=== PATIENT | female | born 1940 | race Caucasian/White ===

== ENCOUNTER 2024-04-23 08:49 | Inpatient (IN) | payer OTHER, SELFPAY ==
[2024-04-23] VITALS (28 sets, daily range): BP systolic 144–182; BP diastolic 59–88; PULSE 51–104; TEMP 36.6–37.1; O2SAT 93–98; BMI 29.6; BMI 29.7
--- NOTE | 2024-04-23 09:11 | XR_ITS ---
The [address] [address] Patient Name: BERNARDINO GUZMAN MRN: [id number] date: 1940 Sex: F Assigned Patient Location: ER Current Patient Location: ER Accession/Order Number: [id number] Exam Date: 04/23/2024 09:30 Report Date: 04/23/2024 11:06 At the request of: ERIS BRODY Procedure: XR chest 1V EXAMINATION: XR chest 1V HISTORY: shortness of breath COMPARISON: No relevant comparison available. TECHNIQUE: AP portable FINDINGS: LUNGS: Low lung volumes. Moderate bibasilar infiltrates left greater than right obscuring the hemidiaphragms and heart borders VASCULATURE: Moderately increased pulmonary vascularity PLEURA: No pneumothorax. Bilateral pleural effusions CARDIAC: No cardiomegaly or cardiac silhouette abnormality. MEDIASTINUM: No visible mass or adenopathy. BONES: No fracture or visible bone lesion. OTHER: Negative. XR/XR chest 1V IMPRESSION: Moderate bibasilar infiltrates likely consolidation and pleural effusions, left greater than right Electronically authenticated by: SABINE HARRIS Date: 04/23/2024 11:06
--- NOTE | 2024-04-23 09:11 | ECG_ITS ---
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
--- NOTE | 2024-04-23 09:12 | CT_ITS ---
The [address] [address] Patient Name: BERNARDINO GUZMAN MRN: [facility]:[id number] date: 1940 Sex: F Assigned Patient Location: ER Current Patient Location: ER Accession/Order Number: [id number] Exam Date: 04/23/2024 09:30 Report Date: 04/23/2024 10:13 At the request of: ERIS BRODY Procedure: CT cervical spine wo con EXAM: CT head/brain wo con, CT cervical spine wo con HISTORY: fall, history of prior odontoid fracture COMPARISON: CT head and cervical spine 01/27/2024. TECHNIQUE: Axial noncontrast CT imaging of the head and cervical spine was performed with coronal and sagittal reformats. This CT exam was performed using one or more of the following dose reduction techniques: Automated exposure control, adjustment of the MA and/or kV according to patient size, or use of iterative reconstruction technique. FINDINGS: CT head Calvarium/skull base: No evidence of acute fracture or destructive lesion. Bilateral platinum ocular lens replacements. Paranasal sinuses: No air fluid levels. Brain: No acute intracranial hemorrhage. No acute large vascular territory infarct. 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 Stable mild parenchymal volume loss. Stable expanded empty sella. No mass lesion or mass effect. No hydrocephalus. CT cervical spine Alignment: Stable alignment of the cervical spine with reversal normal cervical lordosis inferiorly. Vertebrae: Vertebral body heights are maintained. No acute fracture. Craniocervical junction: Ununited dens fracture is noted with slight increase in degree of widening along the fracture line compared to 01/27/2024 but otherwise stable alignment. Stable appearance of circumferential pannus surrounding the dens which mildly narrows the cranial cervical junction unchanged from prior. Degenerative changes: Stable degenerative change of the cervical spine most prominent at C5-C6 with a large posterior disc osteophyte complex at this level with associated advanced bilateral uncovertebral arthropathy resulting in at least moderate if not advanced canal stenosis and advanced left foraminal stenosis. Additional multilevel moderate foraminal stenosis secondary to uncovertebral and facet arthropathy is redemonstrated. Additional Comments: Vascular sclerosis. Partially visualized pleural effusions. CT/CT cervical spine wo con IMPRESSION: 1. No acute intracranial process. 2. Chronic changes described above. 3. Ununited dens fracture with minimal increase in degree of widening compared to orbit otherwise stable alignment. 4. No new/acute fractures of the cervical spine are present. 5. Stable degenerative change of the cervical spine compared to prior. 6. Partially visualized bilateral pleural effusions. Electronically authenticated by: BREA SMILEY Date: 04/23/2024 10:13
--- NOTE | 2024-04-23 09:12 | CT_ITS ---
The [address] [address] Patient Name: BERNARDINO GUZMAN MRN: [id number] date: 1940 Sex: F Assigned Patient Location: ER Current Patient Location: Accession/Order Number: [id number] Exam Date: 04/23/2024 09:30 Report Date: 04/23/2024 10:13 At the request of: ERIS BRODY Procedure: CT head/brain wo con EXAM: CT head/brain wo con, CT cervical spine wo con HISTORY: fall, history of prior odontoid fracture COMPARISON: CT head and cervical spine 01/27/2024. TECHNIQUE: Axial noncontrast CT imaging of the head and cervical spine was performed with coronal and sagittal reformats. This CT exam was performed using one or more of the following dose reduction techniques: Automated exposure control, adjustment of the MA and/or kV according to patient size, or use of iterative reconstruction technique. FINDINGS: CT head Calvarium/skull base: No evidence of acute fracture or destructive lesion. Bilateral [place] ocular lens replacements. Paranasal sinuses: No air fluid levels. Brain: No acute intracranial hemorrhage. No acute large vascular territory infarct. 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 Stable mild parenchymal volume loss. Stable expanded empty sella. No mass lesion or mass effect. No hydrocephalus. CT cervical spine Alignment: Stable alignment of the cervical spine with reversal normal cervical lordosis inferiorly. Vertebrae: Vertebral body heights are maintained. No acute fracture. Craniocervical junction: Ununited dens fracture is noted with slight increase in degree of widening along the fracture line compared to 01/27/2024 but otherwise stable alignment. Stable appearance of circumferential pannus surrounding the dens which mildly narrows the cranial cervical junction unchanged from prior. Degenerative changes: Stable degenerative change of the cervical spine most prominent at C5-C6 with a large posterior disc osteophyte complex at this level with associated advanced bilateral uncovertebral arthropathy resulting in at least moderate if not advanced canal stenosis and advanced left foraminal stenosis. Additional multilevel moderate foraminal stenosis secondary to uncovertebral and facet arthropathy is redemonstrated. Additional Comments: Vascular sclerosis. Partially visualized pleural effusions. CT/CT head/brain wo con IMPRESSION: 1. No acute intracranial process. 2. Chronic changes described above. 3. Ununited dens fracture with minimal increase in degree of widening compared to orbit otherwise stable alignment. 4. No new/acute fractures of the cervical spine are present. 5. Stable degenerative change of the cervical spine compared to prior. 6. Partially visualized bilateral pleural effusions. Electronically authenticated by: BREA SMILEY Date: 04/23/2024 10:13
--- NOTE | 2024-04-23 09:28 | PC.NURSE ---
pt sent from [facility] assisted living for increase weight gain in the last month (approx 30lbs). Weighs 162lbs now. Increased SOB as well. lungs are wheezy and pt is tachypnic. O2 sat 96% on RA. Pt also fell last night trying to get out of bed -- denies hitting head and appears to have no injury besides a skin tear to R elbow. Pt is on blood thinners. warfarin.
[2024-04-23 09:29] LABS: Hematocrit 33.5 % (36.0-48.0); Hemoglobin 10.4 g/dL (12.0-16.0); Mean Corpuscular Hemoglobin 26.3 pg (26.7-34.0); Mean Corpuscular Volume 84.8 fL (81.0-99.0); Mean Platelet Volume 11.6 fL (9.5-13.5); Platelet Count 389 10^3/uL (150-450); Red Blood Count 3.95 10^6/uL (4.20-5.40); Red Cell Distribution Width 14.3 % (11.0-15.0); White Blood Count 11.7 10^3/uL (4.0-11.0)
[2024-04-23 10:00] LABS: Lymphocytes Absolute Manual 0.93 10^3/uL (1.20-3.80); Monocytes Absolute Manual 0.58 10^3/uL (0.30-0.80); Segmented Neut Absolute Manual 10.17 10^3/uL (1.4-6.5)
--- NOTE | 2024-04-23 10:00 | ED_ITS ---
HPI HPI - General Adult General Chief complaint: Shortness of Breath/Dyspnea Stated complaint: GENERAL WEAKNESS/ FALL Time Seen by Provider: 04/23/24 08:54 Source: patient, family and medical record Mode of arrival: Wheelchair Limitations: physical limitation History of Present Illness HPI narrative: 84-year-old female to the emergency department with chief complaint of fall and difficulty walking. Patient had a cervical spine injury in January which led to a hospitalization and a rehab stay afterwards. She has been living at the [facility] ever since the accident in January. Patient has a history of atrial fibrillation as well as heart failure. She has not seen her lighting adviser in some time. She was seen by Dr. Castillo previously at [facility] for a pacemaker placement. Family reports that she has gained 30 pounds in the last month despite taking Lasix 40 mg oral daily. The weight seems to be in her legs. Initially it was her lower legs are edematous but now it is spreading up to her upper legs. She has not required oxygen. She has not had any fever, sweats, chills, cough, shortness of breath. She denies any chest discomfort. Related Data Home Medications ?Medication ?Instructions ?Recorded ?Confirmed acetaminophen 500 mg capsule 1,000 mg PO .Q8HRS PRN fever or 04/23/24 04/23/24 pain cholecalciferol (vitamin D3) 25 25 mcg PO DAILY 04/23/24 04/23/24 mcg (1,000 unit) capsule citalopram 20 mg tablet (Celexa) 20 mg PO DAILY 04/23/24 04/23/24 cyanocobalamin (vitamin B-12) 1,000 mcg PO DAILY 04/23/24 04/23/24 1,000 mcg capsule diltiazem HCl 120 mg 120 mg PO .QHS 04/23/24 04/23/24 capsule,extended release 12 hr furosemide 20 mg tablet 40 mg PO DAILY 04/23/24 04/23/24 insulin lispro 100 unit/mL 1 sliding scale dose subcut 04/23/24 04/23/24 subcutaneous cartridge (Humalog USEASDIRECTD U-100 Insulin) lisinopril 2.5 mg tablet 2.5 mg PO DAILY 04/23/24 04/23/24 loperamide 2 mg capsule (Imodium 2 mg PO Q12H PRN loose stool 04/23/24 04/23/24 A-D) sennosides 8.6 mg capsule (senna) 8.6 mg PO DAILY PRN constipation 04/23/24 04/23/24 simvastatin 40 mg tablet 40 mg PO .QHS 04/23/24 04/23/24 trazodone 50 mg tablet 50 mg PO DAILY 04/23/24 04/23/24 warfarin 2.5 mg tablet 2.5 mg PO DAILY 04/23/24 04/23/24 Allergies Allergy/AdvReac Type Severity Reaction Status Date / Time No Known Drug Allergies Allergy Verified 04/23/24 09:05 Opioid HPI Opioid Management Most Recent Opioid Data: No Data to Display Review of Systems ROS Status of ROS 10 or more systems reviewed and unremark able except as noted in history and below Exam Narrative Exam Narrative: VITALS: I have reviewed the triage vital signs. GENERAL: Chronically ill-appearing elderly female in no distress NEURO: Alert and oriented. Moves all extremities. Face is symmetric and expressive. EYES: PERRL. No scleral icterus or conjunctival injection. No discharge. HENT: Normocephalic, atraumatic. Hearing is grossly intact. Nares grossly patent and without discharge. Mucous membranes moist. NECK: No JVD. Patient moves neck without restriction. CARDIO: Rhythm regular. Normal rate. No murmur, rub, or gallop. Pulses equal bilaterally in the upper and lower extremity. 3+ pitting edema to the lower extremities bilaterally. PULM: Trace Rales at the bases, otherwise clear. No conversational dyspnea. No splinting, stridor, or accessory muscle use. GI/: Abdomen is soft and non-tender. Normoactive bowel sounds. EXTREMITIES: Symmetric muscle bulk. No joint swelling. No clubbing, cyanosis, or deformity. SKIN: Warm and dry. Normal turgor. No rash or lesions appreciated. PSYCH: Mood, affect, and interaction is appropriate to the setting. Constitutional Vital Signs, click to edit/add: Last Vital Signs Temp 97.8 F 04/23/24 08:53 Pulse 84 04/23/24 11:10 Resp 21 H 04/23/24 11:10 BP 147/74 H 04/23/24 10:31 Pulse Ox 97 04/23/24 11:10 O2 Del Method Room Air 04/23/24 09:20 Course Vital Signs Vital signs: Vital Signs Temperature 97.8 F 04/23/24 08:53 Pulse Rate 81 04/23/24 08:53 Respiratory Rate 18 04/23/24 08:53 Blood Pressure 154/59 H 04/23/24 08:53 Pulse Oximetry 95 04/23/24 08:53 Oxygen Delivery Method Room Air 04/23/24 08:53 Temperature 97.8 F 04/23/24 08:53 Pulse Rate 84 04/23/24 11:10 Respiratory Rate 21 H 04/23/24 11:10 Blood Pressure 147/74 H 04/23/24 10:31 Pulse Oximetry 97 04/23/24 11:10 Oxygen Delivery Method Room Air 04/23/24 09:20 Medical Decision Making MDM Narrative Medical decision making narrative: Elderly female with fluid gain of 30 pounds over the last month. Vital stable, the patient is afebrile. She does have significant lower extremity edema. Cardiac workup is initiated. She did have a fall. Does not appear to have any extremity injuries or axial injuries. CT head and cervical spine are ordered given her advanced age and inability to rule out by clinical decision rules alone. Patient and her daughter agree with this plan. CT head: Negative CT C-spine: Nonunion of prior dens fracture. Widening of fracture. Lab work reviewed and noted. She has a slight increase in creatinine from 1.3 on recent outpatient labs to 1.5. No major electrolyte abnormalities. She is mildly supratherapeutic on her Coumadin, no intervention required at this time. Her troponin is within normal limits. Her BNP is significantly elevated correlating with her volume overloaded status. EKG without evidence of ischemia. She is intermittently paced on telemetry monitoring. Chest x-ray appears to have some evidence of volume overload and pleural effusion on my read. Radiologist read includes atelectasis versus consolidation bibasilar. Patient does not have a cough, fever and requirement. I do not believe that there is a pneumonia present clinically. I did call and discussed the CT cervical spine findings with Dr. Nieto her orthospine surgeon at [facility]. He reports that this is the expected appearance of a fibrous union. He has no further concerns at this time. If she is having neck discomfort she may wear a soft cervical collar. Patient does not have any neck pain at this time and is neurologically intact. Lasix was given. Case was discussed with the hospitalist who agreed admit this patient to his service Medical Records Medical records reviewed: Yes I reviewed the patient's medical records Lab Data Lab results reviewed: Yes I reviewed the patient's lab results Labs: Lab Results 04/23/24 04/23/24 Range/Units 09:10 09:58 WBC 11.7 H (4.0-11.0) 10^3/uL RBC 3.95 L (4.20-5.40) 10^6/uL Hgb 10.4 L (12.0-16.0) g/dL Hct 33.5 L (36.0-48.0) % MCV 84.8 (81.0-99.0) fL MCH 26.3 L (26.7-34.0) pg MCHC 31.0 (29.9-35.2) g/dL RDW 14.3 (11.0-15.0) % Plt Count 389 (150-450) 10^3/uL MPV 11.6 (9.5-13.5) fL Seg Neuts % (Manual) 87.0 H (43.0-75.0) Lymphocytes % (Manual) 8.0 L (20.5-60.0) % Monocytes % (Manual) 5.0 (1.7-12.0) % Eosinophils % (Manual) 0.0 L (0.9-7.0) % Basophils % (Manual) 0.0 L (0.2-2.0) % Neutrophils # (Manual) 10.17 H (1.4-6.5) 10^3/uL Lymphocytes # (Manual) 0.93 L (1.20-3.80) 10^3/uL Monocytes # (Manual) 0.58 (0.30-0.80) 10^3/uL Eosinophils # (Manual) 0.00 (0.00-0.70) 10^3/uL Basophils # (Manual) 0.00 (0.00-0.10) 10^3/uL PT 32.1 H (9.0-11.6) sec INR 3.42 APTT 39.4 H (22.3-36.2) sec Sodium 135 L (136-145) mmol/L Potassium 4.4 (3.5-5.1) mmol/L Chloride 99 (98-107) mmol/L Carbon Dioxide 25.2 (21.0-32.0) mmol/L Anion Gap 15.2 BUN 23.0 H (7.0-18.0) mg/dL Creatinine 1.52 H (0.55-1.02) mg/dL Est GFR ( Amer) 39 L (>=60 mL/min/1.73m^2) Est GFR (Non-Af Amer) 33 L (>=60 mL/min/1.73m^2) BUN/Creatinine Ratio 15.1 Glucose 208 H (74-106) mg/dL Calcium 9.1 (8.5-10.1) mg/dL Troponin I High Sens 23.6 (4.0-51.3) pg/mL NT-Pro-B Natriuret Pep 5984.0 H* (<=1800.0) pg/mL Imaging Data CT scan - head: Attestation: I have reviewed the pertinent imaging results. Radiologist's impression: ITS Impressions Chest X-Ray 04/23/24 09:11 IMPRESSION: Moderate bibasilar infiltrates likely consolidation and pleural effusions, left greater than right Electronically authenticated by: SABINE HARRIS Date: 04/23/2024 11:[address] 04/23/24 09:12 IMPRESSION: 1. No acute intracranial process. 2. Chronic changes described above. 3. Ununited dens fracture with minimal increase in degree of widening compared to orbit otherwise stable alignment. 4. No new/acute fractures of the cervical spine are present. 5. Stable degenerative change of the cervical spine compared to prior. 6. Partially visualized bilateral pleural effusions. Electronically authenticated by: BREA SMILEY Date: 04/23/2024 10:[address] 04/23/24 09:12 IMPRESSION: 1. No acute intracranial process. 2. Chronic changes described above. 3. Ununited dens fracture with minimal increase in degree of widening compared to orbit otherwise stable alignment. 4. No new/acute fractures of the cervical spine are present. 5. Stable degenerative change of the cervical spine compared to prior. 6. Partially visualized bilateral pleural effusions. Electronically authenticated by: BREA SMILEY Date: 04/23/2024 10:13 ECG Data Attestation: I personally reviewed and interpreted this ECG as follows: (Atrial fibrillation at a rate of about 80. No STEMI. Normal QTc.) Discharge Plan Discharge Chief Complaint: Shortness of Breath/Dyspnea Clinical Impression: Congestive heart failure, Volume overload, Supratherapeutic INR, Accidental fall, Atrial fibrillation Patient Disposition: Admitted As Inpatient Time of Disposition Decision: 11:57 Condition: Fair Prescriptions / Home Meds: No Action loperamide [Imodium A-D] 2 mg capsule 2 mg PO Q12H PRN (Reason: loose stool) lisinopril 2.5 mg tablet 2.5 mg PO DAILY senna 8.6 mg capsule 8.6 mg PO DAILY PRN (Reason: constipation) simvastatin 40 mg tablet 40 mg PO .QHS trazodone 50 mg tablet 50 mg PO DAILY cyanocobalamin (vitamin B-12) 1,000 mcg capsule 1,000 mcg PO DAILY warfarin 2.5 mg tablet 2.5 mg PO DAILY acetaminophen 500 mg capsule 1,000 mg PO .Q8HRS PRN (Reason: fever or pain) citalopram [Celexa] 20 mg tablet 20 mg PO DAILY cholecalciferol (vitamin D3) 25 mcg (1,000 unit) capsule 25 mcg PO DAILY diltiazem HCl 120 mg capsule,extended release 12 hr 120 mg PO .QHS furosemide 20 mg tablet 40 mg PO DAILY Humalog U-100 Insulin 100 unit/mL cartridge 1 sliding scale dose subcut USEASDIRECTD Print Language: Kiswahili Referrals: RIKKI PINEDO DO [Primary Care Provider] - 1 week
[2024-04-23 10:27] LABS: INR 3.42; Partial Thromboplastin Time 39.4 sec (22.3-36.2); Prothrombin Time 32.1 sec (9.0-11.6)
[2024-04-23 10:28] LABS: Anion Gap 15.2; BUN Creatinine Ratio 15.1; Calcium 9.1 mg/dL (8.5-10.1); Carbon Dioxide 25.2 mmol/L (21.0-32.0); Chloride 99 mmol/L (98-107); Estimated GFR (African America 39 (>=60 mL/min/1.73m^2); Estimated GFR (Non-African Ame 33 (>=60 mL/min/1.73m^2); Glucose 208 mg/dL (74-106); Potassium 4.4 mmol/L (3.5-5.1); Sodium 135 mmol/L (136-145); Troponin I High Sensitivity 23.6 pg/mL (4.0-51.3)
--- NOTE | 2024-04-23 11:44 | CA_ITS ---
Patient Name: BERNARDINO GUZMAN MR#: [id number] : 1940 Exam Date: 04/23/2024 Ordering Doctor: SHAIKH Jordan MCCOY . ECHOCARDIOGRAM REPORT PROCEDURE: CA ECHO DOPPLER COMPLETE INDICATIONS: chf, atrial fibrillation, pacemaker, chronic kidney disease COMPARISON: None. DESCRIPTION: COMPLETE ECHOCARDIOGRAM Real-time transthoracic echocardiography with 2D, M-mode, spectral and color flow Doppler performed. QUALITY: Technical quality was good. LEFT VENTRICLE: Normal chamber size. Normal left ventricular wall thickness. Overall systolic function appears preserved. The septum is abnormal and motion consistent with right ventricular pressure/volume overload. LV EF: Normal left ventricular ejection fraction, (55%). DIASTOLIC: Not adequately assessed due to heart rhythm. ATRIAL SEPTUM: LEFT ATRIUM: Severe dilatation. RIGHT ATRIUM: Moderate dilatation. RIGHT VENTRICLE: Mild chamber dilatation. Normal systolic function. Pacer wire present. TRICUSPID VALVE: Normal mobility and thickness. No stenosis with moderate to severe regurgitation. Doppler studies reveal moderately (45-60) elevated right sided pressures. RVSP 52 mmHg MITRAL VALVE: Moderately thickened with decreased mobility. Severe mitral annular calcification. Moderate regurgitation. AORTIC VALVE: Normal trileaflet appearance. Thickened aortic valve. Normal leaflet mobility. No aortic regurgitation. AORTIC ROOT: Normal diameter and appearance. PULMONIC VALVE: Normal thickness and mobility. No stenosis. Trivial regurgitation. PERICARDIUM: Small to moderate mostly posterior pericardial effusion. IVC: Collapses with inspirations. IVC is normal in size. PLEURA: CONCLUSION: 1. Left ventricular size and systolic function. LVEF is 55%. 2. Mildly dilated right ventricle with normal systolic function. 3. Moderate severe biatrial dilatation. 4. Moderate severe tricuspid regurgitation. 5. Moderate mitral regurgitation. 6. Moderately elevated right-sided pressures. 7. Small to moderate mostly posterior pericardial effusion. Adult Echocardiography Procedure Report Left Ventricle LVEDD (3.7 - 5.6 cm): 4.37 cm LVESD (2.2 - 4.0 cm): 3.63 cm LVIVS thickness (0.6 - 1.2 cm): 0.81 cm LVPW thickness (0.5 - 1.0 cm): 1.01 cm e': 1.75 m/s LVOT Max Gradient: 1.10 mm[Hg], 1.21 mm[Hg] LVOT Area (cm2): 0.54 m/s Peak Velocity (LVOT): 0.52 m/s, 0.55 m/s LVOT Diameter 1.66 cm Left Atrium Left Atrium Systolic Dimension: 3.97 cm Mitral Valve Right Ventricle Aorta AO Root Diam: 2.54 cm Aortic Valve AoV Area (Peak Trenotn): 1.10 cm2, 0.94 cm2, 1.30 cm2 Peak Velocity(Antegrade Flow): 1.20 m/s, 0.92 m/s Peak Gradient(Antegrade Flow): 5.78 mm[Hg], 3.36 mm[Hg] Tricuspid Valve Peak Velocity (Regurgitant Flow): 3.40 m/s, 3.18 m/s, 3.47 m/s, 3.50 m/s, 4.27 m/s, 3.11 m/s, 3.43 m/s Pulmonic Valve Peak Velocity: 1.26 m/s Peak Gradient: 5.97 mm[Hg], 6.66 mm[Hg] Right Atrium Right Atrium Systolic Pressure: 36.86 ml, 36.86 ml Dictated by: Mat Connolly M.D. on 04/23/2024 at 17:07 Approved by: Mat Connolly M.D. on 04/23/2024 at 17:13
[2024-04-23] MEDS: FUROSEMIDE 40 MG/4 ML VIAL IVP ×2 (12:16→21:14)
--- NOTE | 2024-04-23 13:43 | P.HP_ITS ---
HPI H&P: HPI History of Present Illness Chief complaint: GENERAL WEAKNESS/ FALL, FLUID OVERLOAD, CHF EXAC Narrative: 84-year-old female who currently lives in an assisted living facility presented to ER for increasing generalized weakness, progressively worsening lower extremity edema, shortness of breath on exertion and a weight gain of about 30 pounds in past few weeks. Patient is being treated for volume overload with oral Lasix as outpatient. As far as the patient and her daughter could tell, she does not have a history of congestive heart failure and has not had an echocardiogram recently. She does has a history of A-fib and has a pacemaker for it and currently uses Coumadin for stroke prophylaxis. Workup in ER revealed bilateral pleural effusion, elevated BNP, slightly worse serum creatinine. Patient was treated with IV Lasix and admitted for acute on chronic diastolic heart failure. Patient denies shortness of breath currently but is noted to have tachypnea at rest. Denies cough, fever, chest pain. Opioid HPI Opioid Management Most Recent Pain and Opioid Data: No Data to Display Review of Systems ROS Status of ROS 10 or more systems reviewed and unremark able except as noted in history and below PFSH PFSH Medical History (Updated 04/23/24 @ 13:47 by Shaikh León MD) PAD (peripheral artery disease) ?I73.9 - Peripheral vascular disease, unspecified (ICD-10) CKD stage 3 secondary to diabetes ?E11.22 - Type 2 diabetes mellitus with diabetic chronic kidney disease (ICD- 10) ?N18.30 - Chronic kidney disease, stage 3 unspecified (ICD-10) Type 2 diabetes mellitus ?E11.9 - Type 2 diabetes mellitus without complications (ICD-10) On Coumadin for atrial fibrillation ?I48.91 - Unspecified atrial fibrillation (ICD-10) ?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 Smoking status: Never smoker Non-prescribed substance use: denies use Meds Home Medications and Allergies Home Medications ?Medication ?Instructions ?Recorded ?Confirmed ?Type acetaminophen 500 mg capsule 1,000 mg PO .Q8HRS PRN fever or 04/23/24 04/23/24 History pain cholecalciferol (vitamin D3) 25 25 mcg PO DAILY 04/23/24 04/23/24 History mcg (1,000 unit) capsule citalopram 20 mg tablet (Celexa) 20 mg PO DAILY 04/23/24 04/23/24 History cyanocobalamin (vitamin B-12) 1,000 mcg PO DAILY 04/23/24 04/23/24 History 1,000 mcg capsule diltiazem HCl 120 mg 120 mg PO .QHS 04/23/24 04/23/24 History capsule,extended release 12 hr furosemide 20 mg tablet 40 mg PO DAILY 04/23/24 04/23/24 History insulin lispro 100 unit/mL 1 sliding scale dose subcut 04/23/24 04/23/24 History subcutaneous cartridge (Humalog USEASDIRECTD U-100 Insulin) lisinopril 2.5 mg tablet 2.5 mg PO DAILY 04/23/24 04/23/24 History loperamide 2 mg capsule (Imodium 2 mg PO Q12H PRN loose stool 04/23/24 04/23/24 History A-D) sennosides 8.6 mg capsule (senna) 8.6 mg PO DAILY PRN constipation 04/23/24 04/23/24 History simvastatin 40 mg tablet 40 mg PO .QHS 04/23/24 04/23/24 History trazodone 50 mg tablet 50 mg PO DAILY 04/23/24 04/23/24 History warfarin 2.5 mg tablet 2.5 mg PO DAILY 04/23/24 04/23/24 History Allergies Allergy/AdvReac Type Severity Reaction Status Date / Time No Known Drug Allergies Allergy Verified 04/23/24 09:05 Exam Constitutional Vital Signs, click to edit/add: Last Vital Signs Temp 97.8 F 04/23/24 08:53 Pulse 84 04/23/24 11:10 Resp 21 H 04/23/24 11:10 BP 182/83 H 04/23/24 12:16 Pulse Ox 97 04/23/24 11:10 O2 Del Method Room Air 04/23/24 09:20 Documenting provider has reviewed patient's vital signs: yes Common normals: oriented x3 General appearance: cooperative and comfortable HENMT Common normals: normocephalic and head/scalp atraumatic Head and scalp: normocephalic and atraumatic Eye Common normals: conjunctivae normal and no scleral icterus Conjunctiva: conjunctiva(e) normal Respiratory Common normals: normal respiratory effort Effort & inspection: tachypneic Auscultation: rales bilateral at the base and diminished lung sounds bilateral in the lower lung berman Cardio Common normals: regular rate, S1 normal heart sound and S2 normal heart sound Jugular venous distention: JVD to the level of the angle of the jaw Rhythm: abnormal rhythm Heart sounds: S1 normal and S2 normal GI Common normals: Normal to inspection, nondistended, normoactive bowel sounds present, soft to palpation, non-tender and no hepatosplenomegaly Palpation: soft and no hepatosplenomegaly Extremity General: edema (+2 LE edema) Neuro Common normals: oriented x3, moves all extremities and no focal motor deficits Psych Common normals: mental status grossly normal, denies hallucinations, denies homicidal ideation and denies suicidal ideation Results Labs Labs: Short CBC 04/23/24 Range/Units 09:10 WBC 11.7 H (4.0-11.0) 10^3/uL Hgb 10.4 L (12.0-16.0) g/dL Hct 33.5 L (36.0-48.0) % Plt Count 389 (150-450) 10^3/uL BMP 04/23/24 09:58 Sodium 135 L Potassium 4.4 Chloride 99 Carbon Dioxide 25.2 BUN 23.0 H Creatinine 1.52 H Glucose 208 H Calcium 9.1 Assessment and Plan Assessment and Plan (1) Acute on chronic diastolic (congestive) heart failure: Assessment and Plan: Volume overload on exam, associated LE edema, Pleural effusion. Started on IV lasix 40 q12. Monitor I.O, daily weight. ECHO ordered. (2) Volume overload: Assessment and Plan: Likely due to congestive HF. Starte on IV lasix. Monitor serum electrolytes, renal function, UO, and daily weight. ECHO ordered Qualifiers: Hypervolemia type: other Qualified Code(s): E87.79 - Other fluid overload (3) Accidental fall: Assessment and Plan: No acute injury. PT/OT eval Qualifiers: Encounter type: subsequent encounter Qualified Code(s): W19.XXXD - Unspecified fall, subsequent encounter (4) Supratherapeutic INR: Assessment and Plan: Hold Coumadin. Dose based on INR. (5) Permanent atrial fibrillation: Assessment and Plan: Rate controlled. sp PPM. On Coumadin for strok px. (6) On Coumadin for atrial fibrillation: Assessment and Plan: INR above goal. Hold coumadin. Resume based on INR tomorrow. (7) Type 2 diabetes mellitus: Assessment and Plan: SSI while inpatient. 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 on IV lasix.
--- NOTE | 2024-04-23 14:32 | SWNOTE1 ---
Pt is from [facility]. SW spoke to OT and pt/family may be interested in her returning to [facility] to get more therapy. SW to stop in and speak with pt and family.
--- NOTE | 2024-04-23 14:55 | SWNOTE1 ---
Case management spoke with pt and they do want her to go skilled. Referral will be sent once OT is in. SW spoke to OT and PT will not be over until around 5:00. SW called over to outpt therapy and advised if anyoen has cancellations before 5:00 to come see the pt to complete assessment. Pt is a precert to [facility].
--- NOTE | 2024-04-23 15:01 | CM.NOTE ---
Discharge planning discussed with pt and daughter regarding recommendations from OT (skilled therapy). Pt still awaiting to see PT for evaluation. Pt is in agreement for skilled therapy at discharge. Pt would like to do skilled therapy at [facility], pt comes from [facility] at [facility]. Called and spoke to Maisha in admissions, clinical sent for referral (Physician notes, OT, vitals, x-rays, labs and awaiting PT notes).
[2024-04-23] MEDS: DILTIAZEM HCL 120 MG CAP.ER.24H PO (15:05)
[2024-04-23 15:11] LABS: Glucometer 235 mg/dL (74-106)
--- NOTE | 2024-04-23 15:22 | SWNOTE1 ---
Referral has been sent to [facility]. SW asked Maisha what time she was there until so nursing can send over PT note, SW waiting for response.
--- NOTE | 2024-04-23 15:56 | SWNOTE1 ---
Maisha will start precert and CARMELO left fax number for nursing to send over PT note once completed this evening that will go to [facility] email so they can attach for precert.
[2024-04-23] MEDS: INSULIN ASPART 300 UNIT/3 ML PEN SUBQ ×2 (16:01→21:13)
[2024-04-23 20:33] LABS: Glucometer 262 mg/dL (74-106)
[2024-04-23] MEDS: ATORVASTATIN CALCIUM 20 MG TABLET PO (21:14)
--- NOTE | 2024-04-23 21:31 | PC.NURSE ---
iv attempt restart times 2 without success. 1st one to left forearm with small amount of blood return. Puffed up when flushed. #22 gauge catheter used. 2nd attempt to left hand without success with #22 gauge cathter. Patient tolerated well.
[2024-04-24] VITALS (20 sets, daily range): BP systolic 114–157; BP diastolic 66–84; PULSE 61–118; TEMP 36.2–36.8; O2SAT 92–100
--- NOTE | 2024-04-24 06:34 | PC.NURSE ---
smear of BM
[2024-04-24 06:46] LABS: Basophils Absolute Auto 0.1 10^3/uL (0.0-0.1); Basophils Percent Auto 0.6 % (0.2-2.0); Eosinophils Absolute Auto 0.1 10^3/uL (0.0-0.7); Hematocrit 33.1 % (36.0-48.0); Hemoglobin 10.3 g/dL (12.0-16.0); Immature Granulocytes Abs Auto 0.04 10^3/uL (0.00-0.03); Immature Granulocytes Pct Auto 0.4 % (0.0-0.5); Lymphocytes Absolute Auto 0.9 10^3/uL (1.2-3.8); Lymphocytes Percent Auto 9.4 % (20.5-60.0); Mean Corpuscular HGB Conc 31.1 g/dL (29.9-35.2); Mean Corpuscular Volume 83.6 fL (81.0-99.0); Mean Platelet Volume 9.7 fL (9.5-13.5); Monocytes Absolute Auto 0.7 10^3/uL (0.3-0.8); Monocytes Percent Auto 6.8 % (1.7-12.0); Neutrophils Absolute Auto 8.2 10^3/uL (1.4-6.5); Neutrophils Percent Auto 81.8 % (43.0-75.0); Platelet Count 367 10^3/uL (150-450); Red Blood Count 3.96 10^6/uL (4.20-5.40); Red Cell Distribution Width 14.1 % (11.0-15.0)
[2024-04-24 06:59] LABS: INR 3.27; Prothrombin Time 30.8 sec (9.0-11.6)
[2024-04-24 07:02] LABS: Alanine Aminotransferase 21 U/L (14-59); Albumin Globulin Ratio 0.8; Albumin Level 2.7 g/dL (3.4-5.0); Alkaline Phosphatase 60 U/L (46-116); Anion Gap 14.2; Aspartate Amino Transferase 20 U/L (15-37); BUN Creatinine Ratio 14.2; Bilirubin Total 0.5 mg/dL (0.2-1.0); Calcium 8.5 mg/dL (8.5-10.1); Carbon Dioxide 24.7 mmol/L (21.0-32.0); Chloride 98 mmol/L (98-107); Estimated GFR (African America 39 (>=60 mL/min/1.73m^2); Estimated GFR (Non-African Ame 32 (>=60 mL/min/1.73m^2); Globulin 3.5 g/dL; Glucose 225 mg/dL (74-106); Potassium 3.9 mmol/L (3.5-5.1); Sodium 133 mmol/L (136-145); Total Protein 6.2 g/dL (6.4-8.2)
[2024-04-24 07:26] LABS: Glucometer 215 mg/dL (74-106)
--- NOTE | 2024-04-24 08:43 | PT.DAILY ---
Physical Therapy Daily Note PT Daily Note/Assess Start: 04/24/24 08:31 Freq: Status: Active Protocol: Document 04/24/24 08:31 [id number] (Rec: 04/24/24 08:43 [id number]) Physical Therapy Daily Note/Assessment Time In/Time Out Time In 07:55 Time Out 08:11 Pain In Pain Level 0 Pain Out Pain Level 0 Subjective Subjective Patient received seated in chair at bedside with alarm engaged. Patient somnolent, but is agreeable to participate with physical therapy. Therapeutic Exercise Time Therapeutic Exercise Minutes (minutes) 6 Therapeutic Exercise Units 0 Therapeutic Exercise Treatment Therapeutic Exercise Treatment Patient O2 Sat @ 93% at rest. Patient performed seated KVNG LE ther ex to increase strength for improving functional mobility. Ther ex includes toe/heel raises, SAQ, marching, resisted hip ABD/ ADD and side stepping x 10 reps. Patient required verbal cueing to participate secondary to being somnolent. Patient O2 Sats after ther ex 93%. Therapeutic Activity Time Therapeutic Activity Minutes (minutes) 10 Therapeutic Activity Units 1 Therapeutic Activity Treatment Chair Transfer Ability Contact Guard Assist,Minimum Assist Therapeutic Activity Comments Chair alarm disengaged. O2 Sats @ rest 93%. Sit>stand> 2WW x 2 reps MIN A +1 w/ Verbal cues for safe hand placement to push up on chair arm rests. Patient ambulated ~ 30 feet with 2WW, gait belt w/ CGA +1. Patient did experience one episode of the R knee buckling while ambulating, patient able to recover without assistance. Patient seated in chair at bedside, chair alarm re- engaged, CBWR. Patient O2 Sats after ambulation was 87%. O2 Sats returned to 93% after 2 minutes of seated therapeutic rest. Total Physical Therapy Time Total Therapy Minutes 16 Total Physical Therapy Units 1 Summary Daily Note Summary Patient somnolent while seated in chair to participate with ther ex to KVNG LE. Alertness improved with functional movement. Patient is at risk for falls secondary to somnolence and weakness to KVNG LE during functional movement . Patient would benefit from SNF, patient prefers the [facility] to address functional deficits for safety.
[2024-04-24] MEDS: CHOLECALCIFEROL (VITAMIN D3) 25 MCG/1,000 UNITS TABLET PO (09:19)
[2024-04-24] MEDS: FUROSEMIDE 40 MG/4 ML VIAL IVP ×2 (09:19→21:05)
[2024-04-24] MEDS: DILTIAZEM HCL 120 MG CAP.ER.24H PO (09:19)
[2024-04-24] MEDS: CITALOPRAM HYDROBROMIDE 20 MG TABLET PO (09:19)
[2024-04-24] MEDS: INSULIN ASPART 300 UNIT/3 ML PEN SUBQ ×3 (09:20→21:05)
--- NOTE | 2024-04-24 09:50 | P.PN_ITS ---
Progress Note: Subjective Subjective Interval history: When I saw patient in the medical surgical floor, she was up in a chair, awake but somnolent Exam Constitutional Vital Signs, click to edit/add: Last Vital Signs Temp 97.1 F L 04/24/24 08:42 Pulse 80 04/24/24 08:49 Resp 20 04/24/24 08:42 BP 114/70 04/24/24 08:42 Pulse Ox 94 L 04/24/24 08:42 O2 Del Method Room Air 04/24/24 08:42 Documenting provider has reviewed patient's vital signs: yes Common normals: oriented x3 General appearance: cooperative and comfortable HENMT Common normals: head/scalp atraumatic Eye Conjunctiva: conjunctiva(e) normal Chest Common normals: inspection of chest normal Respiratory Common normals: normal respiratory effort Effort & inspection: tachypneic (Numbers better than previous day) Auscultation: rales (More in bases) bilateral at the base and diminished lung sounds bilateral in the lower lung berman Cardio Common normals: regular rate, S1 normal heart sound and S2 normal heart sound Jugular venous distention: JVD (Improved from previous documentation) Rhythm: abnormal rhythm Heart sounds: S1 normal and S2 normal GI Common normals: Normal to inspection, nondistended, normoactive bowel sounds present, soft to palpation, non-tender and no hepatosplenomegaly Extremity Common normals: abnormal to inspection (3+ edema bilateral lower extremities) General: edema (+2 LE edema) Neuro Common normals: oriented x3, moves all extremities and no focal motor deficits Psych Common normals: mental status grossly normal, denies hallucinations, denies homicidal ideation and denies suicidal ideation Progress Note: Objective Labs Labs: Short CBC 04/24/24 Range/Units 06:40 WBC 10.0 (4.0-11.0) 10^3/uL Hgb 10.3 L (12.0-16.0) g/dL Hct 33.1 L (36.0-48.0) % Plt Count 367 (150-450) 10^3/uL BMP 04/23/24 04/24/24 09:58 06:40 Sodium 135 L 133 L Potassium 4.4 3.9 Chloride 99 98 Carbon Dioxide 25.2 24.7 BUN 23.0 H 22.0 H Creatinine 1.52 H 1.55 H Glucose 208 H 225 H Calcium 9.1 8.5 Liver Function 04/24/24 Range/Units 06:40 Total Bilirubin 0.5 (0.2-1.0) mg/dL AST 20 (15-37) U/L ALT 21 (14-59) U/L Alkaline Phosphatase 60 (46-116) U/L Albumin 2.7 L (3.4-5.0) g/dL Progress Note: A&P Assessment and Plan (1) Acute on chronic diastolic (congestive) heart failure: (2) Volume overload: Qualifiers: Hypervolemia type: other Qualified Code(s): E87.79 - Other fluid overload (3) Accidental fall: Qualifiers: Encounter type: subsequent encounter Qualified Code(s): W19.XXXD - Unspecified fall, subsequent encounter (4) Supratherapeutic INR: (5) Permanent atrial fibrillation: (6) On Coumadin for atrial fibrillation: (7) Type 2 diabetes mellitus: Qualifiers: Chronic kidney disease stage: stage 3 (moderate) Chronic kidney disease stage 3 subtype: stage 3a (GFR 45-59) Diabetes mellitus complication detail: with chronic kidney disease Diabetes mellitus complication status: with kidney complications Diabetes mellitus terminal computer operator insulin use: with terminal computer operator use Qualified Code(s): E11.22 - Type 2 diabetes mellitus with diabetic chronic kidney disease; N18.31 - Chronic kidney disease, stage 3a; 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 Acute on chronic combined (congestive) heart failure (pleural effusion, rales in lungs and peripheral edema consistent with acute combined congestive heart failure): Leg edema stable. Unable to assess intake and output secondary to incontinence. Will add Aldactone today. BUN and creatinine elevated on admission, uncertain baseline, no deterioration with diuresis so far. Volume overload: Due to acute combined congestive heart failure-diuresing as outlined above, unable to assess intake and output secondary to incontinence Accidental fall: Patient still with significant weakness and unsteadiness in gait, physical therapy recommending rehabilitation. Patient motivated for returning to current living status. 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 Continue to monitor daily Leukocytosis on admission-will check urinalysis. Is back down today to normal but does have a significant left shift consistent with a potentially bacterial process Anemia secondary to iron deficiency as well as anemia of chronic kidney disease- stable today, continue to monitor Hyponatremia-deteriorated somewhat today, continue to monitor likely related to fluid status Elevated BNP-uncertain baseline, continue to monitor likely related to chronic kidney disease stage III, check on echocardiogram Vitamin D deficiency - continue with home medications Vitamin B12 deficiency-continue with home medication Chronic constipation-continue with home medications Depression with generalized anxiety disorder-continue with home medications Hypercholesterolemia-continue with home medications Admission status: Patient admitted with acute combined congestive heart failure consistent with pleural effusions and peripheral edema. Significant diuresis will need to take effect but will be difficult based on her diabetic neuropathy nephropathy leading to chronic kidney disease stage III. Medically necessary treatment will span 2 midnights. Inpatient status.
[2024-04-24 11:05] LABS: Glucometer 199 mg/dL (74-106)
[2024-04-24] MEDS: DILTIAZEM HCL 60 MG TABLET PO (11:08)
[2024-04-24] MEDS: SPIRONOLACTONE 25 MG TABLET 50 MG PO (11:08)
[2024-04-24 13:15] LABS: Bilirubin Urine NEGATIVE (NEGATIVE); Blood Urine NEGATIVE (NEGATIVE); Clarity Urine CLEAR (CLEAR); Color Urine LT. YELLOW (YELLOW); Glucose Urine UA NEGATIVE (NEGATIVE); Ketones Urine NEGATIVE (NEGATIVE); Leukocyte Esterase Urine TRACE (NEGATIVE); Nitrite Urine NEGATIVE (NEGATIVE); Protein Urine NEGATIVE (NEG/TRACE); Urine Microscopic Indicated YES; Urobilinogen Urine 0.2 EU/dL (0.2-1.0); pH Urine 5.5 (5.0-9.0)
[2024-04-24 13:24] LABS: Bacteria Urine SMALL #/HPF (NONE SEEN); Cast Seen? SEEN #/LPF (NONE SEEN); Crystals Seen? None Seen #/HPF (None Seen); Hyaline Casts Urine RARE; Mucus Urine NONE SEEN (NONE SEEN); RBC Urine 0-2 #/HPF (0-2); Squamous Epithelial Cell Urine FEW #/LPF (NONE/RARE); Urine Culture Indicated ALREADY ORDERED; WBC Urine 0-2 #/HPF (NONE SEEN)
[2024-04-24 16:41] LABS: Glucometer 138 mg/dL (74-106)
[2024-04-24 21:04] LABS: Glucometer 314 mg/dL (74-106)
[2024-04-24] MEDS: ATORVASTATIN CALCIUM 20 MG TABLET PO (21:04)
[2024-04-24] MEDS: TRAZODONE HCL 50 MG TABLET PO (21:05)
[2024-04-24] MEDS: ACETAMINOPHEN 325 MG TABLET 650 MG PO (21:08)
[2024-04-25] VITALS (20 sets, daily range): BP systolic 131–159; BP diastolic 59–82; PULSE 51–100; TEMP 36.3–36.8; O2SAT 92–97
[2024-04-25 06:09] LABS: Basophils Percent Auto 0.5 % (0.2-2.0); Eosinophils Absolute Auto 0.1 10^3/uL (0.0-0.7); Eosinophils Percent Auto 1.4 % (0.9-7.0); Hematocrit 29.8 % (36.0-48.0); Hemoglobin 9.4 g/dL (12.0-16.0); Immature Granulocytes Abs Auto 0.05 10^3/uL (0.00-0.03); Immature Granulocytes Pct Auto 0.6 % (0.0-0.5); Lymphocytes Absolute Auto 0.8 10^3/uL (1.2-3.8); Lymphocytes Percent Auto 9.6 % (20.5-60.0); Mean Corpuscular HGB Conc 31.5 g/dL (29.9-35.2); Mean Corpuscular Hemoglobin 26.2 pg (26.7-34.0); Mean Platelet Volume 9.9 fL (9.5-13.5); Monocytes Absolute Auto 0.8 10^3/uL (0.3-0.8); Monocytes Percent Auto 9.8 % (1.7-12.0); Neutrophils Absolute Auto 6.5 10^3/uL (1.4-6.5); Neutrophils Percent Auto 78.1 % (43.0-75.0); Platelet Count 332 10^3/uL (150-450); Red Blood Count 3.59 10^6/uL (4.20-5.40); Red Cell Distribution Width 14.2 % (11.0-15.0); White Blood Count 8.4 10^3/uL (4.0-11.0)
[2024-04-25 06:22] LABS: INR 2.36
[2024-04-25 06:24] LABS: Alanine Aminotransferase 16 U/L (14-59); Albumin Globulin Ratio 0.7; Albumin Level 2.3 g/dL (3.4-5.0); Alkaline Phosphatase 46 U/L (46-116); Aspartate Amino Transferase 16 U/L (15-37); BUN Creatinine Ratio 16.2; Bilirubin Total 0.4 mg/dL (0.2-1.0); Calcium 8.7 mg/dL (8.5-10.1); Carbon Dioxide 28.4 mmol/L (21.0-32.0); Chloride 101 mmol/L (98-107); Estimated GFR (African America 41 (>=60 mL/min/1.73m^2); Estimated GFR (Non-African Ame 34 (>=60 mL/min/1.73m^2); Globulin 3.3 g/dL; Glucose 61 mg/dL (74-106); Potassium 3.4 mmol/L (3.5-5.1); Sodium 138 mmol/L (136-145); Total Protein 5.6 g/dL (6.4-8.2)
[2024-04-25] MEDS: POTASSIUM CHLORIDE 10 MEQ ER TABLET PO ×2 (09:04→20:31)
[2024-04-25] MEDS: DILTIAZEM HCL 180 MG CAP.ER.24H PO (09:04)
[2024-04-25] MEDS: CITALOPRAM HYDROBROMIDE 20 MG TABLET PO (09:04)
[2024-04-25] MEDS: FUROSEMIDE 40 MG/4 ML VIAL IVP ×2 (09:04→20:31)
[2024-04-25] MEDS: ENSURE HP 237 ML LIQUID PO ×2 (09:04→20:30)
[2024-04-25] MEDS: CHOLECALCIFEROL (VITAMIN D3) 25 MCG/1,000 UNITS TABLET PO (09:04)
--- NOTE | 2024-04-25 09:42 | P.PN_ITS ---
Progress Note: Subjective Subjective Interval history: Patient was sleeping upon arrival into her room, awakened easily and answers questions appropriately Exam Constitutional Vital Signs, click to edit/add: Last Vital Signs Temp 97.5 F L 04/25/24 09:09 Pulse 51 L 04/25/24 09:09 Resp 16 04/25/24 09:09 BP 139/78 04/25/24 09:09 Pulse Ox 94 L 04/25/24 09:09 O2 Del Method Room Air 04/25/24 09:09 Documenting provider has reviewed patient's vital signs: yes Common normals: oriented x3 General appearance: cooperative and comfortable HENMT Common normals: head/scalp atraumatic Eye Conjunctiva: conjunctiva(e) normal Chest Common normals: inspection of chest normal Respiratory Common normals: normal respiratory effort Effort & inspection: tachypneic (Numbers better than previous day) Auscultation: rales (More in bases) bilateral at the base and diminished lung sounds bilateral in the lower lung berman Cardio Common normals: regular rate, S1 normal heart sound and S2 normal heart sound Jugular venous distention: JVD (Improved from previous documentation) Rhythm: abnormal rhythm Heart sounds: S1 normal and S2 normal GI Common normals: Normal to inspection, nondistended, normoactive bowel sounds present, soft to palpation, non-tender and no hepatosplenomegaly Extremity Common normals: abnormal to inspection (2-3+ edema bilateral lower extremities) General: edema (+2 LE edema) Neuro Common normals: oriented x3, moves all extremities and no focal motor deficits Psych Common normals: mental status grossly normal, denies hallucinations, denies homicidal ideation and denies suicidal ideation Progress Note: Objective Labs Labs: Short CBC 04/25/24 Range/Units 05:45 WBC 8.4 (4.0-11.0) 10^3/uL Hgb 9.4 L (12.0-16.0) g/dL Hct 29.8 L (36.0-48.0) % Plt Count 332 (150-450) 10^3/uL BMP 04/25/24 05:45 Sodium 138 Potassium 3.4 L Chloride 101 Carbon Dioxide 28.4 BUN 24.0 H Creatinine 1.48 H Glucose 61 L Calcium 8.7 Liver Function 04/25/24 Range/Units 05:45 Total Bilirubin 0.4 (0.2-1.0) mg/dL AST 16 (15-37) U/L ALT 16 (14-59) U/L Alkaline Phosphatase 46 (46-116) U/L Albumin 2.3 L (3.4-5.0) g/dL Urine /24 Range/Units 12:45 Urine Color Lt. yellow (YELLOW) Urine Clarity Clear (CLEAR) Urine pH 5.5 (5.0-9.0) Ur Specific [place] 1.010 (1.005-1.025) Urine Protein Negative (NEG/TRACE) mg/dL Urine Glucose (UA) Negative (NEGATIVE) mg/dL Progress Note: A&P Assessment and Plan (1) Acute on chronic diastolic (congestive) heart failure: (2) Volume overload: Qualifiers: Hypervolemia type: other Qualified Code(s): E87.79 - Other fluid overload (3) Accidental fall: Qualifiers: Encounter type: subsequent encounter Qualified Code(s): W19.XXXD - Unspecified fall, subsequent encounter (4) Supratherapeutic INR: (5) Permanent atrial fibrillation: (6) On Coumadin for atrial fibrillation: (7) Type 2 diabetes mellitus: Qualifiers: Chronic kidney disease stage: stage 3 (moderate) Chronic kidney disease stage 3 subtype: stage 3a (GFR 45-59) Diabetes mellitus complication detail: with chronic kidney disease Diabetes mellitus complication status: with kidney complications Diabetes mellitus neurology professor insulin use: with neurology professor use Qualified Code(s): E11.22 - Type 2 diabetes mellitus with diabetic chronic kidney disease; N18.31 - Chronic kidney disease, stage 3a; Z79.4 - automation test 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 Acute on chronic combined (congestive) heart failure (pleural effusion, rales in lungs and peripheral edema consistent with acute combined congestive heart failure): Leg edema slightly improved with the addition of Aldactone, will repeat that dose again today. So far kidney function test is improved Volume overload: See outlined above Accidental fall: Patient still with significant weakness and unsteadiness in gait, physical therapy recommending rehabilitation. Patient motivated for returning to current living status. 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 Continue to monitor daily Leukocytosis on admission-UA is unremarkable, awaiting culture Anemia secondary to iron deficiency as well as anemia of chronic kidney disease- stable today,-Down slightly today Hyponatremia-improved to normal today Hypokalemia-supplement Elevated BNP-uncertain baseline, continue to monitor likely related to chronic kidney disease stage III, check on echocardiogram Vitamin D deficiency - continue with home medications Vitamin B12 deficiency-continue with home medication Chronic constipation-continue with home medications Depression with generalized anxiety disorder-continue with home medications Hypercholesterolemia-continue with home medications Admission status: Patient admitted with acute combined congestive heart failure consistent with pleural effusions and peripheral edema. Significant diuresis will need to take effect but will be difficult based on her diabetic neuropathy nephropathy leading to chronic kidney disease stage III. Medically necessary treatment will span 2 midnights. Inpatient status.
[2024-04-25] MEDS: SPIRONOLACTONE 25 MG TABLET 50 MG PO (11:27)
[2024-04-25 11:28] LABS: Glucometer 123 mg/dL (74-106)
[2024-04-25 16:11] LABS: Glucometer 281 mg/dL (74-106)
[2024-04-25] MEDS: WARFARIN SODIUM 2.5 MG TABLET PO (17:25)
[2024-04-25] MEDS: INSULIN ASPART 300 UNIT/3 ML PEN SUBQ ×2 (17:25→20:31)
[2024-04-25 20:07] LABS: Glucometer 295 mg/dL (74-106)
[2024-04-25] MEDS: HYDROXYZINE HCL 10 MG TABLET PO (20:30)
[2024-04-25] MEDS: TRAZODONE HCL 50 MG TABLET PO (20:31)
[2024-04-25] MEDS: ATORVASTATIN CALCIUM 20 MG TABLET PO (20:31)
[2024-04-26] VITALS (18 sets, daily range): BP systolic 128–154; BP diastolic 61–74; PULSE 57–100; TEMP 36.4–36.9; O2SAT 91–98
[2024-04-26 07:32] LABS: Basophils Absolute Auto 0.1 10^3/uL (0.0-0.1); Basophils Percent Auto 0.6 % (0.2-2.0); Eosinophils Absolute Auto 0.2 10^3/uL (0.0-0.7); Eosinophils Percent Auto 1.6 % (0.9-7.0); Hematocrit 30.7 % (36.0-48.0); Hemoglobin 9.5 g/dL (12.0-16.0); Immature Granulocytes Abs Auto 0.06 10^3/uL (0.00-0.03); Immature Granulocytes Pct Auto 0.5 % (0.0-0.5); Lymphocytes Absolute Auto 0.8 10^3/uL (1.2-3.8); Lymphocytes Percent Auto 7.5 % (20.5-60.0); Mean Corpuscular HGB Conc 30.9 g/dL (29.9-35.2); Mean Corpuscular Hemoglobin 25.8 pg (26.7-34.0); Mean Corpuscular Volume 83.4 fL (81.0-99.0); Monocytes Absolute Auto 0.8 10^3/uL (0.3-0.8); Monocytes Percent Auto 7.6 % (1.7-12.0); Neutrophils Percent Auto 82.2 % (43.0-75.0); Platelet Count 330 10^3/uL (150-450); Red Blood Count 3.68 10^6/uL (4.20-5.40); Red Cell Distribution Width 14.3 % (11.0-15.0); White Blood Count 10.9 10^3/uL (4.0-11.0)
[2024-04-26 07:46] LABS: Prothrombin Time 19.8 sec (9.0-11.6)
[2024-04-26 07:52] LABS: Glucometer 287 mg/dL (74-106)
[2024-04-26 08:04] LABS: Alanine Aminotransferase 16 U/L (14-59); Albumin Globulin Ratio 0.7; Albumin Level 2.3 g/dL (3.4-5.0); Alkaline Phosphatase 49 U/L (46-116); Anion Gap 8.4; Aspartate Amino Transferase 15 U/L (15-37); BUN Creatinine Ratio 17.9; Bilirubin Total 0.4 mg/dL (0.2-1.0); Calcium 8.6 mg/dL (8.5-10.1); Carbon Dioxide 31.8 mmol/L (21.0-32.0); Chloride 99 mmol/L (98-107); Estimated GFR (African America 42 (>=60 mL/min/1.73m^2); Estimated GFR (Non-African Ame 34 (>=60 mL/min/1.73m^2); Globulin 3.4 g/dL; Glucose 306 mg/dL (74-106); Potassium 4.2 mmol/L (3.5-5.1); Sodium 135 mmol/L (136-145); Total Protein 5.7 g/dL (6.4-8.2)
[2024-04-26] MEDS: DILTIAZEM HCL 180 MG CAP.ER.24H PO (09:15)
[2024-04-26] MEDS: FUROSEMIDE 40 MG/4 ML VIAL IVP ×2 (09:15→21:22)
[2024-04-26] MEDS: POTASSIUM CHLORIDE 10 MEQ ER TABLET PO ×2 (09:15→21:22)
[2024-04-26] MEDS: CHOLECALCIFEROL (VITAMIN D3) 25 MCG/1,000 UNITS TABLET PO (09:15)
[2024-04-26] MEDS: CITALOPRAM HYDROBROMIDE 20 MG TABLET PO (09:15)
[2024-04-26] MEDS: ENSURE HP 237 ML LIQUID PO ×2 (09:15→21:22)
--- NOTE | 2024-04-26 09:28 | CM.NOTE ---
Rounds made [facility] Dr. Turner, pt will discharge to [facility] for skilled therapy when medically stable.
[2024-04-26] MEDS: INSULIN ASPART 300 UNIT/3 ML PEN SUBQ ×2 (09:29→12:07)
--- NOTE | 2024-04-26 09:44 | P.PN_ITS ---
Progress Note: Subjective Subjective Interval history: Again sleeping upon arrival but awakens easily., No new complaints. Not sure if the swelling in her legs feels better to her Exam Constitutional Vital Signs, click to edit/add: Last Vital Signs Temp 98.0 F 04/26/24 04:00 Pulse 79 04/26/24 08:00 Resp 18 04/26/24 04:00 BP 128/73 04/26/24 04:00 Pulse Ox 91 L 04/26/24 04:00 O2 Del Method Room Air 04/26/24 04:00 Documenting provider has reviewed patient's vital signs: yes Common normals: oriented x3 General appearance: cooperative and comfortable HENMT Common normals: head/scalp atraumatic Eye Conjunctiva: conjunctiva(e) normal Chest Common normals: inspection of chest normal Respiratory Common normals: normal respiratory effort Effort & inspection: tachypneic (Numbers better than previous day) Auscultation: rales (More in bases) bilateral at the base and diminished lung sounds bilateral in the lower lung berman Cardio Common normals: regular rate, S1 normal heart sound and S2 normal heart sound Jugular venous distention: JVD (Improved from previous documentation) Rhythm: abnormal rhythm Heart sounds: S1 normal and S2 normal GI Common normals: Normal to inspection, nondistended, normoactive bowel sounds present, soft to palpation, non-tender and no hepatosplenomegaly Extremity Common normals: abnormal to inspection (2-3+ edema bilateral lower extremities) General: edema (1-2+ LE edema-somewhat improved from previous day) Neuro Common normals: oriented x3, moves all extremities and no focal motor deficits Psych Common normals: mental status grossly normal, denies hallucinations, denies homicidal ideation and denies suicidal ideation Progress Note: Objective Labs Labs: Short CBC 04/26/24 Range/Units 07:02 WBC 10.9 (4.0-11.0) 10^3/uL Hgb 9.5 L (12.0-16.0) g/dL Hct 30.7 L (36.0-48.0) % Plt Count 330 (150-450) 10^3/uL BMP 04/26/24 07:02 Sodium 135 L Potassium 4.2 Chloride 99 Carbon Dioxide 31.8 BUN 26.0 H Creatinine 1.45 H Glucose 306 H Calcium 8.6 Liver Function 04/26/24 Range/Units 07:02 Total Bilirubin 0.4 (0.2-1.0) mg/dL AST 15 (15-37) U/L ALT 16 (14-59) U/L Alkaline Phosphatase 49 (46-116) U/L Albumin 2.3 L (3.4-5.0) g/dL Progress Note: A&P Assessment and Plan (1) Acute on chronic diastolic (congestive) heart failure: (2) Volume overload: Qualifiers: Hypervolemia type: other Qualified Code(s): E87.79 - Other fluid overload (3) Accidental fall: Qualifiers: Encounter type: subsequent encounter Qualified Code(s): W19.XXXD - Unspecified fall, subsequent encounter (4) Supratherapeutic INR: (5) Permanent atrial fibrillation: (6) On Coumadin for atrial fibrillation: (7) Type 2 diabetes mellitus: Qualifiers: Chronic kidney disease stage: stage 3 (moderate) Chronic kidney disease stage 3 subtype: stage 3a (GFR 45-59) Diabetes mellitus complication detail: with chronic kidney disease Diabetes mellitus complication status: with kidney complications Diabetes mellitus intermediate insulin use: with pack operator use Qualified Code(s): E11.22 - Type 2 diabetes mellitus with diabetic chronic kidney disease; N18.31 - Chronic kidney disease, stage 3a; 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 Acute on chronic combined (congestive) heart failure (pleural effusion, rales in lungs and peripheral edema consistent with acute combined congestive heart failure): Leg edema improving with IV Lasix and on day 2 of the addition of Aldactone. So far improving with that., Initial observation day on day 1 today 2, patient was not improved with therapy and required change to inpatient status Volume overload: See outlined above Accidental fall: Patient still with significant weakness and unsteadiness in gait, physical therapy recommending rehabilitation. Patient motivated for returning to current living status. Excellent rehabilitation candidate Supratherapeutic INR: Therapeutic level today-continue to monitor Permanent atrial fibrillation: Currently with excellent rate control, continue with current treatment plan On Coumadin for atrial fibrillation: Resume Coumadin at lower dose today Type 2 diabetes mellitus: Sugars are fluctuating a lot. This likely has to do with her p.o. intake. Maintain current treatment plan CKD stage 3 secondary to diabetes: Despite aggressive diuresis over the last 2 days, creatinine is actually improving Leukocytosis on admission-UA is unremarkable, awaiting culture Anemia secondary to iron deficiency as well as anemia of chronic kidney disease- stable today,-stable Hyponatremia-improved to normal yesterday, back down today slightly. Hypokalemia-supplement Elevated BNP-uncertain baseline, continue to monitor likely related to chronic kidney disease stage III, check on echocardiogram Vitamin D deficiency - continue with home medications Vitamin B12 deficiency-continue with home medication Chronic constipation-continue with home medications Depression with generalized anxiety disorder-continue with home medications Hypercholesterolemia-continue with home medications Admission status: Patient admitted with acute combined congestive heart failure consistent with pleural effusions and peripheral edema. Patient attempted observation status with overnight dosing of Lasix on her first hospital stay today. Patient was not improved and needed additional IV therapy as well as alterations in medications to include addition of Aldactone. Medically necessary treatment spanning more than 2 midnights. Inpatient status starting on day 2 of hospitalization due to failed treatment during the observational period and medically necessary treatment spanning more than 2 midnights
--- NOTE | 2024-04-26 10:01 | CM.NOTE ---
Important Message From Medicare discussed with pt, pt verbalizes understanding and signs paper. Original given to pt and copy placed on pt's chart.
--- NOTE | 2024-04-26 10:12 | REH.PTDLY ---
Physical Therapy Daily Note PT Daily Note/Assess Start: 04/24/24 08:31 Freq: Status: Active Protocol: Document 04/26/24 10:04 ROSELIA (Rec: 04/26/24 10:12 ROSELIA [id number]) Physical Therapy Daily Note/Assessment Time In 09:43 Time Out 09:54 Subjective Pt gives minimal verbal responses and keeps eyes closed. Nursing in room performing vitals. Pt is alert and oriented to year, knows she is in hospital, but says she's at [place]. Therapeutic Exercise Minutes (minutes) 5 Therapeutic Exercise Units 0 Therapeutic Exercise Treatment Instructed in seated B LE exs 10x ea with HR, LAQ, marching, hip abd, and hip add squeeze for improved leg strength and mobility. Pt able to follow directions well, but continues to keep eyes closed throughout rx, only opening for seconds at a time. Therapeutic Activity Minutes (minutes) 6 Therapeutic Activity Units 1 Therapeutic Activity Comments Pt requires Min A with supine to sit transfers. CGA with sit to stand transfers. Gait training with RW CGA 45 feet with no LOB noted today. Pt moves at slower pace. When asked how it feels to get up and walk pt states Not that good when asked if she is having pain she says no. Pt does not elaborate any further . Remains up in chair post rx with call light in reach and chair alarm on for safety. Hr throughout rx ranges from 113- 117 bpm Total Therapy Minutes 11 Total Physical Therapy Units 1 Daily Note Summary Pt gives minimal information during rx, keeping her eyes closed when she's seated. Pt could benefit from SNF stay to help improve safety awareness with gait as well as stamina. Due to pt's demeanor at this time she needs assistance in caring for herself.
[2024-04-26] MEDS: CANAGLIFLOZIN 100 MG TABLET PO (10:31)
[2024-04-26] MEDS: SPIRONOLACTONE 25 MG TABLET 50 MG PO (10:31)
[2024-04-26 11:22] LABS: Glucometer 259 mg/dL (74-106)
--- NOTE | 2024-04-26 11:51 | SWNOTE1 ---
Ted at [facility] reached out for updates. SW sent PT note from weekend, nursing notes, labs, physician notes, and med list to [facility] for precert.
--- NOTE | 2024-04-26 11:56 | SWNOTE1 ---
SW sent PT note from today to [facility].
--- NOTE | 2024-04-26 15:30 | SWNOTE1 ---
SW sent progress note to [facility] for precert.
[2024-04-26 16:30] LABS: Glucometer 117 mg/dL (74-106)
[2024-04-26] MEDS: WARFARIN SODIUM 2.5 MG TABLET PO (17:31)
[2024-04-26 19:40] LABS: Glucometer 83 mg/dL (74-106)
[2024-04-26] MEDS: ATORVASTATIN CALCIUM 20 MG TABLET PO (21:22)
[2024-04-26] MEDS: TRAZODONE HCL 50 MG TABLET PO (21:22)
[2024-04-27] VITALS (10 sets, daily range): BP systolic 116–130; BP diastolic 69–77; PULSE 55–105; TEMP 36.4–36.6; O2SAT 90–91
--- NOTE | 2024-04-27 05:57 | P.DS_ITS ---
DS: Providers Provider Date of admission: 04/26/24 09:43 Primary care physician: RIKKI PINEDO DO Consults: 04/23/24 11:44 Occupational Therapy Eval and Treat Routine Reason for consultation: Ambulatory dysfunction/weakness Physical Therapy Eval and Treat Routine Reason for consultation: Ambulatory dysfunction/weakness 04/24/24 09:49 Consult to Marine Steward Routine Reason for consult:: Halfway Other reason:: snf please DS: Diagnosis Discharge Diagnosis (1) Acute on chronic diastolic (congestive) heart failure: (2) Volume overload: Qualifiers: Hypervolemia type: other Qualified Code(s): E87.79 - Other fluid overload (3) Accidental fall: Qualifiers: Encounter type: subsequent encounter Qualified Code(s): W19.XXXD - Unspecified fall, subsequent encounter (4) Supratherapeutic INR: (5) Permanent atrial fibrillation: (6) On Coumadin for atrial fibrillation: (7) Type 2 diabetes mellitus: Qualifiers: Chronic kidney disease stage: stage 3 (moderate) Chronic kidney disease stage 3 subtype: stage 3a (GFR 45-59) Diabetes mellitus complication detail: with chronic kidney disease Diabetes mellitus complication status: with kidney complications Diabetes mellitus superintendent container terminal insulin use: with longterm use Qualified Code(s): E11.22 - Type 2 diabetes mellitus with diabetic chronic kidney disease; N18.31 - Chronic kidney disease, stage 3a; 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 Acute on chronic combined (congestive) heart failure (pleural effusion, rales in lungs and peripheral edema consistent with acute combined congestive heart failure): Leg edema improving with IV Lasix and on day 2 of the addition of Aldactone. So far improving with that., Initial observation day on day 1 today 2, patient was not improved with therapy and required change to inpatient status Volume overload: See outlined above Accidental fall: Patient still with significant weakness and unsteadiness in gait, physical therapy recommending rehabilitation. Patient motivated for returning to current living status. Excellent rehabilitation candidate Supratherapeutic INR: Therapeutic level today-continue to monitor Permanent atrial fibrillation: Currently with excellent rate control, continue with current treatment plan On Coumadin for atrial fibrillation: Resume Coumadin at lower dose today Type 2 diabetes mellitus: Sugars are fluctuating a lot. This likely has to do with her p.o. intake. Maintain current treatment plan CKD stage 3 secondary to diabetes: Despite aggressive diuresis over the last 2 days, creatinine is actually improving Leukocytosis on admission-UA is unremarkable, awaiting culture Anemia secondary to iron deficiency as well as anemia of chronic kidney disease- stable today,-stable Hyponatremia-improved to normal yesterday, back down today slightly. Hypokalemia-supplement Elevated BNP-uncertain baseline, continue to monitor likely related to chronic kidney disease stage III, check on echocardiogram Vitamin D deficiency - continue with home medications Vitamin B12 deficiency-continue with home medication Chronic constipation-continue with home medications Depression with generalized anxiety disorder-continue with home medications Hypercholesterolemia-continue with home medications Admission status: Patient admitted with acute combined congestive heart failure consistent with pleural effusions and peripheral edema. Patient attempted observation status with overnight dosing of Lasix on her first hospital stay today. Patient was not improved and needed additional IV therapy as well as alterations in medications to include addition of Aldactone. Medically necessary treatment spanning more than 2 midnights. Inpatient status starting on day 2 of hospitalization due to failed treatment during the observational period and medically necessary treatment spanning more than 2 midnights DS: Summary Hospital Course Hospital Course: Patient mated with increasing shortness of breath found to have acute combined congestive heart failure. She was placed in the observation status and given IV Lasix overnight. She does not have significant urinary output with that, also persistent peripheral edema and pulmonary edema. On day 2 and medications were changed with the addition of Aldactone. Started having increasing urine output with that, breathing improved as well with that. She required 2 additional days of IV therapy with the IV Lasix as well as the additional doses of the Aldactone. She was able to work with physical therapy to the point that she will be an excellent rehabilitation candidate. Although she does have persistent peripheral edema she is improved overall and can be discharged to the rehab for a little still with the today. Medications see list. Follow-up PCP at discharge Admission status: Patient had a trial of observational status with IV Lasix overnight. She did not improve significantly. Requiring other medication adjustments with the addition of Aldactone as well as addition of Invokana. With those changes being medically necessary and the medically necessary treatment spanning more than 2 midnights. She was changed to inpatient status on day 2. Status at Discharge Overall status at discharge: patient is not back to baseline Time Spent with Patient Time attestation: Total time spent providing and/or coordinating discharge services: Time spent: greater than 30 minutes Exam Constitutional Vital Signs, click to edit/add: Last Vital Signs Temp 97.8 F 04/27/24 04:00 Pulse 65 04/27/24 04:08 Resp 18 04/27/24 04:00 BP 130/77 04/27/24 04:00 Pulse Ox 90 L 04/27/24 04:24 O2 Del Method Room Air 04/27/24 04:24 Documenting provider has reviewed patient's vital signs: yes Common normals: oriented x3 General appearance: cooperative and comfortable HENMT Common normals: head/scalp atraumatic Eye Conjunctiva: conjunctiva(e) normal Chest Common normals: inspection of chest normal Respiratory Common normals: normal respiratory effort Effort & inspection: tachypneic (Numbers better than previous day) Auscultation: rales (More in bases) bilateral at the base and diminished lung sounds bilateral in the lower lung berman Cardio Common normals: regular rate, S1 normal heart sound and S2 normal heart sound Jugular venous distention: JVD (Improved from previous documentation) Rhythm: abnormal rhythm Heart sounds: S1 normal and S2 normal GI Common normals: Normal to inspection, nondistended, normoactive bowel sounds present, soft to palpation, non-tender and no hepatosplenomegaly Extremity Common normals: abnormal to inspection (2+ edema bilateral lower extremities - improved) General: edema (2+ LE edema-somewhat improved from previous day) Neuro Common normals: oriented x3, moves all extremities and no focal motor deficits Psych Common normals: mental status grossly normal, denies hallucinations, denies homicidal ideation and denies suicidal ideation DS: Data Data Completed and Pending Labs on day of discharge: Labs from last 24 hours 04/26/24 04/26/24 04/26/24 19:40 16:29 11:21 WBC RBC Hgb Hct MCV MCH MCHC RDW Plt Count MPV Neut % (Auto) Lymph % (Auto) Jay % (Auto) Eos % (Auto) Baso % (Auto) Neut # (Auto) Lymph # (Auto) Jay # (Auto) Eos # (Auto) Baso # (Auto) Abs Immat Gran (auto) Imm/Tot Granulo (auto) PT INR Sodium Potassium Chloride Carbon Dioxide Anion Gap BUN Creatinine Est GFR ( Amer) Est GFR (Non-Af Amer) BUN/Creatinine Ratio Glucose Calcium Total Bilirubin AST ALT Alkaline Phosphatase Total Protein Albumin Globulin Albumin/Globulin Ratio Urine Color Urine Clarity Urine pH Ur Specific [place] Urine Protein Urine Glucose (UA) Urine Ketones Urine Occult Blood Urine Nitrite Urine Bilirubin Urine Urobilinogen Ur Leukocyte Esterase Urine RBC Urine WBC Ur Squamous Epith Cells Urine Crystals Urine Bacteria Urine Casts Hyaline Casts Urine Mucus Ur Culture Indicated? POC Glucose 83 117 H 259 H 04/26/24 04/26/24 04/24/24 07:51 07:02 12:45 WBC 10.9 RBC 3.68 L Hgb 9.5 L Hct 30.7 L MCV 83.4 MCH 25.8 L MCHC 30.9 RDW 14.3 Plt Count 330 MPV 10.0 Neut % (Auto) 82.2 H Lymph % (Auto) 7.5 L Jay % (Auto) 7.6 Eos % (Auto) 1.6 Baso % (Auto) 0.6 Neut # (Auto) 9.0 H Lymph # (Auto) 0.8 L Jay # (Auto) 0.8 Eos # (Auto) 0.2 Baso # (Auto) 0.1 Abs Immat Gran (auto) 0.06 H Imm/Tot Granulo (auto) 0.5 PT 19.8 H INR 2.00 Sodium 135 L Potassium 4.2 Chloride 99 Carbon Dioxide 31.8 Anion Gap 8.4 BUN 26.0 H Creatinine 1.45 H Est GFR ( Amer) 42 L Est GFR (Non-Af Amer) 34 L BUN/Creatinine Ratio 17.9 Glucose 306 H Calcium 8.6 Total Bilirubin 0.4 AST 15 ALT 16 Alkaline Phosphatase 49 Total Protein 5.7 L Albumin 2.3 L Globulin 3.4 Albumin/Globulin Ratio 0.7 Urine Color Lt. yellow Urine Clarity Clear Urine pH 5.5 Ur Specific [place] 1.010 Urine Protein Negative Urine Glucose (UA) Negative Urine Ketones Negative Urine Occult Blood Negative Urine Nitrite Negative Urine Bilirubin Negative Urine Urobilinogen 0.2 Ur Leukocyte Esterase Trace A Urine RBC 0-2 Urine WBC 0-2 A Ur Squamous Epith Cells Few A Urine Crystals None seen Urine Bacteria Small A Urine Casts Seen A Hyaline Casts Rare Urine Mucus None seen Ur Culture Indicated? Already ordered POC Glucose 287 H Discharge Plan Discharge Disposition: Xfer SNF Condition: Fair Discharge Medications: New Invokana 100 mg Tablet 100 mg PO QD Qty: 30 11RF diltiazem HCl 180 mg Capsule,Extended Release 24hr 180 mg PO QD Qty: 30 11RF Ensure Active Protein-Muscle Liquid 1 ea PO BID Qty: 5688 11RF furosemide [Lasix] 40 mg tablet 40 mg PO QAM Qty: 30 11RF Continued loperamide [Imodium A-D] 2 mg capsule 2 mg PO Q12H PRN (Reason: loose stool) senna 8.6 mg capsule 8.6 mg PO DAILY PRN (Reason: constipation) simvastatin 40 mg tablet 40 mg PO .QHS trazodone 50 mg tablet 50 mg PO DAILY cyanocobalamin (vitamin B-12) 1,000 mcg capsule 1,000 mcg PO DAILY warfarin 2.5 mg tablet 2.5 mg PO DAILY acetaminophen 500 mg capsule 1,000 mg PO .Q8HRS PRN (Reason: fever or pain) citalopram [Celexa] 20 mg tablet 20 mg PO DAILY cholecalciferol (vitamin D3) 25 mcg (1,000 unit) capsule 25 mcg PO DAILY Humalog U-100 Insulin 100 unit/mL cartridge 1 sliding scale dose subcut USEASDIRECTD hydroxyzine HCl 10 mg tablet 10 mg PO Q8H PRN (Reason: Restless) Discontinued lisinopril 2.5 mg tablet 2.5 mg PO DAILY diltiazem HCl 120 mg capsule,extended release 12 hr 120 mg PO .QHS furosemide 20 mg tablet 40 mg PO DAILY Print Language: Greenlandic Director Medical Affairs/Assistant Superintendent Instructions: Discharge to [facility] skilled Forms: Portal Instructions
[2024-04-27 06:27] LABS: Basophils Absolute Auto 0.1 10^3/uL (0.0-0.1); Basophils Percent Auto 0.5 % (0.2-2.0); Eosinophils Absolute Auto 0.2 10^3/uL (0.0-0.7); Eosinophils Percent Auto 1.5 % (0.9-7.0); Hematocrit 31.6 % (36.0-48.0); Hemoglobin 9.8 g/dL (12.0-16.0); Immature Granulocytes Abs Auto 0.04 10^3/uL (0.00-0.03); Immature Granulocytes Pct Auto 0.4 % (0.0-0.5); Lymphocytes Absolute Auto 1.1 10^3/uL (1.2-3.8); Lymphocytes Percent Auto 10.4 % (20.5-60.0); Mean Corpuscular Hemoglobin 25.7 pg (26.7-34.0); Mean Corpuscular Volume 82.9 fL (81.0-99.0); Mean Platelet Volume 9.9 fL (9.5-13.5); Monocytes Absolute Auto 1.1 10^3/uL (0.3-0.8); Monocytes Percent Auto 9.8 % (1.7-12.0); Neutrophils Absolute Auto 8.5 10^3/uL (1.4-6.5); Neutrophils Percent Auto 77.4 % (43.0-75.0); Platelet Count 325 10^3/uL (150-450); Red Blood Count 3.81 10^6/uL (4.20-5.40); Red Cell Distribution Width 14.4 % (11.0-15.0)
[2024-04-27 06:44] LABS: Alanine Aminotransferase 13 U/L (14-59); Albumin Globulin Ratio 0.7; Albumin Level 2.3 g/dL (3.4-5.0); Alkaline Phosphatase 45 U/L (46-116); Anion Gap 13.6; Aspartate Amino Transferase 17 U/L (15-37); BUN Creatinine Ratio 17.4; Bilirubin Total 0.7 mg/dL (0.2-1.0); Calcium 8.8 mg/dL (8.5-10.1); Carbon Dioxide 30.8 mmol/L (21.0-32.0); Chloride 101 mmol/L (98-107); Estimated GFR (African America 42 (>=60 mL/min/1.73m^2); Estimated GFR (Non-African Ame 35 (>=60 mL/min/1.73m^2); Globulin 3.2 g/dL; Glucose 87 mg/dL (74-106); Potassium 4.4 mmol/L (3.5-5.1); Sodium 141 mmol/L (136-145); Total Protein 5.5 g/dL (6.4-8.2)
[2024-04-27 06:57] LABS: Thyroid Stimulating Hormone 0.641 uIU/mL (0.358-3.740)
[2024-04-27] MEDS: CHOLECALCIFEROL (VITAMIN D3) 25 MCG/1,000 UNITS TABLET PO (08:31)
[2024-04-27] MEDS: ENSURE HP 237 ML LIQUID PO (08:31)
[2024-04-27] MEDS: DILTIAZEM HCL 180 MG CAP.ER.24H PO (08:32)
[2024-04-27] MEDS: CANAGLIFLOZIN 100 MG TABLET PO (08:32)
[2024-04-27] MEDS: FUROSEMIDE 40 MG/4 ML VIAL IVP (08:32)
[2024-04-27] MEDS: CITALOPRAM HYDROBROMIDE 20 MG TABLET PO (08:32)
[2024-04-27] MEDS: POTASSIUM CHLORIDE 10 MEQ ER TABLET PO (08:32)
--- NOTE | 2024-04-27 08:56 | CM.NOTE ---
Rounds made with Dr. Turner, pt will discharge to [facility] today for skilled therapy.
--- NOTE | 2024-04-27 09:09 | SWNOTE1 ---
SW had approval letter that was received by case management. Pt is approved to go to [facility]. SW reached out to [facility] to let them know and see if they received approval as well. SW to see how pt can be transported to [facility].
--- NOTE | 2024-04-27 09:52 | SWNOTE1 ---
[facility] did not receive approval letter yet, CARMELO sent over the letter we received, sent to Maisha.
--- NOTE | 2024-04-27 10:07 | SWNOTE1 ---
CARMELO received message from [facility] and pt is approved,. SW to set up transport.
--- NOTE | 2024-04-27 10:35 | REH.PTDLY ---
Physical Therapy Daily Note PT Daily Note/Assess Start: 04/24/24 08:31 Freq: Status: Active Protocol: Document 04/27/24 10:34 ROSELIA (Rec: 04/27/24 10:35 ROSELIA [id number]) Visit Not Completed Visit Not Completed Due to: Pt refusing Other Reason Visit Not Completed Pt declines rx this morning, in chair upon arrival. Has already worked with OT. Pt is being DC today to [facility]. Physical Therapy Daily Note/Assessment Time In 10:34 Time Out 10:36
--- NOTE | 2024-04-27 10:38 | SWNOTE1 ---
SW called and spoke with daughter. She had some nursing discharge questions. CARMELO advised her to call nurse Leonila. SW did speak with daughter about transport and discharge. She wants to speak with nurse first and then call SW back.
--- NOTE | 2024-04-27 11:20 | SWNOTE1 ---
CARMELO faxed over dc med rec, dc summary, and other updates to [facility]. Pt's daughter called back and she will be here at 11:30 to transport. CARMELO notified [facility] and pt's nurse. Pt is going to [facility] skilled. CARMELO took packet to the floor.
== END 2024-04-27 11:30 | DRG 292 ==
LOC: ER 12:24 → MS 13:44
PROVIDERS: Internal Medicine; Admitting Provider Family Medicine; Emergency Provider Student in an Organized Health Care Education/Training Program; PCP Family Medicine; Visit Provider Family Medicine
DX: I50.43 Acute on chronic combined systolic (congestive) and diastolic (congestive) heart failure (principal); E87.1 Hypo-osmolality and hyponatremia; I48.21 Permanent atrial fibrillation; R26.81 Unsteadiness on feet; R53.1 Weakness; R79.1 Abnormal coagulation profile; E11.22 Type 2 diabetes mellitus with diabetic chronic kidney disease; D50.9 Iron deficiency anemia, unspecified; D63.1 Anemia in chronic kidney disease; E87.6 Hypokalemia; R79.89 Other specified abnormal findings of blood chemistry; E55.9 Vitamin D deficiency, unspecified; E53.8 Deficiency of other specified B group vitamins; K59.09 Other constipation; F32.A Depression, unspecified; F41.1 Generalized anxiety disorder; E78.00 Pure hypercholesterolemia, unspecified; R00.0 Tachycardia, unspecified; N18.31 Chronic kidney disease, stage 3a; D72.829 Elevated white blood cell count, unspecified; Z95.0 Presence of cardiac pacemaker; Z91.81 History of falling; Z79.899 Other long term (current) drug therapy; Z79.4 Long term (current) use of insulin; Z79.01 Long term (current) use of anticoagulants
CPT/HCPCS: 36415; 70450; 71045; 72125; 80048; 80053; 81001; 82948; 83880; 84436; 84443; 84484; 85007; 85025; 85027; 85610; 85730; 87086; 87150; 87186; 93005; 93306; 94761; 96374; 97161; 97165; 97530; 97535; 99285; G0378; J1940

== ENCOUNTER 2025-01-13 21:46 | Emergency (ER) | payer OTHER, SELFPAY ==
--- OUTSIDE RECORDS SUMMARY | 2025-01-04 11:45 | XMS_ITS | Encounter Summary ---
Author Organization [facility] Address [address] [place] [address] Phone Care Team Providers Care Fork Truck Driver Name Role Phone Apurva Tatum MD Primary Care Provider [phone] Taty Castillo MD Unavailable Reason for Referral * Imaging (Routine) - Pending Review Specialty Diagnoses / Procedures Referred By Lior ferguson Referred To Contact Cardiology Diagnoses Pacemaker Sinus node dysfunction (Multi) Procedures Cardiac Device Check - Remote Taty Castillo MD [address] [facility], [address] [address] Phone: tel: fax: Referral ID Status Reason Start Date Expiration Date Visits Requested Visits Authorized [id number] Pending Review Perform Procedure 04/06/2024 04/06/2025 1 1 Reason for Visit * Imaging (Routine) - Pending Review Specialty Diagnoses / Procedures Referred By Lior ferguson Referred To Contact Cardiology Diagnoses Pacemaker Sinus node dysfunction (Multi) Procedures Cardiac Device Check - Remote Taty Castillo MD [address] [facility], [facility] [address] [place] [address] Phone: tel: fax: Referral ID Status Reason Start Date Expiration Date Visits Requested Visits Authorized [id number] Pending Review Perform Procedure 04/06/2024 04/06/2025 1 1 Encounter Details Date Type Department Care Team (Latest Contact Info) Description 01/04/2025 11:45 AM EDT - 01/04/2025 11:59 PM EDT Hospital Encounter [facility] [address] [place] [address] Pacemaker; Sinus node dysfunction (Multi) Discharge Disposition: Home Social History Tobacco Use Types Packs/Day Years Used Date Smoking Tobacco: Never Smokeless Tobacco: Never Alcohol Use Standard Drinks/Week Comments Yes 0 (1 standard drink = 0.6 oz pur e alcohol) rare Comments Unknown Sex and Gender Information Value Date Recorded Sex Assigned at Not on file Legal Sex Female 8:40 PM EST Gender Identity Not on file Sexual Orientation Not on file documented as of this encounter Medications at Time of Discharge cholecalciferol (Vitamin D3) 25 MCG (1000 UT) capsule Take 1 capsule (25 mcg) by mouth once daily. FreeStyle Ryan 2 Sensor kit Use sensor as directed every 2 weeks 06/04/2023 furosemide (Lasix) 20 mg tabletIndications :Essential hypertension, benign Take 1 tablet (20 mg) by mouth every other day. as directed 45 tablet 3 12/30/2023 guaiFENesin (Robitussin) 100 mg/5 mL syrup Take 10 mL (200 mg) by mouth 3 times a day as needed for cough. hydrOXYzine HCL (Atarax) 10 mg tablet Take 1 tablet (10 mg) by mouth 3 times a day. As needed insulin lispro 100 unit/mL injection Inject under the skin 4 times a day. Take as directed per insulin instructions per sliding scale loperamide (Imodium) 2 mg capsule Take 1 capsule (2 mg) by mouth 2 times a day. As needed sennosides (Senokot) 8.6 mg tablet Take 1 tablet (8.6 mg) by mouth once daily. As needed simvastatin (Zocor) 20 mg tablet Take 2 tablets (40 mg) by mouth once daily at bedtime. traZODone (Desyrel) 50 mg tablet Take 1 tablet (50 mg) by mouth once daily at bedtime. warfarin (Coumadin) 2 mg tabletIndications :Permanent atrial fibrillation (Multi) TAKE 1 TO 2 TABLETS BY MOUTH DAILY or as directed per [facility] 180 tablet 3 12/30/2023 documented as of this encounter Plan of Treatment Upcoming Encounters Date Type Department Care Team (Late st Contact Info) Description 06/28/2025 2:00 PM EST Appointment [facility] [address] [place] [address] 06/28/2025 2:40 PM EST Office Visit [facility] [address] [place] [phone] Taty Castillo MD [address] [facility], [facility] [address] [place], [place] [id number] documented as of this encounter Procedures Procedure Name Priority Date/Time Associated Diagnosis Comments CARDIAC DEVICE CHECK - REMOTE - PACEMAKER Routine 01/04/2025 12:08 PM EDT Pacemaker Sinus node dysfunction (Multi) documented in this encounter Results * CARDIAC DEVICE CHECK - REMOTE - PACEMAKER (01/04/2025 12:08 PM EDT) Anatomical Region Laterality Modality Monitor/Device 01/04/2025 6:18 AM EDT us Taty Castillo MD CV IMPLANTABLE CARDIAC DEVICE MA OCEDURES Final Result documented in this encounter Visit Diagnoses Diagnosis Pacemaker Cardiac pacemaker in situ Sinus node dysfunction (Multi) documented in this encounter Care Teams Fork Truck Driver Relationship Specialty Start Date End Date Apurva Tatum MD [address] [place] [address] PCP - General 05/29/21 Taty Castillo MD [address] [facility] Medical Office [facility], [facility] [address] [place] [address] Warehouse Team Leader Electrophysiology 06/18/24 documented as of this encounter
[2025-01-13] VITALS (10 sets, daily range): BP systolic 106–138; BP diastolic 58–70; PULSE 69–92; O2SAT 88–100
--- NOTE | 2025-01-13 21:55 | ECG_ITS ---
[facility] Test Date: 2025-01-13 Pat Name: BERNARDINO GUZMAN Department: Room: - Gender: Female Co Founder And Chief Strategy Officer: : 1940 Requested By: [id number] Order Number: [id number] Juan MD: AMOL LEWIS M.D. Measurements Intervals [place] Rate: 78 P: -67055 UT: -40326 QRS: -82 QRSD: 128 T: 44 QT: 416 QTc: 449 Interpretive Statements [id number] Atrial fibrillation with demand electronic ventricular pacemaker 2450 Right bundle branch block 3114 Cannot rule out anterior myocardial infarction, age undetermined 3633 Inferior myocardial infarction, probably old 9150 abnormal ECG Compared to ECG 04/23/2024 09:05:05 Demand ventricular pacemaker is now present Myocardial infarct finding now present Electronically Signed On 01-16-2025 17:14:58 EDT by AMOL LEWIS M.D.
--- OUTSIDE RECORDS SUMMARY | 2025-01-13 22:03 | XMS_ITS | Encounter Summary ---
Author Organization [facility] Address [address] [place] [address] Care Team Providers Care Risk Management Internship Name Role Phone Apurva Tatum MD Unavailable [phone] Apurva Tatum MD Primary Care Provider Irma Hensley NP Unavailable Unavailable Unallocated, Noms Provider Primary Care Provi mina Encounter Details Date Type Department Care Team (Late st Contact Info) Description 04/12/2023 Abstract [facility] [address] [place] [phone] Apurva Tatum MD [address] [place] [address] Social History Tobacco Use Types Packs/Day Years Used Date Smoking Tobacco: Never Smokeless Tobacco: Never Alcohol Use Standard Drinks/Week Comments Never 0 (1 standard drink = 0.6 oz pure alcohol) Caffeine intake: 1-2 cups per day coffee PHQ-2 Answer Date Recorded Patient Health Questionnaire-2 Score 1 01/03/2023 Comments Unknown Sex and Gender Information Value Date Recorded Sex Assigned at Not on file Legal Sex Female 8:34 PM EDT Gender Identity Not on file Sexual Orientation Not on file documented as of this encounter Plan of Treatment Not on file documented as of this encounter Visit Diagnoses Not on filedocumented in this encounter Care Teams Risk Management Internship Relationship Specialty Start Date End Date Apurva Tatum MD [address] [place] [address] PCP - Devoted 07/14/20 Apurva Tatum MD [address] [place] [address] PCP - General Family Medicine 12/23/22 05/27/24 Unallocated, Noms Provider, [address] [place] [address] PCP - General Family Medicine 05/28/24 Irma Hensley NP [address] [place] [address] Nurse Practitioner Neurology 09/23/23 documented as of this encounter
--- OUTSIDE RECORDS SUMMARY | 2025-01-13 22:03 | XMS_ITS | Encounter Summary ---
Author Organization [facility] Address [address] [facility] [place] [address] Care Team Providers Care Fisher Dip Net Name Role Phone Apurva Tatum MD Unavailable Apurva Tatum MD Primary Care Provider Irma Hensley NP Unavailable Unavailable Unallocated, Noms Provider Primary Care Provi mina Encounter Details Date Type Department Care Team (Late st Contact Info) Description 09/04/2023 Orders Only [facility] [address] [place] [phone] Apurva Tatum MD [address] [place], [place] [id number] Social History Tobacco Use Types Packs/Day Years [...] on file documented as of this encounter Procedures Procedure Name Priority Date/Time Associated Diagnosis Comments POCT PT/INR Routine 09/02/2023 11:26 AM EST documented in this encounter Results * POCT PT/INR (09/02/2023 11:26 AM EST) us Apurva Tatum MD LAB BLOOD ORDERABLES Final Re sult documented in this encounter Visit Diagnoses Not on filedocumented in this encounter Care Teams Fisher Dip Net Relationship Specialty Start Date End Date Apurva Tatum MD [address] [place] [address] PCP - Devoted 07/14/20 Apurva Tatum MD [address] [place] [address] PCP - General Family Medicine 12/23/22 05/27/24 Unallocated, Noms Provider, [address] [place] [address] PCP - General Family Medicine 05/28/24 Irma Hensley NP [address] [place] [address] Nurse Practitioner Neurology 09/23/23 documented as of this encounter
--- OUTSIDE RECORDS SUMMARY | 2025-01-13 22:03 | XMS_ITS | Encounter Summary ---
Author Organization [facility] Address [address] [place] [address] Phone Care Team Providers Care Mold Cutting Machine Operator Name Role Phone Apurva Tatum MD Primary Care Provider [phone] Taty Castillo MD Unavailable Beba Ventura LEAD PRESSMAN-EDITORIAL CLERK Unavailable Unavailable Taty Castillo MD Unavailable Encounter Details Date Type Department Care Team (Late st Contact Info) Description 05/13/2019 Orders Only [facility] [address] [place] [address] Conversion, Onbase Social History Tobacco Use Types Packs/Day Years Used Date Smoking Tobacco: Never Assessed Comments Unknown Sex and Gender Information Value Date Recorded Sex Assigned at Not on file Legal Sex Female 8:40 PM EST Gender Identity Not on file Sexual Orientation Not on file documented as of this encounter Plan of Treatment Upcoming Encounters Date Type Department Care Team (Late st Contact Info) Description 06/28/2025 2:00 PM EST Appointment [facility] [address] [place] [address] 06/28/2025 2:40 PM EST Office Visit [facility] [address] [facility] [address] [place] [phone] Taty Castillo MD [address] [facility] Medical [address], [facility] [address] [place] [address] Scheduled Orders Name Type Priority Associated Diagnoses Orde r Schedule OUTSIDE LAB SCAN Lab Ordered: 05/13/2019 documented as of this encounter Visit Diagnoses Not on filedocumented in this encounter Care Teams Mold Cutting Machine Operator Relationship Specialty Start Date End Date Apurva Tatum MD [address] [place] [address] PCP - General 05/29/21 Taty Castillo MD [address] [place] [address] Consulting Physician Cardiology 06/27/23 06/17/24 Beba Ventura, LEAD PRESSMAN-EDITORIAL CLERK [address] [place] [address] Nurse Practitioner Cardiology 12/19/23 06/17/24 Taty Castillo MD [address] [facility] Medical Office Bld[address], [address] [place] [address] Housekeeping Director Electrophysiology 06/18/24 documented as of this encounter
--- OUTSIDE RECORDS SUMMARY | 2025-01-13 22:03 | XMS_ITS | Encounter Summary ---
Author Organization [facility] Address [address] [facility] [place] [address] Care Team Providers Care Senior Finance Manager Name Role Phone Apurva Tatum MD Unavailable Apurva Tatum MD Primary Care Provider Irma Hensley NP Unavailable Unavailable Unallocated, Noms Provider Primary Care Provi mina Encounter Details Date Type Department Care Team (Late st Contact Info) Description 01/31/2023 Orders Only [facility] [address] [place] [phone] Apurva Tatum MD [address] [place] [address] Social History Tobacco Use Types Packs/Day Years [...] Procedure Name Priority Date/Time Associated Diagnosis Comments MISCELLANEOUS LAB TEST Routine 01/22/2023 8:54 AM EDT documented in this encounter Results * - Miscellaneous Test (01/22/2023 8:54 AM EDT) us Apurva Tatum MD LAB BLOOD ORDERABLES Final Re sult documented in this encounter Visit Diagnoses Not on filedocumented in this encounter Care Teams Senior Finance Manager Relationship Specialty Start Date End Date Apurva Tatum MD [address] [place] [address] PCP - Devoted 07/14/20 Apurva Tatum MD [address] [place] [address] PCP - General Family Medicine 12/23/22 05/27/24 Unallocated, Noms Provider, [address] [place] [address] PCP - General Family Medicine 05/28/24 Irma Hensley NP [address] [place] [address] Nurse Practitioner Neurology 09/23/23 documented as of this encounter
--- OUTSIDE RECORDS SUMMARY | 2025-01-13 22:03 | XMS_ITS | Encounter Summary ---
Author Organization [facility] Address [address] [facility] [place] [address] Care Team Providers Care Foster Care Case Manager Name Role Phone Apurva Tatum MD Unavailable Apurva Tatum MD Primary Care Provider [phone] Irma Hensley NP Unavailable Unavailable Unallocated, Noms Provider Primary Care Provi mina Encounter Details Date Type Department Care Team (Late st Contact Info) Description 11/04/2023 Clinisync Result Encounter [facility] External Department Unsolicited Apurva Tatum MD [address] [place] [address] Social History Tobacco Use Types [...] Procedure Name Priority Date/Time Associated Diagnosis Comments XR SHOULDER COMPLETE RIGHT 11/04/2023 10:21 AM EDT documented in this encounter Results * XR SHOULDER COMPLETE RIGHT (11/04/2023 10:21 AM EDT) Anatomical Region Laterality Modality Other 11/04/2023 10:2 1 AM EDT Narrative 11/06/2023 1:30 PM EDT Exam Date/Time: 11/04/2023 10:40 EDT Reason for Exam: M25.511 acute paoin of right shoulder Report IMPRESSION: No acute osseous findings. Degenerative changes. EXAMINATION/TECHNIQUE: XR Shoulder Complete Right HISTORY: Right shoulder pain. COMPARISON: None RESULT: No evidence for acute fracture. No dislocation. Severe narrowing of the acromiohumeral interval, suggestive of chronic rotator cuff tearing. Moderate degenerative changes involving the glenohumeral joint. Advanced degenerative changes of the acromioclavicular joint. Underlying decreased bone mineral density. Visualized lung grossly clear. No other significant abnormality. Ordering Provider: Apurva Tatmu FINAL REPORT Dictated: 11/06/2023 1:27 pm Amor Mueller MD. Signed (Electronic Signature): 11/06/2023 1:27 pm Signed by: Amor Mueller MD Transcribed by: NORM Technologist: ISABELLA Technical Comments Radiation Dose: Ka,r in mGy = na DAP = na Procedure Note Radiology, Radiologist, - 11/06/2023 Exam Date/Time: 11/04/2023 10:40 EDT Reason for Exam: M25.511 acute paoin of right shoulder Report IMPRESSION: No acute osseous findings. Degenerative changes. EXAMINATION/TECHNIQUE: XR Shoulder Complete Right HISTORY: Right shoulder pain. COMPARISON: None RESULT: No evidence for acute fracture. No dislocation. Severe narrowing of the acromiohumeral interval, suggestive of chronic rotator cuff tearing.Moderate degenerative changes involving the glenohumeral joint. Advanceddegenerative changes of the acromioclavicular joint. Underlying decreased bone mineral density.Visualized lung grossly clear. No other significant abnormality. Ordering Provider: Deepti, Apurva FINAL REPORT Dictated: 11/06/2023 1:27 pm Amor Mueller MD Signed (Electronic Signature): 11/06/2023 1:27 pm Signed by: Amor Mueller MD Transcribed by: NORM Technologist: ISABELLA Technical Comments Radiation Dose: Ka,r in mGy = na DAP = na us Apurva Tatum MD [facility] Final Resul t documented in this encounter Visit Diagnoses Not on filedocumented in this encounter Care Teams Foster Care Case Manager Relationship Specialty Start Date End Date Apurva Tatum MD [address] [place] [address] PCP - Devoted 07/14/20 Apurva Tatum MD [address] [place] [address] PCP - General Family Medicine 12/23/22 05/27/24 Unallocated, Noms Provider, [address] [address] PCP - General Family Medicine 05/28/24 Irma Hensley NP [address] [place] [address] Nurse Practitioner Neurology 09/23/23 documented as of this encounter
--- OUTSIDE RECORDS SUMMARY | 2025-01-13 22:03 | XMS_ITS | Encounter Summary ---
Author Organization [facility] Address [address] [facility] [place] [address] Care Team Providers Care Executive Assistant To President Name Role Phone Apurva Tatum MD Unavailable Apurva Tatum MD Primary Care Provider [phone] Irma Hensley NP Unavailable Unavailable Unallocated, Noms Provider Primary Care Provi mina Encounter Details Date Type Department Care Team (Late st Contact Info) Description 05/12/2023 Orders Only [facility] [address] [place] [phone] Apurva Tatum MD [address] [place], [place] [id number] Social History Tobacco Use Types Packs/Day Years [...] Associated Diagnosis Comments MISCELLANEOUS LAB TEST Routine 05/08/2023 6:24 PM EDT documented in this encounter Results * - Miscellaneous Test (05/08/2023 6:24 PM EDT) us Apurva Tatum MD LAB BLOOD ORDERABLES Final Re sult documented in this encounter Visit Diagnoses Not on filedocumented in this encounter Care Teams Executive Assistant To President Relationship Specialty Start Date End Date Apurva Tatum MD [address] [place] [address] PCP - Devoted 07/14/20 Apurva Tatum MD [address] [place] [address] PCP - General Family Medicine 12/23/22 05/27/24 Unallocated, Noms Provider, [address] [place] [address] PCP - General Family Medicine 05/28/24 Irma Hensley NP [address] [place] [address] Nurse Practitioner Neurology 09/23/23 documented as of this encounter
--- OUTSIDE RECORDS SUMMARY | 2025-01-13 22:03 | XMS_ITS | Encounter Summary ---
Author Organization [facility] Address [address] [facility] [place] [address] Care Team Providers Care Performance Analyst Name Role Phone Apurva Tatum MD Unavailable Apurva Tatum MD Primary Care Provider [phone] Irma Hensley NP Unavailable Unavailable Unallocated, Noms Provider Primary Care Provi mina Encounter Details Date Type Department Care Team (Late st Contact Info) Description 05/08/2023 Clinisync Result Encounter [facility] External Department Unsolicited Apurva Tatum MD [address] [place] [address] Social History Tobacco Use Types [...] Procedure Name Priority Date/Time Associated Diagnosis Comments CT HEAD OR BRAIN W/O CONTRAST 05/08/2023 2:57 PM EDT documented in this encounter Results * CT HEAD OR BRAIN W/O CONTRAST (05/08/2023 2:57 PM EDT) Anatomical Region Laterality Modality Other 05/08/2023 2:57 PM EDT Narrative 05/08/2023 3:50 PM EDT Exam Date/Time: 05/08/2023 15:22 EDT Reason for Exam: G31.84 Report IMPRESSION: NO ACUTE INTRACRANIAL PROCESS OR SIGNIFICANT CHANGE FROM 11/12/2022 IDENTIFIED. EXAM: CT Head or Brain w/o Contrast DATE: 05/08/2023 CLINICAL HISTORY: G31.84. COMPARISON: 11/12/2022. TECHNIQUE: Routine. All CT scans at this facility use dose modulation, iterative reconstruction, and/or weight based dosing when appropriate to reduce radiation dose to as low as reasonably achievable. FINDINGS: There is no intracranial hemorrhage, mass effect, midline shift, extra-axial collection, evidence of hydrocephalus, skull fracture, or a recent ischemic infarct identified. 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 The mastoid air cells and visualized paranasal sinuses are essentially clear. Ordering Provider: Apurva Tatum FINAL REPORT Dictated: 05/08/2023 3:47 pm Sushil Armstrong MD Signed (Electronic Signature): 05/08/2023 3:47 pm Signed by: Sushil Armstrong MD Transcribed by: NORM Technologist: WADE Procedure Note Radiology, Radiologist, - 05/08/2023 Exam Date/Time: 05/08/2023 15:22 EDT Reason for Exam: G31.84 Report IMPRESSION: NO ACUTE INTRACRANIAL PROCESS OR SIGNIFICANT CHANGE FROM11/12/2022 IDENTIFIED. EXAM: CT Head or Brain w/o Contrast DATE: 05/08/2023 CLINICAL HISTORY: G31.84. COMPARISON: 11/12/2022. TECHNIQUE: Routine. All CT scans at this facility use dose modulation, iterativereconstruction, and/or weight based dosing when appropriate to reduce radiation dose to as low asreasonably achievable. FINDINGS: There is no intracranial hemorrhage, mass effect, midline shift,extra-axial collection, evidence of hydrocephalus, skull fracture, or a recentischemic infarct identified. 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 The mastoid air cells and visualized paranasal sinuses are essentiallyclear. Ordering Provider: Apurva Tatum FINAL REPORT Dictated: 05/08/2023 3:47 pm Sushil Armstrong MD Signed (Electronic Signature): 05/08/2023 3:47 pm Signed by: Sushil Armstrong MD Transcribed by: NORM Technologist: WADE us Apurva Tatum MD [facility] Final Resul t documented in this encounter Visit Diagnoses Not on filedocumented in this encounter Care Teams Performance Analyst Relationship Specialty Start Date End Date Apurva Tatum MD [address] [place] [address] PCP - Devoted 07/14/20 Apurva Tatum MD [address] [place] [address] PCP - General Family Medicine 12/23/22 05/27/24 Unallocated, Noms Provider, [place] [address] PCP - General Family Medicine 05/28/24 Irma Hensley NP [address] [place] [address] Nurse Practitioner Neurology 09/23/23 documented as of this encounter
--- OUTSIDE RECORDS SUMMARY | 2025-01-13 22:03 | XMS_ITS | Clinical Summary ---
Author Organization [facility] Address [address] [place] [address] Phone Care Team Providers Care Tester Armature Or Fields Name Role Phone Apurva Tatum MD Primary Care Provider [phone] Taty Castillo MD Unavailable Allergies No known active allergies Medications FreeStyle Ryan 2 Sensor kit Use sensor as directed every 2 weeks 3 Active cholecalciferol (Vitamin D3) 25 MCG (1000 UT) capsule Take 1 capsule (25 mcg) by mouth once daily. Active dilTIAZem CD (Cardizem CD) 180 mg 24 hr capsuleIndicatio ns:Permanent atrial fibrillation (Multi) Take 1 capsule (180 mg) by mouth once daily. 90 capsule 3 3 Active simvastatin (Zocor) 20 mg tablet Take 2 tablets (40 mg) by mouth once daily at bedtime. Active furosemide (Lasix) 20 mg tabletIndication s:Essential hypertension, benign Take 1 tablet (20 mg) by mouth every other day. as directed 45 tablet 3 4 Active Additional Information Patient taking differently: 40 mgoralDaily, as directed, Reported on 06/29/2024 warfarin (Coumadin) 2 mg tabletIndication s:Permanent atrial fibrillation (Multi) TAKE 1 TO 2 TABLETS BY MOUTH DAILY or as directed per NO[facility] 180 tablet 3 4 Active insulin lispro 100 unit/mL injection Inject under the skin 4 times a day. Take as directed per insulin instructions per sliding scale Active hydrOXYzine HCL (Atarax) 10 mg tablet Take 1 tablet (10 mg) by mouth 3 times a day. As needed Active loperamide (Imodium) 2 mg capsule Take 1 capsule (2 mg) by mouth 2 times a day. As needed Active guaiFENesin (Robitussin) 100 mg/5 mL syrup Take 10 mL (200 mg) by mouth 3 times a day as needed for cough. Active sennosides (Senokot) 8.6 mg tablet Take 1 tablet (8.6 mg) by mouth once daily. As needed Active traZODone (Desyrel) 50 mg tablet Take 1 tablet (50 mg) by mouth once daily at bedtime. Active Active Problems Problem Noted Date Diagnosed Date Macular degeneration 06/27/2023 Syncope 06/27/2023 Stress incontinence 06/27/2023 Urge incontinence 06/27/2023 UTI (urinary tract infection) 06/27/2023 Peripheral vascular disease 06/27/2023 Never smoked cigarettes 06/27/2023 BMI 22.0-22.9, adult 06/27/2023 Encounter for medication review and counseling 1 08/28/2022 Encounter to discuss treatment options Complete heart block 06/12/2023 Diabetes mellitus (Multi) 06/12/2023 Dizziness 06/12/2023 Edema 06/12/2023 Essential hypertension, benign 06/12/2023 Mixed hyperlipidemia 06/12/2023 Malaise and fatigue 06/12/2023 Mitral stenosis 06/12/2023 Near syncope 06/12/2023 Pacemaker 06/12/2023 Permanent atrial fibrillation (Multi) 06/12/2023 Pulmonary nodule, left 06/12/2023 Sinus node dysfunction (Multi) 06/12/2023 SOB (shortness of breath) on exertion 06/12/2023 Atherosclerosis of arteries of extremities 12/23 Cerebrovascular accident (CVA) (Multi) 3 Overview (06/27/2023): 5 years ago Chronic kidney disease due to diabetes mellitus (Multi) 12/23/2022 Intermittent claudication 12/23/2022 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 12/23/2022 Polyneuropathy due to type 2 diabetes mellitus ( Multi) 12/23/2022 Restless leg syndrome 12/23/2022 Mitral regurgitation 12/23/2022 Shuffling gait 04/03/2022 Overweight 02/01/2022 Stage 3b chronic kidney disease (Multi) 02/02/20 22 Lichen sclerosus 09/19/2021 Atherosclerosis 11/15/2020 Vitamin D deficiency 11/15/2020 Difficulty breathing 11/06/2020 Hypertensive heart and chron ic kidney disease without heart failure, with stage 1 through stage 4 chronic kidney disease, or unspecified chronic kidney disease 10/14/2016 Pure hypercholesterolemia 10/14/2016 Renovascular hypertension 10/14/2016 Stage 4 chronic kidney disease (Multi) 7 Carotid disease, bilateral 08/25/2014 Disorder of carotid artery 08/25/2014 HLD (hyperlipidemia) 08/25/2014 HTN (hypertension) 08/25/2014 Hypertension 08/25/2014 Stage 3 chronic kidney disease (Multi) 4 Type 2 diabetes mellitus 02/17/2014 Benign essential hypertension 02/17/2014 Encounters Date Type Department Care Team Description 01/04/2025 11:45 AM EDT - 01/04/2025 11:59 PM EDT Hospital Encounter [address] [phone] Pacemaker; Sinus node dysfunction (Multi) Discharge Disposition: Home from Last 3 Months Family History Medical History Relation Name Comments Diabetes type II Mother Relation Name Status Comments Mother Social History Tobacco Use Types Packs/Day Years Used Date Smoking Tobacco: Never Smokeless Tobacco: Never Tobacco Cessation:Counseling Given: No Alcohol Use Standard Drinks/Week Comments Yes 0 (1 standard drink = 0.6 oz pur e alcohol) rare Comments Unknown Sex and Gender Information Value Date Recorded Sex Assigned at Not on file Legal Sex Female 8:40 PM EST Gender Identity Not on file Sexual Orientation Not on file Last Filed Vital Signs Vital Sign Reading Time Taken Comments Blood Pressure 110/80 06/29/2024 2:29 PM EST Pulse 83 06/29/2024 2:29 PM EST Temperature - - Respiratory Rate - - Oxygen Saturation - - Inhaled Oxygen Concentration - - Weight 52.2 kg (115 lb) 12/30/2023 2:55 PM EDT Height 154.9 cm (5' 1 ) 12/30/2023 2:55 PM EDT Body Mass Index 21.73 12/30/2023 2:55 PM EDT Plan of Treatment Upcoming Encounters Date Type Department Care Team (Late st Contact Info) Description 06/28/2025 2:00 PM EST Appointment [facility] [address] [place] [address] 06/28/2025 2:40 PM EST Office Visit [facility] [address] [facility] [address] [place] [phone] Taty Castillo MD [address] [facility] [address] [place] [address] Health Maintenance Due Date Last Done Comments Bone Density Scan 1940 Diabetes: Hemoglobin A1C 1940 Medicare Annual Wellness Visit (AWV) 1940 Diabetes: Retinopathy Screening 1949 DTaP/Tdap/Td Vaccines (1 - Tdap) 1961 Zoster Vaccines (1 of 2) 1989 RSV High Risk: (Elderly (60+) or Population) (1 - 1-dose 75+ series) 2014 Echocardiogram 08/02/2020 08/02/2019 COVID-19 Vaccine ( - 2023- season) 2024 Lipid Panel 11/03/2024 11/04/2023 Creatinine Level 02/03/2025 02/04/2024, , 02/01/2024, Additional history exists Potassium Level 02/03/2025 02/04/2024, 01/12, 02/01/2024, Additional history exists Influenza Vaccine (#1) 2025 , 04/12/2021, 04/28/2020, Additional history exists Pneumococcal Vaccine Completed 04/12/2021, 04/13/20 11 Diabetes: Urine Protein Screening Discontinued 11/05/2023 HIB Vaccines Aged Out No longer eligi ble based on patient's age to complete this topic HPV Vaccines (No Doses Required) Completed Hepatitis A Vaccines Aged Out No long er eligible based on patient's age to complete this topic Hepatitis B Vaccines Aged Out No long er eligible based on patient's age to complete this topic IPV Vaccines Aged Out No longer eligi ble based on patient's age to complete this topic Meningococcal Vaccine Aged Out No rd amaya eligible based on patient's age to complete this topic Rotavirus Vaccines Aged Out No longer eligible based on patient's age to complete this topic Procedures Procedure Name Priority Date/Time Associated Diagnosis Comments CARDIAC DEVICE CHECK - REMOTE - PACEMAKER Routine 01/04/2025 12:08 PM EDT Pacemaker Sinus node dysfunction (Multi) ECHOCARDIOGRAM 08/02/2019 from Last 3 Months or Most Recently Relevant to Health Maintenance Results * CARDIAC DEVICE CHECK - REMOTE - PACEMAKER (01/04/2025 12:08 PM EDT) Anatomical Region Laterality Modality Monitor/Device 01/04/2025 6:18 AM EDT us Taty Castillo MD CV IMPLANTABLE CARDIAC DEVICE DE OCEDURES Final Result * ECHOCARDIOGRAM (08/02/2019) Narrative 08/02/2019 Ordered by an unspecified provider. us Onbase Conversion CV ECHO PROCEDURES Final Resul t from Last 3 Months or Most Recently Relevant to Health Maintenance Insurance [employer] Care Teams Tester Armature Or Fields Relationship Specialty Start Date End Date Apurva Tatum MD [address] [place] [address] PCP - General 05/29/21 Taty Castillo MD [address] [facility] [address] Office [address] [place] [address] Memory Care Program Resident Electrophysiology 06/18/24
--- OUTSIDE RECORDS SUMMARY | 2025-01-13 22:03 | XMS_ITS | Encounter Summary ---
Author Organization [facility] Address [address] [facility] [place] [address] Care Team Providers Care Nursing Home Admissions Director Name Role Phone Apurva Tatum MD Unavailable Apurva Tatum MD Primary Care Provider Irma Hensley NP Unavailable Unavailable Unallocated, [facility] Provider Primary Care Provi mina Encounter Details Date Type Department Care Team (Late st Contact Info) Description 03/19/2023 Orders Only [facility] [address] [place] [phone] Apurva Tatum MD [address] [place], [place] [id number] Social History Tobacco Use Types Packs/Day Years [...] Associated Diagnosis Comments MISCELLANEOUS LAB TEST Routine 03/14/2023 7:50 AM EDT documented in this encounter Results * - Miscellaneous Test (03/14/2023 7:50 AM EDT) us Apurva Tatum MD LAB BLOOD ORDERABLES Final Re sult documented in this encounter Visit Diagnoses Not on filedocumented in this encounter Care Teams Nursing Home Admissions Director Relationship Specialty Start Date End Date Apurva Tatum MD [address] [place] [address] PCP - [facility] 07/14/20 Apurva Tatum MD [address] [place] [address] PCP - General Family Medicine 12/23/22 05/27/24 Unallocated, [facility] Provider, [address] [place] [address] PCP - General Family Medicine 05/28/24 Irma Hensley NP [address] [place] [address] Nurse Practitioner Neurology 09/23/23 documented as of this encounter
--- OUTSIDE RECORDS SUMMARY | 2025-01-13 22:03 | XMS_ITS | Encounter Summary ---
Author Organization [facility] Address [address] [facility] [place] [address] Care Team Providers Care Contract Management Specialist Name Role Phone Apurva Tatum MD Unavailable [phone] Apurva Tatum MD Primary Care Provider Irma Hensley NP Unavailable Unavailable Unallocated, [facility] Provider Primary Care Provi mina Reason for Visit * Reason Comments Med Refill Encounter Details Date Type Department Care Team (Late st Contact Info) Description 09/04/2023 Refill [facility] [address] [place] [phone] Apurva Tatum MD [address] [place] [address] Other insomnia Social History Tobacco Use Types Packs/Day Years [...] documented as of this encounter Visit Diagnoses Diagnosis Other insomnia documented in this encounter Care Teams Contract Management Specialist Relationship Specialty Start Date End Date Apurva Tatum MD [address] [place] [address] PCP - [facility] 07/14/20 Apurva Tatum MD [address] [place] [address] PCP - General Family Medicine 12/23/22 05/27/24 Unallocated, [facility] Provider, [address] [place] [address] PCP - General Family Medicine 05/28/24 Irma Hensley NP [address] [place] [address] Nurse Practitioner Neurology 09/23/23 documented as of this encounter
--- OUTSIDE RECORDS SUMMARY | 2025-01-13 22:03 | XMS_ITS | Clinical Summary ---
Author Organization [facility] Address [address] [place] [address] Care Team Providers Care Maintenance Truck Driver Name Role Phone Apurva Tatum MD Primary Care Provider [phone] Allergies No known active allergies Medications insulin detemir (LEVEMIR) 100 UNIT/ML injection vial Inject 22 Units into the skin daily Active losartan (COZAAR) 50 MG tablet Take 50 mg by mouth daily 1 Active Multiple Vitamins-Minera ls (OCUVITE EXTRA) TABS Take 1 tablet by mouth daily 9 Active simvastatin (ZOCOR) 40 MG tablet Take 40 mg by mouth daily 2 Active clopidogrel (PLAVIX) 75 MG tablet Take 75 mg by mouth at bedtime 3 Active warfarin (COUMADIN) 2 MG tablet Take 3 mg by mouth 0 Active aspirin 81 MG EC tablet Take 81 mg by mouth daily 4 Active dilTIAZem (DILT-XR) 120 MG extended release capsule Take 120 mg by mouth at bedtime 1 Active vitamin D (CHOLECALCIFERO L) 25 MCG (1000 UT) TABS tablet Take 25 mcg by mouth daily 3 Active hydrALAZINE (APRESOLINE) 25 MG tablet Take 25 mg by mouth daily 9 Active dulaglutide (TRULICITY) 1.5 MG/0.5ML SC injection Inject 1.5 mg into the skin 3 Active furosemide (LASIX) 20 MG tablet Take 20 mg by mouth every other day Active Social History Tobacco Use Types Packs/Day Years Used Date Smoking Tobacco: Never Smokeless Tobacco: Never Tobacco Cessation:Counseling Given: Not Answered Alcohol Use Standard Drinks/Week Comments Yes 0 (1 standard drink = 0.6 oz pur e alcohol) occassional Comments No Sex and Gender Information Value Date Recorded Sex Assigned at Not on file Legal Sex Female 2:17 PM EDT Gender Identity Not on file Sexual Orientation Not on file Last Filed Vital Signs Vital Sign Reading Time Taken Comments Blood Pressure 144/86 10/11/2022 10:00 AM EDT Pulse 75 10/11/2022 10:00 AM EDT Temperature 36.3 C (97.4 F) 10/11/2022 8:45 AM EDT Respiratory Rate 12 10/11/2022 10:00 AM EDT Oxygen Saturation 98% 10/11/2022 10:00 AM EDT Inhaled Oxygen Concentration - - Weight 59.9 kg (132 lb) 10/11/2022 6:51 AM EDT Height 154.9 cm (5' 1 ) 10/11/2022 6:51 AM EDT Body Mass Index 24.94 10/11/2022 6:51 AM EDT Plan of Treatment Health Maintenance Due Date Last Done Comments Lipids 1949 Depression Screen 1951 DTaP/Tdap/Td vaccine (1 - Tdap) 1958 Shingles vaccine (1 of 2) 1989 DEXA (modify frequency per FRAX score) 1994 Respiratory Syncytial Virus (RSV) or age 60 yrs+ (1 - 1-dose 75+ series) 2014 Pneumococcal 50+ years Vaccine (2 of 2 - PPSV23) 04/12/2022 04/12/2021 COVID-19 Vaccine (3 - season) 2024 03/14/2021, 02/21/2021 Annual Wellness Visit (Medicare Advantage) 07/14/2024 Flu vaccine (#1) 02/11/2025 04/12/2021, , 04/13/2019, Additional history exists Hepatitis A vaccine Aged Out No longe r eligible based on patient's age to complete this topic Hepatitis B vaccine Aged Out No longe r eligible based on patient's age to complete this topic Hib vaccine Aged Out No longer eligi ble based on patient's age to complete this topic Meningococcal (ACWY) vaccine Aged Out No longer eligible based on patient's age to complete this topic Meningococcal B vaccine Aged Out No l onger eligible based on patient's age to complete this topic Polio vaccine Aged Out No longer elig ible based on patient's age to complete this topic Medical Devices Implanted Type Area Enrollment Specialist Device Identifier Shelf Expiration Date Model / Serial / Lot Epifix 2x2cm 4sq - [id number] Implanted:Qty: 1 on 10/11/2022 by Yimi Hensley DPM at [facility] Left: Heel [employer] 01/11/2027 [id number] / [id number] / Epifix 2x2cm [id number] Implanted:Qty: 1 on 10/11/2022 by Yimi Hensley DPM at [facility] Left: Heel [employer] 05/14/2027 [id number] / [id number] / Insurance [facility] Care Teams Maintenance Truck Driver Relationship Specialty Start Date End Date Apurva Tatum MD [address] [place] [address] PCP - General Family Medicine 10/07/22
--- NOTE | 2025-01-13 22:04 | PC.NURSE ---
per triage nurse this patient had syncope episode while sitting on the toilet, per the prison staff. during my assessment this patient is awake and alert and only oriented to herself which is normal for her. this patient voices no complaints or needs and shows no signs of distress and does not known why she is here
--- OUTSIDE RECORDS SUMMARY | 2025-01-13 22:07 | XMS_ITS | CCD ---
Author Organization [facility] Care Team Providers Care Playground Official Name Role Phone HIEU, TATY Admitting Unavailable HIEU, TATY Attending Unavailable RODRIUGEZ, ANA ROSA Primary Care Unavailable HIEU, TATY Admitting Unavailable HIEU, TATY Attending Unavailable RODRIGUEZ, ANA ROSA Primary Care Unavailable HIEU, TATY Attending Unavailable RODRIGUEZ, ANA ROSA Primary Care Unavailable HIEU, TATY Admitting Unavailable HIEU, TATY Attending Unavailable RODRIGUEZ, ANA ROSA Primary Care Unavailable HIEU, TATY Admitting Unavailable HIEU, TATY Attending Unavailable RODRIGUEZ, ANA ROSA Primary Care Unavailable HIEU, TATY Admitting Unavailable HIEU, TATY Attending Unavailable RODRIGUEZ, ANA ROSA Primary Care Unavailable HIEU, TATY Admitting Unavailable HIEU, TATY Attending Unavailable RODRIGUEZ, ANA ROSA Primary Care Unavailable HIEU, TATY Admitting Unavailable HIEU, TATY Attending Unavailable RODRIGUEZ, ANA ROSA Primary Care Unavailable RODRIGUEZ, ANA ROSA E Admitting Unavailable RODRIGUEZ, ANA ROSA E Attending Unavailable RODRIGUEZ, ANA ROSA [place] Primary Care Unavailable RODRIGUEZ, ANA ROSA [place] Consulting Unavailable Jennifer, Ana Rosa E Unavailable Unavailable Unavailable Apurva Tatum Unavailable Apurva Tatum Primary Care Physician Dr. Apurva Tatum Primary Care Unavail able BECKY [place] Attending Taty Chiu Referring Unavailable Hieu, Taty Vela Attending Unavailable Hieu, Taty Vela Referring Unavailable Dr. Apurva Tatum Primary Care Unavail able MD Apurva Tatum Primary Care Provider Unavaila MD Josh Collado Attending Provider Unavailable Unavailable Josh Mauro Unavailable Merline Jackson Unavailable Deepti Apurva ENRIQUEZ [facility] Care Provider MARIO HENSLEY Referring Unavailabl e DEEPTI, APURVA Primary Care Unavailable MARIO HENSLEY Referring Unavailabl e DEEPTI, [facility] Care Unavailable MARIO HENSLEY Admitting Unavailabl e MARIO HENSLEY Attending Unavailabl e DEEPTI APURVA [facility] Care Unavailable Deepti, Apurva [facility] Care Provider UnavailMD Josh Garcia Attending Provider Deepti, Dr. Apurva Barraza Primary Care Unavail able Hieu, Dr. Taty Vela Attending Unavailab le Hieu, Dr. Taty Vela Attending Unavailab le Deepti, Dr. Apurva Barraza [facility] Unavail able Deepti, Dr. Apurva Barraza [facility] Unavail able Hieu, Dr. Taty Vela Attending Unavailab le Hieu, Dr. Taty Vela Attending Unavailab le Deepti, Dr. Apurva Barraza [facility] Unavail able Deepti, Dr. Apurva Barraza [facility] Unavail able Hieu, Dr. Taty Vela Attending Unavailab le Deepti, Dr. Apurva Barraza [facility] Unavail able Hieu, Dr. Taty Vela Attending Unavailab le Deepti Apurva ENRIQUEZ [facility] Provider Taty Hagen MD Unavailable Taty Hagen MD Unavailable APURVA TATUM Attending Unavailable DEEPTIAPURVA Attending Unavailable MARIO VASQUEZ Attending Unavailable MARIO HENSLEY Attending Unavailabl e DEEPTI, APURVA Yepez Referring Unavailable Lavell Gomez. Admitting Unavailable Lavell Gomez. Attending Unavailable Akkina, Edmond Attending Unavailable Akkina, Edmond Admitting Unavailable Akkina, Edmond Attending Unavailable Akkina, Edmond Admitting Unavailable Deepti, Apurva Yepez Admitting Unavailable Deepti, Apurva Yepez Attending Unavailable DeeptiApurva Referring Unavailable Deepti, Apurva Yepez Admitting Unavailable Deepti, Apurva Yepez Attending Unavailable TATY HAGEN Admitting Unavailable TATY HAGEN Attending Unavailable Lavell Gomez Attending Unavailable Jenny [facility]- Nafisa Yepez Attending Unavaila ble Akkina, Edmond Attending Unavailable Akkina, Edmond Admitting Unavailable Lavell Gomez Admitting Unavailable Lavell Gomez Attending Unavailable Akkina, Edmond Attending Unavailable Akkina, Edmond Admitting Unavailable Akkina, Edmond Attending Unavailable Akkina, Edmond Admitting Unavailable Akkina, Edmond Attending Unavailable Akkina, Edmond Admitting Unavailable Akkina, Edmond Attending Unavailable Akkina, Edmond Admitting Unavailable Lorenzo WALLP[employer]ER S[employer]ER[employer]WE[employer]IL[employer] PROFESSOR, Komal E Unavailable Unavailable Primary Care Provider Unavailabl e DO Sukumar Suazo Attending Unavailable DO Sukumar Suazo Attending Unavailable Sukumar Suazo Attending Unavailable Deepti Apurva ENRIQUEZ Primary Care Provider [phone] TATY HAGEN Attending Unavailable TATY HAGEN Admitting Unavailable Negrito Maya MD Unavailable PROVIDER, UNKNOWN Admitting Unavailable DEEPTI, APURVA Primary Care Unavailable NEGRITO MAYA Attending Unavailable DEEPTI, APURVA Primary Care Unavailable PROVIDER, UNKNOWN Admitting Unavailable NEGRITO MAYA Attending Unavailable PROVIDER, UNKNOWN Admitting Unavailable EKERS, GUILLERMINA Referring Unavailable DEEPTI, APURVA Primary Care Unavailable PROVIDER, UNKNOWN Attending Unavailable PROVIDER, UNKNOWN Admitting Unavailable EKERS, GUILLERMINA Referring Unavailable DEEPTI, APURVA Primary Care Unavailable PROVIDER, UNKNOWN Attending Unavailable DEEPTI, APURVA Primary Care Unavailable KRELINDA SINGLETON A. Admitting Unavailable LAKEISHA, SUKUMAR Referring Unavailable PROVIDER, UNKNOWN Attending Unavailable DEEPTI, APURVA Primary Care Unavailable KREMANI, LINDA A. Admitting Unavailable LAKEISHA, SUKUMAR Referring Unavailable PROVIDER, UNKNOWN Attending Unavailable DEEPTI, APURVA Primary Care Unavailable IESHA GOLD Attending Unavailable KREINER, LINDA A. Admitting Unavailable LAKEISHA, SUKUMAR Referring Unavailable [phone], IP TEAM TRAUMA Consulting Unavail able REQUEST, IP PHYSICAL THERAPY SERVICE Consulting Unavailable REQUEST, IP OCCUPATIONAL THERAPY SERVICE Consult ing Unavailable REQUEST, IP HEDIS SPECIALIST SERVICE Consulting Unavaila ble CONSULT, IP GERIATRIC Consulting Unavailabl e PROVIDER, UNKNOWN Admitting Unavailable LAKEISHA, SUKUMAR Referring Unavailable PROVIDER, UNKNOWN Attending Unavailable PROVIDER, UNKNOWN Attending Unavailable SUKUMAR SUAZO Referring Unavailable PROVIDER, UNKNOWN Admitting Unavailable Merline Jackson Admitting Unavailable Merline Jackson Attending Unavailable Deepti Apurva Primary Care Unavailable Deepti, Apurva Primary Care Unavailable Josh Mauro Admitting Unavailable Josh Mauro Attending Unavailable MD Apurva Tatum Primary Care Provider MD Josh Mauro Attending Provider Taty Hagen MD Unavailable KOMAL VENTURA Attending Unavaila ble DEEPTI, [facility] Primary Care Unavailable TATY HAGEN Attending Unavailable DEEPTI, [facility] Primary Care Unavailable Taty Hagen MD Unavailable TATY HAGEN Referring Unavailable DEEPTI, [facility] Primary Care Unavailable KOMAL VENTURA Referring Unavaila ble DEEPTI, [facility] Primary Care Unavailable TATY HAGEN Referring Unavailable DEEPTI, [facility] Primary Care Unavailable TATY HAGEN Referring Unavailable DEEPTI, [facility] Primary Care Unavailable Medications Current Medications Medication Drug Class(es) Dates Sig (Normalized) Sig (Original) acetaminophen 325 mg / HYDROcodone bitartrate 5 mg oral tablet (19 sources) Opioid Agonist Start: 11-14-2022 [place] 325 mg-5 mg oral tablet 1 tab(s), Oral, q6hr for pain, 7 tab(s), Refill(s) 0 Start Date: 11/14/22 Status: Ordered Start: 01-30-2022 [place] 325 mg-5 mg oral tablet 1 tab(s), Oral, q6hr for pain, 7 tab(s), Refill(s) 0 Start Date: 01/30/22 Status: Ordered Start: 06-01-2017 End: 03-26-2018 take 1 tablet by mouth every four to six hours Hydrocodone-Acetaminophen ([place]) 5-325 mg tablet Discontinued 1 TAB PO EVERY 4-6 HOURS June 01, 2017 March 26, 2018 9:58am ascorbic acid 200 mg / beta carotene 1000 unt / cuprous oxide 2 mg / dl-alpha tocopheryl acetate 60 unt / lutein 2 mg / sodium selenate 0.055 mg / zinc oxide 40 mg oral tablet (20 sources) Vitamin C Start: 05-13-2019 take 1 tablet by mouth once daily Ocuvite oral tablet 1 tab(s), Oral, Daily, Prophylaxis Start Date: 05/13/19 Status: Ordered Start: 05-13-2019 End: 06-27-2023 take 1 tablet by mouth once daily Ocuvite oral tablet 1 tab(s), Oral, Daily, Prophylaxis Start Date: 05/13/19 Status: Ordered Ocuvite Adult 50 + Orally Active Ocuvite TABS ROSAURA E 1 TABLET DAILY. Quantity: 0 Refills: 0 Ordered: 25-May-2021 DO Active aspirin 81 mg chewable tablet (20 sources) Platelet Aggregation Inhibitor, Nonsteroidal Anti-inflammatory Drug Start: 03-23-2024 take 81 mg by mouth once daily Aspirin Active 81 MG PO Daily March 23, 2024 12:00am Start: 05-13-2019 take 1 tablet by chong th once daily aspirin 81 mg Oral EC Tab 81 mg = 1 tab(s), Oral, Daily, Prophylaxis Start Date: 05/13/19 Status: Ordered Start: 05-14-2017 End: 03-08-2024 take 81 mg by mouth once daily Aspirin Discontinued 81 MG PO Daily May 14, 2017 12:00am March 08, 2024 10:13am Start: 01-19-2014 End: 06-29-2024 take 1 tablet by mouth once daily aspirin 81 mg Oral EC Tab 81 mg = 1 tab(s), Oral, Daily, Prophylaxis Start Date: 05/13/19 Status: Ordered atorvastatin 40 mg oral tablet (9 sources) HMG-CoA Reductase Inhibitor Start: 02-01-2021 take 1 tablet by mouth at bedtime atorvastatin 40 mg Tab 40 mg = 1 tab(s), Oral, Bedtime, Refills(s) 0 Start Date: 02/01/21 Status: Ordered cefadroxil 500 mg oral capsule (1 source) Cephalosporin Antibacterial Start: 01-30-2022 End: 02-06-2022 take 1 capsule by mouth every twelve hours cefadroxil 500 mg Cap 500 mg = 1 cap(s), Oral, q12hr, X 7 day(s), # 14 cap(s), Refills(s) 0 Start Date: 01/30/22 Stop Date: 02/06/22 Status: Ordered cephalexin 500 mg oral capsule (4 sources) Cephalosporin Antibacterial Start: 03-26-2023 End: 04-02-2023 take 1 capsule by mouth every eight hours Keflex 500 mg Cap 500 mg = 1 cap(s), Oral, q8hr, X 7 day(s), # 21 cap(s), Refills(s) 0, Pharmacy: [id number], 162, cm, 03/26/23 13:32:00 EDT, Height/Length Dosing, 52, kg, 03/26/23 13:32:00 EDT, Weight Dosing Start Date: 03/26/23 Stop Date: 04/02/23 Status: Ordered Start: 11-14-2022 End: 11-19-2022 take 1 capsule by mouth three times daily Keflex 500 mg Cap 500 mg = 1 cap(s), Oral, TID, X 5 day(s), # 15 cap(s), Refills(s) 0 Start Date: 11/14/22 Stop Date: 11/19/22 Status: Ordered Check PT in 3 days (9 sources) Start: 05-14-2019 Check PT in 3 days Check PT in 3 days, Please fax result of PT/INR to primary care physician., Print Requisition, Supply Start Date: 05/14/19 Status: Ordered ciprofloxacin 500 mg oral tablet (1 source) Quinolone Antimicrobial Start: 07-24-2022 End: 07-28-2022 take 1 tablet by mouth twice daily Cipro 500 mg Tab 500 mg = 1 tab(s), Oral, BID, X 4 day(s), # 8 tab(s), Refills(s) 0, Pharmacy: [id number], 160, cm, 07/20/22 22:02:00 EST, Height/Length Dosing, 61.9, kg, 07/20/22 22:02:00 EST, Weight Dosing Start Date: 07/24/22 Stop Date: 07/28/22 Status: Ordered citalopram 20 mg oral tablet (12 sources) Serotonin Reuptake Inhibitor Start: 02-03-2024 take 20 mg by mouth once daily Citalopram Active 20 MG PO Daily March 08, 2024 12:00am Start: 01-29-2024 End: 02-02-2024 take 10 mg by mouth once daily 10 mg, Oral, DAILY, Fir st dose on Fri01/29/24 at 1230, Until Discontinued clopidogrel 75 mg oral tablet (20 sources) [id number] Platelet Inhibitor Start: 08-28-2022 End: 03-08-2024 take 1 tablet by mouth once daily clopidogrel 75 mg Tab 75 mg = 1 tab(s), Oral, Daily, # 30 tab(s), Refills(s) 0 Start Date: 08/30/22 Status: Ordered dextrose 10 % iv infusion (1 source) Start: 01-30-2024 dextrose 10 % iv infusion 24 hr dilTIAZem hydrochloride 180 mg extended release oral capsule (20 sources) Calcium Channel Jennifer Start: 06-27-2023 End: 06-26-2024 take 1 capsule by mouth once daily dilTIAZem CD (Cardizem CD) 180 mg 24 hr capsule Indications: Permanent atrial fibrillation (Multi) Take 1 capsule (180 mg) by mouth once daily. 90 capsule 3 06/27/2023 Active Start: 02-01-2021 End: 06-27-2023 take 120 mg by mouth at bedtime 120 mg, Oral, AT BEDTI ME, First dose on Fri01/28/24 at 2200, Until Discontinued take 1 capsule by [facility] once daily dilTIAZem HCl ER 120 MG Oral Capsule Extended Release 12 Hour TAKE 1 CAPSULE Daily Quantity: 0 Refills: 0 Ordered: 25-May-2021 DO Active Diltiazem Hcl (Dilt-Xr) 120 mg Capsule,Ext.Rel 24h Degradable (8 sources) Start: 08-28-2022 take 1 capsule by mouth once daily Diltiazem Hcl (Dilt-Xr) 120 mg Capsule,Ext.Rel 24h Degradable Active 120 MG PO Daily August 28, 2022 1:00am Start: 08-28-2022 take 1 capsule by mo [facility]h once daily Diltiazem Hcl (Dilt-Xr) 120 mg Capsule,Ext.Rel 24h Degradable Active 120 MG PO Daily August 28, 2022 12:00am 0.5 ml dulaglutide 3 mg/ml auto-injector (20 sources) GLP-1 Receptor Agonist Start: 08-30-2022 dulaglutide (TRULICITY) 1.5 MG/0.5ML SC injection Inject 1.5 mg into the skin Thursdays 0 08/30/2022 Active Start: 08-30-2022 Trulicity Pen 1.5 mg/0.5 mL subcutaneous solution 1.5 mg, SubCutaneous, , Refills(s) 0 Start Date: 08/30/22 Status: Ordered Start: 08-28-2022 End: 03-08-2024 Dulaglutide (Trulicity) 0.75 mg/0.5 mL Pen Injector Discontinued 0.75 MG SUBCUT every week August 28, 2022 1:00am March 08, 2024 10:14am on Start: 07-27-2022 End: 08-03-2022 inject 0.75 mg by subcutaneous injection every week Trulicity Pen 0.75 mg/0.5 mL subcutaneous solution 0.75 mg, SubCutaneous, qWeek, X 7 day(s), Refills(s) 0 Start Date: 07/27/22 Stop Date: 08/03/22 Status: Ordered Start: 05-06-2022 Trulicity 1.5 mg/0.5 mL pen injector injection Inject as directed Sub-q once weekly 0 05/06/2022 Active Start: 05-06-2022 Trulicity 1.5 MG/0.5ML Subcutaneous Solution Pen-injector Inject as directed Sub-q once weekly Quantity: 2 Refills: 0 Ordered: 06-May-2022 DO Start : 06-May-2022 Active 0.6 ml enoxaparin sodium 100 mg/ml prefilled syringe (11 sources) Low Molecular Weight Heparin Start: 02-05-2024 inject 0.5 mL by subcutaneous injection twice daily enoxaparin (LOVENOX) 60 MG/0.6ML injection Inject 0.5 mL under the skin 2 times daily. Continue until INR is therapeutic 10 Each 02/05/2024 Active Start: 02-05-2024 50 mg (rounded from 47.6 mg = 1 mg/kg 47.6 kg), Subcutaneous, 2 TIMES DAILY, First dose on Fri02/05/24 at 0930, Until Discontinued Start: 01-29-2024 End: 01-31-2024 27 mg (rounded from 27.35 mg = 0.5 mg/kg 54.7 kg Mathews weight), Subcutaneous, 2 TIMES DAILY, First dose on Miesha 01/29/24 at 1530, Until Discontinued, PACU Now Start: 05-04-2021 Enoxaparin Sod ium 60 MG/0.6ML Injection Solution Prefilled Syringe INJECT syringe TWICE DAILY 2 days prior to procedure, no injection the day before, then INJECT TWICE DAILY the day after the procedure. hold warfarin 5 (FIVE) days prior to procedure Quantity: 5 Refills: 0 Ordered: 04-May-2021 DO Start : 04-May-2021 Complete Start: 05-04-2021 Enoxaparin Sod ium 60 MG/0.6ML Subcutaneous Solution INJ twice a day 2 days prior to procedure, NO INJ the day before the procedure, then INJ twice a day the day after procedure. Hold Warfarin 5 days prior to procedure. Quantity: 4 Refills: 0 Ordered: 04-May-2021 Taty Hagen MD Start : 04-May-2021 Active FreeStyle Ryan 2 Sensor kit (11 sources) Start: 06-04-2023 FreeStyle Libr e 2 Sensor kit Use sensor as directed every 2 weeks 06/04/2023 Active Start: 06-04-2023 FreeStyle Libr e 2 Sensor kit Use sensor as directed every 2 weeks 0 06/04/2023 Active guaiFENesin 20 mg/ml oral solution (4 sources) take 10 mL by mouth three times daily as needed for cough guaiFENesin (Robitussin) 100 mg/5 mL syrup Take 10 mL (200 mg) by mouth 3 times a day as needed for cough. Active Insulin Lispro (12 sources) Insulin Analog Start: 03-08-2024 Insulin Lispro Active 1 sliding scale dose SUBCUT Use as Directed March 08, 2024 12:00am Start: 01-31-2024 inject 1-7 [IU] by s ubcutaneous injection three times daily before mealtime 1-7 Units, Subcutaneous, 3 TIMES DAILY BEFORE MEALS, First dose on 01/31/24 at 0800, Until Discontinued Start: 07-24-2022 End: 07-24-2022 Insulin Lispro Sliding Scale 0-10 Units, Injection-Insulin, SubCutaneous, Start date 07/24/22 7:30:00 EST Start Date: 07/24/22 Stop Date: 07/24/22 Status: Completed Start: 07-23-2022 End: 07-23-2022 Insulin Lispro Sliding Scale 0-10 Units, Injection-Insulin, SubCutaneous, Start date 07/23/22 21:00:00 EST Start Date: 07/23/22 Stop Date: 07/23/22 Status: Completed Start: 07-22-2022 End: 07-22-2022 Insulin Lispro Sliding Scale 0-10 Units, Injection-Insulin, SubCutaneous, Start date 07/22/22 16:30:00 EST Start Date: 07/22/22 Stop Date: 07/22/22 Status: Completed insulin lispro 1 00 unit/mL injection Inject under the skin 4 times a day. Take as directed per insulin instructions per sliding scale Active Levemir FlexPen (2 sources) Levemir FlexPen 25 units hs Active Levemir FlexTouch (20 sources) Start: 03-21-2016 inject 10 [IU] by subcutaneous injection once daily in the morning Levemir FlexTouch 10 unit(s), SubCutaneous, qAM, Refills(s) 0, Blood glucose Start Date: 03/21/16 Status: Ordered Start: 03-21-2016 inject 15 [IU] by marquez bcutaneous injection once daily Levemir FlexTouch 15 unit(s), SubCutaneous, Daily, Refills(s) 0, Blood glucose Start Date: 03/21/16 Status: Ordered Start: 03-21-2016 inject 18 [IU] by marquez bcutaneous injection twice daily Levemir FlexTouch 18 unit(s), SubCutaneous, BID, Refills(s) 0, Blood glucose Start Date: 03/21/16 Status: Ordered lisinopril 2.5 mg oral tablet (17 sources) Angiotensin Converting Enzyme Inhibitor Start: 11-06-2023 End: 06-29-2024 take 2.5 mg by mouth once daily Lisinopril Active 2.5 MG PO Daily March 08, 2024 12:00am loperamide hydrochloride 2 mg oral tablet (16 sources) Opioid Agonist Start: 11-25-2022 take 1 tablet by mouth every four hours as needed Immodium A-D 2 mg Tab 2 mg = 1 tab(s), Oral, q4hr, PRN for loose stool, # 60 tab(s), Refills(s) 0 Start Date: 11/25/22 Status: Ordered take 1 capsule by [facility] twice daily as needed loperamide (Imodium) 2 mg capsule Take 1 capsule (2 mg) by mouth 2 times a day. As needed Active metroNIDAZOLE 500 mg oral tablet (1 source) Nitroimidazole Antimicrobial Start: 07-24-2022 End: 07-28-2022 take 1 tablet by mouth three times daily Flagyl 500 mg Tab 500 mg = 1 tab(s), Oral, TID, X 4 day(s), # 12 tab(s), Refills(s) 0, Pharmacy: [id number], 160, cm, 07/20/22 22:02:00 EST, Height/Length Dosing, 61.9, kg, 07/20/22 22:02:00 EST, Weight Dosing Start Date: 07/24/22 Stop Date: 07/28/22 Status: Ordered NovoLog FlexPen (20 sources) Start: 03-21-2016 NovoLog FlexPen See Instructions, Only takes at bedtime if sugar is high, sliding scale, Refills(s) 0 Start Date: 03/21/16 Status: Ordered NovoLOG FlexPen (1 source) NovoLOG FlexPen Active sennosides, half-way 8.6 mg oral tablet (10 sources) Start: 02-03-2024 End: 03-06-2024 take 1 tablet by mouth at bedtime senna (SENOKOT) 8.6 MG tablet Take 1 Tablet by mouth at bedtime. 30 Tablet 02/05/2024 Active simvastatin 40 mg oral tablet (20 sources) HMG-CoA Reductase Inhibitor Start: 05-14-2017 take 1 tablet by mouth once daily at bedtime simvastatin 40 mg Tab 40 mg = 1 tab(s), Oral, Once a day (at bedtime) Start Date: 06/24/22 Status: Ordered take 2 tablets by [facility] once daily at bedtime simvastatin (Zocor) 20 mg tablet Take 2 tablets (40 mg) by mouth once daily at bedtime. Active take 1 tablet by chong once daily at bedtime simvastatin (Zocor) 20 mg tablet Take 1 tablet (20 mg) by mouth once daily at bedtime. Active traZODone hydrochloride 50 mg oral tablet (8 sources) Serotonin Reuptake Inhibitor Start: 03-08-2024 take 50 mg by mouth once daily Trazodone Active 50 MG PO Daily March 08, 2024 12:00am vitamin b12 0.5 mg oral tablet (8 sources) Vitamin B12 Start: 02-06-2024 take 2 tablets by mouth once daily vitamin B-12 (CYANOCOBALAMIN) 500 MCG tablet Take 2 Tablets by mouth daily. 30 Tablet 3 02/06/2024 Active Start: 01-31-2024 take 1000 ug by mouth once mabel ly 1,000 mcg, Oral, DAILY, First dose on 01/31/24 at 0900, Until Discontinued Start: 01-30-2024 inject 1 dose by int ramuscular injection once 1,000 mcg, Intramuscular, ONCE, 1 dose, On Fri01/30/24 at 0900 Vitamin D (9 sources) Start: 03-26-2016 Vitamin D 50,000 International_Unit, Oral, Refills(s) 0, Prophylaxis Start Date: 03/26/16 Status: Ordered Vitamin D 1000 intl units (25 mcg) Tab (13 sources) Start: 11-18-2022 take 1 tablet by mouth once daily Vitamin D 1000 intl units (25 mcg) Tab 25 mcg = 1 tab(s), Oral, Daily, Refills(s) 0 Start Date: 11/18/22 Status: Ordered Vitamin D3 1000 UNIT (3 sources) take 1 capsule by mouth once daily Vitamin D3 1000 UNIT 1 capsule Orally Once a day Active warfarin sodium 2 mg oral tablet (20 sources) Vitamin K Antagonist Start: 06-24-2022 warfarin 3 mg Tab mg tab(s), Oral, MonWedFri Start Date: 06/24/22 Status: Ordered Start: 01-26-2020 End: 02-03-2024 take 1-2 tablets by mouth once daily warfarin (Coumadin) 2 mg tablet Indications: Permanent atrial fibrillation (Multi) TAKE 1 TO 2 TABLETS BY MOUTH DAILY or as directed per [facility] 180 tablet 3 12/30/2023 Active Start: 01-26-2020 warfarin 2 mg Tab 3 mg, Oral, MonTuWeThFr, Refills(s) 0 Start Date: 07/22/22 Status: Ordered Warfarin Sodium Active Completed/Discontinued Medications Medication Drug Class(es) Dates Sig (Normalized) Sig (Original) acetaminophen 500 mg oral tablet (9 sources) Start: 02-05-2024 End: 06-29-2024 take 2 tablets by mouth every eight hours acetaminophen (Tylenol) 500 mg tablet Take 2 tablets (1,000 mg) by mouth every 8 hours. 02/05/2024 06/29/2024 Discontinued (Therapy completed) Start: 01-30-2024 take 1000 mg by mout h every eight hours 1,000 mg, Oral, EVERY 8 HOURS, First dose (after last modification) on Fri01/30/24 at 2330, Until Discontinued amLODIPine 5 mg oral tablet (8 sources) Dihydropyridine Calcium Channel Jennifer Start: 04-04-2018 End: 08-28-2022 take 5 mg by mouth once daily Amlodipine Discontinued 5 MG PO Daily April 04, 2018 12:00am August 28, 2022 8:31am calcium chloride 0.0014 meq/ml / potassium chloride 0.004 meq/ml / sodium chloride 0.103 meq/ml / sodium lactate 0.028 meq/ml injectable solution (3 sources) Start: 01-28-2024 End: 01-31-2024 Intravenous, at 50 mL/hr, CONTINUOUS, Starting on Fri01/29/24 at 1800, Until Fri01/31/24 at 0836 Start: 10-11-2022 lactated bowen malik IV soln infusion canagliflozin 100 mg oral tablet (2 sources) Sodium-Glucose Cotransporter 2 Inhibitor Start: 05-02-2024 End: 06-29-2024 take 1 tablet by mouth in the morning Invokana 100 mg Take 1 tablet (100 mg) by mouth early in the morning.. 05/02/2024 06/29/2024 Discontinued (Therapy completed) cefTRIAXone 1000 mg injection (1 source) Cephalosporin Antibacterial Start: 01-28-2024 End: 01-29-2024 1,000 mg, Intravenous, EVERY 24 HOURS ANTIBIOTIC, First dose on Fri01/28/24 at 1500, Until Discontinued cholecalciferol 0.025 mg oral tablet (20 sources) Vitamin D Start: 01-28-2024 take 1000 [IU] by mouth once daily 1,000 Units (25 mcg), Oral, DAILY, First dose on Fri01/28/24 at 0900, Until Discontinued Start: 08-30-2022 take 1 tablet by chong th once daily vitamin D (CHOLECALCIFEROL) 25 MCG (1000 UT) TABS tablet Take 25 mcg by mouth daily 0 08/30/2022 Active Start: 08-30-2022 take 1 tablet by chnog th once daily cholecalciferol 1000 intl units (25 mcg) oral tablet 25 mcg = 1 tab(s), Oral, Daily, # 30 tab(s), Refills(s) 0 Start Date: 08/30/22 Status: Ordered Start: 08-30-2022 take 1 tablet by chong once daily cholecalciferol 1000 intl units (25 mcg) oral tablet 25 mcg = 1 tab(s), Oral, Daily, # 30 tab(s), Refills(s) 0 Start Date: 08/30/22 Status: Ordered Start: 08-28-2022 take 1 capsule by [facility] once daily Cholecalciferol (Vitamin D3) (Vitamin D3) 25 mcg (1,000 unit) Capsule Active 25 MCG PO Daily August 28, 2022 1:00am clobetasol propionate 0.0005 mg/mg topical ointment (1 source) Corticosteroid Start: 09-24-2021 Clobetasol Propionate 0.05 % External Ointment APPLY TO THE AFFECTED AREA(S) TWICE DAILY for 10 days Quantity: 60 Refills: 0 Ordered: 24-Sep-2021 DO Start : 24-Sep-2021 Complete clotrimazole 10 mg/ml vaginal cream (1 source) Azole Antifungal Start: 04-04-2021 Clotrimazole 1 % Vaginal Cream APPLY TO THE AFFECTED AREA(S) externally TWICE DAILY Quantity: 45 Refills: 0 Ordered: 04-Apr-2021 DO Start : 04-Apr-2021 Complete docusate sodium 100 mg oral capsule (1 source) Start: 01-28-2024 End: 01-30-2024 take 100 mg by mouth twice daily 100 mg, Oral, 2 TIMES DAILY, First dose on Fri01/28/24 at 0727, Until Discontinued donepezil hydrochloride 5 mg oral tablet (11 sources) Start: 11-03-2023 End: 02-06-2024 take 1 tablet by mouth at bedtime donepezil (ARICEPT) 5 MG tablet Take 5 mg by mouth at bedtime. 11/03/2023 02/06/2024 Discontinued Start: 06-16-2023 take 1 tablet by [facility] once daily at bedtime donepezil (Aricept) 5 mg tablet Take 1 tablet (5 mg) by mouth once daily at bedtime. 0 06/16/2023 Active furosemide 20 mg oral tablet (20 sources) Loop Diuretic Start: 01-28-2024 20 mg, Oral, E VERY 48 HOURS, First dose on Fri01/28/24 at 0727, Until Discontinued Start: 08-28-2022 take 1 tablet by chong th every other day furosemide (Lasix) 20 mg tablet Indications: Essential hypertension, benign Take 1 tablet (20 mg) by mouth every other day. as directed 45 tablet 3 12/30/2023 Active Start: 01-04-2021 take 1 tablet by chong th once daily Lasix 20 mg Tab 20 mg = 1 tab(s), Oral, Daily Start Date: 06/24/22 Status: Ordered hydrALAZINE hydrochloride 25 mg oral tablet (20 sources) Arteriolar Vasodilator Start: 08-28-2022 End: 03-08-2024 take 25 mg by mouth three times daily Hydralazine Discontinued 25 MG PO Three times daily August 28, 2022 1:00am March 08, 2024 10:14am Start: 05-13-2019 End: 06-27-2023 take 1 tablet by mouth once daily hydrALAZINE 25 mg Tab 25 mg = 1 tab(s), Oral, Daily, High blood pressure Start Date: 05/13/19 Status: Ordered hydrocortisone 25 mg/ml rectal cream (2 sources) Corticosteroid Start: 04-12-2021 Hydrocortisone (Perianal) 2.5 % External Cream APPLY TO THE AFFECTED AREA(S) externally twice daily Quantity: 60 Refills: 0 Ordered: 12-Apr-2021 DO Start : 12-Apr-2021 Complete Start: 04-04-2021 Hydrocortisone 1 % External Cream APPLY TO THE AFFECTED AREA(S) externally twice daily Quantity: 28 Refills: 0 Ordered: 24-Apr-2021 DO Start : 04-Apr-2021 Complete hydrOXYzine pamoate 25 mg oral capsule (5 sources) Antihistamine Start: 09-04-2023 End: 01-28-2024 take 1 capsule by mouth at bedtime hydrOXYzine pamoate (VISTARIL) 25 MG capsule Take 25 mg by mouth at bedtime. 09/04/2023 01/28/2024 Discontinued take 1 tablet by chong th three times daily as needed hydrOXYzine HCL (Atarax) 10 mg tablet Ta ke 1 tablet (10 mg) by mouth 3 times a day. As needed Active 3 ml insulin aspart, human 100 unt/ml pen injector (20 sources) Insulin Analog Start: 01-11-2021 inject 3 [IU] by subcutaneous injection three times daily NovoLOG FlexPen 100 UNIT/ML Subcutaneous Solution Pen-injector INJECT 3 (THREE) UNITS SUBCUTANEOUSLY THREE TIMES DAILY DIRECTED Quantity: 15 Refills: 0 Ordered: 29-May-2021 DO Start : 11-Jan-2021 Active Start: 05-14-2017 End: 04-04-2018 inject 2-4 [IU] by subcutaneous injection before mealtime Insulin Aspart U-100 (Novolog U-100 Insulin Aspart) 100 unit/mL Solution Discontinued 2 - 4 UNIT SUBCUT Before meals May 14, 2017 12:00am April 04, 2018 8:45am 3 ml insulin detemir 100 unt/ml pen injector (20 sources) Insulin Analog Start: 05-30-2017 End: 03-08-2024 Insulin Detemir U-100 (Levemir Flextouch U100 Insulin) 100 unit/mL (3 mL) insulin pen Discontinued 15 UNIT SUBCUT Daily May 30, 2017 9:04am March 08, 2024 10:15am Start: 05-14-2017 End: 05-30-2017 Insulin Detemir U-100 (Levem ir Flextouch U100 Insulin) 100 unit/mL (3 mL) Insulin Pen Discontinued 25 UNIT SUBCUT Daily at bedtime 0 May 14, 2017 2:40pm May 30, 2017 9:04am End: 06-27-2023 Levemir FlexTouch U100 Insul in 100 unit/mL (3 mL) pen Inject 30 units sub-q at bedtime once daily 0 06/27/2023 Discontinued (Med List Cleanup) Levemir FlexPen 100 UNIT/ML as directed Subcutaneous 16 UNITS X2 Active insulin detemir (LEVEMIR) 100 UNIT/ML injection vial Inject 22 Units into the skin daily 0 Active insulin, regular, human 100 unt/ml injectable solution (17 sources) Insulin NovoLIN R 100 UNIT/ML Injection Solution USE DIRECTED. Quantity: 0 Refills: 0 Ordered: 25-May-2021 DO Active iohexol (OMNIPAQUE) 350 MG/ML injection (1 source) Start: 01-28-20 End: 01-28-20 24 take 1 dose intravenously once 75 mL, Intravenous Push, Once at Radiology exam, 1 dose, Starting on Fri01/28/24 at 0328, Until Fri01/28/24 at 0318, Imaging Protocol Orders losartan potassium 25 mg oral tablet (20 sources) Angiotensin 2 Receptor Jennifer Start: 07-31-19 End: 03-08-20 take 25 mg by mouth once daily Losartan Discontinued 25 MG PO Daily August 28, 2022 1:00am March 08, 2024 10:15am Start: 01-01-2021 take 1 tablet by chong th once daily losartan (COZAAR) 50 MG tablet Take 50 mg by mouth daily 0 01/01/2021 Active take 0.5 tablet by m outh once daily Losartan Potassium 50 MG Oral Tablet take 1/2 tablet daily Quantity: 0 Refills: 0 Ordered: 25-May-2021 DO Active melatonin 3 mg oral tablet (17 sources) Start: 01-28-2024 take 3 mg by mouth at bedtime 3 mg, Oral, AT BEDTIME, First dose on Fri01/28/24 at 2200, Until Discontinued Start: 11-12-2022 take 1 capsule by mo wyh once daily at bedtime melatonin 10 mg oral capsule 10 mg = 1 cap(s), Oral, Once a day (at bedtime) Start Date: 11/12/22 Status: Ordered take 1 tablet by mouth at bedtim e Melatonin 10 MG Oral Tablet TAKE 1 TABLET Bedtime Quantity: 0 Refills: 0 Ordered: 24-Dec-2022 DO Active Kp-Ro-Gx8-Xax-Igy-Skby-Lut-Z ea (Ocuvite Adult 50 Plus) 250 mg (90 mg-160 mg) Capsule (8 sources) Start: 08-28-2022 End: 03-08-2024 take 1 capsule by mouth once daily Vk-Yh-Td6-Qvl-Mrx-Vadf-Lut-Giuliana (Ocuvite Adult 50 Plus) 250 mg (90 mg-160 mg) Capsule Discontinued 1 CAP PO Daily August 28, 2022 1:00am March 08, 2024 10:15am Start: 08-28-2022 take 1 capsule by mouth once daily Et-Ru-Fa5-Jvi-Qpv-Wupk-Lut-Giuliana (Ocuvite Adult 50 Plus) 250 mg (90 mg-160 mg) Capsule Active 1 CAP PO Daily August 28, 2022 1:00am Start: 08-28-2022 take 1 capsule by mouth once daily Qa-Ry-Zf4-Trm-Jcc-Uulu-Lut-Giuliana (Ocuvite Adult 50 Plus) 250 mg (90 mg-160 mg) Capsule Active 1 CAP PO Daily August 28, 2022 12:00am Normal consistency supplement (1 source) Start: 01-29-2024 Oral, 3 TIMES DAILY WITH MEALS, First dose on Fri01/29/24 at 0800, Until Discontinued, Normal Consistency Supplement: Boost GC Max-Vanilla nystatin 100 unt/mg topical ointment (1 source) Polyene Antifungal Start: 09-24-2021 Nystatin 961035 UNIT/GM External Ointment APPLY TO THE AFFECTED AREA(S) TWICE DAILY for 7 days Quantity: 30 Refills: 0 Ordered: 16-Nov-2021 DO Start : 24-Sep-2021 Complete olmesartan medoxomil 40 mg oral tablet (8 sources) Angiotensin 2 Receptor Jennifer Start: 05-14-2017 End: 08-28-2022 take 1 tablet by mouth once daily Olmesartan (Benicar) 40 mg Tablet Discontinued 40 MG PO Daily May 14, 2017 12:00am August 28, 2022 8:31am ondansetron 4 mg disintegrating oral tablet (8 sources) Serotonin-3 Receptor Antagonist Start: 01-30-2024 take 4 mg by mouth every six hours as needed 4 mg, Oral, EVERY 6 HOURS PRN, Starting on Fri01/30/24 at 1201, Until Discontinued, Nausea Start: 01-29-2024 End: 01-29-2024 PRN, Starting on Fri01/29/24 at 1610, Until Fri01/29/24 at 1610, Intra Procedure Start: 01-30-2022 take 1 tablet by chong th every eight hours as needed for nausea Zofran 4 mg Tab 4 mg = 1 tab(s), Oral, q8hr, PRN Nausea/Vomiting, # 12 tab(s), Refills(s) 0 Start Date: 01/30/22 Status: Ordered oxyCODONE hydrochloride 5 mg oral tablet (1 source) Opioid Agonist Start: 01-29-2024 End: 01-30-2024 2.5 mg, Oral, EVERY 4 HOURS PRN, Starting on Miesha 01/29/24 at 1439, Until Fri01/30/24 at 1640, Moderate Pain (pain score 4,5,6), Severe Pain (pain score 7,8,9,10) Ozempic 1 mg/dose (4 mg/3 mL) pen injector (4 sources) Start: 09-16-2023 End: 06-29-2024 inject 1 mg by subcutaneous injection every week Ozempic 1 mg/dose (4 mg/3 mL) pen injector Inject 1 mg under the skin 1 (one) time per week. 09/16/2023 06/29/2024 Discontinued (Therapy completed) Start: 09-16-2023 inject 1 mg by subcu taneous injection every week Ozempic 1 mg/dose (4 mg/3 mL) pen injector Inject 1 mg under the skin 1 (one) time per week. 09/16/2023 Active polyethylene glycol 3350 64202 mg powder for oral solution (2 sources) Osmotic Laxative Start: 01-31-2024 17 g, Oral, D AILY, First dose on Fri01/31/24 at 0900, Until Discontinued Start: 07-24-2022 take 17 g by mouth twice daily Miralax 3350 17 gram packet 17 gm, Oral, BID, # 527 gm, Refills(s) 0, Pharmacy: [id number], 160, cm, 07/20/22 22:02:00 EST, Height/Length Dosing, 61.9, kg, 07/20/22 22:02:00 EST, Weight Dosing Start Date: 07/24/22 Status: Ordered pravastatin sodium 40 mg oral tablet (1 source) HMG-CoA Reductase Inhibitor Start: 01-28-2024 take 80 mg by mouth once daily 80 mg, Oral, DAILY, First dose on Fri01/28/24 at 0900, Until Discontinued QUEtiapine 25 mg oral tablet (5 sources) Atypical Antipsychotic Start: 11-10-2023 End: 06-29-2024 take 1 tablet by mouth at bedtime QUEtiapine (SEROQUEL) 25 MG tablet Take 25 mg by mouth at bedtime. 11/10/2023 01/28/2024 Discontinued sulfamethoxazole 800 mg / trimethoprim 160 mg oral tablet (1 source) Dihydrofolate Reductase Inhibitor Antibacterial, Sulfonamide Antimicrobial Start: 01-29-2024 End: 02-02-2024 1 Tablet, Oral, 2 TIMES DAILY, 8 doses, First dose on Miesha 01/29/24 at 1900, Last dose on Fri02/02/24 at 0900 Vit C-Vit Z-Gltmhr-Nnq-Om-3 (Ocuvite) 358-93-7-150 hh-kjbd-jb-mg Capsule (8 sources) Start: 05-14-2017 End: 08-28-2022 take 1 capsule by mouth once daily Vit C-Vit N-Zvizwq-Phf-Om-3 (Ocuvite) 824-16-9-150 rv-qzyv-pv-mg Capsule Discontinued 1 CAP PO Daily May 14, 2017 12:00am August 28, 2022 8:31am Start: 05-14-2017 End: 08-28-2022 take 1 capsule by mouth once daily Vit C-Vit O-Iiwpvj-Nnh-Om-3 (Ocuvite) 243-96-2-150 tg-cfyu-qe-mg Capsule Discontinued 1 CAP PO Daily May 13, 2017 11:00pm August 28, 2022 7:31am Vitamin D CAPS (3 sources) Vitamin D CAPS T MADDY 1 CAPSULE Daily Quantity: 0 Refills: 0 Ordered: 24-Dec-2022 DO Active vitamin e 100 unt oral capsule (8 sources) Start: 03-26-2018 End: 04-04-2018 take 100 [IU] by mouth once daily Vitamin E Discontinued 100 UNIT PO Daily March 26, 2018 12:00am April 04, 2018 8:44am Start: 03-26-2018 End: 04-04-2018 take 100 [IU] by mouth once daily Vitamin E Discontinued 100 UNIT PO Daily March 25, 2018 11:00pm April 04, 2018 7:44am Problems Active Problems Problem Classification Problem Date Documented Da te Episodic/Chronic Acute and unspecified renal failure (1 source) Acute renal failure syndrome; Translations: [Acute kidney failure, unspecified] Onset: 3 Episodic Acute cerebrovascular disease (20 sources) Cerebral infarction, unspecified; Translations: [Cerebrovascular accident] Onset: 8 01-06-2014 Chronic Comment on above: 5 years ago Aortic and peripheral arterial embolism or thrombosis (3 sources) 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; Translations: [Arterial embolism and thrombosis of lower extremity] Chronic Cardiac dysrhythmias (20 sources) Sick sinus syndrome; Translations: [Paroxysmal atrial fibrillation] Onset: 9 Resolved: 2 06-24-2022 Chronic Chronic kidney disease (20 sources) Chronic kidney disease stage 3; Translations: [Chronic kidney disease] Onset: 4 05-13-2019 Chronic Chronic kidney disease (1 source) Chronic kidney disease Onset: 8 Chronic ulcer of skin (19 sources) 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 of skin; Translations: [Chronic ulcer of foot] Onset: 3 Chronic Conduction disorders (20 sources) Atrioventricular block, complete; Translations: [Cardiac pacemaker in situ] Onset: 8 Chronic Coronary atherosclerosis and other heart disease (2 sources) Atherosclerotic heart disease of [place] coronary artery without angina pectoris; Translations: [Disorder of cardiovascular system] Onset: 8 01-28-2024 Chronic Delirium, dementia, and amnestic and other cognitive disorders (5 sources) Dementia; Translations: [Unspecified dementia without behavioral disturbance] Onset: 4 02-06-2024 Chronic Diabetes mellitus with complications (20 sources) Chronic kidney disease due to type 2 diabetes mellitus; Translations: [Type 2 diabetes mellitus with diabetic chronic kidney disease] Onset: 3 Chronic Diabetes mellitus without complication (20 sources) Diabetes mellitus; Translations: [Diabetes mellitus without mention of complication, type II or unspecified type, not stated as uncontrolled] Onset: 4 01-06-2014 Chronic Diabetes mellitus without complication (1 source) Diabetes mellitus without complication Onset: 8 Diseases of white blood cells (1 source) Elevated white blood cell count, unspecified Onset: 8 Chronic Disorders of lipid metabolism (20 sources) Mixed hyperlipidemia; Translations: [Hyperlipidemia] Onset: 5 06-24-2022 Chronic Diverticulosis and diverticulitis (1 source) Diverticula of intestine; Translations: [Diverticulitis of intestine, part unspecified, without perforation or abscess without bleeding] Onset: 3 Chronic E Codes: Fall (8 sources) Fall; Translations: [Unspecified fall, initial encounter] Onset: 3 Episodic Essential hypertension (20 sources) Benign essential hypertension; Translations: [Benign essential hypertension] Onset: 4 01-06-2014 Chronic Fluid and electrolyte disorders (1 source) Hypo-osmolality and or hyponatremia; Translations: [Hypo-osmolality and hyponatremia] Onset: 3 Episodic Gangrene (3 sources) Gangrene of toe of right foot; Translations: [Gangrene, not elsewhere classified] Episodic Genitourinary symptoms and ill-defined conditions (20 sources) Stress incontinence (female) (male); Translations: [Urge incontinence] Onset: 2 Chronic Genitourinary symptoms and ill-defined conditions (6 sources) History of urinary tract infection 06-25-2022 Episodic Heart valve disorders (20 sources) Rheumatic mitral stenosis; Translations: [Mitral valve stenosis] Onset: 8 03-23-2016 Chronic Hypertension with complications and secondary hypertension (20 sources) Hypertensive heart and chronic kidney disease; Translations: [Hypertensive heart and chronic kidney disease without heart failure, with stage 1 through stage 4 chronic kidney disease, or unspecified chronic kidney disease] Onset: 7 06-27-2023 Chronic Intracranial injury (1 source) Hematoma; Translations: [Epidural hematoma (HCC)] 01-28-2024 Episodic Nausea and vomiting (2 sources) Nausea and vomiting; Translations: [Nausea with vomiting, unspecified] Onset: 3 Episodic Nutritional deficiencies (20 sources) Vitamin D deficiency; Translations: [Vitamin D deficiency, unspecified] Onset: 1 06-24-2022 Chronic Occlusion or stenosis of precerebral arteries (9 sources) Bilateral stenosis of carotid arteries; Translations: [Occlusion and stenosis of bilateral carotid arteries] Onset: 4 03-08-2024 Chronic Other circulatory disease (20 sources) Disorder of carotid artery; Translations: [Disorder of arteries and arterioles, unspecified] Onset: 5 06-27-2023 Chronic Other fractures (10 sources) Fracture of odontoid process; Translations: [Anterior displaced Type II dens fracture, initial encounter for closed fracture] Onset: 4 01-28-2024 Episodic Other fractures (15 sources) Closed fracture axis, odontoid process ; Translations: [Unspecified displaced fracture of second cervical vertebra, initial encounter for closed fracture] Onset: 4 01-28-2024 Episodic Other fractures (1 source) Closed fracture of second cervical vertebra; Translations: [Anterior displaced Type II dens fracture, initial encounter for closed fracture] Onset: 4 Episodic Other fractures (1 source) Unspecified displaced fracture of second cervical vertebra, initial encounter for closed fracture; Translations: [Unspecified displaced fracture of second cervical vertebra, initial encounter for closed fracture] Onset: 4 Episodic Other gastrointestinal disorders (3 sources) Diarrhea; Translations: [Diarrhea, unspecified] Onset: 3 Episodic Other gastrointestinal disorders (1 source) H/O: gastrointestinal disease; Translations: [Personal history of other diseases of the digestive system] Onset: 3 Episodic Other gastrointestinal disorders (15 sources) History of diverticulitis 09-26-2022 Episodic Other hereditary and degenerative nervous system conditions (20 sources) Restless legs; Translations: [Restless legs syndrome] Onset: 3 05-13-2019 Chronic Other injuries and conditions due to external causes (1 source) History of fall; Translations: [History of falling] Onset: 3 Episodic Other injuries and conditions due to external causes (1 source) Injury of head; Translations: [Unspecified injury of head, initial encounter] Onset: 4 Episodic Other nutritional; endocrine; and metabolic disorders (1 source) Overweight Onset: 8 Chronic Other nutritional; endocrine; and metabolic disorders (1 source) Obesity; Translations: [Obesity, unspecified] Onset: 3 Chronic Other nutritional; endocrine; and metabolic disorders (12 sources) Body mass index 25-29 - overweight; Translations: [Body Mass Index 29.0-29.9, adult] Episodic Other nutritional; endocrine; and metabolic disorders (17 sources) Overweight in adulthood with body mass index of 25 or more but less than 30; Translations: [Body Mass Index 29.0-29.9, adult] Episodic Other screening for suspected conditions (not mental disorders or infectious disease) (1 source) Electrocardiogram abnormal; Translations: [Abnormal electrocardiogram [ECG] [EKG]] 01-30-2024 Episodic Other skin disorders (20 sources) Lichen sclerosus et atrophicus; Translations: [Lichen sclerosus et atrophicus] Onset: 2 06-24-2022 Chronic Peripheral and visceral atherosclerosis (20 sources) Peripheral vascular disease; Translations: [Arteriosclerotic vascular disease] Onset: 1 02-08-2020 Chronic Residual codes; unclassified (11 sources) Swelling - edema - symptom; Translations: [Edema] Episodic Residual codes; unclassified (1 source) Other specified postprocedural states Episodic Residual codes; unclassified (3 sources) Bilateral lower limb edema; Translations: [Localized edema] 03-08-2024 Episodic Residual codes; unclassified (6 sources) Localized edema; Translations: [Edema] Onset: 4 03-08-2024 Episodic Retinal detachments; defects; vascular occlusion; and retinopathy (20 sources) Degenerative disorder of macula ; Translations: [Unspecified macular degeneration] Onset: 3 02-08-2020 Chronic Septicemia (except in labor) (1 source) Sepsis; Translations: [Sepsis, unspecified organism] Onset: 3 Episodic Superficial injury; contusion (1 source) Contusion of left knee; Translations: [Contusion of left knee, initial encounter] Onset: 3 Episodic Unclassified (1 source) Body mass index (BMI) 27.0-27.9, adult Onset: 8 Unclassified (3 sources) Encntr for checking and test of card pacemaker pulse gnrtr; Translations: [Encntr for checking and test of card pacemaker pulse gnrtr] Onset: 9 Unclassified (3 sources) Encounter for adjust and mgmt oth prt cardiac pacemaker; Translations: [Encounter for adjust and mgmt oth prt cardiac pacemaker] Onset: 8 Unclassified (3 sources) Breakdown (mechanical) of cardiac electrode, init encntr; Translations: [Breakdown (mechanical) of cardiac electrode, init encntr] Onset: 8 Unclassified (2 sources) Breakdown (mechanical) of cardiac electronic device, init; Translations: [Breakdown (mechanical) of cardiac electronic device, init] Onset: 8 Unclassified (1 source) Unsp open wound of left great toe w/o damage to nail, init Onset: 8 Unclassified (1 source) Displacement of cardiac electrode, initial encounter Onset: 8 Unclassified (1 source) 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 Onset: 8 Unclassified (6 sources) Permanent atrial fibrillation; Translations: [Permanent atrial fibrillation] Onset: 3 Past or Other Problems Problem Classification Problem Date Documented Da te Episodic/Chronic Administrative/social admission (20 sources) Follow-up status; Translations: [Other specified counseling] Onset: 06-27-2023 06-27-2023 Episodic Cardiac dysrhythmias (20 sources) AV-junctional (kandi) bradycardia; Translations: [Other specified cardiac dysrhythmias] Resolved: 11-27-2021 Episodic Conditions associated with dizziness or vertigo (20 sources) Dizziness; Translations: [Dizziness and giddiness] Onset: 06-12-2023 06-12-2023 Episodic Deficiency and other anemia (1 source) Anemia, unspecified Onset: 01-21-2018 Episodic Gastrointestinal hemorrhage (4 sources) Melena; Translations: [MELENA] Onset: 09-22-2019 Episodic Malaise and fatigue (20 sources) Malaise and fatigue; Translations: [Other malaise and fatigue] Onset: 03-26-2023 Episodic Other aftercare (1 source) correction (current) use of aspirin Onset: 02-19-2018 Episodic Other lower respiratory disease (20 sources) Nodule of lung; Translations: [Solitary pulmonary nodule] Onset: 06-12-2023 06-12-2023 Episodic Other lower respiratory disease (20 sources) Dyspnea on exertion; Translations: [Shortness of breath] Onset: 06-12-2023 06-12-2023 Episodic Other lower respiratory disease (11 sources) Difficulty breathing; Translations: [Other abnormalities of breathing] Onset: 11-06-2020 06-27-2023 Episodic Other lower respiratory disease (2 sources) Shortness of breath; Translations: [Shortness of breath] Onset: 06-12-2023 Episodic Other nervous system disorders (11 sources) Shuffling gait; Translations: [Other abnormalities of gait and mobility] Onset: 04-03-2022 06-27-2023 Episodic Other nutritional; endocrine; and metabolic disorders (20 sources) Overweight; Translations: [Overweight] Onset: 02-01-2022 06-27-2023 Episodic Residual codes; unclassified (20 sources) Edema; Translations: [Edema] Onset: 06-12-2023 06-12-2023 Episodic Residual codes; unclassified (15 sources) Body mass index 20-24 - normal; Translations: [Body Mass Index between 19-24, adult] Onset: 06-27-2023 06-27-2023 Episodic Residual codes; unclassified (12 sources) Never smoked tobacco; Translations: [Other specified health status] Onset: 06-27-2023 06-27-2023 Episodic Syncope (20 sources) Syncope and collapse; Translations: [Near syncope] Onset: 07-17-2018 Episodic Unclassified (20 sources) Never smoked tobacco; Translations: [Never a smoker] Urinary tract infections (20 sources) Urinary tract infectious disease; Translations: [Urinary tract infection, site not specified] Onset: 01-30-2022 Episodic Results Test Name Value Interpretation Reference Range Facility Cardiac Device Check - Remot caterina 09-29-2024 [facility] Work Phone: Radiology Study observation (narrative) [facility] Work Phone: ECG 12 lead (Clinic Performe d)on 06-29-2024 See scan [facility] Work Phone: [facility] Work Phone: US ankle/arm indiceson 04-10 US ankle/arm indices [facility] [place] [address] Ultrasound Report Signed Patient: Bernardino Guzman MR#: [id number] 9 : 1940 Acct:[id number] Age/Sex: 84 / F ADM Date: 04/09/24 Loc: UL Room: Type: [facility] Attending Dr: Josh Mauro MD Ordering Provider: Josh Mauro MD Date of Service: 04/09/24 US/US ankle/arm indices: I70.213 - Atherosclerosis of [place] arteries of extremiti... Copies to: Josh Mauro MD LOWER EXTREMITY SEGMENTAL ARTERIAL DOPSCAN (PVR) INDICATION: Surveillance study after left popliteal stent placement. PROCEDURE: Right arm blood pressure is 157 , left is 132 . Pressures of the right leg are 83 at the ankle using the posterior tibial artery and cno at the ankle using the dorsalis pedis artery with ankle-brachial index of -NC- 0.53 . Pressures of the left leg are 92 at the ankle using the posterior tibial artery and cno at the ankle using the dorsalis pedis artery with ankle-brachial index of -NC- 0.59 . Wave forms by plethysmography are biphasic, bilaterally. 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 Impression dictated by: Robert Douglas MD04/10/2024 9:44 AM Dictation Location: [place] [address] Tech: Yoli Morgan Transcribed By: RENALDO 04/10/24943 Dictated By: Robert Douglas MD 04/10/2443 Signed By: 04/10/24943 Normal [facility] US venous duplex LE BIon US venous duplex LE BI [facility] Main [place] [address] [place] [place] [address] Ultrasound Report Signed Patient: Bernardino Guzman MR#: [id number] 9 : 1940 Acct:[id number] Age/Sex: 84 / F ADM Date: 04/09/24 Loc: Room: Type: [facility] Attending Dr: Josh Mauro MD Ordering Provider: Josh Mauro MD Date of Service: 04/09/24 US/US venous duplex LE BI: R60.0 - Localized edema Copies to: Josh Mauro MD BILATERAL LOWER EXTREMITY VENOUS DUPLEX INDICATION: Bilateral lower extremity localized edema, pain and tenderness. PROCEDURE: Color-flow duplex scanning is used to interrogate the deep venous system of the right and left lower extremities. The common femoral vein, femoral vein and popliteal vein show good compressibility with normal proximal and distal augmentation. The calf veins are compressible. US/US venous duplex LE BI IMPRESSION: NO EVIDENCE FOR DEEP VEIN THROMBOSIS OR PROXIMAL SUPERFICIAL THROMBOPHLEBITIS IN THE RIGHT OR LEFT LOWER EXTREMITY. There is an anechoic structure identified in the right popliteal fossa measuring 1.9 x 0.7 x 1.6 cm. This may represent a Kaminski's cyst. Impression dictated by: Robert Douglas MD04/10/2024 9:44 AM Dictation Location: [place] [address] Tech: Tika Peres Transcribed By: [facility] 04/10/24943 Dictated By: Robert Douglas MD 04/10/24943 Signed By: 04/10/24943 Normal [facility] Physician [facility] XR C-SPINE AP/LAT/OBLS/ODO 5 VIEWSon 04-01-2024 XR C-SPINE AP/LAT/OBLS/ODO 5 VIEWS EXAMINATION: XR C-SPINE AP/LAT/OBLS/ODO 5 VIEWS 03/31/2024 01:50 PM CLINICAL HISTORY: fx ASSOCIATED DIAGNOSIS: Closed odontoid fracture, initial encounter ([facility]) ORDERING PROVIDER: GUILLERMINA TRONCOSO TECHNKAYDEN NOTE: Best images possible COMPARISON: XR C-SPINE AP/LAT/OBLS/ODO 5 VIEWS 2024, 2:48 PM FINDINGS: On the lateral view the C-spine is visible to the C5 level because of the shoulders. On the AP view, the tip of the dens, C1 and the atlantooccipital joints are not entirely visible because of overlying bone. There is diffuse osseous demineralization. There is mild anterolisthesis of C4 on C5, unchanged. Again seen is a type II odontoid fracture, although the fracture margins are not well visualized on this study. The vertebral bodies appear intact. There is no prevertebral soft tissue swelling. The atlantodental interval is normal. Multilevel degenerative changes are present most prominent at C5-6 and C6-7. IMPRESSION: Degenerative changes of the cervical spine. Known type II odontoid fracture is not well-visualized on this study. MACRO: None Normal [facility] XR Cervical spine 5 Viewson 04-01-2024 EXAMINATION: XR C-SP INE AP/LAT/OBLS/ODO 5 VIEWS 03/31/2024 01:50 PM CLINICAL HISTORY: fx ASSOCIATED DIAGNOSIS: Closed odontoid fracture, initial encounter ([facility]) ORDERING PROVIDER: GUILLERMINA TRONCOSO TECHNOLOGISTS NOTE: Best images possible COMPARISON: XR C-SPINE AP/LAT/OBLS/ODO 5 VIEWS 2024, 2:48 PM FINDINGS: On the lateral view the C-spine is visible to the C5 level because of the shoulders. On the AP view, the tip of the dens, C1 and the atlantooccipital joints are not entirely visible because of overlying bone. There is diffuse osseous demineralization. There is mild anterolisthesis of C4 on C5, unchanged. Again seen is a type II odontoid fracture, although the fracture margins are not well visualized on this study. The vertebral bodies appear intact. There is no prevertebral soft tissue swelling. The atlantodental interval is normal. Multilevel degenerative changes are present most prominent at C5-6 and C6-7. IMPRESSION: Degenerative changes of the cervical spine. Known type II odontoid fracture is not well-visualized on this study. MACRO: None RADIOLOGY Adalberto Moralez M D - 04/01/2024 EXAMINATION: XR C-SPINE AP/LAT/OBLS/ODO 5 VIEWS 03/31/2024 01:50 PM CLINICAL HISTORY: fx ASSOCIATED DIAGNOSIS: Closed odontoid fracture, initial encounter ([facility]) ORDERING PROVIDER: GUILLERMINA TRONCOSO TECHNKAYDEN NOTE: Best images possible COMPARISON: XR C-SPINE AP/LAT/OBLS/ODO 5 VIEWS 2024, 2:48 PM FINDINGS: On the lateral view the C-spine is visible to the C5 level because of the shoulders. On the AP view, the tip of the dens, C1 and the atlantooccipital joints are not entirely visible because of overlying bone. There is diffuse osseous demineralization. There is mild anterolisthesis of C4 on C5, unchanged. Again seen is a type II odontoid fracture, although the fracture margins are not well visualized on this study. The vertebral bodies appear intact. There is no prevertebral soft tissue swelling. The atlantodental interval is normal. Multilevel degenerative changes are present most prominent at C5-6 and C6-7. IMPRESSION: Degenerative changes of the cervical spine. Known type II odontoid fracture is not well-visualized on this study. MACRO: None [facility] XR Cervical spine 5 ViewsOrd ered By: Adalberto Moralez on 04-01-2024 [facility] Work Phone: Progress Noteson 03-31-2024 [employer] History Teacher Authentication Interface Message Text -------- HISTORY OF PRESENT ILLNESS - Hr Generalist: not needed - patient preferred language is Australian. HIPAA: Verbal permission granted from patient to discuss case, including protected health information, in front of family / friends in room at the time of the evaluation. Bernardino Guzman is a very pleasant 84 year old female here for follow-up on her cervical spine fracture. REVIEW OF SYSTEMS The following systems were reviewed and are negative except as noted: Constitutional, Eye, ENT, Cardiovascular, Respiratory, GI, , Musculoskeletal, Skin, Neurologic (No bowel/bladder incontinence, gait instability, or hand dexterity issues), Endocrine, Hematology/Lymphatic and Allergic/Immunologic PAST HISTORY Past Medical History: No past medical history on file. Past Surgical History: There is no previous surgical history on file. Social History: Social History Socioeconomic History Marital status: Tobacco Use Smoking status: Never Smokeless tobacco: Never Social Determinants of Health Food Insecurity: No Food Insecurity (01/29/2024) Hunger Vital Sign Worried About Running Out of Food in the Last Year: Never true Ran Out of Food in the Last Year: Never true Transportation Needs: No Transportation Needs (01/29/2024) PRAPARE - Transportation Lack of Transportation (Medical): No Lack of Transportation (Non-Medical): No Family History: No family history on file. Medications: The patient's home medications have been reviewed. Allergies: Patient has no known allergies. PHYSICAL EXAM Constitutional: Awake AND alert. No distress. Head: Atraumatic. Eyes: No scleral icterus. ENT: Normal external inspection. Airway patent. Neck: Supple. No cervical midline bony tenderness, deformities, or step-offs. Cardiovascular: Equal pulses. Well perfused. Pulmonary/Chest: No respiratory distress. Abdominal: Non-distended. Musculoskeletal: No peripheral edema. Back: No midline bony tenderness, deformities, or step-offs of the thoracic, lumbar, and sacral spine. Skin: Normal color. No abrasions or bruising. No erythema, induration or fluctuance. Neurological: Alert, awake, and appropriate. 5/5 strength bilateral upper and lower extremities. No myelopathic reflexes. No sensory deficits to light touch. DTR's 2+ and equal. Normal gait. +balance issues IMAGING - Imaging reviewed: XR C-SPINE AP/LAT/OBLS/ODO 5 VIEWS 03/31/2024 shows great healing and alignment ASSESSMENT AND PLAN Closed odontoid fracture initial encounter (HCC) Today the patient and I discussed the nature and progression of their condition. She looks great on upright films. We've removed the hard collar and replaced it with a soft collar. I am pleased this is healing nicely as is the patient as she really did not want a surgery'll see her again in 6 weeks with flextion extension views. Please call with any concerns. Return to clinic 6 weeks Patient to return sooner if worsening or if there are any changes. Orders: Orders AND Meds Signed During This Encounter XR C-SPINE AP/LAT/OBLS/ODO 5 VIEWS SCRIBE ATTESTATION 03/31/2024, 9:30 AM. This note is prepared by Dayan Oswald acting as Scribe for Dr. Negrito Maya All medical record entries made by the Scribe were at my direction and personally dictated by me. I have reviewed the record and confirm that the note above accurately reflects all work, treatment, procedures, and medical decision making performed by me. Dr. Negrito Maya. Normal [facility] XR Cervical spine 5 Viewson 03-31-2024 Radiology Study observation (narrative) [facility] US carotid doppler BIon 03-14 US carotid doppler [facility] [address] [place] [address] Ultrasound Report Signed Patient: Bernardino Guzman MR#: [id number] 9 : 1940 Acct:[id number] Age/Sex: 84 / F ADM Date: 03/23/24 Loc: [facility] Room: Type: [facility] Attending Dr: Merline Jackson CHARGING MACHINE OPERATOR-C Ordering Provider: Merline Jackson APRN Date of Service: 03/23/24 US/US carotid doppler BI: I65.23 - Occlusion and stenosis of bilateral carotid emiliano... Copies to: Merline Jackson APRN CAROTID DUPLEX INDICATION: Follow-up known carotid occlusive disease PROCEDURE: Color-flow duplex scanning is used to interrogate the extracranial carotid arterial system, as well as both vertebral arteries. Both carotid bifurcations show mild to moderate heterogeneous plaque formation. The proximal right internal carotid artery shows a highest peak systolic velocity of 217 cm/s with an end-diastolic velocity of 39 cm/s . The mid internal carotid artery measures 172 cm/s peak systolic and 27.1 cm/s end diastolic. The distal segment measures 111 cm/s peak systolic with an end diastolic velocity of 27.4 cm/s . The velocities of the right common carotid artery are 63.9 cm/s peak systolic and 10.8 cm/s end-diastolic proximally and 98.2 cm/s peak systolic and 14.3 cm/s end diastolic distally. The peak systolic velocity ratio of the internal to the common carotid artery is 2.21. The right external carotid artery measures 228 cm/s peak systolic. The right vertebral artery is patent at 66.8 cm/s with antegrade flow. The proximal left internal carotid artery shows a highest peak systolic velocity of 134 cm/s with an end-diastolic velocity of 41.5 cm/s . The mid internal carotid artery measures 172 cm/s peak systolic and 28.6 cm/s end diastolic. The distal segment measures 118 cm/s peak systolic with an end diastolic velocity of 12.4 cm/s . The velocities of the left common carotid artery are 77.6 cm/s peak systolic and 15.2 cm/s end-diastolic proximally and 75.7 cm/s peak systolic and 13.8 cm/s end diastolic distally. The peak systolic velocity ratio of the internal to the common carotid artery is 2.22 . The left external carotid artery measures 310 cm/s peak systolic. The left vertebral artery is patent at 73.2 cm/s with antegrade flow. US/US carotid doppler BI IMPRESSION: Severe plaque formation is noted bilaterally with 50-69% stenosis seen in both extracranial internal carotid arteries. The right is somewhat worse than the left. Both vertebral arteries are patent with antegrade flow. Impression dictated by: Josh Mauro M.D.03/23/2024 1:43 PM Dictation Location: [place] [address] Tech: Yoli Morgan Transcribed By: RENALDO 03/23/24 1343 Dictated By: Josh Mauro MD 03/23/24 1342 Signed By: 03/23/24 134 Normal [facility] Progress Noteson 02-22-2024 [employer] History Teacher Authentication Interface Message Text -------- HISTORY OF PRESENT ILLNESS - Hr Generalist: not needed - patient preferred language is Australian. HIPAA: Verbal permission granted from patient to discuss case, including protected health information, in front of family / friends in room at the time of the evaluation. Bernardino Guzman is a very pleasant 84 year old female here for follow-up for cervical fracture and odontoid fracture on 01/28/2024. She is s/p 6 weeks on a hard collar and is now wearing a soft collar which she will wear for another 6 weeks. According to the family, she does not want to get up and walk around. REVIEW OF SYSTEMS The following systems were reviewed and are negative except as noted: Constitutional, Eye, ENT, Cardiovascular, Respiratory, GI, , Musculoskeletal, Skin, Neurologic (No bowel/bladder incontinence, gait instability, or hand dexterity issues), Endocrine, Hematology/Lymphatic and Allergic/Immunologic PAST HISTORY Past Medical History: No past medical history on file. Past Surgical History: There is no previous surgical history on file. Social History: Social History Socioeconomic History Marital status: Tobacco Use Smoking status: Never Smokeless tobacco: Never Social Determinants of Health Food Insecurity: No Food Insecurity (01/29/2024) Hunger Vital Sign Worried About Running Out of Food in the Last Year: Never true Ran Out of Food in the Last Year: Never true Transportation Needs: No Transportation Needs (01/29/2024) PRAPARE - Transportation Lack of Transportation (Medical): No Lack of Transportation (Non-Medical): No Family History: No family history on file. Medications: The patient's home medications have been reviewed. Allergies: Patient has no known allergies. PHYSICAL EXAM Constitutional: Awake AND alert. No distress. Head: Atraumatic. Eyes: No scleral icterus. ENT: Normal external inspection. Airway patent. Neck: Supple. No cervical midline bony tenderness, deformities, or step-offs. Cardiovascular: Equal pulses. Well perfused. Pulmonary/Chest: No respiratory distress. Abdominal: Non-distended. Musculoskeletal: No peripheral edema. Back: No midline bony tenderness, deformities, or step-offs of the thoracic, lumbar, and sacral spine. Skin: Normal color. No abrasions or bruising. No erythema, induration or fluctuance. Neurological: Alert, awake, and appropriate. 5/5 strength bilateral upper and lower extremities. No myelopathic reflexes. No sensory deficits to light touch. DTR's 2+ and equal. Normal gait. +balance issues IMAGING - Imaging reviewed: XR c spine- stable alignment ASSESSMENT AND PLAN Closed odontoid fracture, initial encounter ([facility]) Today the patient and I discussed the nature and progression of their condition. Pt is s/p 6 weeks on hard collar. We are transitioning her to a soft collar which she will wear for another 6 weeks, afterwards we will treat with flexion/extension films as a caution. Per pt's family, she does not want to ambulate. I discussed with her the importance of physical therapy and aggressive balance training. Please call with any concerns. Return to clinic 6 weeks Patient to return sooner if worsening or if there are any changes. Orders: Orders AND Meds Signed During This Encounter XR C-SPINE AP/LAT/OBLS/ODO 5 VIEWS SCRIBE ATTESTATION 02/22/2024, 5:17 PM. This note is prepared by Charlotte Olmedo acting as Scribe for Dr. Negrito Maya All medical record entries made by the Scribe were at my direction and personally dictated by me. I have reviewed the record and confirm that the note above accurately reflects all work, treatment, procedures, and medical decision making performed by me. Dr. Negrito Maya. Normal [facility] XR C-SPINE AP/LAT/OBLS/ODO 5 VIEWSon 02-19-2024 XR C-SPINE AP/LAT/OBLS/ODO 5 VIEWS EXAMINATION: XR C-SPINE AP/LAT/OBLS/ODO 5 VIEWS 2024 02:48 PM CLINICAL HISTORY: odo fx ASSOCIATED DIAGNOSIS: Closed odontoid fracture, initial encounter ([facility]) ORDERING PROVIDER: GUILLERMINA TRONCOSO TECHNOLOGISTS NOTE: COMPARISON: XR C-SPINE MORE THAN 5 VIEWS 01/29/2024, 2:24 PM FINDINGS: On the lateral view the C-spine is visible to the C7 level. On the AP view, the tip of the dens, C1 and the atlantooccipital joints are not entirely visible because of overlying bone. The known nonunion type II odontoid fracture is not well visible on the current study. The odontoid alignment is unchanged and is anatomical. Mild anterolisthesis of L4 on L5 secondary to facet arthrosis. Moderate narrowing of the C5-C6 and C6-C7 disc space height. Foramina are patent. The vertebral bodies appear intact. There is no prevertebral soft tissue swelling. The atlantodental interval is normal. IMPRESSION: Degenerative changes in the lower cervical spine. MACRO: None Normal [facility] XR Cervical spine 5 Viewson 02-19-2024 EXAMINATION: XR C-SP INE AP/LAT/OBLS/ODO 5 VIEWS 2024 02:48 PM CLINICAL HISTORY: odo fx ASSOCIATED DIAGNOSIS: Closed odontoid fracture, initial encounter ([facility]) ORDERING PROVIDER: GUILLERMINA GUERRA NOTE: COMPARISON: XR C-SPINE MORE THAN 5 VIEWS 01/29/2024, 2:24 PM FINDINGS: On the lateral view the C-spine is visible to the C7 level. On the AP view, the tip of the dens, C1 and the atlantooccipital joints are not entirely visible because of overlying bone. The known nonunion type II odontoid fracture is not well visible on the current study. The odontoid alignment is unchanged and is anatomical. Mild anterolisthesis of L4 on L5 secondary to facet arthrosis. Moderate narrowing of the C5-C6 and C6-C7 disc space height. Foramina are patent. The vertebral bodies appear intact. There is no prevertebral soft tissue swelling. The atlantodental interval is normal. IMPRESSION: Degenerative changes in the lower cervical spine. MACRO: None RADIOLOGY Maynor Patiño MD - 02/19/2024 EXAMINATION: XR C-SPINE AP/LAT/OBLS/ODO 5 VIEWS 2024 02:48 PM CLINICAL HISTORY: odo fx ASSOCIATED DIAGNOSIS: Closed odontoid fracture, initial encounter ([facility]) ORDERING PROVIDER: GUILLERMINA TRONCOSO TECHNKAYDEN NOTE: COMPARISON: XR C-SPINE MORE THAN 5 VIEWS 01/29/2024, 2:24 PM FINDINGS: On the lateral view the C-spine is visible to the C7 level. On the AP view, the tip of the dens, C1 and the atlantooccipital joints are not entirely visible because of overlying bone. The known nonunion type II odontoid fracture is not well visible on the current study. The odontoid alignment is unchanged and is anatomical. Mild anterolisthesis of L4 on L5 secondary to facet arthrosis. Moderate narrowing of the C5-C6 and C6-C7 disc space height. Foramina are patent. The vertebral bodies appear intact. There is no prevertebral soft tissue swelling. The atlantodental interval is normal. IMPRESSION: Degenerative changes in the lower cervical spine. MACRO: None [facility] XR Cervical spine 5 ViewsOrd ered By: Maynor Patiño on 02-19-2024 [facility] Work Phone: Progress Noteson 2024 [employer] History Teacher Authentication Interface Message Text Soft cervical collar dispensed by clinician. Normal [facility] XR Cervical spine 5 Viewson 2024 Radiology Study observation (narrative) [facility] Telephone Encounteron 2023 [employer] History Teacher Authentication Interface Message Text Sil ricci Dtr calls to state ozempic on med list [facility] med [facility] She wants to know how this can be correctedl Not sure if they can see epic Current Outpatient Medications Medication Sig Dispense Refill enoxaparin (LOVENOX) 60 MG/0.6ML injection Inject 0.5 mL under the skin 2 times daily. Continue until INR is therapeutic 10 Each 0 vitamin B-12 (CYANOCOBALAMIN) 500 MCG tablet Take 2 Tablets by mouth daily. 30 Tablet 3 senna (SENOKOT) 8.6 MG tablet Take 1 Tablet by mouth at bedtime. 30 Tablet 0 acetaminophen (TYLENOL) 500 MG tablet Take 2 Tablets by mouth every 8 hours. 30 Tablet 0 citalopram (CeleXA) 20 MG tablet Take 1 Tablet by mouth daily. Cholecalciferol (Vitamin D3) 25 MCG (1000 UT) CAPS Take 25 mcg by mouth daily. diltiazem (Dilt-XR) 120 MG XR capsule Take 120 mg by mouth at bedtime. donepezil (ARICEPT) 5 MG tablet Take 5 mg by mouth at bedtime. furosemide (LASIX) 20 MG tablet Take 20 mg by mouth every other day. lisinopril (ZESTRIL) 2.5 MG tablet Take 2.5 mg by mouth daily. simvastatin (ZOCOR) 40 MG tablet Take 40 mg by mouth daily. at bedtime warfarin (COUMADIN) 2 MG tablet Take 2 mg by mouth daily. No current facility-administered medications for this visit. Discontinue aricept as pt was bradycardic and losing wt Discontiue ozempic as pt lost too much wt on this Continue celexa 20mg/d Christin Camara, MSN, WALLPAPER SCRAPER, WESTERN PHILOSOPHY PROFESSOR Adult/Geriatric Nurse Practitioner [facility] [address] [phone] pager: [phone] Normal [facility] Discharge Planning Noteon [employer] History Teacher Authentication Interface Message Text CASE MANAGEMENT/SOCIAL WORK SNF DC NOTE: Pt has been cleared for transfer to SNF on this date Pt will be transferred to [place] via [facility] ([id number]) at 1633 Nursing report may be called to [phone] Support person notified: [place] at [phone] Patient/Family, team aware of above and agreeable. For discharge, please ensure the following is completed: MD to place DC order, reconcile meds, and print narcotics to go with patient to SNF [facility] to print Discharge Summary, [place], Summary of Care, Narcotic Scripts, and Signature Page and place in a packet to be given to trailer driver If transport/discharge needs to be adjusted/cancelled, team (MD/RN) to cancel transport, update support person, and update receiving facility. Normal [facility] GLUCOSE, FINGERSTICK-IN OFFI CEon 02-05-2024 Glucose [Mass/Vol] 94 mg/dL 80 - 116 mg/dL [facility] Interpretation and review of laboratory results [facility] Glucose [Mass/Vol] 94 mg/dL Normal 80-116 [facility] Comment on above: Performed By: #### C BC #### [facility] [address] [place] [address], Glucose [Mass/Vol] 217 mg/dL High 80 - 116 mg/dL [facility] Interpretation and review of laboratory results Abnormal [facility] Glucose [Mass/Vol] 217 mg/dL High 80-116 [facility] Comment on above: Performed By: #### A PTT, PT, NAYA #### [facility] [address] [place] [address], Glucose [Mass/Vol] 144 mg/dL High 80 - 116 mg/dL [facility] Interpretation and review of laboratory results Abnormal [facility] Glucose [Mass/Vol] 144 mg/dL High 80-116 [facility] Comment on above: Performed By: #### 8 2948 #### NURSING GLUCOSE PROGRAM [address] [place], [address] PROTHROMBIN TIME AND INRon 0 02-05-2024 INR Coag (PPP) [Relative time] 1.25 {INR} High 0.90 - 1.10 [facility] Interpretation and review of laboratory results Abnormal [facility] PT Coag (PPP) [Time] 14.0 s High [facility] INR Coag (PPP) [Relative time] 1.25 {INR} High 0.90-1.10 [facility] Comment on above: Performed By: #### C BC #### [facility] [address], [place], PT Coag (PPP) [Time] 14.0 s High 9.7-12.9 [facility] Comment on above: Performed By: #### C BC #### [facility] [address], [place], Progress Noteson 02-05-2024 [employer] History Teacher Authentication Interface Message Text Patient discharged to [place] [facility] via [facility]. PICC removed. Follow up appointment scheduled and recommended. Patient took all belongings with her. Normal [facility] [employer] History Teacher Authentication Interface Message Text ----- Attestation signed by Iesha Gold MD at 02/05/2024 4:41 PM (Updated) Supervisory Physician Note: I personally discussed the patient's presentation and plan of care with Corina Vora. I reviewed the patient's vital signs, labs, and imaging. I reviewed and agree with the care plan as listed above. I have personally performed a face to face diagnostic evaluation on this patient today. I have reviewed and agree with the care plan as listed above. History and exam by me shows: Assessment and Plan: 83 yo F s/p ground level fall with Type II dens fracture Continue multimodal pain Continue celexa Appreciate geriatrics assistance INR subtherapeutic today again- start therapeutic lovenox while bridging to coumadin PT/OT- SNF pending - medically cleared, discharging today Home meds: -Continue- statin, lisinopril, lasix, coumadin, diltiazem, Vitamin D -Holding- aricept (trying to taper off OP) Incidentals- severe ICA stenosis- discussed DVT prophylaxis- on therapeutic AC Flanagan- None Diagnosis List Type II dens fracture Atrial fibrillation on AC Coagulopathy due to medication use Demential, mild CAD HTN Type II DM Anxiety Depression ICA stenosis, bilateral Right vertebral artery stenosis Esophageal dysphagia Anorexia/poor appetite ERON, resolved Insomnia HLD Vitamin D deficiency Operative procedures by this team None Split/Shared Documentation I approve the management plan for this patient and take responsibility for the plan as documented. Iesha Gold MD ----- ----- GENERAL INFORMATION ---- TRAUMA FLOOR - STAFF NOTE Patient Name: Bernardino Guzman Admission Date: 01/28/2024 Patient seen and examined on 02/05/24 --- INTERVAL HISTORY/EVENTS - Background: Bernardino Guzman is a 83 year old female w/ pmh significant for A-fib on warfarin, mild dementia, CAD, CVA, HTN, and DM2 brought in by EMS from an outside hospital ([facility]) as a CAT 2 trauma following an unwitnessed fall w/ a daignosis of a Type 2 Dens Fracture. Per EMS, patient was found on floor after being down several hours. ? Head strike, ? LOC (patient amnestic to the event) + AC/AP (ASA AND Plavix) Pt reports having a pacemaker in place but otherwise has no other medical concerns at this time. At baseline, pt uses a walker for ambulation. Per patient's paperwork, during her ED course at [facility], pt did have an episode of emesis for which she got a dose of zofran. INR was therapeutic at 2.85. UA was significant for a UTI and patient was given a dose of IV recephin. CTA Neck was not done prior to transfer. Hospital Course: 01/28/2024: Transfer to [facility] for T2 dens Fx. Admitted to [facility] 01/29/2024 No acute events 01/29 No acute events 01/30 Restarting Warfarin, Tolerating po 01/31 No acute events 02/01: Medically cleared for discharge to SNF. 02/02: Held Warfarin. Medically cleared. 02/03: No acute issues. Med clear 24 Hour Events: Eager to go to SNF. Denies pain on exam. No numbness and tingling. Passing flatus. Report BM yesterday. Vital Signs reviewed. Afebrile, Normotensive. Nontachyardic. Saturating 100% on RA. No new Labs. INR 1.25 PHYSICAL EXAM Vital Signs: Vital sign ranges over the past 24 hours (retrieved 02/05/2024 at 2:49 PM): Tmax (24 hours): 97.9 ???F (36.6 ???C) Pulse Av Min: 78 Max: 85 Systolic (24hrs), Av , Min:99 , Max:144 Diastolic (24hrs), Av, Min:40, Max:60 MAP (mmHg) Av mmHg Min: 51 mmHg Max: 87 mmHg Resp Av Min: 16 Max: 18 SpO2 Av % Min: 100 % Max: 100 % PHYSICAL EXAM GENERAL: Laying in bed NEURO: A AND Ox3, motor and neuro intact HEENT: Normocephalic, atraumatic CARDIOVASCULAR: RRR. nontachycardic PULMONARY: CTAB on RA ABDOMINAL: S/ND/NT EXTREMITIES: No edema, FERRER spontaneously SKIN: warm and dry LABORATORY RESULTS (LAST 24 HOURS) CBC/PT/INR 02/05/2024 12:43 AM INR 1.25 Basic Metabolic Panel No lab values to display. Fingerstick Glucose (last 72 hours) (Last 10 results in the past 72 hours) Glucose 02/05/24 1140 217 02/05/24 0916 144 02/04/24 2027 214 02/04/24 1614 130 02/04/24 1140 256 02/04/24 0738 145 02/03/24 2045 161 02/03/24 1645 194 02/03/24 1200 161 02/03/24 0726 119 IMAGING RESULTS (PERSONALLY REVIEWED) All admit imaging and follow up imaging reviewed. No new imaging for review. ------ ASSESSMENT AND PLAN --------- Diagnoses: 1. S/p unwitnessed fall 01/28/2024 (more content not included)... Normal [facility] BASIC METABOLIC PANELon 07-2 Anion gap [Moles/Vol] 11 mmol/L Normal 10-20 [facility] Comment on above: Performed By: #### 8 2948 #### NURSING GLUCOSE PROGRAM [address] [place], [address] Calcium [Mass/Vol] 8.9 mg/dL Normal 8.6-10.3 [facility] Comment on above: Performed By: #### 8 2948 #### NURSING GLUCOSE PROGRAM [address] [place], [address] Chloride [Moles/Vol] 101 mmol/L Normal 98-107 [facility] Comment on above: Performed By: #### 8 2948 #### NURSING GLUCOSE PROGRAM [address] [place], [address] CO2 [Moles/Vol] 28 mmol/L Normal 21-31 [facility] Comment on above: Performed By: #### 8 2948 #### NURSING GLUCOSE PROGRAM [address] [place], [address] Creatinine [Mass/Vol] 1.04 mg/dL Normal 0.60-1.20 [facility] Comment on above: Performed By: #### 8 2948 #### NURSING GLUCOSE PROGRAM [address] [place], [address] ESTIMATED GFR (CKD-EPI) 53 mL/min/1.73sqm Low >=60 [facility] Comment on above: Result Comment: 2020 CKD EPI Equation using Creatinine without Race Comment: Estimated glomerular filtration rate (eGFR) is calculated without a race coefficient. Values should be interpreted in the context of the patient's full clinical presentation. Reference: 1. Alexander Ga, Jm M, Lamin ESPINAL, et al.. A Unifying Approach for GFR Estimation: Recommendations of the NKF-ASN Task Force on Reassessing the Inclusion of Race in Diagnosing Kidney Disease. [place] Journal of Kidney Diseases 2021;79(2):268-88.e1. 2. N Engl J Med 1 Vol. 385 Issue 19 Pages 8529-7933 Performed By: #### 8 2948 #### NURSING GLUCOSE PROGRAM [address] [place], [address] Glucose [Mass/Vol] 150 mg/dL High 74-109 [facility] Comment on above: Performed By: #### 8 2948 #### NURSING GLUCOSE PROGRAM [address] [place], [address] Potassium [Moles/Vol] 4.6 mmol/L Normal 3.5-5.0 [facility] Comment on above: Performed By: #### 8 2948 #### NURSING GLUCOSE PROGRAM [address] [place], [address] Sodium [Moles/Vol] 135 mmol/L Low 136-145 [facility] Comment on above: Performed By: #### 8 2948 #### NURSING GLUCOSE PROGRAM [address] [place], [address] Urea nitrogen [Mass/Vol] 32 mg/dL High 7-25 [facility] Comment on above: Performed By: #### 8 2948 #### NURSING GLUCOSE PROGRAM [address] [place], [address] Basic metabolic 2000 panelon 02-04-2024 Anion gap [Moles/Vol] 11 mmol/L 10 - 20 [facility] Calcium [Mass/Vol] 8.9 mg/dL 8.6 - 10. 3 mg/dL [facility] Chloride [Moles/Vol] 101 mmol/L 98 - 10 7 mmol/L [facility] CO2 [Moles/Vol] 28 mmol/L 21 - 31 mmol/L [facility] Creatinine [Mass/Vol] 1.04 mg/dL 0.60 - 1.20 mg/dL [facility] GFR/1.73 sq M.predicted CKD-EPI (S/P/Bld) [Vol rate/Area] 53 Low - PINF [facility] Comment on above: 2020 CKD EPI Equatio n using Creatinine without Race Comment: Estimated glomerular filtration rate (eGFR) is calculated without a race coefficient. Values should be interpreted in the context of the patient's full clinical presentation. Reference: 1. Alexander C, Jm M, Lamin ESPINAL, et al.. A Unifying Approach for GFR Estimation: Recommendations of the NKF-ASN Task Force on Reassessing the Inclusion of Race in Diagnosing Kidney Disease. [place] Journal of Kidney Diseases 202;79(2):268-88.e1. 2. N Engl J Med 2020 Vol. 385 Issue 19 Pages 7030-9837 Glucose [Mass/Vol] 150 mg/dL High 74 - 109 mg/dL [facility] Interpretation and review of laboratory results Abnormal [facility] Potassium [Moles/Vol] 4.6 mmol/L 3.5 - 5.0 mmol/L [facility] Sodium [Moles/Vol] 135 mmol/L Low 136 - 145 mmol/L [facility] Urea nitrogen [Mass/Vol] 32 mg/dL High 7 - 25 mg/dL [facility] 02-04-2024 [employer] History Teacher Authentication Interface Message Text Adult Inpatient Nutrition Assessment Reason for Visit: 7 day follow up Nutrition Assessment: Admitting Diagnosis: TRAUMA- Fall No past medical history on file. is allergic to: No Known Allergies Nutritionally Significant Meds: vitamin D, lasix, humalog, miralax, senna, vitamin B12, coumadin LR @ 75 cc/hr Labs: Basic Metabolic Panel 02/04/2024 02/03/2024 1:45 AM 1:00 AM Na 135 134 K 4.6 4.4 Cl 101 100 CO2 28 27 Gap 11 11 Glu 150 124 BUN 32 23 Cr 1.04 1.16 Ca 8.9 8.8 CBC (last 3 years, up to 8 values) 02/03/2024 02/01/2024 01/31/2024 01/30/2024 01/29/2024 01/28/2024 1:00 AM 3:08 AM 1:03 AM 12:25 AM 3:43 AM 3:07 AM WBC 10.9 8.7 10.3 10.5 11.7 17.0 RBC 4.19 3.91 4.16 4.26 4.74 4.77 Hgb 11.8 11.0 11.6 12.1 13.4 13.3 Hct 35.8 33.1 35.3 36.2 40.5 40.4 MCV 85 85 85 85 86 85 RDW 15.4 15.4 15.6 14.8 15.6 15.5 Plt 339 285 309 317 344 368 Fingerstick Glucose (last 72 hours) (Last 10 results in the past 72 hours) Glucose 02/04/24 1140 256 02/04/24 0738 145 02/03/24 2045 161 02/03/24 1645 194 02/03/24 1200 161 02/03/24 0726 119 02/02/24 2134 144 02/02/24 1640 216 02/02/24 1138 149 02/02/24 0752 110 Vital sign ranges over the past 24 hours (retrieved 02/04/2024 at 3:42 PM): Tmax (24 hours): 98.2 ???F (36.8 ???C) Pulse Av.7 Min: 8 Max: 97 Systolic (24hrs), Av , Min:109 , Max:152 Diastolic (24hrs), Av, Min:59, Max:73 MAP (mmHg) Av mmHg Min: 81 mmHg Max: 85 mmHg Resp Av Min: 18 Max: 18 SpO2 Av.7 % Min: 99 % Max: 100 % Intake/Output Summary (Last 24 hours) at 02/04/2024 1542 Last data filed at 02/04/2024 1044 Gross per 24 hour Intake 460 ml Output -- Net 460 ml BM: 02/03 Diet Order: dysphagia advanced, Boost GC Max PO intake: 25-50% Height: 5' 4 Weight: 47.6 kg IBW: 55 kg %IBW: 87 BMI: 18.02: Underweight Estimated needs: 6603-3276 kcal/d 30-35 kcal/kg 57-72 g pro/d 1.2-1.5 g pro/kg 1440 cc/d 30 cc/kg Assessment: 83 year old female w/ pmh significant for A-fib on warfarin, mild dementia, CAD, CVA, HTN, and DM2 brought in by EMS from an outside hospital ([facility]) as a CAT 2 trauma following an unwitnessed fall w/ a daignosis of a Type 2 Dens Fracture. Per EMS, patient was found on floor after being down several hours. ? Head strike, ? LOC (patient amnestic to the event) + AC/AP (ASA AND Plavix) Pt reports having a pacemaker in place but otherwise has no other medical concerns at this time. At baseline, pt uses a walker for ambulation. Per patient's paperwork, during her ED course at [facility], pt did have an episode of emesis for which she got a dose of zofran. INR was therapeutic at 2.85. UA was significant for a UTI and patient was given a dose of IV recephin. CTA Neck was not done prior to transfer. Hospital Course: 01/28/2024: Transfer to [facility] for T2 dens Fx. Admitted to [facility] 01/29/2024 No acute events 01/29 No acute events 01/30 Restarting Warfarin, Tolerating po 01/31 No acute events 02/01: Medically cleared for discharge to SNF. At this follow up, Pt is on a dysphagia advanced diet. PO intake remains poor, 25-50% of meals consumed per intake flow sheet. Last BM 02/03, no emesis. BG levels appearing well controlled. Pt receiving Boost GC Max w/ meals, please continue. No new weight to assess, please weigh weekly. See recs below, thank you. Nutrition Interventions: 1. Diet Per HEDIS SPECIALIST recs Continue Boost GC Max TID 2. Continue insulin coverage PRN 3. Weekly weights Will continue to follow Edgar Kim RD, DARELL Personal Pager [phone] Automatic Door Mechanic Pager: [phone] Normal [facility] Discharge Planning Noteon [employer] History Teacher Authentication Interface Message Text CM aware that precert is still pending for patient at the [facility]. CM will continue to follow for discharge. KEM Galeas, information assoc, [facility]-Fri PH: [phone] ([id number]) PH: [phone] (mobile) PH: [phone] (Sat only) Email: [email or web address] Normal [facility] GLUCOSE, FINGERSTICK-IN OFFI CEon 02-04-2024 Glucose [Mass/Vol] 214 mg/dL High 80 - 116 mg/dL [facility] Interpretation and review of laboratory results Abnormal [facility] Glucose [Mass/Vol] 214 mg/dL High 80-116 [facility] Comment on above: Performed By: #### C BC #### [facility] [address] [place] [address], [id number] Glucose [Mass/Vol] 130 mg/dL High 80 - 116 mg/dL [facility] Interpretation and review of laboratory results Abnormal [facility] Glucose [Mass/Vol] 130 mg/dL High 80-116 [facility] Comment on above: Performed By: #### 8 2948 #### NURSING GLUCOSE PROGRAM [address] [place], [address] Glucose [Mass/Vol] 256 mg/dL High 80 - 116 mg/dL [facility] Interpretation and review of laboratory results Abnormal [facility] Glucose [Mass/Vol] 256 mg/dL High 80-116 [facility] Comment on above: Performed By: #### C BC #### [facility] [address] [place], [address] Glucose [Mass/Vol] 145 mg/dL High 80 - 116 mg/dL [facility] Interpretation and review of laboratory results Abnormal [facility] Glucose [Mass/Vol] 145 mg/dL High 80-116 [facility] Comment on above: Performed By: #### 8 2948 #### NURSING GLUCOSE PROGRAM [address] [place], [address] PROTHROMBIN TIME AND INROrde red By: Piotr Bentley on 02-04-2024 INR Coag (PPP) [Relative time] 1.76 {INR} High 0.90 - 1.10 [facility] Interpretation and review of laboratory results Abnormal [facility] PT Coag (PPP) [Time] 19.7 s High [facility] PROTHROMBIN TIME AND INRon 0 02-04-2024 INR Coag (PPP) [Relative time] 1.76 {INR} High 0.90-1.10 [facility] Comment on above: Performed By: #### 8 2948 #### NURSING GLUCOSE PROGRAM [address] [place], [address] PT Coag (PPP) [Time] 19.7 s High 9.7-12.9 [facility] Comment on above: Performed By: #### 8 2948 #### NURSING GLUCOSE PROGRAM [address] [place], [address] Progress Noteson 02-04-2024 [employer] History Teacher Authentication Interface Message Text ----- Attestation signed by Iesha Gold MD at 02/05/2024 8:47 AM Supervisory Physician Note: I personally discussed the patient's presentation and plan of care with Elder Rodgers. I reviewed the patient's vital signs, labs, and imaging. I reviewed and agree with the care plan as listed above. I have personally performed a face to face diagnostic evaluation on this patient today. I have reviewed and agree with the care plan as listed above. History and exam by me shows: Assessment and Plan: 83 yo F s/p ground level fall with Type II dens fracture Continue multimodal pain Continue celexa Appreciate geriatrics assistance INR subtherapeutic today- restart coumadin, if level drops again will need to start lovenox bridge (CHADS 2 Vasc 7 pts) HEDIS SPECIALIST following for dysphagia PT/OT- SNF pending - medically cleared Home meds: -Continue- statin, lisinopril, lasix, coumadin, diltiazem, Vitamin D -Holding- aricept (trying to taper off OP) Incidentals- severe ICA stenosis- discussed DVT prophylaxis- on therapeutic AC Flanagan- None Diagnosis List Type II dens fracture Atrial fibrillation on AC Coagulopathy due to medication use Demential, mild CAD HTN Type II DM Anxiety Depression ICA stenosis, bilateral Right vertebral artery stenosis Esophageal dysphagia Anorexia/poor appetite ERON, resolved Insomnia HLD Vitamin D deficiency Operative procedures by this team None Split/Shared Documentation I approve the management plan for this patient and take responsibility for the plan as documented. Iesha Gold MD ----- ----- GENERAL INFORMATION ---- TRAUMA FLOOR - STAFF NOTE Patient Name: Bernardino Guzman Admission Date: 01/28/2024 Patient seen and examined on 02/04/24 --- INTERVAL HISTORY/EVENTS - Background: Bernardino Guzman is a 83 year old female w/ pmh significant for A-fib on warfarin, mild dementia, CAD, CVA, HTN, and DM2 brought in by EMS from an outside hospital ([facility]) as a CAT 2 trauma following an unwitnessed fall w/ a daignosis of a Type 2 Dens Fracture. Per EMS, patient was found on floor after being down several hours. ? Head strike, ? LOC (patient amnestic to the event) + AC/AP (ASA AND Plavix) Pt reports having a pacemaker in place but otherwise has no other medical concerns at this time. At baseline, pt uses a walker for ambulation. Per patient's paperwork, during her ED course at [facility], pt did have an episode of emesis for which she got a dose of zofran. INR was therapeutic at 2.85. UA was significant for a UTI and patient was given a dose of IV recephin. CTA Neck was not done prior to transfer. Hospital Course: 01/28/2024: Transfer to [facility] for T2 dens Fx. Admitted to [facility] 01/29/2024 No acute events 01/29 No acute events 01/30 Restarting Warfarin, Tolerating po 01/31 No acute events 02/01: Medically cleared for discharge to SNF. 02/02: Held Warfarin. Medically cleared. 24 Hour Events: No acute overnight events. Patient is doing well. Has no acute concerns. Is eating, drinking, and voiding approprietly. She is eager to go to the SNF. Asking to walk to restroom. Vital Signs reviewed. Afebrile, Normotensive. Tachycardia resolved. Saturating >98% on RA. Labs Reviewed: Mild, improved hyponatremia to 135. Mild uptrend in BUN 32(23). INR 1.76. PHYSICAL EXAM Vital Signs: Vital sign ranges over the past 24 hours (retrieved 02/04/2024 at 5:30 PM): Tmax (24 hours): 98.2 ???F (36.8 ???C) Pulse Av.7 Min: 8 Max: 97 Systolic (24hrs), Av , Min:109 , Max:152 Diastolic (24hrs), Av, Min:59, Max:73 MAP (mmHg) Av mmHg Min: 81 mmHg Max: 85 mmHg Resp Av Min: 18 Max: 18 SpO2 Av.7 % Min: 99 % Max: 100 % PHYSICAL EXAM GENERAL: Laying down in bed. HOB elevated. Pleasant. Peaceful. NEURO: Motor and sensation intact to b/L UE and LE. Appropriate speech. No difficulty swallowing. HEENT: Normocephalic, atraumatic CARDIOVASCULAR: RRR, No MRG PULMONARY: CTAB on RA ABDOMINAL: S/ND/NT EXTREMITIES: No edema, FERRER spontaneously SKIN: warm and dry LABORATORY RESULTS (LAST 24 HOURS) CBC/PT/INR 02/04/2024 1:45 AM INR 1.76 Basic Metabolic Panel 02/04/2024 1:45 AM Na 135 K 4.6 Cl 101 CO2 28 Gap 11 Glu 150 BUN 32 Cr 1.04 Ca 8.9 Fingerstick Glucose (last 72 hours) (Last 10 results in the past 72 hours) Glucose 02/04/24 1614 130 02/04/24 1140 256 02/04/24 0738 145 02/03/24 2045 161 02/03/24 1645 194 02/03/24 1200 161 02/03/24 0726 119 02/02/24 2134 144 (more content not included)... Normal [facility] RFA Guidance for placement o f CV catheter in Vein-- W contrast [place] 02-04-2024 Gloria Grigsby MD - 02/04/2024 EXAMINATION: XA PICC W/O PORT INC IMG >5Y/O 01/29/2024 04:39 PM CLINICAL HISTORY: Rad Procedure required: = picc palcement,no IV access ASSOCIATED DIAGNOSIS: ORDERING PROVIDER: ELDER RODGERS TECHNOLOGISTS NOTE: Single lumen PICC, 4.5x39.5 FLUOROSCOPIST: GLORIA GRIGSBY FLUORO TIME: .8 Minutes ATTENDING PHYSICIAN: Gloria Grigsby RESIDENT/FELLOW PHYSICIAN: Chris Lux INFORMED CONSENT: Written informed consent was obtained. The procedure, risks, benefits, and alternatives were discussed. All questions were answered. TIMEOUT: Physician led timeout was conducted documenting correct patient, procedure, site, fire risk, antibiotics and allergies. COMPLICATIONS: None ESTIMATED BLOOD LOSS: Less than 10 mL TECHNIQUE: The patient was positioned supine on the angiography table. The right arm was prepped and draped in usual aseptic fashion. Lidocaine was used for local anesthesia. A 21 ga. micro puncture needle was used to access the right basilic vein, using realtime ultrasound guidance. An ultrasound spot image was obtained. A 0.018 inch access wire was passed through the needle and the needle removed. A peel-away introducer sheath was placed over the wire over its matched dilator and the dilator was removed. A chlorhexidine gluconate-coated catheter was trimmed to an appropriate length and passed through the peel-away sheath. The peel-away was removed. A fluoroscopic spot image was obtained. The catheter was aspirated and flushed with normal saline. The catheter was sutured in place. Sterile dressings were placed. The patient tolerated the procedure well without immediate complication and was transferred from the angiography suite in stable condition. Catheter type: Single lumen 4.5 Maori Final catheter length: 39.5 cm, the catheter was retracted 2 cm as the patient's tachycardia (baseline postoperative procedure was 98-110), then above 110 post procedure and while vomiting. Additional fluoroscopic images were not obtained, due to patient vomiting and unable to remain on the fluoroscopic table. FINDINGS: Ultrasound spot image demonstrates patency of the target vein. Fluoroscopic spot image show the tip of the catheter projecting over the region of the atriocaval junction. IMPRESSION: Technically successful PICC line placement. MACRO: None [facility] RFA Guidance for placement o f CV catheter in Vein-- W contrast IVOrdered By: Gloria Grigsby on 02-04-2024 [facility] Work Phone: BASIC METABOLIC PANELon 01-12 Anion gap [Moles/Vol] 11 mmol/L Normal 10-20 [facility] Comment on above: Performed By: #### A PTT, PT, NAYA #### [facility] [address] [place] [address], Calcium [Mass/Vol] 8.8 mg/dL Normal 8.6-10.3 [facility] Comment on above: Performed By: #### A PTT, PT, NAYA #### [facility] [address] [place] [address], Chloride [Moles/Vol] 100 mmol/L Normal 98-107 [facility] Comment on above: Performed By: #### A PTT, PT, NAYA #### [facility] [address] [place] [address], CO2 [Moles/Vol] 27 mmol/L Normal 21-31 [facility] Comment on above: Performed By: #### A PTT, PT, NAYA #### [facility] [address] [place] [address], Creatinine [Mass/Vol] 1.16 mg/dL Normal 0.60-1.20 [facility] Comment on above: Performed By: #### A PTT, PT, NAYA #### [facility] [address] [place] [address], ESTIMATED GFR (CKD-EPI) 46 mL/min/1.73sqm Low >=60 [facility] Comment on above: Result Comment: 2020 CKD EPI Equation using Creatinine without Race Comment: Estimated glomerular filtration rate (eGFR) is calculated without a race coefficient. Values should be interpreted in the context of the patient's full clinical presentation. Reference: 1. Alexander Ga, Jm M, Lamin ESPINAL, et al.. A Unifying Approach for GFR Estimation: Recommendations of the NKF-ASN Task Force on Reassessing the Inclusion of Race in Diagnosing Kidney Disease. [place] Journal of Kidney Diseases 202;79(2):268-88.e1. 2. N Engl J Med 2020 Vol. 385 Issue 19 Pages 9657-5601 Performed By: #### A PTT, PT, NAYA #### [facility] [address] [place] [address], Glucose [Mass/Vol] 124 mg/dL High 74-109 [facility] Comment on above: Performed By: #### A PTT, PT, NAYA #### S [facility] [address] [place] [address], Potassium [Moles/Vol] 4.4 mmol/L Normal 3.5-5.0 [facility] Comment on above: Performed By: #### A PTT, PT, NAYA #### [facility] [address] [place] [address], Sodium [Moles/Vol] 134 mmol/L Low 136-145 [facility] Comment on above: Performed By: #### A PTT, PT, NAYA #### [facility] [address] [place] [address], Urea nitrogen [Mass/Vol] 23 mg/dL Normal 7-25 [facility] Comment on above: Performed By: #### A PTT, PT, NAYA #### [facility] [address] [place] [address], Basic metabolic 2000 panelon 02-03-2024 Anion gap [Moles/Vol] 11 mmol/L 10 - 20 Met [facility] Calcium [Mass/Vol] 8.8 mg/dL 8.6 - 10. 3 mg/dL [facility] Chloride [Moles/Vol] 100 mmol/L 98 - 10 7 mmol/L [facility] CO2 [Moles/Vol] 27 mmol/L 21 - 31 mmol/L [facility] Creatinine [Mass/Vol] 1.16 mg/dL 0.60 - 1.20 mg/dL [facility] GFR/1.73 sq M.predicted CKD-EPI (S/P/Bld) [Vol rate/Area] 46 Low - PINF [facility] Comment on above: 2020 CKD EPI Equatio n using Creatinine without Race Comment: Estimated glomerular filtration rate (eGFR) is calculated without a race coefficient. Values should be interpreted in the context of the patient's full clinical presentation. Reference: 1. Alexander C, Jm M, Lamin DC, et al.. A Unifying Approach for GFR Estimation: Recommendations of the NKF-ASN Task Force on Reassessing the Inclusion of Race in Diagnosing Kidney Disease. [place] Journal of Kidney Diseases 202;79(2):268-88.e1. 2. N Engl J Med 2020 Vol. 385 Issue 19 Pages 6572-1257 Glucose [Mass/Vol] 124 mg/dL High 74 - 109 mg/dL [facility] Interpretation and review of laboratory results Abnormal [facility] Potassium [Moles/Vol] 4.4 mmol/L 3.5 - 5.0 mmol/L [facility] Sodium [Moles/Vol] 134 mmol/L Low 136 - 145 mmol/L [facility] Urea nitrogen [Mass/Vol] 23 mg/dL 7 - 25 mg/dL [facility] CBC panel Auto (Bld)on 02-02 Erythrocyte distribution width (RBC) [Ratio] 15.4 % High 11.5 - 14.5 % [facility] Hematocrit (Bld) [Volume fraction] 35.8 % Low 36.0 - 46.0 % [facility] Hemoglobin (Bld) [Mass/Vol] 11.8 g/dL Low 12.0 - 15.0 g/dL [facility] Interpretation and review of laboratory results Abnormal [facility] MCH (RBC) [Entitic mass] 28.1 pg 26.0 - 34.0 pg [facility] MCHC (RBC) [Mass/Vol] 33.0 g/dL 32.0 - 35.9 g/dL [facility] MCV (RBC) [Entitic vol] 85 fL 80 - 100 fL [facility] Platelet mean volume (Bld) [Entitic vol] 9.5 fL 7.5 - 11.2 fL [facility] Platelets (Bld) [#/Vol] 339 10*3/uL 150 - 400 K/uL [facility] RBC (Bld) [#/Vol] 4.19 10*6/uL [facility] WBC (Bld) [#/Vol] 10.9 10*3/uL 4.5 - 11.5 K/uL [facility] COMPLETE BLOOD COUNTon 02-02 Erythrocyte distribution width (RBC) [Ratio] 15.4 % High 11.5-14.5 [facility] Comment on above: Performed By: #### 8 [id number] #### NURSING GLUCOSE PROGRAM [address] [place] [address], [id number] Hematocrit (Bld) [Volume fraction] 35.8 % Low 36.0-46.0 [facility] Comment on above: Performed By: #### 8 0088 #### NURSING GLUCOSE PROGRAM [address] [place] [address], [address] Hemoglobin (Bld) [Mass/Vol] 11.8 g/dL Low 12.0-15.0 [facility] Comment on above: Performed By: #### 8 [id number] #### NURSING GLUCOSE PROGRAM [address] [place] [address], [address] MCH (RBC) [Entitic mass] 28.1 pg Normal 26.0-34.0 [facility] Comment on above: Performed By: #### 8 8035 #### NURSING GLUCOSE PROGRAM [address] [place] [address], [address] MCHC (RBC) [Mass/Vol] 33.0 g/dL Normal 32.0-35.9 [facility] Comment on above: Performed By: #### 8 9528 #### NURSING GLUCOSE PROGRAM [address] [place], [address] MCV (RBC) [Entitic vol] 85 fL Normal 80-100 [facility] Comment on above: Performed By: #### 8 2944 #### NURSING GLUCOSE PROGRAM [address] [place] [address], [id number] Platelet mean volume (Bld) [Entitic vol] 9.5 fL Normal 7.5-11.2 [facility] Comment on above: Performed By: #### 8 2948 #### NURSING GLUCOSE PROGRAM [address] [place], [address] Platelets (Bld) [#/Vol] 339 10*3/uL Normal 150-400 [facility] Comment on above: Performed By: #### 8 2948 #### NURSING GLUCOSE PROGRAM [address] [place], [address] RBC (Bld) [#/Vol] 4.19 10*6/uL Normal 4.00-5.20 [facility] Comment on above: Performed By: #### 8 2948 #### NURSING GLUCOSE PROGRAM [address] [place], [address] WBC (Bld) [#/Vol] 10.9 10*3/uL Normal 4.5-11.5 [facility] Comment on above: Performed By: #### 8 [id number] #### NURSING GLUCOSE PROGRAM [address] [place], [address] Discharge Planning Noteon [employer] History Teacher Authentication Interface Message Text CASE MANAGEMENT OT note sent to Myriam at [facility] initiated. 7000 complete. Case management will continue following patient for further discharge needs as warranted. Alicia YINGN RN CMSRN PRN Burial Vault Setter Normal [facility] 12 LEAD - PERFORMon 01-12 Diagnosis Atrial fibrillation Right bundle branch block Left axis deviation Cannot rule out Inferior infarct (masked by fascicular block?) , age undetermined Poor R wave progression Abnormal ECG When compared with ECG of 29-JAN-2024 17:43, Atrial fibrillation has replaced Electronic ventricular pacemaker Confirmed by Milka Hendrickson ([id number]) on 02/03/2024 10:45:43 PM [facility] P wave Atrium by EKG 97 BPM [facility] Q-T interval 390 ms [facility] Q-T interval corrected 464 ms [facility] QRS axis -83 degrees [facility] QRS duration 132 ms [facility] T wave axis -7 degrees [facility] GLUCOSE, FINGERSTICK-IN OFFI CEon 02-03-2024 Glucose [Mass/Vol] 161 mg/dL High 80 - 116 mg/dL [facility] Interpretation and review of laboratory results Abnormal [facility] Glucose [Mass/Vol] 161 mg/dL High 80-116 [facility] Comment on above: Performed By: #### 8 2948 #### NURSING GLUCOSE PROGRAM [address] [place] [address], [id number] Glucose [Mass/Vol] 194 mg/dL High 80 - 116 mg/dL [facility] Interpretation and review of laboratory results Abnormal [facility] Glucose [Mass/Vol] 194 mg/dL High 80-116 [facility] Comment on above: Performed By: #### 8 2948 #### NURSING GLUCOSE PROGRAM [address] [place], [address] Glucose [Mass/Vol] 161 mg/dL High 80-116 [facility] Comment on above: Performed By: #### C BC #### S PATHOLOGY LABORATORY [address] [place] [address], Interpretation and review of laboratory results Abnormal [facility] Glucose [Mass/Vol] 119 mg/dL High 80 - 116 mg/dL [facility] Interpretation and review of laboratory results Abnormal [facility] Glucose [Mass/Vol] 119 mg/dL High 80-116 [facility] Comment on above: Performed By: #### 8 2948 #### NURSING GLUCOSE PROGRAM [address] [place] [address], [address] PROTHROMBIN TIME AND INRon 0 02-03-2024 INR Coag (PPP) [Relative time] 2.74 {INR} High 0.90 - 1.10 [facility] Interpretation and review of laboratory results Abnormal [facility] PT Coag (PPP) [Time] 30.7 s High [facility] INR Coag (PPP) [Relative time] 2.74 {INR} High 0.90-1.10 [facility] Comment on above: Performed By: #### C BC #### S PATHOLOGY LABORATORY [address] [place] [address], PT Coag (PPP) [Time] 30.7 s High 9.7-12.9 [facility] Comment on above: Performed By: #### C BC #### [facility] [address] [place] [address], Progress Noteson 02-03-2024 [employer] History Teacher Authentication Interface Message Text ----- Attestation signed by Iesha Gold MD at 02/03/2024 4:21 PM Supervisory Physician Note: I personally discussed the patient's presentation and plan of care with Elder Rodgers. I reviewed the patient's vital signs, labs, and imaging. I reviewed and agree with the care plan as listed above. I have personally performed a face to face diagnostic evaluation on this patient today. I have reviewed and agree with the care plan as listed above. History and exam by me shows: Assessment and Plan: 83 yo F s/p ground level fall with Type II dens fracture Continue multimodal pain Continue celexa Appreciate geriatrics assistance Continue home warfarin 2 mg every day- will hold evening dose if still here due to rapid rise in INR HEDIS SPECIALIST following for dysphagia PT/OT- SNF pending - medically cleared Slight bump in Cr- check BMP tomorrow, cbc prn Home meds: -Continue- statin, lisinopril, lasix, coumadin, diltiazem, Vitamin D -Holding- aricept (trying to taper off OP) Incidentals- severe ICA stenosis- discussed DVT prophylaxis- on therapeutic AC Flanagan- None Diagnosis List Type II dens fracture Atrial fibrillation on AC Coagulopathy due to medication use Demential, mild CAD HTN Type II DM Anxiety Depression ICA stenosis, bilateral Right vertebral artery stenosis Esophageal dysphagia Anorexia/poor appetite ERON, resolved Insomnia HLD Vitamin D deficiency Operative procedures by this team None Split/Shared Documentation I approve the management plan for this patient and take responsibility for the plan as documented. Iesha Gold MD ----- ----- GENERAL INFORMATION ---- TRAUMA FLOOR - STAFF NOTE Patient Name: Bernardino Guzman Admission Date: 01/28/2024 Patient seen and examined on 02/03/24 --- INTERVAL HISTORY/EVENTS - Background: Bernardino Guzman is a 83 year old female w/ pmh significant for A-fib on warfarin, mild dementia, CAD, CVA, HTN, and DM2 brought in by EMS from an outside hospital ([facility]) as a CAT 2 trauma following an unwitnessed fall w/ a daignosis of a Type 2 Dens Fracture. Per EMS, patient was found on floor after being down several hours. ? Head strike, ? LOC (patient amnestic to the event) + AC/AP (ASA AND Plavix) Pt reports having a pacemaker in place but otherwise has no other medical concerns at this time. At baseline, pt uses a walker for ambulation. Per patient's paperwork, during her ED course at [facility], pt did have an episode of emesis for which she got a dose of zofran. INR was therapeutic at 2.85. UA was significant for a UTI and patient was given a dose of IV recephin. CTA Neck was not done prior to transfer. Hospital Course: 01/28/2024: Transfer to [facility] for T2 dens Fx. Admitted to [facility] 01/29/2024 No acute events 01/29 No acute events 01/30 Restarting Warfarin, Tolerating po 01/31 No acute events 02/01: Medically cleared for discharge to SNF. 24 Hour Events: No acute overnight events. Patient is doing well. Denies pain. Has no acute concerns. Is eating, drinking, and voiding approprietly. Vital Signs reviewed. Afebrile, Normotensive. Tachycardia resolved. Saturating >98% on RA. Labs Reviewed: Mild hyponatremia to 134. INR 2.74. Intake/Output I: x2 meals UOP: x5 Stool: x 2 Last BM recorded: 02/01 PHYSICAL EXAM Vital Signs: Vital sign ranges over the past 24 hours (retrieved 02/03/2024 at 1:18 PM): Tmax (24 hours): 98.6 ???F (37 ???C) Pulse Av.7 Min: 63 Max: 99 Systolic (24hrs), Av , Min:99 , Max:169 Diastolic (24hrs), Av, Min:64, Max:89 MAP (mmHg) Av.8 mmHg Min: 83 mmHg Max: 106 mmHg Resp Av.8 Min: 17 Max: 18 SpO2 Av.8 % Min: 97 % Max: 100 % PHYSICAL EXAM GENERAL: Laying down in bed. HOB elevated. Pleasant. NEURO: Motor and sensation intact to b/L UE and LE. Appropriate speech HEENT: Normocephalic, atraumatic CARDIOVASCULAR: RRR, No MRG PULMONARY: CTAB on RA ABDOMINAL: S/ND/NT EXTREMITIES: No edema, FERRER spontaneously SKIN: warm and dry LABORATORY RESULTS (LAST 24 HOURS) CBC/PT/INR 02/03/2024 02/02/2024 1:00 AM 4:12 PM WBC 10.9 -- RBC 4.19 -- Hgb 11.8 -- Hct 35.8 -- MCV 85 -- RDW 15.4 -- Plt 339 -- INR 2.74 2.32 Basic Metabolic Panel 02/03/2024 1:00 AM Na 134 K 4.4 Cl 100 CO2 27 Gap 11 Glu 124 BUN 23 Cr 1.16 Ca 8.8 Fingerstick Glucose (last 72 hours) (Last 10 results in the past 72 hours) Glucose 02/03/24 1200 161 02/03/24 0726 119 02/02/24 2134 144 02/02/24 1640 216 02/02/24 1138 149 (more content not included)... Normal [facility] Discharge Planning Noteon [employer] History Teacher Authentication Interface Message Text CASE MANAGEMENT [facility] has no available female beds. CM will udpate patient/family and get additional SNF choices. ADDENDUM: CM spoke with patient's daughter Socorro and informed her of above. SNF list emailed to [email or web address]. ADDENDUM: Referral sent to Myriam at [facility] per daughter's request. CM will attach updated PT/OT notes in [facility] once available and request initiation of precert if facility can accept. ADDENDUM: [place] [facility] can accept. CM uploaded today's PT note to [facility]. CM will attach OT note once available. CM requested initiation of precert. Case management will continue following patient for further discharge needs as warranted. Alicia YINGN RN CMSRN PRN Burial Vault Setter Normal [facility] GLUCOSE, FINGERSTICK-IN OFFI CEon 02-02-2024 Glucose [Mass/Vol] 144 mg/dL High 80 - 116 mg/dL [facility] Interpretation and review of laboratory results Abnormal [facility] Glucose [Mass/Vol] 144 mg/dL High 80-116 [facility] Comment on above: Performed By: #### C BC #### S PATHOLOGY LABORATORY [address] [place] [address], Glucose [Mass/Vol] 216 mg/dL High 80 - 116 mg/dL [facility] Interpretation and review of laboratory results Abnormal [facility] Glucose [Mass/Vol] 216 mg/dL High 80-116 [facility] Comment on above: Performed By: #### C BC #### [facility] [address] [place] [address], Glucose [Mass/Vol] 149 mg/dL High 80 - 116 mg/dL [facility] Interpretation and review of laboratory results Abnormal [facility] Glucose [Mass/Vol] 149 mg/dL High 80-116 [facility] Comment on above: Performed By: #### 8 2948 #### NURSING GLUCOSE PROGRAM [address] [place], [place], Glucose [Mass/Vol] 110 mg/dL 80 - 116 mg/dL [facility] Interpretation and review of laboratory results Normal [facility] Glucose [Mass/Vol] 110 mg/dL Normal 80-116 [facility] Comment on above: Performed By: #### C BC #### [facility] [address] [place] [address], PROTHROMBIN TIME AND INRon 0 02-02-2024 INR Coag (PPP) [Relative time] 2.32 {INR} High 0.90 - 1.10 [facility] Interpretation and review of laboratory results Abnormal [facility] PT Coag (PPP) [Time] 26.0 s High [facility] INR Coag (PPP) [Relative time] 2.32 {INR} High 0.90-1.10 [facility] Comment on above: Performed By: #### A PTT, PT, NAYA #### [facility] [address] [place] [address], PT Coag (PPP) [Time] 26.0 s High 9.7-12.9 [facility] Comment on above: Performed By: #### A PTT, PT, NAYA #### [facility] [address] [place] [address], Progress Noteson 02-02-2024 [employer] History Teacher Authentication Interface Message Text ----- Attestation signed by Iesha Gold MD at 02/03/2024 1:40 PM Supervisory Physician Note: I personally discussed the patient's presentation and plan of care with Elder Rodgers. I reviewed the patient's vital signs, labs, and imaging. I reviewed and agree with the care plan as listed above. I have personally performed a face to face diagnostic evaluation on this patient on 02/01 at approximately 0345 pm . I have reviewed and agree with the care plan as listed above. History and exam by me shows: Assessment and Plan: 83 yo F s/p ground level fall with Type II dens fracture Continue multimodal pain Continue celexa Appreciate geriatrics assistance Continue home warfarin 2 mg every day- check INR today if less than 2.0 will need to start heparin bridge HEDIS SPECIALIST following for dysphagia Completed course of Bactrim DS for UTI which was POA PT/OT- SNF pending Home meds: -Continue- statin, lisinopril, lasix, coumadin, diltiazem, Vitamin D -Holding- aricept (trying to taper off OP) Incidentals- severe ICA stenosis- discussed DVT prophylaxis- on therapeutic AC Flanagan- None Diagnosis List Type II dens fracture Atrial fibrillation on AC Coagulopathy due to medication use Demential, mild CAD HTN Type II DM Anxiety Depression ICA stenosis, bilateral Right vertebral artery stenosis Esophageal dysphagia Anorexia/poor appetite ERON, resolved Insomnia HLD Vitamin D deficiency Operative procedures by this team None Split/Shared Documentation I approve the management plan for this patient and take responsibility for the plan as documented. Iesha Gold MD ----- ----- GENERAL INFORMATION ---- TRAUMA FLOOR - STAFF NOTE Patient Name: Bernardino Guzman Admission Date: 01/28/2024 Patient seen and examined on 02/02/24 --- INTERVAL HISTORY/EVENTS - Background: Bernardino Guzman is a 83 year old female w/ pmh significant for A-fib on warfarin, mild dementia, CAD, CVA, HTN, and DM2 brought in by EMS from an outside hospital ([facility]) as a CAT 2 trauma following an unwitnessed fall w/ a daignosis of a Type 2 Dens Fracture. Per EMS, patient was found on floor after being down several hours. ? Head strike, ? LOC (patient amnestic to the event) + AC/AP (ASA AND Plavix) Pt reports having a pacemaker in place but otherwise has no other medical concerns at this time. At baseline, pt uses a walker for ambulation. Per patient's paperwork, during her ED course at [facility], pt did have an episode of emesis for which she got a dose of zofran. INR was therapeutic at 2.85. UA was significant for a UTI and patient was given a dose of IV recephin. CTA Neck was not done prior to transfer. Hospital Course: 01/28/2024: Transfer to [facility] for T2 dens Fx. Admitted to [facility] 01/29/2024 No acute events 01/29 No acute events 01/30 Restarting Warfarin, Tolerating po 01/31 No acute events 24 Hour Events: No acute overnight events. Patient is doing well. Has no acute concerns. She is sleeping peacefully and would like to continue to do so. Labs Reviewed: INR 2.32. Vital Signs reviewed. Afebrile,Normotensive, One episode of tachycardia (113), Saturating >98% on RA. Tmax 36.8 Intake/Output No Is/Os accurately documented Stool: x 3 Last BM recorded: 01/31 PHYSICAL EXAM Vital Signs: Vital sign ranges over the past 24 hours (retrieved 02/02/2024 at 6:13 PM): Tmax (24 hours): 98.4 ???F (36.9 ???C) Pulse Av.5 Min: 83 Max: 113 Systolic (24hrs), Av , Min:114 , Max:152 Diastolic (24hrs), Av, Min:68, Max:89 MAP (mmHg) Av.5 mmHg Min: 85 mmHg Max: 106 mmHg Resp Av.7 Min: 17 Max: 18 SpO2 Av.7 % Min: 98 % Max: 99 % PHYSICAL EXAM GENERAL: Laying down in bed. Sleeping peacefully. Easily awakens to voice. Pleasant. NEURO: Motor and sensation intact to b/L UE and LE. Appropriate speech HEENT: Normocephalic CARDIOVASCULAR: RRR, No MRG PULMONARY: CTAB on RA ABDOMINAL: S/ND/NT EXTREMITIES: No edema, FERRER SKIN: [facility]DI LABORATORY RESULTS (LAST 24 HOURS) CBC/PT/INR 02/02/2024 4:12 PM INR 2.32 Basic Metabolic Panel No lab values to display. Fingerstick Glucose (last 72 hours) (Last 10 results in the past 72 hours) Glucose 02/02/24 1640 216 02/02/24 1138 149 02/02/24 0752 110 02/01/24 2042 192 02/01/24 1648 100 02/01/24 1146 220 Comment: Notified JARED MEDEL MD 02/01/24 0742 131 Comment: Notified JARED MEDEL MD 01/31/24 2106 184 01/31/24 1639 128 01/31/24 1210 162 IMAGING RESULTS (PERSONALLY REVIEWED) ---- (more content not included)... Normal [facility] BASIC METABOLIC PANELon 07 Anion gap [Moles/Vol] 14 mmol/L Normal 10-20 [facility] Comment on above: Performed By: #### 8 2948 #### NURSING GLUCOSE PROGRAM [address] [place], [address] Calcium [Mass/Vol] 8.7 mg/dL Normal 8.6-10.3 [facility] Comment on above: Performed By: #### 8 2948 #### NURSING GLUCOSE PROGRAM [address] [place], [address] Chloride [Moles/Vol] 100 mmol/L Normal 98-107 [facility] Comment on above: Performed By: #### 8 2948 #### NURSING GLUCOSE PROGRAM [address] [place], [address] CO2 [Moles/Vol] 28 mmol/L Normal 21-31 [facility] Comment on above: Performed By: #### 8 2948 #### NURSING GLUCOSE PROGRAM [address] [place], [address] Creatinine [Mass/Vol] 1.08 mg/dL Normal 0.60-1.20 [facility] Comment on above: Performed By: #### 8 2948 #### NURSING GLUCOSE PROGRAM [address] [place], [address] ESTIMATED GFR (CKD-EPI) 51 mL/min/1.73sqm Low >=60 [facility] Comment on above: Result Comment: 2020 CKD EPI Equation using Creatinine without Race Comment: Estimated glomerular filtration rate (eGFR) is calculated without a race coefficient. Values should be interpreted in the context of the patient's full clinical presentation. Reference: 1. Alexander C, Jm M, Lamin ESPINAL, et al.. A Unifying Approach for GFR Estimation: Recommendations of the NKF-ASN Task Force on Reassessing the Inclusion of Race in Diagnosing Kidney Disease. [place] Journal of Kidney Diseases 2021;79(2):268-88.e1. 2. N Engl J Med 1 Vol. 385 Issue 19 Pages 1272-7861 Performed By: #### 8 2948 #### NURSING GLUCOSE PROGRAM [address] [place], [address] Glucose [Mass/Vol] 88 mg/dL Normal 74-109 [facility] Comment on above: Performed By: #### 8 2948 #### NURSING GLUCOSE PROGRAM [address] [place], [address] Potassium [Moles/Vol] 3.5 mmol/L Normal 3.5-5.0 [facility] Comment on above: Performed By: #### 8 2948 #### NURSING GLUCOSE PROGRAM [address] [place], [address] Sodium [Moles/Vol] 138 mmol/L Normal 136-145 [facility] Comment on above: Performed By: #### 8 2948 #### NURSING GLUCOSE PROGRAM [address] [place], [address] Urea nitrogen [Mass/Vol] 16 mg/dL Normal 7-25 [facility] Comment on above: Performed By: #### 8 2948 #### NURSING GLUCOSE PROGRAM [address] [place], [address] Basic metabolic 2000 panelon 02-01-2024 Anion gap [Moles/Vol] 14 mmol/L 10 - 20 [facility] Calcium [Mass/Vol] 8.7 mg/dL 8.6 - 10. 3 mg/dL [facility] Chloride [Moles/Vol] 100 mmol/L 98 - 10 7 mmol/L [facility] CO2 [Moles/Vol] 28 mmol/L 21 - 31 mmol/L [facility] Creatinine [Mass/Vol] 1.08 mg/dL 0.60 - 1.20 mg/dL [facility] GFR/1.73 sq M.predicted CKD-EPI (S/P/Bld) [Vol rate/Area] 51 Low - PINF [facility] Comment on above: 2020 CKD EPI Equatio n using Creatinine without Race Comment: Estimated glomerular filtration rate (eGFR) is calculated without a race coefficient. Values should be interpreted in the context of the patient's full clinical presentation. Reference: 1. Alexander C, Jm M, Lamin DC, et al.. A Unifying Approach for GFR Estimation: Recommendations of the NKF-ASN Task Force on Reassessing the Inclusion of Race in Diagnosing Kidney Disease. [place] Journal of Kidney Diseases 202;79(2):268-88.e1. 2. N Engl J Med 2020 Vol. 385 Issue 19 Pages 3469-8543 Glucose [Mass/Vol] 88 mg/dL 74 - 109 mg/dL [facility] Interpretation and review of laboratory results Abnormal [facility] Potassium [Moles/Vol] 3.5 mmol/L 3.5 - 5.0 mmol/L [facility] Sodium [Moles/Vol] 138 mmol/L 136 - 145 mmol/L [facility] Urea nitrogen [Mass/Vol] 16 mg/dL 7 - 25 mg/dL [facility] CBC panel Auto (Bld)on 01-31 Erythrocyte distribution width (RBC) [Ratio] 15.4 % High 11.5 - 14.5 % [facility] Hematocrit (Bld) [Volume fraction] 33.1 % Low 36.0 - 46.0 % [facility] Hemoglobin (Bld) [Mass/Vol] 11.0 g/dL Low 12.0 - 15.0 g/dL [facility] Interpretation and review of laboratory results Abnormal [facility] MCH (RBC) [Entitic mass] 28.0 pg 26.0 - 34.0 pg [facility] MCHC (RBC) [Mass/Vol] 33.1 g/dL 32.0 - 35.9 g/dL [facility] MCV (RBC) [Entitic vol] 85 fL 80 - 100 fL [facility] Platelet mean volume (Bld) [Entitic vol] 8.7 fL 7.5 - 11.2 fL [facility] Platelets (Bld) [#/Vol] 285 10*3/uL 150 - 400 K/uL [facility] RBC (Bld) [#/Vol] 3.91 10*6/uL Low [facility] WBC (Bld) [#/Vol] 8.7 10*3/uL 4.5 - 11.5 K/uL [facility] COMPLETE BLOOD COUNTon 01-31 Erythrocyte distribution width (RBC) [Ratio] 15.4 % High 11.5-14.5 [facility] Comment on above: Performed By: #### C BC #### S PATHOLOGY LABORATORY [address] [place] [address], Hematocrit (Bld) [Volume fraction] 33.1 % Low 36.0-46.0 [facility] Comment on above: Performed By: #### C BC #### S PATHOLOGY LABORATORY [address] [place] [address], Hemoglobin (Bld) [Mass/Vol] 11.0 g/dL Low 12.0-15.0 [facility] Comment on above: Performed By: #### C BC #### [facility] PATHOLOGY LABORATORY [address] [place] [address], MCH (RBC) [Entitic mass] 28.0 pg Normal 26.0-34.0 [facility] Comment on above: Performed By: #### C BC #### [facility] PATHOLOGY LABORATORY [address] [place] [address], MCHC (RBC) [Mass/Vol] 33.1 g/dL Normal 32.0-35.9 [facility] [facility] Comment on above: Performed By: #### C BC #### [facility] [address] [place] [address], MCV (RBC) [Entitic vol] 85 fL Normal 80-100 [facility] Comment on above: Performed By: #### C BC #### [facility] [address] [place] [address], Platelet mean volume (Bld) [Entitic vol] 8.7 fL Normal 7.5-11.2 [facility] Comment on above: Performed By: #### C BC #### [facility] [address] [place] [address], Platelets (Bld) [#/Vol] 285 10*3/uL Normal 150-400 [facility] Comment on above: Performed By: #### C BC #### [facility] [address] [place] [address], RBC (Bld) [#/Vol] 3.91 10*6/uL Low 4.00-5.20 [facility] Comment on above: Performed By: #### C BC #### [facility] [address] [place] [address], WBC (Bld) [#/Vol] 8.7 10*3/uL Normal 4.5-11.5 [facility] Comment on above: Performed By: #### C BC #### [facility] [address] [place] [address], GLUCOSE, FINGERSTICK-IN OFFI CEon 02-01-2024 Glucose [Mass/Vol] 192 mg/dL High 80 - 116 mg/dL [facility] Interpretation and review of laboratory results Abnormal [facility] Glucose [Mass/Vol] 192 mg/dL High 80-116 The [facility] Comment on above: Performed By: #### [id number] #### NURSING GLUCOSE PROGRAM [address] [place] [address], Glucose [Mass/Vol] 100 mg/dL 80 - 116 mg/dL [facility] Interpretation and review of laboratory results Normal [facility] Glucose [Mass/Vol] 100 mg/dL Normal 80-116 The [facility] Comment on above: Performed By: #### C BC #### S PATHOLOGY LABORATORY [address] [place] [address], Glucose [Mass/Vol] 220 mg/dL High 80 - 116 mg/dL [facility] Comment on above: Notified JARED MEDEL MD Interpretation and review of laboratory results Abnormal [facility] Glucose [Mass/Vol] 220 mg/dL High 80-116 The [facility] Comment on above: Result Comment: Herminio dillard RN, APN, MD Performed By: #### A PTT, PT, NAYA #### S PATHOLOGY LABORATORY [address] [place] [address], Glucose [Mass/Vol] 131 mg/dL High 80 - 116 mg/dL [facility] Comment on above: Notified JARED MEDEL MD Interpretation and review of laboratory results Abnormal [facility] Glucose [Mass/Vol] 131 mg/dL High 80-116 The [facility] Comment on above: Result Comment: Herminio dillard RN, APN, MD Performed By: #### [id number] #### NURSING GLUCOSE PROGRAM [address] [place] [address], [address] PARTIAL THROMBOPLASTIN TIMEo n 02-01-2024 aPTT Coag (Bld) [Time] 33 s [facility] Interpretation and review of laboratory results Normal [facility] aPTT Coag (Bld) [Time] 33 s Normal 25-37 Th e [facility] Comment on above: Performed By: #### [id number] #### NURSING GLUCOSE PROGRAM [address] [place] [address], [id number] PROTHROMBIN TIME AND INRon 0 02-01-2024 INR Coag (PPP) [Relative time] 1.88 {INR} High 0.90 - 1.10 [facility] Interpretation and review of laboratory results Abnormal [facility] PT Coag (PPP) [Time] 21.0 s High [facility] INR Coag (PPP) [Relative time] 1.88 {INR} High 0.90-1.10 [facility] Comment on above: Performed By: #### 8 [id number] #### NURSING GLUCOSE PROGRAM [address] [place], [address] PT Coag (PPP) [Time] 21.0 s High 9.7-12.9 [facility] Comment on above: Performed By: #### 8 [id number] #### NURSING GLUCOSE PROGRAM [address] [place], [address] Progress Noteson 02-01-2024 [employer] History Teacher Authentication Interface Message Text ----- GENERAL INFORMATION ---- TRAUMA FLOOR - STAFF NOTE Patient Name: Bernardino Guzman Admission Date: 01/28/2024 Patient seen and examined on 02/01/24 --- INTERVAL HISTORY/EVENTS - Background: Bernardino Guzman is a 83 year old female w/ pmh significant for A-fib on warfarin, mild dementia, CAD, CVA, HTN, and DM2 brought in by EMS from an outside hospital ([facility]) as a CAT 2 trauma following an unwitnessed fall w/ a daignosis of a Type 2 Dens Fracture. Per EMS, patient was found on floor after being down several hours. ? Head strike, ? LOC (patient amnestic to the event) + AC/AP (ASA AND Plavix) Pt reports having a pacemaker in place but otherwise has no other medical concerns at this time. At baseline, pt uses a walker for ambulation. Per patient's paperwork, during her ED course at [facility], pt did have an episode of emesis for which she got a dose of zofran. INR was therapeutic at 2.85. UA was significant for a UTI and patient was given a dose of IV recephin. CTA Neck was not done prior to transfer. Hospital Course: 01/28/2024: Transfer to [facility] for T2 dens Fx. Admitted to [facility] 01/29/2024 No acute events 01/29 No acute events 01/30 Restarting Warfarin, Tolerating po 01/31 No acute events 24 Hour Events: Upon examination this am she is sitting up in the chair visiting with malcom. She denies any pain. She is COEUR D'ALENE, denies any chest pain, SOB, nausea or vomiting. Tolerating po Labs Reviewed: No leukocytosis, H/H down trending 11.0/33.1 (11.6/35.3) BUN/CR and all lytes are acceptable. INR 1.88 Vital Signs reviewed. Afebrile,Normotensive, One episode of tachycardia (106), Sats appropriate on room air Tmax 36.8 Intake/Output PO: 410 Total 410 UOP: 6 occurrences not recorded Stool: x 3 Last BM recorded: 01/31 Tubes/Drains PHYSICAL EXAM Vital Signs: Vital sign ranges over the past 24 hours (retrieved 02/01/2024 at 8:04 AM): Tmax (24 hours): 98.2 ???F (36.8 ???C) Pulse Av.3 Min: 91 Max: 106 Systolic (24hrs), Av , Min:132 , Max:141 Diastolic (24hrs), Av, Min:75, Max:79 MAP (mmHg) Av.3 mmHg Min: 93 mmHg Max: 95 mmHg Resp Av.3 Min: 18 Max: 22 SpO2 Av.7 % Min: 97 % Max: 98 % PHYSICAL EXAM GENERAL: NAD sitting up in bed, with aspen collar. pleasant and conversant NEURO: GCS 15, alert and orient HEENT: Normocephalic CARDIOVASCULAR: RRR, No MRG PULMONARY: CTAB on RA ABDOMINAL: S/ND/NT EXTREMITIES: No edema, FERRER SKIN: [facility] RESULTS (LAST 24 HOURS) CBC/PT/INR 02/01/2024 3:08 AM WBC 8.7 RBC 3.91 Hgb 11.0 Hct 33.1 MCV 85 RDW 15.4 Plt 285 aPTT 33 INR 1.88 Basic Metabolic Panel 02/01/2024 3:08 AM Na 138 K 3.5 Cl 100 CO2 28 Gap 14 Glu 88 BUN 16 Cr 1.08 Ca 8.7 Fingerstick Glucose (last 72 hours) (Last 10 results in the past 72 hours) Glucose 02/01/24 0742 131 Comment: Notified JARED MEDEL MD 01/31/24 2106 184 01/31/24 1639 128 01/31/24 1210 162 01/31/24 0820 147 01/30/24 2148 164 01/30/24 1639 188 01/30/24 1200 192 01/30/24 0755 130 01/29/24 1154 188 IMAGING RESULTS (PERSONALLY REVIEWED) All admit imaging and follow up imaging reviewed. No new imaging ------ ASSESSMENT AND PLAN --------- Diagnoses: 1. S/p unwitnessed fall 01/28/2024 2 Type 2 Dens Fx No past medical history on file. Incidental Findings: Reviewed on 01/29/2024 CI. 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 Acute pain d/t trauma, - Continue Tylenol 1000 mg q8h scheduled - Continue Oxycodone 2.5 mg q6h prn moderate-severe pain - Continue Melatonin 3 mg Q hs -Continue home med of Celexa 10 mg Q day - Cardiovascular: Hx of HTN, HLD, pacemaker, A-Fib on warfarin -Continue VS per unit protocol -Continue home med Diltiazem -Continue home med Lasix -Continue home med Lisinopril -Continue home med Pravastatin, consider changing to atorvastatin given ICA stenosis - Continue Warfarin 2 mg today Respiratory: Sats appropriate on oxygen or room air, IS goal is 800 cc - Continue pulmonary toilet, encourage IS - Respiratory 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 Protocol - Maintain O2 Sats > 92% GI/Diet: Tolerating po with no emesis - Continue regular diet dysphagia Advanced solids level 3 with thin liquids - Continue bowel regimen of senna, miralax, prn dulcolax HEDIS SPECIALIST recs -May consider completion of instrumental assessment via MBS to r/o airway invasion vs close clinica (more content not included)... Normal [facility] ANTI FXA-LMW HEPARINon 01-30 LMW Heparin Chromogenic method Qn (PPP) 0.43 IU/mL [facility] The recommended therapeutic range for treatment of thrombosis with Low Molecular Weight Heparin is 0.5 - 1.0 IU/mL The recommended range for VTE prophylaxis with Low Molecular Weight Heparin is 0.2 - 0.4 IU/mL. [facility] ANTI FXA-LMW HEPARIN ASSAY 0.43 IU/mL Normal [facility] Comment on above: Order Comment: The r ecommended therapeutic range for treatment of thrombosis with Low Molecular Weight Heparin is 0.5 - 1.0 IU/mL The recommended range for VTE prophylaxis with Low Molecular Weight Heparin is 0.2 - 0.4 IU/mL. Performed By: #### A PTT, PT, NAYA #### [facility] [address] [place] [address], [id number] BASIC METABOLIC PANELon 07-2 0-2023 Anion gap [Moles/Vol] 12 mmol/L Normal 10-20 [facility] Comment on above: Performed By: #### A PTT, PT, NAYA #### [facility] [address] [place] [address], Calcium [Mass/Vol] 8.6 mg/dL Normal 8.6-10.3 [facility] Comment on above: Performed By: #### A PTT, PT, NAYA #### [facility] [address] [place] [address], Chloride [Moles/Vol] 100 mmol/L Normal 98-107 [facility] Comment on above: Performed By: #### A PTT, PT, NAYA #### [facility] [address] [place] [address], CO2 [Moles/Vol] 29 mmol/L Normal 21-31 [facility] Comment on above: Performed By: #### A PTT, PT, NAYA #### [facility] [address] [place] [address], Creatinine [Mass/Vol] 0.99 mg/dL Normal 0.60-1.20 The [facility] Comment on above: Performed By: #### A PTT, PT, NAYA #### S PATHOLOGY LABORATORY [address] [place] [address], ESTIMATED GFR (CKD-EPI) 56 mL/min/1.73sqm Low >=60 The [facility] Comment on above: Result Comment: 2020 CKD EPI Equation using Creatinine without Race Comment: Estimated glomerular filtration rate (eGFR) is calculated without a race coefficient. Values should be interpreted in the context of the patient's full clinical presentation. Reference: 1. Alexander C, Jm M, Lamin DC, et al.. A Unifying Approach for GFR Estimation: Recommendations of the NKF-ASN Task Force on Reassessing the Inclusion of Race in Diagnosing Kidney Disease. [place] Journal of Kidney Diseases 202;79(2):268-88.e1. 2. N Engl J Med 2021 Vol. 385 Issue 19 Pages 4139-8642 Performed By: #### A PTT, PT, NAYA #### S PATHOLOGY LABORATORY [address], [place], Glucose [Mass/Vol] 106 mg/dL Normal 74-109 [facility] Comment on above: Performed By: #### A PTT, PT, NAYA #### S PATHOLOGY LABORATORY [address], [place], Potassium [Moles/Vol] 3.5 mmol/L Normal 3.5-5.0 [facility] Comment on above: Performed By: #### A PTT, PT, NAYA #### [facility] [address], [place], Sodium [Moles/Vol] 137 mmol/L Normal 136-145 [facility] Comment on above: Performed By: #### A PTT, PT, NAYA #### S PATHOLOGY LABORATORY [address], [place], Urea nitrogen [Mass/Vol] 17 mg/dL Normal 7-25 [facility] Comment on above: Performed By: #### A PTT, PT, NAYA #### [facility] [address], [place], Basic metabolic 2000 panelon 01-31-2024 Anion gap [Moles/Vol] 12 mmol/L 10 - 20 Met [facility] Calcium [Mass/Vol] 8.6 mg/dL 8.6 - 10. 3 mg/dL [facility] Chloride [Moles/Vol] 100 mmol/L 98 - 10 7 mmol/L [facility] CO2 [Moles/Vol] 29 mmol/L 21 - 31 mmol/L [facility] Creatinine [Mass/Vol] 0.99 mg/dL 0.60 - 1.20 mg/dL [facility] GFR/1.73 sq M.predicted CKD-EPI (S/P/Bld) [Vol rate/Area] 56 Low - PINF [facility] Comment on above: 2020 CKD EPI Equatio n using Creatinine without Race Comment: Estimated glomerular filtration rate (eGFR) is calculated without a race coefficient. Values should be interpreted in the context of the patient's full clinical presentation. Reference: 1. Alexander C, Jm M, Lamin DC, et al.. A Unifying Approach for GFR Estimation: Recommendations of the NKF-ASN Task Force on Reassessing the Inclusion of Race in Diagnosing Kidney Disease. [place] Journal of Kidney Diseases 202;79(2):268-88.e1. 2. N Engl J Med 2020 Vol. 385 Issue 19 Pages 0116-1306 Glucose [Mass/Vol] 106 mg/dL 74 - 109 mg/dL [facility] Interpretation and review of laboratory results Abnormal [facility] Potassium [Moles/Vol] 3.5 mmol/L 3.5 - 5.0 mmol/L [facility] Sodium [Moles/Vol] 137 mmol/L 136 - 145 mmol/L [facility] Urea nitrogen [Mass/Vol] 17 mg/dL 7 - 25 mg/dL [facility] CBC panel Auto (Bld)on 01-30 Erythrocyte distribution width (RBC) [Ratio] 15.6 % High 11.5 - 14.5 % [facility] Hematocrit (Bld) [Volume fraction] 35.3 % Low 36.0 - 46.0 % [facility] Hemoglobin (Bld) [Mass/Vol] 11.6 g/dL Low 12.0 - 15.0 g/dL [facility] Interpretation and review of laboratory results Abnormal [facility] MCH (RBC) [Entitic mass] 28.0 pg 26.0 - 34.0 pg [facility] MCHC (RBC) [Mass/Vol] 32.9 g/dL 32.0 - 35.9 g/dL [facility] MCV (RBC) [Entitic vol] 85 fL 80 - 100 fL [facility] Platelet mean volume (Bld) [Entitic vol] 8.9 fL 7.5 - 11.2 fL [facility] Platelets (Bld) [#/Vol] 309 10*3/uL 150 - 400 K/uL [facility] RBC (Bld) [#/Vol] 4.16 10*6/uL [facility] WBC (Bld) [#/Vol] 10.3 10*3/uL 4.5 - 11.5 K/uL [facility] COMPLETE BLOOD COUNTon 01-30 Erythrocyte distribution width (RBC) [Ratio] 15.6 % High 11.5-14.5 [facility] Comment on above: Performed By: #### A PTT, PT, NAYA #### [facility] [address] [facility] [place], [place], Hematocrit (Bld) [Volume fraction] 35.3 % Low 36.0-46.0 [facility] Comment on above: Performed By: #### A PTT, PT, NAYA #### [facility] [address] [place] [address], Hemoglobin (Bld) [Mass/Vol] 11.6 g/dL Low 12.0-15.0 [facility] Comment on above: Performed By: #### A PTT, PT, NAYA #### [facility] [address] [place] [address], MCH (RBC) [Entitic mass] 28.0 pg Normal 26.0-34.0 [facility] Comment on above: Performed By: #### A PTT, PT, NAYA #### [facility] [address] [place] [address], MCHC (RBC) [Mass/Vol] 32.9 g/dL Normal 32.0-35.9 [facility] Comment on above: Performed By: #### A PTT, PT, NAYA #### [facility] [address] [place] [address], MCV (RBC) [Entitic vol] 85 fL Normal 80-100 T he [facility] Comment on above: Performed By: #### A PTT, PT, NAYA #### [facility] [address] [place] [address], Platelet mean volume (Bld) [Entitic vol] 8.9 fL Normal 7.5-11.2 [facility] Comment on above: Performed By: #### A PTT, PT, NAYA #### [facility] [address] [place] [address], Platelets (Bld) [#/Vol] 309 10*3/uL Normal 150-400 [facility] Comment on above: Performed By: #### A PTT, PT, NAYA #### [facility] [address] [place] [address], RBC (Bld) [#/Vol] 4.16 10*6/uL Normal 4.00-5.20 [facility] Comment on above: Performed By: #### A PTT, PT, NAYA #### S PATHOLOGY LABORATORY [address] [place] [address], WBC (Bld) [#/Vol] 10.3 10*3/uL Normal 4.5-11.5 [facility] Comment on above: Performed By: #### A PTT, PT, NAYA #### S PATHOLOGY LABORATORY [address] [place] [address], GLUCOSE, FINGERSTICK-IN OFFI CEon 01-31-2024 Glucose [Mass/Vol] 184 mg/dL High 80 - 116 mg/dL [facility] Interpretation and review of laboratory results Abnormal [facility] Glucose [Mass/Vol] 184 mg/dL High 80-116 [facility] Comment on above: Performed By: #### 8 [id number] #### NURSING GLUCOSE PROGRAM [address] [place] [address], Glucose [Mass/Vol] 128 mg/dL High 80 - 116 mg/dL [facility] Interpretation and review of laboratory results Abnormal [facility] Glucose [Mass/Vol] 128 mg/dL High 80-116 [facility] Comment on above: Performed By: #### A PTT, PT, NAYA #### S PATHOLOGY LABORATORY [address] [place] [address], Glucose [Mass/Vol] 162 mg/dL High 80 - 116 mg/dL [facility] Interpretation and review of laboratory results Abnormal [facility] Glucose [Mass/Vol] 162 mg/dL High 80-116 [facility] Comment on above: Performed By: #### A PTT, PT, NAYA #### [facility] [address] [place] [address], Glucose [Mass/Vol] 147 mg/dL High 80 - 116 mg/dL [facility] Interpretation and review of laboratory results Abnormal [facility] Glucose [Mass/Vol] 147 mg/dL High 80-116 [facility] Comment on above: Performed By: #### A PTT, PT, NAYA #### S PATHOLOGY LABORATORY [address] [place] [address], No Panel Informationon 01-30 Interpretation and review of laboratory results Abnormal [facility] PARTIAL THROMBOPLASTIN TIMEo n 01-31-2024 aPTT Coag (Bld) [Time] 39 s High [facility] aPTT Coag (Bld) [Time] 39 s High 25-37 [facility] Comment on above: Performed By: #### A PTT, PT, NAYA #### [facility] [address], [place], PROTHROMBIN TIME AND INRon 0 01-31-2024 INR Coag (PPP) [Relative time] 2.13 {INR} High 0.90 - 1.10 [facility] PT Coag (PPP) [Time] 23.9 s High [facility] INR Coag (PPP) [Relative time] 2.13 {INR} High 0.90-1.10 [facility] Comment on above: Performed By: #### A PTT, PT, NAYA #### [facility] [address], [place], PT Coag (PPP) [Time] 23.9 s High 9.7-12.9 [facility] Comment on above: Performed By: #### A PTT, PT, NAYA #### [facility] [address], [place], Progress Noteson 01-31-2024 [employer] 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 Per EMS, patient was found on floor after being down several hours. ? Head strike, ? LOC (patient amnestic to the event) + AC/AP (ASA AND Plavix) Pt reports having a pacemaker in place but otherwise has no other medical concerns at this time. At baseline, pt uses a walker for ambulation. Per patient's paperwork, during her ED course at [facility], pt did have an episode of emesis for which she got a dose of zofran. INR was therapeutic at 2.85. UA was significant for a UTI and patient was given a dose of IV recephin. CTA Neck was not done prior to transfer. Hospital Course: 01/28/2024: Transfer to [facility] for T2 dens Fx. Admitted to [facility] 01/29/2024 No acute events 01/29 No acute events 01/30 Restarting Warfarin, Tolerating po 24 Hour Events: Upon examination this am she is sitting up in the chair. She denies any pain. She is COEUR D'ALENE, denies any chest pain, SOB, nausea or vomiting. Tolerating po Labs Reviewed: No leukocytosis, H/H down trending 11.6/35.3 (12.1/36.2) BUN/CR and all lytes are acceptable. Vital Signs reviewed. Afebrile,Normotensive, No tachycardia, Sats appropriate on room air Tmax 37.1 Intake/Output PO: 60 IV 1235 Total:1295 UOP: 4 occurrences not recorded Stool: x 2 Last BM recorded: 01/29 Tubes/Drains PHYSICAL EXAM Vital Signs: Vital sign ranges over the past 24 hours (retrieved 01/31/2024 at 8:32 AM): Tmax (24 hours): 98.8 ???F (37.1 ???C) Pulse Av Min: 54 Max: 98 Systolic (24hrs), Av , Min:104 , Max:131 Diastolic (24hrs), Av, Min:39, Max:73 MAP (mmHg) Av mmHg Min: 59 mmHg Max: 87 mmHg Resp Av.8 Min: 14 Max: 18 SpO2 Av.5 % Min: 97 % Max: 99 % PHYSICAL EXAM GENERAL: NAD sitting up in bed, with aspen collar. pleasant and conversant NEURO: GCS 15, alert and orient HEENT: Normocephalic CARDIOVASCULAR: RRR, No MRG PULMONARY: CTAB on RA ABDOMINAL: S/ND/NT EXTREMITIES: No edema, FERRER SKIN: [facility] RESULTS (LAST 24 HOURS) CBC/PT/INR 01/31/2024 1:03 AM WBC 10.3 RBC 4.16 Hgb 11.6 Hct 35.3 MCV 85 RDW 15.6 Plt 309 aPTT 39 INR 2.13 Basic Metabolic Panel 01/31/2024 1:03 AM Na 137 K 3.5 Cl 100 CO2 29 Gap 12 Glu 106 BUN 17 Cr 0.99 Ca 8.6 Fingerstick Glucose (last 72 hours) (Last 10 results in the past 72 hours) Glucose 01/31/24 0820 147 01/30/24 2148 164 01/30/24 1639 188 01/30/24 1200 192 01/30/24 0755 130 01/29/24 1154 188 01/29/24 0757 108 01/28/24 2045 147 01/28/24 1530 121 01/28/24 1138 108 IMAGING RESULTS (PERSONALLY REVIEWED) All admit imaging and follow up imaging reviewed. No new imaging ------ ASSESSMENT AND PLAN --------- Diagnoses: 1. S/p unwitnessed fall 01/28/2024 2 Type 2 Dens Fx No past medical history on file. Incidental Findings: Reviewed on 01/29/2024 CI. Not yet discussed. 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 Acute pain d/t trauma, - Continue Tylenol 1000 mg q8h scheduled - Continue Oxycodone 2.5 mg q6h prn moderate-severe pain - Continue Melatonin 3 mg Q hs -Continue home med of Celexa 10 mg Q day - Cardiovascular: Hx of HTN, HLD, pacemaker, A-Fib on warfarin -Continue VS per unit protocol -Continue home med Diltiazem -Continue home med Lasix -Continue home med Lisinopril -Continue home med Pravastatin, consider changing to atorvastatin given ICA stenosis -Restarting Warfarin 2 mg today Respiratory: Sats appropriate on oxygen or room air, IS goal is 800 cc - Continue pulmonary toilet, encourage IS - Respiratory 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 Protocol - Maintain O2 Sats > 92% GI/Diet: Post prandial emesis likely Related to oxycodone administration, No emesis in > 24 hours - Continue regular diet dysphagia Advanced solids level 3 with thin liquids - Continue bowel regimen of senna, miralax, prn dulcolax HEDIS SPECIALIST recs -May consider completion of instrumental assessment via MBS to r/o airway invasion vs close clinical monitoring of pulmonary status - S (more content not included)... Normal [facility] BASIC METABOLIC PANELon 07- Anion gap [Moles/Vol] 11 mmol/L Normal 10-20 [facility] Comment on above: Performed By: #### A PTT, PT, NAYA #### [facility] [address] [place] [address], [id number] Calcium [Mass/Vol] 8.7 mg/dL Normal 8.6-10.3 [facility] Comment on above: Performed By: #### A PTT, PT, NAYA #### S PATHOLOGY LABORATORY [address], [place], Chloride [Moles/Vol] 100 mmol/L Normal 98-107 The [facility] Comment on above: Performed By: #### A PTT, PT, NAYA #### [facility] [address], [place], CO2 [Moles/Vol] 30 mmol/L Normal 21-31 [facility] Comment on above: Performed By: #### A PTT, PT, NAYA #### S PATHOLOGY LABORATORY [address], [place], Creatinine [Mass/Vol] 1.04 mg/dL Normal 0.60-1.20 [facility] Comment on above: Performed By: #### A PTT, PT, NAYA #### S PATHOLOGY LABORATORY [address], [place], ESTIMATED GFR (CKD-EPI) 53 mL/min/1.73sqm Low >=60 [facility] Comment on above: Result Comment: 2020 CKD EPI Equation using Creatinine without Race Comment: Estimated glomerular filtration rate (eGFR) is calculated without a race coefficient. Values should be interpreted in the context of the patient's full clinical presentation. Reference: 1. Alexander C, Jm M, Lamin ESPINAL, et al.. A Unifying Approach for GFR Estimation: Recommendations of the NKF-ASN Task Force on Reassessing the Inclusion of Race in Diagnosing Kidney Disease. [place] Journal of Kidney Diseases 2021;79(2):268-88.e1. 2. N Engl J Med 2020 Vol. 385 Issue 19 Pages 6889-5435 Performed By: #### A PTT, PT, NAYA #### S [facility] LABORAT[facility] [address], [place], Glucose [Mass/Vol] 136 mg/dL High 74-109 [facility] Comment on above: Performed By: #### A PTT, PT, NAYA #### [facility] [address], [place], Potassium [Moles/Vol] 3.5 mmol/L Normal 3.5-5.0 [facility] Comment on above: Performed By: #### A PTT, PT, NAYA #### [facility] [address], [place], Sodium [Moles/Vol] 137 mmol/L Normal 136-145 [facility] Comment on above: Performed By: #### A PTT, PT, NAYA #### [facility] [address], [place], Urea nitrogen [Mass/Vol] 25 mg/dL Normal 7-25 [facility] Comment on above: Performed By: #### A PTT, PT, NAYA #### [facility] [address], [place], Basic metabolic 2000 panelon 01-30-2024 Anion gap [Moles/Vol] 11 mmol/L 10 - 20 [facility] Calcium [Mass/Vol] 8.7 mg/dL 8.6 - 10. 3 mg/dL [facility] Chloride [Moles/Vol] 100 mmol/L 98 - 10 7 mmol/L [facility] CO2 [Moles/Vol] 30 mmol/L 21 - 31 mmol/L [facility] Creatinine [Mass/Vol] 1.04 mg/dL 0.60 - 1.20 mg/dL [facility] GFR/1.73 sq M.predicted CKD-EPI (S/P/Bld) [Vol rate/Area] 53 Low - PINF [facility] Comment on above: 2020 CKD EPI Equatio n using Creatinine without Race Comment: Estimated glomerular filtration rate (eGFR) is calculated without a race coefficient. Values should be interpreted in the context of the patient's full clinical presentation. Reference: 1. Alexander C, Jm M, Lamin ESPINAL, et al.. A Unifying Approach for GFR Estimation: Recommendations of the NKF-ASN Task Force on Reassessing the Inclusion of Race in Diagnosing Kidney Disease. [place] Journal of Kidney Diseases 202;79(2):268-88.e1. 2. N Engl J Med 2020 Vol. 385 Issue 19 Pages 9170-3708 Glucose [Mass/Vol] 136 mg/dL High 74 - 109 mg/dL [facility] Interpretation and review of laboratory results Abnormal [facility] Potassium [Moles/Vol] 3.5 mmol/L 3.5 - 5.0 mmol/L [facility] Sodium [Moles/Vol] 137 mmol/L 136 - 145 mmol/L [facility] Urea nitrogen [Mass/Vol] 25 mg/dL 7 - 25 mg/dL [facility] CBC panel Auto (Bld)on 01-29 Erythrocyte distribution width (RBC) [Ratio] 14.8 % High 11.5 - 14.5 % [facility] Hematocrit (Bld) [Volume fraction] 36.2 % 36.0 - 46.0 % [facility] Hemoglobin (Bld) [Mass/Vol] 12.1 g/dL 12.0 - 15.0 g/dL [facility] MCH (RBC) [Entitic mass] 28.4 pg 26.0 - 34.0 pg [facility] MCHC (RBC) [Mass/Vol] 33.4 g/dL 32.0 - 35.9 g/dL [facility] MCV (RBC) [Entitic vol] 85 fL 80 - 100 fL [facility] Platelet mean volume (Bld) [Entitic vol] 8.9 fL 7.5 - 11.2 fL [facility] Platelets (Bld) [#/Vol] 317 10*3/uL 150 - 400 K/uL [facility] RBC (Bld) [#/Vol] 4.26 10*6/uL [facility] WBC (Bld) [#/Vol] 10.5 10*3/uL 4.5 - 11.5 K/uL [facility] COMPLETE BLOOD COUNTon 01-29 Erythrocyte distribution width (RBC) [Ratio] 14.8 % High 11.5-14.5 The [facility] Comment on above: Performed By: #### 8 [id number] #### NURSING GLUCOSE PROGRAM [address] [place], [address] Hematocrit (Bld) [Volume fraction] 36.2 % Normal 36.0-46.0 [facility] Comment on above: Performed By: #### 8 2948 #### NURSING GLUCOSE PROGRAM [address] [place], [address] Hemoglobin (Bld) [Mass/Vol] 12.1 g/dL Normal 12.0-15.0 The [facility] Comment on above: Performed By: #### 8 2948 #### NURSING GLUCOSE PROGRAM [address] [place], [address] MCH (RBC) [Entitic mass] 28.4 pg Normal 26.0-34.0 [facility] Comment on above: Performed By: #### 8 2948 #### NURSING GLUCOSE PROGRAM [address] [place], [address] MCHC (RBC) [Mass/Vol] 33.4 g/dL Normal 32.0-35.9 [facility] Comment on above: Performed By: #### 8 2948 #### NURSING GLUCOSE PROGRAM [address] [place], [address] MCV (RBC) [Entitic vol] 85 fL Normal 80-100 T [facility] Comment on above: Performed By: #### 8 [id number] #### NURSING GLUCOSE PROGRAM [address] [place], [address] Platelet mean volume (Bld) [Entitic vol] 8.9 fL Normal 7.5-11.2 [facility] Comment on above: Performed By: #### 8 2948 #### NURSING GLUCOSE PROGRAM [address] [place] [address], [address] Platelets (Bld) [#/Vol] 317 10*3/uL Normal 150-400 [facility] Comment on above: Performed By: #### 8 2948 #### NURSING GLUCOSE PROGRAM [address] [place], [address] RBC (Bld) [#/Vol] 4.26 10*6/uL Normal 4.00-5.20 [facility] Comment on above: Performed By: #### 8 2948 #### NURSING GLUCOSE PROGRAM [address] [place], [address] WBC (Bld) [#/Vol] 10.5 10*3/uL Normal 4.5-11.5 [facility] Comment on above: Performed By: #### 8 2948 #### NURSING GLUCOSE PROGRAM [address] [place], [address] EKG 12 LEAD - PERFORMon 01-11 Diagnosis Atrial fibrillation with rapid ventricular response with occasional ventricular-paced complexes and with premature ventricular or aberrantly conducted complexes Right bundle branch block Left anterior fascicular block Bifascicular block Possible Lateral infarct , age undetermined Abnormal ECG No previous ECGs available Confirmed by TRAN PLATT ([id number]) on 01/30/2024 2:54:11 PM [facility] P wave Atrium by EKG 97 BPM [facility] Q-T interval 364 ms [facility] Q-T interval corrected 474 ms [facility] QRS axis -86 degrees [facility] QRS duration 142 ms [facility] T wave axis 9 degrees [facility] GLUCOSE, FINGERSTICK-IN OFFI CEon 01-30-2024 Glucose [Mass/Vol] 164 mg/dL High 80 - 116 mg/dL [facility] Interpretation and review of laboratory results Abnormal [facility] Glucose [Mass/Vol] 164 mg/dL High 80-116 The [facility] Comment on above: Performed By: #### 8 2948 ####NURSING GLUCOSE [id number] [place], [address] Glucose [Mass/Vol] 188 mg/dL High 80 - 116 mg/dL [facility] Interpretation and review of laboratory results Abnormal [facility] Glucose [Mass/Vol] 188 mg/dL High 80-116 The [facility] Comment on above: Performed By: #### 8 2948 #### NURSING GLUCOSE PROGRAM [address] [place], [address] Glucose [Mass/Vol] 192 mg/dL High 80-116 [facility] Comment on above: Performed By: #### A PTT, PT, NAYA #### [facility] [address] [place] [address], [phone] Interpretation and review of laboratory results Abnormal [facility] Glucose [Mass/Vol] 130 mg/dL High 80 - 116 mg/dL [facility] Interpretation and review of laboratory results Abnormal [facility] Glucose [Mass/Vol] 130 mg/dL High 80-116 The [facility] Comment on above: Performed By: #### 8 2948 #### NURSING GLUCOSE PROGRAM [address] [place], [address] No Panel Informationon 01-29 Interpretation and review of laboratory results Abnormal [facility] Interpretation and review of laboratory results Abnormal [facility] PARTIAL THROMBOPLASTIN TIMEo n 01-30-2024 aPTT Coag (Bld) [Time] 44 s High [facility] aPTT Coag (Bld) [Time] 44 s High 25-37 Th e [facility] Comment on above: Performed By: #### A PTT, PT, NAYA #### S PATHOLOGY LABORATORY [address] [place] [address], PROTHROMBIN TIME AND INRon 0 01-30-2024 INR Coag (PPP) [Relative time] 2.60 {INR} High 0.90 - 1.10 [facility] PT Coag (PPP) [Time] 29.1 s High [facility] INR Coag (PPP) [Relative time] 2.60 {INR} High 0.90-1.10 [facility] Comment on above: Performed By: #### A PTT, PT, NAYA #### S [facility] LABORAT[facility] [address] [place] [address], PT Coag (PPP) [Time] 29.1 s High 9.7-12.9 [facility] Comment on above: Performed By: #### A PTT, PT, NAYA #### S PATHOLOGY LABORATORY [address] [place] [address], Progress Noteson 01-30-2024 [employer] Teacher Authentication Interface Message Text 01/30/24 1300 Vital Signs Heart Rate 54 WALLPAPER SCRAPER Brian made aware of above. Normal [facility] [employer] Teacher Authentication Interface Message Text ----- GENERAL INFORMATION ---- TRAUMA FLOOR - STAFF NOTE Patient Name: Bernardino Guzman Admission Date: 01/28/2024 Patient seen and examined on 01/30/24 --- INTERVAL HISTORY/EVENTS - Background: Bernardino Guzman is a 83 year old female w/ pmh significant for A-fib on warfarin, mild dementia, CAD, CVA, HTN, and DM2 brought in by EMS from an outside hospital ([facility]) as a CAT 2 trauma following an unwitnessed fall w/ a daignosis of a Type 2 Dens Fracture. Per EMS, patient was found on floor after being down several hours. ? Head strike, ? LOC (patient amnestic to the event) + AC/AP (ASA AND Plavix) Pt reports having a pacemaker in place but otherwise has no other medical concerns at this time. At baseline, pt uses a walker for ambulation. Per patient's paperwork, during her ED course at [facility], pt did have an episode of emesis for which she got a dose of zofran. INR was therapeutic at 2.85. UA was significant for a UTI and patient was given a dose of IV recephin. CTA Neck was not done prior to transfer. Hospital Course: 01/28/2024: Transfer to [facility] for T2 dens Fx. Admitted to [facility] 01/29/2024 No acute events 24 Hour Events: This is my first time meeting this patient who is lying in bed with family at bedside. She is [employer] [place], denies any chest pain, SOB, nausea or vomiting. Was nauseated yesterday, tolerating clear liquids today, Labs Reviewed: No leukocytosis, H/H stable, Vital Signs reviewed. Afebrile,Normotensive, No tachycardia, Sats appropriate on Tmax 37.1 Intake/Output PO: 290 IV 45 Total:333 UOP: 300 Stool: x 1 Last BM recorded: 01/29 Tubes/Drains PHYSICAL EXAM Vital Signs: Vital sign ranges over the past 24 hours (retrieved 01/30/2024 at 9:29 AM): Tmax (24 hours): 98.8 ???F (37.1 ???C) Pulse Av.2 Min: 85 Max: 115 Systolic (24hrs), Av , Min:120 , Max:156 Diastolic (24hrs), Av, Min:64, Max:85 MAP (mmHg) Av.3 mmHg Min: 83 mmHg Max: 101 mmHg Resp Av.8 Min: 18 Max: 20 SpO2 Av.3 % Min: 98 % Max: 99 % PHYSICAL EXAM GENERAL: NAD lying in bed, pleasant and conversant NEURO: GCS 15, alert and orient HEENT: Normocephalic CARDIOVASCULAR: RRR, No MRG PULMONARY: CTAB on RA ABDOMINAL: S/ND/NT EXTREMITIES: No edema, FERRER SKIN: [facility] LABORATORY RESULTS (LAST 24 HOURS) CBC/PT/INR 01/30/2024 12:25 AM WBC 10.5 RBC 4.26 Hgb 12.1 Hct 36.2 MCV 85 RDW 14.8 Plt 317 aPTT 44 INR 2.60 Basic Metabolic Panel 01/30/2024 12:25 AM Na 137 K 3.5 Cl 100 CO2 30 Gap 11 Glu 136 BUN 25 Cr 1.04 Ca 8.7 Fingerstick Glucose (last 72 hours) Glucose 01/30/24 0755 130 01/29/24 1154 188 01/29/24 0757 108 01/28/24 2045 147 01/28/24 1530 121 01/28/24 1138 108 01/28/24 0811 123 IMAGING RESULTS (PERSONALLY REVIEWED) All admit imaging and follow up imaging reviewed. No new imaging ------ ASSESSMENT AND PLAN --------- Diagnoses: 1. S/p unwitnessed fall 01/28/2024 2 Type 2 Dens Fx No past medical history on file. Incidental Findings: Reviewed on 01/29/2024 CI. Not yet discussed. 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 Acute pain d/t trauma, - Continue Tylenol 1000 mg q8h scheduled - Continue Oxycodone 2.5 mg q6h prn moderate-severe pain - Continue Melatonin 3 mg Q hs -Continue home med of Celexa 10 mg Q day - Cardiovascular: Hx of HTN, HLD, pacemaker, A-Fib on warfarin -Continue VS per unit protocol -Continue home med Diltiazem -Continue home med Lasix -Continue home med Lisinopril -Continue home med Pravastatin, consider changing to atorvastatin given ICA stenosis -Consider restarting warfarin 01/30 Respiratory: Sats appropriate on oxygen or room air, IS goal is 800 cc - Continue pulmonary toilet, encourage IS - Respiratory 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 Protocol - Maintain O2 Sats > 92% GI/Diet: Post prandial emesis Related to oxy, No emesis in 12 hours - Continue regular diet dysphagia Advanced solids level 3 with thin liquids - Continue bowel regimen of senna, miralax, prn dulcolax HEDIS SPECIALIST recs -May consider completion of instrumental assessment via MBS to r/o airway invasion vs close clinical monitoring of pulmonary status - Suggest considering GI workup for suspected esophageal dysphagia given h/o post prandial emesis - Dysphagia Advanced solids-Level 3 and Thin Liquids - Should patient exhibit pocketing or high volumes of oral residuals, please make the appropriate luisana (more content not included)... Normal [facility] TSHon 01-30-2024 Interpretation and review of laboratory results Normal [facility] TSH Qn 1.148 m[IU]/L [facility] Comment on above: Referance range for women as applicable: First Trimester: 0. 050 to 3.700 uIU/mL Second Trimester: 0. 310 to 4.350 uIU/mL Third Trimester: 0. 410 to 5.180 uIU/mL [facility] TSH 1.148 uIU/mL Normal 0.450-5.33 0 [facility] Comment on above: Result Comment: Refe saul range for women as applicable: First Trimester: 0. 050 to 3.700 uIU/mL Second Trimester: 0. 310 to 4.350 uIU/mL Third Trimester: 0. 410 to 5.180 uIU/mL Performed By: #### A PTT, PT, NAYA #### S PATHOLOGY LABORATORY [address] [place] [address], VITAMIN B12 (CYANOCOBALAMIN) on 01-30-2024 Cobalamin (Vitamin B12) [Moles/Vol] 228 pg/mL 180 - 914 pg/mL [facility] Comment on above: Note Updated Referen ce Range. Interpretation and review of laboratory results Normal [facility] Deficient: <= 145 pg /mL Insufficient: 145 - 180 pg/mL Sufficient: 180 - 914 pg/mL [facility] Cobalamin (Vitamin B12) [Mass/Vol] 228 pg/mL Normal 180-914 [facility] Comment on above: Order Comment: Defic ient: <= 145 pg/mLInsufficient: 145 - 180 pg/mLSufficient: 180 - 914 pg/mL Result Comment: Note Updated Reference Range. Performed By: #### A PTT, PT, NAYA #### [facility] [address] [place] [address], BASIC METABOLIC PANELon 01-11 Anion gap [Moles/Vol] 15 mmol/L Normal 10-20 [facility] Comment on above: Performed By: #### A PTT, PT, NAYA #### [facility] [address] [place] [address], Calcium [Mass/Vol] 8.7 mg/dL Normal 8.6-10.3 [facility] Comment on above: Performed By: #### A PTT, PT, ANYA #### S PATHOLOGY LABORATORY [address] [place] [address], Chloride [Moles/Vol] 102 mmol/L Normal 98-107 [facility] Comment on above: Performed By: #### A PTT, PT, NAYA #### S PATHOLOGY LABORATORY [address] [place] [address], CO2 [Moles/Vol] 28 mmol/L Normal 21-31 [facility] Comment on above: Performed By: #### A PTT, PT, NAYA #### [facility] [address] [place] [address], Creatinine [Mass/Vol] 0.95 mg/dL Normal 0.60-1.20 [facility] Comment on above: Performed By: #### A PTT, PT, NAYA #### S PATHOLOGY LABORATORY [address] [place] [address], ESTIMATED GFR (CKD-EPI) 59 mL/min/1.73sqm Low >=60 [facility] Comment on above: Result Comment: 2020 CKD EPI Equation using Creatinine without Race Comment: Estimated glomerular filtration rate (eGFR) is calculated without a race coefficient. Values should be interpreted in the context of the patient's full clinical presentation. Reference: 1. Alexander C, Jm M, Lamin ESPINAL, et al.. A Unifying Approach for GFR Estimation: Recommendations of the NKF-ASN Task Force on Reassessing the Inclusion of Race in Diagnosing Kidney Disease. [place] Journal of Kidney Diseases 2021;79(2):268-88.e1. 2. N Engl J Med 1 Vol. 385 Issue 19 Pages [phone] Performed By: #### A PTT, PT, NAYA #### [facility] [address], [place], Glucose [Mass/Vol] 109 mg/dL Normal 74-109 [facility] Comment on above: Performed By: #### A PTT, PT, NAYA #### S PATHOLOGY LABORATORY [address] [place] [address], Potassium [Moles/Vol] 3.7 mmol/L Normal 3.5-5.0 [facility] Comment on above: Performed By: #### A PTT, PT, NYAA #### S PATHOLOGY LABORATORY [address], [place], Sodium [Moles/Vol] 141 mmol/L Normal 136-145 [facility] Comment on above: Performed By: #### A PTT, PT, NAYA #### S PATHOLOGY LABORATORY [address] [place] [address], Urea nitrogen [Mass/Vol] 15 mg/dL Normal 7-25 [facility] Comment on above: Performed By: #### A PTT, PT, NAYA #### [facility] [address] [place], [address] Basic metabolic 2000 panelon 01-29-2024 Anion gap [Moles/Vol] 15 mmol/L 10 - 20 [facility] Calcium [Mass/Vol] 8.7 mg/dL 8.6 - 10. 3 mg/dL [facility] Chloride [Moles/Vol] 102 mmol/L 98 - 10 7 mmol/L [facility] CO2 [Moles/Vol] 28 mmol/L 21 - 31 mmol/L [facility] Creatinine [Mass/Vol] 0.95 mg/dL 0.60 - 1.20 mg/dL [facility] GFR/1.73 sq M.predicted CKD-EPI (S/P/Bld) [Vol rate/Area] 59 Low - PINF [facility] Comment on above: 2020 CKD EPI Equatio n using Creatinine without Race Comment: Estimated glomerular filtration rate (eGFR) is calculated without a race coefficient. Values should be interpreted in the context of the patient's full clinical presentation. Reference: 1. Alexander C, Jm M, Lamin ESPINAL, et al.. A Unifying Approach for GFR Estimation: Recommendations of the NKF-ASN Task Force on Reassessing the Inclusion of Race in Diagnosing Kidney Disease. [place] Journal of Kidney Diseases 202;79(2):268-88.e1. 2. N Engl J Med 1 Vol. 385 Issue 19 Pages 4014-2601 Glucose [Mass/Vol] 109 mg/dL 74 - 109 mg/dL [facility] Interpretation and review of laboratory results Abnormal [facility] Potassium [Moles/Vol] 3.7 mmol/L 3.5 - 5.0 mmol/L [facility] Sodium [Moles/Vol] 141 mmol/L 136 - 145 mmol/L [facility] Urea nitrogen [Mass/Vol] 15 mg/dL 7 - 25 mg/dL [facility] C Urineon 01-29-2024 Bacteria identified Cx Nom (U) Microbiology PROCEDURE: Urine Culture [R1] SOURCE: U Cath BODY SITE: COLLECTED DATE/TIME: 01/27/2024 21:22 EDT RECEIVED DATE/TIME: 01/27/2024 23:29 EDT START DATE/TIME: 01/27/2024 23:29 EDT FREE TEXT SOURCE: Ladan Suazo DO, Sukumar Suazo DO, Sukumar Thornton. FINAL REPORTS Final Report [] Verified Date/Time: 01/29/2024 14:53 EDT 75,000 cfu/ml Staphylococcus haemolyticus SUSCEPTIBILITY RESULTS __ LEGEND: S=Susceptible, N/R=Not Reported, Blank=Data not available, or drug not advisable or tested, I=Intermediate, ESBL=Extended spectrum beta-lactamase, R=Resistant, TFG=Thymidine-dependent strain, KATEY=Beta-lactamase positive, ARPITA=mcg/m;(mg/L), S*=Predicted susceptible interp, R*=Predicted resistant interp Stahae Antibiotic ARPITA Dilutn ARPITA Interp Amoxicillin/ <=4/2 R Clavulanate Ampicillin >8 R Ampicillin/ <=8/4 R Sulbactam Cefazolin <=8 R Ciprofloxacin <=1 S Daptomycin <=1 S Gentamicin <=4 S Levofloxacin <=1 S Linezolid <=2 S Nitrofurantoin <=32 S Oxacillin 1 R Penicillin >8 R Rifampin <=1 S Tetracycline >8 R Trimethoprim/ <=0.5/9.5 S Sulfa Vancomycin 1 S Performing Locations R1: This test was performed at: [facility], [address] [place] [address], [id number] , [place], Normal [facility] Comment on above: Performed By: #### 2 [id number] #### [facility] Laboratory [address] [place] [address] CBC panel Auto (Bld)on 01-28 Erythrocyte distribution width (RBC) [Ratio] 15.6 % High 11.5 - 14.5 % [facility] Hematocrit (Bld) [Volume fraction] 40.5 % 36.0 - 46.0 % [facility] Hemoglobin (Bld) [Mass/Vol] 13.4 g/dL 12.0 - 15.0 g/dL [facility] Interpretation and review of laboratory results Abnormal [facility] MCH (RBC) [Entitic mass] 28.4 pg 26.0 - 34.0 pg [facility] MCHC (RBC) [Mass/Vol] 33.2 g/dL 32.0 - 35.9 g/dL [facility] MCV (RBC) [Entitic vol] 86 fL 80 - 100 fL [facility] Platelet mean volume (Bld) [Entitic vol] 8.7 fL 7.5 - 11.2 fL [facility] Platelets (Bld) [#/Vol] 344 10*3/uL 150 - 400 K/uL [facility] RBC (Bld) [#/Vol] 4.74 10*6/uL [facility] WBC (Bld) [#/Vol] 11.7 10*3/uL High 4.5 - 11.5 K/uL [facility] COMPLETE BLOOD COUNTon 01-28 Erythrocyte distribution width (RBC) [Ratio] 15.6 % High 11.5-14.5 [facility] Comment on above: Performed By: #### C BC ####[facility] PATHOLOG[facility] [id number] [place], [place], Hematocrit (Bld) [Volume fraction] 40.5 % Normal 36.0-46.0 [facility] Comment on above: Performed By: #### C BC ####[facility] PATHOLOGY [id number] [place], [place], Hemoglobin (Bld) [Mass/Vol] 13.4 g/dL Normal 12.0-15.0 [facility] Comment on above: Performed By: #### C BC ####S PATHOLOGY [id number] [place], [place], MCH (RBC) [Entitic mass] 28.4 pg Normal 26.0-34.0 [facility] Comment on above: Performed By: #### C BC ####[facility] PATHOLOGY [id number] [place], [place], MCHC (RBC) [Mass/Vol] 33.2 g/dL Normal 32.0-35.9 [facility] Comment on above: Performed By: #### C BC ####[facility] PATHOLOGY [id number] [place], [place], MCV (RBC) [Entitic vol] 86 fL Normal 80-100 [facility] Comment on above: Performed By: #### C BC ####[facility] PATHOLOGY [id number] [place], [place], Platelet mean volume (Bld) [Entitic vol] 8.7 fL Normal 7.5-11.2 [facility] Comment on above: Performed By: #### C BC ####[facility] PATHOLOGY [id number] [place], [place], Platelets (Bld) [#/Vol] 344 10*3/uL Normal 150-400 [facility] Comment on above: Performed By: #### C BC ####[facility] PATHOLOGY [id number] [place], [place], RBC (Bld) [#/Vol] 4.74 10*6/uL Normal 4.00-5.20 [facility] Comment on above: Performed By: #### C BC ####[facility] PATHOLOGY [id number] [place], [place], WBC (Bld) [#/Vol] 11.7 10*3/uL High 4.5-11.5 The [facility] Comment on above: Performed By: #### C BC ####[facility] PATH[facility] [id number] [place], [place], Consultson 01-29-2024 [employer] Teacher Authentication Interface Message Text Physical Therapy Attempted to see pt for tx at 15:33 however, pt was off floor at radiology. Will re-attempt as able and continue to follow pt per POC. Ingris Le, PT, DPT Normal [facility] [employer] [facility] [employer] History Teacher Authentication Interface Message Text Initial Adult Inpatient Nutrition Assessment Reason for Visit: Consult: 83yo iwth 19 lb wt loss when on ozempic and aricept, worsenign dementia, falls weakness Nutrition Assessment: Admitting Diagnosis: TRAUMA- Fall No past medical history on file. is allergic to: Not on File Nutritionally Significant Meds: vitamin D, colace, lasix, senna, LR @ 75 cc/hr Labs: Basic Metabolic Panel 01/29/2024 01/28/2024 3:43 AM 3:19 AM Na 141 138 K 3.7 4.7 Cl 102 100 CO2 28 27 Gap 15 16 Glu 109 190 BUN 15 19 Cr 0.95 1.26 Ca 8.7 8.8 CBC (last 3 years, up to 8 values) 01/29/2024 01/28/2024 3:43 AM 3:07 AM WBC 11.7 17.0 RBC 4.74 4.77 Hgb 13.4 13.3 Hct 40.5 40.4 MCV 86 85 RDW 15.6 15.5 Plt 344 368 WBC/Diff 01/28/2024 3:07 AM Neutro% 93.7 Lymphs% 3.5 Monos% 2.5 Eos% 0.1 Basos% 0.3 Fingerstick Glucose (last 72 hours) Glucose 01/29/24 1154 188 01/29/24 0757 108 01/28/24 2045 147 01/28/24 1530 121 01/28/24 1138 108 01/28/24 0811 123 Vital sign ranges over the past 24 hours (retrieved 01/29/2024 at 2:37 PM): Tmax (24 hours): 98.8 ???F (37.1 ???C) Pulse Av.7 Min: 77 Max: 116 Systolic (24hrs), Av , Min:122 , Max:143 Diastolic (24hrs), Av, Min:44, Max:76 MAP (mmHg) Av.3 mmHg Min: 68 mmHg Max: 90 mmHg Resp Av.7 Min: 17 Max: 18 SpO2 Av.7 % Min: 98 % Max: 100 % Intake/Output Summary (Last 24 hours) at 01/29/2024 1437 Last data filed at 01/29/2024 0900 Gross per 24 hour Intake 1081.25 ml Output 700 ml Net 381.25 ml Diet Order: puree, Boost GC Max Height: 5' 4 Weight: 47.6 kg IBW: 55 kg %IBW: 87 BMI: 18.02: Underweight Nutrition Focused Physical Exam: not performed, Pt OOR Edema: none Hair/Nails/Skin: intact Estimated needs: 5385-5460 kcal/d 30-35 kcal/kg 57-72 g pro/d 1.2-1.5 g pro/kg 1440 cc/d 30 cc/kg Assessment: 83 year old year old female with a history of atrial fib on warfarin, CAD, CVA , HTN type 2 DM, ( a1 c? ) mild to moderate dementia, anxiety with hx of falls, recently with head strike 3 wk prior to this admission, who was found down at home unwitnessed fall and taken to [facility], unable to recall the event, became nauseated, and INR 2.85, UA suggestive of UTI, given rocephen x 1, and CTN was not done prior to transfer to ED was category 2 trauma, f presenting to ED on 01/28/2024 for dx of type 2 Dens fracture. Nutrition consulted for weight loss. Pt currently off the floor for standing x-ray. She is currently on puree diet per HEDIS SPECIALIST recs, with hopes of upgrading after standing xray results. No n/v/d/c. Limited weight hx to assess. BMI indicating underweight. She is receiving Boost GC Max with meals, please continue. See recs below, thank you for the consult. ? Nutrition Problems: 1. Concern for malnutrition, pending NFPE Nutrition Interventions: 1. Diet Per HEDIS SPECIALIST recs, upgrade as feasible Continue Boost GC Max TID Family has provided list of foods she likes 2. Nursing updated regarding ordering puree foods in [facility] Will continue to follow Edgar Kim RD, LD Personal Pager [phone] Automatic Door Mechanic Pager: [phone] Normal [facility] Discharge Planning Noteon [employer] History Teacher Authentication Interface Message Text CASE MANAGEMENT CM aware that patient meets criteria for SNF. Met with patient and family on unit to discuss dispo. Patient open and agreeable to SNF placement. CM provided patient and family the quality and resource use measure data from available post-acute (PAC) providers, that best align with the patient's treatment goals and preferences from the medicare.gov compare site for SNF. [place] of Choice was provided to the patient/patient traffic representative. For SNF: RN/MD to complete [employer]. CM portion of GoldenRod-complete. 50821 to be initiated in HENS Pt will require a pre-cert. Patient/family only had one SNF choice, referral submitted in [facility]. Case management will continue following patient for further discharge needs as warranted. Alicia Hou BSN RN CMSRN PRN Burial Vault Setter Normal [facility] [facility] GLUCOSE, FINGERSTICK-IN OFFI CEon 01-29-2024 Glucose [Mass/Vol] 188 mg/dL High 80-116 [facility] Comment on above: Performed By: #### A PTT, PT, NAYA #### [facility] [address] [place], [address] Glucose [Mass/Vol] 108 mg/dL 80 - 116 mg/dL [facility] Interpretation and review of laboratory results [facility] Glucose [Mass/Vol] 108 mg/dL Normal 80-116 [facility] [facility] Comment on above: Performed By: #### 8 [id number] #### NURSING GLUCOSE PROGRAM [address] [place], [address] [place] 01-29-2024 [employer] History Teacher Authentication Interface Message Text Social Work/Case Management: Reason for placement: PT/OT Therapies Patient level of care required : Skilled Applicant's potential for returning to community: Convalescent stay:<30 days Prognosis: Good Rehab Potential: Improve Mental/Behavioral status:Confused Affect: Calm Social Work Assessment Functional status prior to admission: family assist Community agencies active with patient: NA Support system: family Capacity for independent living/ad terminal makeup operator plan:fair Other hospital admissions within the past 60 days: No Other pertinent problems: NA Normal [facility] No Panel Informationon 01-28 [facility] Interpretation and review of laboratory results Abnormal [facility] PARTIAL THROMBOPLASTIN TIMEo n 01-29-2024 aPTT Coag (Bld) [Time] 39 s High [facility] aPTT Coag (Bld) [Time] 39 s High 25-37 Th e [facility] Comment on above: Performed By: #### A PTT, PT ####[facility] PATHOLOGY [id number] [place], [place], PROTHROMBIN TIME AND INRon 0 01-29-2024 INR Coag (PPP) [Relative time] 2.78 {INR} High 0.90 - 1.10 [facility] PT Coag (PPP) [Time] 31.1 s High [facility] INR Coag (PPP) [Relative time] 2.78 {INR} High 0.90-1.10 The [facility] Comment on above: Performed By: #### A PTT, PT ####[facility] PATHOLOGY [id number] [place], [place], PT Coag (PPP) [Time] 31.1 s High 9.7-12.9 The [facility] Comment on above: Performed By: #### A PTT, PT ####S PATHOLOGY [id number] [place], [place], Progress Noteson 01-29-2024 [employer] History Teacher Authentication Interface Message Text Pharmacy Renal Dosing Service Name: Bernardino Guzman Age: [age] year old Gender: female Ht: 5' 4 Wt: 47.6 kg Patient is currently prescribed the following renally monitored Medication(s): Renally Adjusted Meds (720h ago, onward) Ordered Stop 01/29/24 1457 enoxaparin (LOVENOX) 100 mg/mL custom injection 27 mg 0.5 mg/kg (Mathews), Subcutaneous, 2 TIMES DAILY Question: Reason/Indication for Therapy Answer: Venous thromboembolism prophylaxis -- Relevant objective data reviewed: Serum creatinine: 0.95 mg/dL 01/29/24 0343 Estimated creatinine clearance: 33.13 mL/min Assessment and Recommendation: The medication required adjustment for renal function at the time of initial order verification. The original medication order Bactrim 1 SS tablet two times daily has been updated to Bactrim 1 DS tablet two times daily. Medication therapy has been updated per consult agreement. Jer Victoria, PharmD Department of Pharmacy Services Normal [facility] [employer] History Teacher Authentication Interface Message Text ----- GENERAL INFORMATION ---- TRAUMA FLOOR - STAFF NOTE Patient Name: Bernardino Guzman Admission Date: 01/28/2024 Patient seen and examined on 01/29/24 --- INTERVAL HISTORY/EVENTS - Background: Bernardino Guzman is a 83 year old female with a PMHx of w/ pmh significant for a fib on warfarin, pacemaker, mild dementia, CAD, CVA, HTN, and DM2 brought in by EMS from an outside hospital ([facility]) following an unwitnessed fall w/ a daignosis of a Type 2 Dens Fracture. Per EMS, patient was found on floor after being down several hours. Pt at bedside is A AND O x 3. Per patient's paperwork, during her ED course at [facility], pt did have an episode of emesis for which she got a dose of zofran. INR was therapeutic at 2.85. UA was significant for a UTI and patient was given a dose of IV recephin. CTA Neck was not done prior to transfer. Hospital Course: 01/28/2024: Transfer to [facility] for T2 dens fx. Admitted to [facility]. HEDIS SPECIALIST/PT/OT recs provided. 24 Hour Events: No acute overnight events. Patient doing well this morning. Denies pain. She does not care much for breakfast but is eating well. No IV access despite numerous attempts by nursing staff and IV team. Patient with post-prandial emesis this afternoon. Per family, this has occurred in the past/prior to trauma. No new O2 requirements. Vitals: intermittently tachycardic to low 110s. Otherwise VSS on RA. Labs reviewed: Down trending leukocytosis 11.7(17). INR 2.78. BMP per baseline. Syphilis non-reactive. UOP: 700cc, x3 occurances BM: x0 (admit 01/27) PHYSICAL EXAM Vital Signs: Vital sign ranges over the past 24 hours (retrieved 01/29/2024 at 2:25 PM): Tmax (24 hours): 98.8 ???F (37.1 ???C) Pulse Av.7 Min: 77 Max: 116 Systolic (24hrs), Av , Min:122 , Max:143 Diastolic (24hrs), Av, Min:44, Max:76 MAP (mmHg) Av.3 mmHg Min: 68 mmHg Max: 90 mmHg Resp Av.7 Min: 17 Max: 18 SpO2 Av.7 % Min: 98 % Max: 100 % GENERAL: Sitting up in chair. Well-appearing. Pleasant. HEENT: NC, AT. CARDIOVASCULAR: RRR. +2 radial pulses bilaterally PULMONARY: CT b/L. Non labored breathing on RA. ABDOMINAL: Soft. Non-tender, non-distended. No suprapubic tenderness. EXTREMITIES: FERRER spontaneously. NEUROLOGICAL: Alert and oriented to hospital, year, and birthday. No motor or sensory deficits. SKIN: UE ecchymoses of varying sizes and healing stages. LABORATORY RESULTS (LAST 24 HOURS) CBC/PT/INR 01/29/2024 3:43 AM WBC 11.7 RBC 4.74 Hgb 13.4 Hct 40.5 MCV 86 RDW 15.6 Plt 344 aPTT 39 INR 2.78 Basic Metabolic Panel 01/29/2024 3:43 AM Na 141 K 3.7 Cl 102 CO2 28 Gap 15 Glu 109 BUN 15 Cr 0.95 Ca 8.7 Fingerstick Glucose (last 72 hours) Glucose 01/29/24 1154 188 01/29/24 0757 108 01/28/24 2045 147 01/28/24 1530 121 01/28/24 1138 108 01/28/24 0811 123 IMAGING RESULTS (PERSONALLY REVIEWED) All admit imaging and follow up imaging reviewed. Upright c-spine x-rays pending ------ ASSESSMENT AND PLAN --------- Diagnoses: S/p FFS 01/28/2024 Type 2 odontoid fx Acute pain due to trauma UTI (present on admission) PMHx: a fib on warfarin, pacemaker, mild dementia, CAD, CVA, HTN, and DM2 Incidental Findings: Reviewed on 01/29/2024. Not yet discussed. Advanced atherosclerotic disease resulting in severe stenosis ( >70%) of the proximal ICAs and severe stenosis at the right vertebral artery origin Plan: Neurological: Acute pain due to trauma - Continue Tylenol 1g q6 hrs - Continue Oxycodone 2.5 q4hrs for moderate/severe pain - Geriatrics following: - Syphilis negative. TSH and B12 labs pending - recommend start celexa 10mg po daily and in 3-4 days if QTc ok - recommend discontinue CTX - continue melatonin 3mg/d - recommend high dose statin given atherosclerotic disease, CVA hx and ICA Stenosis , atorastatin or crestor have lower side effect profile - avoid resumption of ozempic /trulicity - decrease aricept to 2.5mg in a wk , discontinue in 2 wk (wean ordered) Cardiovascular: Tachycardic to mid 110s. No hypertension. - Obtain VS per unit protocol - Obtain EKG (ordered x2, not obtained) - Continue home Diltiazem, Lasix, Lisinopril and Pravastatin. Consider changing to atorvastatin given ICA stenosis. Respiratory: Saturating appropriately on RA. - Respiratory medical records coordinator protocol - Encourage incentive spirometry - IS goal: 810cc GI/Diet: HEDIS SPECIALIST consulted given C-spine fx and c-collar. Post-prandial emesis. - Change to NPO and re-engage HEDIS SPECIALIST 01/29 - Consider other causes of dysphagia/post-prandial emesis - BR: Dulcolax and Senna. Prn MoM Renal/Electrolytes: GFR 42 on admission. - Obtain BMP, Phos, Mg daily He (more content not included)... 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 Unable to place access at bedside primary rn made aware. Normal [facility] RFA Guidance for placement o f CV catheter in Vein-- W contrast [place] 01-29-2024 Radiology Study observation (narrative) [facility] SYPHILIS WITH CONFIRMATIONon 01-29-2024 T. pallidum Ab LA Qn (S) [facility] T. pallidum IgG+IgM IA Ql (S) Non-Reactive Non-Reacti ve [facility] No results found for : TPPA No components found for: FTA No serologic evidence of syphilis. If recent exposure/early infection is suspected, repeat testing in 2-4 weeks. [facility] SYPHILIS TOTAL (IGG/IGM) Non-Reactive Normal Non-Reacti ve The [facility] Comment on above: Order Comment: No re sults found for: TPPA No components found for: FTA No serologic evidence of syphilis.If recent exposure/early infection is suspected, repeat testing in 2-4 weeks. Performed By: #### 8 [id number] #### NURSING GLUCOSE PROGRAM [address] [place], [address] TPPA Normal The [facility] Comment on above: Order Comment: No re sults found for: TPPA No components found for: FTA No serologic evidence of syphilis.If recent exposure/early infection is suspected, repeat testing in 2-4 weeks. Performed By: #### 8 [id number] #### NURSING GLUCOSE PROGRAM [address] [place], [address] TSHon 01-29-2024 Interpretation and review of laboratory results Normal [facility] TSH Qn 1.160 m[IU]/L [facility] Comment on above: Referance range for women as applicable: First Trimester: 0. 050 to 3.700 uIU/mL Second Trimester: 0. 310 to 4.350 uIU/mL Third Trimester: 0. 410 to 5.180 uIU/mL [facility] TSH 1.160 uIU/mL Normal 0.450-5.33 0 [facility] Comment on above: Result Comment: Refe saul range for women as applicable: First Trimester: 0. 050 to 3.700 uIU/mL Second Trimester: 0. 310 to 4.350 uIU/mL Third Trimester: 0. 410 to 5.180 uIU/mL Performed By: #### 8 [id number] #### NURSING GLUCOSE PROGRAM [address] [place], [address] Treatment Plan Noteon 2023 [employer] History Teacher Authentication Interface Message Text Interval Neurosurgery note: Upright C-spine images completed and reviewed with Dr. Maya Plan: -Trauma primary -[place] collar at all times -please have patient follow up in clinic in two weeks with Dr. Maya -remainder per primary -Neurosurgery signing off at this time October Yanira MSN, WALLPAPER SCRAPER-WESTERN PHILOSOPHY PROFESSOR Neurosurgery [phone] Normal [facility] VITAMIN B12 (CYANOCOBALAMIN) on 01-29-2024 Cobalamin (Vitamin B12) [Moles/Vol] 282 pg/mL 180 - 914 pg/mL [facility] Comment on above: Note Updated Referen ce Range. Interpretation and review of laboratory results Normal [facility] Deficient: <= 145 pg /mL Insufficient: 145 - 180 pg/mL Sufficient: 180 - 914 pg/mL [facility] Cobalamin (Vitamin B12) [Mass/Vol] 282 pg/mL Normal 180-914 [facility] Comment on above: Order Comment: Defic ient: <= 145 pg/mLInsufficient: 145 - 180 pg/mLSufficient: 180 - 914 pg/mL Result Comment: Note Updated Reference Range. Performed By: #### 8 [id number] #### NURSING GLUCOSE PROGRAM [address] [place], [address] XR C-SPINE MORE THAN 5 VIEWS on 01-29-2024 XR C-SPINE MORE THAN 5 VIEWS EXAMINATION: XR C-SPINE MORE THAN 5 VIEWS 01/29/2024 02:24 PM CLINICAL HISTORY: Type 2 Dens fracture ASSOCIATED DIAGNOSIS: ORDERING PROVIDER: ASTRID CONRAD TECHNOLOGISTS NOTE: Best possible standing images COMPARISON: CTA NECK W/ 01/28/2024, 3:28 AM FINDINGS: On the lateral view the C-spine is visible to the C5 level. The known odontoid fracture is questionably visible on the lateral view. There is loss of lordosis lower cervical spine and disc space narrowing and osteophytes at C5-6. The prevertebral soft tissues have normal contours. The bones are osteopenic. The left C3-4 neuroforamen is narrowed by bony encroachment. An implanted cardiac device is partially visualized. The aorta has wall calcifications. The lung apices are hyperinflated. IMPRESSION: The known odontoid fracture demonstrated on CT scan is questionably visible. MACRO: None Normal [facility] [facility] XR Cervical spine Viewson EXAMINATION: XR C-SP INE MORE THAN 5 VIEWS 01/29/2024 02:24 PM CLINICAL HISTORY: Type 2 Dens fracture ASSOCIATED DIAGNOSIS: ORDERING PROVIDER: ASTRID CONRAD TECHNKAYDEN NOTE: Best possible standing images COMPARISON: CTA NECK W/ 01/28/2024, 3:28 AM FINDINGS: On the lateral view the C-spine is visible to the C5 level. The known odontoid fracture is questionably visible on the lateral view. There is loss of lordosis lower cervical spine and disc space narrowing and osteophytes at C5-6. The prevertebral soft tissues have normal contours. The bones are osteopenic. The left C3-4 neuroforamen is narrowed by bony encroachment. An implanted cardiac device is partially visualized. The aorta has wall calcifications. The lung apices are hyperinflated. IMPRESSION: The known odontoid fracture demonstrated on CT scan is questionably visible. MACRO: None RADIOLOGY Peña Aguilera MD - 01/29/2024 EXAMINATION: XR C-SPINE MORE THAN 5 VIEWS 01/29/2024 02:24 PM CLINICAL HISTORY: Type 2 Dens fracture ASSOCIATED DIAGNOSIS: ORDERING PROVIDER: ASTRID CONRAD TECHNKAYDEN NOTE: Best possible standing images COMPARISON: CTA NECK W/ 01/28/2024, 3:28 AM FINDINGS: On the lateral view the C-spine is visible to the C5 level. The known odontoid fracture is questionably visible on the lateral view. There is loss of lordosis lower cervical spine and disc space narrowing and osteophytes at C5-6. The prevertebral soft tissues have normal contours. The bones are osteopenic. The left C3-4 neuroforamen is narrowed by bony encroachment. An implanted cardiac device is partially visualized. The aorta has wall calcifications. The lung apices are hyperinflated. IMPRESSION: The known odontoid fracture demonstrated on CT scan is questionably visible. MACRO: None [facility] Radiology Study observation (narrative) [facility] XR Cervical spine ViewsOrder ed By: Peña Negrokyra on 01-29-2024 [facility] Work Phone: ABO/Rhon 01-28-2024 ABO/Rh Positive Invalid Interpretation Code [facility] Comment on above: Performed By: #### 2 [id number] #### [facility] Laboratory [address] [place] [address] ABO/Rh History Checkon 01-27 ABO/Rh History Check Verified Hx Blood Type Normal [facility] Comment on above: Performed By: #### 1 [id number] #### [facility] Laboratory [address] [place] [address] ABSCon 01-28-2024 ABSC Gel Interp Negative Normal [facility] Comment on above: Performed By: #### 1 [id number] #### [facility] Laboratory [address] [place] [address] BASIC METABOLIC PANELon 01-11 Anion gap [Moles/Vol] 16 mmol/L Normal 10-20 The [facility] Comment on above: Performed By: #### A PTT, PT, NAYA #### S PATHOLOGY LABORATORY [address] [place] [address], Calcium [Mass/Vol] 8.8 mg/dL Normal 8.6-10.3 [facility] Comment on above: Performed By: #### A PTT, PT, NAYA #### [facility] [address] [place] [address], Chloride [Moles/Vol] 100 mmol/L Normal 98-107 [facility] Comment on above: Performed By: #### A PTT, PT, NAYA #### [facility] [address] [place] [address], CO2 [Moles/Vol] 27 mmol/L Normal 21-31 [facility] Comment on above: Performed By: #### A PTT, PT, NAYA #### S PATHOLOGY LABORATORY [address] [place], [place], Creatinine [Mass/Vol] 1.26 mg/dL High 0.60-1.20 [facility] Comment on above: Performed By: #### A PTT, PT, NAYA #### S PATHOLOGY LABORATORY [address] [place], [place], ESTIMATED GFR (CKD-EPI) 42 mL/min/1.73sqm Low >=60 [facility] Comment on above: Result Comment: 2020 CKD EPI Equation using Creatinine without Race Comment: Estimated glomerular filtration rate (eGFR) is calculated without a race coefficient. Values should be interpreted in the context of the patient's full clinical presentation. Reference: 1. Alexander C, Jm M, Lamin ESPINAL, et al.. A Unifying Approach for GFR Estimation: Recommendations of the NKF-ASN Task Force on Reassessing the Inclusion of Race in Diagnosing Kidney Disease. [place] Journal of Kidney Diseases 2021;79(2):268-88.e1. 2. N Engl J Med 2020 Vol. 385 Issue 19 Pages 0566-1625 Performed By: #### A PTT, PT, NAYA #### S [facility] LABORATORY [address] [place], [place], Glucose [Mass/Vol] 190 mg/dL High 74-109 [facility] Comment on above: Performed By: #### A PTT, PT, NAYA #### S PATHOLOGY LABORATORY [address] [place], [place], Potassium [Moles/Vol] 4.7 mmol/L Normal 3.5-5.0 [facility] Comment on above: Result Comment: Hemo lysis present Performed By: #### A PTT, PT, NAYA #### S [facility] LABORATORY [address] [place], [place], Sodium [Moles/Vol] 138 mmol/L Normal 136-145 [facility] Comment on above: Performed By: #### A PTT, PT, NAYA #### S PATHOLOGY LABORATORY [address] [place], [place], Urea nitrogen [Mass/Vol] 19 mg/dL Normal 7-25 [facility] Comment on above: Performed By: #### A PTT, PT, NAYA #### [facility] [address] [facility] [place], [address] Basic metabolic 2000 panelon 01-28-2024 Anion gap [Moles/Vol] 16 mmol/L 10 - 20 [facility] Calcium [Mass/Vol] 8.8 mg/dL 8.6 - 10. 3 mg/dL [facility] Chloride [Moles/Vol] 100 mmol/L 98 - 10 7 mmol/L [facility] CO2 [Moles/Vol] 27 mmol/L 21 - 31 mmol/L [facility] Creatinine [Mass/Vol] 1.26 mg/dL High 0.60 - 1.20 mg/dL [facility] GFR/1.73 sq M.predicted CKD-EPI (S/P/Bld) [Vol rate/Area] 42 Low - PINF [facility] Comment on above: 2020 CKD EPI Equatio n using Creatinine without Race Comment: Estimated glomerular filtration rate (eGFR) is calculated without a race coefficient. Values should be interpreted in the context of the patient's full clinical presentation. Reference: 1. Alexander C, Jm M, Lamin DC, et al.. A Unifying Approach for GFR Estimation: Recommendations of the NKF-ASN Task Force on Reassessing the Inclusion of Race in Diagnosing Kidney Disease. [place] Journal of Kidney Diseases 202;79(2):268-88.e1. 2. N Engl J Med 2020 Vol. 385 Issue 19 Pages 5725-2705 Glucose [Mass/Vol] 190 mg/dL High 74 - 109 mg/dL [facility] Interpretation and review of laboratory results Abnormal [facility] Potassium [Moles/Vol] 4.7 mmol/L 3.5 - 5.0 mmol/L [facility] Comment on above: Hemolysis present Sodium [Moles/Vol] 138 mmol/L 136 - 145 mmol/L [facility] Urea nitrogen [Mass/Vol] 19 mg/dL 7 - 25 mg/dL [facility] Blood Bank ID#on 01-28-2024 BBID# [id number] Invalid Interpretation Code [facility] Comment on above: Performed By: #### 1 [id number] #### [facility] Laboratory [address] [place] [address] CBC WITH DIFFERENTIALOrdered By: Dorota Herrera on 01-28-2024 Basophils (Bld) [#/Vol] 0.04 10*3/uL 0.00 - 0.20 K/uL [facility] Basophils/100 WBC (Bld) 0.3 % NINF - 1.9 % [facility] Eosinophils (Bld) [#/Vol] 0.02 10*3/uL 0.00 - 0.70 K/uL [facility] Eosinophils/100 WBC (Bld) 0.1 % 0.1 - 4.0 % [facility] Erythrocyte distribution width (RBC) [Ratio] 15.5 % High 11.5 - 14.5 % [facility] Hematocrit (Bld) [Volume fraction] 40.4 % 36.0 - 46.0 % [facility] Hemoglobin (Bld) [Mass/Vol] 13.3 g/dL 12.0 - 15.0 g/dL [facility] Interpretation and review of laboratory results Abnormal [facility] Lymphocytes (Bld) [#/Vol] 0.59 10*3/uL Low 1.00 - 4.80 K/uL [facility] Lymphocytes/100 WBC (Bld) 3.5 % Low 24.0 - 44.0 % [facility] MCH (RBC) [Entitic mass] 27.8 pg 26.0 - 34.0 pg [facility] MCHC (RBC) [Mass/Vol] 32.9 g/dL 32.0 - 35.9 g/dL [facility] MCV (RBC) [Entitic vol] 85 fL 80 - 100 fL [facility] Monocyte distribution width Auto (Bld) [Entitic vol] 20 NINF - 20 [facility] Monocytes (Bld) [#/Vol] 0.42 10*3/uL 0.20 - 1.00 K/uL [facility] Monocytes/100 WBC (Bld) 2.5 % 2.0 - 11.0 % [facility] Neutrophils (Bld) [#/Vol] 15.92 10*3/uL High 1.50 - 8.00 K/uL [facility] Neutrophils/100 WBC (Bld) 93.7 % High 31.0 - 76.0 % [facility] Platelet mean volume (Bld) [Entitic vol] 8.9 fL 7.5 - 11.2 fL [facility] Platelets (Bld) [#/Vol] 368 10*3/uL 150 - 400 K/uL [facility] RBC (Bld) [#/Vol] 4.77 10*6/uL [facility] WBC (Bld) [#/Vol] 17.0 10*3/uL High 4.5 - 11.5 K/uL [facility] CBC WITH DIFFERENTIALon 01-11 Basophils (Bld) [#/Vol] 0.04 10*3/uL Normal 0.00-0.20 [facility] Comment on above: Performed By: #### C BCDSAT ####[facility] PATHOLOGY [id number] [place], [place], Basophils/100 WBC (Bld) 0.3 % Normal <=1.9 [facility] Comment on above: Performed By: #### C BCDSAT ####[facility] PATHOLOGY [id number] [place] [address], Eosinophils (Bld) [#/Vol] 0.02 10*3/uL Normal 0.00-0.70 [facility] Comment on above: Performed By: #### C BCDSAT ####[facility] PATHOLOGY [id number] [place] [address], Eosinophils/100 WBC (Bld) 0.1 % Normal 0.1-4.0 [facility] Comment on above: Performed By: #### C BCDSAT ####[facility] PATHOLOGY [id number] [place], [place], Erythrocyte distribution width (RBC) [Ratio] 15.5 % High 11.5-14.5 [facility] Comment on above: Performed By: #### C BCDSAT ####[facility] PATHOLOGY [id number] [place] [address], Hematocrit (Bld) [Volume fraction] 40.4 % Normal 36.0-46.0 [facility] Comment on above: Performed By: #### C BCDSAT ####[facility] PATHOLOGY [id number] [place] [address], Hemoglobin (Bld) [Mass/Vol] 13.3 g/dL Normal 12.0-15.0 [facility] Comment on above: Performed By: #### C DWAYNEAT ####[facility] PATHOLOGY [id number] [place], [place], Lymphocytes (Bld) [#/Vol] 0.59 10*3/uL Low 1.00-4.80 [facility] Comment on above: Performed By: #### C DWAYNEAT ####[facility] PATHOLOGY [id number] [place] [address], Lymphocytes/100 WBC (Bld) 3.5 % Low 24.0-44.0 [facility] Comment on above: Performed By: #### Sury RICEAT ####[facility] PATHOLOGY [id number] [place] [address], MCH (RBC) [Entitic mass] 27.8 pg Normal 26.0-34.0 [facility] Comment on above: Performed By: #### Sury RICEAT ####[facility] PATHOLOGY [id number] [place] [address], MCHC (RBC) [Mass/Vol] 32.9 g/dL Normal 32.0-35.9 [facility] Comment on above: Performed By: #### Sury RICEAT ####[facility] PATHOLOGY [id number] [place] [address], MCV (RBC) [Entitic vol] 85 fL Normal 80-100 [facility] Comment on above: Performed By: #### Sury RICEAT ####[facility] PATHOLOGY [id number] [place] [address], MONOCYTE DISTRIBUTION WIDTH 20 Normal <=20 The [facility] Comment on above: Performed By: #### Sury RICEAT ####[facility] PATHOLOGY [id number] [place] [address], Monocytes (Bld) [#/Vol] 0.42 10*3/uL Normal 0.20-1.00 [facility] Comment on above: Performed By: #### Sury RICEAT ####[facility] PATHOLOGY [id number] [place] [address], Monocytes/100 WBC (Bld) 2.5 % Normal 2.0-11.0 T [facility] Comment on above: Performed By: #### Sury RICEAT ####[facility] PATHOLOGY [id number] [place], [place], Neutrophils (Bld) [#/Vol] 15.92 10*3/uL High 1.50-8.00 [facility] Comment on above: Performed By: #### Sury RICEAT ####[facility] PATHOLOGY [id number] [place] [address], Neutrophils/100 WBC (Bld) 93.7 % High 31.0-76.0 [facility] Comment on above: Performed By: #### Sury RICEAT ####[facility] PATHOLOGY [id number] [place] [address], Platelet mean volume (Bld) [Entitic vol] 8.9 fL Normal 7.5-11.2 [facility] Comment on above: Performed By: #### Sury RICEAT ####[facility] PATHOLOGY [id number] [place] [address], Platelets (Bld) [#/Vol] 368 10*3/uL Normal 150-400 [facility] Comment on above: Performed By: #### Sury RICEAT ####[facility] PATHOLOGY [id number] [place], [place], RBC (Bld) [#/Vol] 4.77 10*6/uL Normal 4.00-5.20 [facility] Comment on above: Performed By: #### Sury RICEAT ####[facility] PATHOLOGY [id number] [place] [address], WBC (Bld) [#/Vol] 17.0 10*3/uL High 4.5-11.5 [facility] Comment on above: Performed By: #### Sury RICEAT ####[facility] PATHOLOGY [id number] [place], [place], CTA NECK W/on 01-28-2024 CTA NECK W/ EXAMINATION: CTA NEC K WITH IV CONTRAST 01/28/2024 03:27 AM CLINICAL HISTORY: Trauma; fall w/ known c2 fx, eval for bcui ASSOCIATED DIAGNOSIS: Trauma fall w/ known c2 fx, eval for bcui ORDERING PROVIDER: LINDA SHOOK TECHNOLOGISTS NOTE: COMPARISON: None TECHNIQUE: CT angiogram of the neck with contrast. Thin isotropic axial imaging was obtained from the aortic arch to the skull base during rapid IV contrast administration for evaluation of the vessels. Multiplanar and 3D maximum intensity projection reformulations were created from the raw CT data which were interpreted in conjunction with the axial images to render the findings listed below. Before infusion of intravenous contrast, radiology personnel investigated the possibility of an allergic history and any history of reaction to iodinated contrast material. Contrast Protocol: Omnipaque 350 [>or =75lb] 75ml [<75 lb] 1 ml per 1 lb. Where applicable, evaluation of ICA stenosis was performed using the site of greatest stenosis compared to the diameter of the ICA distal to the stenosis at the point where the ICA lo become parallel. INTRA-PROCEDURE MEDS: iohexol (OMNIPAQUE) 350 MG/ML injection 75 mL Route: Intravenous Push FINDINGS: Aortic Arch: Aortic atherosclerotic calcification with this extends into the origins of the branch vessels. Moderate atherosclerotic stenosis of the proximal bilateral subclavian arteries. Carotid Arteries Right Common Carotid: Mild to moderate scattered atherosclerotic stenoses. Right Internal Carotid: Atherosclerotic plaque in the bulb and proximal ICA produces severe (>70%) ICA stenosis. Left Common Carotid: Mild scattered atherosclerotic stenoses. Left Internal Carotid: Atherosclerotic plaque in the bulb and proximal ICA produces severe (>70%) ICA stenosis. Vertebral Arteries: Moderate atherosclerotic stenosis of the proximal left vertebral artery. Severe stenosis at the origin of the right vertebral artery. Bilateral proximal intradural vertebral arteries demonstrate moderate atherosclerotic stenosis. Other: Minimally displaced type II odontoid fracture and comminuted fracture of the basion. Associated small volume epidural hematoma extending from the craniocervical junction to C3-C4 and causes abutment of the anterior cord at the cervicomedullary junction. No evidence of a soft tissue mass or lymphadenopathy in the neck or superior mediastinum. 2-3 mm nodules seen in the bilateral peripheral lung apices. IMPRESSION: No evidence of significant cerebrovascular injury. Advanced atherosclerotic disease resulting in severe stenosis ( >70%) of the proximal ICAs and severe stenosis at the right vertebral artery origin. MACRO: None Normal [facility] CTA Neck vessels W contrast IVOrdered By: Maria R Day on 01-28-2024 CT DLP 1451.7 (mGy.cm) [facility] Work Phone: CT Series Head,Head,[facility] Work Phone: CTDI VOL 10.5 (mGy),84.0 (mGy),41.7 (mGy) [facility] Work Phone: PHANTOM TYPE IEC Head Dosimetry Phantom,IEC Head Dosimetry Phantom,IEC Head Dosimetry Phantom [facility] Work Phone: [facility] Work Phone: CTA Neck vessels W contrast [place] 01-28-2024 EXAMINATION: CTA NEC K WITH IV CONTRAST 01/28/2024 03:27 AM CLINICAL HISTORY: Trauma; fall w/ known c2 fx, eval for bcui ASSOCIATED DIAGNOSIS: Trauma fall w/ known c2 fx, eval for bcui ORDERING PROVIDER: LINDA SHOOK TECHNOLOGISTS NOTE: COMPARISON: None TECHNIQUE: CT angiogram of the neck with contrast. Thin isotropic axial imaging was obtained from the aortic arch to the skull base during rapid IV contrast administration for evaluation of the vessels. Multiplanar and 3D maximum intensity projection reformulations were created from the raw CT data which were interpreted in conjunction with the axial images to render the findings listed below. Before infusion of intravenous contrast, radiology personnel investigated the possibility of an allergic history and any history of reaction to iodinated contrast material. Contrast Protocol: Omnipaque 350 [>or =75lb] 75ml [<75 lb] 1 ml per 1 lb. Where applicable, evaluation of ICA stenosis was performed using the site of greatest stenosis compared to the diameter of the ICA distal to the stenosis at the point where the ICA lo become parallel. INTRA-PROCEDURE MEDS: iohexol (OMNIPAQUE) 350 MG/ML injection 75 mL Route: Intravenous Push FINDINGS: Aortic Arch: Aortic atherosclerotic calcification with this extends into the origins of the branch vessels. Moderate atherosclerotic stenosis of the proximal bilateral subclavian arteries. Carotid Arteries Right Common Carotid: Mild to moderate scattered atherosclerotic stenoses. Right Internal Carotid: Atherosclerotic plaque in the bulb and proximal ICA produces severe (>70%) ICA stenosis. Left Common Carotid: Mild scattered atherosclerotic stenoses. Left Internal Carotid: Atherosclerotic plaque in the bulb and proximal ICA produces severe (>70%) ICA stenosis. Vertebral Arteries: Moderate atherosclerotic stenosis of the proximal left vertebral artery. Severe stenosis at the origin of the right vertebral artery. Bilateral proximal intradural vertebral arteries demonstrate moderate atherosclerotic stenosis. Other: Minimally displaced type II odontoid fracture and comminuted fracture of the basion. Associated small volume epidural hematoma extending from the craniocervical junction to C3-C4 and causes abutment of the anterior cord at the cervicomedullary junction. No evidence of a soft tissue mass or lymphadenopathy in the neck or superior mediastinum. 2-3 mm nodules seen in the bilateral peripheral lung apices. IMPRESSION: No evidence of significant cerebrovascular injury. Advanced atherosclerotic disease resulting in severe stenosis ( >70%) of the proximal ICAs and severe stenosis at the right vertebral artery origin. MACRO: None RADIOLOGY Maria R Day MD - 01/28/2024 EXAMINATION: CTA NECK WITH IV CONTRAST 01/28/2024 03:27 AM CLINICAL HISTORY: Trauma; fall w/ known c2 fx, eval for bcui ASSOCIATED DIAGNOSIS: Trauma fall w/ known c2 fx, eval for bcui ORDERING PROVIDER: LINDA SHOOK TECHNOLOGISTS NOTE: COMPARISON: None TECHNIQUE: CT angiogram of the neck with contrast. Thin isotropic axial imaging was obtained from the aortic arch to the skull base during rapid IV contrast administration for evaluation of the vessels. Multiplanar and 3D maximum intensity projection reformulations were created from the raw CT data which were interpreted in conjunction with the axial images to render the findings listed below. Before infusion of intravenous contrast, radiology personnel investigated the possibility of an allergic history and any history of reaction to iodinated contrast material. Contrast Protocol: Omnipaque 350 [>or =75lb] 75ml [<75 lb] 1 ml per 1 lb. Where applicable, evaluation of ICA stenosis was performed using the site of greatest stenosis compared to the diameter of the ICA distal to the stenosis at the point where the ICA lo become parallel. INTRA-PROCEDURE MEDS: iohexol (OMNIPAQUE) 350 MG/ML injection 75 mL Route: Intravenous Push FINDINGS: Aortic Arch: Aortic atherosclerotic calcification with this extends into the origins of the branch vessels. Moderate atherosclerotic stenosis of the proximal bilateral subclavian arteries. Carotid Arteries Right Common Carotid: Mild to moderate scattered atherosclerotic stenoses. Right Internal Carotid: Atherosclerotic plaque in the bulb and proximal ICA produces severe (>70%) ICA stenosis. Left Common Carotid: Mild scattered atherosclerotic stenoses. Left Internal Carotid: Atherosclerotic plaque in the bulb and proximal ICA produces severe (>70%) ICA stenosis. Vertebral Arteries: Moderate atherosclerotic stenosis of the proximal left vertebral artery. Severe stenosis at the origin of the right vertebral artery. Bilateral proximal intradural vertebral arteries demonstrate moderate atherosclerotic stenosis. Other: Minimally displaced type II odontoid fracture and comminuted fracture of the basion. Associated small volume epidural hematoma extending from the craniocervical junction to C3-C4 and causes abutment of the anterior cord at the cervicomedullary junction. No evidence of a soft tissue mass or lymphadenopathy in the neck or superior mediastinum. 2-3 mm nodules seen in the bilateral peripheral lung apices. IMPRESSION: No evidence of significant cerebrovascular injury. Advanced atherosclerotic disease resulting in severe stenosis ( >70%) of the proximal ICAs and severe stenosis at the right vertebral artery origin. MACRO: None [facility] Radiology [facility]ative[facility] [employer] Authentication Interface Message Text Dietitian vs DietaryTech: BeiZ Diet Rn Pediatric Icu Nutrition Screening Reason for visit: Positive nutrition screen for unplanned weight loss Assessment Admitting Diagnosis: TRAUMA- Fall High risk nutrition diagnosis: No - no points Past Medical History: No past medical history on file. Food Allergies: Allergies have not been reviewed Labs: LFT's (last 3 years, up to 8 values) No lab values to display. Albumin: n/a - no points Skin Integrity: No pressure ulcers at this time - no points Fluid Accumulation: wnl Diet Order: NPO Supplements: none % PO Intake: NPO Intake difficulties: None - 0 points 5' 4 105 lbs .47.6 kg Weight history: 111 lbs - November 2023; 114 lbs - October 2023; 121 lbs - Jul 2023 124 lbs - January 2023 per Care Everywhere Weight Only Weight 01/28/2024 3:09 AM 105 lb BMI: 18.02 BMI Screening value: less than 18.5- 4 points % Weight Loss: 6.4% in three months and 13.2% in 3 months Weight Loss Screening Value: Greater than 7.5% in 3 months- 7 points Education: No nutrition education indicated at this time. Comments: currently NPO. Patient sleeping soundly at visit and did not awaken to verbal stimuli. Weights reviewed in Epic and Care Everywhere. Will refer. Number of Points: 7 Nutritional Plan of Care: Greater than or equal to 7 points: Patient is at high nutrition risk. Refer to RD. Will continue to follow, Jacque Cantrell, Diet Rn Pediatric Icu Pager [phone] Normal [facility] [employer] Authentication Interface Message Text SPINE TRAUMA H AND P Patient Name: Bernardino Guzman Primary Care Physician: No primary care provider on file. CONSULTED BY: Trauma CONSULTED FOR: Type 2 odontoid fracture CHIEF COMPLAINT: S/p FFS HPI: Pt is an 83 yo F with PMH afib, HTN, HLD, CKD, PAD (ASA AND Plavix), DM, prior CVA who presents s/p FFS after slipping at her house. Upon arrival to OSH a CT C-spine was conducted which shows a Type 2 odontoid fracture for which patient was transferred to [facility] and NSGY was consulted. Denies pain or any other symptoms. Antiplatelet/Anticoagulan t: ASA AND Plavix PAST MEDICAL HISTORY: No past medical history on file. PAST SURGICAL HISTORY: No past surgical history on file. FAMILY HISTORY: No family history on file. SOCIAL HISTORY: Social History Occupational History Not on file Tobacco Use Smoking status: Not on file Smokeless tobacco: Not on file Substance and Sexual Activity Alcohol use: Not on file Drug use: Not on file Sexual activity: Not on file MEDICATIONS: ALLERGIES: Not on File COMPLETE REVIEW OF SYSTEMS: ROS 06/24 systems negative other than above LABS: CBC/PT/INR 01/28/2024 3:07 AM WBC 17.0 RBC 4.77 Hgb 13.3 Hct 40.4 MCV 85 RDW 15.5 Plt 368 aPTT 41 INR 2.80 Basic Metabolic Panel 01/28/2024 3:19 AM Na 138 K 4.7 Cl 100 CO2 27 Gap 16 Glu 190 BUN 19 Cr 1.26 Ca 8.8 NEURO EXAM: Slightly confused on exam Ox2 (not place) Face grossly symmetric C-collar in place BUE: grossly full strength throughout all muscle groups BLE: grossly full strength throughout all muscle groups No Hoffmans No Clonus Sensation grossly intact and symmetric throughout PHYSICAL EXAM: Vitals: 01/28/24 0312 BP: 117/59 Pulse: 96 Resp: 16 Temp: SpO2: 97% General appearance: Slightly confused. Skin: Skin color normal. No rashes or lesions. Head: Normocephalic. No masses, lesions. Eyes: Conjunctivae not injected /corneas clear. Ears: External ears normal. Nose/Sinuses: External nose normal. Neck: C-collar in place. Lungs: No acute respiratory distress. Heart: Regular rate. RADIOLOGY: CT C-spine: Type 2 odontoid fracture SPINE CLASSIFICATION: 1. Spinal fracture level: Cervical: C2 2. Neurological level of injury: None 3. Fracture morphology: Type 2 Dens 4. Facet fracture: No BL: Bilateral injury: No 5. Neurological status: N0: Intact N+: Ongoing compression with neurological deficit: No 6. Clinical modifiers: None 7.Previous spine surgery: No 8. Previous spine trauma: No ASSESSMENT/PLAN: Pt is an 83 yo F with PMH afib, HTN, HLD, CKD, PAD (ASA AND Plavix), DM, prior CVA who presents s/p FFS after slipping at her house. Upon arrival to OSH a CT C-spine was conducted which shows a Type 2 odontoid fracture for which patient was transferred to [facility] and NSGY was consulted. -No acute neurosurgical intervention -Maintain C-collar at all times -Recommend C-spine upright X-rays (including odontoid view) -Further recs pending completion of imaging Above plan was discussed with the (Chief) within 30 minutes of consult and discussed with the staff Dr. Emilia Hua PA-C Neurosurgery Pager: [phone] Split/Shared Documentation I approve the management plan for this patient and take responsibility for the plan as documented. Independent Interpretation of Tests Performed by Another Physician/MARCELO: I personally performed, reviewed, and interpreted CT C-spine with findings of Type 2 Dens fracture. Barney Hua PA-C Normal [facility] ED Clinical Summaryon 2023 ED Clinical Summary ED Clinical Summary [place] [id number] ED Clinical Summary Person Information Name: BERNARDINO GUZMAN Yvonne/[facility]_Likely Age: 83 Years : 1940 Sex: Female Language: Australian PCP: Deepti ENRIQUEZ, Apurva Yepez Marital Status: Visit Id: Visit Reason: Fall; Vomiting; Altered mental status; AMS FALL Speciality: Acuity: 2 Enc Type: Emergency Med Service: Emergency Arrival: 01/27/2024 21:05:57 Discharge: 01/28/2024 02:02:21 LOS: 000 04:57 Checkin: 01/27/2024 21:05:57 Checkout: 01/28/2024 02:02:21 Dispo Type: Nurse Fac - Medicaid EVENTS: Event Name Event Status Request Date/Time Start Date/Time Complete Date/Time Arrive Complete 01/27/2024 21:05:57 01/27/2024 21:05:57 01/27/2024 21:05:57 Document Home Meds Request 01/27/2024 21:05:57 Triage Complete 01/27/2024 21:05:57 01/27/2024 21:12:19 01/27/2024 21:12:19 Bed Assign Complete 01/27/2024 21:05:57 01/27/2024 21:05:57 01/27/2024 21:05:57 Dr Exam Complete 01/27/2024 21:05:57 01/27/2024 21:09:54 01/27/2024 21:09:54 RN Exam Complete 01/27/2024 21:05:57 01/27/2024 22:10:07 01/27/2024 22:10:07 Registration Complete 01/27/2024 21:09:54 01/27/2024 21:11:54 01/27/2024 21:11:54 EKG Complete 01/27/2024 21:10:24 01/27/2024 21:36:27 Pending Labs Complete 01/27/2024 21:11:18 01/27/2024 21:11:18 01/27/2024 21:11:19 Reg Complete Request 01/27/2024 21:11:54 Reg Bed Request Complete 01/27/2024 21:11:54 01/27/2024 21:11:54 01/27/2024 21:11:54 NPO Request 01/27/2024 21:15:51 Pending Labs Complete 01/27/2024 21:15:51 01/27/2024 21:35:26 01/28/2024 00:30:15 Lab Complete 01/27/2024 21:15:51 01/27/2024 22:11:57 Urine Collect Complete 01/27/2024 21:15:51 01/27/2024 22:11:57 RT Request 01/27/2024 21:15:51 Patient Care Request 01/27/2024 21:15:51 CT Complete 01/27/2024 21:15:51 01/28/2024 00:16:22 01/28/2024 00:17:49 Blood Collect Request 01/27/2024 21:15:51 Trauma II Request 01/27/2024 21:22:18 Meds Admin Complete 01/27/2024 21:32:33 01/27/2024 21:38:53 Pending Labs Complete 01/27/2024 21:34:41 01/27/2024 21:34:41 01/27/2024 21:59:28 Lab Complete 01/27/2024 21:34:41 01/27/2024 21:34:41 01/27/2024 21:59:28 Pending Labs Complete 01/27/2024 21:35:50 01/27/2024 21:35:50 01/27/2024 21:58:04 Lab Complete 01/27/2024 21:35:50 01/27/2024 21:35:50 01/27/2024 21:58:04 Pending Labs Complete 01/27/2024 21:58:04 01/27/2024 22:25:48 Lab Complete 01/27/2024 21:58:04 01/27/2024 22:25:48 Possible Sepsis Request 01/27/2024 22:05:36 Fall Risk Request 01/27/2024 22:10:08 Pending Labs Inlab 01/27/2024 23:04:03 01/27/2024 23:04:03 Lab Inlab 01/27/2024 23:04:03 01/27/2024 23:04:03 Meds Admin Complete 01/27/2024 23:12:08 01/27/2024 23:20:55 Patient Care Request 01/28/2024 01:18:16 Transfer Complete 01/28/2024 01:18:16 01/28/2024 02:02:44 01/28/2024 02:02:44 Discharge Complete 01/28/2024 02:02:44 01/28/2024 02:02:44 01/28/2024 02:02:44 ADDRESS: [address] [place], [place] [address]Y [facility] [id number] PHYS DOC NOTES: MEDICAL INFORMATION: Prescriptions Given: Medications to Continue with No Changes Other Medications cholecalciferol (cholecalciferol 1000 intl units (25 mcg) oral tablet) 1 Tablets By Mouth every day. cholecalciferol (Vitamin D 1000 intl units (25 mcg) Tab) 1 Tablets By Mouth every day. clopidogrel (clopidogrel 75 mg Tab) 1 Tablets By Mouth every day. diltiazem (Dilt-XR 120 mg/24 hours oral capsule, extended release) 1 Capsules By Mouth every day. dulaglutide (Trulicity Pen 1.5 mg/0.5 mL subcutaneous solution) 1.5 Milligram Subcutaneous . furosemide (furosemide 20 mg Tab) 1 Tablets By Mouth every other day. hydrALAZINE (hydrALAZINE 25 mg Tab) 1 Tablets By Mouth every day. insulin aspart (NovoLog FlexPen) Only takes at bedtime if sugar is high, sliding scale. insulin detemir (Levemir FlexTouch) 10 Units Subcutaneous once a day (in the morning). loperamide (Immodium A-D 2 mg Tab) 1 Tablets By Mouth every 4 hours as needed for loose stool. melatonin (melatonin 10 mg oral capsule) 1 Capsules By Mouth once a day (at bedtime). multivitamin with minerals (Ocuvite oral tablet) 1 Tablets By Mouth every day. simvastatin (simvastatin 40 mg Tab) 1 Tablets By Mouth once a day (at bedtime). warfarin (warfarin 2 mg Tab) 1 tab qTuesWedsFriSat Sun 1.5 tabs qMonThurs. PATIENT EDUCATION INFORMATION: Instructions: Follow up: DIAGNOSIS: Acute UTI; Closed head injury; Closed odontoid fracture with type II morphology; N&V (nausea and vomiting) Normal [facility] ED Note-Nursingon 01-28-2024 ED Note-Nursing ED Note-Nursing family says pt had hearing aid in left ear. not noted on transfer. called over to [facility] radiology and talked to Nanci who said he removed hearing aid, hair clips, and watch. was placed in bag and given to Nurse Wound Care. called and spoke to Juan Jose from [facility] who had belongings and dropped them off. Called daughter Karoline who picked belongings up. Normal [facility] ED Note-Physicianon 01-28-20 ED Note-Physician ED Note-Physician Basic Information Time Seen: Sukumar Suazo DO 01/27/2024 21:09 Chief Complaint pt was seen on video camera fall in kitchen around 10am. unknown if hit head. pt doesn't remember. is on blood thinners. pt has been more confused over last few weeks per family History of Present Illness HPI: Patient is an 83-year-old female with past medical history of atrial fibrillation, CKD, hyperlipidemia, hypertension, mitral regurgitation, paroxysmal atrial fibrillation, restless leg syndrome, vitamin D deficiency who presents the ED by EMS for fall and confusion. Patient's family states the patient has been slightly more confused than usual over the past 1 to 2 weeks. Today they saw their indoor camera that she had a fall in the kitchen and the patient was having trouble getting up on her own. Patient does remember falling but does not think she hit her head or lost consciousness. She is on blood thinners. She denies any pain at this time. ROS: Pertinent review of systems conducted and is negative except as noted above. Physical exam: General: nontoxic appearing and in no distress HEENT: Mucous membranes moist, No parham sign, hemotympanum, or raccoon eyes. Neuro: awake and alert. GCS is 15. CN II - XII grossly intact, motor and sensation to the four extremities are grossly intact Neck: supple, trachea midline. No midline tenderness of the cervical spine. Card: Heart regular rate and rhythm no murmur Resp: Lungs clear to auscultation no wheeze or rhonchi. No flail chest or crepitus. Abd: Soft and nondistended. No tenderness with no rebound or guarding. Spine: No midline tenderness of the thoracic or lumbar spine. No palpable bony deformity. Pelvis: Stable to palpation. Ext: No gross deformity of the extremities. No focal tenderness to palpation. Physical Exam Vitals & Measurements T: 36.7 ?C(Oral) HR: 105(Peripheral) RR: 20 BP: 129/57 SpO2: 98% HT: 165.10 cm WT: 51.3 kg BMI: 18.82 Medical Decision Making MEDICAL DECISION MAKING Number and Complexity of Problems Differential Diagnosis: [] [facility] Data External documents reviewed: N/A My EKG interpretation: Noted in chart if applicable My CT interpretation: N/A My X-ray interpretation: Noted in chart if applicable My Ultrasound interpretation: N/A Decision rules/scores evaluated: N/A Discussed with: N/A Treatment and Disposition ED Course: Arrival to ED the patient is awake and alert. She denies any current pain at this time. She does have some nausea and did have an episode of emesis so she was given IV Zofran. Will obtain a CT of the head neck chest abdomen pelvis in addition to blood work and urinalysis. Blood work shows a leukocytosis of 15.4. Her INR is therapeutic at 2.85. Imaging is positive for acute type II odontoid fracture with mild leftward displacement of the odontoid fragment. No widening of the predental space or central canal stenosis. The remainder of the CT imaging is negative for acute traumatic process. Urine does show signs of UTI so she was started on IV Rocephin. I called and discussed the results of the imaging with the trauma surgeon on-call Dr Ribeiro recommended the patient be transferred to [facility] for further evaluation. Patient is excepted at [facility] by Dr. Vazquez Shared decision making: As above Code status: N/A Assessment/Plan Acute UTI (N39.0: Urinary tract infection, site not specified) Closed head injury (S09.90XA: Unspecified injury of head, initial encounter) Closed odontoid fracture with type II morphology (S12.110A: Anterior displaced Type II dens fracture, initial encounter for closed fracture) N&V (nausea and vomiting) (R11.2: Nausea with vomiting, unspecified) Orders: ondansetron, 4 mg = 2 mL, Injection, IV Push, Once, Stop date 01/27/24 21:32:00 EDT, STAT, Start date 01/27/24 21:32:00 EDT, 01/27/24 21:32:00 EDT promethazine 12.5 mg + Sodium Chloride 0.9% intravenous solution 50 mL, Injection, IV Piggyback, Once, Stop date 01/27/24 23:11:00 EDT, STAT, Start date 01/27/24 23:11:00 EDT, 151.5 mL/hr, Infuse over 20 minute(s) ABO/Rh ABO/Rh History Check Ammonia Level Antibody Screen Basic Metabolic Panel Blood Bank ID# CBC w/ Auto Diff Creatine Kinase CT Abdomen/Pelvis w/ Contrast CT Chest w/ Contrast CT Head or Brain w/o Contrast CT Spine Cervical w/o Contrast Drug Screen Urine ED Cardiac Monitoring eGFR Ethanol Level Hepatic Function Panel Lactic Acid Lactic Acid Lipase Level NPO Diet Oxygen Therapy PT & PTT Pulse Oximetry Continuous Saline Lock Insert Troponin UA with Cult Rflx Urine Culture Medications Administered Given [id number] [F] 12.5 mg + Sodium Chloride 0.9% IV Nona 50 mL [F] 50 mL, IV Piggyback Zofran 4 mg/2 mL Injection, 4 mg, IV Push Disposition Plan Discharge Prescription List Prescriptions No active prescription medications Follow-up No qualifying data available Problem List/Past Medical History Ongoing A (more content not included)... Normal [facility] Comment on above: Result Comment: Elec tronically Signed By: Sukumar Suazo DO\.br\Date and Time Signed: 01/28/24 01:18 EDT ED Patient Education Noteon 01-28-2024 ED Patient Education Note ED Patient Education Note Normal [facility] ED Patient Summaryon 024 ED Patient Summary ED Patient Summary [place] [id number] Patient Discharge Instructions Person Information Name: BERNARDINO GUZMAN Age: 83 Years Arrival Date: 01/27/2024 21:05:57 Discharge Diagnosis: Acute UTI; Closed head injury; Closed odontoid fracture with type II morphology; N&V (nausea and vomiting) Primary Care Physician: Apurva Tatum MD Provider Information Primary Provider: Sukumar Suazo DO Advanced Technology Strategist:None The exam and treatment you received in the Emergency Department were for an urgent problem and are not intended as complete care. It is important that you follow up with a doctor, nurse practitioner, or physician?s academic assistant for ongoing care. If your symptoms become worse or you do not improve as expected and you are unable to reach your usual health care provider, you should return to the Emergency Department. We are available 24 hours a day. BERNARDINO GUZMAN has been given the following list of patient education materials, prescriptions and follow-up instructions: Follow-up Instructions: In the event that this physician does not participate in your insurance network, please consult with your insurance company to find a nearby participating provider. Patient Education Materials: A MESSAGE TO ALL PATIENTS REGARDING OPIOIDS PRESCRIPTION OPIOIDS: WHAT YOU NEED TO KNOW Prescription opioids can be used to help relieve cthucggn-hl-fvpbgn pain and are often prescribed following a surgery or injury, or for certain health conditions. These medications can be an important part of the treatment but also come with serious risks. It is important to work with your healthcare provider to make sure you are getting the safest, most effective care. WHAT ARE THE RISKS AND SIDE EFFECTS OF OPIOID USE? Prescription opioids carry serious risks of addiction and overdose, especially with prolonged use. An opioid overdose, often marked by slowed breathing, can cause sudden . The use of prescription opioids can have a number of side effects as well, even when taken as directed: ? Tolerance?meaning you might need to take more of the medication for the same pain relief ? Physical dependence?meaning you have symptoms of withdrawal when a medication is stopped ? Increased sensitivity to pain ? Constipation ? Nausea, vomiting, and dry mouth ? Sleepiness and dizziness ? Confusion ? Depression ? Low levels of testosterone that can result in lower sex drive, energy, and strength ? Itching and sweating RISKS ARE GREATER WITH: ? History of drug misuse, substance use disorder, or overdose ? Mental health conditions (such as depression or anxiety) ? Sleep apnea ? Older age (65 years and older) ? Avoid alcohol while taking prescription opioids. Also, unless specifically advised by your health care provider, medications to avoid include: ? Benzodiazepines (such as Xanax or Valium) ? Muscle relaxants (such as Soma or Flexeril) ? Hypnotics (such as Ambien or Lunesta) ? Other prescription opioids KNOW YOUR OPTIONS Talk to your health care provider about ways to manage your pain that don?t involve prescription opioids. Some of these options may actually work better and have fewer risks and side effects. Options may include: ? Pain relievers such as acetaminophen, ibuprofen, and naproxen ? Some medication that are also used for depression or seizures ? Physical therapy and exercise ? Cognitive behavioral therapy, a psychological, goal-directed approach, in which patients learn how to modify physical, behavioral, and emotional triggers of pain and stress. IF YOU ARE PRESCRIBED OPIOIDS FOR PAIN: ? Never take opioids in greater amounts or more often than prescribed. ? Follow up with your primary health care provider. o Work together to create a plan on how to manage your pain. o Talk about ways to help manage your pain that don?t involve prescription opioids. o Talk about any and all concerns and side effects. ? Help prevent misuse and abuse o Never sell or share prescription opioids. o Never use another person?s prescription opioids. ? Store prescription opioids in a secure place and out of reach of others (this may include visitors, children, friends, and family). ? Safely dispose of unused prescription opioids: Find your community drug take-back program or your pharmacy mail-back program, or flush them down the toilet, following guidance from the Food and Drug Administration (www.fda.gov/Drugs/Resour cesForYou). ? Visit www.cdc.gov/drugoverdose to learn about the risks of opioids abuse and overdose. ? If you believe you may be struggling with addiction, tell your health caretaker resort and ask for guidance or call [facility]?S National Helpline at 0-204-509-WNBV. a Source: US Department of Health and Human Services/Center for Disease Contro (more content not included)... Normal [facility] ED Provider Noteson 01-28-20 24 [employer] History Teacher Authentication Interface Message Text ----- Attestation signed by Robert Hu MD at 01/30/2024 9:52 PM ATTENDING NOTE I saw and evaluated the patient. I personally obtained the abbott and critical portions of the history and physical exam. I reviewed/revised the resident's documentation and discussed the patient with the resident. I agree with the resident's medical decision making as documented in the resident's note. Robert Hu MD ----- EMERGENCY DEPARTMENT - TRAUMA/VISIT NOTE ----- HISTORY OF PRESENT ILLNESS - C/C - Ground level fall, odontoid fx Hr Generalist: not needed - patient preferred language is Australian. Bernardino Guzman is a 83 year old female with PMH of that mentioned below presenting to the ED as a CAT 2 trauma. Per reports by FT, pt allegedly had a ground level fall last night resulting in an odontoid fx. Transferred to [facility] for spine consult. Pt does not remember the event and denies current pain. States compliance with blood thinner. Pt denies fever, headache, dizziness, chest pain, SOB, abdominal pain, N/V, urinary burning, diarrhea, motor/sensory deficits bilaterally or auditory/visual concerns. Pt currently on AC, no known bleeding disorders/bleeding disorders in the family. Reports last tetanus was unknown. REVIEW OF SYSTEMS 12-point ROS negative unless otherwise mentioned in the HPI or MDM. PAST HISTORY Pertinent Past History: Mild dementia, atrial fib on warfarin, CAD, CVA, HTN and DMII Pertinent Family History: No pertinent prior family history Pertinent Social History: No pertinent prior social history PHYSICAL EXAM BP 131/61 (BP Location: right arm) Pulse 92 Temp 99 ???F (37.2 ???C) (Oral) Resp 18 Ht 5' 4 (1.626 m) Wt 105 lb (47.6 kg) SpO2 98% BMI 18.02 kg/m??? Primary Survey Airway: Intact and Talking Breathing: Spontaneous, Bilateral breath sounds, and Not labored Circulation: Palpable bilateral radial and Palpable bilateral DP Total [place] Coma Scale: 15 Eyes: eyes open = 4 Verbal: alert and oriented = 5 Motor: obeys commands = 6 Secondary Survey Constitutional: Nursing triage notes reviewed, Vital signs reviewed, and Alert Head: Atraumatic. No cephalohematoma. Midface is stable. No Raccoon eyes. No Parham's sign. Eyes: PERRL. Pupils are 4 mm bilaterally. EOMI. No conjunctival injection. Ears: No hemotympanum. Nose: No nasal deformity. No septal hematoma. Mouth/Throat: Airway intact. No malocclusion. No dental injury. Neck: C-collar in place. Trachea midline. Cervical midline bony tenderness, no deformities, or step-offs. Cardiovascular: Normal rate. Regular rhythm. Heart sounds normal. Peripheral pulses are 2+ in all extremities. Pulmonary/Chest: Lungs are clear bilaterally. No decreased breath sounds. No external evidence of trauma to the chest. Chest wall is stable and non-tender. No crepitus. No flail segment. No asymmetric rise. Abdominal: No distension. Soft. No tenderness to palpation. No external evidence of abdominal trauma. Genitourinary: No evidence of genital injury. Back: No midline bony tenderness, deformities, or step-offs of the thoracic or lumbar spine. No abrasions or ecchymosis EXT: Pelvis stable to compression and non tender. RUE: No deformities. Full ROM. There is no bony tenderness. LUE: No deformities. Full ROM. There is no bony tenderness. RLE: No deformities. Full ROM. There is no bony tenderness. LLE: No deformities. Full ROM. There is no bony tenderness. Neurological: Strength is 5/5 in upper and lower extremities bilaterally. Distal sensation grossly intact. MEDICAL DECISION MAKING and ED COURSE Nursing triage and assessment notes reviewed and incorporated. Independent Test Interpretation: CT scans personally reviewed and interpreted, findings of small epidural hematoma to the cervical region. Final decision-making pending radiology read. Management Decisions: I discussed this case with [employer] consultant/admitting service trauma sx and spine team, and they recommended admission to trauma floor for further care of the above Medication Management: Medications prescribed - see visit medications. Robert Hu Course: ED Course as of 01/28/24923Jan 28, 2024 0924 CTA neck: Minimally displaced type II odontoid fracture and comminuted fracture of the basion. Associated small volume epidural hematoma extending from the craniocervical junction to C3-C4 and causes abutment of the anterior cord at the cervicomedullary junction. No evidence of a (more content not included)... Normal [facility] ETHANOL, SERUMon 01-28-2024 Ethanol [Mass/Vol] mg/dL None Detected mg/dL [facility] Interpretation and review of laboratory results [facility] Ethanol [Mass/Vol] mg/dL Normal None Detected [facility] Comment on above: Performed By: #### A PTT, PT, NAYA #### [facility] [address] [place], [address] GLUCOSE, FINGERSTICK-IN OFFI CEon 01-28-2024 Glucose [Mass/Vol] 147 mg/dL High 80 - 116 mg/dL [facility] Interpretation and review of laboratory results Abnormal [facility] Glucose [Mass/Vol] 147 mg/dL High 80-116 [facility] Comment on above: Performed By: #### 8 2948 ####NURSING GLUCOSE [id number] [place], [address] Glucose [Mass/Vol] 121 mg/dL High 80 - 116 mg/dL [facility] Interpretation and review of laboratory results Abnormal [facility] Glucose [Mass/Vol] 121 mg/dL High 80-116 [facility] Comment on above: Performed By: #### 8 2948 #### NURSING GLUCOSE PROGRAM [address] [place], [address] Glucose [Mass/Vol] 108 mg/dL 80 - 116 mg/dL [facility] Interpretation and review of laboratory results Normal [facility] Glucose [Mass/Vol] 108 mg/dL Normal 80-116 [facility] Comment on above: Performed By: #### 8 2948 ####NURSING GLUCOSE [id number] [place], [address] Glucose [Mass/Vol] 123 mg/dL High 80 - 116 mg/dL [facility] Interpretation and review of laboratory results Abnormal [facility] Glucose [Mass/Vol] 123 mg/dL High 80-116 [facility] Comment on above: Performed By: #### 8 2948 #### NURSING GLUCOSE PROGRAM [address] [place], [address] HIGH SENSITIVITY TROPONIN Io n 01-28-2024 Troponin I.cardiac DL <= 0.01 ng/mL [Mass/Vol] 18 ng/L High NINF - 15 ng/L [facility] HS TROPONIN I 18 ng/L High <=15 [facility] Comment on above: Order Comment: High Sensitivity Cardiac Troponin I (hsTnI) assay has replaced the conventional troponin assay at [facility].All results are reported in whole numbers representing ng/L.Repeat test times for ruling out acute coronary syndrome (ACS) are every 2 hours instead of every 6-8 hours.[id number] conventional troponin (I-stat) will remain available in the Main [place] ED ??? results obtained by different labs or methods are not comparable.Elevated troponin can result from acute myocardial infarction (coronary etiology) or myocardial injury (non-coronary etiology) ??? always consider both.For ruling out acute coronary syndrome (ACS), lab values are always used in conjunction with clinical risk assessment (e.g., HEART score).Interpreting initial value in ruling out ACSLess than 5 ng/L ??? below lower limit of quantification ??? essentially rules out ACS if chest pain began more than 3 hours prior to test and assessed risk is low5 - 49 ng/L ??? indeterminate ??? consider repeat value in 2 hours depending on risk [id number] ng/L or greater??? concern for ACS or myocardial injuryInterpreting repeated values in ruling out ACS.Always compare to initial value obtained:Increase of less than 5 ng/L ??? essentially rules out ACS if chest pain began more than 3 hours prior to initial test and assessed risk is lowIncrease of 5 - 19 ng/L ??? indeterminate ??? consider another repeat value in 2 hours depending on risk assessmentIncrease of 20 ng/L or greater ??? Concern for ACS or myocardial injuryAny absolute value of 50 ng/L or greater ??? concern for ACS or myocardial injuryIntermediate hsTnI values DO NOT mandate admission to a cardiology or telemetry unit. They need to be interpreted within the clinical context using provider judgement.When using hsTnI to calculate the HEART score, use the 99 % Upper Reference Limit of 15 ng/L as the normal limit (i.e. <=15 ng/L = 0 points, 16-45 ng/L = 1 points, >45 ng/L = 2 points). Performed By: #### 8 2948 #### NURSING GLUCOSE PROGRAM [address] [place] [address], [address] HIV 1 and 2 Ab and HIV 1 p24 Ag panel IAOrdered By: Amber Lobato on 01-28-2024 HIV 1+2 Ab+HIV1 p24 Ag IA Ql Non-Reactive Non-Reacti ve [facility] Comment on above: No laboratory eviden ce for HIV Infection. Negative result does not rule out acute HIV infection. If acute HIV infection is suspected, recommend ordering an HIV-1 RNA quanitification test. Interpretation and review of laboratory results Normal [facility] HIV Information: [place] Rev. code 3701.243(E): This information has been disclosed to you from confidential records protected from disclosure by state law. You shall make no further disclosure of this information without the specific, written, and informed release of the individual to whom it pertains, or as otherwise permitted by state law. A general authorization for the release of medical or other information is not sufficient for the purpose of the release of HIV test results or diagnoses. [facility] HIV1 HIV2 AGAB Armando 2023 HIV AG-AB SCREEN Non-Reactive Normal Non-Reacti ve [facility] Comment on above: Order Comment: HIV I nformation: ???[place] Rev. code 3701.243(E):This information has been disclosed to you from confidential records protected from disclosure by state law. ???You shall make no further disclosure of this information without the specific, written, and informed release of the individual to whom it pertains, or as otherwise permitted by state law. ???A general authorization for the release of medical or other information is not sufficient for the purpose of the release of HIV test results or diagnoses. Result Comment: No l aboratory evidence for HIV Infection. Negative result does not rule out acute HIV infection. If acute HIV infection is suspected, recommend ordering an HIV-1 RNA quanitification test. Performed By: #### h iv1 hiv2 agab scrn ####[facility] [id number] [place], [place], LACTIC ACIDOrdered By: Marko Meade on 01-28-2024 Interpretation and review of laboratory results Normal [facility] Lactate [Moles/Vol] 1.4 mmol/L 0.5 - 1. 6 mmol/L [facility] LACTIC ACIDon 01-28-2024 CR LACT 1.4 mmol/L Normal 0.5-1.6 [facility] Comment on above: Performed By: #### 8 2948 #### NURSING GLUCOSE PROGRAM [address] [place], [address] No Panel InformationOrdered By: Amber Lobato on 01-28-2024 [facility] No Panel Informationon 01-27 Interpretation and review of laboratory results Abnormal [facility] PARTIAL THROMBOPLASTIN TIMEo n 01-28-2024 aPTT Coag (Bld) [Time] 41 s High [facility] aPTT Coag (Bld) [Time] 41 s High 25-37 Th e [facility] Comment on above: Performed By: #### A PTT, PT, NAYA #### [facility] [address] [place], [address] PROTHROMBIN TIME AND INRon 0 01-28-2024 INR Coag (PPP) [Relative time] 2.80 {INR} High 0.90 - 1.10 [facility] PT Coag (PPP) [Time] 31.4 s High [facility] INR Coag (PPP) [Relative time] 2.80 {INR} High 0.90-1.10 [facility] Comment on above: Performed By: #### A PTT, PT, NAYA #### S [facility] LAB[facility]AT[facility] [address], [place], PT Coag (PPP) [Time] 31.4 s High 9.7-12.9 [facility] Comment on above: Performed By: #### A PTT, PT, NAYA #### [facility] [address], [place], Progress Noteson 01-28-2024 [employer] 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 from [facility] s/p fall with type 2 odontoid fracture, +thinners Pt fell from standing and does not recall the details of the fall. Pt was down for hours before family found her. Pt lives at home with her daughter Socorro and utilizes a walker. SW attempted to call daughter Socorro Franklin ([phone]). No answer, SW left a voicemail. EMS states family was present at OSH and was aware of pt's transfer to [facility]. Plan: Destiney Ziegler, EXPERT MEDICAL WRITER, IT OPERATIONS SPECIALIST ED Mower Sharpener Normal [facility] TYPE AND SCREENon 01-28-2024 Blood group antibody screen Ql Negative [facility] ABO and Rh group Nom (Bld) Blood group A Rh(D) positive Normal [facility] Comment on above: Performed By: #### 8 [id number] #### NURSING GLUCOSE PROGRAM [address] [place], [place], ABO and Rh group Nom (Bld) No Previous Results Normal [facility] Comment on above: Performed By: #### 8 [id number] #### NURSING GLUCOSE PROGRAM [address] [place], [place], ABSC INT Negative Normal [facility] Comment on above: Performed By: #### 8 [id number] #### NURSING GLUCOSE PROGRAM [address] [place], [place], Troponin I.cardiac DL <= 0.0 1 ng/mL [Mass/Vol]on 01-28-2024 Interpretation and review of laboratory results Abnormal [facility] High Sensitivity Car dia Troponin I (hsTnI) assay has replaced the conventional troponin assay at [facility]. All results are reported in whole numbers representing ng/L. Repeat test times for ruling out acute coronary syndrome (ACS) are every 2 hours instead of every 6-8 hours. Nllad-wn-xrng conventional troponin (I-stat) will remain available in the Main [place] ED results obtained by different labs or methods are not comparable. Elevated troponin can result from acute myocardial infarction (coronary etiology) or myocardial injury (non-coronary etiology) always consider both. For ruling out acute coronary syndrome (ACS), lab values are always used in conjunction with clinical risk assessment (e.g., HEART score). Interpreting initial value in ruling out ACS Less than 5 ng/L below lower limit of quantification essentially rules out ACS if chest pain began more than 3 hours prior to test and assessed risk is low 5 - 49 ng/L indeterminate consider repeat value in 2 hours depending on risk assessment 50 ng/L or greater concern for ACS or myocardial injury Interpreting repeated values in ruling out ACS. Always compare to initial value obtained: Increase of less than 5 ng/L essentially rules out ACS if chest pain began more than 3 hours prior to initial test and assessed risk is low Increase of 5 - 19 ng/L indeterminate consider another repeat value in 2 hours depending on risk assessment Increase of 20 ng/L or greater Concern for ACS or myocardial injury Any absolute value of 50 ng/L or greater concern for ACS or myocardial injury Intermediate hsTnI values DO NOT mandate admission to a cardiology or telemetry unit. They need to be interpreted within the clinical context using provider judgement. When using hsTnI to calculate the HEART score, use the 99 % Upper Reference Limit of 15 ng/L as the normal limit (i.e. <=15 ng/L = 0 points, 16-45 ng/L = 1 points, >45 ng/L = 2 points). [facility] UA with Cult Rflxon 01-28-20 24 UA Spec Desc Catheter Normal [facility] Comment on above: Result Comment: Mini cath specimen Performed By: #### 4 [id number] #### [facility] [address] [place] [address] Ammoniaon 01-27-2024 Ammonia (P) [Moles/Vol] 14 mcmol Normal 11-35 [facility] Comment on above: Performed By: #### 2 [id number] #### [facility] [address] [place] [address] BLOOD BANKOrdered By: Juan Nick on 01-27-2024 ABO/Rh Interp Positive Invalid Interpretation Code [facility] BB Subsection ABSC Gel Interp Negative (01/27/24 9:31 PM) Normal [facility] BB Subsection BMPon 01-27-2024 Anion gap [Moles/Vol] 16 mmol/L Normal 6-16 [facility] Comment on above: Performed By: #### 2 [id number] #### [facility] [address] [place] [address] Calcium [Mass/Vol] 9.1 mg/dL Normal 8.9-11.[address] [facility] Comment on above: Performed By: #### 2 [id number] #### [facility] [address] [place] [address] Chloride [Moles/Vol] 101 mmol/L Normal 101-111 [facility] Comment on above: Performed By: #### 2 [id number] #### [facility] [address] [place] [address] CO2 [Moles/Vol] 23 mmol/L Normal 21-31 [facility] Comment on above: Performed By: #### 2 [id number] #### [facility] [address] [place] [address] Creatinine [Mass/Vol] 1.2 mg/dL Normal 0.5-1.3 [facility] Comment on above: Performed By: #### 2 [id number] #### [facility] [address] [place] [address] Glucose [Mass/Vol] 260 mg/dL High 55-[address] [facility] Comment on above: Performed By: #### 2 [id number] #### [facility] [address] [place] [address] Potassium [Moles/Vol] 3.4 mmol/L Low 3.5-5.3 [facility] Comment on above: Performed By: #### 2 [id number] #### [facility] [address] [place] [address] Sodium [Moles/Vol] 137 mmol/L Normal 135-[address] [facility] Comment on above: Performed By: #### 2 [id number] #### [facility] [address] [place] [address] Urea nitrogen [Mass/Vol] 19 mg/dL Normal 5-[address] [facility] Comment on above: Performed By: #### 2 [id number] #### [facility] [address] [place] [address] Urea nitrogen/Creatinine [Mass ratio] 16 No Units Normal 10-[address] [facility] Comment on above: Performed By: #### 2 [id number] #### [facility] [address] [place] [address] CBC w/ Auto Diffon 4 Basophils/100 WBC (Bld) 0.4 % Normal 0.0-2.0 [facility] Comment on above: Performed By: #### 2 [id number] #### [facility] [address] [place] [address] Basophils/Leukocytes Auto (Bld) [Pure # fraction] 0.1 E9/L Normal 0.0-0.[address] [facility] Comment on above: Performed By: #### 2 [id number] #### [facility] [address] [place] [address] Eosinophils (Bld) [#/Vol] 0.2 E9/L Normal 0.0-0.[address] [facility] Comment on above: Performed By: #### 2 [id number] #### [facility] [address] [place] [address] Eosinophils/100 WBC (Bld) 1.1 % Normal 0.0-8.[address] [facility] Comment on above: Performed By: #### 2 [id number] #### [facility] [address] [place] [address] Erythrocyte distribution width (RBC) [Ratio] 15.4 % High 10.9-14.[address] [facility] Comment on above: Performed By: #### 2 [id number] #### [facility] [address] [place] [address] Hematocrit (Bld) [Volume fraction] 39.9 % Normal 34.0-46.[address] [facility] Comment on above: Performed By: #### 2 [id number] #### [facility] [address] [place] [address] Hemoglobin (Bld) [Mass/Vol] 13.7 g/dL Normal 12.0-16.[address] [facility] Comment on above: Performed By: #### 2 [id number] #### [facility] [address] [place] [address] Lymphocytes (Bld) [#/Vol] 1.4 E9/L Normal 1.0-4.[address] [facility] Comment on above: Performed By: #### 2 [id number] #### [facility] [address] [place] [address] Lymphocytes/100 WBC (Bld) 8.8 % Low 14.0-50.[address] [facility] Comment on above: Performed By: #### 2 [id number] #### [facility] [address] [place] [address] MCH (RBC) [Entitic mass] 29.1 pg Normal 27.0-34.[address] [facility] Comment on above: Performed By: #### 2 [id number] #### [facility] [address] [place] [address] MCHC (RBC) [Mass/Vol] 34.2 g/dL Normal 31.4-36.0 [facility] Comment on above: Performed By: #### 2 [id number] #### [facility] [address] [place] [address] MCV (RBC) [Entitic vol] 84.8 fL Normal 80.0-100.0 [facility] Comment on above: Performed By: #### 2 [id number] #### [facility] [address] [place] [address] Monocytes (Bld) [#/Vol] 0.6 E9/L Normal 0.2-1.0 [facility] Comment on above: Performed By: #### 2 [id number] #### [facility] [address] [place] [address] Neutrophils (Bld) [#/Vol] 13.2 E9/L High 2.0-7.[address] [facility] Comment on above: Performed By: #### 2 [id number] #### [facility] [address] [place] [address] Neutrophils/100 WBC (Bld) 85.6 % High 36.0-75.[address] [facility] Comment on above: Performed By: #### 2 [id number] #### [facility] [address] [place] [address] Platelet 373.0 E9/L Normal 150.0-500. [address] [facility] Comment on above: Performed By: #### 2 [id number] #### [facility] [address] [place] [address] Platelet mean volume (Bld) [Entitic vol] 8.9 fL Normal 6.4-10.[address] [facility] Comment on above: Performed By: #### 2 [id number] #### [facility] [address] [place] [address] RBC (Bld) [#/Vol] 4.7 E12/L Normal 4.3-5.[address] [facility] Comment on above: Performed By: #### 2 [id number] #### [facility] [address] [place] [address] WBC corrected for nucl RBC Auto (Bld) [#/Vol] 15.4 E9/L High 4.0-11.0 [facility] Comment on above: Performed By: #### 2 [id number] #### [facility] [address] [place] [address] CHEMISTRYOrdered By: SYSTEM SYSTEM on 01-27-2024 Lactic Acid Lvl 1.0 mmol/L Normal 0.5 - 2.2 mmol/L [facility] Albumin [Mass/Vol] 3.6 g/dL Normal 3.3 - 5.0 gm/dL [facility] Albumin/Globulin [Mass ratio] 1.2 {ratio} Normal 1.1 - 2.2 [facility] ALP [Catalytic activity/Vol] 45 [iU]/d Normal 21 - 98 Int._Unit/ L [facility] ALT No additional P-5'-P [Catalytic activity/Vol] 20 [iU]/d Normal 6 - 46 Int._Unit/ L [facility] Ammonia (P) [Moles/Vol] 14 umol Normal 11 - 35 mcmol [facility] Anion gap [Moles/Vol] 16 mmol/L Normal 6 - 16 mEq/L [facility] AST [Catalytic activity/Vol] 32 [iU]/d Normal 5 - 43 Int._Unit/ L [facility] Bilirubin [Mass/Vol] 0.4 mg/dL Normal 0.0 - 1 .1 mg/dL [facility] Bilirubin.direct [Mass/Vol] 0.1 mg/dL Normal 0.0 - 0.4 mg/dL [facility] Bilirubin.indirect [Mass or moles/Vol] 0.3 mg/dL Normal 0.1 - 0.9 mg/dL [facility] Calcium [Mass/Vol] 9.1 mg/dL Normal 8.9 - 11. 1 mg/dL [facility] Chloride [Moles/Vol] 101 mmol/L Normal 101 - 1 11 mmol/L [facility] CO2 [Moles/Vol] 23 mmol/L Normal 21 - 31 mmol/L [facility] Creatinine [Mass/Vol] 1.2 mg/dL Normal 0.5 - 1.3 mg/dL [facility] eGFR 44 mL/min/1.73 m2 Low >=59mL/min /1.73 m2 [facility] Ethanol Lvl mg/dL Normal <=11mg/dL [facility] Globulin (S) [Mass/Vol] 2.9 g/dL Normal 1.4 - 4.0 gm/dL [facility] Glucose [Mass/Vol] 260 mg/dL High 55 - 199 mg/dL [facility] Lactic Acid Lvl 2.3 mmol/L High 0.5 - 2.2 mmol/L [facility] Lipase [Catalytic activity/Vol] 24 U/L Normal 13 - 58 unit/L [facility] Potassium [Moles/Vol] 3.4 mmol/L Low 3.5 - 5.3 mmol/L [facility] Protein [Mass/Vol] 6.5 g/dL Normal 6.0 - 7.8 gm/dL [facility] Sodium [Moles/Vol] 137 mmol/L Normal 135 - 145 mmol/L [facility] Total CK 41 [iU]/d Normal 14 - 261 Int._Unit/ L [facility] Troponin HS 17.40 pg/mL Normal 10.10 - 27.10 pg/mL [facility] Comment on above: Interpretive Data: T he 95% CI (Confidence Interval) PPV (Positive Predictive Value) for myocardial infarction in females is 38 pg/mL, in males 51 pg/mL. The results should be used in conjunction with clinical conditions of myocardial infarction. (Access High Sensitivity Troponin I Instructions For Use, Radha Albert, February 2018) Urea nitrogen [Mass/Vol] 19 mg/dL Normal 5 - 21 mg/dL [facility] Urea nitrogen/Creatinine [Mass ratio] 16 mg/mg Normal 10 - 20 [facility] CHEMISTRYOrdered By: Loren Nick on 01-27-2024 Amphetamines Screen method >1000 ng/mL Ql (U) NEGATIVE 8 (01/27/24 9:22 PM) Normal NEGATIVE [facility] Comment on above: Interpretive Data: N egative Cutoff: <1000 ng/mL Barbiturates Screen Ql (U) NEGATIVE 9 (01/27/24 9:22 PM) Normal NEGATIVE [facility] Comment on above: Interpretive Data: N egative Cutoff: <200 ng/mL Benzodiazepines Ql (U) NEGATIVE 1 (01/27/24 9:22 PM) Normal NEGATIVE [facility] Comment on above: Interpretive Data: N egative Cutoff: <200 ng/mL Cannabinoids Screen Ql (U) NEGATIVE 7 (01/27/24 9:22 PM) Normal NEGATIVE [facility] Comment on above: Interpretive Data: N egative Cutoff: <50 ng/mL Cocaine Ql (U) NEGATIVE 2 (01/27/24 9:22 PM) Normal NEGATIVE [facility] Comment on above: Interpretive Data: N egative Cutoff: <300 ng/mL Opiates Screen Ql (U) NEGATIVE 4 (01/27/24 9:22 PM) Normal NEGATIVE [facility] Comment on above: Interpretive Data: N egative Cutoff: <300 ng/mL Phencyclidine Screen method >25 ng/mL Ql (U) NEGATIVE 5 (01/27/24 9:22 PM) Normal NEGATIVE [facility] Comment on above: Interpretive Data: N egative Cutoff: <25 ng/mL These drug screen results are to be used for medical (i.e., treatment) purposes only. Unconfirmed drug screening results must not be used for non-medical purposes (e.g., employment testing, legal testing). U Fentanyl NEGATIVE 15 (01/27/24 9:22 PM) Normal NEGATIVE [facility] Chem S Comment on above: Interpretive Data: N egative Cutoff: <5 ng/mL These drug screen results are to be used for medical (i.e., treatment) purposes only. Unconfirmed drug screening results must not be used for non-medical purposes (e.g., employment testing, legal testing). CHEMISTRYOrdered By: Lab ROP User on 01-27-2024 Glucose [Mass/Vol] 279 mg/dL High 55 - 99 mg/dL [facility] POC Subsection Comment on above: Result Comment: Hemrinio dillard RN/MD POC Device SN [id number] 1 Invalid Interpretation Code [facility] POC Subsection POC User ID [id number] 1 Invalid Interpretation Code [facility] POC Subsection POC Username PHILOMENA AGUILLON Invalid Interpretation Code [facility] POC Subsection CKon 01-27-2024 Total CK 41 Int._Unit/L Normal 14-261 [facility] Comment on above: Performed By: #### 2 [id number] #### [facility] [address] [place] [address] COAGULATIONOrdered By: Gianna Nick on 01-27-2024 aPTT Coag (PPP) [Time] 46.3 s High 25.1 - 36.5 second(s) [facility] Auto Coag Comment on above: Interpretive Data: P arameter 15 days - 4 weeks 1 - 5 months 6 - 11 months 1 - 5 years 6 - 10 years 11 - 17 years PTT Mean: 35.4 (27.6-45.6) Mean: 33.5 (24.8-40.7) Mean: 32.4 (25.1-40.7) Mean: 31.6 (24.0-39.2) Mean: 31.6 (26.9-38.7) Mean: 31.0 (24.6-38.4) Pediatric Reference ranges were obtained from a study by corie Damian alAlejandro prepared from 1437 samples obtained at 7 different centers using the same coagulation reagent and instrumentation as [facility]. Currently there are no coagulation studies available worldwide for children to 14 days, and no normal ranges. Heparin therapeutic range (represented by Anti-Factor Xa activity of 0.2 - 0.4 U/mL) corresponds to PTT of 56.6 - 109.0 sec. INR Coag (PPP) [Relative time] 2.85 {INR} Invalid Interpretation Code [facility] Auto Coag Comment on above: Interpretive Data: I NR results are specifically intended to assess patients stabilized on long-term Anticoagulation therapy suggested INR s Less Intensive Anticoagulation 2.0 3.0 Conventional Range 3.0 4.5 PT Coag (PPP) [Time] 32.3 s High 9.4 - 1 2.5 second(s) [facility] Auto Coag Comment on above: Interpretive Data: 1 5 days - 4 weeks 1 - 5 months 6 -11 months 1-5 years 6-10 years 11 -17 years Mean: 11.2 (9.5-12.6) Mean: 11.0 (9.7-12.8) Mean: 11.0 (9.8-13.0) Mean: 11.3 (9.9-13.4) Mean: 11.7 (10.0-14.6) Mean: 11.8 (10.0 - 14.1) Pediatric Reference ranges were obtained from a study by phan Damian prepared from 1437 samples obtained at 7 different centers using the same coagulation reagent and instrumentation as [facility]. Currently there are no coagulation studies available worldwide for children to 14 days, and no normal ranges. Capillary Glucose POCon 01-11 Glucose [Mass/Vol] 279 mg/dL High 55-[address] [facility] Comment on above: Result Comment: Herminio dillard RN/ Performed By: #### 2 [id number] #### [facility] [address] [place] [address] Ethanolon 01-27-2024 Ethanol Lvl <10 Normal <=[address] [facility] Comment on above: Performed By: #### 2 [id number] #### [facility] [address] [place] [address] HEMATOLOGYOrdered By: SYSTEM SYSTEM on 01-27-2024 Basophils/100 WBC (Bld) 0.4 % Normal 0.0 - 2.0 % [facility] Basophils/Leukocytes Auto (Bld) [Pure # fraction] 0.1 E9/L Normal 0.0 - 0.2 E9/L [facility] Eosinophils (Bld) [#/Vol] 0.2 E9/L Normal 0.0 - 0.5 E9/L [facility] Eosinophils/100 WBC (Bld) 1.1 % Normal 0.0 - 8.0 % [facility] Erythrocyte distribution width (RBC) [Ratio] 15.4 % High 10.9 - 14.2 % [facility] Hematocrit (Bld) [Volume fraction] 39.9 % Normal 34.0 - 46.0 % [facility] Hemoglobin (Bld) [Mass/Vol] 13.7 g/dL Normal 12.0 - 16.0 gm/dL [facility] Lymphocytes (Bld) [#/Vol] 1.4 E9/L Normal 1.0 - 4.0 E9/L [facility] Lymphocytes/100 WBC (Bld) 8.8 % Low 14.0 - 50.0 % [facility] MCH (RBC) [Entitic mass] 29.1 pg Normal 27.0 - 34.0 pg [facility] MCHC (RBC) [Mass/Vol] 34.2 g/dL Normal 31.4 - 36.0 gm/dL [facility] MCV (RBC) [Entitic vol] 84.8 fL Normal 80.0 - 100.0 fL [facility] Monocytes (Bld) [#/Vol] 0.6 E9/L Normal 0.2 - 1.0 E9/L [facility] Monocytes/100 WBC (Bld) 4.1 % Normal 4.0 - 14.0 % [facility] Neutrophils (Bld) [#/Vol] 13.2 E9/L High 2.0 - 7.5 E9/L [facility] Neutrophils/100 WBC (Bld) 85.6 % High 36.0 - 75.0 % [facility] Platelet 373.0 E9/L Normal 150.0 - 500.0 E9/L [facility] Platelet mean volume (Bld) [Entitic vol] 8.9 fL Normal 6.4 - 10.8 fL [facility] RBC (Bld) [#/Vol] 4.7 E12/L Normal 4.3 - 5.9 E12/L [facility] WBC corrected for nucl RBC Auto (Bld) [#/Vol] 15.4 E9/L High 4.0 - 11.0 E9/L [facility] Hep Func Panelon 01-27-2024 Albumin [Mass/Vol] 3.6 g/dL Normal 3.3-5.[address] [facility] Comment on above: Performed By: #### 2 [id number] #### [facility] [address] [place] [address] Albumin/Globulin (S) [Mass conc ratio] 1.2 Normal 1.1-2.[address] [facility] Comment on above: Performed By: #### 2 [id number] #### [facility] [address] [place] [address] ALP [Catalytic activity/Vol] 45 Int._Unit/L Normal 21-[address] [facility] Comment on above: Performed By: #### 2 [id number] #### [facility] [address] [place] [address] ALT No additional P-5'-P [Catalytic activity/Vol] 20 Int._Unit/L Normal 6-[address] [facility] Comment on above: Performed By: #### 2 [id number] #### [facility] [address] [place] [address] AST [Catalytic activity/Vol] 32 Int._Unit/L Normal 5-[address] [facility] Comment on above: Performed By: #### 2 [id number] #### [facility] [address] [place] [address] Bilirubin [Mass/Vol] 0.4 mg/dL Normal 0.0-1.1 [facility] Comment on above: Performed By: #### 2 [id number] #### [facility] [address] [place] [address] Bilirubin.direct [Mass/Vol] 0.1 mg/dL Normal 0.0-0.[address] [facility] Comment on above: Performed By: #### 2 [id number] #### [facility] [address] [place] [address] Bilirubin.indirect [Mass or moles/Vol] 0.3 mg/dL Normal 0.1-0.[address] [facility] Comment on above: Performed By: #### 2 [id number] #### [facility] [address] [place] [address] Globulin (S) [Mass/Vol] 2.9 g/dL Normal 1.4-4.0 [facility] Comment on above: Performed By: #### 2 [id number] #### [facility] [address] [place] [address] Protein [Mass/Vol] 6.5 g/dL Normal 6.0-7.[address] [facility] Comment on above: Performed By: #### 2 [id number] #### [facility] [address] [place] [address] Laboratory - Microbiology an d Antimicrobial susceptibilityOrdered By: Brianna Alexander on 01-27-2024 Bacteria identified Cx Nom (U) 75,000 cfu/ml Staphylococcus species [facility] Lactic Acidon 01-27-2024 Lactic Acid Lvl 1.0 mmol/L Normal 0.5-2.2 [facility] Comment on above: Order Comment: Order added by EKS Rule. (FT_LACTIC_ACID_REFLEX) Adds reflex Lactic Acid 4 hours after initial if result is greater than or equal to 2.0. Performed By: #### 2 [id number] #### [facility] [address] [place] [address] Lactic Acid Lvl 2.3 mmol/L High 0.5-2.2 [facility] Comment on above: Performed By: #### 2 [id number] #### [facility] [address] [place] [address] Lipase Levelon 01-27-2024 Lipase [Catalytic activity/Vol] 24 U/L Normal 13-[address] [facility] Comment on above: Performed By: #### 2 [id number] #### [facility] [address] [place] [address] PT & PTTon 01-27-2024 aPTT Coag (PPP) [Time] 46.3 second(s) High 25.1-36.[address] [facility] Comment on above: Result Comment: Para meter 15 days - 4 weeks 1 - 5 months 6 - 11 months 1 - 5 years 6 - 10 years 11 - 17 years PTT Mean: 35.4 (27.6-45.6) Mean: 33.5 (24.8-40.7) Mean: 32.4 (25.1-40.7) Mean: 31.6 (24.0-39.2) Mean: 31.6 (26.9-38.7) Mean: 31.0 (24.6-38.4) Pediatric Reference ranges were obtained from a study by Be Fair et al. prepared from 1437 samples obtained at 7 different centers using the same coagulation reagent and instrumentation as [facility]. Currently there are no coagulation studies available worldwide for children to 14 days, and no normal ranges. Heparin therapeutic range (represented by Anti-Factor Xa activity of 0.2 - 0.4 U/mL) corresponds to PTT of 56.6 - 109.0 sec. Performed By: #### 1 [id number] #### [facility] [address] [place] [address] INR Coag (PPP) [Relative time] 2.85 {INR} Invalid Interpretation Code [facility] Comment on above: Result Comment: INR results are specifically intended to assess patients stabilized on long-term Anticoagulation therapy suggested INR?s ?Less Intensive Anticoagulation? 2.0 ? 3.0 Conventional Range 3.0 ? 4.5 Performed By: #### 1 [id number] #### [facility] [address] [place] [address] PT Coag (PPP) [Time] 32.3 second(s) High 9.4-12.[address] [facility] Comment on above: Result Comment: 15 d ays - 4 weeks 1 - 5 months 6 -11 months 1-5 years 6-10 years 11 -17 years Mean: 11.2 (9.5-12.6) Mean: 11.0 (9.7-12.8) Mean: 11.0 (9.8-13.0) Mean: 11.3 (9.9-13.4) Mean: 11.7 (10.0-14.6) Mean: 11.8 (10.0 - 14.1) Pediatric Reference ranges were obtained from a study by Be Fair et al. prepared from 1437 samples obtained at 7 different centers using the same coagulation reagent and instrumentation as [facility]. Currently there are no coagulation studies available worldwide for children to 14 days, and no normal ranges. Performed By: #### 1 [id number] #### [facility] [address] [place] [address] Pre-Arrival Noteon Pre-Arrival Note Pre-Arrival Note Pre-Arrival Summary Name: , JONNA Current Date: 01/27/2024 21:07:21 EDT Gender: Female Date of : Age: 83 Pre-Arrival Type: EMS ETA: 01/27/2024 21:00:00 EDT Primary Care Physician: Presenting Problem: Pre-Arrival User: Alessandra Garcia RN Referring Source: Location: [place] Completion Date/Time: 01/27/2024 20:57:00 [facility] Emergency Department Pre-Hospital Report Form ____ Vital Signs: 80's-120's afib 98%-room air Pre-Hospital Report:fall earlier today, AMS w/ hx of dementia ongong for few weeks Treatment in Route:fluids & 4mg zofran Response to Treatment: Misc. Issues: Normal [facility] Troponinon 01-27-2024 Troponin HS 17.40 pg/mL Normal 10.10-27.[address] [facility] Comment on above: Result Comment: The 95% CI (Confidence Interval) PPV (Positive Predictive Value) for myocardial infarction in females is 38 pg/mL, in males 51 pg/mL. The results should be used in conjunction with clinical conditions of myocardial infarction. (Access High Sensitivity Troponin I Instructions For Use, [employer], February 2018) Performed By: #### 2 [id number] #### [facility] Laboratory [address] [place] [address] U Drug Screenon 01-27-2024 Amphetamines Screen method >1000 ng/mL Ql (U) Negative Normal NEGATIVE [facility] Comment on above: Result Comment: Nega tive Cutoff: <1000 ng/mL Performed By: #### 2 [id number] #### [facility] [address] [place] [address] Barbiturates Screen Ql (U) Negative Normal NEGATIVE [facility] Comment on above: Result Comment: Nega tive Cutoff: <200 ng/mL Performed By: #### 2 [id number] #### [facility] [address] [place] [address] Benzodiazepines Ql (U) Negative Normal NEGATIVE [facility] Comment on above: Result Comment: Nega tive Cutoff: <200 ng/mL Performed By: #### 2 [id number] #### [facility] [address] [place] [address] Cannabinoids Screen Ql (U) Negative Normal NEGATIVE [facility] Comment on above: Result Comment: Nega tive Cutoff: <50 ng/mL Performed By: #### 2 [id number] #### [facility] [address] [place] [address] Cocaine Ql (U) Negative Normal NEGATIVE [facility] Comment on above: Result Comment: Nega tive Cutoff: <300 ng/mL Performed By: #### 2 [id number] #### [facility] [address] [place] [address] Opiates Screen Ql (U) Negative Normal NEGATIVE [facility] Comment on above: Result Comment: Nega tive Cutoff: <300 ng/mL Performed By: #### 2 [id number] #### [facility] [address] [place] [address] Phencyclidine Screen method >25 ng/mL Ql (U) Negative Normal NEGATIVE [facility] Comment on above: Result Comment: Nega tive Cutoff: <25 ng/mL These drug screen results are to be used for medical (i.e., treatment) purposes only. Unconfirmed drug screening results must not be used for non-medical purposes (e.g., employment testing, legal testing). Performed By: #### 2 [id number] #### [facility] [address] [place] [address] U Fentanyl Negative Normal NEGATIVE [facility] Comment on above: Result Comment: Nega tive Cutoff: <5 ng/mL These drug screen results are to be used for medical (i.e., treatment) purposes only. Unconfirmed drug screening results must not be used for non-medical purposes (e.g., employment testing, legal testing). Performed By: #### 2 [id number] #### [facility] [address] [place] [address] UA with Cult [employer]flxon 01-27-20 24 Bilirubin Ql (U) Negative Normal Negative [facility] Comment on above: Performed By: #### 4 [id number] #### [facility] [address] [place] [address] Clarity (U) Clear Normal Clear [facility] Comment on above: Performed By: #### 4 [id number] #### [facility] [address] [place] [address] Color (U) Colorless Abnormal Yellow [facility] Comment on above: Result Comment: Micr oscopic readings are only performed on those samples that meet specific criteria set forth by [facility]. Performed By: #### 4 [id number] #### [facility] [address] [place] [address] Glucose Ql (U) Negative Normal Negative [facility] Comment on above: Performed By: #### 4 [id number] #### [facility] [address] [place] [address] Hemoglobin Auto test strip (U) [Mass/Vol] Negative Normal Negative [facility] Comment on above: Performed By: #### 4 [id number] #### [facility] [address] [place] [address] Ketones Auto test strip Ql (U) Negative Normal Negative [facility] Comment on above: Performed By: #### 4 [id number] #### [facility] [address] [place] [address] Leukocyte esterase Auto test strip Ql (U) 75 Shaun/uL Abnormal Negative [facility] Comment on above: Performed By: #### 4 [id number] #### [facility] [address] [place] [address] Mucus Auto Ql (U) Negative Normal Negative [facility] Comment on above: Performed By: #### 4 [id number] #### [facility] [address] [place] [address] Nitrite Auto test strip Ql (U) 1+ mg/dL Abnormal Negative [facility] Comment on above: Performed By: #### 4 [id number] #### [facility] [address] [place] [address] pH (U) 5.5 [pH] Invalid Interpretation Code 5.0-9.[address] [facility] Comment on above: Performed By: #### 4 [id number] #### [facility] [address] [place] [address] Protein Ql (U) Negative Normal Negative [facility] Comment on above: Performed By: #### 4 [id number] #### [facility] [address] [place] [address] Specific gravity (U) [Rel density] 1.005 Invalid Interpretation Code 1.005-1.[address] [facility] Comment on above: Performed By: #### 4 [id number] #### [facility] [address] [place] [address] Urobilinogen (U) [Mass/Vol] Negative Normal Negative [facility] Comment on above: Performed By: #### 4 [id number] #### [facility] [address] [place] [address] WBC Auto (Urine sed) [#/Area] 6-15 Abnormal 0-[address] [facility] Comment on above: Performed By: #### 4 [id number] #### [facility] [address] [place] [address] Type of Urine collection method Clean Catch Normal [facility] Comment on above: Performed By: #### 4 [id number] #### [facility] [address] [place] [address] URINALYSISOrdered By: SYSTEM SYSTEM on 01-27-2024 Bilirubin Ql (U) Negative Normal Negativemg /dL [facility] Auto SS Clarity (U) Clear (01/27/24 9:22 PM) Normal Clear [facility] UA Auto SS Color (U) Colorless 3 *ABN* (01/27/24 9:22 PM) Invalid Interpretation Code Yellow [facility] UA Auto SS Comment on above: Interpretive Data: M icroscopic readings are only performed on those samples that meet specific criteria set forth by [facility]. Glucose Ql (U) Negative Normal Negativemg /dL [facility]A Auto SS Hemoglobin Auto test strip (U) [Mass/Vol] Negative Normal Negativemg /dL [facility] UA Auto SS Ketones Auto test strip Ql (U) Negative Normal Negativemg /dL [facility] UA Auto SS Leukocyte esterase Auto test strip Ql (U) 75 Shaun/uL Shaun/uL Invalid Interpretation Code NegativeLe u/uL [facility] UA Auto SS Mucus Auto Ql (U) Negative Normal Negativegr aded/LPF [facility] UA Auto SS Nitrite Auto test strip Ql (U) 1+ mg/dL Invalid Interpretation Code Negativemg /dL [facility] UA Auto SS pH (U) 5.5 *NA* (01/27/24 9:22 PM) Invalid Interpretation Code 5.0 - 9.0 [facility] UA Auto SS Protein Ql (U) Negative Normal Negativemg /dL [facility] UA Auto SS Specific gravity (U) [Rel density] 1.005 *NA* (01/27/24 9:22 PM) Invalid Interpretation Code 1.005 - 1.030 [facility] UA Auto SS Urobilinogen (U) [Mass/Vol] Negative Normal Negativemg /dL [facility] UA Auto SS WBC Auto (Urine sed) [#/Area] 6-15 graded/HPF Invalid Interpretation Code 0-5graded/ HPF [facility] UA Auto SS URINALYSISOrdered By: Sukumar richardson on 01-27-2024 UA Spec Desc Catheter 6 (01/27/24 9:22 PM) Normal [facility] UA Auto SS Work Phone: Comment on above: Result Comment: Mini cath specimen eGFRon 01-27-2024 eGFR 44 mL/min/1.73 m2 Low >=[address] [facility] Comment on above: Order Comment: Order added by Discern Expert. Performed By: #### 1 [id number] #### [facility] [address] [place] [address] COAGULATIONOrdered By: Mala Szymanski on 12-30-2023 INR Coag (PPP) [Relative time] 2.15 {INR} Invalid Interpretation Code [facility] Auto Coag Comment on above: Interpretive Data: I NR results are specifically intended to assess patients stabilized on long-term Anticoagulation therapy suggested INR s Less Intensive Anticoagulation 2.0 3.0 Conventional Range 3.0 4.5 PT Coag (PPP) [Time] 24.3 s High 9.4 - 1 2.5 second(s) [facility] Comment on above: Interpretive Data: 1 5 days - 4 weeks 1 - 5 months 6 -11 months 1-5 years 6-10 years 11 -17 years Mean: 11.2 (9.5-12.6) Mean: 11.0 (9.7-12.8) Mean: 11.0 (9.8-13.0) Mean: 11.3 (9.9-13.4) Mean: 11.7 (10.0-14.6) Mean: 11.8 (10.0 - 14.1) Pediatric Reference ranges were obtained from a study by rosita Damian. prepared from 1437 samples obtained at 7 different centers using the same coagulation reagent and instrumentation as [facility]. Currently there are no coagulation studies available worldwide for children to 14 days, and no normal ranges. PTon 12-30-2023 INR Coag (PPP) [Relative time] 2.15 {INR} Invalid Interpretation Code [facility] Comment on above: Result Comment: INR results are specifically intended to assess patients stabilized on long-term Anticoagulation therapy suggested INR?s ?Less Intensive Anticoagulation? 2.0 ? 3.0 Conventional Range 3.0 ? 4.5 Performed By: #### 2 [id number] #### [facility] [address] [place] [address] PT Coag (PPP) [Time] 24.3 second(s) High 9.4-12.[address] [facility] Comment on above: Result Comment: 15 d ays - 4 weeks 1 - 5 months 6 -11 months 1-5 years 6-10 years 11 -17 years Mean: 11.2 (9.5-12.6) Mean: 11.0 (9.7-12.8) Mean: 11.0 (9.8-13.0) Mean: 11.3 (9.9-13.4) Mean: 11.7 (10.0-14.6) Mean: 11.8 (10.0 - 14.1) Pediatric Reference ranges were obtained from a study by Be Fair et al. prepared from 1437 samples obtained at 7 different centers using the same coagulation reagent and instrumentation as [facility]. Currently there are no coagulation studies available worldwide for children to 14 days, and no normal ranges. Performed By: #### 2 [id number] #### [facility] [address] [place] [address] Physician Orderon 12-12-2023 Physician Order [id number]#[id number] Normal [facility] U Protein/Creat RatioOrdered By: SYSTEM SYSTEM on 12-12-2023 Protein/Creatinine (U) [Ratio] 14.20 mg/gm Cr Normal .00-200.00 [facility] Comment on above: Performed By: #### 1 [id number] #### [facility] [address] [place] [address] U Creatinine 76.2 mg/dL Invalid Interpretation Code [facility] Comment on above: Performed By: #### 1 [id number] #### [facility] [address] [place] [address] Ur Total Protein 10.8 mg/dL Invalid Interpretation Code [facility] Comment on above: Performed By: #### 1 [id number] #### [facility] [address] [place] [address] CHEMISTRYOrdered By: [employer] on 12-11-2023 Albumin [Mass/Vol] 3.7 g/dL Normal 3.3 - 5.0 gm/dL [facility] Anion gap [Moles/Vol] 15 mmol/L Normal 6 - 16 mEq/L [facility] Calcium [Mass/Vol] 9.0 mg/dL Normal 8.9 - 11. 1 mg/dL [facility] Chloride [Moles/Vol] 98 mmol/L Low 101 - 1 11 mmol/L [facility] CO2 [Moles/Vol] 26 mmol/L Normal 21 - 31 mmol/L [facility] Creatinine [Mass/Vol] 1.3 mg/dL Normal 0.5 - 1.3 mg/dL [facility] eGFR 40 mL/min/1.73 m2 Low >=59mL/min /1.73 m2 [facility] Glucose [Mass/Vol] 251 mg/dL High 55 - 199 mg/dL [facility] Magnesium [Mass/Vol] 1.5 mg/dL Normal 1.3 - 2 .4 mg/dL [facility] Phosphate [Mass/Vol] 3.7 mg/dL Normal 1.9 - 4 .6 mg/dL [facility] Potassium [Moles/Vol] 3.8 mmol/L Normal 3.5 - 5.3 mmol/L [facility] Sodium [Moles/Vol] 135 mmol/L Normal 135 - 145 mmol/L [facility] Urea nitrogen [Mass/Vol] 18 mg/dL Normal 5 - 21 mg/dL [facility] Urea nitrogen/Creatinine [Mass ratio] 14 mg/mg Normal 10 - 20 [facility] COAGULATIONOrdered By: Remy Zimmer on 12-11-2023 INR Coag (PPP) [Relative time] 2.72 {INR} Invalid Interpretation Code [facility] Auto Coag Comment on above: Interpretive Data: I NR results are specifically intended to assess patients stabilized on long-term Anticoagulation therapy suggested INR s Less Intensive Anticoagulation 2.0 3.0 Conventional Range 3.0 4.5 PT Coag (PPP) [Time] 30.8 s High 9.4 - 1 2.5 second(s) [facility] Comment on above: Interpretive Data: 1 5 days - 4 weeks 1 - 5 months 6 -11 months 1-5 years 6-10 years 11 -17 years Mean: 11.2 (9.5-12.6) Mean: 11.0 (9.7-12.8) Mean: 11.0 (9.8-13.0) Mean: 11.3 (9.9-13.4) Mean: 11.7 (10.0-14.6) Mean: 11.8 (10.0 - 14.1) Pediatric Reference ranges were obtained from a study by corie Damian al. prepared from 1437 samples obtained at 7 different centers using the same coagulation reagent and instrumentation as [facility]. Currently there are no coagulation studies available worldwide for children to 14 days, and no normal ranges. Consent for Treatmenton 11-13 Consent for Treatment [id number] Normal [facility] HEMATOLOGYOrdered By: SYSTEM SYSTEM on 12-11-2023 Hematocrit (Bld) [Volume fraction] 42.8 % Normal 34.0 - 46.0 % [facility] Hemoglobin (Bld) [Mass/Vol] 13.9 g/dL Normal 12.0 - 16.0 gm/dL [facility] Hct & Hgbon 12-11-2023 Hematocrit (Bld) [Volume fraction] 42.8 % Normal 34.0-46.[address] [facility] Comment on above: Performed By: #### 1 [id number] #### [facility] [address] [place] [address] Hemoglobin (Bld) [Mass/Vol] 13.9 g/dL Normal 12.0-16.[address] [facility] Comment on above: Performed By: #### 1 [id number] #### [facility] [address] [place] [address] Magnesiumon 12-11-2023 Magnesium [Mass/Vol] 1.5 mg/dL Normal 1.3-2.4 [facility] Comment on above: Performed By: #### 2 [id number] #### [facility] [address] [place] [address] PTon 12-11-2023 INR Coag (PPP) [Relative time] 2.72 {INR} Invalid Interpretation Code [facility] Comment on above: Result Comment: INR results are specifically intended to assess patients stabilized on long-term Anticoagulation therapy suggested INR?s ?Less Intensive Anticoagulation? 2.0 ? 3.0 Conventional Range 3.0 ? 4.5 Performed By: #### 2 [id number] #### [facility] [address] [place] [address] PT Coag (PPP) [Time] 30.8 second(s) High 9.4-12.[address] [facility] Comment on above: Result Comment: 15 d ays - 4 weeks 1 - 5 months 6 -11 months 1-5 years 6-10 years 11 -17 years Mean: 11.2 (9.5-12.6) Mean: 11.0 (9.7-12.8) Mean: 11.0 (9.8-13.0) Mean: 11.3 (9.9-13.4) Mean: 11.7 (10.0-14.6) Mean: 11.8 (10.0 - 14.1) Pediatric Reference ranges were obtained from a study by Be Fair et al. prepared from 1437 samples obtained at 7 different centers using the same coagulation reagent and instrumentation as [facility]. Currently there are no coagulation studies available worldwide for children to 14 days, and no normal ranges. Performed By: #### 2 [id number] #### [facility] [address] [place] [address] Physician Orderon 12-11-2023 Physician Order [id number] F Normal [facility] Renal Panelon 12-11-2023 Albumin [Mass/Vol] 3.7 g/dL Normal 3.3-5.[address] [facility] Comment on above: Performed By: #### 1 [id number] #### [facility] [address] [place] [address] Anion gap [Moles/Vol] 15 mmol/L Normal 6-16 [facility] Comment on above: Performed By: #### 1 [id number] #### [facility] [address] [place] [address] Calcium [Mass/Vol] 9.0 mg/dL Normal 8.9-11.[address] [facility] Comment on above: Performed By: #### 1 [id number] #### [facility] [address] [place] [address] Chloride [Moles/Vol] 98 mmol/L Low 101-111 [facility] Comment on above: Performed By: #### 1 [id number] #### [facility] [address] [place] [address] CO2 [Moles/Vol] 26 mmol/L Normal 21-31 [facility] Comment on above: Performed By: #### 1 [id number] #### [facility] [address] [place] [address] Creatinine [Mass/Vol] 1.3 mg/dL Normal 0.5-1.3 [facility] Comment on above: Performed By: #### 1 [id number] #### [facility] [address] [place] [address] Glucose [Mass/Vol] 251 mg/dL High 55-[address] [facility] Comment on above: Performed By: #### 1 [id number] #### [facility] [address] [place] [address] Phosphate [Mass/Vol] 3.7 mg/dL Normal 1.9-4.6 [facility] Comment on above: Performed By: #### 1 [id number] #### [facility] [address] [place] [address] Potassium [Moles/Vol] 3.8 mmol/L Normal 3.5-5.3 [facility] Comment on above: Performed By: #### 1 [id number] #### [facility] [address] [place] [address] Sodium [Moles/Vol] 135 mmol/L Normal 135-[address] [facility] Comment on above: Performed By: #### 1 [id number] #### [facility] [address] [place] [address] Urea nitrogen [Mass/Vol] 18 mg/dL Normal 5-[address] [facility] Comment on above: Performed By: #### 1 [id number] #### [facility] [address] [place] [address] Urea nitrogen/Creatinine [Mass ratio] 14 No Units Normal 10-[address] [facility] Comment on above: Performed By: #### 1 [id number] #### [facility] [address] [place] [address] eGFRon 12-11-2023 eGFR 40 mL/min/1.73 m2 Low >=[address] [facility] Comment on above: Order Comment: Order added by Discern Expert. Performed By: #### 1 [id number] #### [facility] [address] [place] [address] COAGULATIONOrdered By: Anam Iniguez on 11-24-2023 INR Coag (PPP) [Relative time] 2.23 {INR} Invalid Interpretation Code [facility] Comment on above: Interpretive Data: I NR results are specifically intended to assess patients stabilized on long-term Anticoagulation therapy suggested INR s Less Intensive Anticoagulation 2.0 3.0 Conventional Range 3.0 4.5 PT Coag (PPP) [Time] 25.2 s High 9.4 - 1 2.5 second(s) [facility] Comment on above: Interpretive Data: 1 5 days - 4 weeks 1 - 5 months 6 -11 months 1 5 years 6 10 years 11 -17 years Mean: 11.2 (9.5 12.6) Mean: 11.0 (9.7 12.8) Mean: 11.0 (9.8 13.0) Mean: 11.3 (9.9 13.4) Mean: 11.7 (10.0 14.6) Mean: 11.8 (10.0 - 14.1) Pediatric Reference ranges were obtained from a study by roista Damian. prepared from 1437 samples obtained at 7 different centers using the same coagulation reagent and instrumentation as [facility]. Currently there are no coagulation studies available worldwide for children to 14 days, and no normal ranges. PTon 11-24-2023 INR Coag (PPP) [Relative time] 2.23 {INR} Invalid Interpretation Code [facility] Comment on above: Result Comment: INR results are specifically intended to assess patients stabilized on long-term Anticoagulation therapy suggested INR?s ?Less Intensive Anticoagulation? 2.0 ? 3.0 Conventional Range 3.0 ? 4.5 Performed By: #### 2 [id number] ####[facility] [address] [place] [address] PT Coag (PPP) [Time] 25.2 second(s) High 9.4-12.[address] [facility] Comment on above: Result Comment: 15 d ays - 4 weeks 1 - 5 months 6 -11 months 1 ? 5 years 6 ? 10 years 11 -17 years Mean: 11.2 (9.5 ? 12.6) Mean: 11.0 (9.7 ? 12.8) Mean: 11.0 (9.8 ? 13.0) Mean: 11.3 (9.9 ? 13.4) Mean: 11.7 (10.0 ? 14.6) Mean: 11.8 (10.0 - 14.1) Pediatric Reference ranges were obtained from a study by rosita Damian. prepared from 1437 samples obtained at 7 different centers using the same coagulation reagent and instrumentation as [facility]. Currently there are no coagulation studies available worldwide for children to 14 days, and no normal ranges. Performed By: #### 2 [id number] ####[facility] [address] [place] [address] XR Shoulder Complete Righton 11-06-2023 XR Shoulder Complete Right Exam Date/Time: 11/04/2023 10:40 EDT Reason for [...] No other significant abnormality. Ordering Provider: Apurva Tatum FINAL REPORT Dictated: 11/06/2023 1:27 pm Amor Mueller MD Signed (Electronic Signature): 11/06/2023 1:27 pm Signed by: Amor Mueller MD Transcribed by: NORM Technologist: ISABELLA Technical Comments Radiation Dose: Ka,r in mGy = na DAP = na Normal [facility] Consent for Treatmenton 10-13 Consent for Treatment [id number] Normal [facility] Physician Orderon 11-04-2023 Physician Order [id number]#[id number] Normal [facility] PTon 10-31-2023 INR Coag (PPP) [Relative time] 3.94 {INR} Invalid Interpretation Code [facility] Comment on above: Result Comment: INR results are specifically intended to assess patients stabilized on long-term Anticoagulation therapy suggested INR?s ?Less Intensive Anticoagulation? 2.0 ? 3.0 Conventional Range 3.0 ? 4.5 Performed By: #### 2 [id number] ####[facility] [address] [place] [address] PT Coag (PPP) [Time] 44.7 second(s) High 9.4-12.[address] [facility] Comment on above: Result Comment: 15 d ays - 4 weeks 1 - 5 months 6 -11 months 1-5 years 6-10 years 11 -17 years Mean: 11.2 (9.5-12.6) Mean: 11.0 (9.7-12.8) Mean: 11.0 (9.8-13.0) Mean: 11.3 (9.9-13.4) Mean: 11.7 (10.0-14.6) Mean: 11.8 (10.0 - 14.1) Pediatric Reference ranges were obtained from a study by rosita Damian. prepared from 1437 samples obtained at 7 different centers using the same coagulation reagent and instrumentation as [facility]. Currently there are no coagulation studies available worldwide for children to 14 days, and no normal ranges. Performed By: #### 2 [id number] ####[facility] [address] [place] [address] PTon 10-17-2023 INR Coag (PPP) [Relative time] 4.93 {INR} Invalid Interpretation Code [facility] Comment on above: Result Comment: INR results are specifically intended to assess patients stabilized on long-term Anticoagulation therapy suggested INR?s ?Less Intensive Anticoagulation? 2.0 ? 3.0 Conventional Range 3.0 ? 4.5 Performed By: #### 1 [id number] #### [facility] [address] [place] [address] PT Coag (PPP) [Time] 56.1 second(s) High 9.4-12.[address] [facility] Comment on above: Result Comment: 15 d ays - 4 weeks 1 - 5 months 6 -11 months 1 ? 5 years 6 ? 10 years 11 -17 years Mean: 11.2 (9.5 ? 12.6) Mean: 11.0 (9.7 ? 12.8) Mean: 11.0 (9.8 ? 13.0) Mean: 11.3 (9.9 ? 13.4) Mean: 11.7 (10.0 ? 14.6) Mean: 11.8 (10.0 - 14.1) Pediatric Reference ranges were obtained from a study by corie Damian al. prepared from 1437 samples obtained at 7 different centers using the same coagulation reagent and instrumentation as [facility]. Currently there are no coagulation studies available worldwide for children to 14 days, and no normal ranges. Performed By: #### 1 [id number] #### [facility] [address] [place] [address] PTon 10-03-2023 INR Coag (PPP) [Relative time] 3.80 {INR} Invalid Interpretation Code [facility] Comment on above: Result Comment: INR results are specifically intended to assess patients stabilized on long-term Anticoagulation therapy suggested INR?s ?Less Intensive Anticoagulation? 2.0 ? 3.0 Conventional Range 3.0 ? 4.5 Performed By: #### 2 [id number] ####[facility] [address] [place] [address] PT Coag (PPP) [Time] 43.1 second(s) High 9.4-12.[address] [facility] Comment on above: Result Comment: 15 d ays - 4 weeks 1 - 5 months 6 -11 months 1 ? 5 years 6 ? 10 years 11 -17 years Mean: 11.2 (9.5 ? 12.6) Mean: 11.0 (9.7 ? 12.8) Mean: 11.0 (9.8 ? 13.0) Mean: 11.3 (9.9 ? 13.4) Mean: 11.7 (10.0 ? 14.6) Mean: 11.8 (10.0 - 14.1) Pediatric Reference ranges were obtained from a study by Be Fair et al. prepared from 1437 samples obtained at 7 different centers using the same coagulation reagent and instrumentation as [facility]. Currently there are no coagulation studies available worldwide for children to 14 days, and no normal ranges. Performed By: #### 2 [id number] ####[facility] [address] [place] [address] No Panel Informationon 10-01 Radiology Study observation (narrative) [facility] Work Phone: [facility] Work Phone: PTon 09-19-2023 INR Coag (PPP) [Relative time] 1.69 {INR} Invalid Interpretation Code [facility] Comment on above: Result Comment: INR results are specifically intended to assess patients stabilized on long-term Anticoagulation therapy suggested INR?s ?Less Intensive Anticoagulation? 2.0 ? 3.0 Conventional Range 3.0 ? 4.5 Performed By: #### 1 [id number] #### [facility] [address] [place] [address] PT Coag (PPP) [Time] 19.0 second(s) High 9.4-12.[address] [facility] Comment on above: Result Comment: 15 d ays - 4 weeks 1 - 5 months 6 -11 months 1 ? 5 years 6 ? 10 years 11 -17 years Mean: 11.2 (9.5 ? 12.6) Mean: 11.0 (9.7 ? 12.8) Mean: 11.0 (9.8 ? 13.0) Mean: 11.3 (9.9 ? 13.4) Mean: 11.7 (10.0 ? 14.6) Mean: 11.8 (10.0 - 14.1) Pediatric Reference ranges were obtained from a study by corie Damian al. prepared from 1437 samples obtained at 7 different centers using the same coagulation reagent and instrumentation as [facility]. Currently there are no coagulation studies available worldwide for children to 14 days, and no normal ranges. Performed By: #### 1 [id number] #### [facility] [address] [place] [address] PTon 09-02-2023 INR Coag (PPP) [Relative time] 1.64 {INR} Invalid Interpretation Code [facility] Comment on above: Result Comment: INR results are specifically intended to assess patients stabilized on long-term Anticoagulation therapy suggested INR?s ?Less Intensive Anticoagulation? 2.0 ? 3.0 Conventional Range 3.0 ? 4.5 Performed By: #### 1 [id number] #### [facility] [address] [place] [address] PT Coag (PPP) [Time] 18.6 second(s) High 9.4-12.[address] [facility] Comment on above: Result Comment: 15 d ays - 4 weeks 1 - 5 months 6 -11 months 1-5 years 6-10 years 11 -17 years Mean: 11.2 (9.5-12.6) Mean: 11.0 (9.7-12.8) Mean: 11.0 (9.8-13.0) Mean: 11.3 (9.9-13.4) Mean: 11.7 (10.0-14.6) Mean: 11.8 (10.0 - 14.1) Pediatric Reference ranges were obtained from a study by corie Damian al. prepared from 1437 samples obtained at 7 different centers using the same coagulation reagent and instrumentation as [facility]. Currently there are no coagulation studies available worldwide for children to 14 days, and no normal ranges. Performed By: #### 1 [id number] #### [facility] [address] [place] [address] PTon 08-06-2023 INR Coag (PPP) [Relative time] 1.7 {INR} Invalid Interpretation Code [facility] Comment on above: Result Comment: INR results are specifically intended to assess patients stabilized on long-term Anticoagulation therapy suggested INR?s ?Less Intensive Anticoagulation? 2.0 ? 3.0 Conventional Range 3.0 ? 4.5 Performed By: #### 1 [id number] #### [facility] [address] [place] [address] PT Coag (PPP) [Time] 18.8 second(s) High 9.4-12.[address] [facility] Comment on above: Result Comment: 15 d ays - 4 weeks 1 - 5 months 6 -11 months 1 ? 5 years 6 ? 10 years 11 -17 years Mean: 11.2 (9.5 ? 12.6) Mean: 11.0 (9.7 ? 12.8) Mean: 11.0 (9.8 ? 13.0) Mean: 11.3 (9.9 ? 13.4) Mean: 11.7 (10.0 ? 14.6) Mean: 11.8 (10.0 - 14.1) Pediatric Reference ranges were obtained from a study by corie Damian al. prepared from 1437 samples obtained at 7 different centers using the same coagulation reagent and instrumentation as [facility]. Currently there are no coagulation studies available worldwide for children to 14 days, and no normal ranges. Performed By: #### 1 [id number] #### [facility] [address] [place] [address] Consent for Treatmenton Consent for Treatment [id number] Normal [facility] PTon 07-21-2023 INR Coag (PPP) [Relative time] 4.5 {INR} Invalid Interpretation Code [facility] Comment on above: Result Comment: INR results are specifically intended to assess patients stabilized on long-term Anticoagulation therapy suggested INR?s ?Less Intensive Anticoagulation? 2.0 ? 3.0 Conventional Range 3.0 ? 4.5 Performed By: #### 2 [id number] ####[facility] [address] [place] [address] PT Coag (PPP) [Time] 52.8 second(s) High 9.4-12.[address] [facility] Comment on above: Result Comment: 15 d ays - 4 weeks 1 - 5 months 6 -11 months 1 ? 5 years 6 ? 10 years 11 -17 years Mean: 11.2 (9.5 ? 12.6) Mean: 11.0 (9.7 ? 12.8) Mean: 11.0 (9.8 ? 13.0) Mean: 11.3 (9.9 ? 13.4) Mean: 11.7 (10.0 ? 14.6) Mean: 11.8 (10.0 - 14.1) Pediatric Reference ranges were obtained from a study by Be Fair et al. prepared from 1437 samples obtained at 7 different centers using the same coagulation reagent and instrumentation as [facility]. Currently there are no coagulation studies available worldwide for children to 14 days, and no normal ranges. Performed By: #### 2 [id number] ####[facility] [address] [place] [address] Physician Orderon 07-21-2023 Physician Order [id number]#[id number] Normal [facility] ECG 12 Leadon 06-27-2023 See scan [facility] Work Phone: No Panel Informationon 06-27 [facility] Work Phone: Radiology Study observation (narrative) [facility] Work Phone: COAGULATIONOrdered By: Daivd Guzman on 06-20-2023 INR Coag (PPP) [Relative time] 3.5 {INR} Invalid Interpretation Code [facility] Auto Co[facility] Comment on above: Interpretive Data: I NR results are specifically intended to assess patients stabilized on long-term Anticoagulation therapy suggested INR s Less Intensive Anticoagulation 2.0 3.0 Conventional Range 3.0 4.5 PT Coag (PPP) [Time] 41.2 s High 9.4 - 1 2.5 second(s) [facility] Comment on above: Interpretive Data: 1 5 days - 4 weeks 1 - 5 months 6 -11 months 1-5 years 6-10 years 11 -17 years Mean: 11.2 (9.5-12.6) Mean: 11.0 (9.7-12.8) Mean: 11.0 (9.8-13.0) Mean: 11.3 (9.9-13.4) Mean: 11.7 (10.0-14.6) Mean: 11.8 (10.0 - 14.1) Pediatric Reference ranges were obtained from a study by corie Damian al. prepared from 1437 samples obtained at 7 different centers using the same coagulation reagent and instrumentation as [facility]. Currently there are no coagulation studies available worldwide for children to 14 days, and no normal ranges. PTon 06-20-2023 INR Coag (PPP) [Relative time] 3.5 {INR} Invalid Interpretation Code [facility] Comment on above: Result Comment: INR results are specifically intended to assess patients stabilized on long-term Anticoagulation therapy suggested INR?s ?Less Intensive Anticoagulation? 2.0 ? 3.0 Conventional Range 3.0 ? 4.5 Performed By: #### 2 [id number] #### [facility] [address] [place] [address] PT Coag (PPP) [Time] 41.2 second(s) High 9.4-12.[address] [facility] Comment on above: Result Comment: 15 d ays - 4 weeks 1 - 5 months 6 -11 months 1-5 years 6-10 years 11 -17 years Mean: 11.2 (9.5-12.6) Mean: 11.0 (9.7-12.8) Mean: 11.0 (9.8-13.0) Mean: 11.3 (9.9-13.4) Mean: 11.7 (10.0-14.6) Mean: 11.8 (10.0 - 14.1) Pediatric Reference ranges were obtained from a study by corie Damian alAlejandro prepared from 1437 samples obtained at 7 different centers using the same coagulation reagent and instrumentation as [facility]. Currently there are no coagulation studies available worldwide for children to 14 days, and no normal ranges. Performed By: #### 2 [id number] #### [facility] [address] [place] [address] COAGULATIONOrdered By: Remy Zimmer on 05-23-2023 INR Coag (PPP) [Relative time] 2.2 {INR} Invalid Interpretation Code [facility] Auto Co[facility] Comment on above: Interpretive Data: I NR results are specifically intended to assess patients stabilized on long-term Anticoagulation therapy suggested INR s Less Intensive Anticoagulation 2.0 3.0 Conventional Range 3.0 4.5 PT Coag (PPP) [Time] 25.2 s High 9.4 - 1 2.5 second(s) [facility] Comment on above: Interpretive Data: 1 5 days - 4 weeks 1 - 5 months 6 -11 months 1 5 years 6 10 years 11 -17 years Mean: 11.2 (9.5 12.6) Mean: 11.0 (9.7 12.8) Mean: 11.0 (9.8 13.0) Mean: 11.3 (9.9 13.4) Mean: 11.7 (10.0 14.6) Mean: 11.8 (10.0 - 14.1) Pediatric Reference ranges were obtained from a study by corie Damian alAlejandro prepared from 1437 samples obtained at 7 different centers using the same coagulation reagent and instrumentation as [facility]. Currently there are no coagulation studies available worldwide for children to 14 days, and no normal ranges. Consent for Treatmenton 05-14 Consent for Treatment [id number] Normal [facility] Hct & Hgbon 05-23-2023 Hematocrit (Bld) [Volume fraction] 39.2 % Normal 34.0-46.[address] [facility] Comment on above: Performed By: #### 2 [id number] #### [facility] [address] [place] [address] Hemoglobin (Bld) [Mass/Vol] 12.5 g/dL Normal 12.0-16.[address] [facility] Comment on above: Performed By: #### 2 [id number] #### [facility] [address] [place] [address] Magnesiumon 05-23-2023 Magnesium [Mass/Vol] 1.7 mg/dL Normal 1.3-2.4 [facility] Comment on above: Performed By: #### 2 [id number] #### [facility] [address] [place] [address] PTon 05-23-2023 INR Coag (PPP) [Relative time] 2.2 {INR} Invalid Interpretation Code [facility] Comment on above: Result Comment: INR results are specifically intended to assess patients stabilized on long-term Anticoagulation therapy suggested INR?s ?Less Intensive Anticoagulation? 2.0 ? 3.0 Conventional Range 3.0 ? 4.5 Performed By: #### 2 [id number] #### [facility] [address] [place] [address] PT Coag (PPP) [Time] 25.2 second(s) High 9.4-12.[address] [facility] Comment on above: Result Comment: 15 d ays - 4 weeks 1 - 5 months 6 -11 months 1 ? 5 years 6 ? 10 years 11 -17 years Mean: 11.2 (9.5 ? 12.6) Mean: 11.0 (9.7 ? 12.8) Mean: 11.0 (9.8 ? 13.0) Mean: 11.3 (9.9 ? 13.4) Mean: 11.7 (10.0 ? 14.6) Mean: 11.8 (10.0 - 14.1) Pediatric Reference ranges were obtained from a study by corie Damian al. prepared from 1437 samples obtained at 7 different centers using the same coagulation reagent and instrumentation as [facility]. Currently there are no coagulation studies available worldwide for children to 14 days, and no normal ranges. Performed By: #### 2 [id number] #### [facility] [address] [place] [address] Physician Orderon 05-23-2023 Physician Order [id number] Normal [facility] Renal Panelon 05-23-2023 Albumin [Mass/Vol] 3.4 g/dL Normal 3.3-5.[address] [facility] Comment on above: Performed By: #### 2 [id number] #### [facility] [address] [place] [address] Anion gap [Moles/Vol] 13 mmol/L Normal 6-16 [facility] Comment on above: Performed By: #### 2 [id number] #### [facility] [address] [place] [address] Calcium [Mass/Vol] 9.2 mg/dL Normal 8.9-11.[address] [facility] Comment on above: Performed By: #### 2 [id number] #### [facility] [address] [place] [address] Chloride [Moles/Vol] 101 mmol/L Normal 101-111 [facility] Comment on above: Performed By: #### 2 [id number] #### [facility] [address] [place] [address] CO2 [Moles/Vol] 28 mmol/L Normal 21-31 [facility] Comment on above: Performed By: #### 2 [id number] #### [facility] [address] [place] [address] Creatinine [Mass/Vol] 1.1 mg/dL Normal 0.5-1.3 [facility] Comment on above: Performed By: #### 2 [id number] #### [facility] [address] [place] [address] Glucose [Mass/Vol] 169 mg/dL Normal 55-[address] [facility] Comment on above: Result Comment: If t his glucose result represents a fasting glucose, interpretation should refer to the following reference range: 55-99 mg/dL Performed By: #### 2 [id number] #### [facility] [address] [place] [address] Phosphate [Mass/Vol] 3.9 mg/dL Normal 1.9-4.6 [facility] Comment on above: Performed By: #### 2 [id number] #### [facility] [address] [place] [address] Potassium [Moles/Vol] 3.8 mmol/L Normal 3.5-5.3 [facility] Comment on above: Performed By: #### 2 [id number] #### [facility] [address] [place] [address] Sodium [Moles/Vol] 138 mmol/L Normal 135-[address] [facility] Comment on above: Performed By: #### 2 [id number] #### [facility] [address] [place] [address] Urea nitrogen [Mass/Vol] 26 mg/dL High 5-[address] [facility] Comment on above: Performed By: #### 2 [id number] #### [facility] [address] [place] [address] Urea nitrogen/Creatinine [Mass ratio] 24 No Units High 10-[address] [facility] Comment on above: Performed By: #### 2 [id number] #### [facility] [address] [place] [address] U Protein/Creat Ratioon 11-1 0 Albumin Elph (U) [Mass fraction] 14.2 mg/dL Invalid Interpretation Code [facility] Comment on above: Result Comment: The reference range and other method performance specifications have not been established for this test; results should be integrated into the clinical context for interpretation. Performed By: #### 1 [id number] #### [facility] [address] [place] [address] Creatinine (U) [Mass/Vol] 73.1 mg/dL Invalid Interpretation Code [facility] Comment on above: Result Comment: The reference range and other method performance specifications have not been established for this test; results should be integrated into the clinical context for interpretation. Performed By: #### 1 [id number] #### [facility] [address] [place] [address] U Prot/Creat Ratio 194.30 mg/gm Cr Normal .00-200.00 [facility] Comment on above: Performed By: #### 1 [id number] #### [facility] [address] [place] [address] eGFRon 05-23-2023 GFR/1.73 sq M.predicted among non-blacks MDRD (S/P/Bld) [Vol rate/Area] 50 mL/min/1.73 m2 Low >=[address] [facility] Comment on above: Order Comment: Order added by Discern Expert. Result Comment: Relocation Services Specialist ap kidney disease could be indicated at eGFR's of less than 60 mL/min/1.73m2. Kidney failure is indicated at less than 15 mL/min/1.73m2. Performed By: #### 2 [id number] #### [facility] [address] [place] [address] COAGULATIONOrdered By: Alice Khan on 05-08-2023 INR Coag (PPP) [Relative time] 2.2 {INR} Invalid Interpretation Code [facility] Comment on above: Interpretive Data: I NR results are specifically intended to assess patients stabilized on long-term Anticoagulation therapy suggested INR s Less Intensive Anticoagulation 2.0 3.0 Conventional Range 3.0 4.5 PT Coag (PPP) [Time] 25.2 s High 9.4 - 1 2.5 second(s) [facility] Comment on above: Interpretive Data: 1 5 days - 4 weeks 1 - 5 months 6 -11 months 1-5 years 6-10 years 11 -17 years Mean: 11.2 (9.5-12.6) Mean: 11.0 (9.7-12.8) Mean: 11.0 (9.8-13.0) Mean: 11.3 (9.9-13.4) Mean: 11.7 (10.0-14.6) Mean: 11.8 (10.0 - 14.1) Pediatric Reference ranges were obtained from a study by Be [place], et al. prepared from 1437 samples obtained at 7 different centers using the same coagulation reagent and instrumentation as [facility]. Currently there are no coagulation studies available worldwide for children to 14 days, and no normal ranges. CT Head or Brain w/o Maritza alvarez 05-08-2023 CT Head or Brain w/o Contrast Exam Date/Time: 05/08/2023 15:22 EDT Reason for [...] Sushil Armstrong MD Transcribed by: NORM Technologist: AO Normal [facility] Consent for Treatmenton 04-14 Consent for Treatment [id number]#[id number] Normal [facility] PTon 05-08-2023 INR Coag (PPP) [Relative time] 2.2 {INR} Invalid Interpretation Code [facility] Comment on above: Result Comment: INR results are specifically intended to assess patients stabilized on long-term Anticoagulation therapy suggested INR?s ?Less Intensive Anticoagulation? 2.0 ? 3.0 Conventional Range 3.0 ? 4.5 Performed By: #### 1 [id number] #### [facility] [address] [place] [address] PT Coag (PPP) [Time] 25.2 second(s) High 9.4-12.[address] [facility] Comment on above: Result Comment: 15 d ays - 4 weeks 1 - 5 months 6 -11 months 1-5 years 6-10 years 11 -17 years Mean: 11.2 (9.5-12.6) Mean: 11.0 (9.7-12.8) Mean: 11.0 (9.8-13.0) Mean: 11.3 (9.9-13.4) Mean: 11.7 (10.0-14.6) Mean: 11.8 (10.0 - 14.1) Pediatric Reference ranges were obtained from a study by Be Fair et al. prepared from 1437 samples obtained at 7 different centers using the same coagulation reagent and instrumentation as [facility]. Currently there are no coagulation studies available worldwide for children to 14 days, and no normal ranges. Performed By: #### 1 [id number] #### [facility] [address] [place] [address] Insurance Correspondenceon 1 Insurance Correspondence [id number] Normal [facility] Physician Orderon 04-28-2023 Physician Order [id number]#[id number] Normal [facility] PTon 04-26-2023 INR Coag (PPP) [Relative time] 3.0 {INR} Invalid Interpretation Code [facility] Comment on above: Result Comment: INR results are specifically intended to assess patients stabilized on long-term Anticoagulation therapy suggested INR?s ?Less Intensive Anticoagulation? 2.0 ? 3.0 Conventional Range 3.0 ? 4.5 Performed By: #### 2 [id number] ####[facility] [address] [place] [address] PT Coag (PPP) [Time] 34.8 second(s) High 9.4-12.[address] [facility] Comment on above: Result Comment: 15 d ays - 4 weeks 1 - 5 months 6 -11 months 1-5 years 6-10 years 11 -17 years Mean: 11.2 (9.5-12.6) Mean: 11.0 (9.7-12.8) Mean: 11.0 (9.8-13.0) Mean: 11.3 (9.9-13.4) Mean: 11.7 (10.0-14.6) Mean: 11.8 (10.0 - 14.1) Pediatric Reference ranges were obtained from a study by Be Fair et al. prepared from 1437 samples obtained at 7 different centers using the same coagulation reagent and instrumentation as [facility]. Currently there are no coagulation studies available worldwide for children to 14 days, and no normal ranges. Performed By: #### 2 [id number] ####[id number] [place] [address] C Urineon 03-29-2023 Bacteria identified Cx Nom (U) Microbiology PROCEDURE: Urine Culture [R1] SOURCE: U CleanCatch BODY SITE: COLLECTED DATE/TIME: 03/26/2023 14:37 EDT RECEIVED DATE/TIME: 03/27/2023 11:49 EDT START DATE/TIME: 03/27/2023 11:49 EDT FREE TEXT SOURCE: Jason ATKINS, Lavell Yepez. Jason ATKINS, Lavell Yepez. FINAL REPORTS Final Report [] Verified Date/Time: 03/29/2023 10:42 EDT <10,000 cfu/ml Mixed skin contaminants Mixed shravan (multiple species present) Performing Locations R1: This test was performed at: [facility], [address] [place] [address], [phone]- , , Normal [facility] Comment on above: Performed By: #### 2 [id number] ####[address] [address] Auto Diffon 03-26-2023 Basophils/100 WBC (Bld) 0.9 % Normal 0.0-2.0 [facility] Comment on above: Order Comment: Order Added by Discern Expert. Performed By: #### 2 [id number] #### [facility] [address] [place] [address] Basophils/Leukocytes Auto (Bld) [Pure # fraction] 0.1 E9/L Normal 0.0-0.[address] [facility] Comment on above: Order Comment: Order Added by Discern Expert. Performed By: #### 2 [id number] #### [facility] [address] [place] [address] Eosinophils/100 WBC (Bld) 0.6 % Normal 0.0-8.[address] [facility] Comment on above: Order Comment: Order Added by Discern Expert. Performed By: #### 2 [id number] #### [facility] [address] [place] [address] Eosinophils/Leukocytes Auto (Bld) [Pure # fraction] 0.1 E9/L Normal 0.0-0.[address] [facility] Comment on above: Order Comment: Order Added by Discern Expert. Performed By: #### 2 [id number] #### [facility] [address] [place] [address] 78290 Lymphocytes/100 WBC (Bld) 8.5 % Low 14.0-50.[address] [facility] Comment on above: Order Comment: Order Added by Discern Expert. Performed By: #### 2 [id number] #### [facility] [address] [place] [address] 04685 Lymphocytes/Leukocytes Auto (Bld) [Pure # fraction] 1.2 E9/L Normal 1.0-4.[address] [facility] Comment on above: Order Comment: Order Added by Discern Expert. Performed By: #### 2 [id number] #### [facility] [address] [place] [address] 82503 Monocytes/100 WBC (Bld) 5.7 % Normal 4.0-14.0 [facility] Comment on above: Order Comment: Order Added by Discern Expert. Performed By: #### 2 [id number] #### [facility] [address] [place] [address] 24773 Monocytes/Leukocytes Auto (Bld) [Pure # fraction] 0.8 E9/L Normal 0.2-1.[address] [facility] Comment on above: Order Comment: Order Added by Discern Expert. Performed By: #### 2 [id number] #### [facility] [address] [place] [address] Neutrophils/100 WBC (Bld) 84.3 % High 36.0-75.[address] [facility] Comment on above: Order Comment: Order Added by Discern Expert. Performed By: #### 2 [id number] #### [facility] [address] [place] [address] Neutrophils/Leukocytes Auto (Bld) [Pure # fraction] 12.2 E9/L High 2.0-7.[address] [facility] Comment on above: Order Comment: Order Added by Discern Expert. Performed By: #### 2 [id number] #### [facility] [address] [place] [address] 79432 CBC w/ Auto Diffon 3 Erythrocyte distribution width (RBC) [Ratio] 17.7 % High 10.9-14.[address] [facility] Comment on above: Performed By: #### 1 [id number] #### [facility] [address] [place] [address] Hematocrit (Bld) [Volume fraction] 40.2 % Normal 34.0-46.[address] [facility] Comment on above: Performed By: #### 1 [id number] #### [facility] [address] [place] [address] 79057 Hemoglobin (Bld) [Mass/Vol] 12.9 g/dL Normal 12.0-16.[address] [facility] Comment on above: Performed By: #### 1 [id number] #### [facility] [address] [place] [address] MCH (RBC) [Entitic mass] 25.1 pg Low 27.0-34.[address] [facility] Comment on above: Performed By: #### 1 [id number] #### [facility] [address] [place] [address] MCHC (RBC) [Mass/Vol] 32.2 g/dL Normal 31.4-36.0 [facility] Comment on above: Performed By: #### 1 [id number] #### [facility] [address] [place] [address] MCV (RBC) [Entitic vol] 78.1 fL Low 80.0-100.0 [facility] Comment on above: Performed By: #### 1 [id number] #### [facility] [address] [place] [address] Platelet mean volume (Bld) [Entitic vol] 9.2 fL Normal 6.4-10.[address] [facility] Comment on above: Performed By: #### 1 [id number] #### [facility] [address] [place] [address] Platelets (Bld) [#/Vol] 402.0 E9/L Normal 150. 0-500. [address] [facility] Comment on above: Performed By: #### 1 [id number] #### [facility] [address] [place] [address] RBC (Bld) [#/Vol] 5.1 E12/L Normal 4.3-5.[address] [facility] Comment on above: Performed By: #### 1 [id number] #### [facility] [address] [place] [address] 21422 WBC corrected for nucl RBC Auto (Bld) [#/Vol] 14.5 E9/L High 4.0-11.0 [facility] Comment on above: Performed By: #### 1 [id number] #### [facility] [address] [place] [address] CHEMISTRYOrdered By: SYSTEM SYSTEM on 03-26-2023 Albumin [Mass/Vol] 3.7 g/dL Normal 3.3 - 5.0 gm/dL [facility] Albumin/Globulin [Mass ratio] 1.0 {ratio} Low 1.1 - 2.2 [facility] ALP [Catalytic activity/Vol] 52 [iU]/d Normal 21 - 98 Int._Unit/ L [facility] ALT No additional P-5'-P [Catalytic activity/Vol] 19 [iU]/d Normal 6 - 46 Int._Unit/ L [facility] Anion gap [Moles/Vol] 14 mmol/L Normal 6 - 16 mEq/L [facility] AST [Catalytic activity/Vol] 25 [iU]/d Normal 5 - 43 Int._Unit/ L [facility] Bilirubin [Mass/Vol] 0.5 mg/dL Normal 0.0 - 1 .1 mg/dL [facility] Calcium [Mass/Vol] 9.7 mg/dL Normal 8.9 - 11. 1 mg/dL [facility] Chloride [Moles/Vol] 95 mmol/L Low 101 - 1 11 mmol/L [facility] CO2 [Moles/Vol] 27 mmol/L Normal 21 - 31 mmol/L [facility] Creatinine [Mass/Vol] 1.7 mg/dL High 0.5 - 1.3 mg/dL [facility] GFR/1.73 sq M.predicted among non-blacks MDRD (S/P/Bld) [Vol rate/Area] 29 mL/min/1.73 m2 Low >=59mL/min /1.73 m2 [facility] Chem S Globulin (S) [Mass/Vol] 3.6 g/dL Normal 1.4 - 4.0 gm/dL [facility] Glucose [Mass/Vol] 218 mg/dL High 55 - 199 mg/dL [facility] Potassium [Moles/Vol] 3.8 mmol/L Normal 3.5 - 5.3 mmol/L [facility] Protein [Mass/Vol] 7.3 g/dL Normal 6.0 - 7.8 gm/dL [facility] Sodium [Moles/Vol] 132 mmol/L Low 135 - 145 mmol/L [facility] Urea nitrogen [Mass/Vol] 38 mg/dL High 5 - 21 mg/dL [facility] Urea nitrogen/Creatinine [Mass ratio] 22 mg/mg High 10 - 20 [facility] CMPon 03-26-2023 Albumin [Mass/Vol] 3.7 g/dL Normal 3.3-5.[address] [facility] Comment on above: Performed By: #### 2 [id number] #### [facility] [address] [place] [address] Albumin/Globulin (S) [Mass conc ratio] 1.0 Low 1.1-2.[address] [facility] Comment on above: Performed By: #### 2 [id number] #### [facility] [address] [place] [address] ALP [Catalytic activity/Vol] 52 Int._Unit/L Normal 21-[address] [facility] Comment on above: Performed By: #### 2 [id number] #### [facility] [address] [place] [address] ALT No additional P-5'-P [Catalytic activity/Vol] 19 Int._Unit/L Normal 6-[address] [facility] Comment on above: Performed By: #### 2 [id number] #### [facility] [address] [place] [address] Anion gap [Moles/Vol] 14 mmol/L Normal 6-16 [facility] Comment on above: Performed By: #### 2 [id number] #### [facility] [address] [place] [address] AST [Catalytic activity/Vol] 25 Int._Unit/L Normal 5-[address] [facility] Comment on above: Performed By: #### 2 [id number] #### [facility] [address] [place] [address] Bilirubin [Mass/Vol] 0.5 mg/dL Normal 0.0-1.1 [facility] Comment on above: Performed By: #### 2 [id number] #### [facility] [address] [place] [address] Calcium [Mass/Vol] 9.7 mg/dL Normal 8.9-11.[address] [facility] Comment on above: Performed By: #### 2 [id number] #### [facility] [address] [place] [address] Chloride [Moles/Vol] 95 mmol/L Low 101-111 [facility] Comment on above: Performed By: #### 2 [id number] #### [facility] [address] [place] [address] CO2 [Moles/Vol] 27 mmol/L Normal 21-31 [facility] Comment on above: Performed By: #### 2 [id number] #### [facility] [address] [place] [address] Creatinine [Mass/Vol] 1.7 mg/dL High 0.5-1.3 [facility] Comment on above: Performed By: #### 2 [id number] #### [facility] [address] [place] [address] Globulin (S) [Mass/Vol] 3.6 g/dL Normal 1.4-4.0 [facility] Comment on above: Performed By: #### 2 [id number] #### [facility] [address] [place] [address] Glucose [Mass/Vol] 218 mg/dL High 55-[address] [facility] Comment on above: Result Comment: If t his glucose result represents a fasting glucose, interpretation should refer to the following reference range: 55-99 mg/dL Performed By: #### 2 [id number] #### [facility] [address] [place] [address] Potassium [Moles/Vol] 3.8 mmol/L Normal 3.5-5.3 [facility] Comment on above: Performed By: #### 2 [id number] #### [facility] [address] [place] [address] Protein [Mass/Vol] 7.3 g/dL Normal 6.0-7.[address] [facility] Comment on above: Performed By: #### 2 [id number] #### [facility] [address] [place] [address] Sodium [Moles/Vol] 132 mmol/L Low 135-[address] [facility] Comment on above: Performed By: #### 2 [id number] #### [facility] [address] [place] [address] Urea nitrogen [Mass/Vol] 38 mg/dL High 5-[address] [facility] Comment on above: Performed By: #### 2 [id number] #### [facility] [address] [place] [address] Urea nitrogen/Creatinine [Mass ratio] 22 No Units High 10-[address] [facility] Comment on above: Performed By: #### 2 [id number] #### [facility] [address] [place] [address] Consent for Treatmenton 03-14 Consent for Treatment [id number] [facility] Family Medicine Office/Clini c Noteon 03-26-2023 Family Medicine Office/Clinic Note Chief Complaint UTI HPI Staff 83 yr old female here with caregiver for possible UTI. Pt is very weak/fatigue and has fallen today and yesterday. Frequency- yes Urgency- yes Small volume void- yes Dysuria- no Pressure- no Back pain- no Nocturia- yes Fever/chills- no Nausea/vomiting- no UTI or other reason for antbx's last 30 days- no History of Present Illness I have reviewed and verified the staff HPI to be accurate for this encounter. Portions of this record have been created with voice recognition software. Occasional wrong-word or ?[id number]? substitutions may have occurred due to the inherent limitations of voice recognition software. 83 yo female with history of A-fib with pacemaker, diabetes, chronic kidney disease, hyperlipidemia, hypertension presents today with cc of possible UTI. Pt states she is very weak, and has fallen once today and once yesterday. Patient presents with family friend Edmundo who stays with patient is on Friday she states. Patient lives at home alone and has family that live close by in [place] in which they are always in and out she has people that stay with her during the day. Patient does note that she has a life alert but has not required this in the past 2 days states yesterday when she fell at home she states her grandson helped pick her up. She denies any head injury loss of consciousness. She denies any back or neck pain. She states today she fell again in which friend Edmundo who is with her states that she was able to get her up. She states she fell down directly on her back. Patient denies any dizziness or lightheadedness she denies any chest pain shortness of breath or difficulty breathing. Patient complains of some generalized weakness. Family had concern for urinary tract infection as patient has had them in the past which caused weakness. Patient does note urinary urgency frequency and nocturia. She denies dysuria hematuria low back pain abdominal pain nausea vomiting or diarrhea. She denies any fever chills denies any upper respiratory symptoms such as cough nasal congestion rhinorrhea ear pain or sore throat. Patient denies any numbness or tingling of extremities denies any vision changes. Patient does currently take a baby aspirin daily in addition to warfarin for history of A-fib. She denies head injury or loss of consciousness afternoon or no which friend Edmundo states it was a witnessed fall she did not hit her head. Again patient denies neck pain back pain. Denies any pain in the extremities. They have no other concerns at this time. Review of Systems PHQ Score Initial Depression Screen Score: 0 ROS negative unless otherwise stated in HPI. Physical Exam Vitals & Measurements T: 36.5 ?C(Oral) HR: 77(Peripheral) BP: 138/78 SpO2: 99% HT: 64 in HT: 162 cm WT: 52 kg WT: 114.4 lb BMI: 19.81 General: Frail elderly female present with friend Edmundo today, no acute distress Eyes: Bilateral conjunctival within normal limits no injection Ears: not assessed Head: No hematomas no pain palpation over the scalp or facial bones. No deformities or crepitus. No acute lacerations abrasions lesions. Nose: No deformity, discharge, inflammation, or lesions Mouth: Moist mucous membrane. No tonsillar erythema or exudate. Normal oropharynx and posterior oropharynx. No signs of peritonsillar abscess no trismus or drooling. Neck: no adenopathy normal alignment of the cervical spine. No localized cervical spine or paraspinal tenderness. No focal deficits. No step-offs or deformities. Neck is supple patient has normal range of motion of the neck. Lungs: Lung sounds are clear bilaterally. No wheezing rhonchi or crackles on exam. Cardio: S1, S2, regular rhythm. No murmurs gallops or rubs. Abdomen: Bowel sounds are present x4 quadrants. Abdomen is soft, nontender, nondistended. No rigidity rebound or guarding on exam. Musculoskeletal: No deformity or scoliosis noted. Normal range of motion. Joints normal. No erythema, edema, effusion, or ecchymosis normal alignment of the spinal column no localized thoracic or lumbar spine tenderness no paraspinal tenderness. No CVA tenderness. No rashes lacerations abrasions lesions or bruising. No focal deficits. Extremity: Patient has strong radial and pedal pulses with brisk capillary refill bilaterally. No lower extremity edema or pedal edema. No calf tenderness. Negative Homans' sign bilaterally. No deformities or crepitus no acute bruising lacerations abrasions or lesions of the upper or lower extremities. Neurologic: not assessed Skin: not assessed Mental Status: Alert and oriented x3. Normal mood and affect Assessment/Plan Patient was initially triaged in the waiting area and family was persistent to be evaluated for UTI here in urgent care setting which she was told with her falls over the past 2 days that would benefit patient to seek emergency department evaluation for weakness. We are happy to see patient for UTI but she may still need emergency departmen (more content not included)... Normal [facility] Comment on above: Result Comment: Elec tronically Signed By: Jason ATKINS, Lavell Ziegler\.br\Date and Time Signed: 03/26/23 14:29 EDT HEMATOLOGYOrdered By: SYSTEM SYSTEM on 03-26-2023 Basophils/100 WBC (Bld) 0.9 % Normal 0.0 - 2.0 % [facility]eAutoSS Basophils/Leukocytes Auto (Bld) [Pure # fraction] 0.1 E9/L Normal 0.0 - 0.2 E9/L [facility] Eosinophils/100 WBC (Bld) 0.6 % Normal 0.0 - 8.0 % [facility] Eosinophils/Leukocytes Auto (Bld) [Pure # fraction] 0.1 E9/L Normal 0.0 - 0.5 E9/L [facility] Lymphocytes/100 WBC (Bld) 8.5 % Low 14.0 - 50.0 % [facility] Lymphocytes/Leukocytes Auto (Bld) [Pure # fraction] 1.2 E9/L Normal 1.0 - 4.0 E9/L [facility] Monocytes/100 WBC (Bld) 5.7 % Normal 4.0 - 14.0 % [facility] Monocytes/Leukocytes Auto (Bld) [Pure # fraction] 0.8 E9/L Normal 0.2 - 1.0 E9/L [facility] Neutrophils/100 WBC (Bld) 84.3 % High 36.0 - 75.0 % [facility] Neutrophils/Leukocytes Auto (Bld) [Pure # fraction] 12.2 E9/L High 2.0 - 7.5 E9/L [facility] HEMATOLOGYOrdered By: Alyssa Sal on 03-26-2023 Erythrocyte distribution width (RBC) [Ratio] 17.7 % High 10.9 - 14.2 % [facility] Hematocrit (Bld) [Volume fraction] 40.2 % Normal 34.0 - 46.0 % [facility] Hemoglobin (Bld) [Mass/Vol] 12.9 g/dL Normal 12.0 - 16.0 gm/dL [facility] MCH (RBC) [Entitic mass] 25.1 pg Low 27.0 - 34.0 pg [facility] MCHC (RBC) [Mass/Vol] 32.2 g/dL Normal 31.4 - 36.0 gm/dL [facility] MCV (RBC) [Entitic vol] 78.1 fL Low 80.0 - 100.0 fL [facility] Platelet mean volume (Bld) [Entitic vol] 9.2 fL Normal 6.4 - 10.8 fL [facility] Platelets (Bld) [#/Vol] 402.0 E9/L Normal 150. 0 - 500.0 E9/L [facility] RBC (Bld) [#/Vol] 5.1 E12/L Normal 4.3 - 5.9 E12/L [facility] WBC corrected for nucl RBC Auto (Bld) [#/Vol] 14.5 E9/L High 4.0 - 11.0 E9/L [facility] Patient Educationon 03-26-20 Patient Education Caregiving Fall Prevention in the Home, Adult Falls can cause injuries and affect people of all ages. There are many simple things that you can do to make your home safe and to help prevent falls. Ask for help when making these changes, if needed. What actions can I take to prevent falls? General instructions ? Use good lighting in all rooms. Replace any light bulbs that burn out, turn on lights if it is dark, and use night-lights. ? Place frequently used items in ywwx-dd-ejmbo places. Lower the shelves around your home if necessary. ? Set up furniture so that there are clear paths around it. Avoid moving your furniture around. ? Remove throw rugs and other tripping hazards from the floor. ? Avoid walking on wet floors. ? Fix any uneven floor surfaces. ? Add color or contrast paint or tape to grab bars and handrails in your home. Place contrasting color strips on the first and last steps of staircases. ? When you use a stepladder, make sure that it is completely opened and that the sides and supports are firmly locked. Have someone hold the ladder while you are using it. Do not climb a closed stepladder. ? Know where your pets are when moving through your home. What can I do in the bathroom? ? Keep the floor dry. Immediately clean up any water that is on the floor. ? Remove soap buildup in the tub or shower regularly. ? Use nonskid mats or decals on the floor of the tub or shower. ? Attach bath mats securely with double-sided, nonslip rug tape. ? If you need to sit down while you are in the shower, use a plastic, nonslip stool. ? Install grab bars by the toilet and in the tub and shower. Do not use towel bars as grab bars. What can I do in the bedroom? ? Make sure that a bedside light is easy to reach. ? Do not use oversized bedding that reaches the floor. ? Have a firm chair that has side arms to use for getting dressed. What can I do in the kitchen? ? Clean up any spills right away. ? If you need to reach for something above you, use a sturdy step stool that has a grab bar. ? Keep electrical cables out of the way. ? Do not use floor hebrew or wax that makes floors slippery. If you must use wax, make sure that it is non-skid floor wax. What can I do with my stairs? ? Do not leave any items on the stairs. ? Make sure that you have a light switch at the top and the bottom of the stairs. Have them installed if you do not have them. ? Make sure that there are handrails on both sides of the stairs. Fix handrails that are broken or loose. Make sure that handrails are as long as the staircases. ? Install non-slip stair treads on all stairs in your home. ? Avoid having throw rugs at the top or bottom of stairs, or secure the rugs with carpet tape to prevent them from moving. ? Choose a carpet design that does not hide the edge of steps on the stairs. ? Check any carpeting to make sure that it is firmly attached to the stairs. Fix any carpet that is loose or worn. What can I do on the outside of my home? ? Use bright outdoor lighting. ? Regularly repair the edges of walkways and driveways and fix any cracks. ? Remove high doorway thresholds. ? Trim any shrubbery on the main path into your home. ? Regularly check that handrails are securely fastened and in good repair. Both sides of all steps should have handrails. ? Install guardrails along the edges of any raised decks or porches. ? Clear walkways of debris and clutter, including tools and rocks. ? Have leaves, snow, and ice cleared regularly. ? Use sand or salt on walkways during winter months. ? In the garage, clean up any spills right away, including grease or oil spills. What other actions can I take? ? Wear closed-toe shoes that fit well and support your feet. Wear shoes that have rubber soles or low heels. ? Use mobility aids as needed, such as canes, walkers, scooters, and crutches. ? Review your medicines with your health care provider. Some medicines can cause dizziness or changes in blood pressure, which increase your risk of falling. Talk with your health care provider about other ways that you can decrease your risk of falls. This may include working with a physical therapist or regional sales trainer to improve your strength, balance, and endurance. Where to find more information ? Centers for Disease Control and Prevention, [place]: www.cdc.gov ? National [place] on Aging: www.royal.nih.gov Contact a health care provider if: ? You are afraid of falling at home. ? You feel weak, drowsy, or dizzy at home. ? You fall at home. Summary ? There are many simple things that you can do to make your home safe and to help prevent falls. ? Ways to make your home safe include removing tripping hazards and installing grab bars in the bathroom. ? Ask for help when making these changes in your home. This information is not intended to replace advice given to you by your health ca (more content not included)... Normal [facility] Physician Orderon 03-26-2023 Physician Order [id number] [facility] eGFRon 03-26-2023 GFR/1.73 sq M.predicted among non-blacks MDRD (S/P/Bld) [Vol rate/Area] 29 mL/min/1.73 m2 Low >=[address] [facility] Comment on above: Order Comment: Order added by Discern Expert. Result Comment: Relocation Services Specialist ap kidney disease could be indicated at eGFR's of less than 60 mL/min/1.73m2. Kidney failure is indicated at less than 15 mL/min/1.73m2. Performed By: #### 2 [id number] #### [facility] [address] [place] [address] Laboratory - Coagulationon 0 03-14-2023 INR Coag (Bld) [Relative time] 1.6 {INR} [facility] DO Work Phone: Comment on above: INR results are spec ifically intended to assess patients stabilized on long-term Anticoagulation therapy suggested INR?s ?Less Intensive Anticoagulation? 2.0 ? 3.0Conventional Range 3.0 ? 4.5 No Panel Informationon 03-14 17.8 {second(s)} above high threshold 9.4-12.5 [facility] [employer] [facility] DO Work Phone: Comment on above: 15 days - 4 weeks 1 - 5 months 6 -11 months 1 ? 5 years 6 ? 10 years 11 -17 years Mean: 11.2 (9.5 ? 12.6) Mean: 11.0 (9.7 ? 12.8) Mean: 11.0 (9.8 ? 13.0) Mean: 11.3 (9.9 ? 13.4) Mean: 11.7 (10.0 ? 14.6) Mean: 11.8 (10.0 - 14.1) Pediatric Reference ranges were obtained from a study by corie Damian alAlejandro prepared from 1437 samples obtained at 7 different centers using the same coagulation reagent and instrumentation as [facility]. Currently there are no coagulation studies available worldwide for children to 14 days, and no normal ranges. PTon 03-14-2023 INR Coag (PPP) [Relative time] 1.6 {INR} Invalid Interpretation Code [facility] Comment on above: Result Comment: INR results are specifically intended to assess patients stabilized on long-term Anticoagulation therapy suggested INR?s ?Less Intensive Anticoagulation? 2.0 ? 3.0 Conventional Range 3.0 ? 4.5 Performed By: #### 2 [id number] ####[facility] [address] [place] [address] PT Coag (PPP) [Time] 17.8 second(s) High 9.4-12.[address] [facility] Comment on above: Result Comment: 15 d ays - 4 weeks 1 - 5 months 6 -11 months 1 ? 5 years 6 ? 10 years 11 -17 years Mean: 11.2 (9.5 ? 12.6) Mean: 11.0 (9.7 ? 12.8) Mean: 11.0 (9.8 ? 13.0) Mean: 11.3 (9.9 ? 13.4) Mean: 11.7 (10.0 ? 14.6) Mean: 11.8 (10.0 - 14.1) Pediatric Reference ranges were obtained from a study by corie Damian al. prepared from 1437 samples obtained at 7 different centers using the same coagulation reagent and instrumentation as [facility]. Currently there are no coagulation studies available worldwide for children to 14 days, and no normal ranges. Performed By: #### 2 [id number] ####[facility] [address] [place] [address] HIPAA Privacy Documentson HIPAA Privacy Documents [id number]#[id number]:[address] [facility] PTH Intacton 01-24-2023 Parathyrin.intact [Mass/Vol] 24 pg/mL Invalid Interpretation Code [facility] Comment on above: Result Comment: Perf ormed at: [facility] [address] [id number] PhD Laron Lassiter Performed By: #### 2 [id number] #### [facility] Laboratory [address] [place] [address] Physician Orderon 01-23-2023 Physician Order [id number]#[id number]:1 [address] [facility] U Protein/Creat Ratioon 01-11 Albumin Elph (U) [Mass fraction] 6.8 mg/dL Invalid Interpretation Code [facility] Comment on above: Result Comment: The reference range and other method performance specifications have not been established for this test; results should be integrated into the clinical context for interpretation. Performed By: #### 1 [id number] #### [facility] Laboratory [address] [place] [address] Creatinine (U) [Mass/Vol] 108.9 mg/dL Invalid Interpretation Code [facility] Comment on above: Result Comment: The reference range and other method performance specifications have not been established for this test; results should be integrated into the clinical context for interpretation. Performed By: #### 1 [id number] #### [facility] Laboratory [address] [place] [address] U Prot/Creat Ratio 62.40 mg/gm Cr Normal .00-200.00 [facility] Comment on above: Performed By: #### 1 [id number] #### [facility] Laboratory [address] [place] [address] CHEMISTRYOrdered By: SYSTEM SYSTEM on 01-22-2023 25-hydroxyvitamin D3 [Mass/Vol] 75.9 ng/mL Normal 30.0 - 100.0 ng/mL [facility] Remisol Albumin [Mass/Vol] 3.5 g/dL Normal 3.3 - 5.0 gm/dL [facility] Remisol Anion gap [Moles/Vol] 18 mmol/L High 6 - 16 mEq/L [facility]isol Calcium [Mass/Vol] 9.0 mg/dL Normal 8.9 - 11. 1 mg/dL [facility] Chloride [Moles/Vol] 96 mmol/L Low 101 - 1 11 mmol/L [facility] CO2 [Moles/Vol] 26 mmol/L Normal 21 - 31 mmol/L [facility] Creatinine [Mass/Vol] 1.8 mg/dL High 0.5 - 1.3 mg/dL [facility] GFR/1.73 sq M.predicted among non-blacks MDRD (S/P/Bld) [Vol rate/Area] 28 mL/min/1.73 m2 Low >=59mL/min /1.73 m2 [facility] Chem S Glucose [Mass/Vol] 135 mg/dL Normal 55 - 199 mg/dL [facility] Phosphate [Mass/Vol] 3.5 mg/dL Normal 1.9 - 4 .6 mg/dL [facility] Potassium [Moles/Vol] 3.9 mmol/L Normal 3.5 - 5.3 mmol/L [facility] Sodium [Moles/Vol] 136 mmol/L Normal 135 - 145 mmol/L [facility] Urea nitrogen [Mass/Vol] 28 mg/dL High 5 - 21 mg/dL [facility] Urea nitrogen/Creatinine [Mass ratio] 16 mg/mg Normal 10 - 20 [facility] Consent for Treatmenton 01-11 Consent for Treatment [id number]#[id number]:[address] [facility] HEMATOLOGYOrdered By: Mike Willett on 01-22-2023 Hematocrit (Bld) [Volume fraction] 35.9 % Normal 34.0 - 46.0 % [facility] HemeAutoSS Hemoglobin (Bld) [Mass/Vol] 11.6 g/dL Low 12.0 - 16.0 gm/dL [facility] HemeAutoSS Hct & Hgbon 01-22-2023 Hematocrit (Bld) [Volume fraction] 35.9 % Normal 34.0-46.[address] [facility] Comment on above: Performed By: #### 1 [id number], [id number], [id number], [id number] ####[facility] [address] [place] [address] Hemoglobin (Bld) [Mass/Vol] 11.6 g/dL Low 12.0-16.[address] [facility] Comment on above: Performed By: #### 1 [id number], [id number], [id number], [id number] ####[facility] [address] [place] [address] Laboratory - Coagulationon 0 01-22-2023 INR Coag (Bld) [Relative time] 2.8 {INR} [facility] DO Work Phone: Comment on above: INR results are spec ifically intended to assess patients stabilized on long-term Anticoagulation therapy suggested INR?s ?Less Intensive Anticoagulation? 2.0 ? 3.0Conventional Range 3.0 ? 4.5 No Panel Informationon 01-22 32.2 {second(s)} above high threshold 9.4-12.5 [facility] DO Work Phone: Comment on above: 15 days - 4 weeks 1 - 5 months 6 -11 months 1-5 years 6-10 years 11 -17 years Mean: 11.2 (9.5-12.6) Mean: 11.0 (9.7-12.8) Mean: 11.0 (9.8-13.0) Mean: 11.3 (9.9-13.4) Mean: 11.7 (10.0-14.6) Mean: 11.8 (10.0 - 14.1) Pediatric Reference ranges were obtained from a study by Be Fair et al. prepared from 1437 samples obtained at 7 different centers using the same coagulation reagent and instrumentation as [facility]. Currently there are no coagulation studies available worldwide for children to 14 days, and no normal ranges. PTon 01-22-2023 INR Coag (PPP) [Relative time] 2.8 {INR} Invalid Interpretation Code [facility] Comment on above: Result Comment: INR results are specifically intended to assess patients stabilized on long-term Anticoagulation therapy suggested INR?s ?Less Intensive Anticoagulation? 2.0 ? 3.0 Conventional Range 3.0 ? 4.5 Performed By: #### 2 [id number] #### [facility] Laboratory [address] [place] [address] PT Coag (PPP) [Time] 32.2 second(s) High 9.4-12.[address] [facility] Comment on above: Result Comment: 15 d ays - 4 weeks 1 - 5 months 6 -11 months 1-5 years 6-10 years 11 -17 years Mean: 11.2 (9.5-12.6) Mean: 11.0 (9.7-12.8) Mean: 11.0 (9.8-13.0) Mean: 11.3 (9.9-13.4) Mean: 11.7 (10.0-14.6) Mean: 11.8 (10.0 - 14.1) Pediatric Reference ranges were obtained from a study by corie Damian al. prepared from 1437 samples obtained at 7 different centers using the same coagulation reagent and instrumentation as [facility]. Currently there are no coagulation studies available worldwide for children to 14 days, and no normal ranges. Performed By: #### 2 [id number] #### [facility] Laboratory [address] [place] [address] Physician Orderon 01-22-2023 Physician Order [id number]:1 [address] [facility] Renal Panelon 01-22-2023 Albumin [Mass/Vol] 3.5 g/dL Normal 3.3-5.[address] [facility] Comment on above: Performed By: #### 1 [id number], [id number], [id number], [id number] ####[facility] [address] [place] [address] Anion gap [Moles/Vol] 18 mmol/L High 6-16 [facility] Comment on above: Performed By: #### 1 [id number], [id number], [id number], [id number] ####[facility] [address] [place] [address] Calcium [Mass/Vol] 9.0 mg/dL Normal 8.9-11.[address] [facility] Comment on above: Performed By: #### 1 [id number], [id number], [id number], [id number] ####[facility] [address] [place] [address] Chloride [Moles/Vol] 96 mmol/L Low 101-111 [facility] Comment on above: Performed By: #### 1 [id number], [id number], 21430581, [id number] ####[facility] [address] [place] [address] CO2 [Moles/Vol] 26 mmol/L Normal 21-31 [facility] Comment on above: Performed By: #### 1 [id number], [id number], 45342546, [id number] ####[facility] [address] [place] [address] Creatinine [Mass/Vol] 1.8 mg/dL High 0.5-1.3 [facility] Comment on above: Performed By: #### 1 [id number], [id number], [id number], [id number] ####[facility] [address] [place] [address] Glucose [Mass/Vol] 135 mg/dL Normal 55-[address] [facility] Comment on above: Result Comment: If t his glucose result represents a fasting glucose, interpretation should refer to the following reference range: 55-99 mg/dL Performed By: #### 1 [id number], [id number], [id number], [id number] ####[facility] [address] [place] [address] Phosphate [Mass/Vol] 3.5 mg/dL Normal 1.9-4.6 [facility] Comment on above: Performed By: #### 1 [id number], [id number], 76221530, [id number] ####[facility] [address] [place] [address] Potassium [Moles/Vol] 3.9 mmol/L Normal 3.5-5.3 [facility] Comment on above: Performed By: #### 1 [id number], [id number], [id number], [id number] ####[facility] [address] [place] [address] Sodium [Moles/Vol] 136 mmol/L Normal 135-[address] [facility] Comment on above: Performed By: #### 1 [id number], 49223974, 63677426, [id number] ####[facility] [address] [place] [address] Urea nitrogen [Mass/Vol] 28 mg/dL High 5-[address] [facility] Comment on above: Performed By: #### 1 [id number], 24506956, 95630931, [id number] ####[facility] [address] [place] [address] Urea nitrogen/Creatinine [Mass ratio] 16 No Units Normal 10-[address] [facility] Comment on above: Performed By: #### 1 [id number], 14712980, [id number], [id number] ####[facility] [address] [place] [address] Vitamin D 25 Hydroxyon 01-22 25-hydroxyvitamin D3 [Mass/Vol] 75.9 ng/mL Normal 30.0-100.[address] [facility] Comment on above: Result Comment: Vit covington D deficiency has been defined as a level of serum 25-OH vitamin D less than 20 ng/mL (1,2) by the [place] of Medicine and an Endocrine Society practice guideline. The Endocrine Society further defined vitamin D insufficiency as a level between 21 and 29 ng/mL (2). 1. IOM ([place] of Medicine). 2010. Dietary reference intakes for calcium and D. [place]: The National Academies Press. 2. Jerry MF, Alcira NC, Osiris CORTEZ, et al. Evaluation, treatment, and prevention of vitamin D deficiency: an Endocrine Society clinical practice guideline. JCEM. 2010; 96 (7):1911-30. Performed By: #### 1 [id number], [id number], 76980749, [id number] ####[facility] [address] [place] [address] eGFRon 01-22-2023 GFR/1.73 sq M.predicted among non-blacks MDRD (S/P/Bld) [Vol rate/Area] 28 mL/min/1.73 m2 Low >=[address] [facility] Comment on above: Order Comment: Order added by Discern Expert. Result Comment: Relocation Services Specialist ap kidney disease could be indicated at eGFR's of less than 60 mL/min/1.73m2. Kidney failure is indicated at less than 15 mL/min/1.73m2. Performed By: #### 1 [id number], [id number], [id number], [id number] ####[facility] [address] [place] [address] Laboratory - Coagulationon 0 01-01-2023 INR Coag (Bld) [Relative time] 2.8 {INR} [facility] Work Phone: Comment on above: INR results are spec ifically intended to assess patients stabilized on long-term Anticoagulation therapy suggested INR?s ?Less Intensive Anticoagulation? 2.0 ? 3.0Conventional Range 3.0 ? 4.5 INR Coag (Bld) [Relative time] 2.8 {INR} [facility] Work Phone: No Panel Informationon 01-01 32.0 {second(s)} above high threshold 9.4-12.5 [facility] Work Phone: Comment on above: 15 days - 4 weeks 1 - 5 months 6 -11 months 1 ? 5 years 6 ? 10 years 11 -17 years Mean: 11.2 (9.5 ? 12.6) Mean: 11.0 (9.7 ? 12.8) Mean: 11.0 (9.8 ? 13.0) Mean: 11.3 (9.9 ? 13.4) Mean: 11.7 (10.0 ? 14.6) Mean: 11.8 (10.0 - 14.1) Pediatric Reference ranges were obtained from a study by phan Damian prepared from 1437 samples obtained at 7 different centers using the same coagulation reagent and instrumentation as [facility]. Currently there are no coagulation studies available worldwide for children to 14 days, and no normal ranges. Per Komal landis CNP -[facility] DO Work Phone: Yes [facility] DO Work Phone: [phone] 2 weeks -[facility] DO Work Phone: [phone] 3mg Friday, Friday, 2mg all other days [facility] DO Work Phone: [phone] 2-2.5 [facility] DO Work Phone: [phone] PTon 01-01-2023 INR Coag (PPP) [Relative time] 2.8 {INR} Invalid Interpretation Code [facility] Comment on above: Result Comment: INR results are specifically intended to assess patients stabilized on long-term Anticoagulation therapy suggested INR?s ?Less Intensive Anticoagulation? 2.0 ? 3.0 Conventional Range 3.0 ? 4.5 Performed By: #### 2 [id number] ####[facility] [address] [place] [address] PT Coag (PPP) [Time] 32.0 second(s) High 9.4-12.[address] [facility] Comment on above: Result Comment: 15 d ays - 4 weeks 1 - 5 months 6 -11 months 1 ? 5 years 6 ? 10 years 11 -17 years Mean: 11.2 (9.5 ? 12.6) Mean: 11.0 (9.7 ? 12.8) Mean: 11.0 (9.8 ? 13.0) Mean: 11.3 (9.9 ? 13.4) Mean: 11.7 (10.0 ? 14.6) Mean: 11.8 (10.0 - 14.1) Pediatric Reference ranges were obtained from a study by phan Damian prepared from 1437 samples obtained at 7 different centers using the same coagulation reagent and instrumentation as [facility]. Currently there are no coagulation studies available worldwide for children to 14 days, and no normal ranges. Performed By: #### 2 [id number] ####[facility] [address] [place] [address] Tobacco Screening.on 023 Fall risk assessment b) One or more fall s in the last year [facility] DO Work Phone: [phone] Tobacco use status CPHS b) No M [facility] DO Work Phone: [phone] Tobacco Screening. Yes [facility] DO Work Phone: [phone] Laboratory - Coagulationon 0 12-18-2022 INR Coag (Bld) [Relative time] 1.4 {INR} [facility] DO Work Phone: [phone] Panel Informationon 12-18 per Komal landis CNP [facility] DO Work Phone: [phone] Yes [facility] DO Work Phone: [phone] 2 weeks [facility] DO Work Phone: [phone] 4mg x 2 days then 3m g Mon Fri and 2mg all other days [facility] DO Work Phone: [phone] 2-2.5 [facility] DO Work Phone: [phone] Laboratory - Coagulationon 0 11-04-2022 INR Coag (Bld) [Relative time] 1.9 {INR} [facility] DO Work Phone: [phone] No Panel Informationon 11-04 per Komal landis CNP [facility] DO Work Phone: [phone] Yes [facility] DO Work Phone: [phone] 4 weeks [facility] DO Work Phone: [phone] 4mg today then 3mg M on Fri and 2mg all other days [facility] DO Work Phone: 2-2.5 [facility] DO Work Phone: Laboratory - Coagulationon 0 10-31-2022 INR Coag (Bld) [Relative time] 1.9 {INR} [facility] Complete DO Work Phone: Comment on above: INR results are spec ifically intended to assess patients stabilized on long-term Anticoagulation therapy suggested INR?s ?Less Intensive Anticoagulation? 2.0 ? 3.0Conventional Range 3.0 ? 4.5 No Panel Informationon 10-31 21.7 {second(s)} above high threshold 9.4-12.5 [facility] DO Work Phone: Comment on above: 15 days - 4 weeks 1 - 5 months 6 -11 months 1-5 years 6-10 years 11 -17 years Mean: 11.2 (9.5-12.6) Mean: 11.0 (9.7-12.8) Mean: 11.0 (9.8-13.0) Mean: 11.3 (9.9-13.4) Mean: 11.7 (10.0-14.6) Mean: 11.8 (10.0 - 14.1) Pediatric Reference ranges were obtained from a study by Be Fair et al. prepared from 1437 samples obtained at 7 different centers using the same coagulation reagent and instrumentation as [facility]. Currently there are no coagulation studies available worldwide for children to 14 days, and no normal ranges. Cult,Aerobe/Anaerobeon 10-14 Cult,Aerobe/Anaerobe Specimen Descriptio n .FOOT LEFT SWAB Direct Exam FEW NEUTROPHILS NO ORGANISMS SEEN Culture STAPHYLOCOCCUS AUREUS MODERATE GROWTH This isolate is methicillin susceptible. ESCHERICHIA COLI SCANT GROWTH No anaerobic organisms isolated at 5 days. Report Status FINAL 10/16/2022 SUSCEPTIBILITY Organism SAUR MSSA Method ARPITA Clindamycin <=0.25 SUSCEPTIBLE Erythromycin <=0.25 SUSCEPTIBLE Gentamicin <=0.5 SUSCEPTIBLE Gentamicin is used only in combination with other active agents that test susceptible. Induced Clind Resist NEGATIVE Levofloxacin <=0.12 SUSCEPTIBLE Oxacillin <=0.25 SUSCEPTIBLE This staph isolate may be susceptible to Penicillin. Please contact Microbiology for confirmatory testing of susceptibility if Pencillin is a therapeutic consideration. Tetracycline <=1 SUSCEPTIBLE Trimethoprim/Sulfa <=10 SUSCEPTIBLE SUSCEPTIBILITY Organism ESCHERICHIA COLI Method ARPITA Ampicillin >=32 RESISTANT Cefazolin 8 SUSCEPTIBLE Ceftriaxone <=0.25 SUSCEPTIBLE ESBL NEGATIVE Gentamicin <=1 SUSCEPTIBLE Levofloxacin >=8 RESISTANT Piperacillin/Tazobactam <=4 SUSCEPTIBLE Tobramycin <=1 SUSCEPTIBLE Trimethoprim/Sulfa <=20 SUSCEPTIBLE Susceptible [facility] Comment on above: Performed By: #### A ANC #### [id number] [place] [address] Solderer Torch: Graham Childs MD OPERATIVE REPORTon 3 OPERATIVE REPORT [facility] [address] [place] [address] OPERATIVE REPORT PATIENT NAME: BERNARDINO GUZMAN : 1940 [facility] REC NO: [id number] ROOM: ACCOUNT NO: [id number] ADMIT DATE: 10/11/2022 PROVIDER: Mario Hensley DATE OF PROCEDURE: 10/11/2022 PREOPERATIVE DIAGNOSIS: Plantar ulcer, left foot. POSTOPERATIVE DIAGNOSIS: Plantar ulcer, left foot with subcutaneous tissue involved. PROCEDURE: Wound debridement with EpiFix application, left heel. ANESTHESIA: Local MAC per Stan Arguelles. ESTIMATED BLOOD LOSS: Minimal. INDICATION: The patient has had a slow healing wound for the last 3 months with recent revascularization and minimal change. Pulses were palpable with good color and refill of the toes, and wound debridement and EpiFix application was requested. OPERATIVE PROCEDURE: The patient was brought to the OR, placed in supine position with attention drawn to the left foot. After IV sedation, local anesthesia was administered around the wound with sterile prep and drape, sharp debridement allowed for complete excision of all necrotic tissue down to a one-eighth inch depth in the center of the wound and the large wound was approximately 2.5 cm and the smaller wound was approximately 0.5 cm. Copious irrigation with gentamicin solution was performed after culture was obtained followed by hemostasis being maintained with pressure and EpiFix application; 2 units were utilized completely with none discarded. Steri-Strips and dry sterile dressing were put into place with procedure tolerated well. Partial weightbearing planned with limited activity and follow up in the next week in our office. MARIO HENSLEY PARDEEP/[email or web address] Doc#: [id number] CC: Josh Tatum Normal [facility] Glucose, Whole Bloodon 10-11 Glucose [Mass/Vol] 121 mg/dL High 65 - 99 mg/dL [facility] Interpretation and review of laboratory results Abnormal [facility] Basic Metabolic Panelon 09-12 Anion gap [Moles/Vol] 11 mmol/L 9 - 17 mmol/L [facility] Calcium [Mass/Vol] 9.6 mg/dL 8.6 - 10. 4 mg/dL [facility] Chloride [Moles/Vol] 100 mmol/L 98 - 10 7 mmol/L [facility] CO2 [Moles/Vol] 25 mmol/L 20 - 31 mmol/L [facility] Creatinine [Mass/Vol] 1.2 mg/dL High 0.50 - 0.90 mg/dL [facility] GFR/1.73 sq M.predicted MDRD (S/P/Bld) [Vol rate/Area] 45 mL/min/{1.73_m2} Low - PINF [facility] Comment on above: These results are not intended for use in patients <18 years of age. eGFR results are calculated without a race factor using the 2020 CKD-EPI equation. Careful clinical correlation is recommended, particularly when comparing to results calculated using previous equations. The CKD-EPI equation is less accurate in patients with extremes of muscle mass, extra-renal metabolism of creatine, excessive creatine ingestion, or following therapy that affects renal tubular secretion. Glucose [Mass/Vol] 140 mg/dL High 70 - 99 mg/dL [facility] Interpretation and review of laboratory results Abnormal [facility] Potassium [Moles/Vol] 4.1 mmol/L 3.7 - 5.3 mmol/L [facility] Sodium [Moles/Vol] 136 mmol/L 135 - 144 mmol/L [facility] Urea nitrogen [Mass/Vol] 24 mg/dL High 8 - 23 mg/dL [facility] Urea nitrogen/Creatinine (Bld) [Mass ratio] 20 9 - 20 [facility] Basic Metabolic Profon 10-07 Anion gap [Moles/Vol] 11 mmol/L Normal 9-17 [facility] Comment on above: Performed By: #### P T, CDP, BMP #### [facility] [address] [place], [place] [id number] Solderer Torch: Sky Cisneros MD BUN/CRE Ratio 20 Normal 9-20 [facility] Comment on above: Performed By: #### P T, CDP, BMP #### [facility] [address] [place] [address] Solderer Torch: Sky Cisneros MD Calcium [Mass/Vol] 9.6 mg/dL Normal 8.6-10.4 [facility] Comment on above: Performed By: #### P T, CDP, BMP #### [facility] [address] [place] [address] Solderer Torch: Sky Cisneros MD Chloride [Moles/Vol] 100 mmol/L Normal 98-107 [facility] Comment on above: Performed By: #### P T, CDP, BMP #### [facility] [address] [place] [address] Solderer Torch: Syk Cisneros MD CO2 [Moles/Vol] 25 mmol/L Normal 20-31 [facility] Comment on above: Performed By: #### P T, CDP, BMP #### [facility] [address] [place] [address] Solderer Torch: Sky Cisneros MD Creatinine [Mass/Vol] 1.20 mg/dL High 0.50-0.90 [facility] Comment on above: Performed By: #### P T, CDP, BMP #### [facility] [address] [place] [address] Solderer Torch: Sky Cisneros MD GFR/1.73 sq M.predicted among non-blacks MDRD (S/P/Bld) [Vol rate/Area] 45 mL/min/{1.73_m2} Low >60 [facility] Comment on above: Result Comment: These results are not intended for use in patients <18 years of age. eGFR results are calculated without a race factor using the 2020 CKD-EPI equation. Careful clinical correlation is recommended, particularly when comparing to results calculated using previous equations. The CKD-EPI equation is less accurate in patients with extremes of muscle mass, extra-renal metabolism of creatine, excessive creatine ingestion, or following therapy that affects renal tubular secretion. Performed By: #### P T CDP, BMP #### [facility] [address] [place] [address] Solderer Torch: Sky Cisneros MD Glucose [Mass/Vol] 140 mg/dL High 70-99 [facility] Comment on above: Performed By: #### P T CDP, BMP #### [facility] [address] [place] [address] Solderer Torch: Sky Cisneros MD Potassium [Moles/Vol] 4.1 mmol/L Normal 3.7-5.3 [facility] Comment on above: Performed By: #### P T CDP, BMP #### [facility] [address] [place] [address] Solderer Torch: Sky Cisneros MD Sodium [Moles/Vol] 136 mmol/L Normal 135-144 [facility] Comment on above: Performed By: #### P T CDP, BMP #### [facility] [address] [place] [address] Solderer Torch: Sky Cisneros MD Urea nitrogen [Mass/Vol] 24 mg/dL High 8-23 [facility] Comment on above: Performed By: #### P T, CDP, BMP #### [facility] Lab [address] [place] [address] Solderer Torch: Sky Cisneros MD CBC with Auto Differentialon 10-07-2022 Absolute Eos # 0.40 [facility] Absolute Lymph # 1.20 [facility] Absolute Gonzales # 0.70 [facility] Basophils (Bld) [#/Vol] 0.00 10*3/uL [facility] Basophils/100 WBC (Bld) 0 % 0 - 2 % B ON [facility] Differential Type YES [facility] Eosinophils/100 WBC (Bld) 3 % 0 - 5 % [facility] Hematocrit (Bld) [Volume fraction] 35.5 % Low 36 - 46 % [facility] Hemoglobin (Bld) [Mass/Vol] 11.8 g/dL Low 12.0 - 16.0 g/dL [facility] Interpretation and review of laboratory results Abnormal [facility] Lymphocytes/100 WBC (Bld) 10 % Low 15 - 40 % [facility] MCH (RBC) [Entitic mass] 28.7 pg 26 - 34 pg [facility] MCHC (RBC) [Mass/Vol] 33.2 g/dL 31 - 3 7 g/dL [facility] MCV (RBC) [Entitic vol] 86.6 fL 80 - 100 fL [facility] Monocytes/100 WBC (Bld) 5 % 4 - 8 % B ON [facility] Platelet distribution width (Bld) [Ratio] 15.8 % High 12.1 - 15.2 % [facility] Platelets (Bld) [#/Vol] 443 10*3/uL [facility] RBC (Bld) [#/Vol] 4.09 10*6/uL 4.0 - 5.2 m/uL [facility] Segmented neutrophils/100 WBC (Bld) 82 % High 47 - 75 % [facility] Segs Absolute 10.60 High [facility] WBC (Bld) [#/Vol] 12.9 10*3/uL High [facility] CBC with Diffon 10-07-2022 Abs. Basophil 0.00 k/uL Normal 0.0-0.2 [facility] Comment on above: Performed By: #### P T, CDP, BMP #### [facility] [address] [place], [place] [id number] Solderer Torch: Sky Cisneros MD Abs.Neutrophil (Seg) 10.60 k/uL High 2.5-7.0 [facility] Comment on above: Performed By: #### P T, CDP, BMP #### [facility] [address] [place], [place] [id number] Solderer Torch: Sky Cisneros MD Auto Diff Performed YES Normal [facility] Comment on above: Performed By: #### P T, CDP, BMP #### [facility] [address] [place] [id number] Solderer Torch: Sky Cisneros MD Basophils/100 WBC (Bld) 0 % Normal 0-2 [facility] Comment on above: Performed By: #### P T, CDP, BMP #### [facility] [address] [place] [address] Solderer Torch: Sky Cisneros MD Eosinophils (Bld) [#/Vol] 0.40 10*3/uL Normal 0.0-0.4 [facility] Comment on above: Performed By: #### P T, CDP, BMP #### [facility] [address] [place], [place] [id number] Solderer Torch: Sky Cisneros MD Eosinophils/100 WBC (Bld) 3 % Normal 0-5 [facility] Comment on above: Performed By: #### P T, CDP, BMP #### [facility] [address] [place] [address] Solderer Torch: Sky Cisneros MD Erythrocyte distribution width (RBC) [Ratio] 15.8 % High 12.1-15.2 [facility] Comment on above: Performed By: #### P T, CDP, BMP #### [facility] [address] [place] [address] Solderer Torch: Sky Cisneros MD Hematocrit (Bld) [Volume fraction] 35.5 % Low 36-46 [facility] Comment on above: Performed By: #### P T, CDP, BMP #### [facility] [address] [place] [id number] Solderer Torch: Sky Cisneros MD Hemoglobin (Bld) [Mass/Vol] 11.8 g/dL Low 12.0-16.0 [facility] Comment on above: Performed By: #### P T, CDP, BMP #### [facility] [address] [place] [address] Solderer Torch: Sky Cisneros MD Lymphocytes (Bld) [#/Vol] 1.20 10*3/uL Normal 1.0-4.8 [facility] Comment on above: Performed By: #### P T, CDP, BMP #### [facility] [address] [place] [address] Solderer Torch: Sky Cisnreos MD Lymphocytes/100 WBC (Bld) 10 % Low 15-40 [facility] Comment on above: Performed By: #### P T, CDP, BMP #### [facility] [address] [place] [address] Solderer Torch: Sky Cisneros MD MCH (RBC) [Entitic mass] 28.7 pg Normal 26-34 [facility] Comment on above: Performed By: #### P T, CDP, BMP #### [facility] [address] [place] [id number] Solderer Torch: Sky Cisneros MD MCHC (RBC) [Mass/Vol] 33.2 g/dL Normal 31-37 [facility] Comment on above: Performed By: #### P T, CDP, BMP #### [facility] [address] [place], [place] [phone] Solderer Torch: Sky Cisneros MD MCV (RBC) [Entitic vol] 86.6 fL Normal 80-100 M [facility] Comment on above: Performed By: #### P T, CDP, BMP #### [facility] [address] [place], [place] [phone] Solderer Torch: Sky Cisneros MD Monocytes (Bld) [#/Vol] 0.70 10*3/uL Normal 0.0-1.0 [facility] Comment on above: Performed By: #### P T, CDP, BMP #### [facility] [address] [place] [address] [phone] Solderer Torch: Sky Cisneros MD Monocytes/100 WBC (Bld) 5 % Normal 4-8 [facility] Comment on above: Performed By: #### P T, CDP, BMP #### [facility] [address] [place], [place] [phone] Solderer Torch: Sky Cisneros MD Neutrophil (Seg) 82 % High 47-75 [facility] Comment on above: Performed By: #### P T, CDP, BMP #### [facility] [address] [place], [place] [phone] Solderer Torch: Sky Cisneros MD Platelets (Bld) [#/Vol] 443 10*3/uL Normal 140-450 [facility] Comment on above: Performed By: #### P T, CDP, BMP #### [facility] [address] [place], [place] [phone] Solderer Torch: Sky Cisneros MD RBC (Bld) [#/Vol] 4.09 10*6/uL Normal 4.0-5.2 [facility] Comment on above: Performed By: #### P T, CDP, BMP #### [facility] [address] [place] [address] Solderer Torch: Sky Cisneros MD WBC (Bld) [#/Vol] 12.9 10*3/uL High 3.5-11.0 [facility] Comment on above: Performed By: #### P T, BORIS, BMP #### [facility] [address] [place] [address] Solderer Torch: Sky Cisneros MD PTon 10-07-2022 INR Coag (PPP) [Relative time] 2.1 {INR} Normal [facility] Comment on above: Result Comment: Therapeutic Range: Moderate Anticoagulant Intensity: INR = 2.0-3.0 High Anticoagulant Intensity: INR = 2.5-3.5 Performed By: #### P T, BORIS, BMP #### [facility] [address] [place] [address] Solderer Torch: Sky Cisneros MD PT Coag (PPP) [Time] 23.8 s High 11.5-14.2 [facility] Comment on above: Performed By: #### P T, BORIS, BMP #### [facility] [address] [place] [address] Solderer Torch: Sky Cisneros MD Protime-INRon 10-07-2022 INR Coag (PPP) [Relative time] 2.1 {INR} [facility] Comment on above: Therapeutic Range: Moderate Anticoagulant Intensity: INR = 2.0-3.0 High Anticoagulant Intensity: INR = 2.5-3.5 Interpretation and review of laboratory results Abnormal [facility] PT Coag (PPP) [Time] 23.8 s High [facility] CHEMISTRYOrdered By: SYSTEM SYSTEM on 09-13-2022 25-hydroxyvitamin D3 [Mass/Vol] 68.9 ng/mL Normal 30.0 - 100.0 ng/mL [facility] Remisol Albumin [Mass/Vol] 3.9 g/dL Normal 3.3 - 5.0 gm/dL [facility] Anion gap [Moles/Vol] 14 mmol/L Normal 6 - 16 mEq/L [facility] Remisol Calcium [Mass/Vol] 9.3 mg/dL Normal 8.9 - 11. 1 mg/dL [facility] Chloride [Moles/Vol] 102 mmol/L Normal 101 - 1 11 mmol/L [facility] Remisol CO2 [Moles/Vol] 25 mmol/L Normal 21 - 31 mmol/L [facility] Creatinine [Mass/Vol] 1.3 mg/dL Normal 0.5 - 1.3 mg/dL [facility] GFR/1.73 sq M.predicted among blacks MDRD (S/P/Bld) [Vol rate/Area] 47 mL/min/1.73 m2 Low >=59mL/min /1.73 m2 [facility] Chem S GFR/1.73 sq M.predicted among non-blacks MDRD (S/P/Bld) [Vol rate/Area] 39 mL/min/1.73 m2 Low >=59mL/min /1.73 m2 [facility] Chem S Glucose [Mass/Vol] 197 mg/dL Normal 55 - 199 mg/dL [facility] Phosphate [Mass/Vol] 4.0 mg/dL Normal 1.9 - 4 .6 mg/dL [facility] Potassium [Moles/Vol] 3.8 mmol/L Normal 3.5 - 5.3 mmol/L [facility] Sodium [Moles/Vol] 137 mmol/L Normal 135 - 145 mmol/L [facility] Urea nitrogen [Mass/Vol] 35 mg/dL High 5 - 21 mg/dL [facility] Urea nitrogen/Creatinine [Mass ratio] 27 mg/mg High 10 - 20 [facility] Remisol CHEMISTRYOrdered By: Arya Bañuelos on 09-13-2022 Albumin Elph (U) [Mass fraction] 15.1 mg/dL Invalid Interpretation Code [facility] Creatinine (U) [Mass/Vol] 180.2 mg/dL Invalid Interpretation Code [facility] U Prot/Creat Ratio 83.80 mg/gm Cr Normal 0.00 - 200.00 mg/gm Cr [facility] Remisol HEMATOLOGYOrdered By: Willy Amado on 09-13-2022 Hematocrit (Bld) [Volume fraction] 41.2 % Normal 34.0 - 46.0 % [facility] HemeAutoSS Hemoglobin (Bld) [Mass/Vol] 13.1 g/dL Normal 12.0 - 16.0 gm/dL [facility] HemeAutoSS Laboratory - Coagulationon 0 09-12-2022 INR Coag (Bld) [Relative time] 2.2 {INR} [facility] [address] DO Work Phone: Comment on above: INR results are spec ifically intended to assess patients stabilized on long-term Anticoagulation therapy suggested INR?s ?Less Intensive Anticoagulation? 2.0 ? 3.0Conventional Range 3.0 ? 4.5 No Panel Informationon 09-12 25.6 {second(s)} above high threshold 9.4-12.5 [facility] [address] DO Work Phone: Comment on above: 15 days - 4 weeks 1 - 5 months 6 -11 months 1-5 years 6-10 years 11 -17 years Mean: 11.2 (9.5-12.6) Mean: 11.0 (9.7-12.8) Mean: 11.0 (9.8-13.0) Mean: 11.3 (9.9-13.4) Mean: 11.7 (10.0-14.6) Mean: 11.8 (10.0 - 14.1) Pediatric Reference ranges were obtained from a study by Be Fair et al. prepared from 1437 samples obtained at 7 different centers using the same coagulation reagent and instrumentation as [facility]. Currently there are no coagulation studies available worldwide for children to 14 days, and no normal ranges. CHEMISTRYOrdered By: SYSTEM SYSTEM on 08-30-2022 Anion gap [Moles/Vol] 13 mmol/L Normal 6 - 16 mEq/L [facility] Remisol Calcium [Mass/Vol] 9.1 mg/dL Normal 8.9 - 11. 1 mg/dL [facility] Chloride [Moles/Vol] 104 mmol/L Normal 101 - 1 11 mmol/L [facility] CO2 [Moles/Vol] 25 mmol/L Normal 21 - 31 mmol/L [facility] Creatinine [Mass/Vol] 1.0 mg/dL Normal 0.5 - 1.3 mg/dL [facility] Remisol GFR/1.73 sq M.predicted among blacks MDRD (S/P/Bld) [Vol rate/Area] mL/min/1.73 m2 Normal >=59mL/min /1.73 m2 [facility] Chem S GFR/1.73 sq M.predicted among non-blacks MDRD (S/P/Bld) [Vol rate/Area] 53 mL/min/1.73 m2 Low >=59mL/min /1.73 m2 [facility] Chem S Glucose [Mass/Vol] 168 mg/dL Normal 55 - 199 mg/dL [facility] Remisol Potassium [Moles/Vol] 4.1 mmol/L Normal 3.5 - 5.3 mmol/L [facility] Remisol Sodium [Moles/Vol] 138 mmol/L Normal 135 - 145 mmol/L [facility] Remisol Urea nitrogen [Mass/Vol] 21 mg/dL Normal 5 - 21 mg/dL [facility] Urea nitrogen/Creatinine [Mass ratio] 21 mg/mg High 10 - 20 [facility] COAGULATIONOrdered By: Doris Jimenez on 08-30-2022 aPTT Coag (PPP) [Time] 32.2 s Normal 25.1 - 36.5 second(s) [facility] Auto Coag INR Coag (PPP) [Relative time] 1.2 {INR} Invalid Interpretation Code [facility] Auto Coag PT Coag (PPP) [Time] 13.0 s High 9.4 - 1 2.5 second(s) [facility] Auto Coag HEMATOLOGYOrdered By: SYSTEM SYSTEM on 08-30-2022 Basophils/100 WBC (Bld) 1.3 % Normal 0.0 - 2.0 % [facility]eAutoSS Basophils/Leukocytes Auto (Bld) [Pure # fraction] 0.2 E9/L Normal 0.0 - 0.2 E9/L [facility] Eosinophils/100 WBC (Bld) 2.2 % Normal 0.0 - 8.0 % [facility] Eosinophils/Leukocytes Auto (Bld) [Pure # fraction] 0.3 E9/L Normal 0.0 - 0.5 E9/L [facility] Lymphocytes/100 WBC (Bld) 11.1 % Low 14.0 - 50.0 % [facility] Lymphocytes/Leukocytes Auto (Bld) [Pure # fraction] 1.4 E9/L Normal 1.0 - 4.0 E9/L [facility] Monocytes/100 WBC (Bld) 6.8 % Normal 4.0 - 14.0 % [facility] Monocytes/Leukocytes Auto (Bld) [Pure # fraction] 0.9 E9/L Normal 0.2 - 1.0 E9/L [facility] Neutrophils/100 WBC (Bld) 78.6 % High 36.0 - 75.0 % [facility] Neutrophils/Leukocytes Auto (Bld) [Pure # fraction] 10.2 E9/L High 2.0 - 7.5 E9/L [facility] HEMATOLOGYOrdered By: Ruthie Romero on 08-30-2022 Erythrocyte distribution width (RBC) [Ratio] 15.8 % High 10.9 - 14.2 % [facility] Hematocrit (Bld) [Volume fraction] 39.5 % Normal 34.0 - 46.0 % [facility] Hemoglobin (Bld) [Mass/Vol] 12.4 g/dL Normal 12.0 - 16.0 gm/dL [facility] MCH (RBC) [Entitic mass] 27.7 pg Normal 27.0 - 34.0 pg [facility] MCHC (RBC) [Mass/Vol] 31.5 g/dL Normal 31.4 - 36.0 gm/dL [facility] MCV (RBC) [Entitic vol] 88.0 fL Normal 80.0 - 100.0 fL [facility] Platelet mean volume (Bld) [Entitic vol] 9.4 fL Normal 6.4 - 10.8 fL [facility] Platelets (Bld) [#/Vol] 299.0 E9/L Normal 150. 0 - 500.0 E9/L [facility] RBC (Bld) [#/Vol] 4.5 E12/L Normal 4.3 - 5.9 E12/L [facility] WBC corrected for nucl RBC Auto (Bld) [#/Vol] 13.0 E9/L High 4.0 - 11.0 E9/L [facility] Activated partial thrombopla stin time (aPTT) in platelet poor plasma by coagulation aOrdered By: Josh Mauro on 08-28-2022 aPTT Coag (PPP) [Time] 27.8 s 25.1-36.5 [facility] Creatinine and Glomerular fi ltration rate.predicted panel (S/P/Bld)Ordered By: Josh Mauro on 08-28-2022 Creatinine [Mass/Vol] 1.43 mg/dL 0.44-1.03 [facility] Estimated glomerular filtrat ion rate (GFR) non- AmericanOrdered By: Josh Mauro on 08-28-2022 GFR/1.73 sq M.predicted among non-blacks MDRD (S/P/Bld) [Vol rate/Area] 35 mL/Min [facility] - CoagulationOrde red By: Josh Mauro on 08-28-2022 PT Coag (PPP) [Time] 13.1 s 9.0-12.9 [facility] No Panel InformationOrdered By: Josh Mauro on 08-28-2022 Estimated GFR () 42 mL/Min [facility] Comment on above: GFR estimated refere nce range: According to KDOQI guidelines, <60 ml/min/1.73m2 is sufficient to diagnose a patient with chronic kidney disease. Pharmacy Creatinine Clearance (Chem 27.82 [facility] Platelet poor plasma interna tional normalized ratio (INR) by coagulation assay (relatOrdered By: Josh Mauro on 08-28-2022 INR Coag (PPP) [Relative time] 1.1 {INR} [facility] Comment on above: INR Therapeutic Rang e A) Pre- and Peroperative OAT started two weeks before surgery. NOT HIP SURGERY: 1.5 - 2.5 HIP SURGERY: 2 - 3B) Primary and secondary prevention of venous THROMBOSIS: 2 - 3C) Active venous thrombosis, pulmonary embolismand prevention of recurrent venous thrombosis: 2 - 3D) Prevention of arterial thromboembolismincluding patients with mechanical heart valves: 3 - 4.5 Serum or plasma urea nitroge n measurement (mass/volume)Ordered By: Josh Mauro on 08-28-2022 Urea nitrogen [Mass/Vol] 31 mg/dL 9-23 [facility] - Coagulationon 0 08-12-2022 INR Coag (Bld) [Relative time] 2.1 {INR} [facility] [address] DO Work Phone: No Panel Informationon 08-12 per Komal landis CNP [facility] DO Work Phone: Yes [facility] DO Work Phone: 4 weeks [facility] DO Work Phone: 3mg Mon Wed Fri and 2mg all other days [facility] DO Work Phone: 2-2.5 [facility] DO Work Phone: Laboratory - Coagulationon 0 07-29-2022 INR Coag (Bld) [Relative time] 3.9 {INR} [facility] DO Work Phone: Comment on above: INR results are spec ifically intended to assess patients stabilized on long-term Anticoagulation therapy suggested INR?s ?Less Intensive Anticoagulation? 2.0 ? 3.0Conventional Range 3.0 ? 4.5 No Panel Informationon 07-29 46.3 {second(s)} above high threshold 9.4-12.5 [facility] DO Work Phone: Comment on above: 15 days - 4 weeks 1 - 5 months 6 -11 months 1 ? 5 years 6 ? 10 years 11 -17 years Mean: 11.2 (9.5 ? 12.6) Mean: 11.0 (9.7 ? 12.8) Mean: 11.0 (9.8 ? 13.0) Mean: 11.3 (9.9 ? 13.4) Mean: 11.7 (10.0 ? 14.6) Mean: 11.8 (10.0 - 14.1) Pediatric Reference ranges were obtained from a study by corie Damian al. prepared from 1437 samples obtained at 7 different centers using the same coagulation reagent and instrumentation as [facility]. Currently there are no coagulation studies available worldwide for children to 14 days, and no normal ranges. CHEMISTRYOrdered By: Lab ROP User on 07-24-2022 Glucose [Mass/Vol] 167 mg/dL High 55 - 99 mg/dL [facility] POC Subsection Comment on above: Result Comment: Herminio dillard RN/ POC Device SN [id number] Invalid Interpretation Code [facility] POC Subsection POC User ID [id number] Invalid Interpretation Code [facility] POC Subsection POC Username Shari Sanchez Invalid Interpretation Code [facility] POC Subsection Glucose [Mass/Vol] 88 mg/dL Normal 55 - 99 mg/dL [facility] POC Subsection Comment on above: Result Comment: Herminio dillard RN/ POC Device SN [id number] Invalid Interpretation Code [facility] POC Subsection POC User ID [id number] Invalid Interpretation Code [facility] POC Subsection POC Username LucyCarlene traceyissa Invalid Interpretation Code [facility] POC Subsection COAGULATIONOrdered By: Doris Jimenez on 07-24-2022 aPTT Coag (PPP) [Time] 43.2 s High 25.1 - 36.5 second(s) [facility] Auto Coag INR Coag (PPP) [Relative time] 2.2 {INR} Invalid Interpretation Code [facility] Auto Coag PT Coag (PPP) [Time] 24.7 s High 9.4 - 1 2.5 second(s) [facility] Auto Coag URINALYSISOrdered By: Juan Nick on 07-24-2022 Bacteria LM Ql (Urine sed) Trace /HPF Normal Trace/HPF [facility] UA Auto SS Bilirubin Ql (U) Negative (07/24/22 5:00 AM) Normal Negative [facility] UA Auto SS Clarity (U) Clear (07/24/22 5:00 AM) Normal Clear [facility] UA Auto SS Color (U) Yellow (07/24/22 5:00 AM) Normal Yellow [facility] UA Auto SS Epithelial cells.squamous LM.HPF (Urine sed) [#/Area] 0-2 /HPF Normal 0-2/HPF [facility] UA Aut o SS Glucose Test strip (U) [Mass/Vol] Negative (07/24/22 5:00 AM) Normal Negative [facility] UA Auto SS Hemoglobin Ql (U) Trace *ABN* (07/24/22 5:00 AM) Invalid Interpretation Code Negative [facility] UA Auto SS Ketones (U) [Mass/Vol] Negative (07/24/22 5:00 AM) Normal Negative [facility] UA Auto SS [place].plasma/[place]. RBC (Bld) [Mass ratio] 0-3 /HPF Normal 0-3/HPF [facility] UA A uto SS Nitrite Ql (U) Negative (07/24/22 5:00 AM) Normal Negative [facility] UA Auto SS pH (U) 5.0 *NA* (07/24/22 5:00 AM) Invalid Interpretation Code 5.0 - 9.0 [facility]A Auto SS Protein (U) [Mass/Vol] Negative (07/24/22 5:00 AM) Normal Negative [facility] UA Auto SS Specific gravity (U) [Rel density] 1.015 *NA* (07/24/22 5:00 AM) Invalid Interpretation Code 1.005 - 1.030 [facility]A Auto SS UA Spec Desc Random Urine (07/24/22 5:00 AM) Normal [facility] UA Auto SS Urobilinogen Qn (U) [id number] {Estephanie'U}/dL Normal 0.0 - 1.0 EU/dL [facility]A Auto SS WBC Auto Ql (U) Trace *ABN* (07/24/22 5:00 AM) Invalid Interpretation Code Negative [facility] UA Auto SS WBC LM.HPF (Urine sed) [#/Area] 0-5 /HPF Normal 0-5/HPF [facility] UA Auto SS Yeast LM Ql (Urine sed) Trace (07/24/22 5:00 AM) Normal [facility] UA Auto SS CHEMISTRYOrdered By: Lab ROP User on 07-23-2022 Glucose [Mass/Vol] 179 mg/dL High 55 - 99 mg/dL [facility] POC Subsection Comment on above: Result Comment: Barbara bonita Meter POC Device SN [id number] Invalid Interpretation Code [facility] POC Subsection POC User ID [id number] Invalid Interpretation Code [facility] POC Subsection POC Username MCKAYLA JASVIR Invalid Interpretation Code [facility] POC Subsection CHEMISTRYOrdered By: SYSTEM SYSTEM on 07-23-2022 Anion gap [Moles/Vol] 10 mmol/L Normal 6 - 16 mEq/L [facility] Remisol Calcium [Mass/Vol] 8.3 mg/dL Low 8.9 - 11. 1 mg/dL [facility] Chloride [Moles/Vol] 110 mmol/L Normal 101 - 1 11 mmol/L [facility] Remisol CO2 [Moles/Vol] 23 mmol/L Normal 21 - 31 mmol/L [facility] Remisol Creatinine [Mass/Vol] 1.2 mg/dL Normal 0.5 - 1.3 mg/dL [facility] Remisol GFR/1.73 sq M.predicted among blacks MDRD (S/P/Bld) [Vol rate/Area] 52 mL/min/1.73 m2 Low >=59mL/min /1.73 m2 [facility] Chem S GFR/1.73 sq M.predicted among non-blacks MDRD (S/P/Bld) [Vol rate/Area] 43 mL/min/1.73 m2 Low >=59mL/min /1.73 m2 [facility] Chem S Glucose [Mass/Vol] 109 mg/dL Normal 55 - 199 mg/dL [facility] Magnesium [Mass/Vol] 2.2 mg/dL Normal 1.3 - 2 .4 mg/dL [facility] Potassium [Moles/Vol] 3.8 mmol/L Normal 3.5 - 5.3 mmol/L [facility] Sodium [Moles/Vol] 139 mmol/L Normal 135 - 145 mmol/L [facility] Urea nitrogen [Mass/Vol] 22 mg/dL High 5 - 21 mg/dL [facility] Urea nitrogen/Creatinine [Mass ratio] 18 mg/mg Normal 10 - 20 [facility]isol COAGULATIONOrdered By: Mala Szymanski on 07-23-2022 aPTT Coag (PPP) [Time] 48.9 s High 25.1 - 36.5 second(s) [facility] Auto Coag INR Coag (PPP) [Relative time] 3.9 {INR} Invalid Interpretation Code [facility] Auto Coag PT Coag (PPP) [Time] 45.9 s High 9.4 - 1 2.5 second(s) [facility] Auto Coag CHEMISTRYOrdered By: SYSTEM SYSTEM on 07-22-2022 Albumin [Mass/Vol] 2.7 g/dL Low 3.3 - 5.0 gm/dL [facility]isol Albumin/Globulin [Mass ratio] 1.1 {ratio} Normal 1.1 - 2.2 [facility] ALP [Catalytic activity/Vol] 31 [iU]/d Normal 21 - 98 Int._Unit/ L [facility] Rem[facility] ALT No additional P-5'-P [Catalytic activity/Vol] 13 [iU]/d Normal 6 - 46 Int._Unit/ L [facility] Anion gap [Moles/Vol] 8 mmol/L Normal 6 - 16 mEq/L [facility] AST [Catalytic activity/Vol] 16 [iU]/d Normal 5 - 43 Int._Unit/ L [facility] Bilirubin [Mass/Vol] 0.2 mg/dL Normal 0.0 - 1 .1 mg/dL [facility]isol Bilirubin.direct [Mass/Vol] mg/dL Normal 0.1 - 0.4 mg/dL [facility] Remisol Bilirubin.indirect [Mass or moles/Vol] Unable to Calculate mg/dL Invalid Interpretation Code 0.1 - 0.9 mg/dL [facility] Calcium [Mass/Vol] 8.0 mg/dL Low 8.9 - 11. 1 mg/dL [facility] Chloride [Moles/Vol] 111 mmol/L Normal 101 - 1 11 mmol/L [facility] CO2 [Moles/Vol] 24 mmol/L Normal 21 - 31 mmol/L [facility] Creatinine [Mass/Vol] 1.4 mg/dL High 0.5 - 1.3 mg/dL [facility] GFR/1.73 sq M.predicted among blacks MDRD (S/P/Bld) [Vol rate/Area] 44 mL/min/1.73 m2 Low >=59mL/min /1.73 m2 [facility] Chem S GFR/1.73 sq M.predicted among non-blacks MDRD (S/P/Bld) [Vol rate/Area] 36 mL/min/1.73 m2 Low >=59mL/min /1.73 m2 [facility] Chem S Globulin (S) [Mass/Vol] 2.4 g/dL Normal 1.4 - 4.0 gm/dL [facility] Glucose [Mass/Vol] 74 mg/dL Normal 55 - 199 mg/dL [facility] Magnesium [Mass/Vol] 1.8 mg/dL Normal 1.3 - 2 .4 mg/dL [facility] Potassium [Moles/Vol] 3.3 mmol/L Low 3.5 - 5.3 mmol/L [facility] Procalcitonin 0.06 ng/mL Normal 0.00 - 0.50 ng/mL [facility] Protein [Mass/Vol] 5.1 g/dL Low 6.0 - 7.8 gm/dL [facility] Sodium [Moles/Vol] 140 mmol/L Normal 135 - 145 mmol/L [facility] Urea nitrogen [Mass/Vol] 27 mg/dL High 5 - 21 mg/dL [facility] Urea nitrogen/Creatinine [Mass ratio] 19 mg/mg Normal 10 - 20 [facility] CHEMISTRYOrdered By: Michelle Iniguez on 07-22-2022 HbA1c (Bld) [Mass fraction] 8.5 % High <=5.9% [facility] [facility] COAGULATIONOrdered By: Anam Aguayo on 07-22-2022 aPTT Coag (PPP) [Time] 50.3 s High 25.1 - 36.5 second(s) [facility]ag INR Coag (PPP) [Relative time] 5.4 {INR} Invalid Interpretation Code [facility] Coag Comment on above: Result Comment: Resu lts Called To Darrin Mcbride By RS And Read Back For Confirmation On 07/22/2022 07:11:49 EST Results Verified By Repeat Analysis PT Coag (PPP) [Time] 64.7 s Invalid Interpretation Code 9.4 - 12.5 second(s) [facility] Coag Comment on above: Result Comment: Resu lts Called To Darrin Mcbride By RS And Read Back For Confirmation On 07/22/2022 07:11:49 EST Results Verified By Repeat Analysis HEMATOLOGYOrdered By: SYSTEM SYSTEM on 07-22-2022 Basophils/100 WBC (Bld) 0.8 % Normal 0.0 - 2.0 % [facility] HemeAutoSS Basophils/Leukocytes Auto (Bld) [Pure # fraction] 0.1 E9/L Normal 0.0 - 0.2 E9/L [facility]eAutoSS Eosinophils/100 WBC (Bld) 3.0 % Normal 0.0 - 8.0 % [facility] Eosinophils/Leukocytes Auto (Bld) [Pure # fraction] 0.3 E9/L Normal 0.0 - 0.5 E9/L [facility] Lymphocytes/100 WBC (Bld) 15.5 % Normal 14.0 - 50.0 % [facility] HemeAutoSS Lymphocytes/Leukocytes Auto (Bld) [Pure # fraction] 1.4 E9/L Normal 1.0 - 4.0 E9/L [facility]eAutoSS Monocytes/100 WBC (Bld) 5.5 % Normal 4.0 - 14.0 % [facility] HemeAutoSS Monocytes/Leukocytes Auto (Bld) [Pure # fraction] 0.5 E9/L Normal 0.2 - 1.0 E9/L [facility] HemeAutoSS Neutrophils/100 WBC (Bld) 75.2 % High 36.0 - 75.0 % [facility] Neutrophils/Leukocytes Auto (Bld) [Pure # fraction] 6.9 E9/L Normal 2.0 - 7.5 E9/L [facility] HEMATOLOGYOrdered By: Bart Bañuelos on 07-22-2022 Erythrocyte distribution width (RBC) [Ratio] 15.8 % High 10.9 - 14.2 % [facility] Hematocrit (Bld) [Volume fraction] 34.8 % Normal 34.0 - 46.0 % [facility] Hemoglobin (Bld) [Mass/Vol] 11.3 g/dL Low 12.0 - 16.0 gm/dL [facility] MCH (RBC) [Entitic mass] 27.8 pg Normal 27.0 - 34.0 pg [facility] MCHC (RBC) [Mass/Vol] 32.4 g/dL Normal 31.4 - 36.0 gm/dL [facility] MCV (RBC) [Entitic vol] 86.0 fL Normal 80.0 - 100.0 fL [facility] Platelet mean volume (Bld) [Entitic vol] 9.3 fL Normal 6.4 - 10.8 fL [facility] Platelets (Bld) [#/Vol] 249.0 E9/L Normal 150. 0 - 500.0 E9/L [facility] RBC (Bld) [#/Vol] 4.0 E12/L Low 4.3 - 5.9 E12/L [facility] WBC corrected for nucl RBC Auto (Bld) [#/Vol] 9.2 E9/L Normal 4.0 - 11.0 E9/L [facility] CHEMISTRYOrdered By: SYSTEM SYSTEM on 07-21-2022 Anion gap [Moles/Vol] 12 mmol/L Normal 6 - 16 mEq/L [facility] Calcium [Mass/Vol] 8.0 mg/dL Low 8.9 - 11. 1 mg/dL [facility] Chloride [Moles/Vol] 105 mmol/L Normal 101 - 1 11 mmol/L [facility] CO2 [Moles/Vol] 24 mmol/L Normal 21 - 31 mmol/L [facility] Creatinine [Mass/Vol] 1.9 mg/dL High 0.5 - 1.3 mg/dL [facility] CRP [Mass/Vol] 1.3 mg/dL Normal <=1.9mg/dL [facility] Rem[facility] ol GFR/1.73 sq M.predicted among blacks MDRD (S/P/Bld) [Vol rate/Area] 31 mL/min/1.73 m2 Low >=59mL/min /1.73 m2 [facility] Chem S GFR/1.73 sq M.predicted among non-blacks MDRD (S/P/Bld) [Vol rate/Area] 25 mL/min/1.73 m2 Low >=59mL/min /1.73 m2 [facility] Chem S Glucose [Mass/Vol] 168 mg/dL Normal 55 - 199 mg/dL [facility] Potassium [Moles/Vol] 3.6 mmol/L Normal 3.5 - 5.3 mmol/L [facility] Sodium [Moles/Vol] 137 mmol/L Normal 135 - 145 mmol/L [facility] Urea nitrogen [Mass/Vol] 38 mg/dL High 5 - 21 mg/dL [facility] Urea nitrogen/Creatinine [Mass ratio] 20 mg/mg Normal 10 - 20 [facility] Lactate [Mass/Vol] 1.2 mmol/L Normal 0.5 - 2.2 mmol/L [facility] HEMATOLOGYOrdered By: SYSTEM SYSTEM on 07-21-2022 Basophils/100 WBC (Bld) 0.5 % Normal 0.0 - 2.0 % [facility] Basophils/Leukocytes Auto (Bld) [Pure # fraction] 0.1 E9/L Normal 0.0 - 0.2 E9/L [facility] Eosinophils/100 WBC (Bld) 0.4 % Normal 0.0 - 8.0 % [facility] Eosinophils/Leukocytes Auto (Bld) [Pure # fraction] 0.1 E9/L Normal 0.0 - 0.5 E9/L [facility] Lymphocytes/100 WBC (Bld) 7.2 % Low 14.0 - 50.0 % [facility] Lymphocytes/Leukocytes Auto (Bld) [Pure # fraction] 1.1 E9/L Normal 1.0 - 4.0 E9/L [facility] Monocytes/100 WBC (Bld) 5.4 % Normal 4.0 - 14.0 % [facility] Monocytes/Leukocytes Auto (Bld) [Pure # fraction] 0.8 E9/L Normal 0.2 - 1.0 E9/L [facility] Neutrophils/100 WBC (Bld) 86.5 % High 36.0 - 75.0 % [facility] Neutrophils/Leukocytes Auto (Bld) [Pure # fraction] 12.8 E9/L High 2.0 - 7.5 E9/L [facility] HEMATOLOGYOrdered By: Ruthie Romero on 07-21-2022 Erythrocyte distribution width (RBC) [Ratio] 15.7 % High 10.9 - 14.2 % [facility] Hematocrit (Bld) [Volume fraction] 39.7 % Normal 34.0 - 46.0 % [facility] Hemoglobin (Bld) [Mass/Vol] 13.0 g/dL Normal 12.0 - 16.0 gm/dL [facility] MCH (RBC) [Entitic mass] 27.7 pg Normal 27.0 - 34.0 pg [facility] MCHC (RBC) [Mass/Vol] 32.8 g/dL Normal 31.4 - 36.0 gm/dL [facility] MCV (RBC) [Entitic vol] 84.5 fL Normal 80.0 - 100.0 fL [facility] Platelet mean volume (Bld) [Entitic vol] 10.4 fL Normal 6.4 - 10.8 fL [facility] Platelets (Bld) [#/Vol] 270.0 E9/L Normal 150. 0 - 500.0 E9/L [facility] RBC (Bld) [#/Vol] 4.7 E12/L Normal 4.3 - 5.9 E12/L [facility] WBC corrected for nucl RBC Auto (Bld) [#/Vol] 14.7 E9/L High 4.0 - 11.0 E9/L [facility] CHEMISTRYOrdered By: SYSTEM SYSTEM on 07-20-2022 Albumin [Mass/Vol] 4.0 g/dL Normal 3.3 - 5.0 gm/dL [facility] Albumin/Globulin [Mass ratio] 1.1 {ratio} Normal 1.1 - 2.2 [facility] ALP [Catalytic activity/Vol] 54 [iU]/d Normal 21 - 98 Int._Unit/ L [facility] ALT No additional P-5'-P [Catalytic activity/Vol] 21 [iU]/d Normal 6 - 46 Int._Unit/ L [facility] AST [Catalytic activity/Vol] 25 [iU]/d Normal 5 - 43 Int._Unit/ L [facility] Bilirubin [Mass/Vol] 0.7 mg/dL Normal 0.0 - 1 .1 mg/dL [facility] Bilirubin.direct [Mass/Vol] 0.2 mg/dL Normal 0.1 - 0.4 mg/dL [facility] Bilirubin.indirect [Mass or moles/Vol] 0.5 mg/dL Normal 0.1 - 0.9 mg/dL [facility] Globulin (S) [Mass/Vol] 3.5 g/dL Normal 1.4 - 4.0 gm/dL [facility] Lactate [Mass/Vol] 2.3 mmol/L High 0.5 - 2.2 mmol/L [facility] Comment on above: Result Comment: 'Spe cimen hemolyzed, result may be affected. Redraw is recommended.' Lipase [Catalytic activity/Vol] 37 U/L Normal 13 - 58 unit/L [facility] Magnesium [Mass/Vol] 2.0 mg/dL Normal 1.3 - 2 .4 mg/dL [facility] Protein [Mass/Vol] 7.5 g/dL Normal 6.0 - 7.8 gm/dL [facility] Troponin I.cardiac [Mass/Vol] 18.50 pg/mL Normal 10.10 - 27.10 pg/mL [facility] HEMATOLOGYOrdered By: SYSTEM SYSTEM on 07-20-2022 Basophils/100 WBC (Bld) 0.1 % Normal 0.0 - 2.0 % [facility] Basophils/Leukocytes Auto (Bld) [Pure # fraction] 0.0 E9/L Normal 0.0 - 0.2 E9/L [facility] Eosinophils/100 WBC (Bld) 0.2 % Normal 0.0 - 8.0 % [facility] Eosinophils/Leukocytes Auto (Bld) [Pure # fraction] 0.0 E9/L Normal 0.0 - 0.5 E9/L [facility] Lymphocytes/100 WBC (Bld) 2.4 % Low 14.0 - 50.0 % [facility] Lymphocytes/Leukocytes Auto (Bld) [Pure # fraction] 0.6 E9/L Low 1.0 - 4.0 E9/L [facility] Monocytes/100 WBC (Bld) 2.5 % Low 4.0 - 14.0 % [facility] Monocytes/Leukocytes Auto (Bld) [Pure # fraction] 0.6 E9/L Normal 0.2 - 1.0 E9/L [facility] Neutrophils/100 WBC (Bld) 94.8 % High 36.0 - 75.0 % [facility] Neutrophils/Leukocytes Auto (Bld) [Pure # fraction] 22.4 E9/L High 2.0 - 7.5 E9/L [facility] HEMATOLOGYOrdered By: Juan Nick on 07-20-2022 Erythrocyte distribution width (RBC) [Ratio] 15.4 % High 10.9 - 14.2 % [facility] Hematocrit (Bld) [Volume fraction] 45.9 % Normal 34.0 - 46.0 % [facility] Hemoglobin (Bld) [Mass/Vol] 14.9 g/dL Normal 12.0 - 16.0 gm/dL [facility] MCH (RBC) [Entitic mass] 27.6 pg Normal 27.0 - 34.0 pg [facility] MCHC (RBC) [Mass/Vol] 32.5 g/dL Normal 31.4 - 36.0 gm/dL [facility] MCV (RBC) [Entitic vol] 85.1 fL Normal 80.0 - 100.0 fL [facility] Platelet mean volume (Bld) [Entitic vol] 9.7 fL Normal 6.4 - 10.8 fL [facility] Platelets (Bld) [#/Vol] 368.0 E9/L Normal 150. 0 - 500.0 E9/L [facility] RBC (Bld) [#/Vol] 5.4 E12/L Normal 4.3 - 5.9 E12/L [facility] WBC corrected for nucl RBC Auto (Bld) [#/Vol] 23.6 E9/L High 4.0 - 11.0 E9/L [facility] Comment on above: Result Comment: Slid e reviewed by AD. No Panel InformationOrdered By: SAIMAPROCESSSEROPAL MICROBIOLOGY on 07-20-2022 Blood Culture Charcoal No growth at 3 da ys. Final to follow at 7 days. [facility] Blood Culture Charcoal No growth at 3 da ys. Final to follow at 7 days. [facility] Laboratory - Coagulationon 0 07-16-2022 INR Coag (Bld) [Relative time] 2.5 {INR} [facility] 250 DO Work Phone: Comment on above: INR results are spec ifically intended to assess patients stabilized on long-term Anticoagulation therapy suggested INR?s ?Less Intensive Anticoagulation? 2.0 ? 3.0Conventional Range 3.0 ? 4.5 INR Coag (Bld) [Relative time] 2.5 {INR} [facility] [place] 250 DO Work Phone: No Panel Informationon 07-16 29.2 {second(s)} above high threshold 9.4-12.5 [facility] 250 DO Work Phone: Comment on above: 15 days - 4 weeks 1 - 5 months 6 -11 months 1-5 years 6-10 years 11 -17 years Mean: 11.2 (9.5-12.6) Mean: 11.0 (9.7-12.8) Mean: 11.0 (9.8-13.0) Mean: 11.3 (9.9-13.4) Mean: 11.7 (10.0-14.6) Mean: 11.8 (10.0 - 14.1) Pediatric Reference ranges were obtained from a study by Be Fair et al. prepared from 1437 samples obtained at 7 different centers using the same coagulation reagent and instrumentation as [facility]. Currently there are no coagulation studies available worldwide for children to 14 days, and no normal ranges. per Komal landis, WESTERN PHILOSOPHY PROFESSOR [facility] [employer] 250 DO Work Phone: Yes [facility] [employer] 250 DO Work Phone: 4 weeks [facility] [employer] 250 DO Work Phone: 3mg Mon thru Fri and 2mg Sat Sun [facility] [employer] 250 DO Work Phone: 2-2.5 [facility] [employer] 250 DO Work Phone: Laboratory - Coagulationon 1 08-28-2021 INR Coag (Bld) [Relative time] 1.4 {INR} [facility] DO Work Phone: Comment on above: INR results are spec ifically intended to assess patients stabilized on long-term Anticoagulation therapy suggested INR?s ?Less Intensive Anticoagulation? 2.0 ? 3.0Conventional Range 3.0 ? 4.5 INR Coag (Bld) [Relative time] 1.4 {INR} [facility] [employer] 250 DO Work Phone: No Panel Informationon 06-27 15.8 {second(s)} above high threshold 9.4-12.5 [facility] [employer] 320 DO Work Phone: Comment on above: 15 days - 4 weeks 1 - 5 months 6 -11 months 1 ? 5 years 6 ? 10 years 11 -17 years Mean: 11.2 (9.5 ? 12.6) Mean: 11.0 (9.7 ? 12.8) Mean: 11.0 (9.8 ? 13.0) Mean: 11.3 (9.9 ? 13.4) Mean: 11.7 (10.0 ? 14.6) Mean: 11.8 (10.0 - 14.1) Pediatric Reference ranges were obtained from a study by Be Fair et al. prepared from 1437 samples obtained at 7 different centers using the same coagulation reagent and instrumentation as [facility]. Currently there are no coagulation studies available worldwide for children to 14 days, and no normal ranges. per Komal landis, WESTERN PHILOSOPHY PROFESSOR [facility] [employer] 250 DO Work Phone: Yes [facility] [employer] 250 DO Work Phone: 2 weeks [facility] [place] 250 DO Work Phone: 6mg today then 2mg S at Sun and 3mg all other days [facility] [employer] [place] 250 DO Work Phone: 2-2.5 [facility] [employer] 250 DO Work Phone: Laboratory - Coagulationon 1 08-12-2021 INR Coag (Bld) [Relative time] 2.5 {INR} [facility] [employer] 320 DO Work Phone: Comment on above: INR results are spec ifically intended to assess patients stabilized on long-term Anticoagulation therapy suggested INR?s ?Less Intensive Anticoagulation? 2.0 ? 3.0Conventional Range 3.0 ? 4.5 INR Coag (Bld) [Relative time] 2.5 {INR} [facility] [employer] [facility] 320 DO Work Phone: No Panel Informationon 06-12 28.9 {second(s)} above high threshold 9.4-12.5 [facility] [employer] 320 DO Work Phone: Comment on above: 15 days - 4 weeks 1 - 5 months 6 -11 months 1-5 years 6-10 years 11 -17 years Mean: 11.2 (9.5-12.6) Mean: 11.0 (9.7-12.8) Mean: 11.0 (9.8-13.0) Mean: 11.3 (9.9-13.4) Mean: 11.7 (10.0-14.6) Mean: 11.8 (10.0 - 14.1) Pediatric Reference ranges were obtained from a study by Be Fair et al. prepared from 1437 samples obtained at 7 different centers using the same coagulation reagent and instrumentation as [facility]. Currently there are no coagulation studies available worldwide for children to 14 days, and no normal ranges. per Iris Castro, WESTERN PHILOSOPHY PROFESSOR [facility] 320 DO Work Phone: Yes [facility] 320 DO Work Phone: [phone] 3 weeks [facility] 320 DO Work Phone: 2mg Tues Thurs Sat S un and 3mg all other days [facility] 320 DO Work Phone: 2-2.5 [facility] 320 DO Work Phone: Laboratory - Coagulationon 1 07-29-2021 INR Coag (Bld) [Relative time] 3.9 {INR} [facility] 320 DO Work Phone: Comment on above: INR results are spec ifically intended to assess patients stabilized on long-term Anticoagulation therapy suggested INR?s ?Less Intensive Anticoagulation? 2.0 ? 3.0Conventional Range 3.0 ? 4.5 INR Coag (Bld) [Relative time] 3.9 {INR} [facility] 320 DO Work Phone: No Panel Informationon 05-29 46.1 {second(s)} above high threshold 9.4-12.5 [facility] 320 DO Work Phone: Comment on above: 15 days - 4 weeks 1 - 5 months 6 -11 months 1 ? 5 years 6 ? 10 years 11 -17 years Mean: 11.2 (9.5 ? 12.6) Mean: 11.0 (9.7 ? 12.8) Mean: 11.0 (9.8 ? 13.0) Mean: 11.3 (9.9 ? 13.4) Mean: 11.7 (10.0 ? 14.6) Mean: 11.8 (10.0 - 14.1) Pediatric Reference ranges were obtained from a study by Be Fair et al. prepared from 1437 samples obtained at 7 different centers using the same coagulation reagent and instrumentation as [facility]. Currently there are no coagulation studies available worldwide for children to 14 days, and no normal ranges. per Iris Castro, WESTERN PHILOSOPHY PROFESSOR [facility] 320 DO Work Phone: 1 week [facility] 320 DO Work Phone: [phone] Hold x 1 day then 2m g Tues Thurs Sat Sun and 3mg all other days [facility] 320 DO Work Phone: 2-2.5 [facility] 320 DO Work Phone: Office Visit (Cardiology)on 05-28-2022 Follow-up visit Diagnoses/Problems Assessed Permanent atrial fibrillation (427.31) (I48.21) Sinus node dysfunction (427.81) (I49.5) Complete heart block (426.0) (I44.2) Pacemaker (V45.01) (Z95.0) Encounter for medication counseling (V65.49) (Z71.89) Encounter to discuss test results (V65.49) (Z71.2) Overweight with body mass index (BMI) of 25 to 25.9 in adult (278.02,V85.21) (E66.3,Z68.25) Never a smoker Mixed hyperlipidemia (272.2) (E78.2) Near syncope (780.2) (R55) Orders Edema Renew: Furosemide 20 MG Oral Tablet; TAKE 1 TABLET DAILY DIRECTED Health Maintenance Avoid alcoholic beverages.; Status:Complete - Retrospective Authorization; Done: [id number] Avoid foods and beverages that contain caffeine.; Status:Complete - Retrospective Authorization; Done: [id number] Diets that are low in carbohydrates and high in protein are very popular for weight loss.; Status:Complete - Retrospective Authorization; Done: [id number] Eat a low fat and low cholesterol diet.; Status:Complete - Retrospective Authorization; Done: [id number] Please bring all medicines, vitamins, and herbal supplements with you when you come to the office.; Status:Complete - Retrospective Authorization; Done: [id number] Restrict the salt in your diet by avoiding highly salted foods.; Status:Complete - Retrospective Authorization; Done: [id number] There are many exercise options for seniors.; Status:Complete - Retrospective Authorization; Done: [id number] Overweight with body mass index (BMI) of 25 to 25.9 in adult Losing just 5 to 10 pounds may lower your risk of health problems.; Status:Complete - Retrospective Authorization; Done: [id number] SocHx: Never a smoker Tobacco Use Screening; Status:Complete; Done: [id number] Patient Instructions Follow up with Komal in 6 months with a device check. Follow up with Dr. Hagen in 1 year with a device check. Drink Plenty of water daily. Avoid over the counter medications with Sudafed. You can take Mucinex, Delsym and Coricidin HBP. I, Brooklyn Haley, [facility], am scribing for and in the presence of, Dr. Taty Hagen, MA, FACC, FACP, FHRS. The provider reviewed the following test(s) and result(s) with the patient: ECG Chief Complaint Patient here for 1 year follow up with [facility] Adult Risk Screening Initial Fall Risk Screening: BERNARDINO has fallen in the last 6 months. Tobacco Screening: BERNARDINO does not use tobacco. Has not used tobacco in the past 6 months. History of Present Illness She is here for electrophysiology evaluation The patient and daughter are here to discuss pacemaker and arrhythmia. She feels all right. Sometimes she is a little weak and wobbly when she walks. The patient denies any lightheadedness, near syncope, syncope, palpitation, chest discomfort, dyspnea, BARNETT with mild exertion, PND, or edema. The device site continues to be well-healed and unchanged. The patient denies any redness, swelling, or drainage of the site. See ROS, PMH, FMH, and surgical history for details. The patient denies any recent hospitalization, procedure, or urgent care visit. Personal review of ECG and cardiac data reviewed since last office visit. Outside records: Office visit Komal Sousa NP November 2021 Device check August 2021 Office visit with me May 2021 Device Check: Today. Medtronic W1 DR pacemaker.. Greater than 9.7 years longevity. 0.02% atrial pacing. 17.1 % ventricular pacing. 0 VT. All rhythms atrial fibrillation since November 2020. This was discussed with the patient and family in detail again. No change in symptoms. ECG: Today. Atrial fibrillation. Left axis deviation. Corrected QT interval 480 ms. Appropriate pacing and sensing ; occasional fusion beat noted. Right bundle branch block. 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 Stable Medtronic W1 DR pacemaker. Chronic. Stable. Reviewed device check. Normal device function. Ordered device check. Continue to alternate remote checks with device clinic paired with EP office visit. Permanent atrial fibrillation stable. Overall rate controlled. Reviewed medications. Continue medications. Refills High-risk medication from warfarin. Continue warfarin long-term. Refill Nonsustained ventricular tachycardia. Normal LV function by echocardiogram 2016. Treatment options discussed in detail. Patient and family opted for conservative therapy in past. Any further evaluation declined by patient. Hypertension. Stable. Chronic. Reviewed medications. Refill Abnormal stress test thought to be false positive from pacer artifact and prior heart catheterization with no significant disease. Chronic. Stable. Follows with PCP Hyperlipidemia. Chronic. Stable. Reviewed medication. Takes statin. Discuss (more content not included)... Normal [facility] Tobacco Screening.on 022 Fall risk assessment b) One or more fall s in the last year [facility] DO Work Phone: Tobacco use status [facility]PHS b) No M [facility] [employer] DO Work Phone: Tobacco Screening. Yes [facility] [employer] DO Work Phone: CHEMISTRYOrdered By: SYSTEM SYSTEM on 05-20-2022 Albumin [Mass/Vol] 3.6 g/dL Normal 3.3 - 5.0 gm/dL [facility] Remisol Anion gap [Moles/Vol] 12 mmol/L Normal 6 - 16 mEq/L [facility] Remisol Calcium [Mass/Vol] 8.9 mg/dL Normal 8.9 - 11. 1 mg/dL [facility] Chloride [Moles/Vol] 103 mmol/L Normal 101 - 1 11 mmol/L [facility] CO2 [Moles/Vol] 25 mmol/L Normal 21 - 31 mmol/L [facility] Creatinine [Mass/Vol] 1.6 mg/dL High 0.5 - 1.3 mg/dL [facility] GFR/1.73 sq M.predicted among blacks MDRD (S/P/Bld) [Vol rate/Area] 37 mL/min/1.73 m2 Low >=59mL/min /1.73 m2 [facility] Chem S GFR/1.73 sq M.predicted among non-blacks MDRD (S/P/Bld) [Vol rate/Area] 31 mL/min/1.73 m2 Low >=59mL/min /1.73 m2 [facility] Chem S Glucose [Mass/Vol] 229 mg/dL High 55 - 199 mg/dL [facility] Phosphate [Mass/Vol] 3.4 mg/dL Normal 1.9 - 4 .6 mg/dL [facility] Potassium [Moles/Vol] 4.0 mmol/L Normal 3.5 - 5.3 mmol/L [facility] Sodium [Moles/Vol] 136 mmol/L Normal 135 - 145 mmol/L [facility] Urea nitrogen [Mass/Vol] 27 mg/dL High 5 - 21 mg/dL [facility] Remisol Urea nitrogen/Creatinine [Mass ratio] 17 mg/mg Normal 10 - 20 [facility] Remisol CHEMISTRYOrdered By: Nitesh singh on 05-20-2022 HbA1c (Bld) [Mass fraction] 8.7 % High <=5.9% [facility] ChemAutoSS CHEMISTRYOrdered By: Marvin Hoover on 05-20-2022 Albumin Elph (U) [Mass fraction] 21.3 mg/dL Invalid Interpretation Code [facility] Creatinine (U) [Mass/Vol] 143.0 mg/dL Invalid Interpretation Code [facility] U Prot/Creat Ratio 149.00 mg/gm Cr Normal 0.00 - 200.00 mg/gm Cr [facility] URINALYSISOrdered By: Bart Bañuelos on 05-20-2022 Bacteria LM Ql (Urine sed) 3+ /HPF Invalid Interpretation Code Trace/HPF [facility] UA Auto SS Bilirubin Ql (U) Negative (05/20/22 9:33 AM) Normal Negative [facility] Auto SS Clarity (U) SL CLOUDY Invalid Interpretation Code [facility] Auto SS Color (U) Yellow (05/20/22 9:33 AM) Normal Yellow [facility] Auto SS Epithelial cells.squamous LM.HPF (Urine sed) [#/Area] 0-2 /HPF Normal 0-2/HPF [facility] UA Aut o SS Glucose Test strip (U) [Mass/Vol] Trace *ABN* (05/20/22 9:33 AM) Invalid Interpretation Code Negative [facility] Auto SS Hemoglobin Ql (U) Trace *ABN* (05/20/22 9:33 AM) Invalid Interpretation Code Negative [facility] Auto SS Ketones (U) [Mass/Vol] Negative (05/20/22 9:33 AM) Normal Negative [facility] UA Auto SS [place].plasma/[place]. RBC (Bld) [Mass ratio] 0-3 /HPF Normal 0-3/HPF [facility] UA A uto SS Nitrite Ql (U) Negative (05/20/22 9:33 AM) Normal Negative [facility]A Auto SS pH (U) 6.0 *NA* (05/20/22 9:33 AM) Invalid Interpretation Code 5.0 - 9.0 [facility] Auto SS Protein (U) [Mass/Vol] Negative (05/20/22 9:33 AM) Normal Negative [facility]A Auto SS Specific gravity (U) [Rel density] 1.020 *NA* (05/20/22 9:33 AM) Invalid Interpretation Code 1.005 - 1.030 [facility]A Auto SS UA Spec Desc Clean Catch (05/20/22 9:33 AM) Normal [facility]A Auto SS Urobilinogen Qn (U) [id number] {Estephanie'U}/dL Normal 0.0 - 1.0 EU/dL [facility]A Auto SS WBC Auto Ql (U) 2+ *ABN* (05/20/22 9:33 AM) Invalid Interpretation Code Negative [facility]A Auto SS WBC LM.HPF (Urine sed) [#/Area] /[HPF] Invalid Interpretation Code 0-5/HPF [facility]A Auto SS Laboratory - Coagulationon 1 07-14-2021 INR Coag (Bld) [Relative time] 3.6 {INR} [facility] 320 DO Work Phone: [phone] Comment on above: INR results are spec ifically intended to assess patients stabilized on long-term Anticoagulation therapy suggested INR?s ?Less Intensive Anticoagulation? 2.0 ? 3.0Conventional Range 3.0 ? 4.5 INR Coag (Bld) [Relative time] 3.6 {INR} [facility] 320 DO Work Phone: [phone] Panel Informationon 05-14 41.7 {second(s)} above high threshold 9.4-12.5 [facility] 320 DO Work Phone: [phone] Comment on above: 15 days - 4 weeks 1 - 5 months 6 -11 months 1 ? 5 years 6 ? 10 years 11 -17 years Mean: 11.2 (9.5 ? 12.6) Mean: 11.0 (9.7 ? 12.8) Mean: 11.0 (9.8 ? 13.0) Mean: 11.3 (9.9 ? 13.4) Mean: 11.7 (10.0 ? 14.6) Mean: 11.8 (10.0 - 14.1) Pediatric Reference ranges were obtained from a study by Be Fair et al. prepared from 1437 samples obtained at 7 different centers using the same coagulation reagent and instrumentation as [facility]. Currently there are no coagulation studies available worldwide for children to 14 days, and no normal ranges. Per Komal landis, BECKY [facility] 320 DO Work Phone: [phone] Yes [facility] 320 DO Work Phone: [phone] week [facility] 320 DO Work Phone: [phone] Hold x 1 day then 2m g Thurs Sun and 3mg all other days [facility] 320 DO Work Phone: [phone] 2-2.5 -[facility] 320 DO Work Phone: [phone] Laboratory - Coagulationon 1 INR Coag (Bld) [Relative time] 1.4 {INR} [facility] 320 DO Work Phone: [phone] Comment on above: INR results are spec ifically intended to assess patients stabilized on long-term Anticoagulation therapy suggested INR?s ?Less Intensive Anticoagulation? 2.0 ? 3.0Conventional Range 3.0 ? 4.5 INR Coag (Bld) [Relative time] 1.4 {INR} [facility] 320 DO Work Phone: [phone] No Panel Informationon 04-23 15.4 {second(s)} above high threshold 9.4-12.5 -[facility] 320 DO Work Phone: [phone] Comment on above: 15 days - 4 weeks 1 - 5 months 6 -11 months 1 ? 5 years 6 ? 10 years 11 -17 years Mean: 11.2 (9.5 ? 12.6) Mean: 11.0 (9.7 ? 12.8) Mean: 11.0 (9.8 ? 13.0) Mean: 11.3 (9.9 ? 13.4) Mean: 11.7 (10.0 ? 14.6) Mean: 11.8 (10.0 - 14.1) Pediatric Reference ranges were obtained from a study by Be Fair et al. prepared from 1437 samples obtained at 7 different centers using the same coagulation reagent and instrumentation as [facility]. Currently there are no coagulation studies available worldwide for children to 14 days, and no normal ranges. Per Komal landis, BECKY [facility] 320 DO Work Phone: [phone] [facility] 320 DO Work Phone: [phone] 1 week -[facility] 320 DO Work Phone: [phone] today then 3mg QD - [facility] 320 DO Work Phone: [phone] 2-2.5 -[facility] 320 DO Work Phone: Laboratory - Coagulationon 0 04-09-2022 INR Coag (Bld) [Relative time] 2.2 {INR} [facility] 250 DO Work Phone: No Panel Informationon 04-[address] Hagen [facility] 250 DO Work Phone: Yes [facility] [address] DO Work Phone: 3 weeks [facility] DO Work Phone: [phone] 3mg Mon thru Fri and 2mg Sat Sun [facility] 250 DO Work Phone: [phone] 2-2.5 [facility] [address] DO Work Phone: Laboratory - Coagulationon 0 04-08-2022 INR Coag (Bld) [Relative time] 2.2 {INR} [facility] [address] [facility] Work Phone: Comment on above: INR results are spec ifically intended to assess patients stabilized on long-term Anticoagulation therapy suggested INR?s ?Less Intensive Anticoagulation? 2.0 ? 3.0Conventional Range 3.0 ? 4.5 No Panel Informationon 04-08 25.5 {second(s)} above high threshold 9.4-12.5 [facility] Kathie [facility] DO Work Phone: Comment on above: 15 days - 4 weeks 1 - 5 months 6 -11 months 1 ? 5 years 6 ? 10 years 11 -17 years Mean: 11.2 (9.5 ? 12.6) Mean: 11.0 (9.7 ? 12.8) Mean: 11.0 (9.8 ? 13.0) Mean: 11.3 (9.9 ? 13.4) Mean: 11.7 (10.0 ? 14.6) Mean: 11.8 (10.0 - 14.1) Pediatric Reference ranges were obtained from a study by corie Damian al. prepared from 1437 samples obtained at 7 different centers using the same coagulation reagent and instrumentation as [facility]. Currently there are no coagulation studies available worldwide for children to 14 days, and no normal ranges. Laboratory - Coagulationon 0 04-02-2022 INR Coag (Bld) [Relative time] 1.4 {INR} [facility] [employer] [facility] [employer] 250 DO Work Phone: No Panel Informationon 04-02 Per Komal landis, BECKY [facility] [employer] [facility] [employer] 250 DO Work Phone: Yes [facility] [facility] [employer] 250 DO Work Phone: 1 week [facility] [employer] [facility] [employer] 250 DO Work Phone: 4mg Today then 3mg M on thru Fri and 2mg Sat Sun [facility] [employer] [facility] [employer] 250 DO Work Phone: 2-2.5 [facility] [employer] 250 DO Work Phone: Laboratory - Coagulationon 0 04-01-2022 INR Coag (Bld) [Relative time] 1.4 {INR} [facility] 3 DO Work Phone: Comment on above: INR results are spec ifically intended to assess patients stabilized on long-term Anticoagulation therapy suggested INR?s ?Less Intensive Anticoagulation? 2.0 ? 3.0Conventional Range 3.0 ? 4.5 No Panel Informationon 04-01 15.6 {second(s)} above high threshold 9.4-12.5 [facility] 3 DO Work Phone: Comment on above: 15 days - 4 weeks 1 - 5 months 6 -11 months 1 ? 5 years 6 ? 10 years 11 -17 years Mean: 11.2 (9.5 ? 12.6) Mean: 11.0 (9.7 ? 12.8) Mean: 11.0 (9.8 ? 13.0) Mean: 11.3 (9.9 ? 13.4) Mean: 11.7 (10.0 ? 14.6) Mean: 11.8 (10.0 - 14.1) Pediatric Reference ranges were obtained from a study by Be [place], et al. prepared from 1437 samples obtained at 7 different centers using the same coagulation reagent and instrumentation as [facility]. Currently there are no coagulation studies available worldwide for children to 14 days, and no normal ranges. Laboratory - Coagulationon 0 03-14-2022 INR Coag (Bld) [Relative time] 1.6 {INR} -[facility] 320 DO Work Phone: Comment on above: INR results are spec ifically intended to assess patients stabilized on long-term Anticoagulation therapy suggested INR?s ?Less Intensive Anticoagulation? 2.0 ? 3.0Conventional Range 3.0 ? 4.5 No Panel Informationon 03-14 17.7 {second(s)} above high threshold 9.4-12.5 [facility] 320 DO Work Phone: Comment on above: 15 days - 4 weeks 1 - 5 months 6 -11 months 1 ? 5 years 6 ? 10 years 11 -17 years Mean: 11.2 (9.5 ? 12.6) Mean: 11.0 (9.7 ? 12.8) Mean: 11.0 (9.8 ? 13.0) Mean: 11.3 (9.9 ? 13.4) Mean: 11.7 (10.0 ? 14.6) Mean: 11.8 (10.0 - 14.1) Pediatric Reference ranges were obtained from a study by rosita Damian. prepared from 1437 samples obtained at 7 different centers using the same coagulation reagent and instrumentation as [facility]. Currently there are no coagulation studies available worldwide for children to 14 days, and no normal ranges. Laboratory - Coagulationon 0 02-27-2022 INR Coag (Bld) [Relative time] 1.1 {INR} -[facility] 320 DO Work Phone: Comment on above: INR results are spec ifically intended to assess patients stabilized on long-term Anticoagulation therapy suggested INR?s ?Less Intensive Anticoagulation? 2.0 ? 3.0Conventional Range 3.0 ? 4.5 INR Coag (Bld) [Relative time] 1.1 {INR} [facility] 320 DO Work Phone: No Panel Informationon 02-27 12.4 {second(s)} Normal 9.4-12.5 [facility] 320 DO Work Phone: Comment on above: 15 days - 4 weeks 1 - 5 months 6 -11 months 1 ? 5 years 6 ? 10 years 11 -17 years Mean: 11.2 (9.5 ? 12.6) Mean: 11.0 (9.7 ? 12.8) Mean: 11.0 (9.8 ? 13.0) Mean: 11.3 (9.9 ? 13.4) Mean: 11.7 (10.0 ? 14.6) Mean: 11.8 (10.0 - 14.1) Pediatric Reference ranges were obtained from a study by corie Damian al. prepared from 1437 samples obtained at 7 different centers using the same coagulation reagent and instrumentation as [facility]. Currently there are no coagulation studies available worldwide for children to 14 days, and no normal ranges. Per Iris Castro WESTERN PHILOSOPHY PROFESSOR M -[facility] 320 DO Work Phone: Yes [facility] 320 DO Work Phone: 1 week [facility] 320 DO Work Phone: 3mg Mon Fri and 2mg all other days [facility] 320 DO Work Phone: 2-2.5 [facility] 320 DO Work Phone: CHEMISTRYOrdered By: SYSTEM SYSTEM on 01-30-2022 Albumin [Mass/Vol] 3.8 g/dL Normal 3.3 - 5.0 gm/dL [facility] Albumin/Globulin [Mass ratio] 1.1 {ratio} Normal 1.1 - 2.2 [facility] ALP [Catalytic activity/Vol] 52 [iU]/d Normal 21 - 98 Int._Unit/ L [facility] ALT No additional P-5'-P [Catalytic activity/Vol] 15 [iU]/d Normal 6 - 46 Int._Unit/ L [facility] Anion gap [Moles/Vol] 16 mmol/L Normal 6 - 16 mEq/L [facility] AST [Catalytic activity/Vol] 21 [iU]/d Normal 5 - 43 Int._Unit/ L [facility] Bilirubin [Mass/Vol] 0.6 mg/dL Normal 0.0 - 1 .1 mg/dL [facility] Bilirubin.direct [Mass/Vol] 0.1 mg/dL Normal 0.1 - 0.4 mg/dL [facility] Bilirubin.indirect [Mass or moles/Vol] 0.5 mg/dL Normal 0.1 - 0.9 mg/dL [facility] Calcium [Mass/Vol] 9.4 mg/dL Normal 8.9 - 11. 1 mg/dL [facility] Chloride [Moles/Vol] 100 mmol/L Low 101 - 1 11 mmol/L [facility] CO2 [Moles/Vol] 23 mmol/L Normal 21 - 31 mmol/L [facility] Creatinine [Mass/Vol] 1.5 mg/dL High 0.5 - 1.3 mg/dL [facility] GFR/1.73 sq M.predicted among blacks MDRD (S/P/Bld) [Vol rate/Area] 40 mL/min/1.73 m2 Low >=59mL/min /1.73 m2 [facility] Chem S GFR/1.73 sq M.predicted among non-blacks MDRD (S/P/Bld) [Vol rate/Area] 33 mL/min/1.73 m2 Low >=59mL/min /1.73 m2 [facility] Chem S Globulin (S) [Mass/Vol] 3.5 g/dL Normal 1.4 - 4.0 gm/dL [facility] Glucose [Mass/Vol] 269 mg/dL High 55 - 199 mg/dL [facility] Lipase [Catalytic activity/Vol] 28 U/L Normal 13 - 58 unit/L [facility] Potassium [Moles/Vol] 4.6 mmol/L Normal 3.5 - 5.3 mmol/L [facility] Protein [Mass/Vol] 7.3 g/dL Normal 6.0 - 7.8 gm/dL [facility] Sodium [Moles/Vol] 134 mmol/L Low 135 - 145 mmol/L [facility] Urea nitrogen [Mass/Vol] 32 mg/dL High 5 - 21 mg/dL [facility] Urea nitrogen/Creatinine [Mass ratio] 21 mg/mg High 10 - 20 [facility] COAGULATIONOrdered By: Nitesh Almanzar on 01-30-2022 aPTT Coag (PPP) [Time] 38.5 s High 25.1 - 36.5 second(s) [facility] INR Coag (PPP) [Relative time] 1.5 {INR} Invalid Interpretation Code [facility] PT Coag (PPP) [Time] 18.0 s High 10.2 - 12.9 second(s) [facility] HEMATOLOGYOrdered By: SYSTEM SYSTEM on 01-30-2022 Basophils/100 WBC (Bld) 0.7 % Normal 0.0 - 2.0 % [facility] HemeAutoSS Basophils/Leukocytes Auto (Bld) [Pure # fraction] 0.1 E9/L Normal 0.0 - 0.2 E9/L [facility]eAuto[facility] Eosinophils/100 WBC (Bld) 1.3 % Normal 0.0 - 8.0 % [facility]eAutoSS Eosinophils/Leukocytes Auto (Bld) [Pure # fraction] 0.2 E9/L Normal 0.0 - 0.5 E9/L [facility]eAutoSS Lymphocytes/100 WBC (Bld) 7.2 % Low 14.0 - 50.0 % [facility]eAutoSS Lymphocytes/Leukocytes Auto (Bld) [Pure # fraction] 1.1 E9/L Normal 1.0 - 4.0 E9/L [facility]eAutoSS Monocytes/100 WBC (Bld) 2.8 % Low 4.0 - 14.0 % [facility]eAutoSS Monocytes/Leukocytes Auto (Bld) [Pure # fraction] 0.4 E9/L Normal 0.2 - 1.0 E9/L [facility]eAutoSS Neutrophils/100 WBC (Bld) 88.0 % High 36.0 - 75.0 % [facility]eAutoSS Neutrophils/Leukocytes Auto (Bld) [Pure # fraction] 13.0 E9/L High 2.0 - 7.5 E9/L [facility] HEMATOLOGYOrdered By: Sil Salazar on 01-30-2022 Erythrocyte distribution width (RBC) [Ratio] 16.3 % High 10.9 - 14.2 % [facility] Hematocrit (Bld) [Volume fraction] 39.9 % Normal 34.0 - 46.0 % [facility] Hemoglobin (Bld) [Mass/Vol] 12.8 g/dL Normal 12.0 - 16.0 gm/dL [facility] Hypochromia Auto Ql (Bld) Present (01/30/22 8:01 PM) Normal [facility] HemeManSS MCH (RBC) [Entitic mass] 24.5 pg Low 27.0 - 34.0 pg [facility] MCHC (RBC) [Mass/Vol] 32.0 g/dL Normal 31.4 - 36.0 gm/dL [facility] MCV (RBC) [Entitic vol] 76.5 fL Low 80.0 - 100.0 fL [facility] Morphology Maximiliano (Bld) [Interp] See Morphology (01/30/22 8:01 PM) Normal [facility] Ovalocytes LM Ql (Bld) Present (01/30/22 8:01 PM) Normal [facility] Platelet mean volume (Bld) [Entitic vol] 9.0 fL Normal 6.4 - 10.8 fL [facility]eAutoSS Platelets (Bld) [#/Vol] 361.0 E9/L Normal 150. 0 - 500.0 E9/L [facility] RBC (Bld) [#/Vol] 5.2 E12/L Normal 4.3 - 5.9 E12/L [facility] WBC corrected for nucl RBC Auto (Bld) [#/Vol] 14.8 E9/L High 4.0 - 11.0 E9/L [facility] URINALYSISOrdered By: Nitesh ann on 01-30-2022 Bacteria LM Ql (Urine sed) Trace /HPF Normal Trace/HPF [facility] UA Auto SS Bilirubin Ql (U) Negative (01/30/22 7:32 PM) Normal Negative [facility] UA Auto SS Clarity (U) SL CLOUDY Invalid Interpretation Code [facility] UA Auto SS Color (U) Yellow (01/30/22 7:32 PM) Normal Yellow [facility] UA Auto SS Crystals LM Ql (Urine sed) Present (01/30/22 7:32 PM) Normal [facility] UA Auto SS Epithelial cells.squamous LM.HPF (Urine sed) [#/Area] 3-4 /HPF Normal 0-2/HPF [facility] Aut o SS Glucose Test strip (U) [Mass/Vol] 2+ *ABN* (01/30/22 7:32 PM) Invalid Interpretation Code Negative [facility] UA Auto SS Hemoglobin Ql (U) Trace *ABN* (01/30/22 7:32 PM) Invalid Interpretation Code Negative [facility] UA Auto SS Ketones (U) [Mass/Vol] Negative (01/30/22 7:32 PM) Normal Negative [facility] UA Auto SS [place].plasma/[place]. RBC (Bld) [Mass ratio] 0-3 /HPF Normal 0-3/HPF [facility] A uto SS Mucus Ql (Urine sed) Trace (01/30/22 7:32 PM) Normal [facility] UA Auto SS Nitrite Ql (U) Positive *ABN* (01/30/22 7:32 PM) Invalid Interpretation Code Negative [facility] UA Auto SS pH (U) 5.5 *NA* (01/30/22 7:32 PM) Invalid Interpretation Code 5.0 - 9.0 [facility] UA Auto SS Protein (U) [Mass/Vol] 1+ *ABN* (01/30/22 7:32 PM) Invalid Interpretation Code Negative [facility] UA Auto SS Specific gravity (U) [Rel density] 1.025 *NA* (01/30/22 7:32 PM) Invalid Interpretation Code 1.005 - 1.030 [facility] UA Auto SS UA Spec Desc Clean Catch (01/30/22 7:32 PM) Normal [facility] UA Auto SS Urobilinogen Qn (U) 0.3338622 {Estephanie'U}/dL Normal 0.0 - 1.0 EU/dL [facility] UA Auto SS WBC Auto Ql (U) Negative (01/30/22 7:32 PM) Normal Negative [facility] UA Auto SS WBC LM.HPF (Urine sed) [#/Area] 6-15 /HPF Invalid Interpretation Code 0-5/HPF [facility] UA Auto SS CHEMISTRYOrdered By: Sushma Chandra on 01-02-2022 Albumin Elph (U) [Mass fraction] 6.7 mg/dL Invalid Interpretation Code [facility] Creatinine (U) [Mass/Vol] 32.2 mg/dL Invalid Interpretation Code [facility] U Prot/Creat Ratio 208.10 mg/gm Cr High 0.00 - 200.00 mg/gm Cr [facility] Remisol URINALYSISOrdered By: Sil Salazar on 01-02-2022 Bacteria LM Ql (Urine sed) 2+ /HPF Invalid Interpretation Code Trace/HPF [facility] UA Auto SS Bilirubin Ql (U) Negative (01/02/22 7:30 AM) Normal Negative [facility] UA Auto SS Clarity (U) SL CLOUDY Invalid Interpretation Code [facility] UA Auto SS Color (U) Yellow (01/02/22 7:30 AM) Normal Yellow [facility] UA Auto SS Epithelial cells.squamous LM.HPF (Urine sed) [#/Area] 0-2 /HPF Normal 0-2/HPF [facility] UA Aut o SS Glucose Test strip (U) [Mass/Vol] Negative (01/02/22 7:30 AM) Normal Negative [facility] UA Auto SS Hemoglobin Ql (U) Negative (01/02/22 7:30 AM) Normal Negative [facility] UA Auto SS Ketones (U) [Mass/Vol] Negative (01/02/22 7:30 AM) Normal Negative [facility] UA Auto SS [place].plasma/[place]. RBC (Bld) [Mass ratio] 0-3 /HPF Normal 0-3/HPF [facility] A uto SS Nitrite Ql (U) Negative (01/02/22 7:30 AM) Normal Negative [facility] UA Auto SS pH (U) 6.0 *NA* (01/02/22 7:30 AM) Invalid Interpretation Code 5.0 - 9.0 [facility] UA Auto SS Protein (U) [Mass/Vol] Negative (01/02/22 7:30 AM) Normal Negative [facility] UA Auto SS Specific gravity (U) [Rel density] <=1.005 *NA* (01/02/22 7:30 AM) Invalid Interpretation Code 1.005 - 1.030 [facility] UA Auto SS UA Spec Desc Clean Catch (01/02/22 7:30 AM) Normal [facility] UA Auto SS Urobilinogen Qn (U) 0.9492903 {Estephanie'U}/dL Normal 0.0 - 1.0 EU/dL [facility] UA Auto SS WBC Auto Ql (U) 1+ *ABN* (01/02/22 7:30 AM) Invalid Interpretation Code Negative [facility] UA Auto SS WBC LM.HPF (Urine sed) [#/Area] 16-25 /HPF Invalid Interpretation Code 0-5/HPF [facility] UA Auto SS CHEMISTRYOrdered By: SYSTEM SYSTEM on 01-01-2022 Albumin [Mass/Vol] 4.0 g/dL Normal 3.3 - 5.0 gm/dL [facility] Anion gap [Moles/Vol] 13 mmol/L Normal 6 - 16 mEq/L [facility] Calcium [Mass/Vol] 9.3 mg/dL Normal 8.9 - 11. 1 mg/dL [facility] Chloride [Moles/Vol] 100 mmol/L Low 101 - 1 11 mmol/L [facility] CO2 [Moles/Vol] 26 mmol/L Normal 21 - 31 mmol/L [facility] Creatinine [Mass/Vol] 1.6 mg/dL High 0.5 - 1.3 mg/dL [facility] Remisol GFR/1.73 sq M.predicted among blacks MDRD (S/P/Bld) [Vol rate/Area] 37 mL/min/1.73 m2 Low >=59mL/min /1.73 m2 [facility] Chem S GFR/1.73 sq M.predicted among non-blacks MDRD (S/P/Bld) [Vol rate/Area] 31 mL/min/1.73 m2 Low >=59mL/min /1.73 m2 [facility] Chem S Glucose [Mass/Vol] 347 mg/dL High 55 - 199 mg/dL [facility] Remisol Phosphate [Mass/Vol] 3.6 mg/dL Normal 1.9 - 4 .6 mg/dL [facility] Potassium [Moles/Vol] 4.3 mmol/L Normal 3.5 - 5.3 mmol/L [facility] Sodium [Moles/Vol] 135 mmol/L Normal 135 - 145 mmol/L [facility] Urea nitrogen [Mass/Vol] 34 mg/dL High 5 - 21 mg/dL [facility] Urea nitrogen/Creatinine [Mass ratio] 21 mg/mg High 10 - 20 [facility] Laboratory - Coagulationon 0 12-03-2021 INR Coag (Bld) [Relative time] 1.4 {INR} -[facility] 3 DO Work Phone: Comment on above: INR results are spec ifically intended to assess patients stabilized on long-term Anticoagulation therapy suggested INR?s ?Less Intensive Anticoagulation? 2.0 ? 3.0Conventional Range 3.0 ? 4.5 No Panel Informationon 12-03 17.1 {second(s)} above high threshold 10.2-12.9 -[facility] 3 DO Work Phone: Office Visit (Cardiology)on 11-27-2021 Follow-up visit Diagnoses/Problems Assessed Sinus node dysfunction (427.81) (I49.5) Complete heart block (426.0) (I44.2) Permanent atrial fibrillation (427.31) (I48.21) SOB (shortness of breath) on exertion (786.05) (R06.02) Pacemaker (V45.01) (Z95.0) Never a smoker Mixed hyperlipidemia (272.2) (E78.2) Malaise and fatigue (780.79) (R53.81,R53.83) Essential hypertension, benign (401.1) (I10) Dizziness (780.4) (R42) Edema (782.3) (R60.9) Overweight (278.02) (E66.3) Diabetes mellitus (250.00) (E11.9) Orders Edema Please bring all medicines, vitamins, and herbal supplements with you when you come to the office.; Status:Complete; Done: 27Nov2021 Pacemaker Interr. Device Eval - Sngl/Dual/Multiple Pacemaker; Status:Hold For - Scheduling; Requested for:27Nov2021; Remote Interr. Dev Eval - Sngl/Dual/Multi Lead Pacemaker Sys; Status:Hold For - Scheduling; Requested for:27Nov2021; SocHx: Never a smoker Tobacco Use Screening; Status:Complete; Done: 27Nov2021 Patient Instructions No list or bottles for comparison, patient or family member to call with any updates [phone] Chief Complaint Patient is here today for a scheduled follow up Chief complaint: I occasionally have some stabbing pain in my chest. History: The patient is a 81-year-old female who is followed for sinus node dysfunction status post dual-chamber pacemaker implant on January 21, 2018. 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 Additionally she is followed for permanent atrial fibrillation on rate control strategy with diltiazem and anticoagulated with warfarin, hypertension, and dyslipidemia. She states she occasionally experiences a fleeting stabbing chest pain which occur predominantly on the right side of her chest and are not associated with activity. She denies any associated symptoms including shortness of breath, diaphoresis, fatigue, or palpitations. She is accompanied by her daughter for today's office visit. Physical exam: Neurological: Alert and oriented X3. Cooperative and a pleasant demeanor. Normal power x4 extremities. HEENT: Carotid upstrokes are 2+/4 bilaterally. No carotid bruits noted. No jugular vein distention noted at 90 degrees. Cardiac: Regular S1 and S2. No S3, or S4. No murmurs or rubs noted. Lungs: Clear to auscultation posterior laterally. Respirations are regular and non-labored. Abdomen: Soft with active bowel sounds X4 quads. No hepatosplenomegaly noted. No palpable masses noted. Extremities: Lower extremities are warm, dry, and intact. Trace to 1+ right lower extremity edema noted and no left lower extremity edema noted. DPs are 2+ bilaterally. Left subclavian pacemaker pocket is well healed without redness, swelling, or drainage Labs and testing: Twelve-lead EKG reveals atrial fibrillation with controlled ventricular response with a ventricular rate of 89 bpm. QRS duration is 130 ms, QT 378 ms, QTC 459 ms. Right bundle branch block is noted. No acute ischemic changes are noted. Pacemaker interrogation dated November 27, 2021 reveals ventricular pacing at 18.88%. The A. fib burden is 100%. No ventricular arrhythmic events are noted. Estimated battery longevity is 10 years and 7 months. Review of INRs: November 16, 2021?2.4, November 05, 2021?3.9, October 17, 2021?2.5. Clinical impressions: 1. 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 2. Normal left ventricular function per 2D echocardiogram dated May 07, 2017. 3. Valvular heart disease consisting of mild aortic valve thickening, moderate to severe mitral valve thickening, moderate mitral stenosis, moderate reduction in anterior and posterior mitral valve leaflet mobility, mild TR and trace WI. 4. Pulmonary hypertension with a right ventricular systolic pressure 43.4 mmHg. 5. Mild coronary disease per left heart catheterization dated March 25, 2016 consisting of 25% mid LAD, 30 to 45% mid RCA, and 30% PLV B stenosis with recommendation for medical management. 6. Peripheral arterial disease status post stent. 7. Diabetes mellitus. 8. Chronic kidney disease. 9. Permanent atrial fibrillation on rate control strategy with diltiazem and anticoagulated with warfarin. 10. Nonsustained ventricular tachycardia per device interrogation dated May 27, 2019 with no documented clinical recurrence. Recommendations: 1. Continue current medications as prescribed. 2. Obtain pacemaker checks as scheduled. The next check is a remote check on March 04, 2022 followed by an in clinic check on May 28, 2022 at 2 PM. 3. Follow-up in office with Dr. Hagen on May 28, 2022 at 3 PM as scheduled or sooner if needed. 4. Continue lifestyle modifications as discussed. Evaluation and note by Komal Ventura, WESTERN PHILOSOPHY PROFESSOR Please excuse any err (more content not included)... Normal [facility] Tobacco Screening.on 022 Fall risk assessment a) No falls within the last year [place] [address] DO Work Phone: Tobacco use status CP b) No M [place] [address] DO Work Phone: Tobacco Screening. Yes [place] [address] DO Work Phone: Laboratory - Coagulationon 0 11-16-2021 INR Coag (Bld) [Relative time] 2.4 {INR} [facility] 3 DO Work Phone: Comment on above: INR results are spec ifically intended to assess patients stabilized on long-term Anticoagulation therapy suggested INR?s ?Less Intensive Anticoagulation? 2.0 ? 3.0Conventional Range 3.0 ? 4.5 INR Coag (Bld) [Relative time] 2.4 {INR} [facility] 320 DO Work Phone: No Panel Informationon 11-16 28.3 {second(s)} above high threshold 10.2-12.9 [facility] 3 DO Work Phone: [phone] Per Komal landis, WESTERN PHILOSOPHY PROFESSOR, left message [facility] 320 DO Work Phone: [phone] Yes [facility] 320 DO Work Phone: [phone] 2 weeks [facility] 320 DO Work Phone: [phone] 2mg QD [facility] 320 DO Work Phone: [phone] 2-2.5 [facility] 320 DO Work Phone: [phone] Laboratory - Coagulationon 0 11-05-2021 INR Coag (Bld) [Relative time] 3.9 {INR} [facility] 320 DO Work Phone: [phone] Comment on above: INR results are spec ifically intended to assess patients stabilized on long-term Anticoagulation therapy suggested INR?s ?Less Intensive Anticoagulation? 2.0 ? 3.0Conventional Range 3.0 ? 4.5 No Panel Informationon 11-05 46.7 {second(s)} above high threshold 10.2-12.9 [facility] 320 DO Work Phone: [phone] Laboratory - Coagulationon 0 10-17-2021 INR Coag (Bld) [Relative time] 2.5 {INR} [facility] 320 DO Work Phone: [phone] Comment on above: INR results are spec ifically intended to assess patients stabilized on long-term Anticoagulation therapy suggested INR?s ?Less Intensive Anticoagulation? 2.0 ? 3.0Conventional Range 3.0 ? 4.5 No Panel Informationon 10-17 29.7 {second(s)} above high threshold 10.2-12.9 [facility] 320 DO Work Phone: [phone] Laboratory - Coagulationon 0 3-23-2022 INR Coag (Bld) [Relative time] 1.2 {INR} [facility] 320 DO Work Phone: [phone] Comment on above: INR results are spec ifically intended to assess patients stabilized on long-term Anticoagulation therapy suggested INR?s ?Less Intensive Anticoagulation? 2.0 ? 3.0Conventional Range 3.0 ? 4.5 INR Coag (Bld) [Relative time] 1.2 {INR} [facility] 320 DO Work Phone: [phone] No Panel Informationon 10-03 13.9 {second(s)} above high threshold 10.2-12.9 [facility] 320 DO Work Phone: [phone] Per Faviola Glez CNP [facility] 320 DO Work Phone: [phone] Yes [facility] 320 DO Work Phone: [phone] 1 weeks [facility] 320 DO Work Phone: [phone] 2mg Sun and 4mg all other days [facility] 320 DO Work Phone: [phone] 2-2.5 [facility] 320 DO Work Phone: [phone] Laboratory - Coagulationon 0 09-18-2021 INR Coag (Bld) [Relative time] 1.4 {INR} [facility] 320 DO Work Phone: [phone] Comment on above: INR results are spec ifically intended to assess patients stabilized on long-term Anticoagulation therapy suggested INR?s ?Less Intensive Anticoagulation? 2.0 ? 3.0Conventional Range 3.0 ? 4.5 INR Coag (Bld) [Relative time] 1.4 {INR} -[facility] 320 DO Work Phone: No Panel Informationon 09-18 17.2 {second(s)} above high threshold 10.2-12.9 [facility] 320 DO Work Phone: [phone] Per Komal landis CNP [facility] 320 DO Work Phone: [phone] Yes [facility] 320 DO Work Phone: [phone] 2 weeks [facility] 320 DO Work Phone: [phone] 2mg Sun and 4mg all other days [facility] 320 DO Work Phone: [phone] 2-2.5 [facility] 320 DO Work Phone: [phone] Laboratory - Coagulationon 0 08-30-2021 INR Coag (Bld) [Relative time] 2.0 {INR} [facility] 320 DO Work Phone: [phone] Comment on above: INR results are spec ifically intended to assess patients stabilized on long-term Anticoagulation therapy suggested INR?s ?Less Intensive Anticoagulation? 2.0 ? 3.0Conventional Range 3.0 ? 4.5 INR Coag (Bld) [Relative time] 2.0 {INR} [facility] 320 DO Work Phone: [phone] Panel Informationon 08-30 23.3 {second(s)} above high threshold 10.2-12.9 [facility] 320 DO Work Phone: [phone] per Komal landis CNP [facility] 320 DO Work Phone: [phone] Yes [facility] 320 DO Work Phone: [phone] 2 weeks [facility] 320 DO Work Phone: [phone] 2mg Fri Sat Sun and 4mg Mon thru Thurs [facility] 320 DO Work Phone: [phone] 2-2.5 [facility] 320 DO Work Phone: [phone] Laboratory - Coagulationon 0 08-01-2021 INR Coag (Bld) [Relative time] 1.3 {INR} [facility] Work Phone: Comment on above: INR results are spec ifically intended to assess patients stabilized on long-term Anticoagulation therapy suggested INR?s ?Less Intensive Anticoagulation? 2.0 ? 3.0Conventional Range 3.0 ? 4.5 INR Coag (Bld) [Relative time] 1.3 {INR} -[facility] 3 DO Work Phone: No Panel Informationon 08-01 280 mg/dL above high threshold 55-99 [facility] Work Phone: Comment on above: Notified RN/MD 16.0 {second(s)} above high threshold 10.2-12.9 [facility] Work Phone: Per Komal landis, BECKY [facility] 3 DO Work Phone: Yes [facility] 3 DO Work Phone: 1 week -[facility] 3 DO Work Phone: 6mg today then 2mg F ri, Sat, Sun and 4mg all other days [facility] 3 DO Work Phone: 2-2.5 -[facility] 3 DO Work Phone: Laboratory - Coagulationon 1 INR Coag (Bld) [Relative time] 1.1 {INR} [facility] 320 DO Work Phone: Comment on above: INR results are spec ifically intended to assess patients stabilized on long-term Anticoagulation therapy suggested INR?s ?Less Intensive Anticoagulation? 2.0 ? 3.0Conventional Range 3.0 ? 4.5 No Panel Informationon 07-11 13.5 {second(s)} above high threshold 10.2-12.9 -[facility] 320 DO Work Phone: Laboratory - Coagulationon 1 07-30-2020 INR Coag (Bld) [Relative time] 1.0 {INR} [facility] Work Phone: Comment on above: INR results are spec ifically intended to assess patients stabilized on long-term Anticoagulation therapy suggested INR?s ?Less Intensive Anticoagulation? 2.0 ? 3.0Conventional Range 3.0 ? 4.5 No Panel Informationon 05-30 11.6 {second(s)} Normal 10.2-12.9 [facility] Work Phone: 308 mg/dL above high threshold 55-99 [facility] Work Phone: Tobacco Screening.on 021 Fall risk assessment a) No falls within the last year [facility] DO Work Phone: Tobacco use status [facility] b) No M [facility] 320 DO Work Phone: Laboratory - Coagulationon 0 11-06-2019 INR Coag (Bld) [Relative time] 3.9 {INR} -[facility] 3 DO Work Phone: No Panel Informationon 11-[address] [facility] Work Phone: Yes -[facility] 3 DO Work Phone: 1 week [facility] Work Phone: Hold x 2 days then 2 mg daily [facility] DO Work Phone: 2-2.5 [facility] DO Work Phone: CBC AUTO DIFFon 09-22-2019 Basophils (Bld) [#/Vol] 0.1 103/ul Normal 0.0-0.[address] [facility] Comment on above: Performed By: #### C BC #### [facility] [address], [place] [address] Juvencio Selene Basophils/100 WBC (Bld) 1.3 % Normal 0.2-2.[address] [facility] Comment on above: Performed By: #### C BC #### [facility] [address], [place] [address] Juvencio Selene Eosinophils (Bld) [#/Vol] 1.0 103/ul Critically high 0.0-0.7 [facility] Comment on above: Performed By: #### C BC #### [facility] [address], [place] [address] Juvencio Selene Eosinophils/100 WBC (Bld) 9.4 % Critically high 0.9-7.0 [facility] Comment on above: Performed By: #### C BC #### [facility] [address] [place] [id number] Juvencio Selene Erythrocyte distribution width (RBC) [Ratio] 13.6 % Normal 11.0-15.0 [facility] Comment on above: Performed By: #### C BC #### [facility] [address], [place] [address] Juvencio Selene Hematocrit (Bld) [Volume fraction] 38.6 % Normal 36.0-48.0 [facility] Comment on above: Performed By: #### C BC #### [facility] [address], [place] [address] Juvencio Selene Hemoglobin (Bld) [Mass/Vol] 12.3 g/dL Normal 12.0-16.0 [facility] Comment on above: Performed By: #### C BC #### [facility] [address], [place] [address] Juvencio Selene IG # 0.21 10e3/ul Critically high 0.00-0.03 [facility] Comment on above: Performed By: #### C BC #### [facility] [address] [place] [phone] Juvencio Selene IG % 2.0 % Critically high 0.0-0.5 [facility] Comment on above: Performed By: #### C BC #### [facility] [address], [place] [address] Juvencio Selene Lymphocytes (Bld) [#/Vol] 2.1 103/ul Normal 1.2-3.8 [facility] Comment on above: Performed By: #### C BC #### [facility] [address], [place] [address] Juvencio Selene Lymphocytes/100 WBC (Bld) 20.6 % Normal 20.5-60.0 [facility] Comment on above: Performed By: #### C BC #### [facility] [address] [place] [address] Juvencio Selene MANUAL DIFF REQ NO Normal [facility] Comment on above: Performed By: #### C BC #### [facility] [address] [place] [address] Juvencio Selene MCH (RBC) [Entitic mass] 27.5 pg Normal 26.7-34.0 [facility] Comment on above: Performed By: #### C BC #### [facility] [address] [place] [address] Juvencio Selene MCHC (RBC) [Mass/Vol] 31.9 g/dL Normal 29.9-35.2 [facility] Comment on above: Performed By: #### C BC #### [facility] [address] [place] [address] Juvencio Selene MCV (RBC) [Entitic vol] 86.2 fL Normal 81.0-99.[address] [facility] Comment on above: Performed By: #### C BC #### [facility] [address] [place] [address] Juvencio Selene Monocytes (Bld) [#/Vol] 0.9 103/ul Critically high 0.3-0.8 [facility] Comment on above: Performed By: #### C BC #### [facility] [address] [place] [address] Juvencio Selene Monocytes/100 WBC (Bld) 8.6 % Normal 1.7-12.[address] [facility] Comment on above: Performed By: #### C BC #### [facility] [address], [place] [address] Juvencio Selene Neutrophils (Bld) [#/Vol] 6.0 103/ul Normal 1.4-6.5 [facility] Comment on above: Performed By: #### C BC #### [facility] [address], [place] [address] Juvencio Selene Neutrophils/100 WBC (Bld) 58.1 % Normal 43.0-75.0 [facility] Comment on above: Performed By: #### C BC #### [facility] [address], [place] [address] Juvencio Selene Platelet mean volume (Bld) [Entitic vol] 10.2 fL Normal 9.5-13.5 [facility] Comment on above: Performed By: #### C BC #### [facility] [address], [place] [address] Juvencio Selene Platelets (Bld) [#/Vol] 427 103/ul Normal 150-[address] [facility] Comment on above: Performed By: #### C BC #### [facility] [address], [place] [address] Juvencio Selene RBC (Bld) [#/Vol] 4.48 106/ul Normal 4.20-5.40 [place] Comment on above: Performed By: #### C BC #### [facility] [address], [place] [address] Juvencio Selene WBC (Bld) [#/Vol] 10.4 103/ul Normal 4.0-11.0 [facility] Comment on above: Performed By: #### C BC #### [facility] [address] [place] [address] Juvencio Selene CHEST 2 VIEWon 05-26-2018 CHEST 2 VIEW DATE OF EXAM: May 26 2018 12:29PM CLINICAL HISTORY/ Patient Name: BERNARDINO GUZMAN STUDY: CHEST 2 VIEW; 05/26/2018 12:29 pm INDICATION: pacemaker. COMPARISON: 02/20/2018 ACCESSION NUMBER(S): [id number] ORDERING CLINICIAN: TATY HAGEN FINDINGS: CARDIOMEDIASTINAL SILHOUETTE: Cardiomediastinal silhouette is normal in size and configuration. Cardiac pacer. Aortic calcification. LUNGS: Lungs are clear. ABDOMEN: No remarkable upper abdominal findings. BONES: No acute osseous changes. CONCLUSION: IMPRESSION: 1. No evidence of acute cardiopulmonary process. Normal [facility] CHEST 2 VIEWon 02-20-2018 CHEST 2 VIEW DATE OF EXAM: Feb 20 2018 7:21AM CLINICAL HISTORY/ Patient Name: BERNARDINO GUZMAN STUDY: CHEST 2 VIEW; 02/20/2018 7:21 am INDICATION: ICD/PPM Placement. COMPARISON: 02/19/2018 ACCESSION NUMBER(S): [id number] ORDERING CLINICIAN: SHARMAINE GONZALEZ TECHNIQUE: FINDINGS: The heart is normal in size. There is a dual lead transvenous pacemaker. There is no consolidation or pleural fluid. There is no evidence of pneumothorax. There are atherosclerotic changes of the aorta. The bones are unremarkable. COMPARISON OF FINDING: The chest is similar. CONCLUSION: IMPRESSION: No acute cardiopulmonary disease. Normal [facility] Glucose, WB POCon 02-20-2018 Glucose mass conc 215 mg/dL High 70-100 [facility] Comment on above: Performed By: #### 1 [id number] #### [facility] [address] [place] [address] CBC With Differentialon Basophils #/vol (Bld) 0.09 10*3/uL High 0.01-0.07 [facility] Comment on above: Performed By: #### 1 [id number] #### [facility] [address] [place] [address] Basophils/100 WBC (Bld) 0.7 % Normal 0.1-1.2 [facility] Comment on above: Performed By: #### 1 [id number] #### [facility] [address] [place] [address] Eosinophils #/vol (Bld) 0.64 10*3/uL High 0.04-0.50 [facility] Comment on above: Performed By: #### 1 [id number] #### [facility] [address] [place] [address] Eosinophils/100 WBC (Bld) 5.1 % Normal 0.0-8.1 [facility] Comment on above: Performed By: #### 1 [id number] #### [facility] [address] [place] [address] Erythrocyte distribution width Ratio (RBC) 13.4 % Normal 12.0-15.4 [facility] Comment on above: Performed By: #### 1 [id number] #### [facility] [address] [place], [place] [id number] Hematocrit Volume Fraction (Bld) 40.8 % Normal 36.5-46.6 [facility] Comment on above: Performed By: #### 1 [id number] #### [facility] [address] [place] [address] Hemoglobin mass conc (Bld) 13.5 g/dL Normal 11.8-15.3 [facility] Comment on above: Performed By: #### 1 [id number] #### [facility] [address] [place] [address] Imm Grans Absolute 0.08 10*3/uL Normal 0.00-0.21 [facility] Comment on above: Performed By: #### 1 [id number] #### [facility] [address] [place] [address] Immature granulocytes #/vol (Bld) 0.6 % Normal [facility] Comment on above: Performed By: #### 1 [id number] #### [facility] [address] [place] [address] Lymphocytes #/vol (Bld) 2.30 10*3/uL Normal 0.40-2.84 [facility] Comment on above: Performed By: #### 1 [id number] #### [facility] [address] [place] [address] Lymphocytes/100 WBC (Bld) 18.3 % Normal 15.7-50.5 [facility] Comment on above: Performed By: #### 1 [id number] #### [facility] [address] [place] [address] MCH Entitic mass (RBC) 29.3 pg Normal 27.5-33.0 [facility] Comment on above: Performed By: #### 1 [id number] #### [facility] [address] [place] [address] MCHC mass conc (RBC) 33.1 g/dL Normal 30.1-35.0 [facility] Healthcare Comment on above: Performed By: #### 1 [id number] #### [facility] [address] [place] [address] MCV Entitic volume (RBC) 88.5 fL Normal 85.4-100.0 [facility] Comment on above: Performed By: #### 1 [id number] #### [facility] [address] [place] [address] Monocytes #/vol (Bld) 0.77 10*3/uL Normal 0.25-0.83 [facility] Comment on above: Performed By: #### 1 [id number] #### [facility] [address] [place] [address] Monocytes/100 WBC (Bld) 6.1 % Normal 4.8-12.7 [facility] Comment on above: Performed By: #### 1 [id number] #### [facility] [address] [place] [address] Neutrophils Absolute 8.71 10*3/uL High 1.95-6.85 [facility] Comment on above: Performed By: #### 1 [id number] #### [facility] [address] [place] [address] Neutrophils/100 WBC (Bld) 69.2 % Normal 36.8-73.2 [facility] Healthcare Comment on above: Performed By: #### 1 [id number] #### [facility] [address] [place] [address] NRBC Absolute 0.00 10*3/uL Normal [facility] Healthcare Comment on above: Performed By: #### 1 [id number] #### [facility] [address] [place] [address] NRBC Automated 0.0 /100{WBCs} Normal [facility] Healthcare Comment on above: Performed By: #### 1 [id number] #### [facility] [address] [place] [address] Platelet mean volume Entitic volume (Bld) 12.1 fL Normal 9.9-12.1 [facility] Comment on above: Performed By: #### 1 [id number] #### [facility] [address] [place] [address] Platelets #/vol (Bld) 278 10*3/uL Normal 155-404 [facility] Comment on above: Performed By: #### 1 [id number] #### [facility] [address] [place] [address] RBC #/vol (Bld) 4.61 10*6/uL Normal 3.85-5.10 [facility] Comment on above: Performed By: #### 1 [id number] #### [facility] [address] [place] [address] RDW SD 43.6 fL Normal 39.3-48.6 [facility] Comment on above: Performed By: #### 1 [id number] #### [facility] [address] [place] [address] WBC #/vol (Bld) 12.6 10*3/uL High 4.4-9.9 [facility] Comment on above: Performed By: #### 1 [id number] #### [facility] [address] [place] [address] CHEST 2 VIEWon 02-19-2018 CHEST 2 VIEW DATE OF EXAM: Feb 19 2018 1:51PM CLINICAL HISTORY/ Patient Name: BERNARDINO GUZMAN STUDY: CHEST 2 VIEW; 02/19/2018 1:51 pm INDICATION: pre-op. COMPARISON: 01/22/2018 ACCESSION NUMBER(S): [id number] ORDERING CLINICIAN: TATY HAGEN FINDINGS: PA and lateral views of the chest were obtained. A 2 lead pacer is seen over the left chest. No focal infiltrate, pleural effusion or pneumothorax is identified. The cardiac silhouette is within normal limits for size. Mild discogenic degenerative changes are seen throughout the thoracic spine. CONCLUSION: IMPRESSION: No focal infiltrate or pneumothorax. Normal [facility] Glucose, WB POCon 02-19-2018 Glucose mass conc 117 mg/dL High 70-100 [facility] Healthcare Comment on above: Performed By: #### 1 [id number] #### [facility] [address] [place] [address] Glucose mass conc 113 mg/dL High 70-100 [facility] Healthcare Comment on above: Performed By: #### 1 [id number] #### [facility] [address] [place] [address] Glucose mass conc 187 mg/dL High 70-100 [facility] Healthcare Comment on above: Performed By: #### 1 [id number] #### [facility] [address] [place] [address] Partial Thromboplastin Timeo n 02-19-2018 aPTT Coag time (Bld) 27.9 s Normal 25.0-36.0 [facility] Healthcare Comment on above: Result Comment: . The APTT is no longer used for monitoring Unfractionated Heparin Therapy. For monitoring Heparin Therapy, use the Heparin Assay. Performed By: #### 1 [id number] #### [facility] [address] [place] [address] Prothrombin Timeon 8 INR Coag RelTime (PPP) 0.93 {INR} Normal 0.90-1.10 [facility] Comment on above: Performed By: #### 1 [id number] #### [facility] [address] [place] [address] Prothrombin time (PT) Coag time (PPP) 10.3 s Normal 9.8-12.7 [facility] Comment on above: Performed By: #### 1 [id number] #### [facility] [address] [place] [address] Basic Metabolic Panelon Anion gap molar conc 13 mmol/L Normal 10-20 [facility] Healthcare Comment on above: Performed By: #### 1 [id number] #### [facility] [address] [place] [address] Calcium mass conc 9.5 mg/dL Normal 8.6-10.3 [facility] Comment on above: Performed By: #### 1 [id number] #### [facility] [address] [place] [address] Chloride molar conc 104 mmol/L Normal 98-107 [facility] Comment on above: Performed By: #### 1 [id number] #### [facility] [address] [place] [address] Creatinine mass conc 1.48 mg/dL High 0.50-1.05 [facility] Comment on above: Performed By: #### 1 [id number] #### [facility] [address] [place] [address] GFR/1.73 sq M.predicted MDRD vol rate/area 34 mL/min/{1.73_m2} Normal [facility] Comment on above: Result Comment: Inte rpretation for Chronic Kidney Disease: Stages 1&2 >60 Healthy or potential kidney damage. Mild decrease of GFR. Stage 3 30-59 Moderate decrease of GFR. Stage 4 15-29 Severe decrease of GFR. Stage 5 <15 Kidney failure or on dialysis. Performed By: #### 1 [id number] #### [facility] [address] [place] [address] Glucose mass conc 200 mg/dL High 70-100 [facility] Comment on above: Performed By: #### 1 [id number] #### [facility] [address] [place] [address] HCO3 molar conc (Bld) 27 mmol/L Normal 21-32 [facility] Comment on above: Performed By: #### 1 [id number] #### [facility] [address] [place] [address] Potassium molar conc 4.8 mmol/L Normal 3.5-5.1 [facility] Comment on above: Performed By: #### 1 [id number] #### [facility] [address] [place] [address] Sodium molar conc 139 mmol/L Normal 136-145 [facility] Comment on above: Performed By: #### 1 [id number] #### [facility] [address] [place] [address] Urea nitrogen mass conc 31 mg/dL High 6-23 [facility] Healthcare Comment on above: Performed By: #### 1 [id number] #### [facility] [address] [place] [address] Urea nitrogen/Creatinine mass ratio 21 mg/mg Normal 5-25 [facility] Comment on above: Performed By: #### 1 [id number] #### [facility] [address] [place] [address] CBCon 2018 Erythrocyte distribution width Ratio (RBC) 13.6 % Normal 12.0-15.4 [facility] Comment on above: Performed By: #### 2 [id number] #### [facility] [address] [place] [address] Hematocrit Volume Fraction (Bld) 41.6 % Normal 36.5-46.6 [facility] Comment on above: Performed By: #### 2 [id number] #### [facility] [address] [place] [address] Hemoglobin mass conc (Bld) 13.5 g/dL Normal 11.8-15.3 [facility] Comment on above: Performed By: #### 2 [id number] #### [facility] [address] [place] [address] MCH Entitic mass (RBC) 29.2 pg Normal 27.5-33.0 [facility] Comment on above: Performed By: #### 2 [id number] #### [facility] [address] [place] [address] MCHC mass conc (RBC) 32.5 g/dL Normal 30.1-35.0 [facility] Healthcare Comment on above: Performed By: #### 2 [id number] #### [facility] [address] [place] [address] MCV Entitic volume (RBC) 89.8 fL Normal 85.4-100.0 [facility] Comment on above: Performed By: #### 2 [id number] #### [facility] [address] [place] [address] NRBC Absolute 0.00 10*3/uL Normal [facility] Comment on above: Performed By: #### 2 [id number] #### [facility] [address] [place] [address] NRBC Automated 0.0 /100{WBCs} Normal [facility] Comment on above: Performed By: #### 2 [id number] #### [facility] [address] [place] [address] Platelet mean volume Entitic volume (Bld) 11.9 fL Normal 9.9-12.1 [facility] Comment on above: Performed By: #### 2 [id number] #### [facility] [address] [place] [address] Platelets #/vol (Bld) 282 10*3/uL Normal 155-404 [facility] Healthcare Comment on above: Performed By: #### 2 [id number] #### [facility] [address] [place] [address] RBC #/vol (Bld) 4.63 10*6/uL Normal 3.85-5.10 [facility] Comment on above: Performed By: #### 2 [id number] #### [facility] [address] [place] [address] RDW SD 44.9 fL Normal 39.3-48.6 [facility] Comment on above: Performed By: #### 2 [id number] #### [facility] [address] [place] [address] WBC #/vol (Bld) 12.9 10*3/uL High 4.4-9.9 [facility] Comment on above: Performed By: #### 2 [id number] #### [facility] [address] [place] [address] CHEST 2 VIEWon 01-22-2018 CHEST 2 VIEW DATE OF EXAM: Jan 22 2018 10:00AM CLINICAL HISTORY/ Patient Name: BERNARDINO GUZMAN STUDY: CHEST 2 VIEW; 01/22/2018 10:00 am INDICATION: Post device implant. COMPARISON: None. ACCESSION NUMBER(S): [id number] ORDERING CLINICIAN: TATY HAGEN FINDINGS: CARDIOMEDIASTINAL SILHOUETTE: There is a left-sided dual lead cardiac pacing device with lead tips extending to the right atrium and right ventricle levels respectively. Cardiomegaly and aortic calcifications are present. There is also calcification versus implant material at the mitral annulus level. LUNGS: Inspiratory volume is low. No focal infiltrate. Granulomatous calcifications appear to be present in the left perihilar region. There is slight blunting of the right costophrenic angle which could be due to pleural thickening/scar versus small effusion. ABDOMEN: Upper abdominal surgical clips are noted. BONES: No acute osseous changes. CONCLUSION: IMPRESSION: 1. Left-sided dual lead cardiac pacing device with lead tips extending to the right atrium and right ventricle levels respectively. Mild cardiomegaly. 2. Mild blunting of the right costophrenic angle may be due to pleural thickening/scar versus small effusion. No pneumothorax. Normal [facility] Glucose, WB POCon 01-22-2018 Glucose mass conc 98 mg/dL Normal 70-100 [facility] Comment on above: Performed By: #### 1 [id number] #### [facility] [address] [place] [address] Glucose, WB POCon 01-21-2018 Glucose mass conc 211 mg/dL High 70-100 [facility] Comment on above: Performed By: #### 1 [id number] #### [facility] [address] [place] [address] Glucose mass conc 164 mg/dL High 70-100 [facility] Comment on above: Performed By: #### 1 [id number] #### [facility] [address] [place] [address] Glucose mass conc 139 mg/dL High 70-100 [facility] Comment on above: Performed By: #### 1 [id number] #### [facility] [address] [place] [address] Glucose mass conc 156 mg/dL High 70-100 [facility] Comment on above: Performed By: #### 1 [id number] #### [facility] [address] [place] [address] Glucose mass conc 160 mg/dL High 70-100 [facility] Comment on above: Performed By: #### 1 [id number] #### [facility] [address] [place] [address] Urinalysison 01-21-2018 Appearance Nom (U) Clear Normal Clear [facility] Comment on above: Performed By: #### 1 [id number] #### [facility] [address] [place] [address] Ascorbic Acid Negative Normal Negative [facility] Comment on above: Performed By: #### 1 [id number] #### [facility] [address] [place] [address] Automated Urine Microscopy Not indicated Normal [facility] Comment on above: Performed By: #### 1 [id number] #### [facility] [address] [place] [address] Bilirubin mass conc Negative Normal Negative [facility] Comment on above: Performed By: #### 1 [id number] #### [facility] [address] [place] [address] Blood Negative Normal Negative [facility] Comment on above: Performed By: #### 1 [id number] #### [facility] [address] [place] [address] Color Nom (U) Straw Normal [facility] Comment on above: Performed By: #### 1 [id number] #### [facility] [address] [place] [address] Glucose mass conc >=500 Abnormal Negative [facility] Comment on above: Performed By: #### 1 [id number] #### [facility] [address] [place] [address] Ketones Ql (U) Negative Normal Negative [facility] Comment on above: Performed By: #### 1 [id number] #### [facility] [address] [place] [address] Leukocytes Esterase Negative Normal Negative [facility] Comment on above: Performed By: #### 1 [id number] #### [facility] [address] [place] [address] Nitrite Ql (U) Negative Normal Negative [facility] Comment on above: Performed By: #### 1 [id number] #### [facility] [address] [place] [address] pH (Bld) 5.0 Normal 5.0-9.0 [facility] Comment on above: Performed By: #### 1 [id number] #### [facility] [address] [place] [address] Protein mass conc (U) Negative Normal Negative [facility] Comment on above: Performed By: #### 1 [id number] #### [facility] [address] [place] [address] Specific gravity Relative Density (U) 1.013 Normal 1.003-1.03 5 [facility] Comment on above: Performed By: #### 1 [id number] #### [facility] [address] [place] [address] Urobilinogen Qn (U) <2.0 Normal Negative [facility] Comment on above: Performed By: #### 1 [id number] #### [facility] [address] [place] [address] Vital Signs Date Time Vital Sign Value Performing Clinician Facility 06-29-2024 14:29-0500 Diastolic blood pressure 80 mm[Hg] Taty Hagen MD Work Phone: [facility] 06-29-2024 14:29-0500 Heart rate 83 /min Taty Hagen MD Work Phone: [facility] 06-29-2024 14:29-0500 Systolic blood pressure 110 mm[Hg] Taty Hagen MD Work Phone: [facility] 04-13-2024 10:10-0400 Body height 160.02 cm MD Apurva Tatum Work Phone: [facility] 04-13-2024 10:10-0400 Body mass index (BMI) [Ratio] 24 kg/m2 MD Apurva Tatum Work Phone: [facility] 04-13-2024 10:10-0400 Body temperature 97.6 [degF] MD Apurva Tatum Work Phone: [facility] 04-13-2024 10:10-0400 Body weight 61.68 kg MD Apurva Tatum Work Phone: [facility] 04-13-2024 10:10-0400 Diastolic blood pressure 64 mm[Hg] MD Apurva Tatum Work Phone: [facility] 04-13-2024 10:10-0400 Heart rate 65 /min MD Auprva Tatum Work Phone: [facility] 04-13-2024 10:10-0400 Respiratory rate 16 /min MD Apurva Tatum Work Phone: [facility] 04-13-2024 10:10-0400 SaO2% (BldA) [Mass fraction] 98 % MD Apurva Tatum Work Phone: [facility] 04-13-2024 10:10-0400 Systolic blood pressure 110 mm[Hg] MD Apurva Tatum Work Phone: [facility] 03-23-2024 13:35-0400 Body temperature 96.8 [degF] [facility] 03-23-2024 13:35-0400 Diastolic blood pressure 60 mm[Hg] [facility] 03-23-2024 13:35-0400 Heart rate 57 /min [facility] 03-23-2024 13:35-0400 SaO2% (BldA) [Mass fraction] 97 % [facility] 03-23-2024 13:35-0400 Systolic blood pressure 124 mm[Hg] [facility] 03-08-2024 10:10-0400 Body height 160.02 cm [facility] 03-08-2024 10:10-0400 Body mass index (BMI) [Ratio] 21.2 kg/m2 [facility] 03-08-2024 10:10-0400 Body temperature 96.8 [degF] [facility] 03-08-2024 10:10-0400 Body weight 54.43 kg [facility] 03-08-2024 10:10-0400 Diastolic blood pressure 52 mm[Hg] [facility] 03-08-2024 10:10-0400 Heart rate 74 /min [facility] 03-08-2024 10:10-0400 SaO2% (BldA) [Mass fraction] 98 % [facility] 03-08-2024 10:10-0400 Systolic blood pressure 110 mm[Hg] [facility] 02-05-2024 14:25-0400 Body temperature 97.9 [degF] Robert Hu MD Work Phone: [facility] [facility] 02-05-2024 14:25-0400 Diastolic blood pressure 40 mm[Hg] Robert Hu MD Work Phone: [facility] 02-05-2024 14:25-0400 Heart rate 85 /min Robert Hu MD Work Phone: [facility] 02-05-2024 14:25-0400 Respiratory rate 16 /min Robert Hu MD Work Phone: [facility] 02-05-2024 14:25-0400 SaO2% (BldA) [Mass fraction] 100 % Robert Hu MD Work Phone: [facility] 02-05-2024 14:25-0400 Systolic blood pressure 99 mm[Hg] Robert Hu MD Work Phone: [facility] 02-03-2024 23:14-0400 Heart rate 85 /min Robert Hu MD Work Phone: [facility] 01-30-2024 15:05-0400 Heart rate 102 /min Robert Hu MD Work Phone: [employer] 01-29-2024 15:41-0400 Heart rate 105 /min 3 [facility] 01-29-2024 15:41-0400 Respiratory rate 20 /min 3 [employer] 01-28-2024 03:09-0400 Body height 162.6 cm Robert Hu MD Work Phone: [facility] 01-28-2024 03:09-0400 Body mass index (BMI) [Ratio] 18.02 kg/m2 Robert Hu MD Work Phone: [facility] 01-28-2024 03:09-0400 Body weight 47.63 kg Robert Hu MD Work Phone: [facility] 01-28-2024 01:00-0400 Diastolic blood pressure 52 mm[Hg] Sukumar Lakeisha [facility] 01-28-2024 01:00-0400 Heart rate 99 /min Sukumar Lakeisha [facility] 01-28-2024 01:00-0400 Mean blood pressure 71 mm[Hg] Sukumar Lakeisha [facility] 01-28-2024 01:00-0400 Respiratory rate 18 /min Sukumar Lakeisha [facility] 01-28-2024 01:00-0400 SaO2% (BldA) [Mass fraction] 98 % Sukumar Lakeisha [facility] 01-28-2024 01:00-0400 Systolic blood pressure 110 mm[Hg] Sukumar Lakeisha [facility] 01-28-2024 00:30-0400 Diastolic blood pressure 73 mm[Hg] Sukumar Lakeisha [facility] 01-28-2024 00:30-0400 Heart rate 90 /min Sukumar Lakeisha [facility] 01-28-2024 00:30-0400 Mean blood pressure 86 mm[Hg] Sukumar Lakeisha [facility] 01-28-2024 00:30-0400 Respiratory rate 16 /min Sukumar Lakeisha [facility] 01-28-2024 00:30-0400 SaO2% (BldA) [Mass fraction] 97 % Sukumar Lakeisha [facility] 01-28-2024 00:30-0400 Systolic blood pressure 113 mm[Hg] Sukumar Lakeisha [facility] 01-28-2024 00:00-0400 Body temperature 97.88 [degF] Sukumar Lakeisha [facility] 01-28-2024 00:00-0400 Diastolic blood pressure 69 mm[Hg] Sukumar Lakeisha [facility] 01-28-2024 00:00-0400 Heart rate 101 /min Sukumar Lakeisha [facility] 01-28-2024 00:00-0400 Mean blood pressure 84 mm[Hg] Sukumar Lakeisha [facility] 01-28-2024 00:00-0400 Systolic blood pressure 115 mm[Hg] Sukumar Lakeisha [facility] 01-27-2024 21:24-0400 Body temperature 98.24 [degF] Sukumar Lakeisha [facility] 01-27-2024 21:24-0400 Heart rate 82 /min Sukumar Lakeisha [facility] 01-27-2024 21:24-0400 Respiratory rate 20 /min Sukumar Lakeisha [facility] 01-27-2024 21:08-0400 Body temperature 98.06 [degF] Sukumar Lakeisha [facility] 01-27-2024 21:08-0400 Heart rate 105 /min Sukumar Lakeisha [facility] 01-27-2024 21:08-0400 Respiratory rate 20 /min Sukumar Lakeisha [facility] 06-27-2023 15:07-0500 Body height 154.9 cm Taty Hagen MD Work Phone: [facility] 06-27-2023 15:07-0500 Body mass index (BMI) [Ratio] 22.3 kg/m2 Taty Hagen MD Work Phone: [facility] 06-27-2023 15:07-0500 Body weight 53.52 kg Taty Hagen MD Work Phone: [facility] 06-27-2023 15:07-0500 Diastolic blood pressure 72 mm[Hg] Taty Hagen MD Work Phone: [facility] 06-27-2023 15:07-0500 Heart rate 101 /min Taty Hagen MD Work Phone: [facility] 06-27-2023 15:07-0500 Systolic blood pressure 122 mm[Hg] Taty Hagen MD Work Phone: [facility] 03-26-2023 13:27-0400 Blood Pressure Location Lavell Gomez [facility] 03-26-2023 13:27-0400 Body temperature 97.7 [degF] Lavell Gomez [facility] 03-26-2023 13:27-0400 Diastolic blood pressure 78 mm[Hg] Lavell Gomez [facility] 03-26-2023 13:27-0400 Heart rate 77 /min Lavell Gomez [facility] 03-26-2023 13:27-0400 SaO2% (BldA) [Mass fraction] 99 % Lavell Gomez [facility] 03-26-2023 13:27-0400 Systolic blood pressure 138 mm[Hg] Lavell Gomez [facility] 01-06-2023 11:45-0400 Body height 160.02 cm Merline Jackson Other [employer] Other 01-06-2023 11:45-0400 Body mass index (BMI) [Ratio] 22.14 kg/m2 Merline Jackson Other [employer] Other 01-06-2023 11:45-0400 Body temperature 97.4 [degF] Merline Jackson Other [employer] Other 01-06-2023 11:45-0400 Body weight 56.7 kg Merline Jackson Other [employer] Other 01-06-2023 11:45-0400 Diastolic blood pressure 50 mm[Hg] Merline Jackson Other [employer] Other 01-06-2023 11:45-0400 SaO2% (BldA) [Mass fraction] 99 % Merline Jackson Other [employer] Other 01-06-2023 11:45-0400 Systolic blood pressure 104 mm[Hg] Merline Jackson Other [employer] Other 12-24-2022 14:58-0400 Body height 154.94 cm [employer] Work Phone: [facility] DO Work Phone: 12-24-2022 14:58-0400 Body mass index (BMI) [Ratio] 23.43 kg/m2 [employer] Work Phone: [facility] DO Work Phone: 12-24-2022 14:58-0400 Body surface area Derived from formula 1.54 m2 [employer] Work Phone: [facility] [employer] [facility] DO Work Phone: 12-24-2022 14:58-0400 Body weight 56.25 kg Apurva Yepez Deepti Work Phone: [facility] DO Work Phone: 12-24-2022 14:58-0400 Diastolic blood pressure 64 mm[Hg] Apurva Yepez Deepti Work Phone: [facility] DO Work Phone: 12-24-2022 14:58-0400 Heart rate 95 /min Apurva Yepez Deepti Work Phone: [facility] DO Work Phone: 12-24-2022 14:58-0400 Systolic blood pressure 102 mm[Hg] Apurva Yepez Deepti Work Phone: [facility] DO Work Phone: 10-11-2022 09:30-0400 Diastolic blood pressure 74 mm[Hg] Mario Hensley DPM Work Phone: [email or web address] 10-11-2022 09:30-0400 Heart rate 68 /min Mario Hensley DPM Work Phone: [facility] [employer] 10-11-2022 09:30-0400 Respiratory rate 12 /min Mario Hensley DPM Work Phone: [email or web address] 10-11-2022 09:30-0400 SaO2% (BldA) [Mass fraction] 98 % Mario Hensley DPM Work Phone: [email or web address] 10-11-2022 09:30-0400 Systolic blood pressure 137 mm[Hg] Mario Hensley DPM Work Phone: [facility] [employer] 10-11-2022 08:45-0400 Body temperature 97.39 [degF] Mario Hensley DPM Work Phone: [email or web address] 10-11-2022 06:51-0400 Body height 154.9 cm Mario Hensley DPM Work Phone: [facility] [employer] 10-11-2022 06:51-0400 Body mass index (BMI) [Ratio] 24.94 kg/m2 Mario Hensley DPM Work Phone: [facility] [employer] 10-11-2022 06:51-0400 Body weight 59.88 kg Mario Hensley DPM Work Phone: [facility] 09-26-2022 13:41-0400 Blood Pressure Location Ty SALAM [facility] 09-26-2022 13:41-0400 Diastolic blood pressure 68 mm[Hg] Ty SALAM [facility] 09-26-2022 13:41-0400 Heart rate 58 /min Ty SALAM [facility] 09-26-2022 13:41-0400 Respiratory rate 16 /min Ty SALAM [facility] 09-26-2022 13:41-0400 Systolic blood pressure 112 mm[Hg] Ty SALAM [facility] 09-24-2022 11:45-0400 Body height 160.02 cm Merline Jackson Other [employer] Other 09-24-2022 11:45-0400 Body mass index (BMI) [Ratio] 26.75 kg/m2 Merline Jackson Other [employer] Other 09-24-2022 11:45-0400 Body temperature 97.2 [degF] Merline Jackosn Other [employer] Other 09-24-2022 11:45-0400 Body weight 68.49 kg Merline Jackson Other [employer] [facility] [employer] Other 09-24-2022 11:45-0400 Diastolic blood pressure 62 mm[Hg] Merline Jackson Other [employer] Other 09-24-2022 11:45-0400 SaO2% (BldA) [Mass fraction] 98 % Merline Jackson Other [employer] Other 09-24-2022 11:45-0400 Systolic blood pressure 108 mm[Hg] Merline Jackson Other [facility] [employer] Other 09-18-2022 14:55-0500 Diastolic blood pressure 77 mm[Hg] MD Mixon [facility] 09-18-2022 14:55-0500 Heart rate 62 /min [facility] 14:55-0500 Respiratory rate 16 /min [facility] 09-18-2022 14:55-0500 SaO2% (BldA) [Mass fraction] 98 % Apurva [facility] 09-18-2022 14:55-0500 Systolic blood pressure 131 mm[Hg] [facility]-18-2022 09:50-0500 Inhaled oxygen flow rate 2 L/min MD Mixon [facility] 09-18-2022 07:17-0500 Body height 162.56 cm [facility] 09-18-2022 07:17-0500 Body weight 65.77 kg MD Mixon [facility] 08-30-2022 12:00-0500 Diastolic blood pressure 50 mm[Hg] Stan Gonzalez [facility] 08-30-2022 12:00-0500 Heart rate 69 /min Stan Carlos [facility] 08-30-2022 12:00-0500 Mean blood pressure 76 mm[Hg] Stan Carlos [facility] 08-30-2022 12:00-0500 Systolic blood pressure 128 mm[Hg] Stan Carlos [facility] 08-30-2022 11:35-0500 Body temperature 97.7 [degF] Stan Carlos [facility] 08-30-2022 11:35-0500 Diastolic blood pressure 53 mm[Hg] Stan Carlos [facility] 08-30-2022 11:35-0500 Heart rate 64 /min Stan Carlos [facility] 08-30-2022 11:35-0500 Mean blood pressure 80 mm[Hg] Stan Carlos [facility] 08-30-2022 11:35-0500 Respiratory rate 15 /min Stan Carlos [facility] 08-30-2022 11:35-0500 SaO2% (BldA) [Mass fraction] 98 % Stan Carlos [facility] 08-30-2022 11:35-0500 Systolic blood pressure 133 mm[Hg] Stan Carlos [facility] 08-30-2022 10:53-0500 Diastolic blood pressure 60 mm[Hg] Stan Carlos [facility] 08-30-2022 10:53-0500 Heart rate 60 /min Stan Carlos [facility] 08-30-2022 10:53-0500 Mean blood pressure 80 mm[Hg] Stan Carlos [facility] 08-30-2022 10:53-0500 Respiratory rate 16 /min Stan Gonzalez [facility] 08-30-2022 10:53-0500 Systolic blood pressure 121 mm[Hg] Stan Gonzalez [facility] 08-30-2022 09:44-0500 Body temperature 97.34 [degF] Stan Gonzalez [facility] 08-30-2022 09:44-0500 Heart rate 66 /min Stan Gonzalez [facility] 08-30-2022 09:35-0500 Body temperature 97.34 [degF] Stan Gonzalez [facility] 08-30-2022 09:35-0500 Heart rate 83 /min Stan Gonzalez [facility] 08-28-2022 13:40-0500 Diastolic blood pressure 52 mm[Hg] [facility] 13:40-0500 Heart rate 66 /min [facility] 13:40-0500 Respiratory rate 16 /min [facility] 08-28-2022 13:40-0500 SaO2% (BldA) [Mass fraction] 100 % [facility] 08-28-2022 13:40-0500 Systolic blood pressure 128 mm[Hg] MD Apurva Tatum [facility] 08-28-2022 10:00-0500 Inhaled oxygen flow rate 3 L/min [facility] 08-28-2022 07:21-0500 Body height 162.56 cm [facility] 08-28-2022 07:21-0500 Body weight 65.77 kg [facility] 08-19-2022 11:45-0500 Body height 160.02 cm Josh Dassiria Other [employer] Other 08-19-2022 11:45-0500 Body mass index (BMI) [Ratio] 26.75 kg/m2 Josh Valentinotrinidad Other [employer] Other 08-19-2022 11:45-0500 Body temperature 97.8 [degF] Josh Dassiria Other [employer] Other 08-19-2022 11:45-0500 Body weight 68.49 kg Josh Valentinotrinidad Other [employer] Other 08-19-2022 11:45-0500 Diastolic blood pressure 52 mm[Hg] Josh Mauro Other [employer] Other 08-19-2022 11:45-0500 SaO2% (BldA) [Mass fraction] 98 % Josh Zunilda Other [employer] Other 08-19-2022 11:45-0500 Systolic blood pressure 110 mm[Hg] Josh Dasretrinidad Other [employer] Other 07-24-2022 12:00-0500 Hourly Rounding Edgar BARROS [facility] 07-24-2022 12:00-0500 Promise to Return Edgar BARROS [facility] 07-24-2022 11:00-0500 Blood Pressure Location Edgar GAOLIN [facility] 07-24-2022 11:00-0500 Body temperature 98.06 [degF] Edgar FIORELLA [facility] 07-24-2022 11:00-0500 Diastolic blood pressure 66 mm[Hg] Edgar FIORELLA [facility] 07-24-2022 11:00-0500 Heart rate 79 /min Edgar FIORELLA [facility] 07-24-2022 11:00-0500 Hourly Rounding Edgar FIORELLA [facility] 07-24-2022 11:00-0500 Promise to Return Edgar FIORELLA [facility] 07-24-2022 11:00-0500 Respiratory rate 18 /min Edgar FIORELLA [facility] 07-24-2022 11:00-0500 SaO2% (BldA) [Mass fraction] 98 % Edgarmabel PRUETTSLIN [facility] 07-24-2022 11:00-0500 Systolic blood pressure 102 mm[Hg] Edgar FIORELLA [facility] 07-24-2022 10:00-0500 Hourly Rounding Edgar FIORELLA [facility] 07-24-2022 10:00-0500 Promise to Return Edgar FIORELLA [facility] 07-24-2022 07:49-0500 gluc 88 mg/dL Edgar FIORELLA [facility] 07-24-2022 07:00-0500 Body temperature 97.16 [degF] Edgar FIORELLA [facility] 07-24-2022 07:00-0500 Diastolic blood pressure 77 mm[Hg] Edgar FOIRELLA [facility] 07-24-2022 07:00-0500 Heart rate 84 /min Edgar FIORELLA [facility] 07-24-2022 07:00-0500 Mean blood pressure 97 mm[Hg] Edgar FIORELLA [facility] 07-24-2022 07:00-0500 Systolic blood pressure 138 mm[Hg] Edgar FIORELLA [facility] 07-24-2022 02:55-0500 Body temperature 97.88 [degF] Edgar FIORELLA [facility] 07-24-2022 02:55-0500 Diastolic blood pressure 73 mm[Hg] Edgar FIORELLA [facility] 07-24-2022 02:55-0500 Heart rate 64 /min Edgar FIORELLA [facility] 07-24-2022 02:55-0500 Mean blood pressure 93 mm[Hg] Edgar FIORELLA [facility] 07-24-2022 02:55-0500 SaO2% (BldA) [Mass fraction] 97 % Edgar FIORELLA [facility] 07-24-2022 02:55-0500 Systolic blood pressure 133 mm[Hg] Edgar FIORELLA [facility] 07-23-2022 21:44-0500 gluc 179 mg/dL Edgar FIORELLA [facility] 07-23-2022 19:14-0500 Mean blood pressure 90 mm[Hg] Edgar FIORELLA [facility] 07-23-2022 19:14-0500 Respiratory rate 18 /min Edgar FIORELLA [facility] 07-23-2022 19:14-0500 Body temperature 97.7 [degF] Edgar FIORELLA [facility] 07-23-2022 17:13-0500 Body temperature 98.24 [degF] Edgar FIORELLA [facility] 07-23-2022 17:13-0500 Mean blood pressure 101 mm[Hg] Edgar FIORELLA [facility] 07-23-2022 17:00-0500 Blood Pressure Location Edgarmabel PRUETTSLIN [facility] 07-23-2022 11:08-0500 Mean blood pressure 95 mm[Hg] Edgar FIORELLA [facility] 07-22-2022 17:39-0500 gluc 221 mg/dL Edgar FIORELLA [facility] 07-21-2022 21:12-0500 Heart rate 104 /min Edgar FIORELLA [facility] 07-21-2022 01:00-0500 Body temperature 98.6 [degF] Edgar FIORELLA [facility] 07-21-2022 00:55-0500 Mean blood pressure 98 mm[Hg] Edgra FIORELLA [facility] 07-21-2022 00:55-0500 Respiratory rate 15 /min Edgar FIORELLA [facility] 07-20-2022 23:30-0500 Respiratory rate 31 /min Edgar FIORELLA [facility] 07-20-2022 22:55-0500 Respiratory rate 14 /min Edgar FIORELLA [facility] 07-20-2022 21:57-0500 Heart rate 138 /min Edgar FIORELLA [facility] 06-24-2022 10:31-0500 Blood Pressure Location Farida Joya [facility] 06-24-2022 10:31-0500 Diastolic blood pressure 74 mm[Hg] Farida Joya [facility] 06-24-2022 10:31-0500 Heart rate 83 /min Farida Joya [facility] 06-24-2022 10:31-0500 Respiratory rate 16 /min Farida Joya [facility] 06-24-2022 10:31-0500 Systolic blood pressure 127 mm[Hg] Farida Joya [facility] 05-28-2022 15:32-0500 Body height 154.94 cm Apurva M Deepti Work Phone: [facility] [address] DO Work Phone: 05-28-2022 15:32-0500 Body mass index (BMI) [Ratio] 25.51 kg/m2 Apurva M Deepti Work Phone: [facility] DO Work Phone: 05-28-2022 15:32-0500 Body surface area Derived from formula 1.6 m2 Apurva M Deepti Work Phone: [facility] DO Work Phone: 05-28-2022 15:32-0500 Body weight 61.24 kg Apurva M Deepti Work Phone: [facility] DO Work Phone: 05-28-2022 15:32-0500 Diastolic blood pressure 60 mm[Hg] Apurva M Deepti Work Phone: [facility] DO Work Phone: 05-28-2022 15:32-0500 Heart rate 95 /min Apurva M Deepti Work Phone: [facility] DO Work Phone: 05-28-2022 15:32-0500 Systolic blood pressure 110 mm[Hg] Apurva M Deepti Work Phone: [facility] DO Work Phone: 01-30-2022 23:33-0400 Diastolic blood pressure 112 mm[Hg] Kaylinn Dokken [facility] 01-30-2022 23:33-0400 Heart rate 79 /min Kaylinn Dokken [facility] 01-30-2022 23:33-0400 Mean blood pressure 132 mm[Hg] Kaylinn Dokken [facility] 01-30-2022 23:33-0400 Respiratory rate 18 /min Kaylinn Dokken [facility] 01-30-2022 23:33-0400 SaO2% (BldA) [Mass fraction] 95 % Kaylinn Dokken [facility] 01-30-2022 23:33-0400 Systolic blood pressure 171 mm[Hg] Kaylinn Dokken [facility] 01-30-2022 22:09-0400 Diastolic blood pressure 96 mm[Hg] Kaylinn Dokken [facility] 01-30-2022 22:09-0400 Heart rate 78 /min Kaylinn Dokken [facility] 01-30-2022 22:09-0400 Mean blood pressure 116 mm[Hg] Kaylinn Dokken [facility] 01-30-2022 22:09-0400 Respiratory rate 18 /min Kaylinn Dokken [facility] 01-30-2022 22:09-0400 SaO2% (BldA) [Mass fraction] 97 % Kaylinn Dokken [facility] 01-30-2022 22:09-0400 Systolic blood pressure 156 mm[Hg] Kaylinn Dokken [facility] 01-30-2022 21:57-0400 Diastolic blood pressure 123 mm[Hg] Kaylinn Dokken [facility] 01-30-2022 21:57-0400 Heart rate 65 /min Kaylinn Dokken [facility] 01-30-2022 21:57-0400 Mean blood pressure 128 mm[Hg] Kaylinn Dokken [facility] 01-30-2022 21:57-0400 Respiratory rate 18 /min Kaylinn Dokken [facility] 01-30-2022 21:57-0400 SaO2% (BldA) [Mass fraction] 94 % Kaylinn Dokken [facility] 01-30-2022 21:57-0400 Systolic blood pressure 139 mm[Hg] Kaylinn Dokken [facility] 01-30-2022 19:18-0400 Body temperature 98.06 [degF] Kaylinn Dokken [facility] 11-27-2021 14:58-0400 Body height 154.94 cm Apurva Tatum Work Phone: [facility] DO Work Phone: 11-27-2021 14:58-0400 Body mass index (BMI) [Ratio] 29.1 kg/m2 Apurva M Deepti Work Phone: [facility] DO Work Phone: 11-27-2021 14:58-0400 Body surface area Derived from formula 1.69 m2 Apurva M Deepti Work Phone: [facility] DO Work Phone: 11-27-2021 14:58-0400 Body weight 69.85 kg Apurva M Deepti Work Phone: [facility] DO Work Phone: 11-27-2021 14:58-0400 Diastolic blood pressure 64 mm[Hg] Apurva M Deepti Work Phone: [facility] DO Work Phone: 11-27-2021 14:58-0400 Heart rate 89 /min Apurva M Deepti Work Phone: [facility] DO Work Phone: 11-27-2021 14:58-0400 Systolic blood pressure 118 mm[Hg] Apurva M Deepti Work Phone: [facility] DO Work Phone: 05-29-2021 15:40-0500 Body height 154.94 cm Apurva M Deepti Work Phone: [facility] DO Work Phone: 05-29-2021 15:40-0500 Body mass index (BMI) [Ratio] 29.67 kg/m2 Apurva M Deepti Work Phone: [facility] DO Work Phone: 05-29-2021 15:40-0500 Body surface area Derived from formula 1.7 m2 Apurva [employer] Work Phone: [facility] DO Work Phone: 05-29-2021 15:40-0500 Body weight 71.22 kg Apurva [facility] Deepti Work Phone: [facility] DO Work Phone: 05-29-2021 15:40-0500 Diastolic blood pressure 54 mm[Hg] Apurva Lucho Deepti Work Phone: [facility] DO Work Phone: 05-29-2021 15:40-0500 Heart rate 69 /min Apurva [employer] Work Phone: [facility] DO Work Phone: 05-29-2021 15:40-0500 Systolic blood pressure 110 mm[Hg] Apurva Lucho Deepti Work Phone: [facility] DO Work Phone: Encounters Encounter Date Encounter Type Care Provider Facility Start: 01-04-2025 End: 01-04-2025 ambulatory TATY HAGEN [facility] Start: 01-04-2025 End: 01-04-2025 Subsequent hospital visit by physician Danica [facility] Comment on above: Pacemaker; Sinus node dysfunction (Multi) Start: 09-29-2024 End: 09-29-2024 ambulatory TATY HAGEN [facility] Start: 09-29-2024 End: 09-29-2024 Subsequent hospital visit by physician Danica [facility] Comment on above: Pacemaker; Sinus node dysfunction (Multi) Start: 06-29-2024 End: 06-29-2024 Office outpatient visit 25 minutes Taty Hagen MD Work Phone: [facility] Comment on above: Pacemaker (Primary D x); Sinus node dysfunction (Multi); SOB (shortness of breath) on exertion; Pure hypercholesterolemia; Permanent atrial fibrillation (Multi); Mixed hyperlipidemia; Hypertension, unspecified type; Complete heart block Start: 06-29-2024 End: 06-29-2024 Subsequent hospital visit by physician Danica [facility] Comment on above: Permanent atrial fib rillation (Multi); Pacemaker Start: 06-29-2024 End: 06-29-2024 ambulatory [facility] Start: 04-13-2024 End: 04-13-2024 ambulatory MD Apurva Tatum Work Phone: [facility] Work Phone: Start: 04-13-2024 End: 04-13-2024 Patient encounter procedure MD Apurva Tatum Work Phone: [facility] V[facility] Work Phone: Start: 04-09-2024 End: 04-09-2024 Patient encounter procedure MD Apurva Tatum Work Phone: [facility] [place] Work Phone: Start: 04-09-2024 End: 04-09-2024 ambulatory Apurva Tatum Facility:[facility] Start: 04-06-2024 End: 04-06-2024 ambulatory [facility] Start: 04-06-2024 End: 04-06-2024 Subsequent hospital visit by physician Danica [facility] Comment on above: Pacemaker; Sinus node dysfunction (Multi) Start: 03-31-2024 End: 03-31-2024 Subsequent hospital visit by physician Marc Op Xray 4 [facility] Radiology Comment on above: Closed odontoid frac ture, initial encounter (HCC) Start: 03-31-2024 End: 04-04-2024 Office outpatient visit 15 minutes Negrito Maya MD Work Phone: [facility] Orthopedic Spine Comment on above: Closed odontoid frac ture, initial encounter (HCC) (Primary Dx) Start: 03-31-2024 End: 04-04-2024 ambulatory UNKNOWN PROVIDER Facility:[facility] Start: 03-23-2024 End: 03-23-2024 Patient encounter procedure [facility] Vascular Surgery Work Phone: Start: 03-23-2024 End: 03-23-2024 ambulatory Merline Jackson [facility] Work Phone: Start: 03-08-2024 End: 03-08-2024 ambulatory [facility] Work Phone: Start: 03-08-2024 End: 03-08-2024 Patient encounter procedure [facility] Vascular Surgery Work Phone: Start: 2024 End: 02-22-2024 Office outpatient visit 25 minutes Negrito Maya MD Work Phone: [facility] Orthopedic Spine Comment on above: Closed odontoid frac ture, initial encounter (HCC) (Primary Dx) Start: 2024 End: 2024 Subsequent hospital visit by physician Op Xray 4 [facility] Radiology Comment on above: Closed odontoid frac ture, initial encounter (HCC) Start: 2024 End: 02-22-2024 ambulatory APURVA DEEPTI Facility:[facility] Start: 02-06-2024 End: 02-06-2024 Telephone encounter Christin Camara WALLPAPER SCRAPER-WESTERN PHILOSOPHY PROFESSOR Work Phone: [facility] Geriatrics Start: 01-29-2024 End: 01-29-2024 Evaluation and management of inpatient Linda Shook MD Work Phone: [facility] Radiology Start: 01-28-2024 End: 01-28-2024 E.D. Visit Kizzy RHODES, IT OPERATIONS SPECIALIST [facility] Social Work Comment on above: Trauma/complex Medic al Situation Start: 01-28-2024 End: 02-05-2024 Evaluation and management of inpatient APURVA DEEPTI Facility:[facility] Start: 01-28-2024 Emergency department patient visit UNKNOWN PROVIDER Facility:[facility] Start: 01-28-2024 End: 02-05-2024 Evaluation and management of inpatient Robert Hu MD Work Phone: [facility] Comment on above: Closed odontoid frac ture, initial encounter (HCC) (Primary Dx); Epidural hematoma (HCC); Atherosclerotic cardiovascular disease; Unspecified atrial fibrillation (HCC); Unspecified right bundle-branch block; Left anterior fascicular block; Bifascicular block; Abnormal electrocardiogram (ECG) (EKG); Presence of cardiac pacemaker; Presence of cardiac pacemaker Start: 01-27-2024 End: 01-28-2024 Emergency department patient visit Sukumar Suazo [facility] Start: 12-30-2023 End: 12-30-2023 ambulatory [facility] Ambulatory Start: 12-30-2023 End: 12-30-2023 Subsequent hospital visit by physician Danica [facility] Comment on above: Pacemaker Start: 12-12-2023 ambulatory Edmond Akkina Facility:[facility] Start: 12-12-2023 End: 12-12-2023 ambulatory Edmond Akkina Facility:[facility] Start: 12-12-2023 End: 12-12-2023 Lab Drop off Edmond Akkina [facility] Start: 12-11-2023 End: 12-12-2023 ambulatory Edmond Akkina Facility:[facility] Start: 12-11-2023 End: 12-11-2023 Patient encounter procedure Edmond Akkina [facility] Start: 11-18-2023 End: 11-18-2023 ambulatory MARIO HENSLEY Not Available Start: 11-10-2023 End: 11-10-2023 ambulatory MARIO VASQUEZ Not Available Start: 11-04-2023 End: 11-05-2023 ambulatory Apurva Tatum Facility:[facility] Start: 11-04-2023 End: 11-04-2023 ambulatory APURVA TATUM Not Available Start: 11-04-2023 End: 11-04-2023 Patient encounter procedure Apurva Tatum [facility] Start: 10-02-2023 End: 10-02-2023 Subsequent hospital visit by physician Danica [facility] Comment on above: Pacemaker Start: 08-05-2023 End: 08-05-2023 ambulatory APURVA Yepez DEEPTI Not Available Start: 07-21-2023 ambulatory TATY HAGEN Facility:[facility] Start: 07-21-2023 End: 03-29-2024 ambulatory TATY HAGEN Facility:[facility] Start: 07-21-2023 End: 03-29-2024 Recurring TATY HAGEN [facility] Start: 06-27-2023 End: 06-27-2023 Office outpatient visit 25 minutes Taty Hagen MD Work Phone: [facility] Comment on above: Pacemaker (Primary D x); Permanent atrial fibrillation (CMS/HCC); Sinus node dysfunction (CMS/HCC); Complete heart block (CMS/HCC); Near syncope; Mixed hyperlipidemia; Never smoked cigarettes; BMI 22.0-22.9, adult; Encounter for medication review and counseling; Encounter to discuss treatment options Start: 06-27-2023 End: 06-27-2023 Subsequent hospital visit by physician Danica [facility] Comment on above: Cardiac pacemaker in situ; Syncope and collapse; Sinoatrial node dysfunction (CMS/HCC) Start: 05-23-2023 End: 05-24-2023 ambulatory Edmond Akkina Facility:[facility] Start: 05-08-2023 End: 05-09-2023 ambulatory Apurva Tatum Facility:[facility] Start: 05-08-2023 End: 05-08-2023 Patient encounter procedure Apurva Tatum [facility] Start: 03-28-[address] Apurva Snider Facility:[facility] Start: 03-26-2023 End: 03-27-2023 ambulatory Lavell Gomez Facility:[facility] Start: 03-26-2023 End: 03-26-2023 Patient encounter procedure Lavell Gomez [facility] Start: 03-26-2023 End: 03-27-2023 ambulatory Lavell Gomez Facility:[facility] Start: 03-26-2023 End: 03-26-2023 Lab Drop off Lavell Gomez [facility] Start: 03-26-2023 End: 03-26-2023 Patient encounter procedure Lavell Gomez [facility] Start: 03-14-2023 Chart Update Apurva Vang s Work Phone: [facility] DO Work Phone: Start: 01-25-2023 Chart Update Apurva Vang s Work Phone: [facility] DO Work Phone: Start: 01-23-2023 End: 01-24-2023 ambulatory Edmond Akkina Facility:[facility] Start: 01-23-2023 End: 01-23-2023 Lab Drop off Edmond Akkina [facility] Start: 01-22-2023 End: 01-23-2023 ambulatory Edmond Akkina Facility:[facility] Start: 01-22-2023 End: 01-22-2023 Patient encounter procedure Edmond Akkina [facility] Start: 01-06-2023 End: 01-06-2023 Patient encounter procedure MD Apurva Tatum [facility] Start: 01-06-2023 End: 01-06-2023 ambulatory MD Apurva Tatum [facility] Work Phone: Start: 01-03-2023 Chart Update Apurva Vang s Work Phone: [facility] DO Work Phone: Start: 12-24-[address] Apurva Snider Facility:[id number] Start: 12-18-2022 ambulatory [facility] Nafisa Alvarado Facility:CD:[id number] Start: 11-18-2022 End: 11-18-2022 Off[facility]Site [facility] Start: 11-04-2022 Chart Update Apurva Vang s Work Phone: [facility] DO Work Phone: Start: 10-11-2022 End: 10-11-2022 ambulatory [facility] Start: 10-11-2022 End: 10-11-2022 Subsequent hospital visit by physician Mario Hensley [facility] Work Phone: [facility] Comment on above: Ulcer of left heel, limited to breakdown of skin (HCC) Start: 10-07-2022 End: 10-08-2022 ambulatory [facility] Start: 10-07-2022 End: 10-07-2022 Subsequent hospital visit by physician Jag Novoa [facility]MIT Comment on above: Arrived Start: 10-06-[address] Apurva Snider Facility:[id number] Start: 09-26-2022 End: 09-26-2022 Lab Drop off Melony CARO [facility] Start: 09-26-2022 End: 09-26-2022 Patient encounter procedure Melony CARO [facility] Start: 09-24-2022 End: 09-24-2022 ambulatory Merline Jackson Other [facility] Other Start: 09-24-2022 Follow-up encounter Merline Figueroaroberta Thomas [facility] Vascular Surgery Start: 09-18-2022 End: 09-18-2022 Admission to same day surgery center MD Apurva Tatum [facility]Inter[facility] Radiology Work Phone: Start: 09-18-2022 End: 09-18-2022 ambulatory MD Apurva Tatum [facility] Work Phone: Start: 09-13-2022 End: 09-13-2022 Patient encounter procedure Edmond Mathewrosendovanesa [facility] Start: 09-12-2022 Chart Update Apurva thornton Work Phone: [facility] DO Work Phone: Start: 09-12-2022 End: 09-12-2022 ambulatory MD Apurva Tatum [facility] Work Phone: Start: 09-12-2022 End: 09-12-2022 Patient encounter procedure MD Apurva Tatum [facility] [place] Work Phone: Start: 08-30-[address] Apurva Snider Facility:[id number] Start: 08-30-2022 End: 08-30-2022 Emergency department patient visit Stan Gonzalez [facility] Start: 08-28-2022 End: 08-28-2022 Admission to same day surgery center MD Apurva Tatum [facility] Work Phone: Start: 08-28-2022 End: 08-28-2022 ambulatory MD Apurva Tatum [facility] Work Phone: Start: 08-19-2022 End: 08-19-2022 ambulatory Josh Mauro Other [facility] Other Start: 08-19-2022 Office outpatient vi sit 25 minutes Josh Mauro [facility] Vascular Surgery Start: 07-30-2022 Chart Update Apurva thornton Work Phone: [facility] DO Work Phone: Start: 07-20-2022 End: 07-24-2022 Evaluation and management of inpatient Edgar BARROS [facility] Start: 07-18-2022 Rx Renewal Apurva Vang s Work Phone: [facility] 250 DO Work Phone: Start: 07-16-2022 End: 09-18-2023 Recurring TATY HAGEN [facility] Start: 06-28-2022 Chart Update Apurva Vang s Work Phone: [facility] DO Work Phone: Start: 06-27-2022 End: 07-06-2022 Pre-admission assessment Perez Roberts [facility] Start: 06-24-2022 End: 06-24-2022 Lab Drop off Farida Joya [facility] Start: 06-24-2022 End: 06-24-2022 Patient encounter procedure Farida Cota [facility] Start: 06-14-2022 Chart Update Apurva Yepez Ruggle s Work Phone: [facility] DO Work Phone: Start: 05-30-2022 Chart Update Apurva Yepez Ruggle s Work Phone: [facility] DO Work Phone: Start: 05-28-2022 Current tobacco non- user cad cap copd pv dm Apurva Diezgles Work Phone: [facility] DO Work Phone: Start: 05-28-2022 ambulatory Taty Hagen [facility] ity: Start: 05-20-2022 End: 05-20-2022 Patient encounter procedure Edmond Arias [facility] Start: 04-29-2022 Chart Update Apurva Yepez Ruggle s [facility] Work Phone: Start: 04-22-2022 Rx Renewal Apurva Diezgle s Work Phone: [facility] 250 DO Work Phone: Start: 04-09-[address] Taty Hagen Facility:[id number] Start: 04-01-2022 Chart Update Apurva Yepez Ruggle s Work Phone: [facility] 3 DO Work Phone: Start: 03-14-2022 Chart Update Apurva Yepez Ruggle s Work Phone: [facility] DO Work Phone: Start: 02-28-2022 Chart Update Apurva M Ruggle s Work Phone: [facility] 320 DO Work Phone: Start: 01-30-2022 End: 01-30-2022 Emergency department patient visit Paul Mccall [facility] Start: 01-02-2022 End: 01-02-2022 Lab Drop off Edmond Akkina [facility] Start: 01-01-2022 End: 01-01-2022 Patient encounter procedure Edmond Akkina [facility] Start: 12-03-2021 Chart Update Apurva Vang s Work Phone: [facility] 3 DO Work Phone: Start: 11-27-2021 Current tobacco non- user cad cap copd pv dm Apurva Tatum Work Phone: [facility] 320 DO Work Phone: Start: 11-27-[address] Apurva Snider Facility: Start: 11-19-2021 Chart Update Apurva Munoze s Work Phone: [facility] 3 DO Work Phone: Start: 11-08-2021 Chart Update Apurva Diezgle s Work Phone: [facility] 320 DO Work Phone: Start: 11-05-2021 End: 11-05-2021 Patient encounter procedure Apurva Tatum [facility] Start: 10-19-2021 Chart Update Apurva M Ruggle s Work Phone: [facility] DO Work Phone: Start: 09-20-2021 Chart Update Apurva Yepez Ruggle s Work Phone: [facility] DO Work Phone: Start: 08-30-2021 Chart Update Apurva Yepez Ruggle s Work Phone: [facility] DO Work Phone: Start: 08-20-2021 Rx Renewal Apurva Yepez Ruggle s Work Phone: [facility] 3 DO Work Phone: Start: 08-03-2021 Chart Update Apurva Yepez Ruggle s Work Phone: [facility] Work Phone: Start: 07-13-2021 Result Review Apurva Yepez Ruggle s Work Phone: [facility] DO Work Phone: Start: 05-30-2021 Chart Update Apurva Yepez Ruggle s Work Phone: [facility] Work Phone: Start: 05-29-2021 Current tobacco non- user cad cap copd pv dm Apurva Yepez Deepti Work Phone: [facility] DO Work Phone: Start: 05-18-2021 AUDIT Ana Rosa Rodriguez Work Phone: [facility] DO Work Phone: Start: 05-04-2021 Telephone encounter Ana Rosa Darden Work Phone: [facility] DO Work Phone: Start: 09-22-2019 End: 09-23-2019 Patient encounter procedure ANA ROSA RODRIGUEZ Facility:[id number] Start: 11-24-2018 Patient encounter procedure TATY HAGEN Facility:[facility] Start: 07-17-2018 Patient encounter procedure TATY HAGEN Facility:[facility] Start: 05-26-2018 Patient encounter procedure TATY HAGEN Facility:[facility] Start: 05-19-2018 Patient encounter procedure TATY HAGEN Facility:[facility] Start: 02-19-2018 End: 02-20-2018 Patient encounter procedure TATY HAGEN Facility:[facility] Start: 2018 Patient encounter procedure TATY HAGEN Facility:[id number] Start: 2018 Patient encounter procedure TATY HAGEN Facility:[facility] Start: 01-21-2018 End: 01-22-2018 Patient encounter procedure TATY HAGEN Facility:[facility] Procedures Date Procedure Procedure Detail Performing Clinician Start: 09-29-2024 Rem interrog pm/ldls pm/ids <90 d tech review Taty Hagen MD Work Phone: Start: 06-29-2024 Ecg routine ecg w/le ast 12 lds w/i&r Taty Hagen MD Work Phone: Start: 06-29-2024 Program eval implant able in persn dual ld pacer Komal Ventura WALLPAPER SCRAPER-WESTERN PHILOSOPHY PROFESSOR Work Phone: Start: 04-09-2024 Ankle brachial press ure index MD Apurva Tatum Work Phone: Start: 04-09-2024 Duplex scan of lower limb veins MD Apurva Tatum Work Phone: Start: 03-31-2024 Radex spine cervical 4 or 5 views Guillermina Troncoso PA-C Work Phone: Start: 2024 Radex spine cervical 4 or 5 views Guillermina Troncoso PA-C Work Phone: Start: 02-05-2024 Glucose blood reagent strip Iesha Gold MD Work Phone: Start: 02-05-2024 Glucose blood reagent strip Iesha Gold MD Work Phone: Start: 02-05-2024 Glucose blood reagent strip Iesha Gold MD Work Phone: Start: 02-05-2024 Prothrombin time Cecili vanesa Olivoak PA-C Work Phone: Start: 02-04-2024 Glucose blood reagent strip Iesha Gold MD Work Phone: Start: 02-04-2024 Glucose blood reagent strip Iesha Gold MD Work Phone: Start: 02-04-2024 Glucose blood reagent strip Iesha Gold MD Work Phone: Start: 02-04-2024 Glucose blood reagent strip Iesha Gold MD Work Phone: Start: 02-04-2024 Prothrombin time Clementina Rodgers PA-C Work Phone: Start: 02-03-2024 Glucose blood reagent strip Iesha Gold MD Work Phone: Start: 02-03-2024 Glucose blood reagent strip Iesha Gold MD Work Phone: Start: 02-03-2024 End: 02-03-2024 Glucose blood reagent strip Iesha hillman MD Work Phone: Start: 02-02-2024 End: 02-03-2024 Blood count complete automated Ted Torres WALLPAPER SCRAPER-WESTERN PHILOSOPHY PROFESSOR Work Phone: Start: 02-02-2024 Ecg routine ecg w/le ast 12 lds trcg only w/o i&r To Be Assigned Start: 02-01-2024 Glucose blood reagent strip Michela Dias MD Work Phone: Start: 02-01-2024 Glucose blood reagent strip Michela Dias MD Work Phone: Start: 02-01-2024 Glucose blood reagent strip Michela Dias MD Work Phone: Start: 02-01-2024 Glucose blood reagent strip Michela Dias MD Work Phone: Start: 02-01-2024 Thromboplastin time partial plasma/whole blood Nic Kennedy MD Work Phone: Start: 01-31-2024 Glucose blood reagent strip Michela Dias MD Work Phone: Start: 01-31-2024 Glucose blood reagent strip Michela Dias MD Work Phone: Start: 01-31-2024 Glucose blood reagent strip Michela Dias MD Work Phone: Start: 01-31-2024 Glucose blood reagent strip Tyree Muñoz MD Work Phone: Start: 01-31-2024 Thromboplastin time partial plasma/whole blood Nic Kennedy MD Work Phone: Start: 01-30-2024 Glucose blood reagent strip Tyree Muñoz MD Work Phone: Start: 01-30-2024 Glucose blood reagent strip Tyree Muñoz MD Work Phone: Start: 01-30-2024 End: 01-30-2024 Glucose blood reagent strip Tyree Muñoz MD Work Phone: Start: 01-30-2024 Cyanocobalamin vitamin b-12 Elder Rodgers PA-C Work Phone: Start: 01-29-2024 Ecg routine ecg w/le ast 12 lds trcg only w/o i&r Elder Rodgers PA-C Work Phone: Start: 01-29-2024 Insertion picc w/rs& i 5 yr/> Elder Rodgers PA-C Work Phone: Start: 01-29-2024 Radex spine cervical 6 or more views Jordeneet Houston DO Work Phone: Start: 01-29-2024 Antibody treponema pallidum Elder Rodgers PA-C Work Phone: Start: 01-29-2024 End: 01-29-2024 Cyanocobalamin vitamin b-12 Christin Alia Bruce daniel WALLPAPER SCRAPER-WESTERN PHILOSOPHY PROFESSOR Work Phone: Start: 01-29-2024 Glucose blood reagent strip Tyree Muñoz MD Work Phone: Start: 01-29-2024 Thromboplastin time partial plasma/whole blood Nic Kennedy MD Work Phone: Start: 01-28-2024 Glucose blood reagent strip Tyree Muñoz MD Work Phone: Start: 01-28-2024 Glucose blood reagent strip Tyree Muñoz MD Work Phone: Start: 01-28-2024 Glucose blood reagent strip Tyree Muñoz MD Work Phone: Start: 01-28-2024 Glucose blood reagent strip Linda Shook MD Work Phone: Start: 01-28-2024 Radiology Comparison study - date and time Nic Kennedy MD Work Phone: Start: 01-28-2024 Ct angiography neck w/contrast/noncontrast Linda Shook MD Work Phone: Start: 01-28-2024 Drug screen quantita tive alcohols Linda Shook MD Work Phone: Start: 01-28-2024 Blood typing, ABO, R ho(D) and RBC antibody screening Linda Shook MD Work Phone: Start: 01-28-2024 End: 01-28-2024 Assay of lactate Linda Shook MD Work Phone: Start: 12-30-2023 Program eval implant able in persn dual ld pacer Taty Hagen MD Work Phone: Start: 11-04-2023 Lipid 1996 panel - S jaylon or Plasma Danica 1 Start: 10-02-2023 Rem interrog pm/ldls pm/ids <90 d tech review Taty Hagen MD Work Phone: Start: 06-27-2023 Ecg routine ecg w/le ast 12 lds w/i&r Taty Hagen MD Work Phone: Start: 06-27-2023 Program eval implant able in persn dual ld pacer Taty Hagen MD Work Phone: Start: 10-11-2022 Gluc bld gluc mntr d ev cleared fda spec home use Mario Hensley DPM Work Phone: Start: 10-07-2022 Basic metabolic pane l calcium total Mario Hensley DPM Work Phone: Start: 09-18-2022 Lower limb angiography MD Apurva Tatum Start: 09-12-2022 Duplex scan of lower limb arteries MD Apurva Tatum Start: 08-28-2022 Lower limb angiography MD Apurva Tatum Start: 05-30-2021 Injection of nerve r oot of lumbar spine using fluoroscopic guidance Apurva Tatum Comment on above: Right L5/S1 TESI-75% relief Start: 02-08-2020 Decompression of med krystyna nerve Apurva Tatum Start: 02-12-2017 Pacemaker placement Jorden Tatum Start: 02-11-2015 rerouted veins Apurva Ru ggles Appendectomy Apurva Munozes Work Phone: bladder suspension Apurva Diez gles Carple Tunnel Apurva Munozes Cataract extraction and insertion of intraocular lens Apurva Tatum Cholecystectomy Apurvakandy Diezg les Work Phone: Cholecystectomy Apurva Diezgle s Hysterectomy Apurvakandy Diezgles Work Phone: Hysterectomy Apurva Tatum Implantation of card iac pacemaker Apurva Tatum Work Phone: Leg repair Apurva Tatum Work Phone: Surgical procedure Apurva Yepez Trinidad aguirredru Work Phone: Comment on above: Trimming toenails; Total colonoscopy Apurva Yepez Ayan saenzana Work Phone: Plan of Treatment Date Care Activity Detail Author Start: 06-28-2025 End: 06-28-2025 Patient encounter procedure [facility] Start: 03-14-2025 Influenza vaccination Influenz a Vaccine (Season Ended) [facility] Start: 02-03-2025 [facility] Start: 02-03-2025 Potassium measurement Potassium Leve l [facility] Start: 11-05-2024 Urine screening for protein [facility] Start: 11-04-2024 Lipid panel Lipid Profile [facility] Start: 11-03-2024 Lipid panel Lipid Panel [facility] Start: 06-29-2024 End: 12-28-2025 Cardiac device check - In Clinic [facility] Work Phone: Comment on above: Expected: 06/29/2024 (Approximate), Expires: 12/28/2025 Start: 06-29-2024 End: 06-29-2025 Cardiac device check - Remote Cardiac device check - Remote Implantable Cardiac Device Routine Pacemaker Sinus node dysfunction (Multi) Expected: 06/29/2024 (Approximate), Expires: 06/29/2025 [facility] Service Area Work Phone: Comment on above: Expected: 06/29/2024 (Approximate), Expires: 06/29/2025 Start: 06-29-2024 End: 06-29-2024 Patient encounter procedure [facility] Start: 05-05-2024 Hemoglobin A1c measurement Hemoglobin A1C [facility] Start: 04-13-2024 Influenza vaccination Influenza Vacc ine (#1) [facility] Start: 03-31-2024 End: 03-31-2024 Patient encounter procedure 03/31/2024 2:45 PM EDT Office Visit [facility] [address] [place] [address] Negirto Maya MD [address] [place] [id number] [facility] Start: 03-31-2024 End: 03-31-2024 Patient encounter procedure 03/31/2024 1:15 PM EDT Office Visit [facility] [address] [place] [id number] Negrito Maya MD [address] [place] [id number] [facility] Start: 03-14-2024 COVID-19 Vaccine ( season) COVID-19 Vaccine ( season) [facility] Start: 03-14-2024 COVID-19 Vaccine ( season) COVID-19 Vaccine () [facility] Start: 03-14-2024 Influenza vaccination Influenza Vacc ine (#1) [facility] Start: 12-30-2023 End: 12-30-2023 Patient encounter procedure 12/30/2023 3:00 PM EDT Office Visit [facility] [address] [facility] [address] [place] [address] Komal Ventura E, WALLPAPER SCRAPER-WESTERN PHILOSOPHY PROFESSOR [address] [facility] [address], [address] [place], [place] [id number] [facility] Start: 12-27-2023 End: 06-27-2024 Cardiac Device Check - In Clinic Cardiac Device Check - In Clinic Implantable Cardiac Device Routine Pacemaker Expected: 12/27/2023 (Approximate), Expires: 06/27/2024 [facility] Service Area Work Phone: Comment on above: Expected: 12/27/2023 (Approximate), Expires: 06/27/2024 Start: 12-13-2023 Annual Wellness Visi t (G0439) Annual Wellness Visit (G0439) [facility] Start: 06-27-2023 FUV, Provider: Taty Hagen, Status: Pen, Time: 3:20 PM FUV, Provider: Taty Hagen, Status: Pen, Time: 3:20 PM [facility] [address] DO Work Phone: Start: 06-27-2023 Patient encounter procedure [id number], Provider: [facility], Status: Pen, Time: 2:20 PM [facility] [address] DO Work Phone: Start: 06-27-2023 End: 06-27-2024 ECG 12 Lead ECG 12 Lead ECG Routine Permanent atrial fibrillation (CMS/HCC) Expected: 06/27/2023 (Approximate), Expires: 06/27/2024 [facility] Work Phone: Comment on above: Expected: 06/27/2023 (Approximate), Expires: 06/27/2024 Start: 03-14-2023 COVID-19 Vaccine () COVID-19 Vaccine () [facility] Start: 01-06-2023 Ankle brachial press ure index [facility] Start: 12-24-2022 FUV, Provider: Komal Ventura, Status: Pen, Time: 3:00 PM FUV, Provider: Komal Ventura, Status: Pen, Time: 3:00 PM [facility] 320 DO Work Phone: Start: 12-24-2022 Patient encounter procedure FUVPACEMKR, Provider: [facility], Status: Pen, Time: 2:00 PM [facility] 320 DO Work Phone: Start: 10-11-2022 End: 10-11-2022 Admission to same day surgery center 10/11/2022 Surgery IP Unit Mario Hensley, DPLucho [address] [facility], [place] [address] LEFT HEEL WOUND DEBRIDEMENT AND EPIFIX APPLICATION [facility] Comment on above: LEFT HEEL WOUND DEBR IDEMENT AND EPIFIX APPLICATION Start: 10-11-2022 End: 10-11-2022 Debridement subcutaneous tissue 20 sq cm/< [facility] Start: 10-11-2022 Subsequent hospital visit by physician 10/11/2022 Hospital Encounter IP Unit BillfanyMario, DPM [address], [place] [address] [facility] Start: 10-08-2022 Annual Wellness Visi t (AWV) Annual Wellness Visit (AWV) [facility] Start: 09-18-2022 [facility] Start: 08-28-2022 [facility] Start: 05-28-2022 FUV, Provider: Taty Hagen, Status: Pen, Time: 3:00 PM FUV, Provider: Taty Hagen, Status: Pen, Time: 3:00 PM [facility] Work Phone: Start: 05-28-2022 Patient encounter procedure [id number], Provider: [facility], Status: Pen, Time: 2:00 PM [facility] 320 DO Work Phone: Start: 04-12-2022 Pneumococcal 65+ yea rs Vaccine (2 - PPSV23 if available, else PCV20) Pneumococcal 65+ years Vaccine (2 - PPSV23 if available, else PCV20) [facility] Start: 04-12-2022 Pneumococcal vaccination Pneum ococcal Vaccine(s) (65+ yrs) (2 of 2 - PPSV23 or PCV20) [facility] Start: 02-11-2022 Influenza vaccination Flu vaccine (# 1) [facility] Start: 11-27-2021 FUV, Provider: Komal Ventura, Status: Pen, Time: 3:00 PM FUV, Provider: Komal Ventura, Status: Pen, Time: 3:00 PM [facility] DO Work Phone: Start: 11-27-2021 Patient encounter procedure [id number], Provider: [facility], Status: Pen, Time: 2:00 PM -[facility] 320 DO Work Phone: Start: 06-07-2021 Pneumococcal vaccination Pneum ococcal Vaccine(s) (65+ yrs) (2 of 2 - PPSV23 or PCV20) [facility] Start: 05-29-2021 FUV, Provider: Taty Hagen, Status: Pen, Time: 3:20 PM FUV, Provider: Taty Hagen, Status: Pen, Time: 3:20 PM [facility] 320 DO Work Phone: Start: 05-29-2021 Patient encounter procedure [id number], Provider: [facility], Status: Pen, Time: 2:20 PM -[facility] 320 DO Work Phone: Start: 05-09-2021 COVID-19 Vaccine (3 - Booster for Pfizer series) COVID-19 Vaccine (3 - Booster for Pfizer series) [facility] Start: 05-09-2021 COVID-19 Vaccine (3 - Pfizer series) COVID-19 Vaccine (3 - Pfizer series) [facility] Start: 08-02-2020 Echocardiography Echocardiogram [facility] Start: 2014 RSV High Risk: (Elde rly (60+) or Population) (1 - 1-dose 75+ series) RSV High Risk: (Elderly (60+) or Population) (1 - 1-dose 75+ series) [facility] Start: 2014 RSV Vaccine (75+ years) RSV Vaccine (75+ years) [facility] Start: 02-19-2004 Pneumococcal vaccination Pneum ococcal Vaccine(s) (65+ yrs) (1 of 1 - PCV) [facility] Start: 02-19-2004 Screening for osteoporosis Bone Densitometry [facility] Start: 1999 Hepatitis B (HBV) Va ccine (optional start 60+ years) Hepatitis B (HBV) Vaccine (optional start 60+ years) [facility] Start: 1999 RSV patient s and/or patients aged 60+ years (1 - 1-dose 60+ series) RSV patients and/or patients aged 60+ years (1 - 1-dose 60+ series) [facility] Start: 1999 RSV vaccine (optiona l 60+ years) RSV vaccine (optional 60+ years) [facility] Start: 1994 Screening for osteoporosis DEXA (modify frequency per FRAX score) [facility] Start: 1989 Shingles (RZV) Vacci ne (1 of 2) Shingles (RZV) Vaccine (1 of 2) [facility] Start: 1989 Shingles vaccine (1 of 2) Priest gles vaccine (1 of 2) [facility] Start: 1989 Zoster Vaccines (1 of 2) Zoste r Vaccines (1 of 2) [facility] Start: 1961 DTaP/Tdap/Td Vaccine s (1 - Tdap) DTaP/Tdap/Td Vaccines (1 - Tdap) [facility] Start: 1958 DTaP/Tdap/Td vaccine (1 - Tdap) DTaP/Tdap/Td vaccine (1 - Tdap) [facility] Start: 1958 Hepatitis A (HAV) Va ccine (optional start 19+ years) Hepatitis A (HAV) Vaccine (optional start 19+ years) [facility] Start: 1957 Tetanus + diphtheria + acellular pertussis vaccine (product) Tdap Booster [facility] Start: 1951 Depression Screen Depression Screen [facility] Start: 1949 Diabetic foot examination Diabetes: Foot Exam [facility] Start: 1949 Glaucoma screening Diabetes: R etinopathy Screening [facility] Start: 1949 Lipid panel Lipids [facility] Start: 1939 Glaucoma screening Eye Exam [facility] Start: 1939 Diabetic foot examination Foot Exam [facility] Start: 1939 Hemoglobin A1c measurement Diabetes: Hemoglobin A1C [facility] Start: 1939 Lipid panel Lipid Panel [facility] Start: 1939 Medicare Annual Well ness Visit Medicare Annual Wellness Visit (AWV) [facility] Start: 1939 Screening for osteoporosis Bone Density Scan [facility] Ankle brachial press ure index [facility] Cardiac Device Check - In Clinic Cardiac Device Check - In Clinic Implantable Cardiac Device Routine Pacemaker 12/30/2023 2:24 PM EDT [facility] Service Area Work Phone: End: 12-27-2023 Cardiac Device Check - Remote Cardiac Device Check - Remote Implantable Cardiac Device Routine Pacemaker 52 Occurrences starting 06/27/2023 until 12/27/2023 [facility] Work Phone: Comment on above: 52 Occurrences start ing 06/27/2023 until 12/27/2023 End: 04-06-2024 Cardiac Device Check - Remote [facility] Work Phone: Comment on above: Once for 1 Occurrenc es starting 04/06/2024 until 04/06/2024 End: 01-04-2025 Cardiac Device Check - Remote [facility] Work Phone: Comment on above: Once for 1 Occurrenc es starting 01/04/2025 until 01/04/2025 Culture, Anaerobic a nd Aerobic [facility] Work Phone: Comment on above: Release Upon Orderin g for 1 Occurrences starting 10/11/2022 End: 01-29-2024 Ecg routine ecg w/least 12 lds trcg only w/o i&r [employer] Work Phone: Comment on above: Once for 1 Occurrenc es starting 01/29/2024 until 01/29/2024 One time, now for 1 Occurrences starting 01/29/2024 until 01/29/2024 Patient Education [facility] Work Phone: Patient referral [facility] Work Phone: Prothrombin time PROTHROMBIN CARLITA E AND INR Lab Routine Daily until discontinued starting 02/04/2024, 2 completed [facility] Comment on above: Daily until disconti nued starting 02/04/2024, 2 completed US Lower extremity v ein - bilateral [facility] Immunizations Immunization Date Immunization Notes Care Provider Tre pinto 11-04-2023 Hemoglobin A1C [address] [facility] 05-14-2023 Influenza, injectable, high-dose seasonal, quadrivalent, 0.7 mL, preservative free (PEA=487) 3 [facility] 05-14-2023 influenza virus vaccine, unspecified formulation 3 [facility] 05-14-2022 influenza virus vaccine, unspecified formulation Ty SALAM [facility] 04-12-2021 Fluzone High-Dose Quadrivalent 0.7 ML Intramuscular Suspension Prefilled Syringe Apurva Diezgles Work [facility]: [facility] Work Phone: 04-12-2021 influenza virus vaccine, unspecified formulation Ty SALAM [facility] 04-12-2021 pneumococcal conjugate vaccine, 13 valent Apurva Diezgles Work Phone: [facility] 03-14-2021 Pfizer-BioNTech COVID-19 Vacc 30 MCG/0.3ML Intramuscular Suspension Apurva Yepez Deepti Work Phone: [facility] 02-21-2021 Pfizer-BioNTech COVID-19 Vacc 30 MCG/0.3ML Intramuscular Suspension Apurva Yepez Deepti Work Phone: [facility] 04-28-2020 influenza virus vaccine, unspecified formulation Ty SALAM [facility] 04-28-2020 influenza, seasonal, injectable Apurva Yepez Deepti Work Phone: [facility] DO Work Phone: 04-13-2019 influenza virus vaccine, unspecified formulation Apurva Lucho Deepti Work Phone: [facility] 04-13-2019 influenza, high dose seasonal, preservative-free Apurva M Deepti Work Phone: [facility] Work Phone: 04-25-2018 influenza virus vaccine, unspecified formulation Apurva M Deepti Work Phone: [facility] DO Work Phone: 04-08-2018 influenza virus vaccine, unspecified formulation Ty SALAM [facility] 04-08-2018 Seasonal trivalent influenza vaccine, adjuvanted, preservative free Apurva M Deepti Work Phone: [facility] 320 DO Work Phone: 05-02-2017 influenza virus vaccine, unspecified formulation Ty SALAM [facility] 05-02-2017 influenza, high dose seasonal, preservative-free Apurva M Deepti Work Phone: [facility] 320 DO Work Phone: 04-13-2017 influenza virus vaccine, unspecified formulation Apurva M Deepti Work Phone: [facility] DO Work Phone: 05-01-2016 influenza virus vaccine, unspecified formulation Ty SALAM [facility] 05-01-2016 influenza, high dose seasonal, preservative-free Apurva M Deepti Work Phone: [facility] 320 DO Work Phone: 03-14-2016 influenza virus vaccine, unspecified formulation Apurva M Deepti Work Phone: [facility] DO Work Phone: 04-13-2015 influenza virus vaccine, unspecified formulation Apurva M Deepti Work Phone: [facility] 320 DO Work Phone: 03-28-2015 influenza virus vaccine, unspecified formulation Ty SALAM [facility] 03-28-2015 influenza, high dose seasonal, preservative-free Apurva M Deepti Work Phone: [facility] 320 DO Work Phone: 03-14-2014 influenza virus vaccine, unspecified formulation Apurva M Deepti Work Phone: [facility] 320 DO Work Phone: 03-13-2014 influenza virus vaccine, unspecified formulation Ty SALAM [facility] 03-13-2014 influenza, high dose seasonal, preservative-free Apurva M Deepti Work Phone: [facility] DO Work Phone: 04-13-2013 influenza virus vaccine, unspecified formulation Ty SALAM [facility] 04-13-2013 influenza, seasonal, injectable Apurva M Deepti Work Phone: [facility] DO Work Phone: 04-13-2011 pneumococcal polysaccharide vaccine, 23 valent Apurva M Deepti Work Phone: [facility] 320 DO Work Phone: influenza virus vaccine, unspecified formulation Apurva M Deepti Work Phone: [facility] DO Work Phone: Comment on above: May [id number] NEGATED: Highlighted row has not occurred! 6 influenza, seasonal, injectable Patient Objection Josh Mauro Other [employer] Other Payers Date Payer Category Payer Self-pay [id number] 2020 Medicare DEVOTED HEALTH M [place] DEVOTED HEALTH MEDICARE [id number] 2020-Present [address] [place] [address] Medicare [id number] 2020 Medicare (Managed Care) 1.2. [id number] 2020 Unknown 2020 Unknown [id number] 1959 Medicare [id number] 1959 Unknown [id number] 1939 Unknown [id number] 2.840.1.529387.3.579.2. 355 1939 Unknown [id number] 2..840.1.897875.3.579.2. 355 1939 Unknown [id number] 2..840.1.509704.3.579.2. 355 1939 Unknown [id number] 2.840.1.801103.3.579.2. 355 1939 Unknown [id number] 2.840.1.101243.3.579.2. 355 1939 Unknown [id number] 2.16.840.1.443303.3.579.2. 355 1939 Unknown [id number] 2.16.840.1.285377.3.579.2. 355 1939 Unknown [id number] 2.840.1.647597.3.579.2. 355 1939 Unknown [id number] 2..840.1.430429.3.579.2. 593 1939 Unknown [id number] 2.16.840.1.057498.3.579.2. 356 1939 Unknown [id number] 2.16840.1.449133.3.579.2. 356 1939 Unknown [id number] 2.16.840.1.871459.3.579.2. 174 1939 Unknown [id number] 2.16840.1.378931.3.579.2. 174 1939 Unknown [id number] 2.16840.1.293596.3.579.2. 174 1939 Unknown [id number] 2.840.1.253350.3.579.2. 1067 1939 Unknown [id number] 2.840.1.576160.3.579.2. 1067 1939 Unknown [id number] 2.840.1.405854.3.579.2. 1067 1939 Unknown [id number] 2.840.1.905257.3.579.2. 1067 1939 Unknown [id number] 2.840.1.561611.3.579.2. 1067 1939 Unknown [id number] 2.840.1.567206.3.579.2. 106 1939 Unknown [id number] 2.840.1.539311.3.579.2. 1258 1939 Unknown [id number] 2.840.1.406327.3.579.2. 125 1939 Unknown [id number] 2.840.1.701913.3.579.2. 1258 1939 Unknown [id number] 2.16840.1.786280.3.579.2. 125 1939 Unknown [id number] 2.16840.1.719936.3.579.2. 727 1939 Unknown [id number] 2.16.840.1.430862.3.579.2. 72 1939 Unknown [id number] 2.16.840.1.978520.3.579.2. 72 1939 Unknown [id number] 2.16.840.1.145353.3.579.2. 72 1939 Unknown [id number] 2.16.840.1.456971.3.579.2. 1939 Unknown [id number] 2.840.1.776117.3.579.2. 1939 Unknown [id number] 2.840.1.418076.3.579.2. 1939 Unknown [id number] 2.840.1.174411.3.579.2. 1939 Unknown [id number] 2.840.1.397198.3.579.2. 1939 Unknown [id number] 2.840.1.272068.3.579.2. 1939 Unknown [id number] 2.840.1.757233.3.579.2. 1939 Unknown [id number] 2.840.1.900083.3.579.2. 1939 Unknown [id number] 2.840.1.976143.3.579.2. 72 1939 Unknown [id number] 2.16840.1.090855.3.579.2. 1939 Unknown [id number] 2.840.1.973338.3.579.2. 72 1939 Unknown [id number] 2.840.1.093781.3.579.2. 1939 Unknown [id number] 2.16.840.1.689883.3.579.2. 732 1939 Unknown [id number] 2.840.1.045371.3.579.2. 732 1939 Unknown [id number] 2.840.1.239297.3.579.2. 732 1939 Unknown [id number] 2.840.1.247592.3.579.2. 732 1939 Unknown [id number] 2.840.1.418883.3.579.2. 732 1939 Unknown [id number] 2.0.1.370246.3.579.2. 732 1939 Unknown [id number] 2.840.1.706187.3.579.2. 732 1939 Unknown [id number] 2.840.1.829585.3.579.2. 732 1939 Unknown [id number] 2.0.1.245154.3.579.2. 732 1939 Unknown [id number] 2.0.1.166587.3.579.2. 1244 1939 Unknown [id number] 2840.1.785388.3.579.2. 1243 1939 Unknown [id number] 2.840.1.253843.3.579.2. 1246 1939 Unknown [id number] 2.840.1.738004.3.579.2. 1245 1939 Unknown [id number] 2.840.1.593160.3.579.2. 1245 1939 Unknown [id number] 2.840.1.297546.3.579.2. 1246 Medicare [id number] Unknown [id number] 2.840.1.028331.3.579.2. 531 Unknown [id number] 2.16.840.1.814855.3.579.2. 531 Social History Date Type Detail Facility Start: 06-27-2023 End: 06-29-2024 Daily caffeine consumption, 2-3 servings a day Daily caffeine consumption, 2-3 servings a day [facility] Comment on above: 1-2x a year; Start: 12-07-2020 End: 06-27-2023 Tobacco smoking status Never smoked tobacco (finding) [facility] Tobacco smoking status Never [facility] Start: 06-27-2023 End: 06-29-2024 Sex Assigned At Female [facility] Start: 1940 Sex Assigned At Female [facility] Start: 10-07-2022 End: 06-27-2023 Tobacco use and exposure Smokeless tobacco non-user [employer] Work Phone: Start: 10-07-2022 End: 06-29-2024 Alcohol intake Current drinker of alcohol (finding) [employer] Phone: Start: 10-07-2022 Alcohol Comment occassional [employer] Work Phone: Start: 1940 Sex Assigned At Not on file B ON [employer] Phone: Start: 10-01-2022 End: 06-29-2024 Exposure to SARS-CoV-2 (event) Not sure [employer] Work Phone: Start: 06-27-2023 Alcohol Comment [facility] Work Phone: Tobacco smoking status VAIS Tobacco smoking consumption unknown [facility] (I/We) worried whether (my/our) food would run out before (I/we) got money to buy more. Never true [facility] In the past 12 months, was there a time when you were not able to pay the mortgage or rent on time? No [facility] Medical Equipment Procedure Code Equipment Code Equipment Origin al Text Equipment Identifier Dates Angiogram, lower extremity, left Peripheral artery stent, bare-metal ([id number] FDA Start: 09-18-2022 GRAFT PATCH HEMASHIELD 1 X 6 FDA Start: 05-30-2017 GRAFT PATCH HEMASHIELD 1 X 6 FDA Start: 05-30-2017 GRAFT PATCH HEMASHIELD 1 X 6 FDA Start: 05-30-2017 Epifix 2x2cm 4sq [facility] [id number] Start: 10-11-2022 GRAFT PATCH HEMASHIELD 1 X 6 FDA Start: 05-30-2017 GRAFT PATCH HEMASHIELD 1 X 6 FDA Start: 05-30-2017 GRAFT PATCH HEMASHIELD 1 X 6 FDA Start: 05-30-2017 GRAFT PATCH HEMASHIELD 1 X 6 FDA Start: 05-30-2017 GRAFT PATCH HEMASHIELD 1 X 6 FDA Start: 05-30-2017 Functional Status Date Assessment Result Facility 01-27-2024 Functional Status N/A [facility] 03-26-2023 Functional Status N/A [facility] 09-26-2022 Functional Status N/A [facility] 08-30-2022 Functional Status N/A [facility] 07-21-2022 Functional Status N/A [facility] 07-20-2022 Functional Status [facility] 06-24-2022 Functional Status N/A [facility] 01-30-2022 Functional Status N/A [facility] Clinical Notes 01-30-2022 to 06-29-2024 Taty Hagen MD - 06/29/2024 2:40 PM ESTPatient Negrito Bansal MD - 03/31/2024 1:15 PM Negrito Powell MD - 02/22/2024 5:17 PM Shahid Delarosa - 2024 3:01 PM EDT Note Date & Type Note Facility 06-29-2024 History of Present illness Narrative Chief Complaint: Follow-up ( month with device check ) History Of Present Illness: Bernardino Guzman is a 84 y.o. female presenting with follow-up. She is accompanied by her daughter. Patient denies any arrhythmia symptoms of palpitation, lightheadedness, near syncope, or syncope. Her daughter and I reviewed medication list in detail. The patient had a fall without syncope. This required hospitalization at [facility] trauma center then rehab. She now resides at the [facility] in [place]. last Recorded Vitals: Vitals: 06/29/24 1429 BP: 110/80 BP Location: Right arm Patient Position: Sitting Pulse: 83 Past Medical History: See list Past Surgical History: See list Social History: She reports that she has never smoked. She has never used smokeless tobacco. She reports current alcohol use. She reports that she does not use drugs. Family History: Family History Problem Relation Name Age of Onset Diabetes type II Mother Allergies: Patient has no known allergies. Outpatient Medications: Current Outpatient Medications Medication Instructions cholecalciferol (VITAMIN D3) 25 mcg, Daily dilTIAZem CD (CARDIZEM CD) 180 mg, oral, Daily FreeStyle Ryan 2 Sensor kit Use sensor as directed every 2 weeks furosemide (LASIX) 20 mg, oral, Every other day, as directed guaiFENesin (ROBITUSSIN) 200 mg, 3 times daily PRN hydrOXYzine HCL (ATARAX) 10 mg, 3 times daily insulin lispro 100 unit/mL injection 4 times daily loperamide (IMODIUM) 2 mg, 2 times daily sennosides (Senokot) 8.6 mg tablet 1 tablet, Daily simvastatin (ZOCOR) 40 mg, Nightly traZODone (DESYREL) 50 mg, Nightly warfarin (Coumadin) 2 mg tablet TAKE 1 TO 2 TABLETS BY MOUTH DAILY or as directed per NO Physical Exam: General Sleepy HEENT EOMI Decreased hearing Cardiovascular Inspection: JVD: none Precordial bulge: none Palpation: Quality: excellent Precordium: normal impulses Auscultation: Irregular rhythm Quality of auscultation: excellent S1: normal intensity S2: normal intensity Clicks: none Gallops: none Rub: none Systolic murmurs: none Diastolic murmurs: none Pulses: 2+= radial, brachial, carotid Lungs Clear, decreased breath sounds Abdomen Bowel sounds positive Extremities Trace pedal edema Review of Systems Constitutional: Negative for chills, fever and malaise/fatigue. Cardiovascular: Negative for chest pain, irregular heartbeat, near-syncope and palpitations. Respiratory: Negative for shortness of breath. Last Labs: CBC - No results found for: WBC , HGB , HCT , MCV , PLT CMP - No results found for: CALCIUM , PHOS , PROT , ALBUMIN , AST , ALT , ALKPHOS , BILITOT LIPID PANEL - No results found for: CHOL , TRIG , HDL , CHHDL , LDLF , VLDL , NHDL RENAL FUNCTION PANEL - No results found for: GLUCOSE , NA , K , CL , CO2 , ANIONGAP , BUN , CREATININE , GFRMALE , CALCIUM , PHOS , ALBUMIN No results found for: BNP , HGBA1C Last Cardiology Tests: ECG: ECG 12 lead (Clinic Performed) 12/30/2023 Today. Atrial fibrillation. Right axis deviation Block. Previous inferior and anterior infarct. Corrected QT interval 480 ms Device check today. Medtronic W1 DR Ager pacemaker. Estimate longevity device over 8 years. 0.1% atrial pacing (likely under sensing). 40% ventricular pacing. All rhythms atrial fibrillation. 1, ventricular rate Lab review: I have personally reviewed the laboratory result(s) see above Assessment/Plan Problem List Items Addressed This Visit ICD-10-CM Complete heart block I44.2 Mixed hyperlipidemia E78.2 Pacemaker - Primary Z95.0 Permanent atrial fibrillation (Multi) I48.21 Sinus node dysfunction (Multi) I49.5 SOB (shortness of breath) on exertion R06.02 Pure hypercholesterolemia E78.00 HTN (hypertension) I10 Taty Hagen MD Chronotropic incompetence, sinus node dysfunction, junctional rhythm, and intermittent complete heart block heart block, near syncope status post pacemaker in 2018 and 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 Stable Medtronic W1 DR pacemaker. Chronic. Stable. Reviewed device check. Normal device function. Per patient complains that she now resides at facility in [place], will plan for remote monitors at 3 months, 6 months, 9 months for an annual device clinic paired with EP office visit. Permanent atrial fibrillation with rapid ventricular rate. Reviewed medications. Continue medications. Discussed refills. High-risk medication from warfarin. Continue warfarin long-term. Refill discussed. Nonsustained ventricular tachycardia. Normal LV function by echocardiogram 2017. Treatment options discussed in detail. Patient and family opted for conservative therapy in past and no other evaluation. Hypertension. Stable. Chronic. Reviewed medications. Refills discussed. Abnormal stress test thought to be false positive from pacer artifact and prior heart catheterization with no significant disease. Chronic. Stable. No further evaluation per patient's request. Hyperlipidemia. Chronic. Stable. Reviewed medication. Takes statin. Patient declined blood work in past. Valvular heart disease with moderate mitral stenosis with mean pressure gradient 5 mmHg by echocardiogram 2017. Chronic. Stable. Follows with cardiology. Chronic kidney disease chronic. Stable. Dementia. No longer on medication per family report. Overweight AHA recommendations for exercise, diet, and behavioral modification reviewed with pt. Counseling over 50% visit performed. The patient, daughter, and I discussed the mechanism of arrhythmia, pacemaker, device check, device function, remote monitor, heart rate, ECG, atrial fibrillation, indications for and types of medications, discussion if and what medication refills needed, treatment options, risks, benefits, and imponderables. [place] [employer] lifestyle changes and behavioral modification discussed. All questions answered in detail. Patient and family appreciative of care. documented in this encounter [facility] Work Phone: 06-29-2024 Instructions Leonie Acosta LPN - 06/29/2024 2:40 PM EST Follow up with Dr. Hagen in 1 year Remote device checks at 3,6, and 9 months In clinic device check in 1 year, same day as appointment We only received a partial fax from [facility] in [place]. We need them to fax a complete list of your CURRENT medicines to [phone]. documented in this encounter [facility] Work Phone: 03-31-2024 History of Present illness Narrative HISTORY OF PRESENT ILLNESS Hr Generalist: not needed - patient preferred language is Australian. HIPAA: Verbal permission granted from patient to discuss case, including protected health information, in front of family / friends in room at the time of the evaluation. Bernardino Guzman is a very pleasant 84 year old female here for follow-up on her cervical spine fracture. - REVIEW OF SYSTEMS ----- The following systems were reviewed and are negative except as noted: Constitutional, Eye, ENT, Cardiovascular, Respiratory, GI, , Musculoskeletal, Skin, Neurologic (No bowel/bladder incontinence, gait instability, or hand dexterity issues), Endocrine, Hematology/Lymphatic and Allergic/Immunologic ----- PAST HISTORY Past Medical History: No past medical history on file. Past Surgical History: There is no previous surgical history on file. Social History: Social History Socioeconomic History Marital status: Tobacco Use Smoking status: Never Smokeless tobacco: Never Social Determinants of Health Food Insecurity: No Food Insecurity (01/29/2024) Hunger Vital Sign Worried About Running Out of Food in the Last Year: Never true Ran Out of Food in the Last Year: Never true Transportation Needs: No Transportation Needs (01/29/2024) PRAPARE - Transportation Lack of Transportation (Medical): No Lack of Transportation (Non-Medical): No Family History: No family history on file. Medications: The patient's home medications have been reviewed. Allergies: Patient has no known allergies. ----- PHYSICAL EXAM -------- Constitutional: Awake & alert. No distress. Head: Atraumatic. Eyes: No scleral icterus. ENT: Normal external inspection. Airway patent. Neck: Supple. No cervical midline bony tenderness, deformities, or step-offs. Cardiovascular: Equal pulses. Well perfused. Pulmonary/Chest: No respiratory distress. Abdominal: Non-distended. Musculoskeletal: No peripheral edema. Back: No midline bony tenderness, deformities, or step-offs of the thoracic, lumbar, and sacral spine. Skin: Normal color. No abrasions or bruising. No erythema, induration or fluctuance. Neurological: Alert, awake, and appropriate. 5/5 strength bilateral upper and lower extremities. No myelopathic reflexes. No sensory deficits to light touch. DTR s 2+ and equal. Normal gait. +balance issues ------- IMAGING Imaging reviewed: XR C-SPINE AP/LAT/OBLS/ODO 5 VIEWS 03/31/2024 shows great healing and alignment - ASSESSMENT & PLAN --- Closed odontoid fracture initial encounter (HCC) Today the patient and I discussed the nature and progression of their condition. She looks great on upright films. We've removed the hard collar and replaced it with a soft collar. I am pleased this is healing nicely as is the patient as she really did not want a surgery'll see her again in 6 weeks with flextion extension views. Please call with any concerns. Return to clinic 6 weeks Patient to return sooner if worsening or if there are any changes. Orders: Orders & Meds Signed During This Encounter XR C-SPINE AP/LAT/OBLS/ODO 5 VIEWS --- SCRIBE ATTESTATION -- 03/31/2024, 9:30 AM. This note is prepared by Dayan Oswald acting as Scribe for Dr. Negrito Maya All medical record entries made by the Scribe were at my direction and personally dictated by me. I have reviewed the record and confirm that the note above accurately reflects all work, treatment, procedures, and medical decision making performed by me. Dr. Negrito Maya. documented in this encounter [facility] 02-22-2024 History of Present illness Narrative HISTORY OF PRESENT ILLNESS Hr Generalist: not needed - patient preferred language is Australian. HIPAA: Verbal permission granted from patient to discuss case, including protected health information, in front of family / friends in room at the time of the evaluation. Bernardino Guzman is a very pleasant 84 year old female here for follow-up for cervical fracture and odontoid fracture on 01/28/2024. She is s/p 6 weeks on a hard collar and is now wearing a soft collar which she will wear for another 6 weeks. According to the family, she does not want to get up and walk around. - REVIEW OF SYSTEMS ----- The following systems were reviewed and are negative except as noted: Constitutional, Eye, ENT, Cardiovascular, Respiratory, GI, , Musculoskeletal, Skin, Neurologic (No bowel/bladder incontinence, gait instability, or hand dexterity issues), Endocrine, Hematology/Lymphatic and Allergic/Immunologic ----- PAST HISTORY Past Medical History: No past medical history on file. Past Surgical History: There is no previous surgical history on file. Social History: Social History Socioeconomic History Marital status: Tobacco Use Smoking status: Never Smokeless tobacco: Never Social Determinants of Health Food Insecurity: No Food Insecurity (01/29/2024) Hunger Vital Sign Worried About Running Out of Food in the Last Year: Never true Ran Out of Food in the Last Year: Never true Transportation Needs: No Transportation Needs (01/29/2024) PRAPARE - Transportation Lack of Transportation (Medical): No Lack of Transportation (Non-Medical): No Family History: No family history on file. Medications: The patient's home medications have been reviewed. Allergies: Patient has no known allergies. ----- PHYSICAL EXAM -------- Constitutional: Awake & alert. No distress. Head: Atraumatic. Eyes: No scleral icterus. ENT: Normal external inspection. Airway patent. Neck: Supple. No cervical midline bony tenderness, deformities, or step-offs. Cardiovascular: Equal pulses. Well perfused. Pulmonary/Chest: No respiratory distress. Abdominal: Non-distended. Musculoskeletal: No peripheral edema. Back: No midline bony tenderness, deformities, or step-offs of the thoracic, lumbar, and sacral spine. Skin: Normal color. No abrasions or bruising. No erythema, induration or fluctuance. Neurological: Alert, awake, and appropriate. 5/5 strength bilateral upper and lower extremities. No myelopathic reflexes. No sensory deficits to light touch. DTR s 2+ and equal. Normal gait. +balance issues ------- IMAGING Imaging reviewed: XR c spine- stable alignment - ASSESSMENT & PLAN --- Closed odontoid fracture, initial encounter ([facility]) Today the patient and I discussed the nature and progression of their condition. Pt is s/p 6 weeks on hard collar. We are transitioning her to a soft collar which she will wear for another 6 weeks, afterwards we will treat with flexion/extension films as a caution. Per pt's family, she does not want to ambulate. I discussed with her the importance of physical therapy and aggressive balance training. Please call with any concerns. Return to clinic 6 weeks Patient to return sooner if worsening or if there are any changes. Orders: Orders & Meds Signed During This Encounter XR C-SPINE AP/LAT/OBLS/ODO 5 VIEWS --- SCRIBE ATTESTATION -- 02/22/2024, 5:17 PM. This note is prepared by Charlotte Olmedo acting as Scribe for Dr. Negrito Maya All medical record entries made by the Scribe were at my direction and personally dictated by me. I have reviewed the record and confirm that the note above accurately reflects all work, treatment, procedures, and medical decision making performed by me. Dr. Negrito Maya. Soft cervical collar dispensed by clinician. documented in this encounter [facility] 02-06-2024 Telephone encounter Note Sil ricci Dtr calls to state ozempic on med list pt [facility]pt is not on med list She wants to know how this can be correctedl Not sure if they can see epic Current Outpatient Medications Medication Sig Dispense Refill enoxaparin (LOVENOX) 60 MG/0.6ML injection Inject 0.5 mL under the skin 2 times daily. Continue until INR is therapeutic 10 Each 0 vitamin B-12 (CYANOCOBALAMIN) 500 MCG tablet Take 2 Tablets by mouth daily. 30 Tablet 3 senna (SENOKOT) 8.6 MG tablet Take 1 Tablet by mouth at bedtime. 30 Tablet 0 acetaminophen (TYLENOL) 500 MG tablet Take 2 Tablets by mouth every 8 hours. 30 Tablet 0 citalopram (CeleXA) 20 MG tablet Take 1 Tablet by mouth daily. Cholecalciferol (Vitamin D3) 25 MCG (1000 UT) CAPS Take 25 mcg by mouth daily. diltiazem (Dilt-XR) 120 MG XR capsule Take 120 mg by mouth at bedtime. donepezil (ARICEPT) 5 MG tablet Take 5 mg by mouth at bedtime. furosemide (LASIX) 20 MG tablet Take 20 mg by mouth every other day. lisinopril (ZESTRIL) 2.5 MG tablet Take 2.5 mg by mouth daily. simvastatin (ZOCOR) 40 MG tablet Take 40 mg by mouth daily. at bedtime warfarin (COUMADIN) 2 MG tablet Take 2 mg by mouth daily. No current facility-administered medications for this visit. Discontinue aricept as pt was bradycardic and losing wt Discontiue ozempic as pt lost too much wt on this Continue celexa 20mg/d Christin Camara, MSN, WALLPAPER SCRAPER, WESTERN PHILOSOPHY PROFESSOR Adult/Geriatric Nurse Practitioner [facility] [address] [phone] pager: [phone] Electronically signed by Christin Camara, WALLPAPER SCRAPER-WESTERN PHILOSOPHY PROFESSOR at 02/06/2024 12:32 PM EDT [facility] 02-06-2024 Miscellaneous Notes Sil ricci Dtr calls to state ozempic on med list pt [facility] ar[facility]pt is not on med list She wants to know how this can be correctedl Not sure if they can see epic Current Outpatient Medications Medication Sig Dispense Refill enoxaparin (LOVENOX) 60 MG/0.6ML injection Inject 0.5 mL under the skin 2 times daily. Continue until INR is therapeutic 10 Each 0 vitamin B-12 (CYANOCOBALAMIN) 500 MCG tablet Take 2 Tablets by mouth daily. 30 Tablet 3 senna (SENOKOT) 8.6 MG tablet Take 1 Tablet by mouth at bedtime. 30 Tablet 0 acetaminophen (TYLENOL) 500 MG tablet Take 2 Tablets by mouth every 8 hours. 30 Tablet 0 citalopram (CeleXA) 20 MG tablet Take 1 Tablet by mouth daily. Cholecalciferol (Vitamin D3) 25 MCG (1000 UT) CAPS Take 25 mcg by mouth daily. diltiazem (Dilt-XR) 120 MG XR capsule Take 120 mg by mouth at bedtime. donepezil (ARICEPT) 5 MG tablet Take 5 mg by mouth at bedtime. furosemide (LASIX) 20 MG tablet Take 20 mg by mouth every other day. lisinopril (ZESTRIL) 2.5 MG tablet Take 2.5 mg by mouth daily. simvastatin (ZOCOR) 40 MG tablet Take 40 mg by mouth daily. at bedtime warfarin (COUMADIN) 2 MG tablet Take 2 mg by mouth daily. No current facility-administered medications for this visit. Discontinue aricept as pt was bradycardic and losing wt Discontiue ozempic as pt lost too much wt on this Continue celexa 20mg/d Christin Camara, MSN, WALLPAPER SCRAPER, WESTERN PHILOSOPHY PROFESSOR Adult/Geriatric Nurse Practitioner [facility] [address] [address] [phone] pager: [phone] Electronically signed by Christin Camara, WALLPAPER SCRAPER-WESTERN PHILOSOPHY PROFESSOR at 02/06/2024 12:32 PM EDT documented in this encounter [facility] 02-05-2024 History of Present illness Narrative Patient discharged to [facility] at [place] via [facility] and [facility]ando. PICC removed. Follow up appointment scheduled and recommended. Patient took all belongings with her. Images from the original note were not included. GENERAL INFORMATION TRAUMA FLOOR - STAFF NOTE Patient Name: Bernardino Guzman Admission Date: 01/28/2024 Patient seen and examined on 02/05/24 INTERVAL HISTORY/EVENTS Background: Bernardino Guzman is a 83 year old female w/ pmh significant for A-fib on warfarin, mild dementia, CAD, CVA, HTN, and DM2 brought in by EMS from an outside hospital ([facility]) as a CAT 2 trauma following an unwitnessed fall w/ a daignosis of a Type 2 Dens Fracture. Per EMS, patient was found on floor after being down several hours. ? Head strike, ? LOC (patient amnestic to the event) + AC/AP (ASA & Plavix) Pt reports having a pacemaker in place but otherwise has no other medical concerns at this time. At baseline, pt uses a walker for ambulation. Per patient's paperwork, during her ED course at [facility], pt did have an episode of emesis for which she got a dose of zofran. INR was therapeutic at 2.85. UA was significant for a UTI and patient was given a dose of IV recephin. CTA Neck was not done prior to transfer. Hospital Course: 01/28/2024: Transfer to [facility] for T2 dens Fx. Admitted to [facility] 01/29/2024 No acute events 01/29 No acute events 01/30 Restarting Warfarin, Tolerating po 01/31 No acute events 02/01: Medically cleared for discharge to SNF. 02/02: Held Warfarin. Medically cleared. 02/03: No acute issues. Med clear 24 Hour Events: Eager to go to SNF. Denies pain on exam. No numbness and tingling. Passing flatus. Report BM yesterday. Vital Signs reviewed. Afebrile, Normotensive. Nontachyardic. Saturating 100% on RA. No new Labs. INR 1.25 -- PHYSICAL EXAM -- Vital Signs: Vital sign ranges over the past 24 hours (retrieved 02/05/2024 at 2:49 PM): Tmax (24 hours): 97.9 F (36.6 C) Pulse Av Min: 78 Max: 85 Systolic (24hrs), Av , Min:99 , Max:144 Diastolic (24hrs), Av, Min:40, Max:60 MAP (mmHg) Av mmHg Min: 51 mmHg Max: 87 mmHg Resp Av Min: 16 Max: 18 SpO2 Av % Min: 100 % Max: 100 % -- PHYSICAL EXAM -- GENERAL: Laying in bed NEURO: A&Ox3, motor and neuro intact HEENT: Normocephalic, atraumatic CARDIOVASCULAR: RRR. nontachycardic PULMONARY: CTAB on RA ABDOMINAL: S/ND/NT EXTREMITIES: No edema, FERRER spontaneously SKIN: warm and dry LABORATORY RESULTS (LAST 24 HOURS) CBC/PT/INR 02/05/2024 12:43 AM INR 1.25 Basic Metabolic Panel No lab values to display. Fingerstick Glucose (last 72 hours) (Last 10 results in the past 72 hours) Glucose 02/05/24 1140 217 02/05/24 0916 144 02/04/24 2027 214 02/04/24 1614 130 02/04/24 1140 256 02/04/24 0738 145 02/03/24 2045 161 02/03/24 1645 194 02/03/24 1200 161 02/03/24 0726 119 IMAGING RESULTS (PERSONALLY REVIEWED) All admit imaging and follow up imaging reviewed. No new imaging for review. ASSESSMENT & PLAN Diagnoses: 1. S/p unwitnessed fall 01/28/2024 2 Type 2 Dens Fx 3. Acute pain due to trauma 4. Dysphagia 5. Coagulation due to medication use 6. Hx Dementia 7. Hx depression No past medical history on file. Incidental Findings: Reviewed on 01/29/2024 CI. 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 Acute pain d/t trauma, - Continue Tylenol 1000 mg q8h scheduled - Continue Melatonin 3 mg Q hs - Continue home med of Celexa 10 mg Q day Cardiovascular: Hx of HTN, HLD, pacemaker, A-Fib on warfarin - Continue VS per unit protocol - Continue home med Diltiazem - Continue home med Lasix - Continue home med Lisinopril - Continue home med Pravastatin, consider changing to atorvastatin given ICA stenosis -Continue coumadin 2mg daily Respiratory: Sats appropriate on oxygen or room air, IS goal is 800 cc - Continue pulmonary toilet, encourage IS - Respiratory 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 Horse Farm Manager Protocol - Maintain O2 Sats > 92% GI/Diet: Tolerating po with no emesis - Continue regular diet dysphagia Advanced solids level 3 with thin liquids - Continue bowel regimen of senna, miralax, prn dulcolax HEDIS SPECIALIST recs -May consider completion of instrumental assessment via MBS to r/o airway invasion vs close clinical monitoring of pulmonary status - Suggest considering GI workup for suspected esophageal dysphagia given h/o post prandial emesis - Dysphagia Advanced solids-Level 3 and Thin Liquids - Should patient exhibit pocketing or high volumes of oral residuals, please make the appropriate downgrade to either mechanical soft or puree solids. - Continue B-12 1000 mcq daily -Continue Vitamine D2 1000 units Q day Renal/Electrolytes: GFR 42 on admission , voiding spontaneously -BMP prn Heme: HDS, Stable H/H, PMHx of anemia -VS per unit protocol - No indication for transfusion - CBC prn - Obtain INR daily ID: No leukocytosis, no fever or chills, Concern for UTI at OSH Bactrim course completed. - No Abx indication Endocrine: DM2 BG between 130- 217 over the last 24 hours, -Continue blood glucose monitoring AC -Continue sliding scale insulin AC MSK: Dens type 2 fx, non op NSGY signed off -[place] collar at all times - PT/OT consulted, recs SNF - Progressive mobility - WBAT - Spines: continue [place] collar PPX: - VTE: Continue SCDs - Warfarin restarted 01/30. - INR daily - Stress Ulcer PPx: Not indicated. Tubes/Lines/Drains - Maintain PIVs Dispo: Medically cleared for discharge to SNF. Pre-cert pending. Follow up: - Follow up with ortho Spine (Dr. Maya) in two weeks - Follow up with your PCP regarding your incidental findings. - Trauma follow up not indicated Corina German APRN-WESTERN PHILOSOPHY PROFESSOR Trauma Surgery Surgical Critical Care *For urgent issues arising after 5PM during the week or on weekends/holiday, please page the trauma resident conditioner tumbler at [phone]. This patient's plan of care was discussed with Trauma Floor attending, Dr. Iesha Gold MD. Associated attestation - Iesha Gold MD - 02/05/2024 4:41 PM EDT Supervisory Physician Note: I personally discussed the patient's presentation and plan of care with Corina Vora. I reviewed the patient's vital signs, labs, and imaging. I reviewed and agree with the care plan as listed above. I have personally performed a face to face diagnostic evaluation on this patient today. I have reviewed and agree with the care plan as listed above. History and exam by me shows: Assessment and Plan: 83 yo F s/p ground level fall with Type II dens fracture Continue multimodal pain Continue celexa Appreciate geriatrics assistance INR subtherapeutic today again- start therapeutic lovenox while bridging to coumadin PT/OT- SNF pending - medically cleared, discharging today Home meds: -Continue- statin, lisinopril, lasix, coumadin, diltiazem, Vitamin D -Holding- aricept (trying to taper off OP) Incidentals- severe ICA stenosis- discussed DVT prophylaxis- on therapeutic AC Flanagan- None Diagnosis List Type II dens fracture Atrial fibrillation on AC Coagulopathy due to medication use Demential, mild CAD HTN Type II DM Anxiety Depression ICA stenosis, bilateral Right vertebral artery stenosis Esophageal dysphagia Anorexia/poor appetite ERON, resolved Insomnia HLD Vitamin D deficiency Operative procedures by this team None Split/Shared Documentation I approve the management plan for this patient and take responsibility for the plan as documented. Iesha Gold MD Images from the original note were not included. GENERAL INFORMATION TRAUMA FLOOR - STAFF NOTE Patient Name: Bernardino Guzman Admission Date: 01/28/2024 Patient seen and examined on 02/04/24 INTERVAL HISTORY/EVENTS Background: Bernardino Guzman is a 83 year old female w/ pmh significant for A-fib on warfarin, mild dementia, CAD, CVA, HTN, and DM2 brought in by EMS from an outside hospital ([facility]) as a CAT 2 trauma following an unwitnessed fall w/ a daignosis of a Type 2 Dens Fracture. Per EMS, patient was found on floor after being down several hours. ? Head strike, ? LOC (patient amnestic to the event) + AC/AP (ASA & Plavix) Pt reports having a pacemaker in place but otherwise has no other medical concerns at this time. At baseline, pt uses a walker for ambulation. Per patient's paperwork, during her ED course at [facility], pt did have an episode of emesis for which she got a dose of zofran. INR was therapeutic at 2.85. UA was significant for a UTI and patient was given a dose of IV recephin. CTA Neck was not done prior to transfer. Hospital Course: 01/28/2024: Transfer to [facility] for T2 dens Fx. Admitted to [facility] 01/29/2024 No acute events 01/29 No acute events 01/30 Restarting Warfarin, Tolerating po 01/31 No acute events 02/01: Medically cleared for discharge to SNF. 02/02: Held Warfarin. Medically cleared. 24 Hour Events: No acute overnight events. Patient is doing well. Has no acute concerns. Is eating, drinking, and voiding approprietly. She is eager to go to the SNF. Asking to walk to restroom. Vital Signs reviewed. Afebrile, Normotensive. Tachycardia resolved. Saturating >98% on RA. Labs Reviewed: Mild, improved hyponatremia to 135. Mild uptrend in BUN 32(23). INR 1.76. -- PHYSICAL EXAM -- Vital Signs: Vital sign ranges over the past 24 hours (retrieved 02/04/2024 at 5:30 PM): Tmax (24 hours): 98.2 F (36.8 C) Pulse Av.7 Min: 8 Max: 97 Systolic (24hrs), Av , Min:109 , Max:152 Diastolic (24hrs), Av, Min:59, Max:73 MAP (mmHg) Av mmHg Min: 81 mmHg Max: 85 mmHg Resp Av Min: 18 Max: 18 SpO2 Av.7 % Min: 99 % Max: 100 % -- PHYSICAL EXAM -- GENERAL: Laying down in bed. HOB elevated. Pleasant. Peaceful. NEURO: Motor and sensation intact to b/L UE and LE. Appropriate speech. No difficulty swallowing. HEENT: Normocephalic, atraumatic CARDIOVASCULAR: RRR, No MRG PULMONARY: CTAB on RA ABDOMINAL: S/ND/NT EXTREMITIES: No edema, FERRER spontaneously SKIN: warm and dry LABORATORY RESULTS (LAST 24 HOURS) CBC/PT/INR 02/04/2024 1:45 AM INR 1.76 Basic Metabolic Panel 02/04/2024 1:45 AM Na 135 K 4.6 Cl 101 CO2 28 Gap 11 Glu 150 BUN 32 Cr 1.04 Ca 8.9 Fingerstick Glucose (last 72 hours) (Last 10 results in the past 72 hours) Glucose 02/04/24 1614 130 02/04/24 1140 256 02/04/24 0738 145 02/03/24 2045 161 02/03/24 1645 194 02/03/24 1200 161 02/03/24 0726 119 02/02/24 2134 144 02/02/24 1640 216 02/02/24 1138 149 IMAGING RESULTS (PERSONALLY REVIEWED) All admit imaging and follow up imaging reviewed. No new imaging for review. ASSESSMENT & PLAN Diagnoses: 1. S/p unwitnessed fall 01/28/2024 2 Type 2 Dens Fx 3. Acute pain due to trauma 4. Dysphagia No past medical history on file. Incidental Findings: Reviewed on 01/29/2024 CI. 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 Acute pain d/t trauma, - Continue Tylenol 1000 mg q8h scheduled - Continue Melatonin 3 mg Q hs - Continue home med of Celexa 10 mg Q day Cardiovascular: Hx of HTN, HLD, pacemaker, A-Fib on warfarin - Continue VS per unit protocol - Continue home med Diltiazem - Continue home med Lasix - Continue home med Lisinopril - Continue home med Pravastatin, consider changing to atorvastatin given ICA stenosis - Resume home Warfarin today Respiratory: Sats appropriate on oxygen or room air, IS goal is 800 cc - Continue pulmonary toilet, encourage IS - Respiratory 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 Horse Farm Manager Protocol - Maintain O2 Sats > 92% GI/Diet: Tolerating po with no emesis - Continue regular diet dysphagia Advanced solids level 3 with thin liquids - Continue bowel regimen of senna, miralax, prn dulcolax HEDIS SPECIALIST recs -May consider completion of instrumental assessment via MBS to r/o airway invasion vs close clinical monitoring of pulmonary status - Suggest considering GI workup for suspected esophageal dysphagia given h/o post prandial emesis - Dysphagia Advanced solids-Level 3 and Thin Liquids - Should patient exhibit pocketing or high volumes of oral residuals, please make the appropriate downgrade to either mechanical soft or puree solids. - Continue B-12 1000 mcq daily -Continue Vitamine D2 1000 units Q day Renal/Electrolytes: GFR 42 on admission , voiding spontaneously -BMP prn Heme: HDS, Stable H/H, PMHx of anemia -VS per unit protocol - No indication for transfusion - CBC prn - Obtain INR daily ID: No leukocytosis, no fever or chills, Concern for UTI at OSH Bactrim course completed. - No Abx indication Endocrine: DM2 BG between 128-184 over the last 24 hours, -Continue blood glucose monitoring AC -Continue sliding scale insulin AC MSK: Dens type 2 fx, non op NSGY signed off -[place] collar at all times - PT/OT consulted, recs SNF - Progressive mobility procedure - WBAT - Spines: must wear [place] collar PPX: - VTE: Continue SCDs - Warfarin restarted 01/30. - INR daily - Stress Ulcer PPx: Not indicated. Tubes/Lines/Drains - Maintain PIVs Dispo: Medically cleared for discharge to SNF. Pre-cert pending. Follow up: - Follow up with ortho Spine (Dr. Maya) in two weeks - Follow up with your PCP regarding your incidental findings. - Trauma follow up not indicated Elder Rodgers PA-C Trauma Surgery Surgical Critical Care Pager: [phone] *For urgent issues arising after 5PM during the week or on weekends/holiday, please page the trauma resident conditioner tumbler at [phone]. This patient's plan of care was discussed with Trauma Floor attending, Dr. Iesha Gold MD. Associated attestation - Iesha Gold MD - 02/05/2024 8:47 AM EDT Supervisory Physician Note: I personally discussed the patient's presentation and plan of care with Elder Rodgers. I reviewed the patient's vital signs, labs, and imaging. I reviewed and agree with the care plan as listed above. I have personally performed a face to face diagnostic evaluation on this patient today. I have reviewed and agree with the care plan as listed above. History and exam by me shows: Assessment and Plan: 83 yo F s/p ground level fall with Type II dens fracture Continue multimodal pain Continue celexa Appreciate geriatrics assistance INR subtherapeutic today- restart coumadin, if level drops again will need to start lovenox bridge (CHADS 2 Vasc 7 pts) HEDIS SPECIALIST following for dysphagia PT/OT- SNF pending - medically cleared Home meds: -Continue- statin, lisinopril, lasix, coumadin, diltiazem, Vitamin D -Holding- aricept (trying to taper off OP) Incidentals- severe ICA stenosis- discussed DVT prophylaxis- on therapeutic AC Flanagan- None Diagnosis List Type II dens fracture Atrial fibrillation on AC Coagulopathy due to medication use Demential, mild CAD HTN Type II DM Anxiety Depression ICA stenosis, bilateral Right vertebral artery stenosis Esophageal dysphagia Anorexia/poor appetite ERON, resolved Insomnia HLD Vitamin D deficiency Operative procedures by this team None Split/Shared Documentation I approve the management plan for this patient and take responsibility for the plan as documented. Iesha Gold MD Images from the original note were not included. GERIATRIC CONSULT PROGRESS NOTE Patient Name: Bernardino Guzman Location: [place] [address] Attending: Iesha Gold MD PCP: Apurva Tatum MD, MD Cc: feel ok tired, cold want to sleep HIPAA: Verbal permission granted from patient to discuss case, including protected health information, on phone with socorro Hr Generalist: Not needed - patient preferred language is [place] History was obtained by: discussion with nursing staff and review of chart patient is NOT a reliable historian BRIEF SUMMARY OF PATIENT: 83 year old year old female with a history of atrial fib on warfarin, CAD, CVA , HTN type 2 DM, ( a1 c? ) mild to moderate dementia, anxiety with hx of falls, recently with head strike 3 wk prior to this admission, who was found down at home unwitnessed fall and taken to [place] [facility], unable to recall the event, became nauseated, and INR 2.85, UA suggestive of UTI, given rocephen x 1, and CTN was not done prior to transfer to ED was category 2 trauma, f presenting to ED on 01/28/2024 for dx of type 2 Dens fracture. 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 Depression, vs due to dementia ; family agrees with celexa - debility loss of muscle mass and decine in function family in agreement with snf - ICA stenosis bilat and rt vertebral artery stenosis , discussed with family, management per trauma team - 01/28 after eating well, began vomiting ,(also had an oxycodone then ) ? If due to that or bactrim changed to clear liquid HEDIS SPECIALIST consulted - started on celexa 10mg for depression anxiety delirium /dementia - GOC discussion changed to DNRCCA DNI , no feeding tube, goal improve nutrition and strength at rehab - upright films c spine completed and eval by Dr Maya , follow up in 2 wk, ASpen collar at all times, neurosurg signed off - director field services did not see pt, ; recommends Boost GC max Tid 01/30/24 seen by HEDIS SPECIALIST ; suspects esophageal dysphagia ? Oropharyngeal dyspahgia component , failied YSP , Recommendations ; Patient appears to be at a low-moderate risk for dysphagia given these findings paired with multiple dysphagia risk factors. Given diminished pulmonary clearance, diminished immune response, and diminished bacteriological contents patient risk for aspiration related pulmonary complication is currently perceived to be low (please see chart above for impacting factors). Given these consideration would suggest initiation of Dysphagia Diet Level 3-Mechanically Advanced/thin consistency diet with set up assist and intermittent supervision. An instrumental swallow via MBS may be beneficial in r/o airway invasion with PO intake given heightened risk with presence of C5-6 osteophytes and subtle s/sx of oropharyngeal incoordination. If this does not align with patient GOC, then would suggest ongoing clinical monitoring of diet tolerance and pulmonary health for early detection of potential aspiration. Would suggest considering GI workup for suspected esophageal phase dysphagia given h/o prandial emesis should patient/family wish to further assess this issue. 01/30 resumed coumadin 2mg/d Nausea felt to be due to opiods stopped 01/31 one episode of tachyardia , tolerating po foods soups without emesis, poor po intake 02/01 waiting for beds a snf , ambulated 10 ft then 25 ft x 2 with PT , and is ambulating to bathroom Celexa increased to 20mg /d on 02/02 Medically cleared for discharge per trauma team note Needs plan for : Incidental Findings: Reviewed on 01/29/2024 CI. Discussed by AA on 01/31 Advanced atherosclerotic disease resulting in severe stenosis ( >70%) of the proximal ICAs and severe stenosis at the right vertebral artery origin Pt lying in bed room dark at 9:30am no breakfast , pt unable to call to order breakfast Pt reports she is in bed because cold and tired. When asked if she needs to go to bathroom , she endorses this and allows me to assist her to bathroom She is aware she is in the hospital, did not recall snf for rehab recommended and did not recall neck fx GERIATRIC ROS: Cognitive Status: mild dementia . ,mild hypoactive delirium Mood: depressed mood Sleep: poor sleep , awakened at night and sleeps poorly at night she reports even at home Appetite: poor , Pain: denies Interval Falls: none Bowel Function: incontinent of stool x2 today , Bladder Function: continent with timed toileting Indwelling catheters: no Restraint use in last 24 hr: none Antipsychotic/opioid/benzo in last 24 hr: Celexa 20mg/d melatonin EKG 02/02/24 QTc: 464 atrial fib poor R wave progression Social; lived alone , had a few hours of CARE NAVIGATOR a day Advance Care Planning: Code Status: DNR Comfort Care Arrest- Do Not Intubate Living Will: yes Health Care Power of Industrial Hygiene Manager: yes dtr socorro Franklin Current Medications: Current Facility-Administered Medications: senna (SENOKOT) tablet, 8.6 mg, Oral, At Bedtime, Iesha Gold MD, 8.6 mg at 02/03/242020 warfarin (COUMADIN) tablet, 2 mg, Oral, Daily Warfarin, Elder Rodgers PA-C citalopram (CeleXA) TABS, 20 mg, Oral, Daily, Christin Camara, WALLPAPER SCRAPER-WESTERN PHILOSOPHY PROFESSOR, 20 mg at 02/04/24 0856 dextrose 10 % iv infusion, 125 mL, Intravenous, PRN OR glucagon (GLUCAGEN) 1 MG injection, 1 mg, Subcutaneous, PRN OR dextrose (GLUTOSE) 40 % oral gel, 15 g of glucose, Buccal, PRN OR dextrose (GLUTOSE) 40 % oral gel, 30 g of glucose, Buccal, PRN, Ted Torres APRN-BECKY insulin lispro (HumaLOG) 100 UNIT/ML injection, 1-7 Units, Subcutaneous, 3x Daily AC, Ted Torres APRN-CNP, 1 Units at 02/03/24 1716 polyethylene glycol (MIRALAX) 17 g packet, 17 g, Oral, Daily, Ted Torres APRN-CNP, 17 g at 02/03/24 0814 acetaminophen (TYLENOL) tablet, 1,000 mg, Oral, Every 8 hours, Ted Torres APRN-CNP, 1,000 mg at 02/04/24 0855 ondansetron (ZOFRAN-ODT) disintegrating tablet, 4 mg, Oral, Q6H PRN, Ted Torres APRN-BECKY vitamin B-12 (CYANOCOBALAMIN) tablet, 1,000 mcg, Oral, Daily, Christin Camara APRN-CNP, 1,000 mcg at 02/04/24 0855 Normal consistency supplement, , Oral, 3x Daily with Meals, Christin Camara APRN-CNP, Given at 02/03/24 1700 melatonin tablet, 3 mg, Oral, At Bedtime, Christin Camara APRN-CNP, 3 mg at 02/03/242020 lisinopril (ZESTRIL) tablet, 2.5 mg, Oral, Daily, Astrid Conrad, DO, 2.5 mg at 02/04/24 0856 diltiazem (CARDIZEM CD) 24 hour capsule, 120 mg, Oral, At Bedtime, Astrid Conrad DO, 120 mg at 02/03/24 202 furosemide (LASIX) tablet, 20 mg, Oral, Q48H, Astrid Conrad DO, 20 mg at 02/03/24 0814 cholecalciferol (VITAMIN D3) tablet, 25 mcg, Oral, Daily, Astrid Conrad DO, 1,000 Units at 02/04/24 0855 pravastatin (PRAVACHOL) tablet, 80 mg, Oral, Daily, Astrid Conrad DO, 80 mg at 02/04/24 0855 Physical Examination: BP 109/73 (BP Location: left arm) Pulse 89 Temp 97.9 F (36.6 C) (Oral) Resp 18 Ht 5' 4 (1.626 m) Wt 105 lb (47.6 kg) SpO2 100% BMI 18.02 kg/m OBJECTIVE: BP 109/73 (BP Location: left arm) Pulse 89 Temp 97.9 F (36.6 C) (Oral) Resp 18 Ht 5' 4 (1.626 m) Wt 105 lb (47.6 kg) SpO2 100% BMI 18.02 kg/m Date/Time Temp Pulse Resp Arterial BP MAP BP MAP (mmHg) SpO2 Weight O2 Device O2 Flow Rate (l/min) FiO2 (%) [facility] 02/04/24 0500 97.9 F (36.6 C) 89 18 -- -- 109/73 85 mmHg 100 % -- Room air -- -- CS 02/03/24 2050 98 F (36.7 C) 8 18 -- -- 152/59 81 mmHg 99 % -- -- -- -- CC 02/03/24 1348 97.7 F (36.5 C) 86 18 -- -- 126/65 80 mmHg 99 % -- Room air -- -- OA 02/03/24 0947 98.1 F (36.7 C) 89 18 -- -- 130/77 93 mmHg 100 % -- Room air -- -- OA 02/03/24 0814 -- -- -- -- -- -- -- -- -- Room air -- -- HB 02/03/24 0813 -- 99 18 -- -- 169/70 95 mmHg -- -- -- -- -- HB 02/03/24 0625 98.6 F (37 C) 92 17 -- -- 99/75 83 mmHg 98 % -- Room air -- -- SP 02/03/24 0520 98.5 F (36.9 C) 63 18 -- -- 139/75 88 mmHg 100 % -- Room air -- -- CT Wt Readings from Last 10 Encounters: 01/28/24 105 lb (47.6 kg) Due for wkly wt General; thin pale chronically ill frail appearing female lying in bed no distress, room dark, wearing aspen collar , alert and oriented x to person , a hospital, February 04, 2024, and POTUS, not to reason for admission , unable to state months of yr backwards correctly but missed only one month. This is improvement from initial admission. UB CAM + delirium Cognition ; follows commands. Does not initiate conversation very often and answers are brief. Mood withdrawn, lying in bed dark room most of my visits and reports she goes to bed because she is cold . Will sit up in chair when assisted HEENT; anicteric sclera, EOMI, face symmetrical, oral mucosa dry, no thrush,speech without dysarthria Thorax; clear no rales wheezes or rhonchi, kyphotic, unlabored, no cva tenderness Cor;irreg irreg nl s1, [id number] murmur abd ; flat soft nontender normoactive bowel sounds all quadrants Periph;no swelling bilat Gait ; stands to walker with min assist of one, ambulated with walker to bathroom with min assist of one , steady transfer good safety awareness with transfer to toilet , and needs some assist with hygiene. Transfers back to chair without assistance. Motor Tone: normal Drift: Spontaneous abnormal movements: none , neg tremor or cogwheel rigidity Unable to fully raise arm rt above shoulder , ? Adhesive capsulitis , RIGHT LEFT Deltoids 5 5 Biceps 5 5 Triceps 5 5 Hand 5 5 Hip flexion 5 5 Knee extension 5 5 Knee flexion 5 5 Dorsiflexion 5 5 Plantarflexion 5 5 Abbott diagnostic studies reviewed: CBC 02/03/2024 02/01/2024 01/31/2024 01/30/2024 01/29/2024 01/28/2024 1:00 AM 3:08 AM 1:03 AM 12:25 AM 3:43 AM 3:07 AM WBC 10.9 8.7 10.3 10.5 11.7 17.0 RBC 4.19 3.91 4.16 4.26 4.74 4.77 Hgb 11.8 11.0 11.6 12.1 13.4 13.3 Hct 35.8 33.1 35.3 36.2 40.5 40.4 MCV 85 85 85 85 86 85 RDW 15.4 15.4 15.6 14.8 15.6 15.5 Plt 339 285 309 317 344 368 BMP (last 1 year, up to 8 values) 02/04/2024 02/03/2024 02/01/2024 01/31/2024 01/30/2024 01/29/2024 01/28/2024 1:45 AM 1:00 AM 3:08 AM 1:03 AM 12:25 AM 3:43 AM 3:19 AM Na 135 134 138 137 137 141 138 K 4.6 4.4 3.5 3.5 3.5 3.7 4.7 Cl 101 100 100 100 100 102 100 CO2 28 27 28 29 30 28 27 Gap 11 11 14 12 11 15 16 Glu 150 124 88 106 136 109 190 BUN 32 23 16 17 25 15 19 Cr 1.04 1.16 1.08 0.99 1.04 0.95 1.26 Ca 8.9 8.8 8.7 8.6 8.7 8.7 8.8 eGFR 53 46 51 56 53 59 42 Creatinine clearance from [place]roft-Gault: 30 ml/min based on creatinine of 1.04 on 02/04/2024 using actual weight 47.6 kg (IBW 54.7 kg ignored) Estimated GFR: 53 on 02/04/2024 INR (no units) Date Value 02/04/2024 1.76 (H) 02/03/2024 2.74 (H) 02/02/2024 2.32 (H) 02/01/2024 1.88 (H) 01/31/2024 2.13 (H) No new imaging since 01/28 RECOMMENDATIONS RELEVANT TO THE GERIATRIC follow up visit A/P: discussed with umesh martins A/P: assessment and plan copied from [facility] note in italics from 02/01 reviewed revised and revisions in bold #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 Follow up outpt with vascular if aligns with goals of care - improved UB CAM today , able to WBC improved from 17-> 10-> 8.7-> 10.9 not on antibx at this time, completed bactrim Sodium stable 137-> 138-> 135 Creat stable 1.04 -> 1.08 -> 1.04 - mental status continues to improve, and her hypoactive delirium is resolving , UTI resolved. Difficult to sort out how much of her cognitive deficit is dementia, delirium or depression, and I hopefully she will improve In a structured setting of a longterm and with a month of celexa. Discussed with family today on phone. Reviewed with Socorro that the aricept initially was going to be tapered off but pt had episodes of bradycardia and nausea vomiting so stopped it and do not recommend resuming aricept or other anticholinesterase inhibitor as pt did not make progress on aricept but declined in wt by 20 lb in 6 months. Dtr in agreement with plan. They follow with neuro John Hensley in [place] - I discussed with Socorro the findings on CTA of neck of severe stenosis of proximal ICA and severe rt vertebral artery stenosis and risks of further strokes. She reports pt has a vascular surgeon in [place], I recommended that she follow up with a vascular surgeon to discuss options, risks vs benefits and see if surgical intervention aligns with pt's GOC. She will consider making appt with the vasc surgeon in [place], informed her that there may also be one at [facility] and will check with trauma team -02/03 met with nursing to discuss delirium precautions and turning on lights ordering food for pt and encouraging her to sit in chair as she will stay in bed 03/02 if not encouraged. - continue delirium precautions , melatonin - up to chair all meals - ambulate to bathroom timed toileting # poor po intake # moderate protein calorie malnutrition suspected , ( at least) #19 lb wt loss # suspect esophageal dysphagia and suspect mild oropharyngeal dysphagia # nausea /vomiting - appreciate HEDIS SPECIALIST note and agree with her recommendations - pt continues to eat poorly and needs much encouragement with supplements and meals. - pt needs a wt today - hopefully appetite will improve as she is now off bactrim and aricept. - continue wkly wt repeat # adjustment disorder with depressed mood anxiety in setting of dementia # excessive fatibue - continue celexa 20mg /d stared 02/02 and QTc ok , but will need to be monitored in 2 wk This is to help with mood anxiety deliruim due to dementia - pt continues to be apathetic and wishes to remain in bed during day. Encouraged up in chair Summary 83 year old year old female with a history of atrial fib on warfarin, CAD, CVA , HTN type 2 DM, mild to moderate dementia, anxiety with hx of falls,who was found down and found to have a DENS type 2 fx no surgical intervention needed, wearing ASPEN collar, and found to have bilat ICA stenosis and rt vertebral artery stenosis Medical management - continue celexa 20m g/d - continue to avoid anticholinesterase inhibitors due to bradycardia and wt loss - continue to avoid anticholinergic meds and benzodiazepines and antipsychotic meds - stop senna and zofran on discharge Call to dtr TIFFANY chong to update answered all questions Thank you for the consultation and allowing the Geriatric Medicine service to work with you for the benefit of your older patient. This patient has chronic illnesses which increases his/her morbidity and mortality risk and necessitate consistent outpatient follow up. Portions of medical record reviewed for pertinent issues including active problem list, medication list, allergies, social history, health maintenance, notes from previous encounters, lab results, and imaging. Plan formed in collaboration with patient. Patient aware of plan and reason for interventions. Patient agrees with and understands plan. Patient will call if symptoms not improved or has further concerns. Christin Camara, MSN, WALLPAPER SCRAPER, WESTERN PHILOSOPHY PROFESSOR Adult/Geriatric Nurse Practitioner [facility] [address] [place] [address] [id number] pager: [phone] Images from the original note were not included. GENERAL INFORMATION TRAUMA FLOOR - STAFF NOTE Patient Name: Bernardino Guzman Admission Date: 01/28/2024 Patient seen and examined on 02/03/24 INTERVAL HISTORY/EVENTS Background: Bernardino Guzman is a 83 year old female w/ pmh significant for A-fib on warfarin, mild dementia, CAD, CVA, HTN, and DM2 brought in by EMS from an outside hospital ([facility]) as a CAT 2 trauma following an unwitnessed fall w/ a daignosis of a Type 2 Dens Fracture. Per EMS, patient was found on floor after being down several hours. ? Head strike, ? LOC (patient amnestic to the event) + AC/AP (ASA & Plavix) Pt reports having a pacemaker in place but otherwise has no other medical concerns at this time. At baseline, pt uses a walker for ambulation. Per patient's paperwork, during her ED course at [facility], pt did have an episode of emesis for which she got a dose of zofran. INR was therapeutic at 2.85. UA was significant for a UTI and patient was given a dose of IV recephin. CTA Neck was not done prior to transfer. Hospital Course: 01/28/2024: Transfer to [facility] for T2 dens Fx. Admitted to [facility] 01/29/2024 No acute events 01/29 No acute events 01/30 Restarting Warfarin, Tolerating po 01/31 No acute events 02/01: Medically cleared for discharge to SNF. 24 Hour Events: No acute overnight events. Patient is doing well. Denies pain. Has no acute concerns. Is eating, drinking, and voiding approprietly. Vital Signs reviewed. Afebrile, Normotensive. Tachycardia resolved. Saturating >98% on RA. Labs Reviewed: Mild hyponatremia to 134. INR 2.74. Intake/Output I: x2 meals UOP: x5 Stool: x 2 Last BM recorded: 02/01 -- PHYSICAL EXAM -- Vital Signs: Vital sign ranges over the past 24 hours (retrieved 02/03/2024 at 1:18 PM): Tmax (24 hours): 98.6 F (37 C) Pulse Av.7 Min: 63 Max: 99 Systolic (24hrs), Av , Min:99 , Max:169 Diastolic (24hrs), Av, Min:64, Max:89 MAP (mmHg) Av.8 mmHg Min: 83 mmHg Max: 106 mmHg Resp Av.8 Min: 17 Max: 18 SpO2 Av.8 % Min: 97 % Max: 100 % -- PHYSICAL EXAM -- GENERAL: Laying down in bed. HOB elevated. Pleasant. NEURO: Motor and sensation intact to b/L UE and LE. Appropriate speech HEENT: Normocephalic, atraumatic CARDIOVASCULAR: RRR, No MRG PULMONARY: CTAB on RA ABDOMINAL: S/ND/NT EXTREMITIES: No edema, FERRER spontaneously SKIN: warm and dry LABORATORY RESULTS (LAST 24 HOURS) CBC/PT/INR 02/03/2024 02/02/2024 1:00 AM 4:12 PM WBC 10.9 -- RBC 4.19 -- Hgb 11.8 -- Hct 35.8 -- MCV 85 -- RDW 15.4 -- Plt 339 -- INR 2.74 2.32 Basic Metabolic Panel 02/03/2024 1:00 AM Na 134 K 4.4 Cl 100 CO2 27 Gap 11 Glu 124 BUN 23 Cr 1.16 Ca 8.8 Fingerstick Glucose (last 72 hours) (Last 10 results in the past 72 hours) Glucose 02/03/24 1200 161 02/03/24 0726 119 02/02/24 2134 144 02/02/24 1640 216 02/02/24 1138 149 02/02/24 0752 110 02/01/24 2042 192 02/01/24 1648 100 02/01/24 1146 220 Comment: Notified JARED MEDEL MD
02/01/24 0742 131 Comment: Notified JARED MEDEL MD
IMAGING RESULTS (PERSONALLY REVIEWED) All admit imaging and follow up imaging reviewed. No new imaging for review. ASSESSMENT & PLAN Diagnoses: 1. S/p unwitnessed fall 01/28/2024 2 Type 2 Dens Fx 3. Acute pain due to trauma 4. Dysphagia No past medical history on file. Incidental Findings: Reviewed on 01/29/2024 CI. 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 Will continue tomorrow. (See Heme) Respiratory: Sats appropriate on oxygen or room air, IS goal is 800 cc - Continue pulmonary toilet, encourage IS - Respiratory 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 Horse Farm Manager Protocol - Maintain O2 Sats > 92% GI/Diet: Tolerating po with no emesis - Continue regular diet dysphagia Advanced solids level 3 with thin liquids - Continue bowel regimen of senna, miralax, prn dulcolax HEDIS SPECIALIST recs -May consider completion of instrumental assessment via MBS to r/o airway invasion vs close clinical monitoring of pulmonary status - Suggest considering GI workup for suspected esophageal dysphagia given h/o post prandial emesis - Dysphagia Advanced solids-Level 3 and Thin Liquids - Should patient exhibit pocketing or high volumes of oral residuals, please make the appropriate downgrade to either mechanical soft or puree solids. - Continue B-12 1000 mcq daily -Continue Vitamine D2 1000 units Q day Renal/Electrolytes: GFR 42 on admission , voiding spontaneously -BMP prn Heme: HDS, Stable H/H, PMHx of anemia -VS per unit protocol - No indication for transfusion - CBC prn - Obtain INR daily ID: No leukocytosis, no fever or chills, Concern for UTI at OSH Bactrim course completed. - No Abx indication Endocrine: DM2 BG between 128-184 over the last 24 hours, -Continue blood glucose monitoring AC -Continue sliding scale insulin AC MSK: Dens type 2 fx, non op NSGY signed off -[place] collar at all times - PT/OT consulted, recs SNF - Progressive mobility procedure - WBAT - Spines: must wear [place] collar PPX: - VTE: Continue SCDs - Warfarin restarted 01/30. Hold this evening. - INR daily - Stress Ulcer PPx: Not indicated. Tubes/Lines/Drains - Maintain PIVs Dispo: Medically cleared for discharge to SNF. Pre-cert pending. Follow up: - Follow up with ortho Spine (Dr. Maya) in two weeks - Follow up with your PCP regarding your incidental findings. - Trauma follow up not indicated Elder Rodgers PA-C Trauma Surgery Surgical Critical Care Pager: [phone] *For urgent issues arising after 5PM during the week or on weekends/holiday, please page the trauma resident conditioner tumbler at [phone]. This patient's plan of care was discussed with Trauma Floor attending, Dr. Iesha Gold MD. Associated attestation - Iesha Gold MD - 02/03/2024 4:21 PM EDT Supervisory Physician Note: I personally discussed the patient's presentation and plan of care with Elder Rodgers. I reviewed the patient's vital signs, labs, and imaging. I reviewed and agree with the care plan as listed above. I have personally performed a face to face diagnostic evaluation on this patient today. I have reviewed and agree with the care plan as listed above. History and exam by me shows: Assessment and Plan: 83 yo F s/p ground level fall with Type II dens fracture Continue multimodal pain Continue celexa Appreciate geriatrics assistance Continue home warfarin 2 mg every day- will hold evening dose if still here due to rapid rise in INR HEDIS SPECIALIST following for dysphagia PT/OT- SNF pending - medically cleared Slight bump in Cr- check BMP tomorrow, cbc prn Home meds: -Continue- statin, lisinopril, lasix, coumadin, diltiazem, Vitamin D -Holding- aricept (trying to taper off OP) Incidentals- severe ICA stenosis- discussed DVT prophylaxis- on therapeutic AC Flanagan- None Diagnosis List Type II dens fracture Atrial fibrillation on AC Coagulopathy due to medication use Demential, mild CAD HTN Type II DM Anxiety Depression ICA stenosis, bilateral Right vertebral artery stenosis Esophageal dysphagia Anorexia/poor appetite ERON, resolved Insomnia HLD Vitamin D deficiency Operative procedures by this team None Split/Shared Documentation I approve the management plan for this patient and take responsibility for the plan as documented. Iesha Gold MD Images from the original note were not included. GENERAL INFORMATION TRAUMA FLOOR - STAFF NOTE Patient Name: Bernardino Guzman Admission Date: 01/28/2024 Patient seen and examined on 02/02/24 INTERVAL HISTORY/EVENTS Background: Bernardino Guzman is a 83 year old female w/ pmh significant for A-fib on warfarin, mild dementia, CAD, CVA, HTN, and DM2 brought in by EMS from an outside hospital ([facility]) as a CAT 2 trauma following an unwitnessed fall w/ a daignosis of a Type 2 Dens Fracture. Per EMS, patient was found on floor after being down several hours. ? Head strike, ? LOC (patient amnestic to the event) + AC/AP (ASA & Plavix) Pt reports having a pacemaker in place but otherwise has no other medical concerns at this time. At baseline, pt uses a walker for ambulation. Per patient's paperwork, during her ED course at [facility], pt did have an episode of emesis for which she got a dose of zofran. INR was therapeutic at 2.85. UA was significant for a UTI and patient was given a dose of IV recephin. CTA Neck was not done prior to transfer. Hospital Course: 01/28/2024: Transfer to [facility] for T2 dens Fx. Admitted to [facility] 01/29/2024 No acute events 01/29 No acute events 01/30 Restarting Warfarin, Tolerating po 01/31 No acute events 24 Hour Events: No acute overnight events. Patient is doing well. Has no acute concerns. She is sleeping peacefully and would like to continue to do so. Labs Reviewed: INR 2.32. Vital Signs reviewed. Afebrile,Normotensive, One episode of tachycardia (113), Saturating >98% on RA. Tmax 36.8 Intake/Output No Is/Os accurately documented Stool: x 3 Last BM recorded: 01/31 -- PHYSICAL EXAM -- Vital Signs: Vital sign ranges over the past 24 hours (retrieved 02/02/2024 at 6:13 PM): Tmax (24 hours): 98.4 F (36.9 C) Pulse Av.5 Min: 83 Max: 113 Systolic (24hrs), Av , Min:114 , Max:152 Diastolic (24hrs), Av, Min:68, Max:89 MAP (mmHg) Av.5 mmHg Min: 85 mmHg Max: 106 mmHg Resp Av.7 Min: 17 Max: 18 SpO2 Av.7 % Min: 98 % Max: 99 % -- PHYSICAL EXAM -- GENERAL: Laying down in bed. Sleeping peacefully. Easily awakens to voice. Pleasant. NEURO: Motor and sensation intact to b/L UE and LE. Appropriate speech HEENT: Normocephalic CARDIOVASCULAR: RRR, No MRG PULMONARY: CTAB on RA ABDOMINAL: S/ND/NT EXTREMITIES: No edema, FERRER SKIN: WDI LABORATORY RESULTS (LAST 24 HOURS) CBC/PT/INR 02/02/2024 4:12 PM INR 2.32 Basic Metabolic Panel No lab values to display. Fingerstick Glucose (last 72 hours) (Last 10 results in the past 72 hours) Glucose 02/02/24 1640 216 02/02/24 1138 149 02/02/24 0752 110 02/01/24 2042 192 02/01/24 1648 100 02/01/24 1146 220 Comment: Notified JARED MEDEL MD
02/01/24 0742 131 Comment: Notified JARED MEDEL MD
01/31/24 2106 184 01/31/24 1639 128 01/31/24 1210 162 IMAGING RESULTS (PERSONALLY REVIEWED) All admit imaging and follow up imaging reviewed. No new imaging ASSESSMENT & PLAN Diagnoses: 1. S/p unwitnessed fall 01/28/2024 2 Type 2 Dens Fx No past medical history on file. Incidental Findings: Reviewed on 01/29/2024 CI. 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 Acute pain d/t trauma, - Continue Tylenol 1000 mg q8h scheduled - Continue Oxycodone 2.5 mg q6h prn moderate-severe pain - Continue Melatonin 3 mg Q hs -Continue home med of Celexa 10 mg Q day - Cardiovascular: Hx of HTN, HLD, pacemaker, A-Fib on warfarin -Continue VS per unit protocol -Continue home med Diltiazem -Continue home med Lasix -Continue home med Lisinopril -Continue home med Pravastatin, consider changing to atorvastatin given ICA stenosis - Continue Warfarin 2 mg today Respiratory: Sats appropriate on oxygen or room air, IS goal is 800 cc - Continue pulmonary toilet, encourage IS - Respiratory 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 Horse Farm Manager Protocol - Maintain O2 Sats > 92% GI/Diet: Tolerating po with no emesis - Continue regular diet dysphagia Advanced solids level 3 with thin liquids - Continue bowel regimen of senna, miralax, prn dulcolax HEDIS SPECIALIST recs -May consider completion of instrumental assessment via MBS to r/o airway invasion vs close clinical monitoring of pulmonary status - Suggest considering GI workup for suspected esophageal dysphagia given h/o post prandial emesis - Dysphagia Advanced solids-Level 3 and Thin Liquids - Should patient exhibit pocketing or high volumes of oral residuals, please make the appropriate downgrade to either mechanical soft or puree solids. - Continue B-12 1000 mcq daily -Continue Vitamine D2 1000 units Q day Renal/Electrolytes: GFR 42 on admission , voiding spontaneously -BMP every other day Heme: HDS, Stable H/H, PMHx of anemia -VS per unit protocol - No indication for transfusion - CBC every other day - Obtain INR daily ID: No leukocytosis, no fever or chills, Concern for UTI at OSH, started on Bactrim -Bactrim DS x 3 days started at OSH for UTI will complete 3 days course end date 02/01 Endocrine: DM2 BG between 128-184 over the last 24 hours, -Continue blood glucose monitoring AC -Continue sliding scale insulin AC MSK: Dens type 2 fx, non op NSGY signed off -[place] collar at all times - PT/OT consulted, recs SNF - Progressive mobility procedure - WBAT - Spines cleared No must wear [place] collar PPX: VTE: Continue SCDs -Warfarin restarted 01/30 - INR every other day - Stress Ulcer PPx: Not indicated. Tubes/Lines/Drains - Maintain PIVs Dispo: - PT/OT recs for SNF - Medically cleared for DC to SNF, Follow up: - Follow up with ortho Spine (Dr. Maya) in two weeks - Follow up with your PCP regarding your incidental findings. Elder Rodgers PA-C Trauma Surgery Surgical Critical Care Pager: [phone] *For urgent issues arising after 5PM during the week or on weekends/holiday, please page the trauma resident conditioner tumbler at [phone]. This patient's plan of care was discussed with Trauma Floor attending, Dr. Iesha Gold MD. Associated attestation - Iesha Gold MD - 02/03/2024 1:40 PM EDT Supervisory Physician Note: I personally discussed the patient's presentation and plan of care with Elder Rodgers. I reviewed the patient's vital signs, labs, and imaging. I reviewed and agree with the care plan as listed above. I have personally performed a face to face diagnostic evaluation on this patient on 02/01 at approximately 0345 pm . I have reviewed and agree with the care plan as listed above. History and exam by me shows: Assessment and Plan: 83 yo F s/p ground level fall with Type II dens fracture Continue multimodal pain Continue celexa Appreciate geriatrics assistance Continue home warfarin 2 mg every day- check INR today if less than 2.0 will need to start heparin bridge HEDIS SPECIALIST following for dysphagia Completed course of Bactrim DS for UTI which was POA PT/OT- SNF pending Home meds: -Continue- statin, lisinopril, lasix, coumadin, diltiazem, Vitamin D -Holding- aricept (trying to taper off OP) Incidentals- severe ICA stenosis- discussed DVT prophylaxis- on therapeutic AC Flanagan- None Diagnosis List Type II dens fracture Atrial fibrillation on AC Coagulopathy due to medication use Demential, mild CAD HTN Type II DM Anxiety Depression ICA stenosis, bilateral Right vertebral artery stenosis Esophageal dysphagia Anorexia/poor appetite ERON, resolved Insomnia HLD Vitamin D deficiency Operative procedures by this team None Split/Shared Documentation I approve the management plan for this patient and take responsibility for the plan as documented. Iesha Gold MD Images from the original note were not included. GERIATRIC PROGRESS NOTE Patient Name: Bernardino Guzman Location: [id number] Attending: Iesha Gold MD Cc; tired wants to go to bed HIPAA: Verbal permission granted from patient to discuss case, including protected health information, in front of family son room at the time of the evaluation. Hr Generalist: Not needed - patient preferred language is [place] HPI: 83 year old year old female with a history of atrial fib on warfarin, CAD, CVA , HTN type 2 DM, ( a1 c? ) mild to moderate dementia, anxiety with hx of falls, recently with head strike 3 wk prior to this admission, who was found down at home unwitnessed fall and taken to [facility], unable to recall the event, became nauseated, and INR 2.85, UA suggestive of UTI, given rocephen x 1, and CTN was not done prior to transfer to ED was category 2 trauma, f presenting to ED on 01/28/2024 for dx of type 2 Dens fracture. 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 Depression, vs due to dementia ; family agrees with celexa - debility loss of muscle mass and decine in function family in agreement with snf - ICA stenosis bilat and rt vertebral artery stenosis , discussed with family, management per trauma team - 01/28 after eating well, began vomiting ,(also had an oxycodone then ) ? If due to that or bactrim changed to clear liquid HEDIS SPECIALIST consulted - started on celexa 10mg for depression anxiety delirium /dementia - GOC discussion changed to DNRCCA DNI , no feeding tube, goal improve nutrition and strength at rehab - upright films c spine completed and eval by Dr Maya , follow up in 2 wk, ASpen collar at all times, neurosurg signed off - director field services did not see pt, ; recommends Boost GC max Tid 01/30/24 seen by HEDIS SPECIALIST ; suspects esophageal dysphagia ? Oropharyngeal dyspahgia component , failied YSP , Recommendations ; Patient appears to be at a low-moderate risk for dysphagia given these findings paired with multiple dysphagia risk factors. Given diminished pulmonary clearance, diminished immune response, and diminished bacteriological contents patient risk for aspiration related pulmonary complication is currently perceived to be low (please see chart above for impacting factors). Given these consideration would suggest initiation of Dysphagia Diet Level 3-Mechanically Advanced/thin consistency diet with set up assist and intermittent supervision. An instrumental swallow via MBS may be beneficial in r/o airway invasion with PO intake given heightened risk with presence of C5-6 osteophytes and subtle s/sx of oropharyngeal incoordination. If this does not align with patient GOC, then would suggest ongoing clinical monitoring of diet tolerance and pulmonary health for early detection of potential aspiration. Would suggest considering GI workup for suspected esophageal phase dysphagia given h/o prandial emesis should patient/family wish to further assess this issue. 01/30 resumed coumadin 2mg/d Nausea felt to be due to opiods stopped 01/31 one episode of tachyardia , tolerating po foods soups without emesis, poor po intake 02/01 CM waiting for beds a snf Walked 10 ft then 25 ft x 2 with RW with PT today per PT rec snf Son at bedside, verbalized concern with a dtr trying to convice pt she will care for her at home, when the dtr who is HCPOA is making the decision for snf. Family concerned the other dtr lacks understanding of pt's care needs and is unable to provide safe care at home. Reassure Don that the HCPOA is the decision maker at this time for pt. 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 Appetite: poor , not hungry declining the boost , no nausea or vomiting or troubles with current diet per nu Pain: pain with raising rt shoulder x months , prior to admission Mobility: walks with physical therapy and to bathroom with assistance Bowel Function: intermittently incontinent of stool and urine Bladder Function: incotnient at times, continent with timed toileting Restraint use in last 24 hr: yes has rollbelt on Antipsychotic/opioid/benzo in last 24 hr: Melatonin 3mg/d Celexa 10mg/d Oxycdone 2.5mg prn EKG 01/28 QTc: 474 EKG 02/01 QTC 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, left anterior fascicular block , paced vent complexex Current Medications: Current Facility-Administered Medications: warfarin (COUMADIN) tablet, 2 mg, Oral, Daily Warfarin, Ted Torres, NILESH-WESTERN PHILOSOPHY PROFESSOR, 2 mg at 02/01/24 1708 dextrose 10 % iv infusion, 125 mL, Intravenous, PRN OR glucagon (GLUCAGEN) 1 MG injection, 1 mg, Subcutaneous, PRN OR dextrose (GLUTOSE) 40 % oral gel, 15 g of glucose, Buccal, PRN OR dextrose (GLUTOSE) 40 % oral gel, 30 g of glucose, Buccal, PRN, Ted Torres, NILESH-WESTERN PHILOSOPHY PROFESSOR insulin lispro (HumaLOG) 100 UNIT/ML injection, 1-7 Units, Subcutaneous, 3x Daily AC, Ted Torres APRN-BECKY, 2 Units at 02/01/24 1227 polyethylene glycol (MIRALAX) 17 g packet, 17 g, Oral, Daily, Ted Torres APRN-WESTERN PHILOSOPHY PROFESSOR, 17 g at 02/02/24 0942 bisacodyl (DULCOLAX) 10 MG suppository, 10 mg, Rectal, Daily PRN, Ted Torres APRN-CNP oxyCODONE immediate release tablet, 2.5 mg, Oral, Q6H PRN, Ted Torres APRN-CNP acetaminophen (TYLENOL) tablet, 1,000 mg, Oral, Every 8 hours, Ted Torres APRN-CNP, 1,000 mg at 02/02/24 0942 ondansetron (ZOFRAN-ODT) disintegrating tablet, 4 mg, Oral, Q6H PRN, Ted Torres APRN-CNP vitamin B-12 (CYANOCOBALAMIN) tablet, 1,000 mcg, Oral, Daily, Christin Camara APRN-CNP, 1,000 mcg at 02/02/24 0942 citalopram (CeleXA) tablet, 10 mg, Oral, Daily, Christin Camara APRN-CNP, 10 mg at 02/02/24 0942 Normal consistency supplement, , Oral, 3x Daily with Meals, Christin Camara APRN-CNP, Given at 02/01/24 1700 melatonin tablet, 3 mg, Oral, At Bedtime, Christin Camara APRN-CNP, 3 mg at 02/01/24 2212 lisinopril (ZESTRIL) tablet, 2.5 mg, Oral, Daily, Astrid Conrad, DO, 2.5 mg at 02/02/24 0942 diltiazem (CARDIZEM CD) 24 hour capsule, 120 mg, Oral, At Bedtime, Lea Conradt, DO, 120 mg at 02/01/24 2212 furosemide (LASIX) tablet, 20 mg, Oral, Q48H, Lea Conradt, DO, 20 mg at 02/01/24 0829 cholecalciferol (VITAMIN D3) tablet, 25 mcg, Oral, Daily, Lea Conradt, DO, 1,000 Units at 02/02/24 0942 pravastatin (PRAVACHOL) tablet, 80 mg, Oral, Daily, Lea Conradt, DO, 80 mg at 02/02/24 0942 Physical Examination: BP 152/68 Pulse 89 Temp 98.2 F (36.8 C) (Oral) Resp 18 Ht 5' 4 (1.626 m) Wt 105 lb (47.6 kg) SpO2 98% BMI 18.02 kg/m OBJECTIVE: BP 152/68 Pulse 89 Temp 98.2 F (36.8 C) (Oral) Resp 18 Ht 5' 4 (1.626 m) Wt 105 lb (47.6 kg) SpO2 98% BMI 18.02 kg/m Wt Readings from Last 12 Encounters: 01/28/24 105 lb (47.6 kg) Expand All Collapse All GERIATRIC PROGRESS NOTE Patient Name: Bernardino Guzman Location: [place] [address] Attending: Tyree Muñoz MD Cc; nauseated HIPAA: Verbal permission granted from patient to discuss case, including protected health information, in front of family dtr and granddtr in room at the time of the evaluation. Hr Generalist: Not needed - patient preferred language is [place] HPI: 83 year old year old female with a history of atrial fib on warfarin, CAD, CVA , HTN type 2 DM, ( a1 c? ) mild to moderate dementia, anxiety with hx of falls, recently with head strike 3 wk prior to this admission, who was found down at home unwitnessed fall and taken to [facility], unable to recall the event, became nauseated, and INR 2.85, UA suggestive of UTI, given rocephen x 1, and CTN was not done prior to transfer to ED was category 2 trauma, f presenting to ED on 01/28/2024 for dx of type 2 Dens fracture. 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 Depression, vs due to dementia ; family agrees with celexa - debility loss of muscle mass and decine in function family in agreement with snf - ICA stenosis bilat and rt vertebral artery stenosis , discussed with family, management per trauma team - 01/28 after eating well, began vomiting ,(also had an oxycodone then ) ? If due to that or bactrim changed to clear liquid HEDIS SPECIALIST consulted - started on celexa 10mg for depression anxiety delirium /dementia - GOC discussion changed to DNRCCA DNI , no feeding tube, goal improve nutrition and strength at rehab - upright films c spine completed and eval by Dr Maya , follow up in 2 wk, ASpen collar at all times, neurosurg signed off - director field services did not see pt, ; recommends Boost GC max Tid 01/30/24 seen by HEDIS SPECIALIST ; suspects esophageal dysphagia ? Oropharyngeal dyspahgia component , failied YSP , Recommendations ; Patient appears to be at a low-moderate risk for dysphagia given these findings paired with multiple dysphagia risk factors. Given diminished pulmonary clearance, diminished immune response, and diminished bacteriological contents patient risk for aspiration related pulmonary complication is currently perceived to be low (please see chart above for impacting factors). Given these consideration would suggest initiation of Dysphagia Diet Level 3-Mechanically Advanced/thin consistency diet with set up assist and intermittent supervision. An instrumental swallow via MBS may be beneficial in r/o airway invasion with PO intake given heightened risk with presence of C5-6 osteophytes and subtle s/sx of oropharyngeal incoordination. If this does not align with patient GOC, then would suggest ongoing clinical monitoring of diet tolerance and pulmonary health for early detection of potential aspiration. Would suggest considering GI workup for suspected esophageal phase dysphagia given h/o prandial emesis should patient/family wish to further assess this issue. Family at bedside, states pt wanted to stay in bed Discussed that pt will be able to eat better if up in chair for all meals , has timed toileting and engaged with family during day Discussed ways to approach pt, ie say lets get up to the chair or go for a walk Dtr concerned about vomiting , states pt has not been eating for such a long time that she is not used to food Pt does not voice concerns has paucity of words GERIATRIC ROS: Cognitive Status: mild dementia mild hypoactive delirium resolving Mood: pleasant cooperative Sleep: ok Appetite: poor sipping gingerale Pain: none Mobility: walked with assistance of one to bathroom and toileted , did hygiene herself Bowel Function: slightly loose bm today Bladder Function: continent with timed toileting dark Restraint use in last 24 hr: yes rollbelt , chair saba Antipsychotic/opioid/benzo in last 24 hr: Celexa 10mg /d Oxycodone 2.5mg prn got one dose late 01/28 Melatonin 3mg/d aricept 5mgat night Pt on bactrim for UTIstarted late 01/28 EKG QTc: 474 Current Medications: Current Medications Current Facility-Administered Medications: lactated ringers iv infusion, , Intravenous, Continuous, Elder Rodgers PA-C, Last Rate: 50 mL/hr at 01/29/24 180, New Bag at 01/29/24 180 sulfamethoxazole-trimethoprim 800-160 MG (BACTRIM DS) tablet, 1 Tablet, Oral, 2x Daily, Elder Rodgers PA-C, 1 Tablet at 01/29/242125 enoxaparin (LOVENOX) 100 mg/mL custom injection 27 mg, 0.5 mg/kg (Mathews), Subcutaneous, 2x Daily, Elder Rodgers PA-C, 27 mg at 01/29/242125 donepezil (ARICEPT) tablet, 5 mg, Oral, At Bedtime, Elder Rodgers PA-C, 5 mg at 01/29/242125 [START ON 02/05/2024] donepezil (ARICEPT) tablet, 2.5 mg, Oral, At Bedtime, Elder Rodgers PA-C oxyCODONE immediate release tablet, 2.5 mg, Oral, Q4H PRN, Elder Rodgers PA-C, 2.5 mg at 01/29/24 193 citalopram (CeleXA) tablet, 10 mg, Oral, Daily, Christin Camara APRN-CNP, 10 mg at 01/29/24 1248 Normal consistency supplement, , Oral, 3x Daily with Meals, Christin Camara APRN-CNP, Given at 01/29/24 1200 melatonin tablet, 3 mg, Oral, At Bedtime, Christin Camara APRN-CNP, 3 mg at 01/29/242125 acetaminophen (TYLENOL) tablet, 1,000 mg, Oral, Q6H PRN, Nic Kennedy MD lisinopril (ZESTRIL) tablet, 2.5 mg, Oral, Daily, Astrid Conrad DO, 2.5 mg at 01/29/24 0858 diltiazem (CARDIZEM CD) 24 hour capsule, 120 mg, Oral, At Bedtime, Astrid Conrad DO, 120 mg at 01/29/24 2126 furosemide (LASIX) tablet, 20 mg, Oral, Q48H, Astrid Conrad DO, 20 mg at 01/28/24 0900 cholecalciferol (VITAMIN D3) tablet, 25 mcg, Oral, Daily, Astrid Conrad DO, 1,000 Units at 01/29/24 0858 pravastatin (PRAVACHOL) tablet, 80 mg, Oral, Daily, Astrid Conrad DO, 80 mg at 01/29/24 0858 docusate sodium (COLACE) capsule, 100 mg, Oral, 2x Daily, Nic Kennedy MD, 100 mg at 01/29/24 0858 senna (SENOKOT) tablet, 8.6 mg, Oral, At Bedtime, Nic Kennedy MD bisacodyl (DULCOLAX) 5 MG enteric coated tablet, 10 mg, Oral, Daily PRN, Nic Kennedy MD Physical Examination: BP 120/64 (BP Location: left arm) Pulse 85 Temp 97.9 F (36.6 C) (Oral) Resp 18 Ht 5' 4 (1.626 m) Wt 105 lb (47.6 kg) SpO2 99% BMI 18.02 kg/m OBJECTIVE: BP 120/64 (BP Location: left arm) Pulse 85 Temp 97.9 F (36.6 C) (Oral) Resp 18 Ht 5' 4 (1.626 m) Wt 105 lb (47.6 kg) SpO2 99% BMI 18.02 kg/m Date/Time Temp Pulse Resp Arterial BP MAP BP MAP (mmHg) SpO2 Weight O2 Device O2 Flow Rate (l/min) FiO2 (%) [facility] 01/30/24 1300 97.7 F (36.5 C) 54 17 -- -- 116/73 87 mmHg 97 % -- Room air -- -- 01/30/24 0654 97.9 F (36.6 C) 85 18 -- -- 120/64 83 mmHg 99 % -- Room air -- -- SP 01/29/24 2126 -- -- -- -- -- -- -- -- -- Room air -- -- AO 01/29/242036 97.8 F (36.6 C) 105 20 -- -- 156/82 101 mmHg 98 % -- Room air -- -- BH 01/29/24 1700 -- 106 18 -- -- 151/85 99 mmHg 98 % -- Room air -- -- MO 01/29/24 1333 98.8 F (37.1 C) 115 18 -- -- 122/76 90 mmHg 98 % -- Room air -- -- MO 01/29/24 0648 98.2 F (36.8 C) 77 17 -- -- 127/44 68 mmHg 98 % -- Room air -- -- SP Weight history: 111 lbs - November 2023; 114 lbs - October 2023; 121 lbs - Jul 2023 124 lbs - January 2023 per Care Everywhere Wt Readings from Last 10 Encounters: 01/28/24 105 lb (47.6 kg) General; pale , , frail cachectic chronically ill appearing female lying in bed, left side room dark at lunch time, wearing aspen, no distress, alert and oriented to person, son , month , yr , and reason for admission . Face without masked facies. Smiles, states she is at home Cognition follows commands , poor recall re; days events. Does not initiate conversation often , voice soft Mood ; prefers to stay in bed . But allows me to assist her to chair Attention improved since yesterday , UB CAM + for delirium waxes and waning roberto at night per nursing HEENT; anicteric sclera, EOMI, face symmetrical, oral mucosa moist lips dry neck not examined, wearing aspen collar, duoderm placed under brace anterior and posterior to protect the skin from pressure Thorax; clear no rales wheezes or rhonchi, kyphotic Cor; RRR nl s1, [id number] murmur abd ; round soft nontender normoactive bowel sounds all quadrants Rectal incontinent of bowel and bladder with timed toileting , large slightly loose stool today Periph no swelling bilat Neg cogwheel rigidity bradykinesia , tremor Abbott diagnostic studies personally reviewed: CBC 02/01/2024 01/31/2024 01/30/2024 01/29/2024 01/28/2024 3:08 AM 1:03 AM 12:25 AM 3:43 AM 3:07 AM WBC 8.7 10.3 10.5 11.7 17.0 RBC 3.91 4.16 4.26 4.74 4.77 Hgb 11.0 11.6 12.1 13.4 13.3 Hct 33.1 35.3 36.2 40.5 40.4 MCV 85 85 85 86 85 RDW 15.4 15.6 14.8 15.6 15.5 Plt 285 309 317 344 368 BMP (last 1 year, up to 8 values) 02/01/2024 01/31/2024 01/30/2024 01/29/2024 01/28/2024 3:08 AM 1:03 AM 12:25 AM 3:43 AM 3:19 AM Na 138 137 137 141 138 K 3.5 3.5 3.5 3.7 4.7 Cl 100 100 100 102 100 CO2 28 29 30 28 27 Gap 14 12 11 15 16 Glu 88 106 136 109 190 BUN 16 17 25 15 19 Cr 1.08 0.99 1.04 0.95 1.26 Ca 8.7 8.6 8.7 8.7 8.8 eGFR 51 56 53 59 42 LFT's (last 3 years, up to 8 values) No lab values to display. TSH 01/30/2024 01/29/2024 12:25 AM 11:31 AM TSH 1.148 1.160 Vitamin B12 (pg/mL) Date Value 01/30/2024 228 XR C-SPINE MORE THAN 5 VIEWS EXAMINATION: XR C-SPINE MORE THAN 5 VIEWS 01/29/2024 02:24 PM CLINICAL HISTORY: Type 2 Dens fracture ASSOCIATED DIAGNOSIS: ORDERING PROVIDER: ASTRID CONRAD TECHNOLOGISTS NOTE: Best possible standing images COMPARISON: CTA NECK W/ 01/28/2024, 3:28 AM FINDINGS: On the lateral view the C-spine is visible to the C5 level. The known odontoid fracture is questionably visible on the lateral view. There is loss of lordosis lower cervical spine and disc space narrowing and osteophytes at C5-6. The prevertebral soft tissues have normal contours. The bones are osteopenic. The left C3-4 neuroforamen is narrowed by bony encroachment. An implanted cardiac device is partially visualized. The aorta has wall calcifications. The lung apices are hyperinflated. IMPRESSION: The known odontoid fracture demonstrated on CT scan is questionably visible. MACRO: None Call to dtr socorro x 8 min ; she asks again about care needs if pt goes home, discussed benefits of care in home by loved ones, but lack of medical knowledge as nurse /MD not there. Discussed pt needs care specific to a pt with dementia, discussed LTC nurse pt ratio. Discussed snf vs LTC. Discussed pt needs 03/02 care where she goes. [place] looking at options. 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 # acute delirium due to trauma and uti and hospitalization sleep deprivation improving # B12 deficiency treated on b12 B12 is 228 Syphilis in NR WBC improved from 17-> 10-> 8.7 Sodium stable 137-> 138 Creat stable 1.04 -> 1.08 - finishing up bactrim, which may be contributing to poor po intake - improved delirium with treatment of uti and delirium precautions , family visists - encouragd family visits son here today updated dtr , labs stable - continue delirium precautions , melatonin - up to chair all meals - ambulate to bathroom timed toileting -antibx per trauma for UTI now on bactrim - Recommend discontinue oxycodone (done) - recommend EKG and if QTc 474 , stable increase celexa to 20mg /d (done ) updated dtr socorro, discussed CM note re; looking at other snf, and that pt accepted waiting for a pre-cert, dtr wishes to have a copy of discharge meds appts # pain due to odontoid fracture Recommend tylenol 650 q 8 hour ordered Recommend discontinue oxycodone (done) # poor po intake # moderate protein calorie malnutrition suspected , ( at least) #19 lb wt loss # suspect esophageal dysphagia and suspect mild oropharyngeal dysphagia # nausea /vomiting - appreciate HEDIS SPECIALIST note and agree with her recommendations - pt did well with boost and liked it, but is on clear liquids , hopefully will be chen to advamce - eitiology of nausea and vomiting, ? Esophageal motility issue vs opiod (discontinued) Will stop aricept. Limit use of opiods - continue wkly wt repeat # adjustment disorder with depressed mood anxiety in setting of dementia # excessive fatibue - continue celexa 10mg /d stared 01/28 and increase to 20mg /d if she tolerates this and QTc ok - To help with mood anxiety deliruim due to dementia - QTc 474 yesterday stable, , repeat today - pt continues to wish to remain in bed during day. Encouraged up in chair # bradycardia over wkend - aricept discontinued Friday due to nausea and bradycardia and wt loss are 2 other reasons not to resume it. Medical management - Recommend tylenol 650 q 8 hour ordered - Recommend discontinue oxycodone (done) - recommend EKG and if QTc stable increase celexa to 20mg /d (done) Code status is DNRCCA DNI HCPOA socorro franklin [phone] 1st alternate is Tanisha Rojas Geriatric Medicine will continue to follow I have personally reviewed the [employer] consultant notes, nursing notes, therapy and allied healthcare provider notes, labarotary tests and imaging/radiological tests. I have obtained pertinent history from the patient and/or surrogate including via chart review. I have independantly interpreted the tests performed and discussed management with other consultants/providers involved in the treatment of this patient. Christin Camara, MSN, WALLPAPER SCRAPER, WESTERN PHILOSOPHY PROFESSOR Adult/Geriatric Nurse Practitioner Department of Geriatric Medicine [facility] [address] [address] Geriatric pager: [phone] Personal pager: [phone] Images from the original note were not included. GENERAL INFORMATION TRAUMA FLOOR - STAFF NOTE Patient Name: Bernardino Guzman Admission Date: 01/28/2024 Patient seen and examined on 02/01/24 INTERVAL HISTORY/EVENTS Background: Bernardino Guzman is a 83 year old female w/ pmh significant for A-fib on warfarin, mild dementia, CAD, CVA, HTN, and DM2 brought in by EMS from an outside hospital ([facility]) as a CAT 2 trauma following an unwitnessed fall w/ a daignosis of a Type 2 Dens Fracture. Per EMS, patient was found on floor after being down several hours. ? Head strike, ? LOC (patient amnestic to the event) + AC/AP (ASA & Plavix) Pt reports having a pacemaker in place but otherwise has no other medical concerns at this time. At baseline, pt uses a walker for ambulation. Per patient's paperwork, during her ED course at [facility], pt did have an episode of emesis for which she got a dose of zofran. INR was therapeutic at 2.85. UA was significant for a UTI and patient was given a dose of IV recephin. CTA Neck was not done prior to transfer. Hospital Course: 01/28/2024: Transfer to [facility] for T2 dens Fx. Admitted to [facility] 01/29/2024 No acute events 01/29 No acute events 01/30 Restarting Warfarin, Tolerating po 01/31 No acute events 24 Hour Events: Upon examination this am she is sitting up in the chair visiting with malcom. She denies any pain. She is [place], denies any chest pain, SOB, nausea or vomiting. Tolerating po Labs Reviewed: No leukocytosis, H/H down trending 11.0/33.1 (11.6/35.3) BUN/CR and all lytes are acceptable. INR 1.88 Vital Signs reviewed. Afebrile,Normotensive, One episode of tachycardia (106), Sats appropriate on room air Tmax 36.8 Intake/Output PO: 410 Total 410 UOP: 6 occurrences not recorded Stool: x 3 Last BM recorded: 01/31 Tubes/Drains -- PHYSICAL EXAM -- Vital Signs: Vital sign ranges over the past 24 hours (retrieved 02/01/2024 at 8:04 AM): Tmax (24 hours): 98.2 F (36.8 C) Pulse Av.3 Min: 91 Max: 106 Systolic (24hrs), Av , Min:132 , Max:141 Diastolic (24hrs), Av, Min:75, Max:79 MAP (mmHg) Av.3 mmHg Min: 93 mmHg Max: 95 mmHg Resp Av.3 Min: 18 Max: 22 SpO2 Av.7 % Min: 97 % Max: 98 % -- PHYSICAL EXAM -- GENERAL: NAD sitting up in bed, with aspen collar. pleasant and conversant NEURO: GCS 15, alert and orient HEENT: Normocephalic CARDIOVASCULAR: RRR, No MRG PULMONARY: CTAB on RA ABDOMINAL: S/ND/NT EXTREMITIES: No edema, FERRER SKIN: [facility] LABORATORY RESULTS (LAST 24 HOURS) CBC/PT/INR 02/01/2024 3:08 AM WBC 8.7 RBC 3.91 Hgb 11.0 Hct 33.1 MCV 85 RDW 15.4 Plt 285 aPTT 33 INR 1.88 Basic Metabolic Panel 02/01/2024 3:08 AM Na 138 K 3.5 Cl 100 CO2 28 Gap 14 Glu 88 BUN 16 Cr 1.08 Ca 8.7 Fingerstick Glucose (last 72 hours) (Last 10 results in the past 72 hours) Glucose 02/01/24 0742 131 Comment: Notified JARED MEDEL MD
01/31/24 2106 184 01/31/24 1639 128 01/31/24 1210 162 01/31/24 0820 147 01/30/24 2148 164 01/30/24 1639 188 01/30/24 1200 192 01/30/24 0755 130 01/29/24 1154 188 IMAGING RESULTS (PERSONALLY REVIEWED) All admit imaging and follow up imaging reviewed. No new imaging ASSESSMENT & PLAN Diagnoses: 1. S/p unwitnessed fall 01/28/2024 2 Type 2 Dens Fx No past medical history on file. Incidental Findings: Reviewed on 01/29/2024 CI. 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 Acute pain d/t trauma, - Continue Tylenol 1000 mg q8h scheduled - Continue Oxycodone 2.5 mg q6h prn moderate-severe pain - Continue Melatonin 3 mg Q hs -Continue home med of Celexa 10 mg Q day - Cardiovascular: Hx of HTN, HLD, pacemaker, A-Fib on warfarin -Continue VS per unit protocol -Continue home med Diltiazem -Continue home med Lasix -Continue home med Lisinopril -Continue home med Pravastatin, consider changing to atorvastatin given ICA stenosis - Continue Warfarin 2 mg today Respiratory: Sats appropriate on oxygen or room air, IS goal is 800 cc - Continue pulmonary toilet, encourage IS - Respiratory 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 Horse Farm Manager Protocol - Maintain O2 Sats > 92% GI/Diet: Tolerating po with no emesis - Continue regular diet dysphagia Advanced solids level 3 with thin liquids - Continue bowel regimen of senna, miralax, prn dulcolax HEDIS SPECIALIST recs -May consider completion of instrumental assessment via MBS to r/o airway invasion vs close clinical monitoring of pulmonary status - Suggest considering GI workup for suspected esophageal dysphagia given h/o post prandial emesis - Dysphagia Advanced solids-Level 3 and Thin Liquids - Should patient exhibit pocketing or high volumes of oral residuals, please make the appropriate downgrade to either mechanical soft or puree solids. - Continue B-12 1000 mcq daily -Continue Vitamine D2 1000 units Q day Renal/Electrolytes: GFR 42 on admission , voiding spontaneously -BMP every other day Heme: HDS, Stable H/H, PMHx of anemia -VS per unit protocol - No indication for transfusion -CBC every other day ID: No leukocytosis, no fever or chills, Concern for UTI at OSH, started on Bactrim -Bactrim DS x 3 days started at OSH for UTI will complete 3 days course end date 02/01 Endocrine: DM2 BG between 128-184 over the last 24 hours, -Continue blood glucose monitoring AC -Continue sliding scale insulin AC MSK: Dens type 2 fx, non op NSGY signed off -[place] collar at all times - PT/OT consulted, recs SNF - Progressive mobility procedure - WBAT - Spines cleared No must wear [place] collar PPX: VTE: Continue SCDs -Warfarin restarted 01/30 - INR every other day - Stress Ulcer PPx: Not indicated. Tubes/Lines/Drains - Maintain PIVs Dispo: - PT/OT recs for SNF - Medically cleared for DC to SNF, Follow up: Follow up with ortho Spine (Dr. Maya) in two weeks Ted Torres APRN, [facility] Trauma Surgery Surgical Critical Care Pager: [phone] *For urgent issues arising after 5PM during the week or on weekends/holiday, please page the trauma resident conditioner tumbler at [phone]. This patient's plan of care was discussed with Trauma Floor attending, Dr. Michela Dias Images from the original note were not included. GENERAL INFORMATION TRAUMA FLOOR - STAFF NOTE Patient Name: Bernardino Guzman Admission Date: 01/28/2024 Patient seen and examined on 01/31/24 INTERVAL HISTORY/EVENTS Background: Bernardino Guzman is a 83 year old female w/ pmh significant for A-fib on warfarin, mild dementia, CAD, CVA, HTN, and DM2 brought in by EMS from an outside hospital ([facility] [place]) as a CAT 2 trauma following an unwitnessed fall w/ a daignosis of a Type 2 Dens Fracture. Per EMS, patient was found on floor after being down several hours. ? Head strike, ? LOC (patient amnestic to the event) + AC/AP (ASA & Plavix) Pt reports having a pacemaker in place but otherwise has no other medical concerns at this time. At baseline, pt uses a walker for ambulation. Per patient's paperwork, during her ED course at [facility], pt did have an episode of emesis for which she got a dose of zofran. INR was therapeutic at 2.85. UA was significant for a UTI and patient was given a dose of IV recephin. CTA Neck was not done prior to transfer. Hospital Course: 01/28/2024: Transfer to [facility] for T2 dens Fx. Admitted to [facility] 01/29/2024 No acute events 01/29 No acute events 01/30 Restarting Warfarin, Tolerating po 24 Hour Events: Upon examination this am she is sitting up in the chair. She denies any pain. She is [place]'AL[place], denies any chest pain, SOB, nausea or vomiting. Tolerating po Labs Reviewed: No leukocytosis, H/H down trending 11.6/35.3 (12.1/36.2) BUN/CR and all lytes are acceptable. Vital Signs reviewed. Afebrile,Normotensive, No tachycardia, Sats appropriate on room air Tmax 37.1 Intake/Output PO: 60 IV 1235 Total:1295 UOP: 4 occurrences not recorded Stool: x 2 Last BM recorded: 01/29 Tubes/Drains -- PHYSICAL EXAM -- Vital Signs: Vital sign ranges over the past 24 hours (retrieved 01/31/2024 at 8:32 AM): Tmax (24 hours): 98.8 F (37.1 C) Pulse Av Min: 54 Max: 98 Systolic (24hrs), Av , Min:104 , Max:131 Diastolic (24hrs), Av, Min:39, Max:73 MAP (mmHg) Av mmHg Min: 59 mmHg Max: 87 mmHg Resp Av.8 Min: 14 Max: 18 SpO2 Av.5 % Min: 97 % Max: 99 % -- PHYSICAL EXAM -- GENERAL: NAD sitting up in bed, with aspen collar. pleasant and conversant NEURO: GCS 15, alert and orient HEENT: Normocephalic CARDIOVASCULAR: RRR, No MRG PULMONARY: CTAB on RA ABDOMINAL: S/ND/NT EXTREMITIES: No edema, FERRER SKIN: [facility] LABORATORY RESULTS (LAST 24 HOURS) CBC/PT/INR 01/31/2024 1:03 AM WBC 10.3 RBC 4.16 Hgb 11.6 Hct 35.3 MCV 85 RDW 15.6 Plt 309 aPTT 39 INR 2.13 Basic Metabolic Panel 01/31/2024 1:03 AM Na 137 K 3.5 Cl 100 CO2 29 Gap 12 Glu 106 BUN 17 Cr 0.99 Ca 8.6 Fingerstick Glucose (last 72 hours) (Last 10 results in the past 72 hours) Glucose 01/31/24 0820 147 01/30/24 2148 164 01/30/24 1639 188 01/30/24 1200 192 01/30/24 0755 130 01/29/24 1154 188 01/29/24 0757 108 01/28/24 2045 147 01/28/24 1530 121 01/28/24 1138 108 IMAGING RESULTS (PERSONALLY REVIEWED) All admit imaging and follow up imaging reviewed. No new imaging ASSESSMENT & PLAN Diagnoses: 1. S/p unwitnessed fall 01/28/2024 2 Type 2 Dens Fx No past medical history on file. Incidental Findings: Reviewed on 01/29/2024 CI. Not yet discussed. 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 Acute pain d/t trauma, - Continue Tylenol 1000 mg q8h scheduled - Continue Oxycodone 2.5 mg q6h prn moderate-severe pain - Continue Melatonin 3 mg Q hs -Continue home med of Celexa 10 mg Q day - Cardiovascular: Hx of HTN, HLD, pacemaker, A-Fib on warfarin -Continue VS per unit protocol -Continue home med Diltiazem -Continue home med Lasix -Continue home med Lisinopril -Continue home med Pravastatin, consider changing to atorvastatin given ICA stenosis -Restarting Warfarin 2 mg today Respiratory: Sats appropriate on oxygen or room air, IS goal is 800 cc - Continue pulmonary toilet, encourage IS - Respiratory 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 Horse [employer] Manager Protocol - Maintain O2 Sats > 92% GI/Diet: Post prandial emesis likely Related to oxycodone administration, No emesis in > 24 hours - Continue regular diet dysphagia Advanced solids level 3 with thin liquids - Continue bowel regimen of senna, miralax, prn dulcolax HEDIS SPECIALIST recs -May consider completion of instrumental assessment via MBS to r/o airway invasion vs close clinical monitoring of pulmonary status - Suggest considering GI workup for suspected esophageal dysphagia given h/o post prandial emesis - Dysphagia Advanced solids-Level 3 and Thin Liquids - Should patient exhibit pocketing or high volumes of oral residuals, please make the appropriate downgrade to either mechanical soft or puree solids. - Continue B-12 1000 mcq daily -Continue Vitamine D2 1000 units Q day Renal/Electrolytes: GFR 42 on admission , voiding spontaneously -BMP daily -Mg and Phos in am Heme: HDS, Stable H/H, PMHx of anemia -VS per unit protocol - No indication for transfusion -CBC in am ID: No leukocytosis, no fever or chills, Concern for UTI at OSH, started on Bactrim -Bactrim DS x 3 days started at OSH for UTI will complete 3 days course end date 02/01 Endocrine: DM2 BG between 147-160 over the last 24 hours, -Continue blood glucose monitoring AC -Continue sliding scale insulin AC MSK: Dens type 2 fx, non op NSGY signed off -[place] collar at all times - PT/OT consulted, recs SNF - Progressive mobility procedure - WBAT - Spines cleared No must wear [place] collar PPX: VTE: Continue SCDs -Warfarin restarted today -Daily INR - Stress Ulcer PPx: Not indicated. Tubes/Lines/Drains - Maintain PIVs Dispo: - PT/OT recs for SNF - Medically cleared for DC to SNF, Follow up: Follow up with ortho Spine (Dr. Maya) in two weeks Ted Torres APRN, [facility] Trauma Surgery Surgical Critical Care Pager: [phone] *For urgent issues arising after 5PM during the week or on weekends/holiday, please page the trauma resident conditioner tumbler at [phone]. This patient's plan of care was discussed with Trauma Floor attending, Dr. Michela Dias 01/30/24 1300 Vital Signs Heart Rate 54 WALLPAPER SCRAPER Brian made aware of above. Case Management CM sent referral to Mary at [facility]. CM will continue to follow. Doris Blue RN, BSN Inpatient Burial Vault Setter Via Secure up[employer] Chat Mon-Fri [phone] Images from the original note were not included. GENERAL INFORMATION TRAUMA FLOOR - STAFF NOTE Patient Name: Bernardino Guzman Admission Date: 01/28/2024 Patient seen and examined on 01/30/24 INTERVAL HISTORY/EVENTS Background: Bernardino Guzman is a 83 year old female w/ pmh significant for A-fib on warfarin, mild dementia, CAD, CVA, HTN, and DM2 brought in by EMS from an outside hospital ([facility]) as a CAT 2 trauma following an unwitnessed fall w/ a daignosis of a Type 2 Dens Fracture. Per EMS, patient was found on floor after being down several hours. ? Head strike, ? LOC (patient amnestic to the event) + AC/AP (ASA & Plavix) Pt reports having a pacemaker in place but otherwise has no other medical concerns at this time. At baseline, pt uses a walker for ambulation. Per patient's paperwork, during her ED course at [facility], pt did have an episode of emesis for which she got a dose of zofran. INR was therapeutic at 2.85. UA was significant for a UTI and patient was given a dose of IV recephin. CTA Neck was not done prior to transfer. Hospital Course: 01/28/2024: Transfer to [facility] for T2 dens Fx. Admitted to [facility] 01/29/2024 No acute events 24 Hour Events: This is my first time meeting this patient who is lying in bed with family at bedside. She is [place], denies any chest pain, SOB, nausea or vomiting. Was nauseated yesterday, tolerating clear liquids today, Labs Reviewed: No leukocytosis, H/H stable, Vital Signs reviewed. Afebrile,Normotensive, No tachycardia, Sats appropriate on Tmax 37.1 Intake/Output PO: 290 IV 45 Total:333 UOP: 300 Stool: x 1 Last BM recorded: 01/29 Tubes/Drains -- PHYSICAL EXAM -- Vital Signs: Vital sign ranges over the past 24 hours (retrieved 01/30/2024 at 9:29 AM): Tmax (24 hours): 98.8 F (37.1 C) Pulse Av.2 Min: 85 Max: 115 Systolic (24hrs), Av , Min:120 , Max:156 Diastolic (24hrs), Av, Min:64, Max:85 MAP (mmHg) Av.3 mmHg Min: 83 mmHg Max: 101 mmHg Resp Av.8 Min: 18 Max: 20 SpO2 Av.3 % Min: 98 % Max: 99 % -- PHYSICAL EXAM -- GENERAL: NAD lying in bed, pleasant and conversant NEURO: GCS 15, alert and orient HEENT: Normocephalic CARDIOVASCULAR: RRR, No MRG PULMONARY: CTAB on RA ABDOMINAL: S/ND/NT EXTREMITIES: No edema, FERRER SKIN: [facility] LABORATORY RESULTS (LAST 24 HOURS) CBC/PT/INR 01/30/2024 12:25 AM WBC 10.5 RBC 4.26 Hgb 12.1 Hct 36.2 MCV 85 RDW 14.8 Plt 317 aPTT 44 INR 2.60 Basic Metabolic Panel 01/30/2024 12:25 AM Na 137 K 3.5 Cl 100 CO2 30 Gap 11 Glu 136 BUN 25 Cr 1.04 Ca 8.7 Fingerstick Glucose (last 72 hours) Glucose 01/30/24 0755 130 01/29/24 1154 188 01/29/24 0757 108 01/28/24 2045 147 01/28/24 1530 121 01/28/24 1138 108 01/28/24 0811 123 IMAGING RESULTS (PERSONALLY REVIEWED) All admit imaging and follow up imaging reviewed. No new imaging ASSESSMENT & PLAN Diagnoses: 1. S/p unwitnessed fall 01/28/2024 2 Type 2 Dens Fx No past medical history on file. Incidental Findings: Reviewed on 01/29/2024 CI. Not yet discussed. 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 Acute pain d/t trauma, - Continue Tylenol 1000 mg q8h scheduled - Continue Oxycodone 2.5 mg q6h prn moderate-severe pain - Continue Melatonin 3 mg Q hs -Continue home med of Celexa 10 mg Q day - Cardiovascular: Hx of HTN, HLD, pacemaker, A-Fib on warfarin -Continue VS per unit protocol -Continue home med Diltiazem -Continue home med Lasix -Continue home med Lisinopril -Continue home med Pravastatin, consider changing to atorvastatin given ICA stenosis -Consider restarting warfarin 01/30 Respiratory: Sats appropriate on oxygen or room air, IS goal is 800 cc - Continue pulmonary toilet, encourage IS - Respiratory 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 Horse Farm Manager Protocol - Maintain O2 Sats > 92% GI/Diet: Post prandial emesis Related to oxy, No emesis in 12 hours - Continue regular diet dysphagia Advanced solids level 3 with thin liquids - Continue bowel regimen of senna, miralax, prn dulcolax HEDIS SPECIALIST recs -May consider completion of instrumental assessment via MBS to r/o airway invasion vs close clinical monitoring of pulmonary status - Suggest considering GI workup for suspected esophageal dysphagia given h/o post prandial emesis - Dysphagia Advanced solids-Level 3 and Thin Liquids - Should patient exhibit pocketing or high volumes of oral residuals, please make the appropriate downgrade to either mechanical soft or puree solids. - Continue B-12 1000 mcq daily -Continue Vitamine D2 1000 units Q day Renal/Electrolytes: GFR 42 on admission , voiding spontaneously -IV fluids @ 50/hr can likely discontinue in am if taking po well -BMP daily -Mg and Phos in am Heme: HDS, Stable H/H, PMHx of anemia -VS per unit protocol - No indication for transfusion -CBC in am ID: No leukocytosis, no fever or chills, Concern for UTI at OSH, started on Bactrim -Bactrim DS x 3 days started at OSH for UTI will complete 3 days course end date 02/01 Endocrine: DM2 BG between 130 -192 over the last 24 hours, -Continue blood glucose monitoring AC -Continue sliding scale insulin AC MSK: Dens type 2 fx, non op NSGY signed off -[place] collar at all times - PT/OT consulted, recs SNF - Progressive mobility procedure - WBAT - Spines cleared No must wear [place] collar PPX: VTE: Continue SCDs -Lovenox 27 mg BID. Anti Xa due on 01/30 @ 0100 . -Once within protocol continue at current dose per protocol and continue weekly anti Xa levels every . - Stress Ulcer PPx: Not indicated. Tubes/Lines/Drains - Maintain PIVs Dispo: - PT/OT recs for SNF - Remain on Trauma RNF tolerating po Anticipate medical clearance in 1-2 days Follow up: Follow up with ortho Spine (Dr. Maya) in two weeks Ted Torres APRN, [facility] Trauma Surgery Surgical Critical Care Pager: [phone] *For urgent issues arising after 5PM during the week or on weekends/holiday, please page the trauma resident conditioner tumbler at [phone]. This patient's plan of care was discussed with Trauma Floor attending, Dr. Tyree Muñoz Images from the original note were not included. GERIATRIC PROGRESS NOTE Patient Name: Bernardino Guzman Location: [place] [address] Attending: Tyree Muñoz MD Cc; nauseated HIPAA: Verbal permission granted from patient to discuss case, including protected health information, in front of family dtr and granddtr in room at the time of the evaluation. Hr Generalist: Not needed - patient preferred language is [place] HPI: 83 year old year old female with a history of atrial fib on warfarin, CAD, CVA , HTN type 2 DM, ( a1 c? ) mild to moderate dementia, anxiety with hx of falls, recently with head strike 3 wk prior to this admission, who was found down at home unwitnessed fall and taken to [place], unable to recall the event, became nauseated, and INR 2.85, UA suggestive of UTI, given rocephen x 1, and CTN was not done prior to transfer to ED was category 2 trauma, f presenting to ED on 01/28/2024 for dx of type 2 Dens fracture. 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 Depression, vs due to dementia ; family agrees with celexa - debility loss of muscle mass and decine in function family in agreement with snf - ICA stenosis bilat and rt vertebral artery stenosis , discussed with family, management per trauma team - 01/28 after eating well, began vomiting ,(also had an oxycodone then ) ? If due to that or bactrim changed to clear liquid HEDIS SPECIALIST consulted - started on celexa 10mg for depression anxiety delirium /dementia - GOC discussion changed to DNRCCA DNI , no feeding tube, goal improve nutrition and strength at rehab - upright films c spine completed and eval by Dr Maya , follow up in 2 wk, ASpen collar at all times, neurosurg signed off - director field services did not see pt, ; recommends Boost GC max Tid 01/30/24 seen by HEDIS SPECIALIST ; suspects esophageal dysphagia ? Oropharyngeal dyspahgia component , failied YSP , Recommendations ; Patient appears to be at a low-moderate risk for dysphagia given these findings paired with multiple dysphagia risk factors. Given diminished pulmonary clearance, diminished immune response, and diminished bacteriological contents patient risk for aspiration related pulmonary complication is currently perceived to be low (please see chart above for impacting factors). Given these consideration would suggest initiation of Dysphagia Diet Level 3-Mechanically Advanced/thin consistency diet with set up assist and intermittent supervision. An instrumental swallow via MBS may be beneficial in r/o airway invasion with PO intake given heightened risk with presence of C5-6 osteophytes and subtle s/sx of oropharyngeal incoordination. If this does not align with patient GOC, then would suggest ongoing clinical monitoring of diet tolerance and pulmonary health for early detection of potential aspiration. Would suggest considering GI workup for suspected esophageal phase dysphagia given h/o prandial emesis should patient/family wish to further assess this issue. Family at bedside, states pt wanted to stay in bed Discussed that pt will be able to eat better if up in chair for all meals , has timed toileting and engaged with family during day Discussed ways to approach pt, ie say lets get up to the chair or go for a walk Dtr concerned about vomiting , states pt has not been eating for such a long time that she is not used to food Pt does not voice concerns has paucity of words GERIATRIC ROS: Cognitive Status: mild dementia mild hypoactive delirium resolving Mood: pleasant cooperative Sleep: ok Appetite: poor sipping gingerale Pain: none Mobility: walked with assistance of one to bathroom and toileted , did hygiene herself Bowel Function: slightly loose bm today Bladder Function: continent with timed toileting dark Restraint use in last 24 hr: yes rollbelt , chair saba Antipsychotic/opioid/benzo in last 24 hr: Celexa 10mg /d Oxycodone 2.5mg prn got one dose late 01/28 Melatonin 3mg/d aricept 5mgat night Pt on bactrim for UTIstarted late 01/28 EKG QTc: 474 Current Medications: Current Facility-Administered Medications: lactated ringers iv infusion, , Intravenous, Continuous, Elder Rodgers PA-C, Last Rate: 50 mL/hr at 01/29/24 180, New Bag at 01/29/241807 sulfamethoxazole-trimethoprim 800-160 MG (BACTRIM DS) tablet, 1 Tablet, Oral, 2x Daily, Elder Rodgers PA-C, 1 Tablet at 01/29/242125 enoxaparin (LOVENOX) 100 mg/mL custom injection 27 mg, 0.5 mg/kg (Mathews), Subcutaneous, 2x Daily, Elder Rodgers PA-C, 27 mg at 01/29/242125 donepezil (ARICEPT) tablet, 5 mg, Oral, At Bedtime, Elder Rodgers PA-C, 5 mg at 01/29/242125 [START ON 02/05/2024] donepezil (ARICEPT) tablet, 2.5 mg, Oral, At Bedtime, Elder Rodgers PA-C oxyCODONE immediate release tablet, 2.5 mg, Oral, Q4H PRN, Elder Rodgers PA-C, 2.5 mg at 01/29/24 193 citalopram (CeleXA) tablet, 10 mg, Oral, Daily, Christin Camara APRN-CNP, 10 mg at 01/29/24 1248 Normal consistency supplement, , Oral, 3x Daily with Meals, Christin Camara APRN-CNP, Given at 01/29/24 1200 melatonin tablet, 3 mg, Oral, At Bedtime, Christin Camara APRN-CNP, 3 mg at 01/29/242125 acetaminophen (TYLENOL) tablet, 1,000 mg, Oral, Q6H PRN, Nic Kennedy MD lisinopril (ZESTRIL) tablet, 2.5 mg, Oral, Daily, Astrid Conrad DO, 2.5 mg at 01/29/24 0858 diltiazem (CARDIZEM CD) 24 hour capsule, 120 mg, Oral, At Bedtime, Astrid Conrad DO, 120 mg at 01/29/24 2126 furosemide (LASIX) tablet, 20 mg, Oral, Q48H, Astrid Conrad DO, 20 mg at 01/28/24 0900 cholecalciferol (VITAMIN D3) tablet, 25 mcg, Oral, Daily, Astrid Conrad DO, 1,000 Units at 01/29/24 0858 pravastatin (PRAVACHOL) tablet, 80 mg, Oral, Daily, Astrid Conrad DO, 80 mg at 01/29/24 0858 docusate sodium (COLACE) capsule, 100 mg, Oral, 2x Daily, Nic Kennedy MD, 100 mg at 01/29/24 0858 senna (SENOKOT) tablet, 8.6 mg, Oral, At Bedtime, Nic Kennedy MD bisacodyl (DULCOLAX) 5 MG enteric coated tablet, 10 mg, Oral, Daily PRN, Nic Kennedy MD Physical Examination: BP 120/64 (BP Location: left arm) Pulse 85 Temp 97.9 F (36.6 C) (Oral) Resp 18 Ht 5' 4 (1.626 m) Wt 105 lb (47.6 kg) SpO2 99% BMI 18.02 kg/m OBJECTIVE: BP 120/64 (BP Location: left arm) Pulse 85 Temp 97.9 F (36.6 C) (Oral) Resp 18 Ht 5' 4 (1.626 m) Wt 105 lb (47.6 kg) SpO2 99% BMI 18.02 kg/m Date/Time Temp Pulse Resp Arterial BP MAP BP MAP (mmHg) SpO2 Weight O2 Device O2 Flow Rate (l/min) FiO2 (%) [facility] 01/30/24 1300 97.7 F (36.5 C) 54 17 -- -- 116/73 87 mmHg 97 % -- Room air -- -- 01/30/24 0654 97.9 F (36.6 C) 85 18 -- -- 120/64 83 mmHg 99 % -- Room air -- -- SP 01/29/246 -- -- -- -- -- -- -- -- -- Room air -- -- AO 01/29/247 97.8 F (36.6 C) 105 20 -- -- 156/82 101 mmHg 98 % -- Room air -- -- BH 01/29/24 1700 -- 106 18 -- -- 151/85 99 mmHg 98 % -- Room air -- -- MO 01/29/24 1333 98.8 F (37.1 C) 115 18 -- -- 122/76 90 mmHg 98 % -- Room air -- -- MO 01/29/24 0648 98.2 F (36.8 C) 77 17 -- -- 127/44 68 mmHg 98 % -- Room air -- -- SP Wt Readings from Last 10 Encounters: 01/28/24 105 lb (47.6 kg) General; pale , , frail cachectic female lying in bed, room dark at lunch time no distress, alert and oriented to person dtr granddtr, hospital yr and reason for admission . Face without masked facies. Cognition follows commands , poor recall re; instructions, carry over, speech clear, answers question appropriately with a few words. Does not initiate conversation often , voice soft Mood ; prefers to stay in bed needs coaxing per family Attention improved since yesterday , UB CAM + HEENT; anicteric sclera, EOMI, face symmetrical, oral mucosa moist lips dry neck not examined, wearing aspen collar, duoderm placed under brace anterior and posterior to protect the skin from pressure Thorax; clear no rales wheezes or rhonchi, kyphotic Cor; RRR nl s1, [id number] murmur abd ; round soft nontender normoactive bowel sounds all quadrants Rectal continent of bowel and bladder with timed toileting , large slightly loose stool today Periph no swelling bilat Gait stooped posture , needs cue for hand placement on the walker , managing walker in bathroom safely , needed CGA , impulsive slight shuffling gait , quickly fatigued Neg cogwheel rigidity bradykinesia , tremor Abbott diagnostic studies personally reviewed: CBC 01/30/2024 01/29/2024 01/28/2024 12:25 AM 3:43 AM 3:07 AM WBC 10.5 11.7 17.0 RBC 4.26 4.74 4.77 Hgb 12.1 13.4 13.3 Hct 36.2 40.5 40.4 MCV 85 86 85 RDW 14.8 15.6 15.5 Plt 317 344 368 BMP (last 1 year, up to 8 values) 01/30/2024 01/29/2024 01/28/2024 12:25 AM 3:43 AM 3:19 AM Na 137 141 138 K 3.5 3.7 4.7 Cl 100 102 100 CO2 30 28 27 Gap 11 15 16 Glu 136 109 190 BUN 25 15 19 Cr 1.04 0.95 1.26 Ca 8.7 8.7 8.8 eGFR 53 59 42 LFT's (last 3 years, up to 8 values) No lab values to display. TSH 01/30/2024 01/29/2024 12:25 AM 11:31 AM TSH 1.148 1.160 01/29/2024 11:31 AM Syphilis Total (IgG/IgM) Non-Reactive Vitamin B12 (pg/mL) Date Value 01/30/2024 228 Creatinine clearance from [facility]: 30 ml/min based on creatinine of 1.04 on 01/30/2024 using actual weight 47.6 kg (IBW 54.7 kg ignored) Estimated GFR: 53 on 01/30/2024 Urine Culture (last 1 year) No lab values to display. I personally reviewed the imaging and agree with the findings. Unable to see the CTH done at outside hospital XR C-SPINE MORE THAN 5 VIEWS EXAMINATION: XR C-SPINE MORE THAN 5 VIEWS 01/29/2024 02:24 PM CLINICAL HISTORY: Type 2 Dens fracture ASSOCIATED DIAGNOSIS: ORDERING PROVIDER: ASTRID CONRAD TECHNOLOGISTS NOTE: Best possible standing images COMPARISON: CTA NECK W/ 01/28/2024, 3:28 AM FINDINGS: On the lateral view the C-spine is visible to the C5 level. The known odontoid fracture is questionably visible on the lateral view. There is loss of lordosis lower cervical spine and disc space narrowing and osteophytes at C5-6. The prevertebral soft tissues have normal contours. The bones are osteopenic. The left C3-4 neuroforamen is narrowed by bony encroachment. An implanted cardiac device is partially visualized. The aorta has wall calcifications. The lung apices are hyperinflated. IMPRESSION: The known odontoid fracture demonstrated on CT scan is questionably visible. MACRO: None FINDINGS:c spine 01/29/24 On the lateral view the C-spine is visible to the C5 level. The known odontoid fracture is questionably visible on the lateral view. There is loss of lordosis lower cervical spine and disc space narrowing and osteophytes at C5-6. The prevertebral soft tissues have normal contours. The bones are osteopenic. The left C3-4 neuroforamen is narrowed by bony encroachment. An implanted cardiac device is partially visualized. The aorta has wall calcifications. The lung apices are hyperinflated. IMPRESSION: The known odontoid fracture demonstrated on CT scan is questionably visible. 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, possibly Alzheimers without behavioral disturbance, plus vascular as hx of lacunar infarct, vs primary progressive aphasia due to limited verbal output, # severe stenosis of proximal ICAs and severe stenosis of rt vertebral artery # acute delirium due to trauma and uti and hospitalization sleep deprivation # B12 deficiency B12 is 228 Syphilis in NR WBC improved from 17-> 10 Sodium stable 137 Creat stable 1.04 - improved delirium - continue delirium precautions , melatonin - up to chair all meals - ambulate to bathroom timed toileting -antibx per trauma for UTI now on bactrim -ordered b12 1000mcg I'm x 1 today followed by b12 tab 1000mcg daily starting tomorrow # pain due to odontoid fracture Recommend tylenol 650 q 8 hour ordered Recommend use oxycodone sparingly # poor po intake # moderate protein calorie malnutrition suspected , ( at least) #19 lb wt loss # suspect esophageal dysphagia and suspect mild oropharyngeal dysphagia # nausea /vomiting - appreciate HEDIS SPECIALIST note and agree with her recommendations - pt did well with boost and liked it, but is on clear liquids , hopefully will be chen to advamce - unclear eitiology of nausea and vomiting, ? Esophageal motility issue vs opiod vs aricept vs bactrim Will stop aricept. Limit use of opiods - continue wkly wt # adjustment disorder with depressed mood anxiety in setting of dementia - continue celexa 10mg /d stared 01/28 and increase to 20mg /d if she tolerates this and QTc ok - give In am. To help with mood anxiety deliruim due to dementia - QTc 474 yesterday stable, Medical management - Recommend tylenol 650 q 8 hour ordered - Recommend use oxycodone sparingly - recommend discontinue all aricept (done )pt vomiting and risks out wt benefits - continue to monitor renal function on bactrim , need to increase po fluids - ordered b12 1000mcg I'm x 1 today followed by b12 tab 1000mcg daily starting tomorrow Code status is DNRCCA DNI HCPGEOVANI franklin [phone] 1st alternate is Tanisha Rojas Met with dtr and granddtr answered questions Discussed delirium superimposed on dementia and depresson Geriatric Medicine will continue to follow I have personally reviewed the [employer] consultant notes, nursing notes, therapy and allied healthcare provider notes, labarotary tests and imaging/radiological tests. I have obtained pertinent history from the patient and/or surrogate including via chart review. I have independantly interpreted the tests performed and discussed management with other consultants/providers involved in the treatment of this patient. Christin Camara, MSN, WALLPAPER SCRAPER, WESTERN PHILOSOPHY PROFESSOR Adult/Geriatric Nurse Practitioner Department of Geriatric Medicine [facility] unit [place] [address] Geriatric pager: [phone] Personal pager: [phone] Electronically signed by Christin Camara, WALLPAPER SCRAPER-WESTERN PHILOSOPHY PROFESSOR at 01/30/2024 2:53 PM EDT Pharmacy Renal Dosing Service Name: Bernardino Guzman Age: [age] year old Gender: female Ht: 5' 4 Wt: 47.6 kg Patient is currently prescribed the following renally monitored Medication(s): Renally Adjusted Meds (720h ago, onward) Ordered Stop 01/29/24 1457 enoxaparin (LOVENOX) 100 mg/mL custom injection 27 mg 0.5 mg/kg (Mathews), Subcutaneous, 2 TIMES DAILY Question: Reason/Indication for Therapy Answer: Venous thromboembolism prophylaxis -- Relevant objective data reviewed: Serum creatinine: 0.95 mg/dL 01/29/24 0343 Estimated creatinine clearance: 33.13 mL/min Assessment and Recommendation: The medication required adjustment for renal function at the time of initial order verification. The original medication order Bactrim 1 SS tablet two times daily has been updated to Bactrim 1 DS tablet two times daily. Medication therapy has been updated per consult agreement. Jer Victoria PharmD Department of Pharmacy Services Images from the original note were not included. GENERAL INFORMATION TRAUMA FLOOR - STAFF NOTE Patient Name: Bernardino Guzman Admission Date: 01/28/2024 Patient seen and examined on 01/29/24 INTERVAL HISTORY/EVENTS Background: Bernardino Guzman is a 83 year old female with a PMHx of w/ pmh significant for a fib on warfarin, pacemaker, mild dementia, CAD, CVA, HTN, and DM2 brought in by EMS from an outside hospital ([facility]) following an unwitnessed fall w/ a daignosis of a Type 2 Dens Fracture. Per EMS, patient was found on floor after being down several hours. Pt at bedside is A&O x 3. Per patient's paperwork, during her ED course at [facility], pt did have an episode of emesis for which she got a dose of zofran. INR was therapeutic at 2.85. UA was significant for a UTI and patient was given a dose of IV recephin. CTA Neck was not done prior to transfer. Hospital Course: 01/28/2024: [facility] [facility] for T2 dens fx. Admitted to [facility]. HEDIS SPECIALIST/PT/OT recs provided. 24 Hour Events: No acute overnight events. Patient doing well this morning. Denies pain. She does not care much for breakfast but is eating well. No IV access despite numerous attempts by nursing staff and IV team. Patient with post-prandial emesis this afternoon. Per family, this has occurred in the past/prior to trauma. No new O2 requirements. Vitals: intermittently tachycardic to low 110s. Otherwise VSS on RA. Labs reviewed: Down trending leukocytosis 11.7(17). INR 2.78. BMP per baseline. Syphilis non-reactive. UOP: 700cc, x3 occurances BM: x0 (admit 01/27) -- PHYSICAL EXAM -- Vital Signs: Vital sign ranges over the past 24 hours (retrieved 01/29/2024 at 2:25 PM): Tmax (24 hours): 98.8 F (37.1 C) Pulse Av.7 Min: 77 Max: 116 Systolic (24hrs), Av , Min:122 , Max:143 Diastolic (24hrs), Av, Min:44, Max:76 MAP (mmHg) Av.3 mmHg Min: 68 mmHg Max: 90 mmHg Resp Av.7 Min: 17 Max: 18 SpO2 Av.7 % Min: 98 % Max: 100 % GENERAL: Sitting up in chair. Well-appearing. Pleasant. HEENT: NC, AT. CARDIOVASCULAR: RRR. +2 radial pulses bilaterally PULMONARY: CT b/L. Non labored breathing on RA. ABDOMINAL: Soft. Non-tender, non-distended. No suprapubic tenderness. EXTREMITIES: FERRER spontaneously. NEUROLOGICAL: Alert and oriented to hospital, year, and birthday. No motor or sensory deficits. SKIN: UE ecchymoses of varying sizes and healing stages. LABORATORY RESULTS (LAST 24 HOURS) CBC/PT/INR 01/29/2024 3:43 AM WBC 11.7 RBC 4.74 Hgb 13.4 Hct 40.5 MCV 86 RDW 15.6 Plt 344 aPTT 39 INR 2.78 Basic Metabolic Panel 01/29/2024 3:43 AM Na 141 K 3.7 Cl 102 CO2 28 Gap 15 Glu 109 BUN 15 Cr 0.95 Ca 8.7 Fingerstick Glucose (last 72 hours) Glucose 01/29/24 1154 188 01/29/24 0757 108 01/28/24 2045 147 01/28/24 1530 121 01/28/24 1138 108 01/28/24 0811 123 IMAGING RESULTS (PERSONALLY REVIEWED) All admit imaging and follow up imaging reviewed. Upright c-spine x-rays pending ASSESSMENT & PLAN Diagnoses: S/p FFS 01/28/2024 Type 2 odontoid fx Acute pain due to trauma UTI (present on admission) PMHx: a fib on warfarin, pacemaker, mild dementia, CAD, CVA, HTN, and DM2 Incidental Findings: Reviewed on 01/29/2024. Not yet discussed. Advanced atherosclerotic disease resulting in severe stenosis ( >70%) of the proximal ICAs and severe stenosis at the right vertebral artery origin Plan: Neurological: Acute pain due to trauma - Continue Tylenol 1g q6 hrs - Continue Oxycodone 2.5 q4hrs for moderate/severe pain - Geriatrics following: - Syphilis negative. TSH and B12 labs pending - recommend start celexa 10mg po daily and in 3-4 days if QTc ok - recommend discontinue CTX - continue melatonin 3mg/d - recommend high dose statin given atherosclerotic disease, CVA hx and ICA Stenosis , atorastatin or crestor have lower side effect profile - avoid resumption of ozempic /trulicity - decrease aricept to 2.5mg in a wk , discontinue in 2 wk (wean ordered) Cardiovascular: Tachycardic to mid 110s. No hypertension. - Obtain VS per unit protocol - Obtain EKG (ordered x2, not obtained) - Continue home Diltiazem, Lasix, Lisinopril and Pravastatin. Consider changing to atorvastatin given ICA stenosis. Respiratory: Saturating appropriately on RA. - Respiratory medical records coordinator protocol - Encourage incentive spirometry - IS goal: 810cc GI/Diet: HEDIS SPECIALIST consulted given C-spine fx and c-collar. Post-prandial emesis. - Change to NPO and re-engage HEDIS SPECIALIST 01/29 - Consider other causes of dysphagia/post-prandial emesis - BR: Dulcolax and Senna. Prn MoM Renal/Electrolytes: GFR 42 on admission. - Obtain BMP, Phos, Mg daily Heme: H/H stable. HDS. - Obtain CBC daily - No indication for transfusion - Transfuse for Hgb <7 ID: Afebrile, mild down-trending leukocytosis. UTI on admission. - No abx indication at this time Endocrine:Hx DMT2. - Glucose checks prn MSK: C2 odontoid fx. - NSGY following: - [place] collar at all times - please have patient follow up in clinic in two weeks with Dr. Maya - Neurosurgery signing off at this time - PT/OT consulted. Rec SNF. Start pre-cert. - Progressive mobility protocol - Spines: Maintain c-collar - Weight bearing: WBAT - Activity: OOBAT Tubes, Lines, and Drains: - Maintain PIVs until discharge - No indication for flanagan Prophylaxis: - DVT ppx: SCDs and Lovenox 27mg BID. Anti-Xa 01/30 0100. - GI ppx: not indicated Dispo: Remain on RNF while evaluating post-prandial emesis/dysphagia. SNF going anticipate medical clearance in 1-2 days. Follow up: Follow up with Neurosurgery (Dr. Maya) in 2 weeks Follow up with a Vascular Surgeon and your PCP regarding your incidental findings No trauma follow up indicated Elder Rodgers PA-C Trauma Surgery Pager: [phone] *For urgent issues arising after 5PM during the week or on weekends/holiday, please page the trauma resident conditioner tumbler at [phone]. This patient's plan of care was discussed with Trauma Floor attending, Dr. Tyree Muñoz MD. Images from the original note were not included. GERIATRIC PROGRESS NOTE Patient Name: Bernardino Guzman Location: [place] [address] Attending: Tyree Muñoz MD Cc; I am ok HIPAA: Verbal permission granted from patient to discuss case, including protected health information, in front of family dtr son , dtr in law in room at the time of the evaluation. Hr Generalist: Not needed - patient preferred language is [place] HPI: 83 year old year old female with a history of atrial fib on warfarin, CAD, CVA , HTN type 2 DM, ( a1 c? ) mild to moderate dementia, anxiety with hx of falls, recently with head strike 3 wk prior to this admission, who was found down at home unwitnessed fall and taken to [facility], unable to recall the event, became nauseated, and INR 2.85, UA suggestive of UTI, given rocephen x 1, and CTN was not done prior to transfer to ED was category 2 trauma, f presenting to ED on 01/28/2024 for dx of type 2 Dens fracture. 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 Depression, vs due to dementia ; family agrees with celexa - debility loss of muscle mass and decine in function family in agreement with snf Ros pt unreliable historian due to dementia and probable hypoactive delirium GERIATRIC ROS: Cognitive Status: Alert, fluctuating level of consciousness, mild dementia, and Oriented x to person family hospital month yr Mood: keeps eyes closed lying in bed, needed much coaxing to get up Sleep: ok during night Appetite: poor drank boost pureed , thin Pain: none Mobility: min assist transfer to chair Bowel Function: incontinent of stool Bladder Function: incontinent Restraint use in last 24 hr: none Antipsychotic/opioid/benzo in last 24 hr: Oxocodone 2.5mg to 5mg q 4hour prn Atarax prn 25 at bed Seroqeul 25mg did not receive Aricept 5 mg/d Melatonin 3mg/d EKG 01/28 QTc: no EKG done Current Medications: Current Facility-Administered Medications: cefTRIAXone (ROCEPHIN) 1,000 mg in dextrose 50 mL ivpb, 1,000 mg, Intravenous, Q24H Antibiotic, Elder Rodgers PA-C Normal consistency supplement, , Oral, 3x Daily with Meals, Christin Camara APRN-CNP, Given at 01/29/24 0800 melatonin tablet, 3 mg, Oral, At Bedtime, Christin Camara APRN-CNP acetaminophen (TYLENOL) tablet, 1,000 mg, Oral, Q6H PRN, Nic Kennedy MD oxyCODONE immediate release tablet, 2.5 mg, Oral, Q4H PRN, Nic Kennedy MD oxyCODONE immediate release tablet, 5 mg, Oral, Q4H PRN, Nic Kennedy MD lisinopril (ZESTRIL) tablet, 2.5 mg, Oral, Daily, Astrid Conrad DO, 2.5 mg at 01/29/24 0858 diltiazem (CARDIZEM CD) 24 hour capsule, 120 mg, Oral, At Bedtime, Astrid Conrad, DO, 120 mg at 01/28/24 2259 furosemide (LASIX) tablet, 20 mg, Oral, Q48H, Astrid Conrad, DO, 20 mg at 01/28/24 0900 donepezil (ARICEPT) tablet, 5 mg, Oral, At Bedtime, Astrid Conrad, DO, 5 mg at 01/28/24 2259 hydrOXYzine (ATARAX) tablet, 25 mg, Oral, At Bedtime, Astrid Conard, DO cholecalciferol (VITAMIN D3) tablet, 25 mcg, Oral, Daily, Astrid Conrad, , 1,000 Units at 01/29/24 08 pravastatin (PRAVACHOL) tablet, 80 mg, Oral, Daily, Astrid Conrad, DO, 80 mg at 01/29/24 0858 QUEtiapine (SEROQUEL) tablet, 25 mg, Oral, At Bedtime, Astrid Conrad DO docusate sodium (COLACE) capsule, 100 mg, Oral, 2x Daily, Nic Kennedy MD, 100 mg at 01/29/24 0858 senna (SENOKOT) tablet, 8.6 mg, Oral, At Bedtime, Nic Kennedy MD bisacodyl (DULCOLAX) 5 MG enteric coated tablet, 10 mg, Oral, Daily PRN, Nic Kennedy MD Physical Examination: BP 127/44 (BP Location: right arm) Pulse 77 Temp 98.2 F (36.8 C) (Oral) Resp 17 Ht 5' 4 (1.626 m) Wt 105 lb (47.6 kg) SpO2 98% BMI 18.02 kg/m OBJECTIVE: BP 127/44 (BP Location: right arm) Pulse 77 Temp 98.2 F (36.8 C) (Oral) Resp 17 Ht 5' 4 (1.626 m) Wt 105 lb (47.6 kg) SpO2 98% BMI 18.02 kg/m Date/Time Temp Pulse Resp Arterial BP MAP BP MAP (mmHg) SpO2 Weight O2 Device O2 Flow Rate (l/min) FiO2 (%) Who 01/29/24 0648 98.2 F (36.8 C) 77 17 -- -- 127/44 68 mmHg 98 % -- Room air -- -- SP 01/28/24 2046 98.6 F (37 C) 116 18 -- -- 143/54 80 mmHg 100 % -- Room air -- -- KW 01/28/24 1331 99.1 F (37.3 C) 71 18 -- -- 116/49 67 mmHg 98 % -- Room air -- -- MO 01/28/24 0650 99 F (37.2 C) 92 18 -- -- 131/61 81 mmHg 98 % -- Room air -- -- SW Wt Readings from Last 10 Encounters: 01/28/24 105 lb (47.6 kg) General; frail pale chronically ill appearing elderly female lying in bed , wearing aspen collar no distress, alert and oriented [facility] family month yr, not reason for admission not date day events of yesterday Attention ; UB CAM + CAM + in all 4 domains; 1, acute onset and fluctuating course, 2. Inattention 3. Disorganized thinking, 4. Altered level of consiousness. Pt did not wish to participate in the conversation, declines to get up , eat but does when assisted Cognition ; follows commands paucity of speech Mood smiles when she sees family otherwise lying in bed, asking to go back to bed often, intermittently good eye contact HEENT; anicteric sclera, EOMI, face symmetrical, oral moist no thrush, neck not examined, pt in ASPEN collar, Thorax; clear no rales wheezes or rhonchi no cva tenderness, +kyphotic Cor; RRR nl s1, s2 no s3 s4 no murmur, click rub abd ; flalt soft nontender normoactive bowel sounds all quadrants Periph; no swelling bilat UE , LE Integ ; echymosis bilat UE Motor Tone: normal Drift: Spontaneous abnormal movements: none neg tremor or cogwheel rigidity gait ; needs cga to sit on edge of bed and to stand ,flexed stooped posture unsteady mod assist of one to take 2-3 steps to chair and sit, needed cues and shuffled feet on floor RIGHT LEFT Deltoids 5 5 Biceps 5 5 Triceps 5 5 Hand 5 5 Hip flexion 4 4 Knee extension 4 4 Knee flexion Dorsiflexion 5 5 Plantarflexion 5 5 Mod Temporal wasting, thenar and hypothenar wasting,severe loss of adipose tissue, severe muscle atrophy of quadriceps, prominent ribs, sternum, clavicles, trochanters. Abbott diagnostic studies personally reviewed: CBC 01/29/2024 01/28/2024 3:43 AM 3:07 AM WBC 11.7 17.0 RBC 4.74 4.77 Hgb 13.4 13.3 Hct 40.5 40.4 MCV 86 85 RDW 15.6 15.5 Plt 344 368 BMP (last 1 year, up to 8 values) 01/29/2024 01/28/2024 3:43 AM 3:19 AM Na 141 138 K 3.7 4.7 Cl 102 100 CO2 28 27 Gap 15 16 Glu 109 190 BUN 15 19 Cr 0.95 1.26 Ca 8.7 8.8 eGFR 59 42 LFT's (last 3 years, up to 8 values) No lab values to display. TSH No lab values to display. Creatinine clearance from [facility]: 33 ml/min based on creatinine of 0.95 on 01/29/2024 using actual weight 47.6 kg (IBW 54.7 kg ignored) Estimated GFR: 59 on 01/29/2024 01/28/2024 3:07 AM 01/28/2024 3:19 AM 01/28/2024 3:21 AM 01/29/2024 3:43 AM Protime 31.1 (H) INR 2.78 (H) HIV Ag-Ab Screen Non-Reactive Ethanol <10 Lactate 1.4 HS Troponin I 18 (H) Legend: (H) High No results found for: B12 , VITD25 CTA NECK W/ EXAMINATION: CTA NECK WITH IV CONTRAST 01/28/2024 03:27 AM CLINICAL HISTORY: Trauma; fall w/ known c2 fx, eval for bcui ASSOCIATED DIAGNOSIS: Trauma fall w/ known c2 fx, eval for bcui ORDERING PROVIDER: LINDA SHOOK TECHNOLOGISTS NOTE: COMPARISON: None TECHNIQUE: CT angiogram of the neck with contrast. Thin isotropic axial imaging was obtained from the aortic arch to the skull base during rapid IV contrast administration for evaluation of the vessels. Multiplanar and 3D maximum intensity projection reformulations were created from the raw CT data which were interpreted in conjunction with the axial images to render the findings listed below. Before infusion of intravenous contrast, radiology personnel investigated the possibility of an allergic history and any history of reaction to iodinated contrast material. Contrast Protocol: Omnipaque 350 [>or =75lb] 75ml [<75 lb] 1 ml per 1 lb. Where applicable, evaluation of ICA stenosis was performed using the site of greatest stenosis compared to the diameter of the ICA distal to the stenosis at the point where the ICA lo become parallel. INTRA-PROCEDURE MEDS: iohexol (OMNIPAQUE) 350 MG/ML injection 75 mL Route: Intravenous Push FINDINGS: Aortic Arch: Aortic atherosclerotic calcification with this extends into the origins of the branch vessels. Moderate atherosclerotic stenosis of the proximal bilateral subclavian arteries. Carotid Arteries Right Common Carotid: Mild to moderate scattered atherosclerotic stenoses. Right Internal Carotid: Atherosclerotic plaque in the bulb and proximal ICA produces severe (>70%) ICA stenosis. Left Common Carotid: Mild scattered atherosclerotic stenoses. Left Internal Carotid: Atherosclerotic plaque in the bulb and proximal ICA produces severe (>70%) ICA stenosis. Vertebral Arteries: Moderate atherosclerotic stenosis of the proximal left vertebral artery. Severe stenosis at the origin of the right vertebral artery. Bilateral proximal intradural vertebral arteries demonstrate moderate atherosclerotic stenosis. Other: Minimally displaced type II odontoid fracture and comminuted fracture of the basion. Associated small volume epidural hematoma extending from the craniocervical junction to C3-C4 and causes abutment of the anterior cord at the cervicomedullary junction. No evidence of a soft tissue mass or lymphadenopathy in the neck or superior mediastinum. 2-3 mm nodules seen in the bilateral peripheral lung apices. IMPRESSION: No evidence of significant cerebrovascular injury. Advanced atherosclerotic disease resulting in severe stenosis ( >70%) of the proximal ICAs and severe stenosis at the right vertebral artery origin. MACRO: None ////////////////////////////////// ///////////// ADVANCED CARE PLANNING RECORD OF DISCUSSION START TIME10:12am STOP TIME 10:31am Met in hospital room initially then moved to area at end of beaver as pt sleeping Pt unable to participate with decisions due to dementia delirium paucity of speech Present for meeting were; ADVANCED CARE PLANNING DECISION MAKER socorro dave [phone] HCPOA available in person Tanisha rojas 1st alternate available on phone Son Luciano Guzman Dtr in law desire Myself I DISCUSSED ADVANCED CARE PLANNING ISSUES WITH THE HEALTH CARE DECISION MAKER NOTED ABOVE LIVING WILL (YES) POWER OF DRIP BOX TENDER FOR HEALTH CARE (YES) ADVANCE DIRECTIVE FOR LIFE THREATENING EVENT(YES) DISEASE (ACP DISEASE) severe malnutrition Adult failure to thrive PROGNOSIS (ACP DISEASE) fair to poor I reviewed and discussed the current condition and prognosis of (the pt) incluiding dementia, atrial fib, bilateral ICA stenosis and rt vertebral artery stenosis, recent DENS fx , hx of falls, progressive cognitive and functional decline in setting of dementia that is likley Alzheimers and vascular with the family listed above, the responsible parties . The responsible partys understanding of the patient's current condition and prognosis is good . The patient's personal values and priorities re; issues of longevity, function and comfort care/relief of pain and suffering as related by the patient or the responsible alliance party were discussed and reviewed.The family and HCPOA prioritized these values as they relate to the medical care goals. As; #1 priority attempt to improve her strength with snf stay and therapy #2 priority attempt to improve her nutrtiion and wt with food, supplements, discontinuation ozempic and taper off of aricept, # 3 decline feeding tubes as agree that this will not improve her quality of life #4 DNRCCA DNI, In my professional opinion, based on the patient's disease,prognosis and values,CPRis not indicated. I discussed what CPR is and intubation /venitlator and the possible sequelae of ICU stay s/p code situation with the family and discussed DNRCCA DNI vs DNRCC , vs full code. They agree she would never wish to be on the vent o r in ICU responsible alliance party Maikol states CPR iS NOT DESIRED Advanced directive is; (code status) DNRCCA DNI Order placed in epic and on paper form Advanced care planning referrals. Notifed SW of this and family request for info re; post snf options I gave socorro my phone number, answered all questions Christin Camara, MSN, WALLPAPER SCRAPER-WESTERN PHILOSOPHY PROFESSOR Nurse Practitioner Department of Geriatrics [place], [place] [address] pager: [phone] ////////////////////////////////// //////////////////////////////// I spent a total of 47 minutes total ( 19 minutes were doing ACP discussion ) spent providing patient care on this date01/29/24 UB cam done + ACP discussion Met with nurse for collateral Met with music therapy and PT re: update behavior delirium dementia , debility Counseling with family re; dementia ,delirium depression , medications cognitive deficits trajectory of dementia and care needs and answered many questions from multiple family re; DENs fx and ICA stenosis discussed increased risks for stroke dementia Secure echat to SW Secure echat to trauma team re; ICA stenosis , Discontinued oxy 5mg, seroquel atarax Added on labs b12, tsh Time-based billing justifications: Reviewing (chart, labs, and other clinical notes) Obtaining history (or reviewing separately obtained history) Patient visit (including performing a medically appropriate exam) Counseling/educating the patient/family/caregiver Ordering (medications, tests, procedures - including independent interpretation of results when not reported separately) Referring/communicating with other health assisted living care manager - when not reported separately Charting in Epic Discussed recommendations with Yudelka Cervantes A/P: assessment and plan copied from [facility] note in italics from 01/27 reviewed revised and revisions in bold #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, possibly Alzheimers without behavioral disturbance, plus vascular as hx of lacunar infarct, vs primary progressive aphasia due to limited verbal output, # severe stenosis of proximal ICAs and severe stenosis of rt vertebral artery # acute delirium due to trauma and uti and hospitalization sleep deprivation Per collateral information from family notes the following: gradual memory changes for 2 yrs, dx with dementia 1.5yr ago and a rapid decline over the past 3 months with withdrawal, staying in bed , self neglect, decreased interest in toileting grooming, loss of memory, forgetting family, not eating and increased difficulty with executive function, personality changes, no wandering , no behavioral disturbance, no Paranoia, but may have depression , sleeping all of the time not eating - neg family hx of dementia - I reviewed the report for imaging at [facility] but could not view imaging - reviewed the CTA neck which shows; Advanced atherosclerotic disease resulting in severe stenosis ( >70%) of the proximal ICAs and severe stenosis at the right vertebral artery origin. - see neuro note copied under assessment and plan from my progress note 01/27, but neuro wondered if primary progressive aphasia - today family endorsing pt without socialization just stays in bed, believe she may respond to more structured environment - recommend discontinue seroquel and atarax and oxycodone 5mg (done) - recommend start celexa 10mg po daily and in 3-4 days if QTc ok and pt tolerating med, recommend increase to max dose of 20mg q am, this will help improve mood anxiety depression in elderly with dementia and may prevent agitation/delirium - prior cognitive testing . [place] unable to complete on 05/14/23 with neuro - added on TSH, B12 to todays labs, syphilis pending - HEDIS SPECIALIST for cognitive-linguistic evaluation cognition, already following -WBc is 17improved -> , antibx for UTI per primary team - sodium is 138-> 141 stable - creat 1.26 -> 0.95 baseline - agree with decrease aricept from 10mg to 5mg and recommend consider tapering down furtherto 2.5 in a wk then stop 2 wk from now. Discussed risks outweigh benefits with family. pt lost almost 20lb and aricept can cause bradycardia syncope and anorexia - mood improved today and pt slept well last night without agitation - avoid antipsychotics if possible - music and art therapy - discussed with dtr that pt lacks insight into her deficits and has declined cognitively and functionally and cannot safely make a decision re; not going to hospital after a head strike on coumadin. She likely will not be able to make a safe decision re; discharge and care needs after snf. Recommended discussing snf /AL memory unit etc, or increased home services. Reviewed all of the above again with family , pt unsafe being alone and pt was not taken to ED after fall and head strike on blood thinners by the patient care provider. Family thinking of placement , they agree now with 24/7 care and cannot provide this , if pt returns to home APS needs to be called. -continue Delirium Precautions; # Adjustment reaction with depressed mood and anxiety - pt withdrawn, losing wt, loss of interest, new VH , concern for depression , - would avoid remeron at this time and ordered celexa 10mg to activate her . - recommend frequent family visits reminiscing etc. -music art therapy - family declined animal therapy - has living will and hcpoa, copy made today and placed in paper chart to be scanned into media marketing manager Discharge planning - tentative discharge plan is snf - reviewed with family that pt needs 24/7 care They ask to speak with SW , secure chat to him Medical management - recommend discontinue seroquel and atarax and oxycodone 5mg (done) - recommend start celexa 10mg po daily and in 3-4 days if QTc ok (done) - recommend check TSH B12, ( added onto labs today) -recommend discontinue CTX - continue melatonin 3mg/d -recommend high dose statin given atherosclerotic disease, CVA hx and ICA Stenosis , atorastatin or crestor have lower side effect profile - avoid resumption of ozempic /trulicity - decrease aricept to 2.5mg in a wk , discontinue in 2 wk Geriatric Medicine will continue to follow I have personally reviewed the [employer] consultant notes, nursing notes, therapy and allied healthcare provider notes, labarotary tests and imaging/radiological tests. I have obtained pertinent history from the patient and/or surrogate including via chart review. I have independantly interpreted the tests performed and discussed management with other consultants/providers involved in the treatment of this patient. Christin Camara, MSN, WALLPAPER SCRAPER, WESTERN PHILOSOPHY PROFESSOR Adult/Geriatric Nurse Practitioner Department of Geriatric Medicine [facility] [address] [address] Geriatric pager: [phone] Personal pager: [phone] documented in this encounter [facility] 02-05-2024 Note Attestation signed by Iesha Gold MD at 02/09/2024 8:04 AM ACS Attending Attestation Teaching Physician Note: I saw and evaluated the patient. I personally obtained the abbott and critical portions of the discharge summary including any documented physical exam. I reviewed the resident's documentation and discussed the patient with the resident. I agree with the resident's medical decision making as documented in the resident's note. Bernardino Guzman seen and examined, chart reviewed. Bernardino Guzman is deemed ready for discharge with services arranged as per the Discharge Summary notes above. Following services provided in discharge planning by the medical team: -final examination -discussion of the hospital stay -instructions to all relevant caregivers for continuing care -preparation of discharge records, including time spent dictating a discharge summary; prescriptions; and referral forms for any follow-up services 30 minutes of cumulative time was spent in the above mentioned activities as this patient's hospital course includes observation with a comprehensive history, comprehensive exam and medical decision-making of high complexity. Diagnosis List Type II dens fracture Atrial fibrillation on AC Coagulopathy due to medication use Demential, mild CAD HTN Type II DM Anxiety Depression ICA stenosis, bilateral Right vertebral artery stenosis Esophageal dysphagia Anorexia/poor appetite ERON, resolved Insomnia HLD Vitamin D deficiency Operative procedures by this team None Follow up plan Follow up with ortho Spine (Dr. Maya) in two weeks Follow up with your PCP regarding your incidental findings. Trauma follow up not indicated Iesha Gold MD [facility] Attending DISCHARGE SUMMARY [address] [address] Bernardino Guzman Date of : 1940 83 year oldfemale Attending Iesha Gold MD Date of Admission 01/28/2024 Date of Discharge 02/05/24 [facility] DIVISION OF ACUTE CARE SURGERY FINAL DIAGNOSES: Hospital Problems as of 02/05/2024 * (Principal) Dens fracture ([facility]) Closed odontoid fracture, initial encounter ([facility]) Fall PROCEDURES: 01/29/2024 RUE PICC line placement by Dr. Chris Pelayo DISCHARGE MEDICATIONS: Current Discharge Medication List START taking these medications Details enoxaparin (LOVENOX) 60 MG/0.6ML injection Inject 0.5 mL under the skin 2 times daily. Continue until INR is therapeutic Qty: 10 Each, Refills: 0 vitamin B-12 (CYANOCOBALAMIN) 500 MCG tablet Take 2 Tablets by mouth daily. Qty: 30 Tablet, Refills: 3 senna (SENOKOT) 8.6 MG tablet Take 1 Tablet by mouth at bedtime. Qty: 30 Tablet, Refills: 0 acetaminophen (TYLENOL) 500 MG tablet Take 2 Tablets by mouth every 8 hours. Qty: 30 Tablet, Refills: 0 citalopram (CeleXA) 20 MG tablet Take 1 Tablet by mouth daily. CONTINUE these medications which have NOT CHANGED Details Cholecalciferol (Vitamin D3) 25 MCG (1000 UT) CAPS Take 25 mcg by mouth daily. diltiazem (Dilt-XR) 120 MG XR capsule Take 120 mg by mouth at bedtime. donepezil (ARICEPT) 5 MG tablet Take 5 mg by mouth at bedtime. furosemide (LASIX) 20 MG tablet Take 20 mg by mouth every other day. lisinopril (ZESTRIL) 2.5 MG tablet Take 2.5 mg by mouth daily. simvastatin (ZOCOR) 40 MG tablet Take 40 mg by mouth daily. at bedtime warfarin (COUMADIN) 2 MG tablet Take 2 mg by mouth daily. STOP taking these medications hydrOXYzine pamoate (VISTARIL) 25 MG capsule Comments: Reason for Stopping: QUEtiapine (SEROQUEL) 25 MG tablet Comments: Reason for Stopping: REASON FOR HOSPITALIZATION: Bernardino Guzman is a 83 year old female w/ pmh significant for A-fib on warfarin, mild dementia, CAD, CVA, HTN, and DM2 brought in by EMS from an outside hospital ([facility]) as a CAT 2 trauma following an unwitnessed fall w/ a daignosis of a Type 2 Dens Fracture. Per EMS, patient was found on floor after being down several hours. ? Head strike, ? LOC (patient amnestic to the event) + AC/AP (ASA AND Plavix) Pt reports having a pacemaker in place but otherwise has no other medical concerns at this time. At baseline, pt uses a walker for ambulation. Per patient's paperwork, during her ED course at [facility], pt did have an episode of emesis for which she got a dose of zofran. INR was therapeutic at 2.85. UA was significant for a UTI and patient was given a dose of IV recephin. CTA Neck was not done prior to transfer. SIGNIFICANT FINDINGS: Diagnoses: 1. S/p unwitnessed fall 01/28/2024 2 Type 2 Dens Fx Incidental Findings Reviewed on 01/29/2024 CI. Discussed by AA on 01/31 Advanced atherosclerotic disease resulting in severe stenosis ( >70%) of the proximal ICAs and severe stenosis at the ri (more content not included)... [facility] 02-05-2024 Hospital Discharge instructions Corina German APRN-CNP - 02/05/2024 3:36 PM EDT TRAUMA SURGERY DISCHARGE INSTRUCTIONS Bernardino Guzman - [id number] Admission Date: 01/28/2024 3:02 AM Discharge Date: 02/05/24 Disposition: improved The following is a brief overview of your hospitalization. Some of the information contained on this summary may be confidential. This information should be kept in your records and should be shared with your regular doctor. HOSPITAL STAY Principal Diagnosis: TRAUMA- Fall Other Diagnosis: Patient Active Hospital Problem List- Patient Active Problem List: Dens fracture ([facility]) [S12.110A] Closed odontoid fracture, initial encounter ([facility]) [S12.100A] Fall [W19.XXXA] Physician: Iesha Gold MD Operations: None Findings: Type 2 Dens Fracture Pending Results: 01/29/2024 RUE PICC line placement by Dr. Chris Pelayo INSTRUCTIONS Wound Care- If you have any wounds, keep area(s) clean and dry. It is okay to shower 48 hours after time of surgery. Do not scrub wound(s), pat dry. Do not submerge wound(s) in standing water until seen back in clinic (no tub bathing, swimming, or hot tubs). No lotions or creams. Please visually inspect any wound(s) at least once daily. If the wound(s) are in a difficult to see location, please use a mirror or have someone else assist with visual inspection. If you have sutures that you can see outside of the skin or nishant: Please have nishant/sutures removed in our clinic or by your primary care physician 10-14 days after the date of surgery. Do not remove the nishant/sutures on your own. Return sooner or call if wound(s) or surrounding area have increased swelling, pain, warmth, redness, or drainage that is thick, yellow and/or green. Activity- No heavy lifting, weight bearing as tolerated, no driving until mobility is returned to normal. Do not lift, push or pull more than [address] for [address] or operate heavy machinery while taking narcotic pain medications as these medications can alter perception, impair judgement, and slow reaction times. Keep your C-collar on at all times until your follow-up with orthopedics/spine Pain Control- If your pain is mild to moderate (1-6 out of 10 on the pain scale), you may take: Tylenol (acetaminophen) 325 mg, 1-2 tablets every 6 hours as needed If you are still having pain 30 minutes after taking Tylenol, add: Motrin (ibuprofen) 400 mg, 1 tablet every 6 hours as needed. Please begin to wean off of your pain medications as soon as possible. You may use Motrin and Tylenol until your pain is diminished enough for you to tolerate your pain. If you begin to experience progressive and rapidly increasing pain that seems out of proportion to what you normally have been experiencing from your baseline pain after surgery/injury, or if your fingers become numb and/or turn blue and cold - you NEED TO CALL US IMMEDIATELY. Alternatively, you may come into the [facility] Emergency Department IMMEDIATELY for an emergent evaluation. Diet- You may resume your regular diet Follow-Up- Follow up with Dr. Maya from orthopaedic surgery for your spine fracture in 2 weeks; call [phone] to schedule Follow up with [facility] vascular surgery clinic for discussion of your incidental findings; call [phone] to schedule Follow up with your primary care provider in 1-2 weeks. If you do not have a primary care provider, call [phone] to schedule with a [facility] provider. Daily INR until therapeutic coumadin dosing If you have questions or concerns, if your condition worsens or you develop new symptoms such as weakness, numbness or tingling please call the [facility] at [phone]. After hours and on weekends, please call the surgery resident on-call at . Ask the solder deposit operator for the general surgery resident conditioner tumbler. I have received a copy of the above instructions and understand them. I have received my personal belongings and/or valuables slip. SIGNED: Patient/POA SIGNED: Registered Nurse documented in this encounter [facility] 02-05-2024 Progress note Formatting of t his note might be different from the original. CASE MANAGEMENT/SOCIAL WORK SNF DC NOTE: Pt has been cleared for transfer to [facility] on this date Pt will be transferred to [facility] via [employer] ([id number]) at 163 Nursing report may be called to [phone] Support person notified: Socorro at [phone] Patient/Family, team aware of above and agreeable. For discharge, please ensure the following is completed: MD to place DC order, reconcile meds, and print narcotics to go with patient to SNF [facility] to print Discharge Summary, [place], Summary of Care, Narcotic Scripts, and Signature Page and place in a packet to be given to trailer driver If transport/discharge needs to be adjusted/cancelled, team (/RN) to cancel transport, update support person, and update receiving facility. [facility] 02-05-2024 Miscellaneous Notes CASE MANAGEMENT/SOCIAL WORK SNF DC NOTE: Pt has been cleared for transfer to [facility] on this date Pt will be transferred to [facility] via [employer] ([id number]) at 1633 Nursing report may be called to [phone] Support person notified: Socorro at [phone] Patient/Family, team aware of above and agreeable. For discharge, please ensure the following is completed: MD to place DC order, reconcile meds, and print narcotics to go with patient to SNF [employer] to print Discharge Summary, [place], Summary of Care, Narcotic Scripts, and Signature Page and place in a packet to be given to trailer driver If transport/discharge needs to be adjusted/cancelled, team (/RN) to cancel transport, update support person, and update receiving facility. CM aware that precert is still pending for patient at the [facility]. CM will continue to follow for discharge. KEM Galeas, information assoc, PH: [phone] ([id number]) PH: [phone] (mobile) PH: [phone] (Sat only) Email: [email or web address] CASE MANAGEMENT OT note sent to [facility], precert initiated. 7000 complete. Case management will continue following patient for further discharge needs as warranted. Alicia BROWNLEE RN CMSRN PRN Burial Vault Setter CASE MANAGEMENT [facility] has no available female beds. CM will udpate patient/family and get additional SNF choices. ADDENDUM: CM spoke with patient's daughter Socorro and informed her of above. SNF list emailed to [email or web address]. ADDENDUM: Referral sent to [facility] per daughter's request. CM will [facility] updated [facility] and request initiation of precert if facility can accept. ADDENDUM: [facility] can accept. CM [facility]'s [facility]. CM will attach OT note once available. CM requested initiation of precert. Case management will continue following patient for further discharge needs as warranted. Alicia BROWNLEE RN CMSRN PRN Burial Vault Setter Interval Neurosurgery note: Upright C-spine images completed and reviewed with Dr. Maya Plan: -Trauma primary -[place] collar at all times -please have patient follow up in clinic in two weeks with Dr. Maya -remainder per primary -Neurosurgery signing off at this time Mable Dusky MSN, WALLPAPER SCRAPER-WESTERN PHILOSOPHY PROFESSOR Neurosurgery [phone] ADVANCE CARE PLANNING RECORD OF DISCUSSION (Please see my progress note this date as the ACP discussion and billing included in that visit) Met in hospital room initially then moved to area at [facility] as pt sleeping Pt unable to participate with decisions due to dementia delirium paucity of speech Present for meeting were; ADVANCED CARE PLANNING DECISION MAKER socorro franklin [phone] HCPOA available in person Tanisha rojas 1st alternate available on phone Son Luciano Guzman Dtr in law desire Myself I DISCUSSED ADVANCED CARE PLANNING ISSUES WITH THE HEALTH CARE DECISION MAKER NOTED ABOVE LIVING WILL (YES) POWER OF DRIP BOX TENDER FOR HEALTH CARE (YES) ADVANCE DIRECTIVE FOR LIFE THREATENING EVENT(YES) DISEASE (ACP DISEASE) severe malnutrition Adult failure to thrive PROGNOSIS (ACP DISEASE) fair to poor I reviewed and discussed the current condition and prognosis of (the pt) incluiding dementia, atrial fib, bilateral ICA stenosis and rt vertebral artery stenosis, recent DENS fx , hx of falls, progressive cognitive and functional decline in setting of dementia that is likley Alzheimers and vascular with the family listed above, the responsible parties . The responsible partys understanding of the patient's current condition and prognosis is good . The patient's personal values and priorities re; issues of longevity, function and comfort care/relief of pain and suffering as related by the patient or the responsible alliance party were discussed and reviewed.The family and HCPOA prioritized these values as they relate to the medical care goals. As; #1 priority attempt to improve her strength with snf stay and therapy #2 priority attempt to improve her nutrtiion and wt with food, supplements, discontinuation ozempic and taper off of aricept, # 3 decline feeding tubes as agree that this will not improve her quality of life #4 DNRCCA DNI, In my professional opinion, based on the patient's disease,prognosis and values,CPRis not indicated. I discussed what CPR is and intubation /venitlator and the possible sequelae of ICU stay s/p code situation with the family and discussed DNRCCA DNI vs DNRCC , vs full code. They agree she would never wish to be on the vent o r in ICU responsible alliance party Maikol states CPR iS NOT DESIRED Advanced directive is; (code status) DNRCCA DNI Order placed in epic and on paper form Advanced care planning referrals. Notifed SW of this and family request for info re; post snf options I gave socorro my phone number, answered all questions Christin Camara, MSN, WALLPAPER SCRAPER-WESTERN PHILOSOPHY PROFESSOR Nurse Practitioner Department of Geriatrics [place], [place] [address] pager: [phone] Social Work/Case Management: Reason for placement: PT/OT Therapies Patient level of care required : Skilled Applicant's potential for returning to community: Convalescent stay:<30 days Prognosis: Good Rehab Potential: Improve Mental/Behavioral status:Confused Affect: Calm Social Work Assessment Functional status prior to admission: family assist Community agencies active with patient: NA Support system: family Capacity for independent living/ad terminal makeup operator plan:fair Other hospital admissions within the past 60 days: No Other pertinent problems: NA CASE MANAGEMENT CM aware that patient meets criteria for SNF. Met with patient and family on unit to discuss dispo. Patient open and agreeable to SNF placement. CM provided patient and family the quality and resource use measure data from available post-acute (PAC) providers, that best align with the patient's treatment goals and preferences from the medicare.gov compare site for SNF. [place] of Choice was provided to the patient/patient traffic representative. For SNF: RN/MD to complete [employer]. CM portion of [employer]-complete. [id number] to be initiated in HENS Pt will require a pre-cert. Patient/family only had one SNF choice, referral submitted in [facility]. Case management will continue following patient for further discharge needs as warranted. Alicia YINGN RN CMSRN PRN Burial Vault Setter PICC team at bedside to place access, poor venous presentation. Unable to place access at bedside primary rn made aware. documented in this encounter [facility] 02-04-2024 Consult note Formatting of th is note is different from the original. PHYSICAL THERAPY PROGRESS SUMMARY Patient seen from 15:39 to 15:54 on 5E unit for 15 minute treatment. SUBJECTIVE: Patient Subjective/Goals: I was up earlier OBJECTIVE: Appearance: Pt L sidelying in bed, bed alarm on, hep locked IV, [place] collar donned Behavior: Awake, flat, cooperative Oriented x3 Pain: Site/Location: denies pain; Pain Scale: 0/10 Pain Relief Interventions Implemented: None required; No pain at this time Mobility NA Dep Max Mod Min CG CS DS NE I Comment Roll to left sidelying x HOB flat Sidelying to sit x Via log roll Sit to/from stand x From bed and chair, RW Walking on level surface x 40'x2, RW Gait Analysis: pt demos step through pattern, slow brian, NBOS, no LOB Cues for body approximation to RW Pt requires seated rest break due to fatigue Stand to sit x To chair, RW Functional Endurance: Impaired Sitting Balance: Static:good CS at EOB Dynamic:fair Standing Balance: Static: good with assistive device rolling walker Dynamic:fair with assistive device rolling walker Patient/Family Education: Instructed Patient in roles of therapy. Sitting up in chair at least 1 hr and for all meals Not getting up without assistance from nursing Patient up in chair with call light in reach. Chair alarm intact. DME: With Patients permission ordered no equipment via upad Order. If any questions contact [facility] DME Provider at [phone]. 02/04/2024 6 Clicks Basic Mobility PT Difficulty turning over in bed 3 Difficulty sitting down and standing up from a chair with arms 3 Difficulty moving from lying on back to sitting on the side of the bed 3 Help from another person moving to and from bed to a chair 3 Help from another person to walk in hospital room 3 Help from another person climbing 3-5 steps with a railing 2 PT 6 Clicks Score 17 6 Click Score Guidelines: 1 - Total = Requires total assistance, or cannot do at all. 2 - A lot = Requires a lot of help (maximun to moderate assistance) Can use assistive devices. 3 - A little = Requires a little help (supervision, minimal assistance) Can use assistive devices. 4 - None = Does not require any help and does the activity independently. Can use assistive devices. ASSESSMENT: Recommend further therapy services in a Halfway Setting once medically cleared. Will continue to follow patient while in hospital as appropriate. Goals (to be achieved by discharge from acute care): Patient will achieve acceptable level of pain control to allow participation in therapy. Patient will increase bed mobility to close supervision MET Patient will perform sit to/from stand with rolling walker with close supervision Patient will ambulate 50 feet with rolling walker with close supervision Patient will increase ROM/Strength/Endurance/Balance to allow for above goals. Patient/Family independent with exercise program/precautions. Revised goals 02/04/24 Patient will achieve acceptable level of pain control to allow participation in therapy. Patient will increase bed mobility to Mod I Patient will perform sit to/from stand with rolling walker with close supervision Patient will ambulate 50 feet with rolling walker with close supervision Patient will increase ROM/Strength/Endurance/Balance to allow for above goals. Patient/Family independent with exercise program/precautions. PLAN: Will follow established Plan of Care Ingris Le PT, DPT NA = Not Assessed, I = Independent, NE = Modified Independent, Sup = Supervised, Set up = Physical Assistance for Set-up Only, Min = Minimal Assistance, Mod = Moderate Assistance, Max = Maximal assistance; Dep = Dependent; AROM = Active Range of Motion; PROM = Passive Range of Motion; MMT = Manual Muscle Test [facility] 02-04-2024 Note PHYSICAL THERAPY PRO CARROL SUMMARY Patient seen from 15:39 to 15:54 on 5E unit for 15 minute treatment. SUBJECTIVE: Patient Subjective/Goals: I was up earlier OBJECTIVE: Appearance: Pt L sidelying in bed, bed alarm on, hep locked IV, [place] collar donned Behavior: Awake, flat, cooperative Oriented x3 Pain: Site/Location: denies pain; Pain Scale: 0/10 Pain Relief Interventions Implemented: None required; No pain at this time Mobility NA Dep Max Mod Min CG CS DS NE I Comment Roll to left sidelying x HOB flat Sidelying to sit x Via log roll Sit to/from stand x From bed and chair, RW Walking on level surface x 40'x2, RW Gait Analysis: pt demos step through pattern, slow brian, NBOS, no LOB Cues for body approximation to RW Pt requires seated rest break due to fatigue Stand to sit x To chair, RW Functional Endurance: Impaired Sitting Balance: Static:good CS at EOB Dynamic:fair Standing Balance: Static: good with assistive device rolling walker Dynamic:fair with assistive device rolling walker Patient/Family Education: Instructed Patient in roles of therapy. Sitting up in chair at least 1 hr and for all meals Not getting up without assistance from nursing Patient up in chair with call light in reach. Chair alarm intact. DME: With Patients permission ordered no equipment via upad Order. If any questions contact [facility] DME Provider at [phone]. 02/04/2024 6 Clicks Basic Mobility PT Difficulty turning over in bed 3 Difficulty sitting down and standing up from a chair with arms 3 Difficulty moving from lying on back to sitting on the side of the bed 3 Help from another person moving to and from bed to a chair 3 Help from another person to walk in hospital room 3 Help from another person climbing 3-5 steps with a railing 2 PT 6 Clicks Score 17 6 Click Score Guidelines: 1 - Total = Requires total assistance, or cannot do at all. 2 - A lot = Requires a lot of help (maximun to moderate assistance) Can use assistive devices. 3 - A little = Requires a little help (supervision, minimal assistance) Can use assistive devices. 4 - None = Does not require any help and does the activity independently. Can use assistive devices. ASSESSMENT: Recommend further therapy services in a Halfway Setting once medically cleared. Will continue to follow patient while in hospital as appropriate. Goals (to be achieved by discharge from acute care): Patient will achieve acceptable level of pain control to allow participation in therapy. Patient will increase bed mobility to close supervision MET Patient will perform sit to/from stand with rolling walker with close supervision Patient will ambulate 50 feet with rolling walker with close supervision Patient will increase ROM/Strength/Endurance/Balance to allow for above goals. Patient/Family independent with exercise program/precautions. Revised goals 02/04/24 Patient will achieve acceptable level of pain control to allow participation in therapy. Patient will increase bed mobility to Mod I Patient will perform sit to/from stand with rolling walker with close supervision Patient will ambulate 50 feet with rolling walker with close supervision Patient will increase ROM/Strength/Endurance/Balance to allow for above goals. Patient/Family independent with exercise program/precautions. PLAN: Will follow established Plan of Care Ingris Le, PT, DPT NA = Not Assessed, I = Independent, NE = Modified Independent, Sup = Supervised, Set up = Physical Assistance for Set-up Only, Min = Minimal Assistance, Mod = Moderate Assistance, Max = Maximal assistance; Dep = Dependent; AROM = Active Range of Motion; PROM = Passive Range of Motion; MMT = Manual Muscle [facility] 02-04-20[facility] Consult note Formatting of th is note is different from the original. PHYSICAL THERAPY PROGRESS SUMMARY Patient seen from 15:39 to 15:54 on 5E unit for 15 minute treatment. SUBJECTIVE: Patient Subjective/Goals: I was up earlier OBJECTIVE: Appearance: Pt L sidelying in bed, bed alarm on, hep locked IV, [place] collar donned Behavior: Awake, flat, cooperative Oriented x3 Pain: Site/Location: denies pain; Pain Scale: 0/10 Pain Relief Interventions Implemented: None required; No pain at this time Mobility NA Dep Max Mod Min CG CS DS NE I Comment Roll to left sidelying x HOB flat Sidelying to sit x Via log roll Sit to/from stand x From bed and chair, RW Walking on level surface x 40'x2, RW Gait Analysis: pt demos step through pattern, slow brian, NBOS, no LOB Cues for body approximation to RW Pt requires seated rest break due to fatigue Stand to sit x To chair, RW Functional Endurance: Impaired Sitting Balance: Static:good CS at EOB Dynamic:fair Standing Balance: Static: good with assistive device rolling walker Dynamic:fair with assistive device rolling walker Patient/Family Education: Instructed Patient in roles of therapy. Sitting up in chair at least 1 hr and for all meals Not getting up without assistance from nursing Patient up in chair with call light in reach. Chair alarm intact. DME: With Patients permission ordered no equipment via upad Order. If any questions contact [facility] DME Provider at [phone]. 02/04/2024 6 Clicks Basic Mobility PT Difficulty turning over in bed 3 Difficulty sitting down and standing up from a chair with arms 3 Difficulty moving from lying on back to sitting on the side of the bed 3 Help from another person moving to and from bed to a chair 3 Help from another person to walk in hospital room 3 Help from another person climbing 3-5 steps with a railing 2 PT 6 Clicks Score 17 6 Click Score Guidelines: 1 - Total = Requires total assistance, or cannot do at all. 2 - A lot = Requires a lot of help (maximun to moderate assistance) Can use assistive devices. 3 - A little = Requires a little help (supervision, minimal assistance) Can use assistive devices. 4 - None = Does not require any help and does the activity independently. Can use assistive devices. ASSESSMENT: Recommend further therapy services in a Halfway Setting once medically cleared. Will continue to follow patient while in hospital as appropriate. Goals (to be achieved by discharge from acute care): Patient will achieve acceptable level of pain control to allow participation in therapy. Patient will increase bed mobility to close supervision MET Patient will perform sit to/from stand with rolling walker with close supervision Patient will ambulate 50 feet with rolling walker with close supervision Patient will increase ROM/Strength/Endurance/Balance to allow for above goals. Patient/Family independent with exercise program/precautions. Revised goals 02/04/24 Patient will achieve acceptable level of pain control to allow participation in therapy. Patient will increase bed mobility to Mod I Patient will perform sit to/from stand with rolling walker with close supervision Patient will ambulate 50 feet with rolling walker with close supervision Patient will increase ROM/Strength/Endurance/Balance to allow for above goals. Patient/Family independent with exercise program/precautions. PLAN: Will follow established Plan of Care Ingris Le PT, DPT NA = Not Assessed, I = Independent, NE = Modified Independent, Sup = Supervised, Set up = Physical Assistance for Set-up Only, Min = Minimal Assistance, Mod = Moderate Assistance, Max = Maximal assistance; Dep = Dependent; AROM = Active Range of Motion; PROM = Passive Range of Motion; MMT = Manual Muscle Test Images from the original note were not included. Adult Inpatient Nutrition Assessment Reason for Visit: 7 day follow up Nutrition Assessment: Admitting Diagnosis: TRAUMA- Fall No past medical history on file. is allergic to: No Known Allergies Nutritionally Significant Meds: vitamin D, lasix, humalog, miralax, senna, vitamin B12, coumadin LR @ 75 cc/hr Labs: Basic Metabolic Panel 02/04/2024 02/03/2024 1:45 AM 1:00 AM Na 135 134 K 4.6 4.4 Cl 101 100 CO2 28 27 Gap 11 11 Glu 150 124 BUN 32 23 Cr 1.04 1.16 Ca 8.9 8.8 CBC (last 3 years, up to 8 values) 02/03/2024 02/01/2024 01/31/2024 01/30/2024 01/29/2024 01/28/2024 1:00 AM 3:08 AM 1:03 AM 12:25 AM 3:43 AM 3:07 AM WBC 10.9 8.7 10.3 10.5 11.7 17.0 RBC 4.19 3.91 4.16 4.26 4.74 4.77 Hgb 11.8 11.0 11.6 12.1 13.4 13.3 Hct 35.8 33.1 35.3 36.2 40.5 40.4 MCV 85 85 85 85 86 85 RDW 15.4 15.4 15.6 14.8 15.6 15.5 Plt 339 285 309 317 344 368 Fingerstick Glucose (last 72 hours) (Last 10 results in the past 72 hours) Glucose 02/04/24 1140 256 02/04/24 0738 145 02/03/24 2045 161 02/03/24 1645 194 02/03/24 1200 161 02/03/24 0726 119 02/02/24 2134 144 02/02/24 1640 216 02/02/24 1138 149 02/02/24 0752 110 Vital sign ranges over the past 24 hours (retrieved 02/04/2024 at 3:42 PM): Tmax (24 hours): 98.2 F (36.8 C) Pulse Av.7 Min: 8 Max: 97 Systolic (24hrs), Av , Min:109 , Max:152 Diastolic (24hrs), Av, Min:59, Max:73 MAP (mmHg) Av mmHg Min: 81 mmHg Max: 85 mmHg Resp Av Min: 18 Max: 18 SpO2 Av.7 % Min: 99 % Max: 100 % Intake/Output Summary (Last 24 hours) at 02/04/2024 1542 Last data filed at 02/04/2024 1044 Gross per 24 hour Intake 460 ml Output -- Net 460 ml BM: 02/03 Diet Order: dysphagia advanced, Boost GC Max PO intake: 25-50% Height: 5' 4 Weight: 47.6 kg IBW: 55 kg %IBW: 87 BMI: 18.02: Underweight Estimated needs: 9885-1956 kcal/d 30-35 kcal/kg 57-72 g pro/d 1.2-1.5 g pro/kg 1440 cc/d 30 cc/kg Assessment: 83 year old female w/ pmh significant for A-fib on warfarin, mild dementia, CAD, CVA, HTN, and DM2 brought in by EMS from an outside hospital ([facility] as a CAT 2 trauma following an unwitnessed fall w/ a daignosis of a Type 2 Dens Fracture. Per EMS, patient was found on floor after being down several hours. ? Head strike, ? LOC (patient amnestic to the event) + AC/AP (ASA & Plavix) Pt reports having a pacemaker in place but otherwise has no other medical concerns at this time. At baseline, pt uses a walker for ambulation. Per patient's paperwork, during her ED course at [facility], pt did have an episode of emesis for which she got a dose of zofran. INR was therapeutic at 2.85. UA was significant for a UTI and patient was given a dose of IV recephin. CTA Neck was not done prior to transfer. Hospital Course: 01/28/2024: Transfer to [facility] for T2 dens Fx. Admitted to [facility] 01/29/2024 No acute events 01/29 No acute events 01/30 Restarting Warfarin, Tolerating po 01/31 No acute events 02/01: Medically cleared for discharge to SNF. At this follow up, Pt is on a dysphagia advanced diet. PO intake remains poor, 25-50% of meals consumed per intake flow sheet. Last BM 02/03, no emesis. BG levels appearing well controlled. Pt receiving Boost GC Max w/ meals, please continue. No new weight to assess, please weigh weekly. See recs below, thank you. Nutrition Interventions: 1. Diet Per HEDIS SPECIALIST recs Continue Boost GC Max TID 2. Continue insulin coverage PRN 3. Weekly weights Will continue to follow Edgar Kim RD, DARELL Personal Pager [phone] Automatic Door Mechanic Pager: [phone] Art Therapy Note Referral received. Chart reviewed, history noted. Thank you. Patient identified by Verbalizing name Narrative Note: Date/Time: 02/03/2024 at 0955 to 1005 Time Spent: 10 minutes Art Therapist (AT) entered room to offer patient art therapy support service. AT found patient seated in beside recliner, with breakfast tray in place. Patient was watching television. Upon greeting, patient responded verbally with soft voice. Patient displayed a muted affect with intermitted eye contact..AT introduced self and reviewed role of art therapy along with risks/benefits to patient. AT offered patient art making experience for self autonomy and sensory stimulation. Patient declined art making at this time. Patient stated that she did not enjoy her breakfast, and was waiting to return to bed. AT offered patient engagement of art making with AT creating from patient direction. Patient appeared hesitant, but was agreeable. AT created a tissue paper flower sculpture with patient direction. Patient make choices for her flower color, demonstrating self autonomy. Patient chose pink shades and purple. Patient increased attention and eye contact with AT as session progressed, as evidenced by patient watching less television and more of art experience. AT observed patient displaying a softened affect by smiling when flower was complete. Patient was agreeable for AT to return. Will continue to follow. Goals Addressed: Improved quality of life/self-esteem/adjustment/sense of autonomy as evidenced by: increased engagement in art intervention increased self-advocacy positive affect change Plan: Art therapy will follow patient focusing on Art Plan List: enhancing adjustment to hospitalization/medical situation and enhancing positive coping strategies Patient will be seen 1-2 times per week. Please refer to Art Therapy flowsheet for more data. Sloane Pruitt MA, ATR-BC Art Therapist, [facility] [email or web address] OCCUPATIONAL THERAPY PROGRESS SUMMARY Patient seen from 0900 to 0923 on GC5E unit for 23 minute treatment. SUBJECTIVE: Patient Subjective/Goals: I just feel tired. OBJECTIVE: Pain: No pain reported or noted Pain Relief Interventions Implemented: None required; No pain at this time Appearance/Behavior: Supine, IV, c-collar, frail. Pt pleasant and cooperative Cognition: Oriented to self, place, month/year. Requires intermittent cues for sequencing during ADLs UE Status: BUE AROM grossly WFL except shoulder flexion limited to 1/2 of full range. Generalized weakness noted Self Care: Assistance Level NA Dep Max Mod Min CG CS DS NE I Set-Up Cues Comment Feeding x x Grooming/ Hygiene x x Pt completed facial hygiene and combing hair standing at sink Cues for sequencing Bathing: Upper Body x Simulated sponge bathing Bathing: Lower Body x Simulated sponge bathing Dressing: Upper Body x Anticipated to don shirt Dressing: Lower Body x Anticipated to don pants Toileting x Anticipated for management of hygiene Toilet Transfers x anticipated Bed Transfer x Sit to stand from EOB to wheeled walker- CGA Pt ambulated to and from bathroom with wheeled walker- CGA, cues for walker management Bed Mobility x Supine to sit EOB Endurance for Self Care: Impaired Patient/Family Education: Instructed patient in roles of therapy, importance of OOB activity and occupational engagement, discharge planning, fall prevention DME: With Patients permission ordered no equipment via upad Order. If any questions contact [facility] DME Provider at [phone]. 01/30/2024 6 Clicks Daily Activity OT Help from another person Eating meals 3 Help from another person taking care of personal grooming 3 Help from another person bathing 3 Help from another person putting on and taking off regular upper body clothing 3 Help from another person putting on and taking off regular lower body clothing 3 Help from another person toileting 3 OT 6 Clicks Score 18 6 Click Score Guidelines: 1 - Unable = Total/Dependent Assist 2 - A lot = Max/Moderate Assist 3 - A little = Minimum/Contact Guard Assist/Supervision 4 - Non = Modified [place]/Independent ASSESSMENT: Recommend further therapy services in a Skilled Rehab Setting once medically cleared. Will continue to follow patient while in hospital as appropriate. Goals (to be achieved by discharge from acute care): Patient will perform grooming with Distant supervision Patient will dress upper body with Distant supervision Patient will dress lower body with Distant supervision Patient will perform bed mobility with Distant supervision Patient will perform bathing with Distant supervision Patient will perform toileting with Distant supervision Patient will perform bed transfers with Distant supervision Patient will perform commode transfers with Distant supervision PLAN: Continue with Plan as per Initial Evaluation. Sweetie Meléndez OT NA = Not Assessed, I = Independent, NE = Modified Independent, Sup = Supervised, Set up = Physical Assistance for Set-up Only, Min = Minimal Assistance, Mod = Moderate Assistance, Max = Max assistance; Dep = Dependent; AROM = Active Range of Motion;PROM=Passive Range of Motion; MMT = Manual Muscle Test; Shld= Shoulder; Add = Adduction; Abd = Abduction PHYSICAL THERAPY PROGRESS SUMMARY Patient seen from 1420 to 1443 on GC5e unit for 23 minute treatment. SUBJECTIVE: Patient Subjective/Goals: I don't know what happened. Pt states when asked why she's in the hospital OBJECTIVE: Appearance: pt in chair w/ aspen c-collar and torso support intact Behavior: alert,cooperative, [place], grossly oriented x 3, Pain: Site/Location: pt does not report pain Therex- AP 1x10 LAQ 1x10 Mobility NA Dep Max Mod Min CG CS DS NE I Comment Rolling L and R x Bed flat Use of rail Sit to/from stand x x CGA from bedside chair Joel from toilet Walking on level surface x ~10 feet and ~ 25 feet x 2 with rolling walker Gait Analysis: vc's to keep feet closer to walker, NBOS slow pace, decrease stability Stairs x Stand to sit x Sit to Supine x Functional Endurance: improving Patient/Family Education: Patient instructed in calling for nursing assist for any additional needs. Reviewed injuries and need for aspen c-collar . Patient up in bed with call light in reach. bed alarm and roll belt intact DME: With Patients permission ordered no equipment via upad Order. If any questions contact [facility] DME Provider at [phone]. 02/02/2024 6 Clicks Basic Mobility PT Difficulty turning over in bed 3 Difficulty sitting down and standing up from a chair with arms 3 Difficulty moving from lying on back to sitting on the side of the bed 3 Help from another person moving to and from bed to a chair 3 Help from another person to walk in hospital room 3 Help from another person climbing 3-5 steps with a railing 1 PT 6 Clicks Score 16 6 Click Score Guidelines: 1 - Total = Requires total assistance, or cannot do at all. 2 - A lot = Requires a lot of help (maximun to moderate assistance) Can use assistive devices. 3 - A little = Requires a little help (supervision, minimal assistance) Can use assistive devices. 4 - None = Does not require any help and does the activity independently. Can use assistive devices. ASSESSMENT: Recommend further therapy services in a Halfway Setting once medically cleared. Will continue to follow patient while in hospital as appropriate. Goals (to be achieved by discharge from acute care): Patient will achieve acceptable level of pain control to allow participation in therapy. Patient will increase bed mobility to close supervision Patient will perform sit to/from stand with rolling walker with close supervision Patient will ambulate 50 feet with rolling walker with close supervision Patient will increase ROM/Strength/Endurance/Balance to allow for above goals. Patient/Family independent with exercise program/precautions. PLAN: Will follow established Plan of Care Cecy Patel DELIO Beeper #[phone] NA = Not Assessed, I = Independent, NE = Modified Independent, Sup = Supervised, Set up = Physical Assistance for Set-up Only, Min = Minimal Assistance, Mod = Moderate Assistance, Max = Maximal assistance; Dep = Dependent; AROM = Active Range of Motion; PROM = Passive Range of Motion; MMT = Manual Muscle Test Music Therapy Note Referral Received. Chart reviewed; history noted. Thank you. Patient Identified by Wristband Narrative Note: Date/Time: 02/02/2024 at [id number]. Time spent: 18 minutes. Music Therapist (MT) entered room, found patient lying in bed, seemingly asleep, alone in room. Pt did not respond to the sound of her name. Pt was unable to consent due to somnolence. This session was an assessment. MT facilitated a live music listening experience as assessment. There were no observable responses to verbal stimuli and minimal responses to musical stimuli in harmonic and full song structure. Music used were in AB form to establish anticipation. Songs used were from pt's early adulthood to stimulate neurologic network. Music was delivered live with lyrics sung and accompanied with guitar that matched pt's respiratory. Observed some affective changes, movements in eye brows and eyes, but pt did not open eyes once throughout session. Will continue to assess. Goals Addressed: Assessment Music Intervention: Music listening Plan: Music Therapy will follow throughout hospitalization with 1-2 sessions per week. Please refer to Music Therapy Inpatient flowsheet for more data. Meryl Nava MM, MT-BC Music Therapist [place] [facility] [employer] Music Therapy Note Referral Received. Chart reviewed; history noted. Thank you. Patient Identified by Verbalizing name, Wristband, and With nurse Narrative Note: Date/Time: 01/30/2024 at [id number]. Time spent: 12 minutes. Music Therapist (MT) entered room, found patient lying in bed, resting with eyes closed, roll belt on, displaying flat affect, alone in room. When greeted, pt made appropriate eye contact and verbally responded, yet pt kept eyes closed during majority of session and spoke in a very soft volume. MT educated the role and risk/benefits of therapy. Pt consented to music therapy service. Upon assessment, pt seemed more somnolent today, required constant prompting to elicit verbal responses. MT facilitated a music listening experience to pt's self-identified preferred musical genre for cognitive stimulation. Pt responded to intervention with increased range of affect and increased level of engagement. Pt participated by mouthing lyrics to familiar songs but did not sing. Pt was observed to tap her feet, but the movement seemed random and did not match musical structure. Pt was cooperative, just requiring increased level of prompting to maintain engagement in interaction. Will continue to follow. Goals Addressed: Improved orientation as evidenced by: increased musical behavior within musical structure increased meaningful verbal interaction Improved mood as evidenced by: increased engagement Music Intervention: Music listening Plan: Music Therapy will follow throughout hospitalization with 1-2 sessions per week. Please refer to Music Therapy Inpatient flowsheet for more data. Meryl Nava MM, MT-BC Music Therapist [facility] [employer] OCCUPATIONAL THERAPY PROGRESS SUMMARY Patient seen from 839 to 09 on 5E unit for 25 minute treatment. SUBJECTIVE: Patient Subjective/Goals Good morning OBJECTIVE: Pain: No pain reported or noted Pain Relief Interventions Implemented: None required; No pain at this time Appearance: supine in bed upon arrival, IV, aspen collar, roll belt /Behavior: pleasant and agreeable to therapy, flat affect, minimally verbal Cognition: oriented to self. Unable to state current location/month/year. UE Status: BUE WFL for ADLS Self Care: Assistance Level NA Dep Max Mod Min CG CS DS NE I Set-Up Cues Comment Feeding x Anticipate Grooming/ Hygiene x Standing at sink to wash hands , wash face, complete oral care, and hair grooming. Min assist with hair grooming due to tangles. Able to complete other tasks with CS. Bathing: Upper Body x Simulated Bathing: Lower Body x Simulated EOB Dressing: Upper Body x Donning gown Dressing: Lower Body x Doff/dons socks. CGA provided due to mild LOB while threading socks Toileting x At toilet, completes hygiene/self care. Assist required in stand to manage brief over hips. Toilet Transfers x Sit <>toilet with use of grab bars Bed Transfer x Sit to stand from EOB with RW. Cues for technique /placement of BUE Bed Mobility x Supine to sit EOB via log roll technique. Assist at trunk for sidelying to sit. Functional mobility x Ambulate short household distance with RW, flexed posture. Decreased step length. Assist for RW management. Endurance for Self Care: Impaired Patient/Family Education: Instructed Patient in roles of therapy. Patient remained seated in bedside chair end of session. Chair alarm active.saba torso support and activity apron in place. Call ribeiro and telephone within reach. Patient instructed to call for staff assist when ready to return to bed and for all mobility. RN aware of patient location and mobility status. DME: With Patients permission ordered no equipment via upad Order. If any questions contact [facility] DME Provider at [phone]. 01/30/2024 6 Clicks Daily Activity OT Help from another person Eating meals 3 Help from another person taking care of personal grooming 3 Help from another person bathing 3 Help from another person putting on and taking off regular upper body clothing 3 Help from another person putting on and taking off regular lower body clothing 3 Help from another person toileting 3 OT 6 Clicks Score 18 6 Click Score Guidelines: 1 - Unable = Total/Dependent Assist 2 - A lot = Max/Moderate Assist 3 - A little = Minimum/Contact Guard Assist/Supervision 4 - Non = Modified [place]/Independent ASSESSMENT: ASSESSMENT: Recommend further therapy services in a Skilled Rehab Setting once medically cleared. Will continue to follow patient while in hospital as appropriate. Goals (to be achieved by discharge from acute care): ongoing Patient will perform grooming with Distant supervision Patient will dress upper body with Distant supervision Patient will dress lower body with Distant supervision Patient will perform bed mobility with Distant supervision Patient will perform bathing with Distant supervision Patient will perform toileting with Distant supervision Patient will perform bed transfers with Distant supervision Patient will perform commode transfers with Distant supervision PLAN: Continue with Plan as per Initial Evaluation. Jean Pierre Nieto OTR/L NA = Not Assessed, I = Independent, NE = Modified Independent, Sup = Supervised, Set up = Physical Assistance for Set-up Only, Min = Minimal Assistance, Mod = Moderate Assistance, Max = Max assistance; Dep = Dependent; AROM = Active Range of Motion;PROM=Passive Range of Motion; MMT = Manual Muscle Test; Shld= Shoulder; Add = Adduction; Abd = Abduction Associated Order(s): IP HEDIS SPECIALIST SERVICE REQUEST SPEECH-LANGUAGE PATHOLOGY RE-AL 5-708/2 Referral received, chart reviewed and history is noted. Time In: 914 Time Out: 926 Session Duration: 12 minutes Patient identified by patient/armband stating name and date of . Date of Admit: 01/28/24 Reason for Consult: post prandial emesis concern for dysphagia (per family not new) Patient currently on HEDIS SPECIALIST caseload with initial evaluation completed 01/27 History/Diagnosis: 83 year old female w/ pmh significant for a fib on warfarinn and plavix, mild dementia, CAD, CVA, HTN, and DM2 brought in by EMS from an outside hospital ([facility]) following an unwitnessed fall w/ a daignosis of a Type 2 Dens Fracture. 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 [place] unable to complete on 05/14/23 with neuro INJURIES: Type 2 Dens Fracture No past medical history on file. No past surgical history on file. Precautions: Delirium, Fall; DNRCCA-DNI Imaging: XR C-Spine 01/29/24 On the lateral view the C-spine is visible to the C5 level. The known odontoid fracture is questionably visible on the lateral view. There is loss of lordosis lower cervical spine and disc space narrowing and osteophytes at C5-6. The prevertebral soft tissues have normal contours. The bones are osteopenic. The left C3-4 neuroforamen is narrowed by bony encroachment. An implanted cardiac device is partially visualized. The aorta has wall calcifications. The lung apices are hyperinflated. Prior Level of Functioning: Per collateral information from family notes the following: gradual memory changes for 2 yrs, dx with dementia 1.5yr ago and a rapid decline over the past 3 months with withdrawal, staying in bed , self neglect, decreased interest in toileting grooming, loss of memory, forgetting family, not eating and increased difficulty with executive function, personality changes, no wandering , no behavioral disturbance, no Paranoia, but may have depression , sleeping all of the time not eating SUBJECTIVE: Patient subjective/goals: The patient was alert and cooperative throughout seated upright in chair with torso support. Busy apron present and within reach, calm visual/auditory stim playing on tv. Pain: Scale (if yes): 0/10 Location: N/A OBJECTIVE: Language/Cognition: IMP, but able to follow basic commands; Pragmatic Behavior: calm, cooperative. Current Diet -- Dentition Full upper and lower dentures Dental Repair Ill fitting dentures Oral Hygiene WFL Oxygen Requirement Room air SpO2 -- Temperature 97.9 Chest Imaging No current imaging of the aerodigestive tract. WBC WNL Clinical Assessment: Oral Motor Exam: Lingual ROM: Protrusion: + Elevation/depression: + Lateralization: + Labial ROM: Protrusion: + Retraction: + Patient administered all consistencies presented during this assessment. [place] Swallow Protocol: State: Alert; maintained across session Oral Mechanism Assessment: Tongue ROM: + Facial Symmetry: + Smile: + Pucker: + 3-ounce water swallow challenge: Positioning: Upright in chair Mode of administration: Straw, per patient preference Consecutive drinking of 3oz Thin water: Not achieved; patient self initiates discontinuation of drinking stating It's warm. I like cold water Cough/Throat Clear: (-) Absent . X FAIL: Inability to drink the entire 3 ounces (90cc)in sequential swallows due to stopping/starting or patient exhibits over signs of aspiration (I.e. coughing or choking, either during or immediately after completion) . PASS: Complete and uninterrupted drinking of all 3 ounces (90cc) of water without overt signs of aspiration (I.e. coughing or choking, either during or immediate after completion) *The [place] Swallow Protocol (YSP) is a standardized measure with high high sensitivity(96.5%) and negative prediction value (97.9%). Clinical Assessment Consistencies presented Puree: Applesauce via tsp x3 Soft/Regular Solid: 1/2 raj cracker Thin Liquid: Water via straw x~5oz Oral Phase - Adequate oral acceptance - Complete bolus breakdown - Functional oral transit - Full oral clearance achieved Pharyngeal Phase - Successive swallows were elicited - No gloria overt s/s of airway compromise exhibited - Audible swallows are frequently noted and paired with brief stress cue (facial grimace, eyebrow pinch, head pull back, ) - Vocal quality ? wet intermittent throughout thin liquid trials, not gurgled. RISK ASSESSMENT Dysphagia Risk Factors: Predisposing: Advanced age Dementia Clinical signs of possible chronic dysphagia: None Post prandial emesis Precipitating: UTI Type 2 Dens Fracture Osteophytes at C5-6 Factors contributing to aspiration related pulmonary complications: Given diminished pulmonary clearance, diminished immune response, and diminished bacteriological contents patient risk for aspiration related pulmonary complication is currently perceived to be low. Positive Impact Negative impact Pulmonary Clearance Medical Conditions (COPD, CHF, asthma) X Reduced function (reduced mobility/increased dependence for care) X Pulmonary health (h/o smoking, need for supplemental O2, need for inhaled medications) X Immune Response Nutritional Status X Medical co-morbidities X Presence of current infectious process X Bacteriological Contents Dependencies for oral care X Dental care/repair X Oral hygiene X Xerostomia X Diabetes X Acid Suppression therapy (PPI, H2 Blockers) X Education: The patient was educated on the results and recommendations of this evaluation. The patient will require additional education and caregiver involvement to demo understanding of educated material. ASSESSMENT: Diagnosis: Suspected esophageal dysphagia; ? Oropharyngeal component Impression: Bedside swallow evaluation conducted with administration of [place] Swallow Protocol (YSP) yielding 'fail' secondary to non consecutive consumption of target volume related to patient dislike for room temp water. Additional clinical assessment revealed multiple consecutive sips taken with intermittent audible swallows present indicative of reduced coordination. No gloria s/s of airway invasion are exhibited; however, question slight change in vocal quality with thin liquid sips intermittently. There is currently no aerodigestive tract imaging available for review and no documented c/f pulmonary infection. Patient appears to be at a low-moderate risk for dysphagia given these findings paired with multiple dysphagia risk factors. Given diminished pulmonary clearance, diminished immune response, and diminished bacteriological contents patient risk for aspiration related pulmonary complication is currently perceived to be low (please see chart above for impacting factors). Given these consideration would suggest initiation of Dysphagia Diet Level 3-Mechanically Advanced/thin consistency diet with set up assist and intermittent supervision. An instrumental swallow via MBS may be beneficial in r/o airway invasion with PO intake given heightened risk with presence of C5-6 osteophytes and subtle s/sx of oropharyngeal incoordination. If this does not align with patient GOC, then would suggest ongoing clinical monitoring of diet tolerance and pulmonary health for early detection of potential aspiration. Would suggest considering GI workup for suspected esophageal phase dysphagia given h/o prandial emesis should patient/family wish to further assess this issue. PLAN: Treatment Modalities: dysphagia Frequency: 1-2x f/u for diet tolerance and plan Goals: Short Term Goals (to be achieved by discharge from hospital): The patient will participate in MBS to define current swallow function and to guide an evidenced based treatment plan. The patient will consume Dysphagia Diet Level 3-Mechanically Advanced/thin consistency diet utilizing aspiration precautions and compensatory strategies without clinical indication of decline in cardiopulmonary status across 3-5< days. The patient/caregiver/family will demonstrate adequate return of knowledge of all compensatory strategy/instruction to effectively assist the patient in immediate safety with oral intake and swallowing. Prognosis: (+) Cooperation (-) Age (+) Family/caregiver support (-) Cognitive impairments (-) Presence of co-morbidities Recommendations: - May consider completion of instrumental assessment via MBS to r/o airway invasion vs close clinical monitoring of pulmonary status - Suggest considering GI workup for suspected esophageal dysphagia given h/o post prandial emesis - Dysphagia Advanced solids-Level 3 and Thin Liquids - Should patient exhibit pocketing or high volumes of oral residuals, please make the appropriate downgrade to either mechanical soft or puree solids. - Administer medications whole or crushed in puree base/carrier small bites, small sips, slow rate, OOB to chair at 90 degree angle when able; otherwise, upright at 60< degree angle for all PO intake - Rigorous oral care Q3-4 with suction toothbrush kit in order to promote moistening of mucosa and reduce risk for colonization of oropharyngeal bacteria - Patient would benefit from trial of denture adhesive to improve denture fit and mastication quality *This service will be billed as a treatment session given prior bedside swallow evaluation completed and no documented decline in status to warranted a new comprehensive Evaluation' Jeri Burris CCC-HEDIS SPECIALIST, MS-CCC/HEDIS SPECIALIST Speech and Language Pathologist Secure chat preferred ([phone] M,T,TH, F) Pager [phone] Physical Therapy Attempted to see pt for tx at 15:33 however, pt was off floor at radiology. Will re-attempt as able and continue to follow pt per POC. Ingris Le PT, DPT Associated Order(s): NUTRITION NEW CONSULT Images from the original note were not included. Initial Adult Inpatient Nutrition Assessment Reason for Visit: Consult: 83yo iwth 19 lb wt loss when on ozempic and aricept, worsenign dementia, falls weakness Nutrition Assessment: Admitting Diagnosis: TRAUMA- Fall No past medical history on file. is allergic to: Not on File Nutritionally Significant Meds: vitamin D, colace, lasix, senna, LR @ 75 cc/hr Labs: Basic Metabolic Panel 01/29/2024 01/28/2024 3:43 AM 3:19 AM Na 141 138 K 3.7 4.7 Cl 102 100 CO2 28 27 Gap 15 16 Glu 109 190 BUN 15 19 Cr 0.95 1.26 Ca 8.7 8.8 CBC (last 3 years, up to 8 values) 01/29/2024 01/28/2024 3:43 AM 3:07 AM WBC 11.7 17.0 RBC 4.74 4.77 Hgb 13.4 13.3 Hct 40.5 40.4 MCV 86 85 RDW 15.6 15.5 Plt 344 368 WBC/Diff 01/28/2024 3:07 AM Neutro% 93.7 Lymphs% 3.5 Monos% 2.5 Eos% 0.1 Basos% 0.3 Fingerstick Glucose (last 72 hours) Glucose 01/29/24 1154 188 01/29/24 0757 108 01/28/24 2045 147 01/28/24 1530 121 01/28/24 1138 108 01/28/24 0811 123 Vital sign ranges over the past 24 hours (retrieved 01/29/2024 at 2:37 PM): Tmax (24 hours): 98.8 F (37.1 C) Pulse Av.7 Min: 77 Max: 116 Systolic (24hrs), Av , Min:122 , Max:143 Diastolic (24hrs), Av, Min:44, Max:76 MAP (mmHg) Av.3 mmHg Min: 68 mmHg Max: 90 mmHg Resp Av.7 Min: 17 Max: 18 SpO2 Av.7 % Min: 98 % Max: 100 % Intake/Output Summary (Last 24 hours) at 01/29/2024 1437 Last data filed at 01/29/2024 0900 Gross per 24 hour Intake 1081.25 ml Output 700 ml Net 381.25 ml Diet Order: puree, Boost GC Max Height: 5' 4 Weight: 47.6 kg IBW: 55 kg %IBW: 87 BMI: 18.02: Underweight Nutrition Focused Physical Exam: not performed, Pt OOR Edema: none Hair/Nails/Skin: intact Estimated needs: 4394-7436 kcal/d 30-35 kcal/kg 57-72 g pro/d 1.2-1.5 g pro/kg 1440 cc/d 30 cc/kg Assessment: 83 year old year old female with a history of atrial fib on warfarin, CAD, CVA , HTN type 2 DM, ( a1 c? ) mild to moderate dementia, anxiety with hx of falls, recently with head strike 3 wk prior to this admission, who was found down at home unwitnessed fall and taken to [facility], unable to recall the event, became nauseated, and INR 2.85, UA suggestive of UTI, given rocephen x 1, and CTN was not done prior to transfer to ED was category 2 trauma, f presenting to ED on 01/28/2024 for dx of type 2 Dens fracture. Nutrition consulted for weight loss. Pt currently off the floor for standing x-ray. She is currently on puree diet per HEDIS SPECIALIST recs, with hopes of upgrading after standing xray results. No n/v/d/c. Limited weight hx to assess. BMI indicating underweight. She is receiving Boost GC Max with meals, please continue. See recs below, thank you for the consult. ? Nutrition Problems: 1. Concern for malnutrition, pending NFPE Nutrition Interventions: 1. Diet Per HEDIS SPECIALIST recs, upgrade as feasible Continue Boost GC Max TID Family has provided list of foods she likes 2. Nursing updated regarding ordering puree foods in [facility] Will continue to follow Edgar Kim RD, LD Personal Pager [phone] Automatic Door Mechanic Pager: [phone] Associated Order(s): IP MUSIC THERAPY SERVICE REQUEST Music Therapy Note Referral Received. Chart reviewed; history noted. Thank you. Patient Identified by Verbalizing name and With nurse Date/Time: 01/29/2024 at [phone]. Time spent: 23 minutes. Music Therapist (MT) entered room, found patient was about to be transported to radiology. MT introduced service, including potential goals and risks/benefits to the three family members in the room - daughter, [id number], and son. We discussed ways to engage pt at home or at SNF, including putting family pictures up, setting routines, talking about mutual memories, and making sure pt has access to hearing aides, dentures, and glasses. Will continue to follow. Meryl Nava MM, JAMIL Music Therapist [facility] [employer] [facility] Associated Order(s): IP ART THERAPY SERVICE REQUEST Art Therapy Note Referral received. Chart reviewed, history noted. Thank you. Patient identified by Verbalizing name HIPAA - Verbal permission granted from patient to discuss case, including protected health information, in front of family / friends in room at the time of session. Narrative Note: Date/Time: 01/29/2024 to 1216 to 1225 Time Spent: 9 minutes Art Therapist (AT) entered room to introduce art therapy service to patient and for initial assessment. AT found patient in room with 3 visitors at bedside. AT introduced self to patient and visitors. AT explained role of art therapy service along with risks and benefits to patient and visitors. Patient displayed appropriate affect with good eye contact. AT discussed with patient preferences for art making. Patient was agreeable for art making at a later time. AT answered questions about role of art therapy from patient visitors. AT left patient for time/privacy with visitors. Will continue to follow. Goals Addressed: Improved overall mood/anxiety management/emotion management as evidenced by: increased positive verbalizations Plan: Art therapy will follow patient focusing on Art Plan List: enhancing adjustment to hospitalization/medical situation and enhancing positive coping strategies Patient will be seen 1-2 times per week. Please refer to Art Therapy flowsheet for more data. Sloane Pruitt MA, ATR-BC Art Therapist, [facility] [email or web address] Associated Order(s): IP GERIATRIC CONSULT Images from the original note were not included. GERIATRIC CONSULTATION Patient Name: Bernardino Guzman Location: [place] [address] Attending: Tyree Muñoz MD PCP: No primary care provider on file. Apurva Tatum [phone] = pCP [facility] Medicine team has been consulted to provide recommendations for the following problem(s): Evaluate older adult with co-morbid medical problems and recent trauma Evaluate cognitive problems - delirium, dementia, and/or depression Multiple medications effecting the older adult Our opinion has been requested to help clarify the presenting problem(s) and provide medication evaluation and recommendations, disease management recommendations, and recommendations for an appropriate plan of care. The following note reflects my opinion and services performed, as well as recommendations pertaining to treatments, medications and post-acute care History was obtained by: discussion with patient's family/responsible alliance party - reliable historian discussion with nursing staff and review of chart review of hospital chart review of transfer information discussion with other physician or health care provider: andreea currie patient is NOT a reliable historian CC: I am ok I am home HIPAA: Verbal permission granted from patient to discuss case, including protected health information, in front of family / friends in room at the time of the evaluation. Hr Generalist: Not needed - patient preferred language is [place] HPI:, 83 year old year old female with a history of atrial fib on warfarin, CAD, CVA , HTN type 2 DM, ( a1 c? ) mild to moderate dementia, anxiety with hx of falls, recently with head strike 3 wk prior to this admission, who was found down at home unwitnessed fall and taken to [facility], unable to recall the event, became nauseated, and INR 2.85, UA suggestive of UTI, given rocephen x 1, and CTN was not done prior to transfer to ED was category 2 trauma, f presenting to ED on 01/28/2024 for dx of type 2 Dens fracture. Neurosurg consulted and their assessment follows; aSSESSMENT/PLAN: Pt is an 83 yo F with PMH afib, HTN, HLD, CKD, PAD (ASA & Plavix), DM, prior CVA who presents s/p FFS after slipping at her house. Upon arrival to OSH a CT C-spine was conducted which shows a Type 2 odontoid fracture for which patient was transferred to [facility] and NSGY was consulted. -No acute neurosurgical intervention -Maintain C-collar at all times -Recommend C-spine upright X-rays (including odontoid view) -Further recs pending completion of imaging Above plan was discussed with the (Chief) within 30 minutes of consult and discussed with the staff Dr. Emilia Hua, PARamsesC Reason for consult: delirium , dementia PT saw pt ; ambulated 20 ft with min assist , slow, unsteady , verbal cues , recommending [facility] OT saw pt decreased step length, flexed, min assist to return to supine position HEDIS SPECIALIST saw pt ; ASSESSMENT: Diagnosis: no overt s/s of cardiopulmonary distress/decline Impression: Dysphagia: A clinical swallow evaluation is completed at bedside. [place] Swallow Protocol deferred d/t only small amounts of PO allowed per medical team. Patient presents with no overt s/s of cardiopulmonary distress/decline with PO throughout session. The patient has low risk factors for developing aspiration related complications. Instrumental swallowing assessment is not indicated at this time though HEDIS SPECIALIST to monitor need pending possible cervical injury. Cautiously recommend Dysphagia Level 1 Puree Diet with Thin Liquids. HEDIS SPECIALIST to re-evaluate next date with greater amount of PO trials (only cleared for small amounts this date). HEDIS SPECIALIST to follow with POC. It Operations Specialist saw pt ; low BMI 18.02. GERIATRIC ASSESSMENT: Cognitive Status: Alert, fluctuating level of consciousness, disoriented, moderate dementia, and delirious Per dtr ; pt had progressive memory problems and would just want to sit , stopped reading , watching tv going out and for past 2-3 months just wants to stay in bed and sleep 03/[address] [facility] memory specialist and dx with(per dtr report) frontotemporal lobe dementia and prescribed aricept 10mg/d about a yr ago. Dtr states pt has declines a lot in past 3 months functionally and physically despite the meds. Now does not wish to bath or change depends, does not eat , talking less. Keeps eyes closed more and has become so weak needs to be reminded to lift up feet to walk , feed herself. 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 Slow to eat Weight change: lost Bowel/bladder function: incontinent of bladder wears depends. Continent of stool Vision/Hearing impairment: yes but stopped wearing eye glasses , no hearing issues Ambulation: independent without device Falls: 3 in last 2 wk first one was when she fell backwards and hit her head. Dtr did not take her to ER or call 911 despite pt being on coumadin because pt declined to go to hospital, the other fall was a trip, pt walking with a shuffling gait and has to be reminded to pepper picker her feet, she moves the walker forward but not her feet. Did well in a snf 1.5 yr ago and had home PT but declined functionally since then Pt is alone and fell prior to admission unwitnessed, found down after a few hours Pain: denies CORTEZ, neck or back pain Change in ADLs: declining ADL over past yr ADL prior to ADmission Dressing: independent most of time sometime needs assistance Grooming: reminders , jndependent Bathing: dependent Toileting: minimal assistance Continence: dependent Feeding: independent Transfers: independent IADL prior to admission Transportation: dependent Grocery shopping: dependent Meal preparation: dependent Housecleaning: dependent Laundry: dependent Finances: dependent, pt signs check dtr fills it out Telephone use: dependent Medications: dependent dtr puts them in pill retail planner and gives them to her , Pt monitors her own bg on cgm Advance Care Planning: Code Status: Full Code Living Will: Yes Health Care Power of Industrial Hygiene Manager: Yes but not in media marketing manager Socorro Franklin ([phone]) , [address] [place] [address] Dtr is not sure what the forms say and will bring them in tomorrow for a goals of care discussion at 10am Review of Systems: Review of Systems Unable to perform ROS: Mental acuity HENT: Negative for hearing loss. Respiratory: Negative for shortness of breath. Cardiovascular: Negative for chest pain. Gastrointestinal: Negative for abdominal pain. Musculoskeletal: Negative for back pain and neck pain. Neurological: Negative for headaches. Social History: Living Situation: lives alone , has 4 hours of CARE NAVIGATOR most days and other family rotate in and out, but pt alone most of day/night Marital status: Number of children: 5 one of covid Primary Caregiver: socorro lawrence Supportive family or social network: yes Receiving community services: Yes Substance use:no Tobacco Use Smoking status: Never Smokeless tobacco: Never Substance Use Topics Alcohol use: Never Comment: Caffeine intake: 1-2 cups per day coffee Social Determinants of Health Tobacco Use: Low Risk (12/30/2023) Received from [facility] Patient History Smoking Tobacco Use: Never Smokeless Tobacco Use: Never Passive Exposure: Not on file Alcohol Use: Not on file Financial Resource Strain: Not on file Food Insecurity: Not on file Transportation Needs: Not on file Physical Activity: Not on file Stress: Not on file Social Connections: Not on file Intimate Partner Violence: Not on file Depression: Not at risk (01/03/2023) Received from [facility] PHQ-2 Patient Health Questionnaire-2 Score: 1 Housing Stability: Not on file Utilities: Not on file Family History: neg for dementia No family history on file. Diabetes Mother Cancer Father Past Medical History: No past medical history on file. Past Medical History: Diagnosis Date Arthritis Atrial fibrillation (CMS/HCC) CAD (coronary artery disease) ([facility]/HCC) CVA (cerebral vascular accident) ([facility]/HCC) Diabetes ([facility]/HCC) Gallbladder disease Heart disease Hypertension ([facility]/HCC) Kidney disease Peripheral vascular disease ([facility]/HCC) Stroke ([facility]/HCC) Type 2 diabetes mellitus ([facility]/HCC) Past Surgical History: No past surgical history on file. Past Surgical History: Procedure Laterality Date A-V CARDIAC PACEMAKER INSERTION CARPAL TUNNEL RELEASE Left right- 02/08/20 CHOLECYSTECTOMY COLOSTOMY 1999 GALLBLADDER HYSTERECTOMY INSERT / REPLACE / REMOVE PACEMAKER OTHER SURGICAL HISTORY 2010 LIPITOR VEIN SURGERY Bilateral Home Medications: Dtr reports aricept is 10mg d/ Tylenol prn Asa 81mg D fiber pill Lasix 20mg every other day Vit d 1000 international units Diltiazem 180mg /d Ozemic 1mg /d Warfarin 2mg /d (Seroquel is not on home med list) No current facility-administered medications on file prior to encounter. Current Outpatient Medications on File Prior to Encounter Medication Sig Dispense Refill Cholecalciferol (Vitamin D3) 25 MCG (1000 UT) CAPS Take 25 mcg by mouth daily. diltiazem (Dilt-XR) 120 MG XR capsule Take 120 mg by mouth at bedtime. donepezil (ARICEPT) 5 MG tablet Take 5 mg by mouth at bedtime. furosemide (LASIX) 20 MG tablet Take 20 mg by mouth every other day. hydrOXYzine pamoate (VISTARIL) 25 MG capsule Take 25 mg by mouth at bedtime. lisinopril (ZESTRIL) 2.5 MG tablet Take 2.5 mg by mouth daily. QUEtiapine (SEROQUEL) 25 MG tablet Take 25 mg by mouth at bedtime. simvastatin (ZOCOR) 40 MG tablet Take 40 mg by mouth daily. at bedtime warfarin (COUMADIN) 2 MG tablet Take 2 mg by mouth daily. Current Medications: Current Facility-Administered Medications: acetaminophen (TYLENOL) tablet, 1,000 mg, Oral, Q6H PRN, Nic Kennedy MD oxyCODONE immediate release tablet, 2.5 mg, Oral, Q4H PRN, Nic Kennedy MD oxyCODONE immediate release tablet, 5 mg, Oral, Q4H PRN, Nic Kennedy MD lisinopril (ZESTRIL) tablet, 2.5 mg, Oral, Daily, Astrid Conrad DO, 2.5 mg at 01/28/24 0900 diltiazem (CARDIZEM CD) 24 hour capsule, 120 mg, Oral, At Bedtime, Astrid Conrad DO furosemide (LASIX) tablet, 20 mg, Oral, Q48H, Astrid Conrad DO, 20 mg at 01/28/24 0900 donepezil (ARICEPT) tablet, 5 mg, Oral, At Bedtime, Astrid Conrad, hydrOXYzine (ATARAX) tablet, 25 mg, Oral, At Bedtime, Astrid Conrad, cholecalciferol (VITAMIN D3) tablet, 25 mcg, Oral, Daily, Astrid Conrad DO, 1,000 Units at 01/28/24 0900 pravastatin (PRAVACHOL) tablet, 80 mg, Oral, Daily, Astrid Conrad DO, 80 mg at 01/28/24 0900 QUEtiapine (SEROQUEL) tablet, 25 mg, Oral, At Bedtime, Astrid Conrad, docusate sodium (COLACE) capsule, 100 mg, Oral, 2x Daily, Nic Kennedy MD, 100 mg at 01/28/24 0900 senna (SENOKOT) tablet, 8.6 mg, Oral, At Bedtime, Nic Kennedy MD bisacodyl (DULCOLAX) 5 MG enteric coated tablet, 10 mg, Oral, Daily PRN, Nic Kennedy MD lactated ringers iv infusion, , Intravenous, Continuous, Nic Kennedy MD, Last Rate: 75 mL/hr at 01/28/24 0915, New Bag at 01/28/24 0915 cefTRIAXone (ROCEPHIN) 1,000 mg in dextrose 50 mL ivpb, 1,000 mg, Intravenous, Q24H Antibiotic, Astrid Conrad DO, 1,000 mg at 01/28/24 1623 Medications related to this geriatric consult : Oxycodone 2.5mg to 5mg q 4hour prn none Seroquel just ordered 25mg by primary team Atarax jurst ordered by primary team Allergies: Not on File Physical Examination: Weight history: 111 lbs - November 2023; 114 lbs - October 2023; 121 lbs - Jul 2023 124 lbs - January 2023 per Care Everywhere Weight Only Weight 01/28/2024 3:09 AM 105 lb 19 lb wt loss since July Last ekg QTc no EKG in media marketing manager BP 116/49 (BP Location: right arm) Pulse 71 Temp 99.1 F (37.3 C) (Oral) Resp 18 Ht 5' 4 (1.626 m) Wt 105 lb (47.6 kg) SpO2 98% BMI 18.02 kg/m OBJECTIVE: BP 116/49 (BP Location: right arm) Pulse 71 Temp 99.1 F (37.3 C) (Oral) Resp 18 Ht 5' 4 (1.626 m) Wt 105 lb (47.6 kg) SpO2 98% BMI 18.02 kg/m Physical Exam Vitals and nursing note reviewed. Constitutional: General: She is not in acute distress. Appearance: She is not toxic-appearing or diaphoretic. Comments: Chronically ill appearing elderly female pale lying In dark room in bed wearing aspen collar, keeps eyes closed most of time, but later opened them identified dtr and granddtr with a little difficulty , paucity of speech HENT: Head: Atraumatic. Comments: Temporal wasting Oral mucosa dry Speech soft Hearing intact Nose: Nose normal. Eyes: General: No scleral icterus. Conjunctiva/sclera: Conjunctivae normal. Neck: Comments: Did not remove aspen collar to assess neck Cardiovascular: Rate and Rhythm: Normal rate and regular rhythm. Heart sounds: Normal heart sounds. No murmur heard. No gallop. Pulmonary: Effort: Pulmonary effort is normal. No respiratory distress. Breath sounds: Normal breath sounds. No stridor. No wheezing, rhonchi or rales. Abdominal: General: Bowel sounds are normal. There is distension. Palpations: There is no mass. Tenderness: There is no abdominal tenderness. There is no right CVA tenderness, left CVA tenderness or guarding. Comments: Suprapubic fullness Pure wick cannister dry Genitourinary: General: Normal vulva. Rectum: Normal. Musculoskeletal: General: No swelling or deformity. Right lower leg: No edema. Left lower leg: No edema. Skin: Coloration: Skin is pale. Skin is not jaundiced. Findings: Bruising present. Neurological: Mental Status: She is alert. She is confused. GCS: GCS eye subscore is 4. GCS verbal subscore is 4. GCS motor subscore is 6. Cranial Nerves: No cranial nerve deficit, dysarthria or facial asymmetry. Sensory: Sensation is intact. Motor: Weakness and atrophy present. No tremor, abnormal muscle tone or seizure activity. Comments: Did not assess gait Neg cogwheel rigidity Slow to answer questions and respond Paucity of speech Neg bradykinesia Neg masked facies ? Psychiatric: Attention and Perception: She is inattentive. She does not perceive auditory or visual hallucinations. Mood and Affect: Affect is blunt. Speech: Speech is delayed. Behavior: Behavior is slowed and withdrawn. Behavior is cooperative. Thought Content: Thought content is not paranoid or delusional. Thought content does not include homicidal or suicidal ideation. Thought content does not include homicidal or suicidal plan. Cognition and Memory: Cognition is impaired. Judgment: Judgment is not impulsive or inappropriate. Comments: UB CAM + for delirium in all domains Thinks she is at home Oriented to person dtr , granddtr Cannot recall she is in hospital or why she is here Even after re-orientation Not oriented to day date month, oriented to yr Not to potus; martha Cannot say days of wk backwards Abbott diagnostic studies personally reviewed: CBC 01/28/2024 3:07 AM WBC 17.0 RBC 4.77 Hgb 13.3 Hct 40.4 MCV 85 RDW 15.5 Plt 368 BMP (last 1 year, up to 8 values) 01/28/2024 3:19 AM Na 138 K 4.7 Cl 100 CO2 27 Gap 16 Glu 190 BUN 19 Cr 1.26 Ca 8.8 eGFR 42 LFT's (last 3 years, up to 8 values) No lab values to display. TSH No lab values to display. No results found for: B12 , VITD25 01/28/2024 3:07 AM 01/28/2024 3:19 AM HIV Ag-Ab Screen Non-Reactive Lactate 1.4 No results found for: HBA1C Fingerstick Glucose (last 72 hours) Glucose 01/28/24 1530 121 01/28/24 1138 108 01/28/24 0811 123 Imaging personally reviewed and agree with the findings of the radiologist No results found for this or any previous visit. CTAneck 01/28/24 FINDINGS: Aortic Arch: Aortic atherosclerotic calcification with this extends into the origins of the branch vessels. Moderate atherosclerotic stenosis of the proximal bilateral subclavian arteries. Carotid Arteries Right Common Carotid: Mild to moderate scattered atherosclerotic stenoses. Right Internal Carotid: Atherosclerotic plaque in the bulb and proximal ICA produces severe (>70%) ICA stenosis. Left Common Carotid: Mild scattered atherosclerotic stenoses. Left Internal Carotid: Atherosclerotic plaque in the bulb and proximal ICA produces severe (>70%) ICA stenosis. Vertebral Arteries: Moderate atherosclerotic stenosis of the proximal left vertebral artery. Severe stenosis at the origin of the right vertebral artery. Bilateral proximal intradural vertebral arteries demonstrate moderate atherosclerotic stenosis. Other: Minimally displaced type II odontoid fracture and comminuted fracture of the basion. Associated small volume epidural hematoma extending from the craniocervical junction to C3-C4 and causes abutment of the anterior cord at the cervicomedullary junction. No evidence of a soft tissue mass or lymphadenopathy in the neck or superior mediastinum. 2-3 mm nodules seen in the bilateral peripheral lung apices. IMPRESSION: No evidence of significant cerebrovascular injury. Advanced atherosclerotic disease resulting in severe stenosis ( >70%) of the proximal ICAs and severe stenosis at the right vertebral artery origin. Unable to see CTH from 01/27/24 CTH 05/08/23 COMPARISON: 11/12/2022. TECHNIQUE: Routine. All CT scans at this facility use dose modulation, iterative reconstruction, and/or weight based dosing when appropriate to reduce radiation dose to as low as reasonably achievable. FINDINGS: There is no intracranial hemorrhage, mass effect, midline shift, extra-axial collection, evidence of hydrocephalus, skull fracture, or a recent ischemic infarct identified. A small chronic right basal ganglia/vadlez radiata lacunar infarct, mild generalized cerebral volume loss, and mild patchy supratentorial white matter changes are again noted. The mastoid air cells and visualized paranasal sinuses are essentially clear. 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, possibly Alzheimers without behavioral disturbance, plus vascular as hx of lacunar infarct, vs primary progressive aphasia due to limited verbal output, # severe stenosis of proximal ICAs and severe stenosis of rt vertebral artery # acute delirium due to trauma and uti and hospitalization sleep deprivation Per collateral information from family notes the following: gradual memory changes for 2 yrs, dx with dementia 1.5yr ago and a rapid decline over the past 3 months with withdrawal, staying in bed , self neglect, decreased interest in toileting grooming, loss of memory, forgetting family, not eating and increased difficulty with executive function, personality changes, no wandering , no behavioral disturbance, no Paranoia, but may have depression , sleeping all of the time not eating - neg family hx of dementia - I reviewed the report for imaging at [facility] but could not view imaging - reviewed the CTA neck which shows; Advanced atherosclerotic disease resulting in severe stenosis ( >70%) of the proximal ICAs and severe stenosis at the right vertebral artery origin. Per neuro note on 12/11/23 by john Hensley CHARGING MACHINE OPERATOR in italics CT of the brain without contrast at [facility] on 05/08/23: No acute intracranial process or significant change from 11/12/22. 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 Vitamin B12 and TSH at [facility] on 04/16/23: Unremarkable. Mild dementia, unspecified dementia type, unspecified whether behavioral, psychotic, or mood disturbance or anxiety (CMS/HCC) It is my impression that the patient has dementia which may represent Alzheimer's disease. Daughters report progressive cognitive decline in the patient. They also report the patient has lost interest in many of her prior hobbies such as watching western movies. There has been suspicion for concurrent primary progressive aphasia, as the patient has limited verbal output. 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 However, I would also consider pseudodementia and possible depression contributing to her symptoms. The patient denies depression. CT of the brain on 05/08/23 identified mild generalized cerebral volume loss, white matter changes, and a small chronic lacunar infarct. Vitamin B12 level and TSH on 04/16/23 were unremarkable. Donepezil was not tolerated due to GI distress. Seroquel has seemingly improved her visual hallucinations and sleep. PLAN: - Increase Seroquel 25 mg by mouth once a day at bedtime. I have discussed potential side effects of this medication (including cardiovascular effects and increased mortality risk) with the patient and daughter. They accept these risks from a quality of life perspective understanding that the patient could suffer life-threatening side effects to this medication, and they wish to continue. - Sleep hygiene, brain stimulation, physical activity, healthy diet and compensatory memory techniques discussed - I advised the patient and her daughter that I recommended NO driving and 03/02 supervision of the patient for safety purposes. They verbalize understanding. I discussed potential safety risks of leaving the patient unsupervised including accidental injury - Consideration has been given to neuropsych evaluation, but I do not believe the patient would not be able to tolerate testing given her inability to complete a MOCA - prior cognitive testing . [place] unable to complete on 05/14/23 with neuro - recommend TSH, B12 syphilis - HEDIS SPECIALIST for cognitive-linguistic evaluation cognition, already following -WBc is 17 , antibx for UTI per primary team - sodium is 138 stable - creat 1.26 baseline - agree with decrease aricept from 10mg to 5mg and recommend consider tapering down further over a month as pt lost almost 20lb and aricept can cause bradycardia syncope and anorexia - recommend decrease seroquel to 12.5mg if it is absolutely needed. Pt sleeps all day and all night at home and this is sedating And family confirm she was not taking this at home. - avoid antipsychotics if possible -ordered music and art therapy - discussed with dtr that pt lacks insight into her deficits and has declined cognitively and functionally and cannot safely make a decision re; not going to hospital after a head strike on coumadin. She likely will not be able to make a safe decision re; discharge and care needs after snf. Recommended discussing snf /AL memory unit etc, or increased home services. -continue Delirium Precautions; - recommend adding Melatonin 3 mg at 1900 to restore sleep/wake cycle ordered, pt worked nights her whole life and is used to being up at night - Encourage behavioral modification, redirection, support from family members, perceptual needs should be met before use of chemical restraints - Minimize use of physical restraints whenever possible - Provide environmental cues (clock, calender, names of care providers where the patient can see them clearly). - [place] patient repeatedly throughout the day (clocks, calenders, soft lighting) - Sleep hygiene: minimize sedatives, particularly benzodiazepines - Pain control: Optimize non-narcotic strategies and minimize opiate load if tolerable - Avoid benzodiazepines, antihistamines and anticholinergic medications. - Constipation: please provide appropriate bowel regimen if not already scheduled. - Manage patient's environment with frequent reorientation, reduced sensory stimulation, and family at their bedside. - Shades up at 8 am and down at 8 pm. Lights on during daytime to help facilitate normal sleep cycle. - Mobilize out of bed to bathroom whenever possible and up to chair at least twice a day especially for meals - Patient may use home sensory aids (glasses, hearing aids, and walker within reach) - Low lighting and minimize ambient noise and interruptions at night - Maintain Potassium above 4 and Magnesium above 2 - Fall precautions in place - Maintain pulse O2 > 95 % #History of falls # Generalized weakness # type 2 DENs fx # impaired functional mobility gait endurance and balance - PT/OT progressive ambulation - up to chair for meals and toileting - discussed snf with family - Discussed risk of head bleed with falls on anticoagulation and proper action to take ie ED - discussed issues home safety due to dementia, pt needs care 03/02 , referred her to [facility] #Reduced appetite, #Unintentional weight loss 19 lb in 6 months , BMI is 18.02 #dysphagia - nutrition evaluation ordered, - weekly wt - TSH, B12, - supplement ordered tid - HEDIS SPECIALIST for swallow evaluation already ordered and recommends dysphagia pureed level 1 thin - assist with meals, dtr will write food suggestions to order , pt will not be able to order - recommended taper off aricept slowly over a month - recommend stop ozempic as this may be precipitating wt loss as well as aricept - family discussion tomorrow re; goals of care and they are looking for documents # Adjustment reaction with depressed mood and anxiety - pt withdrawn, losing wt, loss of interest, new VH , concern for depression , - would recommend remeron for sleep 15mg as it may help with mood sleep and appetite ,and monitor closely for oversedation - would not put her on remeron if on seroquel . -music art therapy - has living will and hcpoa Medication management - current and outpatient medication list reviewed - EKG to assess QTc and for bradycardia ordered for tomorrow - recommend melatonin 3mg /d to help with sleep cycle , ordered - recommend avoid seroquel if possible as increased risk of prolonged QTc and cva in elderly with dementia, if needed use lowest dose 12.5mg at 8pm with melatonin - agree with decrease aricept to 5mg with plan to taper off over a month , 5mg x 2 wk, 2.5mg x 2 wk - avoid anticholinergic meds , minimize opiods -avoid antisychotics and benzodiazepines - avoid trulicity and ozempic due to excessive wt loss and risk hypoglycemia Discharge planning - tentative discharge plan is snf Thank you for the consultation and allowing the Geriatric Medicine service to work with you for the benefit of your older patient. I spent a total of 105 minutes spent providing patient care on 01/28/24 38 minutes meeting with dtr and discussing dementia , depression delirium , measures to take to decrease delirum, Discussed need for more supervision when home ie 03/02 care, Reviewed recommended med changes using shared decision making and discussed stopping ozempic /trulicitiy Reviewed labs UB cam done [facility] nurse to discuss recommendations Ordered wtly wt nutrition Ordered delirium precautions music therapy art therapy , melatonin Ordered EKG to assess QTc Ordered syphilis to be added on Reviewed care everywhere Time-based billing justifications: Reviewing (chart, labs, and other clinical notes) Obtaining history (or reviewing separately obtained history) Patient visit (including performing a medically appropriate exam) Counseling/educating the patient/family/caregiver Ordering (medications, tests, procedures - including independent interpretation of results when not reported separately) Referring/communicating with other health assisted living care manager - when not reported separately Charting in [facility] I have personally reviewed the [employer] consultant notes, nursing notes, therapy and allied healthcare provider notes, labarotary tests and imaging/radiological tests. I have obtained pertinent history from the patient and/or surrogate including via chart review. I have independantly interpreted the tests performed and discussed management with other consultants/providers involved in the treatment of this patient. 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, possibly Alzheimers without behavioral disturbance, plus vascular as hx of lacunar infarct, vs primary progressive aphasia due to limited verbal output, # severe stenosis of proximal ICAs and severe stenosis of rt vertebral artery # acute delirium due to trauma and uti and hospitalization sleep deprivation #History of falls # Generalized weakness # type 2 DENs fx # impaired functional mobility gait endurance and balance #Reduced appetite, #Unintentional weight loss 19 lb in 6 months , BMI is 18.02 #dysphagia # Adjustment reaction with depressed mood and anxiety Electronically signed by Christin Camara, WALLPAPER SCRAPER-WESTERN PHILOSOPHY PROFESSOR at 01/28/2024 9:08 PM EDT Dietitian vs DietaryTech: [facility] Diet Rn [facility] Nutrition Screening Reason for visit: Positive nutrition screen for unplanned weight loss Assessment Admitting Diagnosis: TRAUMA- Fall High risk nutrition diagnosis: No - no points Past Medical History: No past medical history on file. Food Allergies: Allergies have not been reviewed Labs: LFT's (last 3 years, up to 8 values) No lab values to display. Albumin: n/a - no points Skin Integrity: No pressure ulcers at this time - no points Fluid Accumulation: wnl Diet Order: NPO Supplements: none % PO Intake: NPO Intake difficulties: None - 0 points 5' 4 105 lbs .47.6 kg Weight history: 111 lbs - November 2023; 114 lbs - October 2023; 121 lbs - Jul 2023 124 lbs - January 2023 per Care Everywhere Weight Only Weight 01/28/2024 3:09 AM 105 lb BMI: 18.02 BMI Screening value: less than 18.5- 4 points % Weight Loss: 6.4% in three months and 13.2% in 3 months Weight Loss Screening Value: Greater than 7.5% in 3 months- 7 points Education: No nutrition education indicated at this time. Comments: currently NPO. Patient sleeping soundly at visit and did not awaken to verbal stimuli. Weights reviewed in Epic and Care Everywhere. Will refer. Number of Points: 7 Nutritional Plan of Care: Greater than or equal to 7 points: Patient is at high nutrition risk. Refer to RD. Will continue to follow, Jacque Cantrell, Diet Rn [facility] Pager [phone] Associated Order(s): IP HEDIS SPECIALIST SERVICE REQUEST SPEECH LANGUAGE PATHOLOGY BEDSIDE SWALLOW EVALUATION: [id number] Referral received, chart reviewed and history is noted. Time In: 1112 Time Out: 1126 Session Duration: 14 minutes Patient identified by patient/armband stating name and date of . Date of Onset: 01/28/24 Reason for Consult: Swallow Evaluation, assess swallowing s/p c-spine fx and c-collar History: afib, HTN, HLD, CKD, PAD (ASA & Plavix), DM, CVA, dementia Reason for admission: Per H&P- Pt is an 83 yo F who presents s/p FFS after slipping at her house. Upon arrival to OSH a CT C-spine was conducted which shows a Type 2 odontoid fracture for which patient was transferred to [facility] and NSGY was consulted. Denies pain or any other symptoms. Precautions: Fall; FULL CODE Imaging: No chest imaging completed this admission CTA Neck 01/28/24 Other: Minimally displaced type II odontoid fracture and comminuted fracture of the basion. Associated small volume epidural hematoma extending from the craniocervical junction to C3-C4 and causes abutment of the anterior cord at the cervicomedullary junction. No evidence of a soft tissue mass or lymphadenopathy in the neck or superior mediastinum. 2-3 mm nodules seen in the bilateral peripheral lung apices. IMPRESSION: No evidence of significant cerebrovascular injury. Advanced atherosclerotic disease resulting in severe stenosis ( >70%) of the proximal ICAs and severe stenosis at the right vertebral artery origin. CXR C-Spine 01/28/24 Pending results Prior Level of Functioning: No h/o dysphagia or HEDIS SPECIALIST services in chart SUBJECTIVE: Patient subjective/goals: Patient sleeping in bed upon HEDIS SPECIALIST arrival, c-collar in place and family at bedside. HEDIS SPECIALIST spoke with JARED olea to session. RN reports medical team cleared patient for sips and small amounts of PO with HEDIS SPECIALIST. Patient fully participated throughout session with cues from HEDIS SPECIALIST. Patient Statement: Yes Pain: None reported to HEDIS SPECIALIST Scale (if yes): -/10 Location: - OBJECTIVE: Oral-Motor Assessment: Lingual protrusion: + Lingual lateralization: + Labial protrusion: + Labial retraction: + Mandible: + Symmetry: + Secretions: WFL Dentition: Dentures Swallowing -Patient is currently on a NPO -Oral mucosa moist and pink SpO2: 98% Temperature: 99.0 CXR: N/A Oxygen Requirements: Room air Other Consistencies Presented: Thin liquid via single straw sips and x4 teaspoons of puree Oral Phase: WFL bilabial seal; No anterior spillage, Did not assess mastication, No oral residuals Observed what appeared to be slight oral holding at times Pharyngeal Phase: No overt evidence of airway compromise w/ oral intake - No cough or change in vocal quality - No increased/effortful work in breathing - No pain or globus sensation reported Risk Assessment: Factors Associated with Aspiration Related Pulmonary Complications: Low Positive Impact Negative impact Pulmonary Clearance Medical Conditions (COPD, CHF, asthma) Reduced function (reduced mobility/increased dependence for care) X Pulmonary health (h/o smoking, need for supplemental O2, need for inhaled medications) X Immune Response Nutritional Status X Medical co-morbidities X Presence of current infectious process X (Elevated WBC) Bacteriological Contents Dependencies for oral care X Dental care/repair X Oral hygiene X Xerostomia X Diabetes X Acid Suppression therapy (PPI, H2 Blockers) X Education: HEDIS SPECIALIST educated patient, family, and RN on results/recommendations and POC. ASSESSMENT: Diagnosis: no overt s/s of cardiopulmonary distress/decline Impression: Dysphagia: A clinical swallow evaluation is completed at bedside. [place] Swallow Protocol deferred d/t only small amounts of PO allowed per medical team. Patient presents with no overt s/s of cardiopulmonary distress/decline with PO throughout session. The patient has low risk factors for developing aspiration related complications. Instrumental swallowing assessment is not indicated at this time though HEDIS SPECIALIST to monitor need pending possible cervical injury. Cautiously recommend Dysphagia Level 1 Puree Diet with Thin Liquids. HEDIS SPECIALIST to re-evaluate next date with greater amount of PO trials (only cleared for small amounts this date). HEDIS SPECIALIST to follow with POC. PLAN: Treatment Modalities: Dysphagia Therapy; Patient Family Education; Duration: Duration of acute therapy stay Frequency: 1-3x per week Goals: Dysphagia The patient will participate in further evaluation of swallowing a the bedside with HEDIS SPECIALIST to determine LRD. The patient will consume Dysphagia Level 1 Puree and Thin Liquids with no overt s/s of cardiopulmonary distress/decline across 3-5 days. The patient/caregiver/family will demonstrate adequate return of knowledge of all compensatory strategy/instruction to effectively assist the patient in immediate safety with oral intake and swallowing. Prognosis: (+) Cooperation (+) PMH (+) New onset of acute issues (-) Age (-/+) Cognition Recommendations: - Cautiously recommend Dysphagia Level 1 Puree Diet with Thin Liquids - Recommend medications crushed in puree as able - OOB to chair at 90 degree angle when able; otherwise, upright at 60< degree angle for all PO intake - Oral care 2x/day with standard toothbrush (physical assist is needed to complete) - Recommend consult to Geriatrics given family concerns and report - Speech therapy to follow while in house short term - Do not anticipate further skilled speech therapy needs at discharge - Discharge Recommendation: SNF vs Home with full assist/supervision - If patient to discharge directly to home, recommend Total supervision and assist with IADLs (ie: finances, medication management) Nicole Grimaldo MA, CCC-HEDIS SPECIALIST Speech Language Pathologist Office [id number] Associated Order(s): IP OCCUPATIONAL THERAPY SERVICE REQUEST OCCUPATIONAL THERAPY INITIAL EVALUATION Patient seen from 1303 to 1325 on 5E unit for 22 minutes. Admit date: 01/28/2024 3:02 AM Reason for Admit: 83 yr old F s/p fall from standing after slipping at her house. Diagnosis: Type 2 Dens Fracture Precautions/Activity Order: High falls Full code Maintain C collar at all times Procedures this admit: Per NSGY : No acute neurosurgical intervention Past Medical and Surgical History: PMH: afib, HTN, HLD, CKD, PAD (ASA & Plavix), DM, CVA, dementia PSH: No past surgical history on file. SUBJECTIVE: Patient Subjective: I usually do this myself Patient Identified Goal(s):none stated Home Living Situation. Patient questionable and vague historian. Per chart review patient lives with daughter and using RW to ambulate. Patient vague on use of RW vs rollator. Patient state she lives by herself. Prior Functional Status: ? Assistance Available at Home: lives with daughter? Patient lives in a 1 story home ? stairs to enter. Full Bathroom on main level. Bedroom on main level. Equipment available at home: RW vs rolator? OBJECTIVE: Patient Identification: patient verbalizing his/her name and date of . Risks and benefits of occupational therapy: Patient informed of risks and benefits of treatment Appearance: supine in bed upon arrival, IV, c collar in place, IV, external cathter Alertness: Awake Affect: flat Cooperation/Behavior: cooperative, flat affect, mild confusion , delayed processing. Communication: WF Pain: Pain ratin/10, Location: denies pain Pain Relief Interventions Implemented: Positioning, Rest, and RN aware and reports patient received medication according to time schedule Self Care: Assistance Level Dep Max Mod Min CG CS DS NE I Set-Up Comment Feeding x Grooming/Hygiene x Simulated seated EOB Bathing:UB x Anticipate Bathing:LB x Simulated Dressing:UB x Managing gown Dressing: LB x Donning socks Toileting x +external catheter. Assist to doff and don new brief. Transfers/Bed Mobility: Assistance Level Dep Max Mod Min CG CS DS NE I Set-Up Comment Toilet Transfers x1 Based on bed/chair transfer Bed Transfers x1 Sit to stand from EOB with RW, cues for technique /placement of BUE. Patient with flexed posture, and decreased step length. Cues required for sequencing and RW management. Bed Mobility X1-2 Supine to sit EOB via log roll technique. Assist at trunk for sidelying to sit. Assist to scoot towards EOB.. min a X2 required to return to supine Endurance for Self Care: Impaired Static Sitting Balance: WFL Dynamic Sitting Balance: WFL UE Motor: BUE at least 3/5. Patient with impaired command follow during MMT. Denies numbness/tingling Vision/Perception: WFL Cognition: Orientation: Oriented to person, place hospital , month with choices, year: 2039...2023 patient unable to recall situation Follows Commands: requires occasional repeat of directions Attention: Impaired Memory: Impaired Problem Solving: Impaired Safety/Judgement: Impaired Sequencing: Impaired Other Specialized Tests: None Patient/Family Education: Instructed patient in roles of therapy Patient up in bed with call light in reach. bed alarm active. DME: With Patients permission ordered no equipment via upad Order. If any questions contact [facility] DME Provider at [phone]. 01/28/2024 6 Clicks Daily Activity OT Help from another person Eating meals 4 Help from another person taking care of personal grooming 3 Help from another person bathing 2 Help from another person putting on and taking off regular upper body clothing 3 Help from another person putting on and taking off regular lower body clothing 2 Help from another person toileting 2 OT 6 Clicks Score 16 6 Click Score Guidelines: 1 - Unable = Total/Dependent Assist 2 - A lot = Max/Moderate Assist 3 - A little = Minimum/Contact Guard Assist/Supervision 4 - Non = Modified [place]/Independent ASSESSMENT: Recommend further therapy services in a Skilled Rehab Setting once medically cleared. Will continue to follow patient while in hospital as appropriate. Rehabilitation Potential: Good Problem List: decreased ADLs, decreased endurance, decreased functional transfers/mobility, impaired balance, decreased home management tasks/IADLs, decreased functional activity tolerance, and increased pain Goals (to be achieved by discharge from acute care): Patient will perform grooming with Distant supervision Patient will dress upper body with Distant supervision Patient will dress lower body with Distant supervision Patient will perform bed mobility with Distant supervision Patient will perform bathing with Distant supervision Patient will perform toileting with Distant supervision Patient will perform bed transfers with Distant supervision Patient will perform commode transfers with Distant supervision PLAN: Bernardino Guzman will be seen 1-3 times a week. Treatment to include: Functional AROM/Strengthening, functional mobility training, ADL retraining, functional endurance activities, work simplification / energy conservation, home management retraining, functional task simulation, adaptive equipment / compensatory strategy training, patient / family education and discharge planning, referral to appropriate support services, and pain Management able to discuss the evaluation findings and treatment plan with the patient/family. The patient/family did participate in the development of plan and goals. Jean Pierre Nieto, OTR/L NA = Not Assessed, I = Independent, NE = Modified Independent, Sup = Supervised, Set up = Physical Assistance for Set-up Only, Min = Minimal Assistance, Mod = Moderate Assistance, Max = Max assistance; Dep = Dependent; AROM = Active Range of Motion;PROM=Passive Range of Motion; MMT = Manual Muscle Test; UB = Upper Body; LB = Lower Body Associated Order(s): IP PHYSICAL THERAPY SERVICE REQUEST PHYSICAL THERAPY ACUTE EVALUATION Referral received, chart reviewed. Patient seen from 13:03 to 13:21 on 5E unit for 18 minutes. Co-treat with OT for safe pt handling and progression of mobility. Admit date/time: 01/28/2024 3:02 AM Reason for Admit: 83 y.o F who presented to ED from OSH 01/28/24 s/p unwitnessed fall with resulting odontoid fx. Transferred to [facility] for spine consult. (?) LOC Diagnosis: Type 2 Dens Fracture Precautions: Falls NPO Full Code Progressive mobility Maintain C-collar at all times- per neurosurgery note Procedures this admit: No acute intervention per neurosurgery Past Medical and Surgical History: PMH: a-fib on warfarin, mild dementia, CAD, CVA, HTN, and DM2 PSH: No past surgical history on file. Identification was verified by patient verbalizing his/her name and date of . Risks and Benefits of physical therapy: Patient informed of risks and benefits of treatment SUBJECTIVE: Patient Subjective: I want to lay down Patient Identified Goal(s): To lay down CAREER PROFESSIONAL Status: Pt is a questionable historian. Pt reports ambulating with a walker, vague if RW vs rollator. Reports she does not need help with ADLs Home: ? steps to enter ? rails. ? steps to bedroom/bathroom ? rails. Assistance available: Per chart pt lives with her daughter, pt reports she lives alone. Equipment available: walker? OBJECTIVE: Appearance: Pt supine in bed, bed alarm on, c-collar donned, PIV and female External Catheter System Behavior: Awake, mild confusion, cooperative, flat, delayed processing Oriented x self, location. Able to correctly guess month and year when given options Follows 1 step commands consistently with cues Pain: Site/Location: none stated; Pain Scale: 0/10 Pain Relief Interventions Implemented: None required; No pain at this time Passive ROM: Not formally tested however observed WFL for basic level of mobility Strength/Active ROM: Fair R LE L LE Hip flexion 4/5 4/5 Knee extension 4/5 4/5 Knee flexion, ankle PF/DF not formally tested due to difficulty with command follow Mobility: Rolling to left: CGA Sidelying to sit: MinAx1 at trunk to elevate Sit to supine: MinAx2 at trunk on descent and at B LE onto bed Sitting balance: Good, CGA progressing to CS at EOB. Cues to keep eyes open Sit to stand: From bed, RW MinAx1 Ambulation/Gait: 20'x1, RW, MinAx1 overall for balance, safety, and RW management. Pt demos step through pattern with slow brian, decreased B step length, decreased environmental awareness, unsteadiness, and increased space between RW and body. Pt requires increased verbal and tactile cues for obstacle negotiation, body approximation to RW, and motor planning Endurance: Impaired Patient/Family Education: Instructed Patient in roles of therapy. Sitting up in chair at least 1 hr and for all meals Not getting up without assistance from nursing Patient up in bed with call light in reach. Bed alarm on. DME: With Patients permission ordered no equipment via upad Order. If any questions contact [facility] DME Provider at [phone]. 01/28/2024 6 Clicks Basic Mobility PT Difficulty turning over in bed 3 Difficulty sitting down and standing up from a chair with arms 3 Difficulty moving from lying on back to sitting on the side of the bed 3 Help from another person moving to and from bed to a chair 3 Help from another person to walk in hospital room 3 Help from another person climbing 3-5 steps with a railing 1 PT 6 Clicks Score 16 6 Click Score Guidelines: 1 - Total = Requires total assistance, or cannot do at all. 2 - A lot = Requires a lot of help (maximun to moderate assistance) Can use assistive devices. 3 - A little = Requires a little help (supervision, minimal assistance) Can use assistive devices. 4 - None = Does not require any help and does the activity independently. Can use assistive devices. ASSESSMENT: Bernardino Guzman is a 83 year old yo female with diagnosis as stated above. Pt is functioning below their baseline level of mobility and has impairments including decreased cognition, safety awareness, motor planning, LE strength, endurance, and balance. These impairments lead to limitations in bed mobility, functional transfers, and ambulation. Recommend further therapy services in a Halfway Setting once medically cleared. Will continue to follow patient while in hospital as appropriate. Problems: Decreased ROM/strength Decreased functional mobility Decreased endurance Decreased balance Decreased education in exercise/precautions Decreased cognition/behavior Impaired safety awareness Rehabilitation Potential: Good Goals (to be achieved by discharge from acute care): Patient will achieve acceptable level of pain control to allow participation in therapy. Patient will increase bed mobility to close supervision Patient will perform sit to/from stand with rolling walker with close supervision Patient will ambulate 50 feet with rolling walker with close supervision Patient will increase ROM/Strength/Endurance/Balance to allow for above goals. Patient/Family independent with exercise program/precautions. PLAN OF CARE: Frequency: Patient to be seen 1-3 times a week Interventions: Functional mobility ROM/Strengthening Home exercise program Discharge planning and equipment ordering as needed Patient /Family education The evaluation findings and treatment plan were discussed with the patient. The patient indicated understanding and agreement with the plan. Ingris Le PT, DPT NA = Not Assessed, I = Independent, NE = Modified Independent, Sup = Supervised, Set up = Physical Assistance for Set-up Only, Min = Minimal Assistance, Mod = Moderate Assistance, Max = Max assistance; Dep = Dependent; AROM = Active Range of Motion; PROM = Passive Range of Motion; MMT = Manual Muscle Test; LE = Lower Extremity Images from the original note were not included. SPINE TRAUMA H&P Patient Name: Bernardino Guzman Primary Care Physician: No primary care provider on file. CONSULTED BY: Trauma CONSULTED FOR: Type 2 odontoid fracture CHIEF COMPLAINT: S/p FFS HPI: Pt is an 83 yo F with PMH afib, HTN, HLD, CKD, PAD (ASA & Plavix), DM, prior CVA who presents s/p FFS after slipping at her house. Upon arrival to OSH a CT C-spine was conducted which shows a Type 2 odontoid fracture for which patient was transferred to [facility] and NSGY was consulted. Denies pain or any other symptoms. Antiplatelet/Anticoagulant: ASA & Plavix PAST MEDICAL HISTORY: No past medical history on file. PAST SURGICAL HISTORY: No past surgical history on file. FAMILY HISTORY: No family history on file. SOCIAL HISTORY: Social History Occupational History Not on file Tobacco Use Smoking status: Not on file Smokeless tobacco: Not on file Substance and Sexual Activity Alcohol use: Not on file Drug use: Not on file Sexual activity: Not on file MEDICATIONS: ALLERGIES: Not on File COMPLETE REVIEW OF SYSTEMS: ROS 06/24 systems negative other than above LABS: CBC/PT/INR 01/28/2024 3:07 AM WBC 17.0 RBC 4.77 Hgb 13.3 Hct 40.4 MCV 85 RDW 15.5 Plt 368 aPTT 41 INR 2.80 Basic Metabolic Panel 01/28/2024 3:19 AM Na 138 K 4.7 Cl 100 CO2 27 Gap 16 Glu 190 BUN 19 Cr 1.26 Ca 8.8 NEURO EXAM: Slightly confused on exam Ox2 (not place) Face grossly symmetric C-collar in place BUE: grossly full strength throughout all muscle groups BLE: grossly full strength throughout all muscle groups No Hoffmans No Clonus Sensation grossly intact and symmetric throughout PHYSICAL EXAM: Vitals: 01/28/24 0312 BP: 117/59 Pulse: 96 Resp: 16 Temp: SpO2: 97% General appearance: Slightly confused. Skin: Skin color normal. No rashes or lesions. Head: Normocephalic. No masses, lesions. Eyes: Conjunctivae not injected /corneas clear. Ears: External ears normal. Nose/Sinuses: External nose normal. Neck: C-collar in place. Lungs: No acute respiratory distress. Heart: Regular rate. RADIOLOGY: CT C-spine: Type 2 odontoid fracture SPINE CLASSIFICATION: 1. Spinal fracture level: Cervical: C2 2. Neurological level of injury: None 3. Fracture morphology: Type 2 Dens 4. Facet fracture: No BL: Bilateral injury: No 5. Neurological status: N0: Intact N+: Ongoing compression with neurological deficit: No 6. Clinical modifiers: None 7.Previous spine surgery: No 8. Previous spine trauma: No ASSESSMENT/PLAN: Pt is an 83 yo F with PMH afib, HTN, HLD, CKD, PAD (ASA & Plavix), DM, prior CVA who presents s/p FFS after slipping at her house. Upon arrival to OSH a CT C-spine was conducted which shows a Type 2 odontoid fracture for which patient was transferred to [facility] and NSGY was consulted. -No acute neurosurgical intervention -Maintain C-collar at all times -Recommend C-spine upright X-rays (including odontoid view) -Further recs pending completion of imaging Above plan was discussed with the (Chief) within 30 minutes of consult and discussed with the staff Dr. Emilia Hua PA-C Neurosurgery Pager: [phone] Split/Shared Documentation I approve the management plan for this patient and take responsibility for the plan as documented. Independent Interpretation of Tests Performed by Another Physician/MARCELO: I personally performed, reviewed, and interpreted CT C-spine with findings of Type 2 Dens fracture. Barney Hua PA-C documented in this encounter [facility] 02-04-2024 Consult note Formatting of th is note is different from the original. Images from the original note were not included. Adult Inpatient Nutrition Assessment Reason for Visit: 7 day follow up Nutrition Assessment: Admitting Diagnosis: TRAUMA- Fall No past medical history on file. is allergic to: No Known Allergies Nutritionally Significant Meds: vitamin D, lasix, humalog, miralax, senna, vitamin B12, coumadin LR @ 75 cc/hr Labs: Basic Metabolic Panel 02/04/2024 02/03/2024 1:45 AM 1:00 AM Na 135 134 K 4.6 4.4 Cl 101 100 CO2 28 27 Gap 11 11 Glu 150 124 BUN 32 23 Cr 1.04 1.16 Ca 8.9 8.8 CBC (last 3 years, up to 8 values) 02/03/2024 02/01/2024 01/31/2024 01/30/2024 01/29/2024 01/28/2024 1:00 AM 3:08 AM 1:03 AM 12:25 AM 3:43 AM 3:07 AM WBC 10.9 8.7 10.3 10.5 11.7 17.0 RBC 4.19 3.91 4.16 4.26 4.74 4.77 Hgb 11.8 11.0 11.6 12.1 13.4 13.3 Hct 35.8 33.1 35.3 36.2 40.5 40.4 MCV 85 85 85 85 86 85 RDW 15.4 15.4 15.6 14.8 15.6 15.5 Plt 339 285 309 317 344 368 Fingerstick Glucose (last 72 hours) (Last 10 results in the past 72 hours) Glucose 07/24/24 1140 256 02/04/24 0738 145 02/03/24 2045 161 02/03/24 1645 194 02/03/24 1200 161 02/03/24 0726 119 02/02/24 2134 144 02/02/24 1640 216 02/02/24 1138 149 02/02/24 0752 110 Vital sign ranges over the past 24 hours (retrieved 02/04/2024 at 3:42 PM): Tmax (24 hours): 98.2 F (36.8 C) Pulse Av.7 Min: 8 Max: 97 Systolic (24hrs), Av , Min:109 , Max:152 Diastolic (24hrs), Av, Min:59, Max:73 MAP (mmHg) Av mmHg Min: 81 mmHg Max: 85 mmHg Resp Av Min: 18 Max: 18 SpO2 Av.7 % Min: 99 % Max: 100 % Intake/Output Summary (Last 24 hours) at 02/04/2024 1542 Last data filed at 02/04/2024 1044 Gross per 24 hour Intake 460 ml Output -- Net 460 ml BM: 02/03 Diet Order: dysphagia advanced, Boost GC Max PO intake: 25-50% Height: 5' 4 Weight: 47.6 kg IBW: 55 kg %IBW: 87 BMI: 18.02: Underweight Estimated needs: 5624-0185 kcal/d 30-35 kcal/kg 57-72 g pro/d 1.2-1.5 g pro/kg 1440 cc/d 30 cc/kg Assessment: 83 year old female w/ pmh significant for A-fib on warfarin, mild dementia, CAD, CVA, HTN, and DM2 brought in by EMS from an outside hospital ([facility]) as a CAT 2 trauma following an unwitnessed fall w/ a daignosis of a Type 2 Dens Fracture. Per EMS, patient was found on floor after being down several hours. ? Head strike, ? LOC (patient amnestic to the event) + AC/AP (ASA & Plavix) Pt reports having a pacemaker in place but otherwise has no other medical concerns at this time. At baseline, pt uses a walker for ambulation. Per patient's paperwork, during her ED course at [facility], pt did have an episode of emesis for which she got a dose of zofran. INR was therapeutic at 2.85. UA was significant for a UTI and patient was given a dose of IV recephin. CTA Neck was not done prior to transfer. Hospital Course: 01/28/2024: Transfer to [facility] for T2 dens Fx. Admitted to [facility] 01/29/2024 No acute events 01/29 No acute events 01/30 Restarting Warfarin, Tolerating po 01/31 No acute events 02/01: Medically cleared for discharge to SNF. At this follow up, Pt is on a dysphagia advanced diet. PO intake remains poor, 25-50% of meals consumed per intake flow sheet. Last BM 02/03, no emesis. BG levels appearing well controlled. Pt receiving Boost GC Max w/ meals, please continue. No new weight to assess, please weigh weekly. See recs below, thank you. Nutrition Interventions: 1. Diet Per HEDIS SPECIALIST recs Continue Boost GC Max TID 2. Continue insulin coverage PRN 3. Weekly weights Will continue to follow Edgar Kim RD, LD Personal Pager [phone] Automatic Door Mechanic Pager: [phone] [facility] 02-04-2024 Progress note Formatting of t his note might be different from the original. CM aware that precert is still pending for patient at the [facility]. CM will continue to follow for discharge. KEM Galeas, information assoc, FriFri PH: [phone] ([email or web address]) PH: [phone] (mobile) PH: [phone] (Sat only) Email: [email or web address] [facility] 02-04-2024 Note GERIATRIC CONSULT WI OGRESS NOTE Patient Name: Bernardino Guzman Location: [place] [address] Attending: Iesha Gold MD PCP: Apurva Tatum MD, MD Cc: feel ok tired, cold want to sleep HIPAA: Verbal permission granted from patient to discuss case, including protected health information, on phone with [facility]orro [facility]r Generalist: Not needed - patient preferred language is [place] History was obtained by: discussion with nursing staff and review of chart patient is NOT a reliable historian BRIEF SUMMARY OF PATIENT: 83 year old year old female with a history of atrial fib on warfarin, CAD, CVA , HTN type 2 DM, ( a1 c? ) mild to moderate dementia, anxiety with hx of falls, recently with head strike 3 wk prior to this admission, who was found down at home unwitnessed fall and taken to [facility], unable to recall the event, became nauseated, and INR 2.85, UA suggestive of UTI, given rocephen x 1, and CTN was not done prior to transfer to ED was category 2 trauma, f presenting to ED on 01/28/2024 for dx of type 2 Dens fracture. 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 Depression, vs due to dementia ; family agrees with celexa - debility loss of muscle mass and decine in function family in agreement with snf - ICA stenosis bilat and rt vertebral artery stenosis , discussed with family, management per trauma team - 01/28 after eating well, began vomiting ,(also had an oxycodone then ) ? If due to that or bactrim changed to clear liquid HEDIS SPECIALIST consulted - started on celexa 10mg for depression anxiety delirium /dementia - GOC discussion changed to DNRCCA DNI , no feeding tube, goal improve nutrition and strength at rehab - upright films c spine completed and eval by Dr Maya , follow up in 2 wk, ASpen collar at all times, neurosurg signed off - director field services did not see pt, ; recommends Boost GC max Tid 01/30/24 seen by HEDIS SPECIALIST ; suspects esophageal dysphagia ? Oropharyngeal dyspahgia component , failied YSP , Recommendations ; Patient appears to be at a low-moderate risk for dysphagia given these findings paired with multiple dysphagia risk factors. Given diminished pulmonary clearance, diminished immune response, and diminished bacteriological contents patient risk for aspiration related pulmonary complication is currently perceived to be low (please see chart above for impacting factors). Given these consideration would suggest initiation of Dysphagia Diet Level 3-Mechanically Advanced/thin consistency diet with set up assist and intermittent supervision. An instrumental swallow via MBS may be beneficial in r/o airway invasion with PO intake given heightened risk with presence of C5-6 osteophytes and subtle s/sx of oropharyngeal incoordination. If this does not align with patient GOC, then would suggest ongoing clinical monitoring of diet tolerance and pulmonary health for early detection of potential aspiration. Would suggest considering GI workup for suspected esophageal phase dysphagia given h/o prandial emesis should patient/family wish to further assess this issue. 01/30 resumed coumadin 2mg/d Nausea felt to be due to opiods stopped 01/31 one episode of tachyardia , tolerating po foods soups without emesis, poor po intake 02/01 CM waiting for beds a snf , ambulated 10 ft then 25 ft x 2 with PT , and is ambulating to bathroom Celexa increased to 20mg /d on 02/02 Medically cleared for discharge per trauma team note Needs plan for : Incidental Findings: Reviewed on 01/29/2024 CI. Discussed by AA on 01/31 Advanced atherosclerotic disease resulting in severe stenosis ( >70%) of the proximal ICAs and severe stenosis at the right vertebral artery origin Pt lying in bed room dark at 9:30am no breakfast , pt unable to call to order breakfast Pt reports she is in bed because cold and tired. When asked if she needs to go to bathroom , she endorses this and allows me to assist her to bathroom She is aware she is in the hospital, did not recall snf for rehab recommended and did not recall neck fx GERIATRIC ROS: Cognitive Status: mild dementia . ,mild hypoactive delirium Mood: depressed mood Sleep: poor sleep , awakened at night and sleeps poorly at night she reports even at home Appetite: poor , Pain: denies Interval Falls: none Bowel Function: incontinent of stool x2 today , Bladder Function: continent with timed toileting Indwelling catheters: no Restraint use in last 24 hr: none Antipsychotic/opioid/benzo in last 24 hr: Celexa 20mg/d melatonin EKG 02/02/24 QTc: 464 atrial fib poor R wave progression Social; lived alone , had a few hours of CARE NAVIGATOR (more content not included)... [facility] 02-04-2024 Note EXAMINATION: XA PICC W/O PORT INC IMG >5Y/O 01/29/2024 04:39 PM CLINICAL HISTORY: Rad Procedure required: = picc palcement,no IV access ASSOCIATED DIAGNOSIS: ORDERING PROVIDER: E[employer] NOTE: Single lumen PICC, 4.5x39.5 FLUOROSCOPIST: GLORIA GRIGSBY TIME: .8 Minutes ATTENDING PHYSICIAN: Gloria Grigsby RESIDENT/FELLOW PHYSICIAN: Chris Lux INFORMED CONSENT: Written informed consent was obtained. The procedure, risks, benefits, and alternatives were discussed. All questions were answered. TIMEOUT: Physician led timeout was conducted documenting correct patient, procedure, site, fire risk, antibiotics and allergies. COMPLICATIONS: None ESTIMATED BLOOD LOSS: Less than 10 mL TECHNIQUE: The patient was positioned supine on the angiography table. The right arm was prepped and draped in usual aseptic fashion. Lidocaine was used for local anesthesia. A 21 ga. micro puncture needle was used to access the right basilic vein, using realtime ultrasound guidance. An ultrasound spot image was obtained. A 0.018 inch access wire was passed through the needle and the needle removed. A peel-away introducer sheath was placed over the wire over its matched dilator and the dilator was removed. A chlorhexidine gluconate-coated catheter was trimmed to an appropriate length and passed through the peel-away sheath. The peel-away was removed. A fluoroscopic spot image was obtained. The catheter was aspirated and flushed with normal saline. The catheter was sutured in place. Sterile dressings were placed. The patient tolerated the procedure well without immediate complication and was transferred from the angiography suite in stable condition. Catheter type: Single lumen 4.5 Maori Final catheter length: 39.5 cm, the catheter was retracted 2 cm as the patient's tachycardia (baseline postoperative procedure was 98-110), then above 110 post procedure and while vomiting. Additional fluoroscopic images were not obtained, due to patient vomiting and unable to remain on the fluoroscopic table. FINDINGS: Ultrasound spot image demonstrates patency of the target vein. Fluoroscopic spot image show the tip of the catheter projecting over the region of the atriocaval junction. IMPRESSION: Technically successful PICC line placement. MACRO: None RADIOLOGY 02-04-2024 Note EXAMINATION: XA PICC W/O PORT INC IMG >5Y/O 01/29/2024 04:39 PM CLINICAL HISTORY: Rad Procedure required: = picc palcement,no IV access ASSOCIATED DIAGNOSIS: ORDERING PROVIDER: [employer] NOTE: Single lumen PICC, 4.5x39.5 FLUOROSCOPIST: GLORIA GRIGSBY TIME: .8 Minutes ATTENDING PHYSICIAN: Gloria Grigsby RESIDENT/FELLOW PHYSICIAN: Chris Lux INFORMED CONSENT: Written informed consent was obtained. The procedure, risks, benefits, and alternatives were discussed. All questions were answered. TIMEOUT: Physician led timeout was conducted documenting correct patient, procedure, site, fire risk, antibiotics and allergies. COMPLICATIONS: None ESTIMATED BLOOD LOSS: Less than 10 mL TECHNIQUE: The patient was positioned supine on the angiography table. The right arm was prepped and draped in usual aseptic fashion. Lidocaine was used for local anesthesia. A 21 ga. micro puncture needle was used to access the right basilic vein, using realtime ultrasound guidance. An ultrasound spot image was obtained. A 0.018 inch access wire was passed through the needle and the needle removed. A peel-away introducer sheath was placed over the wire over its matched dilator and the dilator was removed. A chlorhexidine gluconate-coated catheter was trimmed to an appropriate length and passed through the peel-away sheath. The peel-away was removed. A fluoroscopic spot image was obtained. The catheter was aspirated and flushed with normal saline. The catheter was sutured in place. Sterile dressings were placed. The patient tolerated the procedure well without immediate complication and was transferred from the angiography suite in stable condition. Catheter type: Single lumen 4.5 Maori Final catheter length: 39.5 cm, the catheter was retracted 2 cm as the patient's tachycardia (baseline postoperative procedure was 98-110), then above 110 post procedure and while vomiting. Additional fluoroscopic images were not obtained, due to patient vomiting and unable to remain on the fluoroscopic table. FINDINGS: Ultrasound spot image demonstrates patency of the target vein. Fluoroscopic spot image show the tip of the catheter projecting over the region of the atriocaval junction. IMPRESSION: Technically successful PICC line placement. MACRO: None [facility] 02-03-2024 Consult note Formatting of th is note might be different from the original. Art Therapy Note Referral received. Chart reviewed, history noted. Thank you. Patient identified by Verbalizing name Narrative Note: Date/Time: 02/03/2024 at 0955 to 1003 Time Spent: 10 minutes Art Therapist (AT) entered room to offer patient art therapy support service. AT found patient seated in beside recliner, with breakfast tray in place. Patient was watching television. Upon greeting, patient responded verbally with soft voice. Patient displayed a muted affect with intermitted eye contact..AT introduced self and reviewed role of art therapy along with risks/benefits to patient. AT offered patient art making experience for self autonomy and sensory stimulation. Patient declined art making at this time. Patient stated that she did not enjoy her breakfast, and was waiting to return to bed. AT offered patient engagement of art making with AT creating from patient direction. Patient appeared hesitant, but was agreeable. AT created a tissue paper flower sculpture with patient direction. Patient make choices for her flower color, demonstrating self autonomy. Patient chose pink shades and purple. Patient increased attention and eye contact with AT as session progressed, as evidenced by patient watching less television and more of art experience. AT observed patient displaying a softened affect by smiling when flower was complete. Patient was agreeable for AT to return. Will continue to follow. Goals Addressed: Improved quality of life/self-esteem/adjustment/sense of autonomy as evidenced by: increased engagement in art intervention increased self-advocacy positive affect change Plan: Art therapy will follow patient focusing on Art Plan List: enhancing adjustment to hospitalization/medical situation and enhancing positive coping strategies Patient will be seen 1-2 times per week. Please refer to Art Therapy flowsheet for more data. Sloane Pruitt MA, ATR-BC Art Therapist, [facility] [email or web address] [facility] 02-03-2024 Note Art Therapy Note Referral received. Chart reviewed, history noted. Thank you. Patient identified by Verbalizing name Narrative Note: Date/Time: 02/03/2024 at 0947 to 1001 Time Spent: 10 minutes Art Therapist (AT) entered room to offer patient art therapy support service. AT found patient seated in beside recliner, with breakfast tray in place. Patient was watching television. Upon greeting, patient responded verbally with soft voice. Patient displayed a muted affect with intermitted eye contact..AT introduced self and reviewed role of art therapy along with risks/benefits to patient. AT offered patient art making experience for self autonomy and sensory stimulation. Patient declined art making at this time. Patient stated that she did not enjoy her breakfast, and was waiting to return to bed. AT offered patient engagement of art making with AT creating from patient direction. Patient appeared hesitant, but was agreeable. AT created a tissue paper flower sculpture with patient direction. Patient make choices for her flower color, demonstrating self autonomy. Patient chose pink shades and purple. Patient increased attention and eye contact with AT as session progressed, as evidenced by patient watching less television and more of art experience. AT observed patient displaying a softened affect by smiling when flower was complete. Patient was agreeable for AT to return. Will continue to follow. Goals Addressed: Improved quality of life/self-esteem/adjustment/sense of autonomy as evidenced by: increased engagement in art intervention increased self-advocacy positive affect change Plan: Art therapy will follow patient focusing on Art Plan List: enhancing adjustment to hospitalization/medical situation and enhancing positive coping strategies Patient will be seen 1-2 times per week. Please refer to Art Therapy flowsheet for more data. Sloane Pruitt MA, [facility]- Art Therapist, [facility] [email or web address] [facility] 02-03-2024 Progress note Formatting of t his note might be different from the original. CASE MANAGEMENT OT note sent to Myriam at [facility], mahad initiated. 7000 complete. Case management will continue following patient for further discharge needs as warranted. Alicia Hou BSN RN CMSRN PRN Burial Vault Setter [facility] 02-03-2024 Consult note Formatting of th is note is different from the original. OCCUPATIONAL THERAPY PROGRESS SUMMARY Patient seen from 0900 to 0923 on GC5E unit for 23 minute treatment. SUBJECTIVE: Patient Subjective/Goals: I just feel tired. OBJECTIVE: Pain: No pain reported or noted Pain Relief Interventions Implemented: None required; No pain at this time Appearance/Behavior: Supine, IV, c-collar, frail. Pt pleasant and cooperative Cognition: Oriented to self, place, month/year. Requires intermittent cues for sequencing during ADLs UE Status: BUE AROM grossly WFL except shoulder flexion limited to 1/2 of full range. Generalized weakness noted Self Care: Assistance Level NA Dep Max Mod Min CG CS DS NE I Set-Up Cues Comment Feeding x x Grooming/ Hygiene x x Pt completed facial hygiene and combing hair standing at sink Cues for sequencing Bathing: Upper Body x Simulated sponge bathing Bathing: Lower Body x Simulated sponge bathing Dressing: Upper Body x Anticipated to don shirt Dressing: Lower Body x Anticipated to don pants Toileting x Anticipated for management of hygiene Toilet Transfers x anticipated Bed Transfer x Sit to stand from EOB to wheeled walker- CGA Pt ambulated to and from bathroom with wheeled walker- CGA, cues for walker management Bed Mobility x Supine to sit EOB Endurance for Self Care: Impaired Patient/Family Education: Instructed patient in roles of therapy, importance of OOB activity and occupational engagement, discharge planning, fall prevention DME: With Patients permission ordered no equipment via upad Order. If any questions contact [facility] DME Provider at [phone]. 01/30/2024 6 Clicks Daily Activity OT Help from another person Eating meals 3 Help from another person taking care of personal grooming 3 Help from another person bathing 3 Help from another person putting on and taking off regular upper body clothing 3 Help from another person putting on and taking off regular lower body clothing 3 Help from another person toileting 3 OT 6 Clicks Score 18 6 Click Score Guidelines: 1 - Unable = Total/Dependent Assist 2 - A lot = Max/Moderate Assist 3 - A little = Minimum/Contact Guard Assist/Supervision 4 - Non = Modified [place]/Independent ASSESSMENT: Recommend further therapy services in a Skilled Rehab Setting once medically cleared. Will continue to follow patient while in hospital as appropriate. Goals (to be achieved by discharge from acute care): Patient will perform grooming with Distant supervision Patient will dress upper body with Distant supervision Patient will dress lower body with Distant supervision Patient will perform bed mobility with Distant supervision Patient will perform bathing with Distant supervision Patient will perform toileting with Distant supervision Patient will perform bed transfers with Distant supervision Patient will perform commode transfers with Distant supervision PLAN: Continue with Plan as per Initial Evaluation. Sweetie Meléndez OT NA = Not Assessed, I = Independent, NE = Modified Independent, Sup = Supervised, Set up = Physical Assistance for Set-up Only, Min = Minimal Assistance, Mod = Moderate Assistance, Max = Max assistance; Dep = Dependent; AROM = Active Range of Motion;PROM=Passive Range of Motion; MMT = Manual Muscle Test; Shld= Shoulder; Add = Adduction; Abd = Abduction [facility] 02-03-2024 Note OCCUPATIONAL THERAPY PROGRESS SUMMARY Patient seen from 0900 to 0923 on GC5E unit for 23 minute treatment. SUBJECTIVE: Patient Subjective/Goals: I just feel tired. OBJECTIVE: Pain: No pain reported or noted Pain Relief Interventions Implemented: None required; No pain at this time Appearance/Behavior: Supine, IV, c-collar, frail. Pt pleasant and cooperative Cognition: Oriented to self, place, month/year. Requires intermittent cues for sequencing during ADLs UE Status: BUE AROM grossly WFL except shoulder flexion limited to 1/2 of full range. Generalized weakness noted Self Care: Assistance Level NA Dep Max Mod Min CG CS DS NE I Set-Up Cues Comment Feeding x x Grooming/ Hygiene x x Pt completed facial hygiene and combing hair standing at sink Cues for sequencing Bathing: Upper Body x Simulated sponge bathing Bathing: Lower Body x Simulated sponge bathing Dressing: Upper Body x Anticipated to don shirt Dressing: Lower Body x Anticipated to don pants Toileting x Anticipated for management of hygiene Toilet Transfers x anticipated Bed Transfer x Sit to stand from EOB to wheeled walker- CGA Pt ambulated to and from bathroom with wheeled walker- CGA, cues for walker management Bed Mobility x Supine to sit EOB Endurance for Self Care: Impaired Patient/Family Education: Instructed patient in roles of therapy, importance of OOB activity and occupational engagement, discharge planning, fall prevention DME: With Patients permission ordered no equipment via upad Order. If any questions contact [facility] DME Provider at [phone]. 01/30/2024 6 Clicks Daily Activity OT Help from another person Eating meals 3 Help from another person taking care of personal grooming 3 Help from another person bathing 3 Help from another person putting on and taking off regular upper body clothing 3 Help from another person putting on and taking off regular lower body clothing 3 Help from another person toileting 3 OT 6 Clicks Score 18 6 Click Score Guidelines: 1 - Unable = Total/Dependent Assist 2 - A lot = Max/Moderate Assist 3 - A little = Minimum/Contact Guard Assist/Supervision 4 - Non = Modified [place]/Independent ASSESSMENT: Recommend further therapy services in a Skilled Rehab Setting once medically cleared. Will continue to follow patient while in hospital as appropriate. Goals (to be achieved by discharge from acute care): Patient will perform grooming with Distant supervision Patient will dress upper body with Distant supervision Patient will dress lower body with Distant supervision Patient will perform bed mobility with Distant supervision Patient will perform bathing with Distant supervision Patient will perform toileting with Distant supervision Patient will perform bed transfers with Distant supervision Patient will perform commode transfers with Distant supervision PLAN: Continue with Plan as per Initial Evaluation. Sweetie Meléndez, MARCO NA = Not Assessed, I = Independent, NE = Modified Independent, Sup = Supervised, Set up = Physical Assistance for Set-up Only, Min = Minimal Assistance, Mod = Moderate Assistance, Max = Max assistance; Dep = Dependent; AROM = Active Range of Motion;PROM=Passive Range of Motion; MMT = Manual Muscle Test; Shld= Shoulder; Add = Adduction; Abd = Abduction [facility] 02-02-2024 Consult note Formatting of th is note is different from the original. PHYSICAL THERAPY PROGRESS SUMMARY Patient seen from 1420 to 1443 on GC5e unit for 23 minute treatment. SUBJECTIVE: Patient Subjective/Goals: I don't know what happened. Pt states when asked why she's in the hospital OBJECTIVE: Appearance: pt in chair w/ aspen c-collar and torso support intact Behavior: alert,cooperative, [place]'ALENE, grossly oriented x 3, Pain: Site/Location: pt does not report pain Therex- AP 1x10 LAQ 1x10 Mobility NA Dep Max Mod Min CG CS DS NE I Comment Rolling L and R x Bed flat Use of rail Sit to/from stand x x CGA from bedside chair Joel from toilet Walking on level surface x ~10 feet and ~ 25 feet x 2 with rolling walker Gait Analysis: vc's to keep feet closer to walker, NBOS slow pace, decrease stability Stairs x Stand to sit x Sit to Supine x Functional Endurance: improving Patient/Family Education: Patient instructed in calling for nursing assist for any additional needs. Reviewed injuries and need for aspen c-collar . Patient up in bed with call light in reach. bed alarm and roll belt intact DME: With Patients permission ordered no equipment via upad Order. If any questions contact [facility] DME Provider at [phone]. 02/02/2024 6 Clicks Basic Mobility PT Difficulty turning over in bed 3 Difficulty sitting down and standing up from a chair with arms 3 Difficulty moving from lying on back to sitting on the side of the bed 3 Help from another person moving to and from bed to a chair 3 Help from another person to walk in hospital room 3 Help from another person climbing 3-5 steps with a railing 1 PT 6 Clicks Score 16 6 Click Score Guidelines: 1 - Total = Requires total assistance, or cannot do at all. 2 - A lot = Requires a lot of help (maximun to moderate assistance) Can use assistive devices. 3 - A little = Requires a little help (supervision, minimal assistance) Can use assistive devices. 4 - None = Does not require any help and does the activity independently. Can use assistive devices. ASSESSMENT: Recommend further therapy services in a Halfway Setting once medically cleared. Will continue to follow patient while in hospital as appropriate. Goals (to be achieved by discharge from acute care): Patient will achieve acceptable level of pain control to allow participation in therapy. Patient will increase bed mobility to close supervision Patient will perform sit to/from stand with rolling walker with close supervision Patient will ambulate 50 feet with rolling walker with close supervision Patient will increase ROM/Strength/Endurance/Balance to allow for above goals. Patient/Family independent with exercise program/precautions. PLAN: Will follow established Plan of Care Cecy KEBEDE Beeper #[phone] NA = Not Assessed, I = Independent, NE = Modified Independent, Sup = Supervised, Set up = Physical Assistance for Set-up Only, Min = Minimal Assistance, Mod = Moderate Assistance, Max = Maximal assistance; Dep = Dependent; AROM = Active Range of Motion; PROM = Passive Range of Motion; MMT = Manual Muscle Test [facility] Work Phone: 02-02-2024 Note PHYSICAL THERAPY PRO CARROL SUMMARY Patient seen from 1420 to 1443 on GC5e unit for 23 minute treatment. SUBJECTIVE: Patient Subjective/Goals: I don't know what happened. Pt states when asked why she's in the hospital OBJECTIVE: Appearance: pt in chair w/ aspen c-collar and torso support intact Behavior: alert,cooperative, [place], grossly oriented x 3, Pain: Site/Location: pt does not report pain Therex- AP 1x10 LAQ 1x10 Mobility NA Dep Max Mod Min CG CS DS NE I Comment Rolling L and R x Bed flat Use of rail Sit to/from stand x x CGA from bedside chair Joel from toilet Walking on level surface x ~10 feet and ~ 25 feet x 2 with rolling walker Gait Analysis: vc's to keep feet closer to walker, NBOS slow pace, decrease stability Stairs x Stand to sit x Sit to Supine x Functional Endurance: improving Patient/Family Education: Patient instructed in calling for nursing assist for any additional needs. Reviewed injuries and need for aspen c-collar . Patient up in bed with call light in reach. bed alarm and roll belt intact DME: With Patients permission ordered no equipment via upad Order. If any questions contact [facility] DME Provider at [phone]. 02/02/2024 6 Clicks Basic Mobility PT Difficulty turning over in bed 3 Difficulty sitting down and standing up from a chair with arms 3 Difficulty moving from lying on back to sitting on the side of the bed 3 Help from another person moving to and from bed to a chair 3 Help from another person to walk in hospital room 3 Help from another person climbing 3-5 steps with a railing 1 PT 6 Clicks Score 16 6 Click Score Guidelines: 1 - Total = Requires total assistance, or cannot do at all. 2 - A lot = Requires a lot of help (maximun to moderate assistance) Can use assistive devices. 3 - A little = Requires a little help (supervision, minimal assistance) Can use assistive devices. 4 - None = Does not require any help and does the activity independently. Can use assistive devices. ASSESSMENT: Recommend further therapy services in a Halfway Setting once medically cleared. Will continue to follow patient while in hospital as appropriate. Goals (to be achieved by discharge from acute care): Patient will achieve acceptable level of pain control to allow participation in therapy. Patient will increase bed mobility to close supervision Patient will perform sit to/from stand with rolling walker with close supervision Patient will ambulate 50 feet with rolling walker with close supervision Patient will increase ROM/Strength/Endurance/Balance to allow for above goals. Patient/Family independent with exercise program/precautions. PLAN: Will follow established Plan of Care Cecy KEBEDE Beeper #[phone] NA = Not Assessed, I = Independent, NE = Modified Independent, Sup = Supervised, Set up = Physical Assistance for Set-up Only, Min = Minimal Assistance, Mod = Moderate Assistance, Max = Maximal assistance; Dep = Dependent; AROM = Active Range of Motion; PROM = Passive Range of Motion; MMT = Manual Muscle Test [facility] 02-02-2024 Consult note Formatting of th is note might be different from the original. Music Therapy Note Referral Received. Chart reviewed; history noted. Thank you. Patient Identified by Wristband Narrative Note: Date/Time: 02/02/2024 at [id number]. Time spent: 18 minutes. Music Therapist (MT) entered room, found patient lying in bed, seemingly asleep, alone in room. Pt did not respond to the sound of her name. Pt was unable to consent due to somnolence. This session was an assessment. MT facilitated a live music listening experience as assessment. There were no observable responses to verbal stimuli and minimal responses to musical stimuli in harmonic and full song structure. Music used were in AB form to establish anticipation. Songs used were from pt's early adulthood to stimulate neurologic network. Music was delivered live with lyrics sung and accompanied with guitar that matched pt's respiratory. Observed some affective changes, movements in eye brows and eyes, but pt did not open eyes once throughout session. Will continue to assess. Goals Addressed: Assessment Music Intervention: Music listening Plan: Music Therapy will follow throughout hospitalization with 1-2 sessions per week. Please refer to Music Therapy Inpatient flowsheet for more data. Meryl Nava MM, JAMIL Music Therapist [facility] [employer] [facility] 02-02-2024 Note Music Therapy Note Referral Received. Chart reviewed; history noted. Thank you. Patient Identified by Wristband Narrative Note: Date/Time: 02/02/2024 at [phone]. Time spent: 18 minutes. Music Therapist (MT) entered room, found patient lying in bed, seemingly asleep, alone in room. Pt did not respond to the sound of her name. Pt was unable to consent due to somnolence. This session was an assessment. MT facilitated a live music listening experience as assessment. There were no observable responses to verbal stimuli and minimal responses to musical stimuli in harmonic and full song structure. Music used were in AB form to establish anticipation. Songs used were from pt's early adulthood to stimulate neurologic network. Music was delivered live with lyrics sung and accompanied with guitar that matched pt's respiratory. Observed some affective changes, movements in eye brows and eyes, but pt did not open eyes once throughout session. Will continue to assess. Goals Addressed: Assessment Music Intervention: Music listening Plan: Music Therapy will follow throughout hospitalization with 1-2 sessions per week. Please refer to Music Therapy Inpatient flowsheet for more data. Meryl Nava MM, MT- Music Therapist [facility] [employer] [facility] 02-02-2024 Progress note Formatting of t his note might be different from the original. CASE MANAGEMENT [facility] has no available female beds. CM will udpate patient/family and get additional SNF choices. ADDENDUM: CM spoke with patient's daughter Socorro and informed her of above. SNF list emailed to [email or web address]. ADDENDUM: Referral sent to [facility] per daughter's request. CM will attach updated PT/OT notes in [facility] once available and request initiation of precert if facility can accept. ADDENDUM: [facility] can accept. [facility] CM will attach OT note once available. CM requested initiation of precert. Case management will continue following patient for further discharge needs as warranted. Alicia YINGN RN CMSRN PRN Burial Vault Setter [facility] 02-02-2024 Note GERIATRIC PROGRESS N OTE Patient Name: Bernardino Guzman Location: [place] [address] Attending: Iesha Gold MD Cc; tired wants to go to bed HIPAA: Verbal permission granted from patient to discuss case, including protected health information, in front of family son room at the time of the evaluation. Hr Generalist: Not needed - patient preferred language is [place] HPI: 83 year old year old female with a history of atrial fib on warfarin, CAD, CVA , HTN type 2 DM, ( a1 c? ) mild to moderate dementia, anxiety with hx of falls, recently with head strike 3 wk prior to this admission, who was found down at home unwitnessed fall and taken to [facility], unable to recall the event, became nauseated, and INR 2.85, UA suggestive of UTI, given rocephen x 1, and CTN was not done prior to transfer to ED was category 2 trauma, f presenting to ED on 01/28/2024 for dx of type 2 Dens fracture. 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 Depression, vs due to dementia ; family agrees with celexa - debility loss of muscle mass and decine in function family in agreement with snf - ICA stenosis bilat and rt vertebral artery stenosis , discussed with family, management per trauma team - 01/28 after eating well, began vomiting ,(also had an oxycodone then ) ? If due to that or bactrim changed to clear liquid HEDIS SPECIALIST consulted - started on celexa 10mg for depression anxiety delirium /dementia - GOC discussion changed to DNRCCA DNI , no feeding tube, goal improve nutrition and strength at rehab - upright films c spine completed and eval by Dr Maya , follow up in 2 wk, ASpen collar at all times, neurosurg signed off - director field services did not see pt, ; recommends Boost GC max Tid 01/30/24 seen by HEDIS SPECIALIST ; suspects esophageal dysphagia ? Oropharyngeal dyspahgia component , failied YSP , Recommendations ; Patient appears to be at a low-moderate risk for dysphagia given these findings paired with multiple dysphagia risk factors. Given diminished pulmonary clearance, diminished immune response, and diminished bacteriological contents patient risk for aspiration related pulmonary complication is currently perceived to be low (please see chart above for impacting factors). Given these consideration would suggest initiation of Dysphagia Diet Level 3-Mechanically Advanced/thin consistency diet with set up assist and intermittent supervision. An instrumental swallow via MBS may be beneficial in r/o airway invasion with PO intake given heightened risk with presence of C5-6 osteophytes and subtle s/sx of oropharyngeal incoordination. If this does not align with patient GOC, then would suggest ongoing clinical monitoring of diet tolerance and pulmonary health for early detection of potential aspiration. Would suggest considering GI workup for suspected esophageal phase dysphagia given h/o prandial emesis should patient/family wish to further assess this issue. 01/30 resumed coumadin 2mg/d Nausea felt to be due to opiods stopped 01/31 one episode of tachyardia , tolerating po foods soups without emesis, poor po intake 02/01 CM waiting for beds a snf Walked 10 ft then 25 ft x 2 with RW with PT today per PT rec snf Son at bedside, verbalized concern with a dtr trying to convice pt she will care for her at home, when the dtr who is HCPOA is making the decision for snf. Family concerned the other dtr lacks understanding of pt's care needs and is unable to provide safe care at home. Reassure Don that the HCPOA is the decision maker at this time for pt. 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 [facility] 01-30-2024 Note Case Management CM sent referral to Mary at [facility]. CM will continue to follow. Doris Blue RN, BSN Inpatient Burial Vault Setter Via [employer] Chat Mon-Fri [phone] [facility] 01-30-2024 Consult note Formatting of th is note might be different from the original. Music Therapy Note Referral Received. Chart reviewed; history noted. Thank you. Patient Identified by Verbalizing name, Wristband, and With nurse Narrative Note: Date/Time: 01/30/2024 at [phone]. Time spent: 12 minutes. Music Therapist (MT) entered room, found patient lying in bed, resting with eyes closed, roll belt on, displaying flat affect, alone in room. When greeted, pt made appropriate eye contact and verbally responded, yet pt kept eyes closed during majority of session and spoke in a very soft volume. MT educated the role and risk/benefits of therapy. Pt consented to music therapy service. Upon assessment, pt seemed more somnolent today, required constant prompting to elicit verbal responses. MT facilitated a music listening experience to pt's self-identified preferred musical genre for cognitive stimulation. Pt responded to intervention with increased range of affect and increased level of engagement. Pt participated by mouthing lyrics to familiar songs but did not sing. Pt was observed to tap her feet, but the movement seemed random and did not match musical structure. Pt was cooperative, just requiring increased level of prompting to maintain engagement in interaction. Will continue to follow. Goals Addressed: Improved orientation as evidenced by: increased musical behavior within musical structure increased meaningful verbal interaction Improved mood as evidenced by: increased engagement Music Intervention: Music listening Plan: Music Therapy will follow throughout hospitalization with 1-2 sessions per week. Please refer to Music Therapy Inpatient flowsheet for more data. Meryl Nava MM, JAMIL Music Therapist [facility] [employer] [facility] 01-30-2024 Note Music Therapy Note Referral Received. Chart reviewed; history noted. Thank you. Patient Identified by Verbalizing name, Wristband, and With nurse Narrative Note: Date/Time: 01/30/2024 at [phone]. Time spent: 12 minutes. Music Therapist (MT) entered room, found patient lying in bed, resting with eyes closed, roll belt on, displaying flat affect, alone in room. When greeted, pt made appropriate eye contact and verbally responded, yet pt kept eyes closed during majority of session and spoke in a very soft volume. MT educated the role and risk/benefits of therapy. Pt consented to music therapy service. Upon assessment, pt seemed more somnolent today, required constant prompting to elicit verbal responses. MT facilitated a music listening experience to pt's self-identified preferred musical genre for cognitive stimulation. Pt responded to intervention with increased range of affect and increased level of engagement. Pt participated by mouthing lyrics to familiar songs but did not sing. Pt was observed to tap her feet, but the movement seemed random and did not match musical structure. Pt was cooperative, just requiring increased level of prompting to maintain engagement in interaction. Will continue to follow. Goals Addressed: Improved orientation as evidenced by: increased musical behavior within musical structure increased meaningful verbal interaction Improved mood as evidenced by: increased engagement Music Intervention: Music listening Plan: Music Therapy will follow throughout hospitalization with 1-2 sessions per week. Please refer to Music Therapy Inpatient flowsheet for more data. Meryl Nava MM, MT- Music Therapist [facility] [employer] [facility] 01-30-[facility]24 Consult note Formatting of th is note is different from the original. OCCUPATIONAL THERAPY PROGRESS SUMMARY Patient seen from 839 to 904 on 5E unit for 25 minute treatment. SUBJECTIVE: Patient Subjective/Goals Good morning OBJECTIVE: Pain: No pain reported or noted Pain Relief Interventions Implemented: None required; No pain at this time Appearance: supine in bed upon arrival, IV, aspen collar, roll belt /Behavior: pleasant and agreeable to therapy, flat affect, minimally verbal Cognition: oriented to self. Unable to state current location/month/year. UE Status: BUE WFL for ADLS Self Care: Assistance Level NA Dep Max Mod Min CG CS DS NE I Set-Up Cues Comment Feeding x Anticipate Grooming/ Hygiene x Standing at sink to wash hands , wash face, complete oral care, and hair grooming. Min assist with hair grooming due to tangles. Able to complete other tasks with CS. Bathing: Upper Body x Simulated Bathing: Lower Body x Simulated EOB Dressing: Upper Body x Donning gown Dressing: Lower Body x Doff/dons socks. CGA provided due to mild LOB while threading socks Toileting x At toilet, completes hygiene/self care. Assist required in stand to manage brief over hips. Toilet Transfers x Sit <>toilet with use of grab bars Bed Transfer x Sit to stand from EOB with RW. Cues for technique /placement of BUE Bed Mobility x Supine to sit EOB via log roll technique. Assist at trunk for sidelying to sit. Functional mobility x Ambulate short household distance with RW, flexed posture. Decreased step length. Assist for RW management. Endurance for Self Care: Impaired Patient/Family Education: Instructed Patient in roles of therapy. Patient remained seated in bedside chair end of session. Chair alarm active.saba torso support and activity apron in place. Call ribeiro and telephone within reach. Patient instructed to call for staff assist when ready to return to bed and for all mobility. RN aware of patient location and mobility status. DME: With Patients permission ordered no equipment via upad Order. If any questions contact [facility] DME Provider at [phone]. 01/30/2024 6 Clicks Daily Activity OT Help from another person Eating meals 3 Help from another person taking care of personal grooming 3 Help from another person bathing 3 Help from another person putting on and taking off regular upper body clothing 3 Help from another person putting on and taking off regular lower body clothing 3 Help from another person toileting 3 OT 6 Clicks Score 18 6 Click Score Guidelines: 1 - Unable = Total/Dependent Assist 2 - A lot = Max/Moderate Assist 3 - A little = Minimum/Contact Guard Assist/Supervision 4 - Non = Modified [place]/Independent ASSESSMENT: ASSESSMENT: Recommend further therapy services in a Skilled Rehab Setting once medically cleared. Will continue to follow patient while in hospital as appropriate. Goals (to be achieved by discharge from acute care): ongoing Patient will perform grooming with Distant supervision Patient will dress upper body with Distant supervision Patient will dress lower body with Distant supervision Patient will perform bed mobility with Distant supervision Patient will perform bathing with Distant supervision Patient will perform toileting with Distant supervision Patient will perform bed transfers with Distant supervision Patient will perform commode transfers with Distant supervision PLAN: Continue with Plan as per Initial Evaluation. Jean Pierre Nieto OTR/L NA = Not Assessed, I = Independent, NE = Modified Independent, Sup = Supervised, Set up = Physical Assistance for Set-up Only, Min = Minimal Assistance, Mod = Moderate Assistance, Max = Max assistance; Dep = Dependent; AROM = Active Range of Motion;PROM=Passive Range of Motion; MMT = Manual Muscle Test; Shld= Shoulder; Add = Adduction; Abd = Abduction [facility] 01-30-2024 Note OCCUPATIONAL THERAPY PROGRESS SUMMARY Patient seen from 839 to 904 on 5E unit for 25 minute treatment. SUBJECTIVE: Patient Subjective/Goals Good morning OBJECTIVE: Pain: No pain reported or noted Pain Relief Interventions Implemented: None required; No pain at this time Appearance: supine in bed upon arrival, IV, aspen collar, roll belt /Behavior: pleasant and agreeable to therapy, flat affect, minimally verbal Cognition: oriented to self. Unable to state current location/month/year. UE Status: BUE WFL for ADLS Self Care: Assistance Level NA Dep Max Mod Min CG CS DS NE I Set-Up Cues Comment Feeding x Anticipate Grooming/ Hygiene x Standing at sink to wash hands , wash face, complete oral care, and hair grooming. Min assist with hair grooming due to tangles. Able to complete other tasks with CS. Bathing: Upper Body x Simulated Bathing: Lower Body x Simulated EOB Dressing: Upper Body x Donning gown Dressing: Lower Body x Doff/dons socks. CGA provided due to mild LOB while threading socks Toileting x At toilet, completes hygiene/self care. Assist required in stand to manage brief over hips. Toilet Transfers x Sit <>toilet with use of grab bars Bed Transfer x Sit to stand from EOB with RW. Cues for technique /placement of BUE Bed Mobility x Supine to sit EOB via log roll technique. Assist at trunk for sidelying to sit. Functional mobility x Ambulate short household distance with RW, flexed posture. Decreased step length. Assist for RW management. Endurance for Self Care: Impaired Patient/Family Education: Instructed Patient in roles of therapy. Patient remained seated in bedside chair end of session. Chair alarm active.saba torso support and activity apron in place. Call ribeiro and telephone within reach. Patient instructed to call for staff assist when ready to return to bed and for all mobility. RN aware of patient location and mobility status. DME: With Patients permission ordered no equipment via upad Order. If any questions contact [facility] DME Provider at [phone]. 01/30/2024 6 Clicks Daily Activity OT Help from another person Eating meals 3 Help from another person taking care of personal grooming 3 Help from another person bathing 3 Help from another person putting on and taking off regular upper body clothing 3 Help from another person putting on and taking off regular lower body clothing 3 Help from another person toileting 3 OT 6 Clicks Score 18 6 Click Score Guidelines: 1 - Unable = Total/Dependent Assist 2 - A lot = Max/Moderate Assist 3 - A little = Minimum/Contact Guard Assist/Supervision 4 - Non = Modified [place]/Independent ASSESSMENT: ASSESSMENT: Recommend further therapy services in a Skilled Rehab Setting once medically cleared. Will continue to follow patient while in hospital as appropriate. Goals (to be achieved by discharge from acute care): ongoing Patient will perform grooming with Distant supervision Patient will dress upper body with Distant supervision Patient will dress lower body with Distant supervision Patient will perform bed mobility with Distant supervision Patient will perform bathing with Distant supervision Patient will perform toileting with Distant supervision Patient will perform bed transfers with Distant supervision Patient will perform commode transfers with Distant supervision PLAN: Continue with Plan as per Initial Evaluation. Jean Pierre Nieto, OTR/L NA = Not Assessed, I = Independent, NE = Modified Independent, Sup = Supervised, Set up = Physical Assistance for Set-up Only, Min = Minimal Assistance, Mod = Moderate Assistance, Max = Max assistance; Dep = Dependent; AROM = Active Range of Motion;PROM=Passive Range of Motion; MMT = Manual Muscle Test; Shld= Shoulder; Add = Adduction; Abd = Abduction [facility] 01-30-2024 Note GERIATRIC PROGRESS N OTE Patient Name: Bernardino Guzman Location: [place] [address] Attending: Tyree Muñoz MD Cc; nauseated HIPAA: Verbal permission granted from patient to discuss case, including protected health information, in front of family dtr and granddtr in room at the time of the evaluation. Hr Generalist: Not needed - patient preferred language is [place] HPI: 83 year old year old female with a history of atrial fib on warfarin, CAD, CVA , HTN type 2 DM, ( a1 c? ) mild to moderate dementia, anxiety with hx of falls, recently with head strike 3 wk prior to this admission, who was found down at home unwitnessed fall and taken to [facility], unable to recall the event, became nauseated, and INR 2.85, UA suggestive of UTI, given rocephen x 1, and CTN was not done prior to transfer to ED was category 2 trauma, f presenting to ED on 01/28/2024 for dx of type 2 Dens fracture. 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 Depression, vs due to dementia ; family agrees with celexa - debility loss of muscle mass and decine in function family in agreement with snf - ICA stenosis bilat and rt vertebral artery stenosis , discussed with family, management per trauma team - 01/28 after eating well, began vomiting ,(also had an oxycodone then ) ? If due to that or bactrim changed to clear liquid HEDIS SPECIALIST consulted - started on celexa 10mg for depression anxiety delirium /dementia - GOC discussion changed to DNRCCA DNI , no feeding tube, goal improve nutrition and strength at rehab - upright films c spine completed and eval by Dr Maya , follow up in 2 wk, ASpen collar at all times, neurosurg signed off - director field services did not see pt, ; recommends Boost GC max Tid 01/30/24 seen by HEDIS SPECIALIST ; suspects esophageal dysphagia ? Oropharyngeal dyspahgia component , failied YSP , Recommendations ; Patient appears to be at a low-moderate risk for dysphagia given these findings paired with multiple dysphagia risk factors. Given diminished pulmonary clearance, diminished immune response, and diminished bacteriological contents patient risk for aspiration related pulmonary complication is currently perceived to be low (please see chart above for impacting factors). Given these consideration would suggest initiation of Dysphagia Diet Level 3-Mechanically Advanced/thin consistency diet with set up assist and intermittent supervision. An instrumental swallow via MBS may be beneficial in r/o airway invasion with PO intake given heightened risk with presence of C5-6 osteophytes and subtle s/sx of oropharyngeal incoordination. If this does not align with patient GOC, then would suggest ongoing clinical monitoring of diet tolerance and pulmonary health for early detection of potential aspiration. Would suggest considering GI workup for suspected esophageal phase dysphagia given h/o prandial emesis should patient/family wish to further assess this issue. Family at bedside, states pt wanted to stay in bed Discussed that pt will be able to eat better if up in chair for all meals , has timed toileting and engaged with family during day Discussed ways to approach pt, ie say lets get up to the chair or go for a walk Dtr concerned about vomiting , states pt has not been eating for such a long time that she is not used to food Pt does not voice concerns has paucity of words GERIATRIC ROS: Cognitive Status: mild dementia mild hypoactive delirium resolving Mood: pleasant cooperative Sleep: ok Appetite: poor sipping gingerale Pain: none Mobility: walked with assistance of one to bathroom and toileted , did hygiene herself Bowel Function: slightly loose bm today Bladder Function: continent with timed toileting dark Restraint use in last 24 hr: yes rollbelt , chair saba Antipsychotic/opioid/benzo in last 24 hr: Celexa 10mg /d Oxycodone 2.5mg prn got one dose late 01/28 Melatonin 3mg/d aricept 5mgat night Pt on bactrim for UTIstarted late 01/28 EKG QTc: 474 Current Medications: Current Facility-Administered Medications: lactated ringers iv infusion, , Intravenous, Continuous, Elder Rodgers PA-Sury, Last Rate: 50 mL/hr at 01/29/24 1808, New Bag at 01/29/24 180 sulfamethoxazole-trimethoprim 800-160 MG (BACTRIM DS) tablet, 1 Tablet, Oral, 2x Daily, Elder Rodgers PA-C, 1 Tablet at 01/29/242125 enoxaparin (LOVENOX) 100 mg/mL custom injection 27 mg, 0.5 mg/kg (Mathews), Subcutaneous, 2x Daily, Elder Rodgers PA-C, 27 mg at 01/29/242125 donepezil (ARICEPT) tablet, 5 mg, Oral, At Bedtime, Elder Rodgers PA-Sury, 5 mg at 01/29/242125 [START ON 02/05/2024] donepe (more content not included)... [facility] 01-30-2024 Consult note Associated Order (s): IP HEDIS SPECIALIST SERVICE REQUEST SPEECH-LANGUAGE PATHOLOGY RE-EVAL [id number]/2 Referral received, chart reviewed and history is noted. Time In: 914 Time Out: 926 Session Duration: 12 minutes Patient identified by patient/armband stating name and date of . Date of Admit: 01/28/24 Reason for Consult: post prandial emesis concern for dysphagia (per family not new) Patient currently on HEDIS SPECIALIST caseload with initial evaluation completed 01/27 History/Diagnosis: 83 year old female w/ pmh significant for a fib on warfarinn and plavix, mild dementia, CAD, CVA, HTN, and DM2 brought in by EMS from an outside hospital ([facility] [place] following an unwitnessed fall w/ a daignosis of a Type 2 Dens Fracture. 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 [place] unable to complete on 05/14/23 with neuro INJURIES: Type 2 Dens Fracture No past medical history on file. No past surgical history on file. Precautions: Delirium, Fall; DNRCCA-DNI Imaging: XR C-Spine 01/29/24 On the lateral view the C-spine is visible to the C5 level. The known odontoid fracture is questionably visible on the lateral view. There is loss of lordosis lower cervical spine and disc space narrowing and osteophytes at C5-6. The prevertebral soft tissues have normal contours. The bones are osteopenic. The left C3-4 neuroforamen is narrowed by bony encroachment. An implanted cardiac device is partially visualized. The aorta has wall calcifications. The lung apices are hyperinflated. Prior Level of Functioning: Per collateral information from family notes the following: gradual memory changes for 2 yrs, dx with dementia 1.5yr ago and a rapid decline over the past 3 months with withdrawal, staying in bed , self neglect, decreased interest in toileting grooming, loss of memory, forgetting family, not eating and increased difficulty with executive function, personality changes, no wandering , no behavioral disturbance, no Paranoia, but may have depression , sleeping all of the time not eating SUBJECTIVE: Patient subjective/goals: The patient was alert and cooperative throughout seated upright in chair with torso support. Busy apron present and within reach, calm visual/auditory stim playing on tv. Pain: Scale (if yes): 0/10 Location: N/A OBJECTIVE: Language/Cognition: IMP, but able to follow basic commands; Pragmatic Behavior: calm, cooperative. Current Diet -- Dentition Full upper and lower dentures Dental Repair Ill fitting dentures Oral Hygiene WFL Oxygen Requirement Room air SpO2 -- Temperature 97.9 Chest Imaging No current imaging of the aerodigestive tract. WBC WNL Clinical Assessment: Oral Motor Exam: Lingual ROM: Protrusion: + Elevation/depression: + Lateralization: + Labial ROM: Protrusion: + Retraction: + Patient administered all consistencies presented during this assessment. [place] Swallow Protocol: State: Alert; maintained across session Oral Mechanism Assessment: Tongue ROM: + Facial Symmetry: + Smile: + Pucker: + 3-ounce water swallow challenge: Positioning: Upright in chair Mode of administration: Straw, per patient preference Consecutive drinking of 3oz Thin water: Not achieved; patient self initiates discontinuation of drinking stating It's warm. I like cold water Cough/Throat Clear: (-) Absent . X FAIL: Inability to drink the entire 3 ounces (90cc)in sequential swallows due to stopping/starting or patient exhibits over signs of aspiration (I.e. coughing or choking, either during or immediately after completion) . PASS: Complete and uninterrupted drinking of all 3 ounces (90cc) of water without overt signs of aspiration (I.e. coughing or choking, either during or immediate after completion) *The [place] Swallow Protocol (YSP) is a standardized measure with high high sensitivity(96.5%) and negative prediction value (97.9%). Clinical Assessment Consistencies presented Puree: Applesauce via tsp x3 Soft/Regular Solid: 1/2 raj cracker Thin Liquid: Water via straw x~5oz Oral Phase - Adequate oral acceptance - Complete bolus breakdown - Functional oral transit - Full oral clearance achieved Pharyngeal Phase - Successive swallows were elicited - No gloria overt s/s of airway compromise exhibited - Audible swallows are frequently noted and paired with brief stress cue (facial grimace, eyebrow pinch, head pull back, ) - Vocal quality ? wet intermittent throughout thin liquid trials, not gurgled. RISK ASSESSMENT Dysphagia Risk Factors: Predisposing: Advanced age Dementia Clinical signs of possible chronic dysphagia: None Post prandial emesis Precipitating: UTI Type 2 Dens Fracture Osteophytes at C5-6 Factors contributing to aspiration related pulmonary complications: Given diminished pulmonary clearance, diminished immune response, and diminished bacteriological contents patient risk for aspiration related pulmonary complication is currently perceived to be low. Positive Impact Negative impact Pulmonary Clearance Medical Conditions (COPD, CHF, asthma) X Reduced function (reduced mobility/increased dependence for care) X Pulmonary health (h/o smoking, need for supplemental O2, need for inhaled medications) X Immune Response Nutritional Status X Medical co-morbidities X Presence of current infectious process X Bacteriological Contents Dependencies for oral care X Dental care/repair X Oral hygiene X Xerostomia X Diabetes X Acid Suppression therapy (PPI, H2 Blockers) X Education: The patient was educated on the results and recommendations of this evaluation. The patient will require additional education and caregiver involvement to demo understanding of educated material. ASSESSMENT: Diagnosis: Suspected esophageal dysphagia; ? Oropharyngeal component Impression: Bedside swallow evaluation conducted with administration of [place] Swallow Protocol (YSP) yielding 'fail' secondary to non consecutive consumption of target volume related to patient dislike for room temp water. Additional clinical assessment revealed multiple consecutive sips taken with intermittent audible swallows present indicative of reduced coordination. No gloria s/s of airway invasion are exhibited; however, question slight change in vocal quality with thin liquid sips intermittently. There is currently no aerodigestive tract imaging available for review and no documented c/f pulmonary infection. Patient appears to be at a low-moderate risk for dysphagia given these findings paired with multiple dysphagia risk factors. Given diminished pulmonary clearance, diminished immune response, and diminished bacteriological contents patient risk for aspiration related pulmonary complication is currently perceived to be low (please see chart above for impacting factors). Given these consideration would suggest initiation of Dysphagia Diet Level 3-Mechanically Advanced/thin consistency diet with set up assist and intermittent supervision. An instrumental swallow via MBS may be beneficial in r/o airway invasion with PO intake given heightened risk with presence of C5-6 osteophytes and subtle s/sx of oropharyngeal incoordination. If this does not align with patient GOC, then would suggest ongoing clinical monitoring of diet tolerance and pulmonary health for early detection of potential aspiration. Would suggest considering GI workup for suspected esophageal phase dysphagia given h/o prandial emesis should patient/family wish to further assess this issue. PLAN: Treatment Modalities: dysphagia Frequency: 1-2x f/u for diet tolerance and plan Goals: Short Term Goals (to be achieved by discharge from hospital): The patient will participate in MBS to define current swallow function and to guide an evidenced based treatment plan. The patient will consume Dysphagia Diet Level 3-Mechanically Advanced/thin consistency diet utilizing aspiration precautions and compensatory strategies without clinical indication of decline in cardiopulmonary status across 3-5< days. The patient/caregiver/family will demonstrate adequate return of knowledge of all compensatory strategy/instruction to effectively assist the patient in immediate safety with oral intake and swallowing. Prognosis: (+) Cooperation (-) Age (+) Family/caregiver support (-) Cognitive impairments (-) Presence of co-morbidities Recommendations: - May consider completion of instrumental assessment via MBS to r/o airway invasion vs close clinical monitoring of pulmonary status - Suggest considering GI workup for suspected esophageal dysphagia given h/o post prandial emesis - Dysphagia Advanced solids-Level 3 and Thin Liquids - Should patient exhibit pocketing or high volumes of oral residuals, please make the appropriate downgrade to either mechanical soft or puree solids. - Administer medications whole or crushed in puree base/carrier small bites, small sips, slow rate, OOB to chair at 90 degree angle when able; otherwise, upright at 60< degree angle for all PO intake - Rigorous oral care Q3-4 with suction toothbrush kit in order to promote moistening of mucosa and reduce risk for colonization of oropharyngeal bacteria - Patient would benefit from trial of denture adhesive to improve denture fit and mastication quality *This service will be billed as a treatment session given prior bedside swallow evaluation completed and no documented decline in status to warranted a new comprehensive Evaluation' Jeri Burris CCC-HEDIS SPECIALIST, MS-CCC/HEDIS SPECIALIST Speech and Language Pathologist Secure chat preferred ([phone] M,T,TH, F) Pager [phone] [facility] 01-30-2024 Note SPEECH-DRYING CAN WORKER OLOGY RE-EVAL 5-708/2 Referral received, chart reviewed and history is noted. Time In: 914 Time Out: 926 Session Duration: 12 minutes Patient identified by patient/armband stating name and date of . Date of Admit: 01/28/24 Reason for Consult: post prandial emesis concern for dysphagia (per family not new) Patient currently on HEDIS SPECIALIST caseload with initial evaluation completed 01/27 History/Diagnosis: 83 year old female w/ pmh significant for a fib on warfarinn and plavix, mild dementia, CAD, CVA, HTN, and DM2 brought in by EMS from an outside hospital ([facility] [place]) following an unwitnessed fall w/ a daignosis of a Type 2 Dens Fracture. 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 [place] unable to complete on 05/14/23 with neuro INJURIES: Type 2 Dens Fracture No past medical history on file. No past surgical history on file. Precautions: Delirium, Fall; DNRCCA-DNI Imaging: XR C-Spine 01/29/24 On the lateral view the C-spine is visible to the C5 level. The known odontoid fracture is questionably visible on the lateral view. There is loss of lordosis lower cervical spine and disc space narrowing and osteophytes at C5-6. The prevertebral soft tissues have normal contours. The bones are osteopenic. The left C3-4 neuroforamen is narrowed by bony encroachment. An implanted cardiac device is partially visualized. The aorta has wall calcifications. The lung apices are hyperinflated. Prior Level of Functioning: Per collateral information from family notes the following: gradual memory changes for 2 yrs, dx with dementia 1.5yr ago and a rapid decline over the past 3 months with withdrawal, staying in bed , self neglect, decreased interest in toileting grooming, loss of memory, forgetting family, not eating and increased difficulty with executive function, personality changes, no wandering , no behavioral disturbance, no Paranoia, but may have depression , sleeping all of the time not eating SUBJECTIVE: Patient subjective/goals: The patient was alert and cooperative throughout seated upright in chair with torso support. Busy apron present and within reach, calm visual/auditory stim playing on tv. Pain: Scale (if yes): 0/10 Location: N/A OBJECTIVE: Language/Cognition: IMP, but able to follow basic commands; Pragmatic Behavior: calm, cooperative. Current Diet -- Dentition Full upper and lower dentures Dental Repair Ill fitting dentures Oral Hygiene WFL Oxygen Requirement Room air SpO2 -- Temperature 97.9 Chest Imaging No current imaging of the aerodigestive tract. WBC WNL Clinical Assessment: Oral Motor Exam: Lingual ROM: Protrusion: + Elevation/depression: + Lateralization: + Labial ROM: Protrusion: + Retraction: + Patient administered all consistencies presented during this assessment. [place] Swallow Protocol: State: Alert; maintained across session Oral Mechanism Assessment: Tongue ROM: + Facial Symmetry: + Smile: + Pucker: + 3-ounce water swallow challenge: Positioning: Upright in chair Mode of administration: Straw, per patient preference Consecutive drinking of 3oz Thin water: Not achieved; patient self initiates discontinuation of drinking stating It's warm. I like cold water Cough/Throat Clear: (-) Absent . X FAIL: Inability to drink the entire 3 ounces (90cc)in sequential swallows due to stopping/starting or patient exhibits over signs of aspiration (I.e. coughing or choking, either during or immediately after completion) . PASS: Complete and uninterrupted drinking of all 3 ounces (90cc) of water without overt signs of aspiration (I.e. coughing or choking, either during or immediate after completion) *The [place] Swallow Protocol (YSP) is a standardized measure with high high sensitivity(96.5%) and negative prediction value (97.9%). Clinical Assessment Consistencies presented Puree: Applesauce via tsp x3 Soft/Regular Solid: 1/2 raj cracker Thin Liquid: Water via straw x~5oz Oral Phase - Adequate oral acceptance - Complete bolus breakdown - Functional oral transit - Full oral clearance achieved Pharyngeal Phase - Successive swallows were elicited - No gloria overt s/s of airway compromise exhibited - Audible swallows are frequently noted and paired with brief stress cue (facial grimace, eyebrow pinch, head pull back, ) - Vocal quality ? wet intermittent throughout thin liquid trials, not gurgled. RISK ASSESSMENT Dysphagia Risk Factors: Predisposing: Advanced age Dementia Cli (more content not included)... [facility] 01-29-2024 Plan of care note Interval Neurosurgery note: Upright C-spine images completed and reviewed with Dr. Maya Plan: -Trauma primary -[place] collar at all times -please have patient follow up in clinic in two weeks with Dr. Maya -remainder per primary -Neurosurgery signing off at this time Mable Doyle MSN, WALLPAPER SCRAPER-WESTERN PHILOSOPHY PROFESSOR Neurosurgery [phone] [facility] Work Phone: 01-29-2024 Note POST- PROCEDURE NOTE Pre-procedure Diagnosis: trauma, RUE PICC Post-procedure Diagnosis: as above Proceduralist: Dr. Lux AND Dr. Grigsby A TIME OUT was performed prior to the procedure using active communication to verify correct patient, procedure, and site: Yes Procedure Note: 39.5cm catheter length, pulled back 2cm. Full report to follow in PACS/EPIC Imaging Complications: no procedural complication The patient began to vomit post-procedurally. Specimen: N/A Estimated Blood Loss: less than 5 cc Post Procedure Pain Ratin/10 Dr. Grigsby was present for the critical portion of the procedure Chris Lux MD Radiology [facility] 01-29-2024 Note PRE-PROCEDURE NOTE Procedure: RUE PICC Indication: trauma, need for IV access Site of Procedure: right Site Marked pre-procedure: Yes Pre-Procedure Pain Ratin/10 Chris Lux MD Radiology [facility] 01-29-2024 Consult note Formatting of th is note might be different from the original. Physical Therapy Attempted to see pt for tx at 15:33 however, pt was off floor at radiology. Will re-attempt as able and continue to follow pt per POC. Ingris Le, PT, DPT [facility] 01-29-2024 Consult note Associated Order (s): NUTRITION NEW CONSULT Images from the original note were not included. Initial Adult Inpatient Nutrition Assessment Reason for Visit: Consult: 83yo iwth 19 lb wt loss when on ozempic and aricept, worsenign dementia, falls weakness Nutrition Assessment: Admitting Diagnosis: TRAUMA- Fall No past medical history on file. is allergic to: Not on File Nutritionally Significant Meds: vitamin D, colace, lasix, senna, LR @ 75 cc/hr Labs: Basic Metabolic Panel 01/29/2024 01/28/2024 3:43 AM 3:19 AM Na 141 138 K 3.7 4.7 Cl 102 100 CO2 28 27 Gap 15 16 Glu 109 190 BUN 15 19 Cr 0.95 1.26 Ca 8.7 8.8 CBC (last 3 years, up to 8 values) 01/29/2024 01/28/2024 3:43 AM 3:07 AM WBC 11.7 17.0 RBC 4.74 4.77 Hgb 13.4 13.3 Hct 40.5 40.4 MCV 86 85 RDW 15.6 15.5 Plt 344 368 WBC/Diff 01/28/2024 3:07 AM Neutro% 93.7 Lymphs% 3.5 Monos% 2.5 Eos% 0.1 Basos% 0.3 Fingerstick Glucose (last 72 hours) Glucose 01/29/24 1154 188 01/29/24 0757 108 01/28/24 2045 147 01/28/24 1530 121 01/28/24 1138 108 01/28/24 0811 123 Vital sign ranges over the past 24 hours (retrieved 01/29/2024 at 2:37 PM): Tmax (24 hours): 98.8 F (37.1 C) Pulse Av.7 Min: 77 Max: 116 Systolic (24hrs), Av , Min:122 , Max:143 Diastolic (24hrs), Av, Min:44, Max:76 MAP (mmHg) Av.3 mmHg Min: 68 mmHg Max: 90 mmHg Resp Av.7 Min: 17 Max: 18 SpO2 Av.7 % Min: 98 % Max: 100 % Intake/Output Summary (Last 24 hours) at 01/29/2024 1437 Last data filed at 01/29/2024 0900 Gross per 24 hour Intake 1081.25 ml Output 700 ml Net 381.25 ml Diet Order: puree, Boost GC Max Height: 5' 4 Weight: 47.6 kg IBW: 55 kg %IBW: 87 BMI: 18.02: Underweight Nutrition Focused Physical Exam: not performed, Pt OOR Edema: none Hair/Nails/Skin: intact Estimated needs: 4680-8371 kcal/d 30-35 kcal/kg 57-72 g pro/d 1.2-1.5 g pro/kg 1440 cc/d 30 cc/kg Assessment: 83 year old year old female with a history of atrial fib on warfarin, CAD, CVA , HTN type 2 DM, ( a1 c? ) mild to moderate dementia, anxiety with hx of falls, recently with head strike 3 wk prior to this admission, who was found down at home unwitnessed fall and taken to [facility], unable to recall the event, became nauseated, and INR 2.85, UA suggestive of UTI, given rocephen x 1, and CTN was not done prior to transfer to ED was category 2 trauma, f presenting to ED on 01/28/2024 for dx of type 2 Dens fracture. Nutrition consulted for weight loss. Pt currently off the floor for standing x-ray. She is currently on puree diet per HEDIS SPECIALIST recs, with hopes of upgrading after standing xray results. No n/v/d/c. Limited weight hx to assess. BMI indicating underweight. She is receiving Boost GC Max with meals, please continue. See recs below, thank you for the consult. ? Nutrition Problems: 1. Concern for malnutrition, pending NFPE Nutrition Interventions: 1. Diet Per HEDIS SPECIALIST recs, upgrade as feasible Continue Boost GC Max TID Family has provided list of foods she likes 2. Nursing updated regarding ordering puree foods in [place] Will continue to follow Edgar Kim RD, LD Personal Pager [phone] Automatic Door Mechanic Pager: [phone] [facility] 01-29-2024 Consult note Associated Order (s): IP MUSIC THERAPY SERVICE REQUEST Music Therapy Note Referral Received. Chart reviewed; history noted. Thank you. Patient Identified by Verbalizing name and With nurse Date/Time: 01/29/2024 at [phone]. Time spent: 23 minutes. Music Therapist (MT) entered room, found patient was about to be transported to radiology. MT introduced service, including potential goals and risks/benefits to the three family members in the room - daughter, [id number], and son. We discussed ways to engage pt at home or at SNF, including putting family pictures up, setting routines, talking about mutual memories, and making sure pt has access to hearing aides, dentures, and glasses. Will continue to follow. Meryl Nava MM, JAMIL Music Therapist [place] [employer] [facility] 01-29-2024 Note Music Therapy Note Referral Received. Chart reviewed; history noted. Thank you. Patient Identified by Verbalizing name and With nurse Date/Time: 01/29/2024 at [phone]. Time spent: 23 minutes. Music Therapist (MT) entered room, found patient was about to be transported to radiology. MT introduced service, including potential goals and risks/benefits to the three family members in the room - daughter, [id number], and son. We discussed ways to engage pt at home or at SNF, including putting family pictures up, setting routines, talking about mutual memories, and making sure pt has access to hearing aides, dentures, and glasses. Will continue to follow. Meryl Nava MM, JAMLI Music Therapist [facility] [employer] [facility] 01-29-2024 Consult note Associated Order (s): IP ART THERAPY SERVICE REQUEST Art Therapy Note Referral received. Chart reviewed, history noted. Thank you. Patient identified by Verbalizing name HIPAA - Verbal permission granted from patient to discuss case, including protected health information, in front of family / friends in room at the time of session. Narrative Note: Date/Time: 01/29/2024 to 1216 to 1225 Time Spent: 9 minutes Art Therapist (AT) entered room to introduce art therapy service to patient and for initial assessment. AT found patient in room with 3 visitors at bedside. AT introduced self to patient and visitors. AT explained role of art therapy service along with risks and benefits to patient and visitors. Patient displayed appropriate affect with good eye contact. AT discussed with patient preferences for art making. Patient was agreeable for art making at a later time. AT answered questions about role of art therapy from patient visitors. AT left patient for time/privacy with visitors. Will continue to follow. Goals Addressed: Improved overall mood/anxiety management/emotion management as evidenced by: increased positive verbalizations Plan: Art therapy will follow patient focusing on Art Plan List: enhancing adjustment to hospitalization/medical situation and enhancing positive coping strategies Patient will be seen 1-2 times per week. Please refer to Art Therapy flowsheet for more data. Sloane Pruitt MA, ATR- Art Therapist, [facility] [email or web address] 01-29-2024 Note Art Therapy Note Referral received. Chart reviewed, history noted. Thank you. Patient identified by Verbalizing name HIPAA - Verbal permission granted from patient to discuss case, including protected health information, in front of family / friends in room at the time of session. Narrative Note: Date/Time: 01/29/2024 to 1216 to 1225 Time Spent: 9 minutes Art Therapist (AT) entered room to introduce art therapy service to patient and for initial assessment. AT found patient in room with 3 visitors at bedside. AT introduced self to patient and visitors. AT explained role of art therapy service along with risks and benefits to patient and visitors. Patient displayed appropriate affect with good eye contact. AT discussed with patient preferences for art making. Patient was agreeable for art making at a later time. AT answered questions about role of art therapy from patient visitors. AT left patient for time/privacy with visitors. Will continue to follow. Goals Addressed: Improved overall mood/anxiety management/emotion management as evidenced by: increased positive verbalizations Plan: Art therapy will follow patient focusing on Art Plan List: enhancing adjustment to hospitalization/medical situation and enhancing positive coping strategies Patient will be seen 1-2 times per week. Please refer to Art Therapy flowsheet for more data. Sloane Pruitt MA, [facility]- Art Therapist, [facility] [email or web address] 01-29-2024 Note Formatting of this n ote might be different from the original. ADVANCE CARE PLANNING RECORD OF DISCUSSION (Please see my progress note this date as the ACP discussion and billing included in that visit) Met in hospital room initially then moved to area at end of benavides as pt sleeping Pt unable to participate with decisions due to dementia delirium paucity of speech Present for meeting were; ADVANCED CARE PLANNING DECISION MAKER socorro franklin [phone] HCPOA available in person Tanisha rojas 1st alternate available on phone Son Luciano Guzman Dtr in law desire Myself I DISCUSSED ADVANCED CARE PLANNING ISSUES WITH THE HEALTH CARE DECISION MAKER NOTED ABOVE LIVING WILL (YES) POWER OF DRIP BOX TENDER FOR HEALTH CARE (YES) ADVANCE DIRECTIVE FOR LIFE THREATENING EVENT(YES) DISEASE (ACP DISEASE) severe malnutrition Adult failure to thrive PROGNOSIS (ACP DISEASE) fair to poor I reviewed and discussed the current condition and prognosis of (the pt) incluiding dementia, atrial fib, bilateral ICA stenosis and rt vertebral artery stenosis, recent DENS fx , hx of falls, progressive cognitive and functional decline in setting of dementia that is likley Alzheimers and vascular with the family listed above, the responsible parties . The responsible partys understanding of the patient's current condition and prognosis is good . The patient's personal values and priorities re; issues of longevity, function and comfort care/relief of pain and suffering as related by the patient or the responsible alliance party were discussed and reviewed.The family and HCPOA prioritized these values as they relate to the medical care goals. As; #1 priority attempt to improve her strength with snf stay and therapy #2 priority attempt to improve her nutrtiion and wt with food, supplements, discontinuation ozempic and taper off of aricept, # 3 decline feeding tubes as agree that this will not improve her quality of life #4 DNRCCA DNI, In my professional opinion, based on the patient's disease,prognosis and values,CPRis not indicated. I discussed what CPR is and intubation /venitlator and the possible sequelae of ICU stay s/p code situation with the family and discussed DNRCCA DNI vs DNRCC , vs full code. They agree she would never wish to be on the vent o r in ICU responsible alliance party Tanisha josé luis socorro states CPR iS NOT DESIRED Advanced directive is; (code status) DNRCCA DNI Order placed in epic and on paper form Advanced care planning referrals. Notifed SW of this and family request for info re; post snf options I gave socorro my phone number, answered all questions Christin Camara, MSN, WALLPAPER SCRAPER-WESTERN PHILOSOPHY PROFESSOR Nurse Practitioner Department of Geriatrics [place], [place] [address] pager: [phone] Electronically signed by Christin Camara, WALLPAPER SCRAPER-WESTERN PHILOSOPHY PROFESSOR at 01/29/2024 1:02 PM EDT [facility] 01-29-2024 Note ADVANCE CARE PLANNIN G RECORD OF DISCUSSION (Please see my progress note this date as the ACP discussion and billing included in that visit) Met in hospital room initially then moved to area at [facility] as pt sleeping Pt unable to participate with decisions due to dementia delirium paucity of speech Present for meeting were; ADVANCED CARE PLANNING DECISION MAKER socorro franklin [phone] HCPOA available in person Tanisha rojas 1st alternate available on phone Son Luciano Guzman Dtr in law desire Myself I DISCUSSED ADVANCED CARE PLANNING ISSUES WITH THE HEALTH CARE DECISION MAKER NOTED ABOVE LIVING WILL (YES) POWER OF DRIP BOX TENDER FOR HEALTH CARE (YES) ADVANCE DIRECTIVE FOR LIFE THREATENING EVENT(YES) DISEASE (ACP DISEASE) severe malnutrition Adult failure to thrive PROGNOSIS (ACP DISEASE) fair to poor I reviewed and discussed the current condition and prognosis of (the pt) incluiding dementia, atrial fib, bilateral ICA stenosis and rt vertebral artery stenosis, recent DENS fx , hx of falls, progressive cognitive and functional decline in setting of dementia that is likley Alzheimers and vascular with the family listed above, the responsible parties . The responsible partys understanding of the patient's current condition and prognosis is good . The patient's personal values and priorities re; issues of longevity, function and comfort care/relief of pain and suffering as related by the patient or the responsible alliance party were discussed and reviewed.The family and HCPOA prioritized these values as they relate to the medical care goals. As; #1 priority attempt to improve her strength with snf stay and therapy #2 priority attempt to improve her nutrtiion and wt with food, supplements, discontinuation ozempic and taper off of aricept, # 3 decline feeding tubes as agree that this will not improve her quality of life #4 DNRCCA DNI, In my professional opinion, based on the patient's disease,prognosis and values,CPRis not indicated. I discussed what CPR is and intubation /venitlator and the possible sequelae of ICU stay s/p code situation with the family and discussed DNRCCA DNI vs DNRCC , vs full code. They agree she would never wish to be on the vent o r in ICU responsible alliance party Maikol states CPR iS NOT DESIRED Advanced directive is; (code status) DNRCCA DNI Order placed in epic and on paper form Advanced care planning referrals. Notifed SW of this and family request for info re; post snf options I gave socorro my phone number, answered all questions Christin Camara, MSN, WALLPAPER SCRAPER-WESTERN PHILOSOPHY PROFESSOR Nurse Practitioner Department of Geriatrics [place], [place] [address] pager: [phone] [facility] 01-29-2024 Progress note Formatting of t his note might be different from the original. Social Work/Case Management: Reason for placement: PT/OT Therapies Patient level of care required : Skilled Applicant's potential for returning to community: Convalescent stay:<30 days Prognosis: Good Rehab Potential: Improve Mental/Behavioral status:Confused Affect: Calm Social Work Assessment Functional status prior to admission: family assist Community agencies active with patient: NA Support system: family Capacity for independent living/ad terminal makeup operator plan:fair Other hospital admissions within the past 60 days: No Other pertinent problems: NA [facility] 01-29-2024 Progress note Formatting of t his note might be different from the original. CASE MANAGEMENT CM aware that patient meets criteria for SNF. Met with patient and family on unit to discuss dispo. Patient open and agreeable to SNF placement. CM provided patient and family the quality and resource use measure data from available post-acute (PAC) providers, that best align with the patient's treatment goals and preferences from the medicare.gov compare site for SNF. [place] of Choice was provided to the patient/patient traffic representative. For SNF: RN/MD to complete [employer]. CM portion of GoldenRod-complete. [id number] to be initiated in [facility] Pt will require a pre-cert. Patient/family only had one SNF choice, referral submitted in [facility]. Case management will continue following patient for further discharge needs as warranted. Alicia YINGN RN CMSRN PRN Burial Vault Setter [facility] 01-29-2024 Note GERIATRIC PROGRESS N OTE Patient Name: Bernardino Guzman Location: [place] [address] Attending: Tyree Muñoz MD Cc; I am ok HIPAA: Verbal permission granted from patient to discuss case, including protected health information, in front of family dtr son , dtr in law in room at the time of the evaluation. Hr Generalist: Not needed - patient preferred language is Australian HPI: 83 year old year old female with a history of atrial fib on warfarin, CAD, CVA , HTN type 2 DM, ( a1 c? ) mild to moderate dementia, anxiety with hx of falls, recently with head strike 3 wk prior to this admission, who was found down at home unwitnessed fall and taken to [facility], unable to recall the event, became nauseated, and INR 2.85, UA suggestive of UTI, given rocephen x 1, and CTN was not done prior to transfer to ED was category 2 trauma, f presenting to ED on 01/28/2024 for dx of type 2 Dens fracture. 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 Depression, vs due to dementia ; family agrees with celexa - debility loss of muscle mass and decine in function family in agreement with snf Ros pt unreliable historian due to dementia and probable hypoactive delirium GERIATRIC ROS: Cognitive Status: Alert, fluctuating level of consciousness, mild dementia, and Oriented x to person family hospital month yr Mood: keeps eyes closed lying in bed, needed much coaxing to get up Sleep: ok during night Appetite: poor drank boost pureed , thin Pain: none Mobility: min assist transfer to chair Bowel Function: incontinent of stool Bladder Function: incontinent Restraint use in last 24 hr: none Antipsychotic/opioid/benzo in last 24 hr: Oxocodone 2.5mg to 5mg q 4hour prn Atarax prn 25 at bed Seroqeul 25mg did not receive Aricept 5 mg/d Melatonin 3mg/d EKG 01/28 QTc: no EKG done Current Medications: Current Facility-Administered Medications: cefTRIAXone (ROCEPHIN) 1,000 mg in dextrose 50 mL ivpb, 1,000 mg, Intravenous, Q24H Antibiotic, Elder Rodgers PA-C Normal consistency supplement, , Oral, 3x Daily with Meals, Christin Camara APRN-CNP, Given at 01/29/24 0800 melatonin tablet, 3 mg, Oral, At Bedtime, Christin Camara APRN-CNP acetaminophen (TYLENOL) tablet, 1,000 mg, Oral, Q6H PRN, Nic Kennedy MD oxyCODONE immediate release tablet, 2.5 mg, Oral, Q4H PRN, Nic Kennedy MD oxyCODONE immediate release tablet, 5 mg, Oral, Q4H PRN, Nic Kennedy MD lisinopril (ZESTRIL) tablet, 2.5 mg, Oral, Daily, Astrid Conrad DO, 2.5 mg at 01/29/24 0858 diltiazem (CARDIZEM CD) 24 hour capsule, 120 mg, Oral, At Bedtime, Astrid Conrad DO, 120 mg at 01/28/24 2259 furosemide (LASIX) tablet, 20 mg, Oral, Q48H, Astrid Conrad DO, 20 mg at 01/28/24 0900 donepezil (ARICEPT) tablet, 5 mg, Oral, At Bedtime, Astrid Conrad DO, 5 mg at 01/28/24 2259 hydrOXYzine (ATARAX) tablet, 25 mg, Oral, At Bedtime, Astrid Conrad DO cholecalciferol (VITAMIN D3) tablet, 25 mcg, Oral, Daily, Astrid Conrad DO, 1,000 Units at 01/29/24 0858 pravastatin (PRAVACHOL) tablet, 80 mg, Oral, Daily, Astrid Conrad DO, 80 mg at 01/29/24 0858 QUEtiapine (SEROQUEL) tablet, 25 mg, Oral, At Bedtime, Astrid Conrad DO docusate sodium (COLACE) capsule, 100 mg, Oral, 2x Daily, Nic Kennedy MD, 100 mg at 01/29/24 0858 senna (SENOKOT) tablet, 8.6 mg, Oral, At Bedtime, Nic Kennedy MD bisacodyl (DULCOLAX) 5 MG enteric coated tablet, 10 mg, Oral, Daily PRN, Nic Kennedy MD Physical Examination: BP 127/44 (BP Location: right arm) Pulse 77 Temp 98.2 ???F (36.8 ???C) (Oral) Resp 17 Ht 5' 4 (1.626 m) Wt 105 lb (47.6 kg) SpO2 98% BMI 18.02 kg/m??? OBJECTIVE: BP 127/44 (BP Location: right arm) Pulse 77 Temp 98.2 ???F (36.8 ???C) (Oral) Resp 17 Ht 5' 4 (1.626 m) Wt 105 lb (47.6 kg) SpO2 98% BMI 18.02 kg/m??? Date/Time Temp Pulse Resp Arterial BP MAP BP MAP (mmHg) SpO2 Weight O2 Device O2 Flow Rate (l/min) FiO2 (%) Who 01/29/24 0648 98.2 ???F (36.8 ???C) 77 17 -- -- 127/44 68 mmHg 98 % -- Room air -- -- SP 01/28/24 2046 98.6 ???F (37 ???C) 116 18 -- -- 143/54 80 mmHg 100 % -- Room air -- -- KW 01/28/24 1331 99.1 ???F (37.3 ???C) 71 18 -- -- 116/49 67 mmHg 98 % -- Room air -- -- MO 01/28/24 0650 99 ???F (37.2 ???C) 92 18 -- -- 131/61 81 mmHg 98 % -- Room air -- -- SW Wt Readings from Last 10 Encounters: 01/28/24 105 lb (47.6 kg) General; frail pale chronically ill appearing elderly female lying in bed , wearing aspen collar no distress, alert and oriented [facility] family month yr, not reason for admission not date day events of yesterday Attention ; UB CAM + CAM + in all 4 domains; 1, acute onset and (more content not included)... [facility] 01-29-2024 Progress note Formatting of t his note might be different from the original. PICC team at bedside to place access, poor venous presentation. Unable to place access at bedside primary rn made aware. [facility] 01-28-2024 Consult note Associated Order (s): IP GERIATRIC CONSULT Images from the original note were not included. GERIATRIC CONSULTATION Patient Name: Bernardino Guzman Location: [place] [address] Attending: Tyree Muñoz MD PCP: No primary care provider on file. Apurva Tatum [phone] = pCP [facility] Geriatric Medicine team has been consulted to provide recommendations for the following problem(s): Evaluate older adult with co-morbid medical problems and recent trauma Evaluate cognitive problems - delirium, dementia, and/or depression Multiple medications effecting the older adult Our opinion has been requested to help clarify the presenting problem(s) and provide medication evaluation and recommendations, disease management recommendations, and recommendations for an appropriate plan of care. The following note reflects my opinion and services performed, as well as recommendations pertaining to treatments, medications and post-acute care History was obtained by: discussion with patient's family/responsible alliance party - reliable historian discussion with nursing staff and review of chart review of hospital chart review of transfer information discussion with other physician or health care provider: andreea currie patient is NOT a reliable historian CC: I am ok I am home HIPAA: Verbal permission granted from patient to discuss case, including protected health information, in front of family / friends in room at the time of the evaluation. Hr Generalist: Not needed - patient preferred language is [place] HPI:, 83 year old year old female with a history of atrial fib on warfarin, CAD, CVA , HTN type 2 DM, ( a1 c? ) mild to moderate dementia, anxiety with hx of falls, recently with head strike 3 wk prior to this admission, who was found down at home unwitnessed fall and taken to [facility], unable to recall the event, became nauseated, and INR 2.85, UA suggestive of UTI, given rocephen x 1, and CTN was not done prior to transfer to ED was category 2 trauma, f presenting to ED on 01/28/2024 for dx of type 2 Dens fracture. Neurosurg consulted and their assessment follows; aSSESSMENT/PLAN: Pt is an 83 yo F with PMH afib, HTN, HLD, CKD, PAD (ASA & Plavix), DM, prior CVA who presents s/p FFS after slipping at her house. Upon arrival to OSH a CT C-spine was conducted which shows a Type 2 odontoid fracture for which patient was transferred to [facility] and NSGY was consulted. -No acute neurosurgical intervention -Maintain C-collar at all times -Recommend C-spine upright X-rays (including odontoid view) -Further recs pending completion of imaging Above plan was discussed with the (Chief) within 30 minutes of consult and discussed with the staff Dr. Emilia Hua, WILBERT Reason for consult: delirium , dementia PT saw pt ; ambulated 20 ft with min assist , slow, unsteady , verbal cues , recommending [facility] OT saw pt decreased step length, flexed, min assist to return to supine position HEDIS SPECIALIST saw pt ; ASSESSMENT: Diagnosis: no overt s/s of cardiopulmonary distress/decline Impression: Dysphagia: A clinical swallow evaluation is completed at bedside. [place] Swallow Protocol deferred d/t only small amounts of PO allowed per medical team. Patient presents with no overt s/s of cardiopulmonary distress/decline with PO throughout session. The patient has low risk factors for developing aspiration related complications. Instrumental swallowing assessment is not indicated at this time though HEDIS SPECIALIST to monitor need pending possible cervical injury. Cautiously recommend Dysphagia Level 1 Puree Diet with Thin Liquids. HEDIS SPECIALIST to re-evaluate next date with greater amount of PO trials (only cleared for small amounts this date). HEDIS SPECIALIST to follow with POC. It Operations Specialist saw pt ; low BMI 18.02. GERIATRIC ASSESSMENT: Cognitive Status: Alert, fluctuating level of consciousness, disoriented, moderate dementia, and delirious Per dtr ; pt had progressive memory problems and would just want to sit , stopped reading , watching tv going out and for past 2-3 months just wants to stay in bed and sleep 03/[address] [facility] memory specialist and dx with(per dtr report) frontotemporal lobe dementia and prescribed aricept 10mg/d about a yr ago. Dtr states pt has declines a lot in past 3 months functionally and physically despite the meds. Now does not wish to bath or change depends, does not eat , talking less. Keeps eyes closed more and has become so weak needs to be reminded to lift up feet to walk , feed herself. 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 Slow to eat Weight change: lost Bowel/bladder function: incontinent of bladder wears depends. Continent of stool Vision/Hearing impairment: yes but stopped wearing eye glasses , no hearing issues Ambulation: independent without device Falls: 3 in last 2 wk first one was when she fell backwards and hit her head. Dtr did not take her to ER or call 911 despite pt being on coumadin because pt declined to go to hospital, the other fall was a trip, pt walking with a shuffling gait and has to be reminded to pepper picker her feet, she moves the walker forward but not her feet. Did well in a snf 1.5 yr ago and had home PT but declined functionally since then Pt is alone and fell prior to admission unwitnessed, found down after a few hours Pain: denies CORTEZ, neck or back pain Change in ADLs: declining ADL over past yr ADL prior to ADmission Dressing: independent most of time sometime needs assistance Grooming: reminders , jndependent Bathing: dependent Toileting: minimal assistance Continence: dependent Feeding: independent Transfers: independent IADL prior to admission Transportation: dependent Grocery shopping: dependent Meal preparation: dependent Housecleaning: dependent Laundry: dependent Finances: dependent, pt signs check dtr fills it out Telephone use: dependent Medications: dependent dtr puts them in pill retail planner and gives them to her , Pt monitors her own bg on cgm Advance Care Planning: Code Status: Full Code Living Will: Yes Health Care Power of Industrial Hygiene Manager: Yes but not in media marketing manager Socorro Franklin ([phone]) , 1st alternate Critical access hospital Dtr is not sure what the forms say and will bring them in tomorrow for a goals of care discussion at 10am Review of Systems: Review of Systems Unable to perform ROS: Mental acuity HENT: Negative for hearing loss. Respiratory: Negative for shortness of breath. Cardiovascular: Negative for chest pain. Gastrointestinal: Negative for abdominal pain. Musculoskeletal: Negative for back pain and neck pain. Neurological: Negative for headaches. Social History: Living Situation: lives alone , has 4 hours of CARE NAVIGATOR most days and other family rotate in and out, but pt alone most of day/night Marital status: Number of children: 5 one of covlorenzo Primary Caregiver: socorro lawrence Supportive family or social network: yes Receiving community services: Yes Substance use:no Tobacco Use Smoking status: Never Smokeless tobacco: Never Substance Use Topics Alcohol use: Never Comment: Caffeine intake: 1-2 cups per day coffee Social Determinants of Health Tobacco Use: Low Risk (12/30/2023) Received from [facility] Patient History Smoking Tobacco Use: Never Smokeless Tobacco Use: Never Passive Exposure: Not on file Alcohol Use: Not on file Financial Resource Strain: Not on file Food Insecurity: Not on file Transportation Needs: Not on file Physical Activity: Not on file Stress: Not on file Social Connections: Not on file Intimate Partner Violence: Not on file Depression: Not at risk (01/03/2023) Received from [facility] PHQ-2 Patient Health Questionnaire-2 Score: 1 Housing Stability: Not on file Utilities: Not on file Family History: neg for dementia No family history on file. Diabetes Mother Cancer Father Past Medical History: No past medical history on file. Past Medical History: Diagnosis Date Arthritis Atrial fibrillation (CMS/HCC) CAD (coronary artery disease) (CMS/HCC) CVA (cerebral vascular accident) (CMS/HCC) Diabetes (CMS/HCC) Gallbladder disease Heart disease Hypertension (CMS/HCC) Kidney disease Peripheral vascular disease (CMS/HCC) Stroke (CMS/HCC) Type 2 diabetes mellitus (CMS/HCC) Past Surgical History: No past surgical history on file. Past Surgical History: Procedure Laterality Date A-V CARDIAC PACEMAKER INSERTION CARPAL TUNNEL RELEASE Left right- 02/08/20 CHOLECYSTECTOMY COLOSTOMY 1999 GALLBLADDER HYSTERECTOMY INSERT / REPLACE / REMOVE PACEMAKER OTHER SURGICAL HISTORY 2010 LIPITOR VEIN SURGERY Bilateral Home Medications: Dtr reports aricept is 10mg d/ Tylenol prn Asa 81mg D fiber pill Lasix 20mg every other day Vit d 1000 international units Diltiazem 180mg /d Ozemic 1mg /d Warfarin 2mg /d (Seroquel is not on home med list) No current facility-administered medications on file prior to encounter. Current Outpatient Medications on File Prior to Encounter Medication Sig Dispense Refill Cholecalciferol (Vitamin D3) 25 MCG (1000 UT) CAPS Take 25 mcg by mouth daily. diltiazem (Dilt-XR) 120 MG XR capsule Take 120 mg by mouth at bedtime. donepezil (ARICEPT) 5 MG tablet Take 5 mg by mouth at bedtime. furosemide (LASIX) 20 MG tablet Take 20 mg by mouth every other day. hydrOXYzine pamoate (VISTARIL) 25 MG capsule Take 25 mg by mouth at bedtime. lisinopril (ZESTRIL) 2.5 MG tablet Take 2.5 mg by mouth daily. QUEtiapine (SEROQUEL) 25 MG tablet Take 25 mg by mouth at bedtime. simvastatin (ZOCOR) 40 MG tablet Take 40 mg by mouth daily. at bedtime warfarin (COUMADIN) 2 MG tablet Take 2 mg by mouth daily. Current Medications: Current Facility-Administered Medications: acetaminophen (TYLENOL) tablet, 1,000 mg, Oral, Q6H PRN, Nic Kennedy MD oxyCODONE immediate release tablet, 2.5 mg, Oral, Q4H PRN, Nic Kennedy MD oxyCODONE immediate release tablet, 5 mg, Oral, Q4H PRN, Nic Kennedy MD lisinopril (ZESTRIL) tablet, 2.5 mg, Oral, Daily, Astrid Conrad DO, 2.5 mg at 01/28/24 0900 diltiazem (CARDIZEM CD) 24 hour capsule, 120 mg, Oral, At Bedtime, Astrid Conrad, furosemide (LASIX) tablet, 20 mg, Oral, Q48H, Astrid Conrad, , 20 mg at 01/28/24 0900 donepezil (ARICEPT) tablet, 5 mg, Oral, At Bedtime, Astrid Conrad, hydrOXYzine (ATARAX) tablet, 25 mg, Oral, At Bedtime, Astrid Conrad, cholecalciferol (VITAMIN D3) tablet, 25 mcg, Oral, Daily, Astrid Conrad, , 1,000 Units at 01/28/24 0900 pravastatin (PRAVACHOL) tablet, 80 mg, Oral, Daily, Astrid Conrad, , 80 mg at 01/28/24 0900 QUEtiapine (SEROQUEL) tablet, 25 mg, Oral, At Bedtime, Astrid Conrad, docusate sodium (COLACE) capsule, 100 mg, Oral, 2x Daily, Nic Kennedy MD, 100 mg at 01/28/24 0900 senna (SENOKOT) tablet, 8.6 mg, Oral, At Bedtime, Nic Kennedy MD bisacodyl (DULCOLAX) 5 MG enteric coated tablet, 10 mg, Oral, Daily PRN, Nic Kennedy MD lactated ringers iv infusion, , Intravenous, Continuous, Nic Kennedy MD, Last Rate: 75 mL/hr at 01/28/24 0915, New Bag at 01/28/24 0915 cefTRIAXone (ROCEPHIN) 1,000 mg in dextrose 50 mL ivpb, 1,000 mg, Intravenous, Q24H Antibiotic, Astrid Conrad DO, 1,000 mg at 01/28/24 1623 Medications related to this geriatric consult : Oxycodone 2.5mg to 5mg q 4hour prn none Seroquel just ordered 25mg by primary team Atarax jurst ordered by primary team Allergies: Not on File Physical Examination: Weight history: 111 lbs - November 2023; 114 lbs - October 2023; 121 lbs - Jul 2023 124 lbs - January 2023 per Care Everywhere Weight Only Weight 01/28/2024 3:09 AM 105 lb 19 lb wt loss since July Last ekg QTc no EKG in media marketing manager BP 116/49 (BP Location: right arm) Pulse 71 Temp 99.1 F (37.3 C) (Oral) Resp 18 Ht 5' 4 (1.626 m) Wt 105 lb (47.6 kg) SpO2 98% BMI 18.02 kg/m OBJECTIVE: BP 116/49 (BP Location: right arm) Pulse 71 Temp 99.1 F (37.3 C) (Oral) Resp 18 Ht 5' 4 (1.626 m) Wt 105 lb (47.6 kg) SpO2 98% BMI 18.02 kg/m Physical Exam Vitals and nursing note reviewed. Constitutional: General: She is not in acute distress. Appearance: She is not toxic-appearing or diaphoretic. Comments: Chronically ill appearing elderly female pale lying In dark room in bed wearing aspen collar, keeps eyes closed most of time, but later opened them identified dtr and granddtr with a little difficulty , paucity of speech HENT: Head: Atraumatic. Comments: Temporal wasting Oral mucosa dry Speech soft Hearing intact Nose: Nose normal. Eyes: General: No scleral icterus. Conjunctiva/sclera: Conjunctivae normal. Neck: Comments: Did not remove aspen collar to assess neck Cardiovascular: Rate and Rhythm: Normal rate and regular rhythm. Heart sounds: Normal heart sounds. No murmur heard. No gallop. Pulmonary: Effort: Pulmonary effort is normal. No respiratory distress. Breath sounds: Normal breath sounds. No stridor. No wheezing, rhonchi or rales. Abdominal: General: Bowel sounds are normal. There is distension. Palpations: There is no mass. Tenderness: There is no abdominal tenderness. There is no right CVA tenderness, left CVA tenderness or guarding. Comments: Suprapubic fullness Pure wick cannister dry Genitourinary: General: Normal vulva. Rectum: Normal. Musculoskeletal: General: No swelling or deformity. Right lower leg: No edema. Left lower leg: No edema. Skin: Coloration: Skin is pale. Skin is not jaundiced. Findings: Bruising present. Neurological: Mental Status: She is alert. She is confused. GCS: GCS eye subscore is 4. GCS verbal subscore is 4. GCS motor subscore is 6. Cranial Nerves: No cranial nerve deficit, dysarthria or facial asymmetry. Sensory: Sensation is intact. Motor: Weakness and atrophy present. No tremor, abnormal muscle tone or seizure activity. Comments: Did not assess gait Neg cogwheel rigidity Slow to answer questions and respond Paucity of speech Neg bradykinesia Neg masked facies ? Psychiatric: Attention and Perception: She is inattentive. She does not perceive auditory or visual hallucinations. Mood and Affect: Affect is blunt. Speech: Speech is delayed. Behavior: Behavior is slowed and withdrawn. Behavior is cooperative. Thought Content: Thought content is not paranoid or delusional. Thought content does not include homicidal or suicidal ideation. Thought content does not include homicidal or suicidal plan. Cognition and Memory: Cognition is impaired. Judgment: Judgment is not impulsive or inappropriate. Comments: UB CAM + for delirium in all domains Thinks she is at home Oriented to person dtr , granddtr Cannot recall she is in hospital or why she is here Even after re-orientation Not oriented to day date month, oriented to yr Not to potus; martha Cannot say days of wk backwards Abbott diagnostic studies personally reviewed: CBC 01/28/2024 3:07 AM WBC 17.0 RBC 4.77 Hgb 13.3 Hct 40.4 MCV 85 RDW 15.5 Plt 368 BMP (last 1 year, up to 8 values) 01/28/2024 3:19 AM Na 138 K 4.7 Cl 100 CO2 27 Gap 16 Glu 190 BUN 19 Cr 1.26 Ca 8.8 eGFR 42 LFT's (last 3 years, up to 8 values) No lab values to display. TSH No lab values to display. No results found for: B12 , VITD25 01/28/2024 3:07 AM 01/28/2024 3:19 AM HIV Ag-Ab Screen Non-Reactive Lactate 1.4 No results found for: HBA1C Fingerstick Glucose (last 72 hours) Glucose 01/28/24 1530 121 01/28/24 1138 108 01/28/24 0811 123 Imaging personally reviewed and agree with the findings of the radiologist No results found for this or any previous visit. CTAneck 01/28/24 FINDINGS: Aortic Arch: Aortic atherosclerotic calcification with this extends into the origins of the branch vessels. Moderate atherosclerotic stenosis of the proximal bilateral subclavian arteries. Carotid Arteries Right Common Carotid: Mild to moderate scattered atherosclerotic stenoses. Right Internal Carotid: Atherosclerotic plaque in the bulb and proximal ICA produces severe (>70%) ICA stenosis. Left Common Carotid: Mild scattered atherosclerotic stenoses. Left Internal Carotid: Atherosclerotic plaque in the bulb and proximal ICA produces severe (>70%) ICA stenosis. Vertebral Arteries: Moderate atherosclerotic stenosis of the proximal left vertebral artery. Severe stenosis at the origin of the right vertebral artery. Bilateral proximal intradural vertebral arteries demonstrate moderate atherosclerotic stenosis. Other: Minimally displaced type II odontoid fracture and comminuted fracture of the basion. Associated small volume epidural hematoma extending from the craniocervical junction to C3-C4 and causes abutment of the anterior cord at the cervicomedullary junction. No evidence of a soft tissue mass or lymphadenopathy in the neck or superior mediastinum. 2-3 mm nodules seen in the bilateral peripheral lung apices. IMPRESSION: No evidence of significant cerebrovascular injury. Advanced atherosclerotic disease resulting in severe stenosis ( >70%) of the proximal ICAs and severe stenosis at the right vertebral artery origin. Unable to see CTH from 01/27/24 CTH 05/08/23 COMPARISON: 11/12/2022. TECHNIQUE: Routine. All CT scans [...] and visualized paranasal sinuses are essentially clear. 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, possibly Alzheimers without behavioral disturbance, plus vascular as hx of lacunar infarct, vs primary progressive aphasia due to limited verbal output, # severe stenosis of proximal ICAs and severe stenosis of rt vertebral artery # acute delirium due to trauma and uti and hospitalization sleep deprivation Per collateral information from family notes the following: gradual memory changes for 2 yrs, dx with dementia 1.5yr ago and a rapid decline over the past 3 months with withdrawal, staying in bed , self neglect, decreased interest in toileting grooming, loss of memory, forgetting family, not eating and increased difficulty with executive function, personality changes, no wandering , no behavioral disturbance, no Paranoia, but may have depression , sleeping all of the time not eating - neg family hx of dementia - I reviewed the report for imaging at [facility] but could not view imaging - reviewed the CTA neck which shows; Advanced atherosclerotic disease resulting in severe stenosis ( >70%) of the proximal ICAs and severe stenosis at the right vertebral artery origin. Per neuro note on 12/11/23 by john Hensley CHARGING MACHINE OPERATOR in italics CT of the brain without contrast at [facility] on 05/08/23: No acute intracranial process or significant change from 11/12/22. 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 Vitamin B12 and TSH at [facility] on 04/16/23: Unremarkable. Mild dementia, unspecified dementia type, unspecified whether behavioral, psychotic, or mood disturbance or anxiety (CMS/HCC) It is my impression that the patient has dementia which may represent Alzheimer's disease. Daughters report progressive cognitive decline in the patient. They also report the patient has lost interest in many of her prior hobbies such as watching western movies. There has been suspicion for concurrent primary progressive aphasia, as the patient has limited verbal output. 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 However, I would also consider pseudodementia and possible depression contributing to her symptoms. The patient denies depression. CT of the brain on 05/08/23 identified mild generalized cerebral volume loss, white matter changes, and a small chronic lacunar infarct. Vitamin B12 level and TSH on 04/16/23 were unremarkable. Donepezil was not tolerated due to GI distress. Seroquel has seemingly improved her visual hallucinations and sleep. PLAN: - Increase Seroquel 25 mg by mouth once a day at bedtime. I have discussed potential side effects of this medication (including cardiovascular effects and increased mortality risk) with the patient and daughter. They accept these risks from a quality of life perspective understanding that the patient could suffer life-threatening side effects to this medication, and they wish to continue. - Sleep hygiene, brain stimulation, physical activity, healthy diet and compensatory memory techniques discussed - I advised the patient and her daughter that I recommended NO driving and 03/02 supervision of the patient for safety purposes. They verbalize understanding. I discussed potential safety risks of leaving the patient unsupervised including accidental injury - Consideration has been given to neuropsych evaluation, but I do not believe the patient would not be able to tolerate testing given her inability to complete a MOCA - prior cognitive testing . [place] unable to complete on 05/14/23 with neuro - recommend TSH, B12 syphilis - HEDIS SPECIALIST for cognitive-linguistic evaluation cognition, already following -WBc is 17 , antibx for UTI per primary team - sodium is 138 stable - creat 1.26 baseline - agree with decrease aricept from 10mg to 5mg and recommend consider tapering down further over a month as pt lost almost 20lb and aricept can cause bradycardia syncope and anorexia - recommend decrease seroquel to 12.5mg if it is absolutely needed. Pt sleeps all day and all night at home and this is sedating And family confirm she was not taking this at home. - avoid antipsychotics if possible -ordered music and art therapy - discussed with dtr that pt lacks insight into her deficits and has declined cognitively and functionally and cannot safely make a decision re; not going to hospital after a head strike on coumadin. She likely will not be able to make a safe decision re; discharge and care needs after snf. Recommended discussing snf /AL memory unit etc, or increased home services. -continue Delirium Precautions; - recommend adding Melatonin 3 mg at 1900 to restore sleep/wake cycle ordered, pt worked nights her whole life and is used to being up at night - Encourage behavioral modification, redirection, support from family members, perceptual needs should be met before use of chemical restraints - Minimize use of physical restraints whenever possible - Provide environmental cues (clock, calender, names of care providers where the patient can see them clearly). - [place] patient repeatedly throughout the day (clocks, calenders, soft lighting) - Sleep hygiene: minimize sedatives, particularly benzodiazepines - Pain control: Optimize non-narcotic strategies and minimize opiate load if tolerable - Avoid benzodiazepines, antihistamines and anticholinergic medications. - Constipation: please provide appropriate bowel regimen if not already scheduled. - Manage patient's environment with frequent reorientation, reduced sensory stimulation, and family at their bedside. - Shades up at 8 am and down at 8 pm. Lights on during daytime to help facilitate normal sleep cycle. - Mobilize out of bed to bathroom whenever possible and up to chair at least twice a day especially for meals - Patient may use home sensory aids (glasses, hearing aids, and walker within reach) - Low lighting and minimize ambient noise and interruptions at night - Maintain Potassium above 4 and Magnesium above 2 - Fall precautions in place - Maintain pulse O2 > 95 % #History of falls # Generalized weakness # type 2 DENs fx # impaired functional mobility gait endurance and balance - PT/OT progressive ambulation - up to chair for meals and toileting - discussed snf with family - Discussed risk of head bleed with falls on anticoagulation and proper action to take ie ED - discussed issues home safety due to dementia, pt needs care 03/02 , referred her to SW #Reduced appetite, #Unintentional weight loss 19 lb in 6 months , BMI is 18.02 #dysphagia - nutrition evaluation ordered, - weekly wt - TSH, B12, - supplement ordered tid - HEDIS SPECIALIST for swallow evaluation already ordered and recommends dysphagia pureed level 1 thin - assist with meals, dtr will write food suggestions to order , pt will not be able to order - recommended taper off aricept slowly over a month - recommend stop ozempic as this may be precipitating wt loss as well as aricept - family discussion tomorrow re; goals of care and they are looking for documents # Adjustment reaction with depressed mood and anxiety - pt withdrawn, losing wt, loss of interest, new VH , concern for depression , - would recommend remeron for sleep 15mg as it may help with mood sleep and appetite ,and monitor closely for oversedation - would not put her on remeron if on seroquel . -music art therapy - has living will and hcpoa Medication management - current and outpatient medication list reviewed - EKG to assess QTc and for bradycardia ordered for tomorrow - recommend melatonin 3mg /d to help with sleep cycle , ordered - recommend avoid seroquel if possible as increased risk of prolonged QTc and cva in elderly with dementia, if needed use lowest dose 12.5mg at 8pm with melatonin - agree with decrease aricept to 5mg with plan to taper off over a month , 5mg x 2 wk, 2.5mg x 2 wk - avoid anticholinergic meds , minimize opiods -avoid antisychotics and benzodiazepines - avoid trulicity and ozempic due to excessive wt loss and risk hypoglycemia Discharge planning - tentative discharge plan is snf Thank you for the consultation and allowing the Geriatric Medicine service to work with you for the benefit of your older patient. I spent a total of 105 minutes spent providing patient care on 01/28/24 38 minutes meeting with dtr and discussing dementia , depression delirium , measures to take to decrease delirum, Discussed need for more supervision when home ie 03/02 care, Reviewed recommended med changes using shared decision making and discussed stopping ozempic /trulicitiy Reviewed labs UB cam done [facility] nurse to discuss recommendations Ordered wtly wt nutrition Ordered delirium precautions music therapy art therapy , melatonin Ordered EKG to assess QTc Ordered syphilis to be added on Reviewed care everywhere Time-based billing justifications: Reviewing (chart, labs, and other clinical notes) Obtaining history (or reviewing separately obtained history) Patient visit (including performing a medically appropriate exam) Counseling/educating the patient/family/caregiver Ordering (medications, tests, procedures - including independent interpretation of results when not reported separately) Referring/communicating with other health assisted living care manager - when not reported separately Charting in [facility] I have personally reviewed the [employer] consultant notes, nursing notes, therapy and allied healthcare provider notes, labarotary tests and imaging/radiological tests. I have obtained pertinent history from the patient and/or surrogate including via chart review. I have independantly interpreted the tests performed and discussed management with other consultants/providers involved in the treatment of this patient. 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, possibly Alzheimers without behavioral disturbance, plus vascular as hx of lacunar infarct, vs primary progressive aphasia due to limited verbal output, # severe stenosis of proximal ICAs and severe stenosis of rt vertebral artery # acute delirium due to trauma and uti and hospitalization sleep deprivation #History of falls # Generalized weakness # type 2 DENs fx # impaired functional mobility gait endurance and balance #Reduced appetite, #Unintentional weight loss 19 lb in 6 months , BMI is 18.02 #dysphagia # Adjustment reaction with depressed mood and anxiety [facility] 01-28-2024 Note GERIATRIC CONSULTATI ON Patient Name: Bernardino Guzman Location: [place] [address] Attending: Tyree Muñoz MD PCP: No primary care provider on file. Apurva Munozes [phone] = pCP [facility]uro Geriatric Medicine team has been consulted to provide recommendations for the following problem(s): Evaluate older adult with co-morbid medical problems and recent trauma Evaluate cognitive problems - delirium, dementia, and/or depression Multiple medications effecting the older adult Our opinion has been requested to help clarify the presenting problem(s) and provide medication evaluation and recommendations, disease management recommendations, and recommendations for an appropriate plan of care. The following note reflects my opinion and services performed, as well as recommendations pertaining to treatments, medications and post-acute care History was obtained by: discussion with patient's family/responsible alliance party - reliable historian discussion with nursing staff and review of chart review of hospital chart review of transfer information discussion with other physician or health care provider: andreea currie patient is NOT a reliable historian CC: I am ok I am home HIPAA: Verbal permission granted from patient to discuss case, including protected health information, in front of family / friends in room at the time of the evaluation. Hr Generalist: Not needed - patient preferred language is [place] HPI:, 83 year old year old female with a history of atrial fib on warfarin, CAD, CVA , HTN type 2 DM, ( a1 c? ) mild to moderate dementia, anxiety with hx of falls, recently with head strike 3 wk prior to this admission, who was found down at home unwitnessed fall and taken to [facility], unable to recall the event, became nauseated, and INR 2.85, UA suggestive of UTI, given rocephen x 1, and CTN was not done prior to transfer to ED was category 2 trauma, f presenting to ED on 01/28/2024 for dx of type 2 Dens fracture. Neurosurg consulted and their assessment follows; aSSESSMENT/PLAN: Pt is an 83 yo F with PMH afib, HTN, HLD, CKD, PAD (ASA AND Plavix), DM, prior CVA who presents s/p FFS after slipping at her house. Upon arrival to OSH a CT C-spine was conducted which shows a Type 2 odontoid fracture for which patient was transferred to [facility] and NSGY was consulted. -No acute neurosurgical intervention -Maintain C-collar at all times -Recommend C-spine upright X-rays (including odontoid view) -Further recs pending completion of imaging Above plan was discussed with the (Chief) within 30 minutes of consult and discussed with the staff Dr. Emilia Hua, PADaphney Reason for consult: delirium , dementia PT saw pt ; ambulated 20 ft with min assist , slow, unsteady , verbal cues , recommending [facility] OT saw pt decreased step length, flexed, min assist to return to supine position HEDIS SPECIALIST saw pt ; ASSESSMENT: Diagnosis: no overt s/s of cardiopulmonary distress/decline Impression: Dysphagia: A clinical swallow evaluation is completed at bedside. [place] Swallow Protocol deferred d/t only small amounts of PO allowed per medical team. Patient presents with no overt s/s of cardiopulmonary distress/decline with PO throughout session. The patient has low risk factors for developing aspiration related complications. Instrumental swallowing assessment is not indicated at this time though HEDIS SPECIALIST to monitor need pending possible cervical injury. Cautiously recommend Dysphagia Level 1 Puree Diet with Thin Liquids. HEDIS SPECIALIST to re-evaluate next date with greater amount of PO trials (only cleared for small amounts this date). HEDIS SPECIALIST to follow with POC. It Operations Specialist saw pt ; low BMI 18.02. GERIATRIC ASSESSMENT: Cognitive Status: Alert, fluctuating level of consciousness, disoriented, moderate dementia, and delirious Per dtr ; pt had progressive memory problems and would just want to sit , stopped reading , watching tv going out and for past 2-3 months just wants to stay in bed and sleep / Seen by neuro Dr Hensley memory specialist and dx with(per dtr report) frontotemporal lobe dementia and prescribed aricept 10mg/d about a yr ago. Dtr states pt has declines a lot in past 3 months functionally and physically despite the meds. Now does not wish to bath or change depends, does not eat , talking less. Keeps eyes closed more and has become so weak needs to be reminded to lift up feet to walk , feed herself. Etc Per family has had the following sx; - paranoia no - personality changes yes as above more withdrawn -memory changes worsening memory - wandering no - behavioral changes as above , not combative , but agitated re; bathing getting in shower - any difficulty with driving stopped 1.5 yr ago , does not wish to have dtr sell car , wants to drive again Depression/anxiety: no per dtr - any psychiatry diagnoses or admissions no , no SI SA HI, AH but has occasional (more content not included)... [facility] 01-28-2024 Consult note Formatting of th is note is different from the original. Dietitian vs DietaryTech: BeiZ Diet Rn Pediatric [facility] Nutrition Screening Reason for visit: Positive nutrition screen for unplanned weight loss Assessment Admitting Diagnosis: TRAUMA- Fall High risk nutrition diagnosis: No - no points Past Medical History: No past medical history on file. Food Allergies: Allergies have not been reviewed Labs: LFT's (last 3 years, up to 8 values) No lab values to display. Albumin: n/a - no points Skin Integrity: No pressure ulcers at this time - no points Fluid Accumulation: wnl Diet Order: NPO Supplements: none % PO Intake: NPO Intake difficulties: None - 0 points 5' 4 105 lbs .47.6 kg Weight history: 111 lbs - November 2023; 114 lbs - October 2023; 121 lbs - Jul 2023 124 lbs - January 2023 per Care Everywhere Weight Only Weight 01/28/2024 3:09 AM 105 lb BMI: 18.02 BMI Screening value: less than 18.5- 4 points % Weight Loss: 6.4% in three months and 13.2% in 3 months Weight Loss Screening Value: Greater than 7.5% in 3 months- 7 points Education: No nutrition education indicated at this time. Comments: currently NPO. Patient sleeping soundly at visit and did not awaken to verbal stimuli. Weights reviewed in Epic and Care Everywhere. Will refer. Number of Points: 7 Nutritional Plan of Care: Greater than or equal to 7 points: Patient is at high nutrition risk. Refer to RD. Will continue to follow, Jacque Cantrell, Diet Rn Pediatric [facility] Pager [phone] [facility] 01-28-2024 Consult note Associated Order (s): IP HEDIS SPECIALIST SERVICE REQUEST SPEECH LANGUAGE PATHOLOGY BEDSIDE SWALLOW EVALUATION: AC5-708/2 Referral received, chart reviewed and history is noted. Time In: 1112 Time Out: 1126 Session Duration: 14 minutes Patient identified by patient/armband stating name and date of . Date of Onset: 01/28/24 Reason for Consult: Swallow Evaluation, assess swallowing s/p c-spine fx and c-collar History: afib, HTN, HLD, CKD, PAD (ASA & Plavix), DM, CVA, dementia Reason for admission: Per H&P- Pt is an 83 yo F who presents s/p FFS after slipping at her house. Upon arrival to OSH a CT C-spine was conducted which shows a Type 2 odontoid fracture for which patient was transferred to [facility] and NSGY was consulted. Denies pain or any other symptoms. Precautions: Fall; FULL CODE Imaging: No chest imaging completed this admission CTA Neck 01/28/24 Other: Minimally displaced type II odontoid fracture and comminuted fracture of the basion. Associated small volume epidural hematoma extending from the craniocervical junction to C3-C4 and causes abutment of the anterior cord at the cervicomedullary junction. No evidence of a soft tissue mass or lymphadenopathy in the neck or superior mediastinum. 2-3 mm nodules seen in the bilateral peripheral lung apices. IMPRESSION: No evidence of significant cerebrovascular injury. Advanced atherosclerotic disease resulting in severe stenosis ( >70%) of the proximal ICAs and severe stenosis at the right vertebral artery origin. CXR C-Spine 01/28/24 Pending results Prior Level of Functioning: No h/o dysphagia or HEDIS SPECIALIST services in chart SUBJECTIVE: Patient subjective/goals: Patient sleeping in bed upon HEDIS SPECIALIST arrival, c-collar in place and family at bedside. HEDIS SPECIALIST spoke with JARED olea to session. RN reports medical team cleared patient for sips and small amounts of PO with HEDIS SPECIALIST. Patient fully participated throughout session with cues from HEDIS SPECIALIST. Patient Statement: Yes Pain: None reported to HEDIS SPECIALIST Scale (if yes): -/10 Location: - OBJECTIVE: Oral-Motor Assessment: Lingual protrusion: + Lingual lateralization: + Labial protrusion: + Labial retraction: + Mandible: + Symmetry: + Secretions: WFL Dentition: Dentures Swallowing -Patient is currently on a NPO -Oral mucosa moist and pink SpO2: 98% Temperature: 99.0 CXR: N/A Oxygen Requirements: Room air Other Consistencies Presented: Thin liquid via single straw sips and x4 teaspoons of puree Oral Phase: WFL bilabial seal; No anterior spillage, Did not assess mastication, No oral residuals Observed what appeared to be slight oral holding at times Pharyngeal Phase: No overt evidence of airway compromise w/ oral intake - No cough or change in vocal quality - No increased/effortful work in breathing - No pain or globus sensation reported Risk Assessment: Factors Associated with Aspiration Related Pulmonary Complications: Low Positive Impact Negative impact Pulmonary Clearance Medical Conditions (COPD, CHF, asthma) Reduced function (reduced mobility/increased dependence for care) X Pulmonary health (h/o smoking, need for supplemental O2, need for inhaled medications) X Immune Response Nutritional Status X Medical co-morbidities X Presence of current infectious process X (Elevated WBC) Bacteriological Contents Dependencies for oral care X Dental care/repair X Oral hygiene X Xerostomia X Diabetes X Acid Suppression therapy (PPI, H2 Blockers) X Education: HEDIS SPECIALIST educated patient, family, and RN on results/recommendations and POC. ASSESSMENT: Diagnosis: no overt s/s of cardiopulmonary distress/decline Impression: Dysphagia: A clinical swallow evaluation is completed at bedside. [place] Swallow Protocol deferred d/t only small amounts of PO allowed per medical team. Patient presents with no overt s/s of cardiopulmonary distress/decline with PO throughout session. The patient has low risk factors for developing aspiration related complications. Instrumental swallowing assessment is not indicated at this time though HEDIS SPECIALIST to monitor need pending possible cervical injury. Cautiously recommend Dysphagia Level 1 Puree Diet with Thin Liquids. HEDIS SPECIALIST to re-evaluate next date with greater amount of PO trials (only cleared for small amounts this date). HEDIS SPECIALIST to follow with POC. PLAN: Treatment Modalities: Dysphagia Therapy; Patient Family Education; Duration: Duration of acute therapy stay Frequency: 1-3x per week Goals: Dysphagia The patient will participate in further evaluation of swallowing a the bedside with HEDIS SPECIALIST to determine LRD. The patient will consume Dysphagia Level 1 Puree and Thin Liquids with no overt s/s of cardiopulmonary distress/decline across 3-5 days. The patient/caregiver/family will demonstrate adequate return of knowledge of all compensatory strategy/instruction to effectively assist the patient in immediate safety with oral intake and swallowing. Prognosis: (+) Cooperation (+) PMH (+) New onset of acute issues (-) Age (-/+) Cognition Recommendations: - Cautiously recommend Dysphagia Level 1 Puree Diet with Thin Liquids - Recommend medications crushed in puree as able - OOB to chair at 90 degree angle when able; otherwise, upright at 60< degree angle for all PO intake - Oral care 2x/day with standard toothbrush (physical assist is needed to complete) - Recommend consult to Geriatrics given family concerns and report - Speech therapy to follow while in house short term - Do not anticipate further skilled speech therapy needs at discharge - Discharge Recommendation: SNF vs Home with full assist/supervision - If patient to discharge directly to home, recommend Total supervision and assist with IADLs (ie: finances, medication management) Nicole Grimaldo MA, CCC-HEDIS SPECIALIST Speech Language Pathologist Office [phone] [facility] 01-28-2024 Note SPEECH DRYING CAN WORKER OLOGY BEDSIDE SWALLOW EVALUATION: AC5-708/2 Referral received, chart reviewed and history is noted. Time In: 1112 Time Out: 1126 Session Duration: 14 minutes Patient identified by patient/armband stating name and date of . Date of Onset: 01/28/24 Reason for Consult: Swallow Evaluation, assess swallowing s/p c-spine fx and c-collar History: afib, HTN, HLD, CKD, PAD (ASA AND Plavix), DM, CVA, dementia Reason for admission: Per H AND P- Pt is an 83 yo F who presents s/p FFS after slipping at her house. Upon arrival to OSH a CT C-spine was conducted which shows a Type 2 odontoid fracture for which patient was transferred to [facility] and NSGY was consulted. Denies pain or any other symptoms. Precautions: Fall; FULL CODE Imaging: No chest imaging completed this admission CTA Neck 01/28/24 Other: Minimally displaced type II odontoid fracture and comminuted fracture of the basion. Associated small volume epidural hematoma extending from the craniocervical junction to C3-C4 and causes abutment of the anterior cord at the cervicomedullary junction. No evidence of a soft tissue mass or lymphadenopathy in the neck or superior mediastinum. 2-3 mm nodules seen in the bilateral peripheral lung apices. IMPRESSION: No evidence of significant cerebrovascular injury. Advanced atherosclerotic disease resulting in severe stenosis ( >70%) of the proximal ICAs and severe stenosis at the right vertebral artery origin. CXR C-Spine 01/28/24 Pending results Prior Level of Functioning: No h/o dysphagia or HEDIS SPECIALIST services in chart SUBJECTIVE: Patient subjective/goals: Patient sleeping in bed upon HEDIS SPECIALIST arrival, c-collar in place and family at bedside. HEDIS SPECIALIST spoke with JARED olea to session. RN reports medical team cleared patient for sips and small amounts of PO with HEDIS SPECIALIST. Patient fully participated throughout session with cues from HEDIS SPECIALIST. Patient Statement: Yes Pain: None reported to HEDIS SPECIALIST Scale (if yes): -/10 Location: - OBJECTIVE: Oral-Motor Assessment: Lingual protrusion: + Lingual lateralization: + Labial protrusion: + Labial retraction: + Mandible: + Symmetry: + Secretions: WFL Dentition: Dentures Swallowing -Patient is currently on a NPO -Oral mucosa moist and pink SpO2: 98% Temperature: 99.0 CXR: N/A Oxygen Requirements: Room air Other Consistencies Presented: Thin liquid via single straw sips and x4 teaspoons of puree Oral Phase: WFL bilabial seal; No anterior spillage, Did not assess mastication, No oral residuals Observed what appeared to be slight oral holding at times Pharyngeal Phase: No overt evidence of airway compromise w/ oral intake - No cough or change in vocal quality - No increased/effortful work in breathing - No pain or globus sensation reported Risk Assessment: Factors Associated with Aspiration Related Pulmonary Complications: Low Positive Impact Negative impact Pulmonary Clearance Medical Conditions (COPD, CHF, asthma) Reduced function (reduced mobility/increased dependence for care) X Pulmonary health (h/o smoking, need for supplemental O2, need for inhaled medications) X Immune Response Nutritional Status X Medical co-morbidities X Presence of current infectious process X (Elevated WBC) Bacteriological Contents Dependencies for oral care X Dental care/repair X Oral hygiene X Xerostomia X Diabetes X Acid Suppression therapy (PPI, H2 Blockers) X Education: HEDIS SPECIALIST educated patient, family, and RN on results/recommendations and POC. ASSESSMENT: Diagnosis: no overt s/s of cardiopulmonary distress/decline Impression: Dysphagia: A clinical swallow evaluation is completed at bedside. [place] Swallow Protocol deferred d/t only small amounts of PO allowed per medical team. Patient presents with no overt s/s of cardiopulmonary distress/decline with PO throughout session. The patient has low risk factors for developing aspiration related complications. Instrumental swallowing assessment is not indicated at this time though HEDIS SPECIALIST to monitor need pending possible cervical injury. Cautiously recommend Dysphagia Level 1 Puree Diet with Thin Liquids. HEDIS SPECIALIST to re-evaluate next date with greater amount of PO trials (only cleared for small amounts this date). HEDIS SPECIALIST to follow with POC. PLAN: Treatment Modalities: Dysphagia Therapy; Patient Family Education; Duration: Duration of acute therapy stay Frequency: 1-3x per week Goals: Dysphagia The patient will participate in further evaluation of swallowing a the bedside with HEDIS SPECIALIST to determine LRD. The patient will consume Dysphagia Level 1 Puree and Thin Liquids with no overt s/s of cardiopulmonary distress/decline across 3-5 days. The patient/caregiver/family will demonstrate adequate return of knowledge of all compensatory strategy/instruction to effectively assist the patient in immediate safety with oral intake and swallowing. Prognosis: (+) Cooperation ( (more content not included)... [facility] Consult note Associated Order (s): IP OCCUPATIONAL THERAPY SERVICE REQUEST OCCUPATIONAL THERAPY INITIAL EVALUATION Patient seen from 1303 to 1325 on 5E unit for 22 minutes. Admit date: 01/28/2024 3:02 AM Reason for Admit: 83 yr old F s/p fall from standing after slipping at her house. Diagnosis: Type 2 Dens Fracture Precautions/Activity Order: High falls Full code Maintain C collar at all times Procedures this admit: Per NSGY : No acute neurosurgical intervention Past Medical and Surgical History: PMH: afib, HTN, HLD, CKD, PAD (ASA & Plavix), DM, CVA, dementia PSH: No past surgical history on file. SUBJECTIVE: Patient Subjective: I usually do this myself Patient Identified Goal(s):none stated Home Living Situation. Patient questionable and vague historian. Per chart review patient lives with daughter and using RW to ambulate. Patient vague on use of RW vs rollator. Patient state she lives by herself. Prior Functional Status: ? Assistance Available at Home: lives with daughter? Patient lives in a 1 story home ? stairs to enter. Full Bathroom on main level. Bedroom on main level. Equipment available at home: RW vs rolator? OBJECTIVE: Patient Identification: patient verbalizing his/her name and date of . Risks and benefits of occupational therapy: Patient informed of risks and benefits of treatment Appearance: supine in bed upon arrival, IV, c collar in place, IV, external cathter Alertness: Awake Affect: flat Cooperation/Behavior: cooperative, flat affect, mild confusion , delayed processing. Communication: WFL Pain: Pain ratin/10, Location: denies pain Pain Relief Interventions Implemented: Positioning, Rest, and RN aware and reports patient received medication according to time schedule Self Care: Assistance Level Dep Max Mod Min CG CS DS NE I Set-Up Comment Feeding x Grooming/Hygiene x Simulated seated EOB Bathing:UB x Anticipate Bathing:LB x Simulated Dressing:UB x Managing gown Dressing: LB x Donning socks Toileting x +external catheter. Assist to doff and don new brief. Transfers/Bed Mobility: Assistance Level Dep Max Mod Min CG CS DS NE I Set-Up Comment Toilet Transfers x1 Based on bed/chair transfer Bed Transfers x1 Sit to stand from EOB with RW, cues for technique /placement of BUE. Patient with flexed posture, and decreased step length. Cues required for sequencing and RW management. Bed Mobility X1-2 Supine to sit EOB via log roll technique. Assist at trunk for sidelying to sit. Assist to scoot towards EOB.. min a X2 required to return to supine Endurance for Self Care: Impaired Static Sitting Balance: WFL Dynamic Sitting Balance: WFL UE Motor: BUE at least 3/5. Patient with impaired command follow during MMT. Denies numbness/tingling Vision/Perception: WFL Cognition: Orientation: Oriented to person, place hospital , month with choices, year: 2039...2023 patient unable to recall situation Follows Commands: requires occasional repeat of directions Attention: Impaired Memory: Impaired Problem Solving: Impaired Safety/Judgement: Impaired Sequencing: Impaired Other Specialized Tests: None Patient/Family Education: Instructed patient in roles of therapy Patient up in bed with call light in reach. bed alarm active. DME: With Patients permission ordered no equipment via upad Order. If any questions contact [facility] DME Provider at [phone]. 01/28/2024 6 Clicks Daily Activity OT Help from another person Eating meals 4 Help from another person taking care of personal grooming 3 Help from another person bathing 2 Help from another person putting on and taking off regular upper body clothing 3 Help from another person putting on and taking off regular lower body clothing 2 Help from another person toileting 2 OT 6 Clicks Score 16 6 Click Score Guidelines: 1 - Unable = Total/Dependent Assist 2 - A lot = Max/Moderate Assist 3 - A little = Minimum/Contact Guard Assist/Supervision 4 - Non = Modified [place]/Independent ASSESSMENT: Recommend further therapy services in a Skilled Rehab Setting once medically cleared. Will continue to follow patient while in hospital as appropriate. Rehabilitation Potential: Good Problem List: decreased ADLs, decreased endurance, decreased functional transfers/mobility, impaired balance, decreased home management tasks/IADLs, decreased functional activity tolerance, and increased pain Goals (to be achieved by discharge from acute care): Patient will perform grooming with Distant supervision Patient will dress upper body with Distant supervision Patient will dress lower body with Distant supervision Patient will perform bed mobility with Distant supervision Patient will perform bathing with Distant supervision Patient will perform toileting with Distant supervision Patient will perform bed transfers with Distant supervision Patient will perform commode transfers with Distant supervision PLAN: Bernardino Guzman will be seen 1-3 times a week. Treatment to include: Functional AROM/Strengthening, functional mobility training, ADL retraining, functional endurance activities, work simplification / energy conservation, home management retraining, functional task simulation, adaptive equipment / compensatory strategy training, patient / family education and discharge planning, referral to appropriate support services, and pain Management able to discuss the evaluation findings and treatment plan with the patient/family. The patient/family did participate in the development of plan and goals. Jean Pierre Nieto, OTR/L NA = Not Assessed, I = Independent, NE = Modified Independent, Sup = Supervised, Set up = Physical Assistance for Set-up Only, Min = Minimal Assistance, Mod = Moderate Assistance, Max = Max assistance; Dep = Dependent; AROM = Active Range of Motion;PROM=Passive Range of Motion; MMT = Manual Muscle Test; UB = Upper Body; LB = Lower Body [facility] 01-28-2024 Note OCCUPATIONAL THERAPY INITIAL EVALUATION Patient seen from 1303 to 1325 on 5E unit for 22 minutes. Admit date: 01/28/2024 3:02 AM Reason for Admit: 83 yr old F s/p fall from standing after slipping at her house. Diagnosis: Type 2 Dens Fracture Precautions/Activity Order: High falls Full code Maintain C collar at all times Procedures this admit: Per NSGY : No acute neurosurgical intervention Past Medical and Surgical History: PMH: afib, HTN, HLD, CKD, PAD (ASA AND Plavix), DM, CVA, dementia PSH: No past surgical history on file. SUBJECTIVE: Patient Subjective: I usually do this myself Patient Identified Goal(s):none stated Home Living Situation. Patient questionable and vague historian. Per chart review patient lives with daughter and using RW to ambulate. Patient vague on use of RW vs rollator. Patient state she lives by herself. Prior Functional Status: ? Assistance Available at Home: lives with daughter? Patient lives in a 1 story home ? stairs to enter. Full Bathroom on main level. Bedroom on main level. Equipment available at home: RW vs rolator? OBJECTIVE: Patient Identification: patient verbalizing his/her name and date of . Risks and benefits of occupational therapy: Patient informed of risks and benefits of treatment Appearance: supine in bed upon arrival, IV, c collar in place, IV, external cathter Alertness: Awake Affect: flat Cooperation/Behavior: cooperative, flat affect, mild confusion , delayed processing. Communication: WF Pain: Pain ratin/10, Location: denies pain Pain Relief Interventions Implemented: Positioning, Rest, and RN aware and reports patient received medication according to time schedule Self Care: Assistance Level Dep Max Mod Min CG CS DS NE I Set-Up Comment Feeding x Grooming/Hygiene x Simulated seated EOB Bathing:UB x Anticipate Bathing:LB x Simulated Dressing:UB x Managing gown Dressing: LB x Donning socks Toileting x +external catheter. Assist to doff and don new brief. Transfers/Bed Mobility: Assistance Level Dep Max Mod Min CG CS DS NE I Set-Up Comment Toilet Transfers x1 Based on bed/chair transfer Bed Transfers x1 Sit to stand from EOB with RW, cues for technique /placement of BUE. Patient with flexed posture, and decreased step length. Cues required for sequencing and RW management. Bed Mobility X1-2 Supine to sit EOB via log roll technique. Assist at trunk for sidelying to sit. Assist to scoot towards EOB.. min a X2 required to return to supine Endurance for Self Care: Impaired Static Sitting Balance: WFL Dynamic Sitting Balance: WFL UE Motor: BUE at least 3/5. Patient with impaired command follow during MMT. Denies numbness/tingling Vision/Perception: WFL Cognition: Orientation: Oriented to person, place hospital , month with choices, year: 2039...2023 patient unable to recall situation Follows Commands: requires occasional repeat of directions Attention: Impaired Memory: Impaired Problem Solving: Impaired Safety/Judgement: Impaired Sequencing: Impaired Other Specialized Tests: None Patient/Family Education: Instructed patient in roles of therapy Patient up in bed with call light in reach. bed alarm active. DME: With Patients permission ordered no equipment via upad Order. If any questions contact [facility] DME Provider at [phone]. 01/28/2024 6 Clicks Daily Activity OT Help from another person Eating meals 4 Help from another person taking care of personal grooming 3 Help from another person bathing 2 Help from another person putting on and taking off regular upper body clothing 3 Help from another person putting on and taking off regular lower body clothing 2 Help from another person toileting 2 OT 6 Clicks Score 16 6 Click Score Guidelines: 1 - Unable = Total/Dependent Assist 2 - A lot = Max/Moderate Assist 3 - A little = Minimum/Contact Guard Assist/Supervision 4 - Non = Modified [place]/Independent ASSESSMENT: Recommend further therapy services in a Skilled Rehab Setting once medically cleared. Will continue to follow patient while in hospital as appropriate. Rehabilitation Potential: Good Problem List: decreased ADLs, decreased endurance, decreased functional transfers/mobility, impaired balance, decreased home management tasks/IADLs, decreased functional activity tolerance, and increased pain Goals (to be achieved by discharge from acute care): Patient will perform grooming with Distant supervision Patient will dress upper body with Distant supervision Patient will dress lower body with Distant supervision Patient will perform bed mobility with Distant supervision Patient will perform bathing with Distant supervision Patient will perform toileting with Distant supervision Patient will perform bed transfers with Distant supervision Patient will perform commode transfers with Distant supervision PLAN: Bernardino Guzman will (more content not included)... [facility] 01-28-2024 Consult note Associated Order (s): IP PHYSICAL THERAPY SERVICE REQUEST PHYSICAL THERAPY ACUTE EVALUATION Referral received, chart reviewed. Patient seen from 13:03 to 13:21 on 5E unit for 18 minutes. Co-treat with OT for safe pt handling and progression of mobility. Admit date/time: 01/28/2024 3:02 AM Reason for Admit: 83 y.o F who presented to ED from OSH 01/28/24 s/p unwitnessed fall with resulting odontoid fx. Transferred to [facility] for spine consult. (?) LOC Diagnosis: Type 2 Dens Fracture Precautions: Falls NPO Full Code Progressive mobility Maintain C-collar at all times- per neurosurgery note Procedures this admit: No acute intervention per neurosurgery Past Medical and Surgical History: PMH: a-fib on warfarin, mild dementia, CAD, CVA, HTN, and DM2 PSH: No past surgical history on file. Identification was verified by patient verbalizing his/her name and date of . Risks and Benefits of physical therapy: Patient informed of risks and benefits of treatment SUBJECTIVE: Patient Subjective: I want to lay down Patient Identified Goal(s): To lay down CAREER PROFESSIONAL Status: Pt is a questionable historian. Pt reports ambulating with a walker, vague if RW vs rollator. Reports she does not need help with ADLs Home: ? steps to enter ? rails. ? steps to bedroom/bathroom ? rails. Assistance available: Per chart pt lives with her daughter, pt reports she lives alone. Equipment available: walker? OBJECTIVE: Appearance: Pt supine in bed, bed alarm on, c-collar donned, PIV and female External Catheter System Behavior: Awake, mild confusion, cooperative, flat, delayed processing Oriented x self, location. Able to correctly guess month and year when given options Follows 1 step commands consistently with cues Pain: Site/Location: none stated; Pain Scale: 0/10 Pain Relief Interventions Implemented: None required; No pain at this time Passive ROM: Not formally tested however observed WFL for basic level of mobility Strength/Active ROM: Honey ALVARADO LE Hip flexion 4/5 4/5 Knee extension 4/5 4/5 Knee flexion, ankle PF/DF not formally tested due to difficulty with command follow Mobility: Rolling to left: CGA Sidelying to sit: MinAx1 at trunk to elevate Sit to supine: MinAx2 at trunk on descent and at B LE onto bed Sitting balance: Good, CGA progressing to CS at EOB. Cues to keep eyes open Sit to stand: From bed, RW MinAx1 Ambulation/Gait: 20'x1, RW, MinAx1 overall for balance, safety, and RW management. Pt demos step through pattern with slow brian, decreased B step length, decreased environmental awareness, unsteadiness, and increased space between RW and body. Pt requires increased verbal and tactile cues for obstacle negotiation, body approximation to RW, and motor planning Endurance: Impaired Patient/Family Education: Instructed Patient in roles of therapy. Sitting up in chair at least 1 hr and for all meals Not getting up without assistance from nursing Patient up in bed with call light in reach. Bed alarm on. DME: With Patients permission ordered no equipment via upad Order. If any questions contact [facility] DME Provider at [phone]. 01/28/2024 6 Clicks Basic Mobility PT Difficulty turning over in bed 3 Difficulty sitting down and standing up from a chair with arms 3 Difficulty moving from lying on back to sitting on the side of the bed 3 Help from another person moving to and from bed to a chair 3 Help from another person to walk in hospital room 3 Help from another person climbing 3-5 steps with a railing 1 PT 6 Clicks Score 16 6 Click Score Guidelines: 1 - Total = Requires total assistance, or cannot do at all. 2 - A lot = Requires a lot of help (maximun to moderate assistance) Can use assistive devices. 3 - A little = Requires a little help (supervision, minimal assistance) Can use assistive devices. 4 - None = Does not require any help and does the activity independently. Can use assistive devices. ASSESSMENT: Bernardino Guzman is a 83 year old yo female with diagnosis as stated above. Pt is functioning below their baseline level of mobility and has impairments including decreased cognition, safety awareness, motor planning, LE strength, endurance, and balance. These impairments lead to limitations in bed mobility, functional transfers, and ambulation. Recommend further therapy services in a Halfway Setting once medically cleared. Will continue to follow patient while in hospital as appropriate. Problems: Decreased ROM/strength Decreased functional mobility Decreased endurance Decreased balance Decreased education in exercise/precautions Decreased cognition/behavior Impaired safety awareness Rehabilitation Potential: Good Goals (to be achieved by discharge from acute care): Patient will achieve acceptable level of pain control to allow participation in therapy. Patient will increase bed mobility to close supervision Patient will perform sit to/from stand with rolling walker with close supervision Patient will ambulate 50 feet with rolling walker with close supervision Patient will increase ROM/Strength/Endurance/Balance to allow for above goals. Patient/Family independent with exercise program/precautions. PLAN OF CARE: Frequency: Patient to be seen 1-3 times a week Interventions: Functional mobility ROM/Strengthening Home exercise program Discharge planning and equipment ordering as needed Patient /Family education The evaluation findings and treatment plan were discussed with the patient. The patient indicated understanding and agreement with the plan. Ingris Le PT, DPT NA = Not Assessed, I = Independent, NE = Modified Independent, Sup = Supervised, Set up = Physical Assistance for Set-up Only, Min = Minimal Assistance, Mod = Moderate Assistance, Max = Max assistance; Dep = Dependent; AROM = Active Range of Motion; PROM = Passive Range of Motion; MMT = Manual Muscle Test; LE = Lower Extremity [facility] 01-28-2024 Note PHYSICAL THERAPY ACU TE EVALUATION Referral received, chart reviewed. Patient seen from 13:03 to 13:21 on 5E unit for 18 minutes. Co-treat with OT for safe pt handling and progression of mobility. Admit date/time: 01/28/2024 3:02 AM Reason for Admit: 83 y.o F who presented to ED from OSH 01/28/24 s/p unwitnessed fall with resulting odontoid fx. Transferred to [facility] for spine consult. (?) LOC Diagnosis: Type 2 Dens Fracture Precautions: Falls NPO Full Code Progressive mobility Maintain C-collar at all times- per neurosurgery note Procedures this admit: No acute intervention per neurosurgery Past Medical and Surgical History: PMH: a-fib on warfarin, mild dementia, CAD, CVA, HTN, and DM2 PSH: No past surgical history on file. Identification was verified by patient verbalizing his/her name and date of . Risks and Benefits of physical therapy: Patient informed of risks and benefits of treatment SUBJECTIVE: Patient Subjective: I want to lay down Patient Identified Goal(s): To lay down CAREER PROFESSIONAL Status: Pt is a questionable historian. Pt reports ambulating with a walker, vague if RW vs rollator. Reports she does not need help with ADLs Home: ? steps to enter ? rails. ? steps to bedroom/bathroom ? rails. Assistance available: Per chart pt lives with her daughter, pt reports she lives alone. Equipment available: walker? OBJECTIVE: Appearance: Pt supine in bed, bed alarm on, c-collar donned, PIV and female External Catheter System Behavior: Awake, mild confusion, cooperative, flat, delayed processing Oriented x self, location. Able to correctly guess month and year when given options Follows 1 step commands consistently with cues Pain: Site/Location: none stated; Pain Scale: 0/10 Pain Relief Interventions Implemented: None required; No pain at this time Passive ROM: Not formally tested however observed WFL for basic level of mobility Strength/Active ROM: Fair R LE L LE Hip flexion 4/5 4/5 Knee extension 4/5 4/5 Knee flexion, ankle PF/DF not formally tested due to difficulty with command follow Mobility: Rolling to left: CGA Sidelying to sit: MinAx1 at trunk to elevate Sit to supine: MinAx2 at trunk on descent and at B LE onto bed Sitting balance: Good, CGA progressing to CS at EOB. Cues to keep eyes open Sit to stand: From bed, RW MinAx1 Ambulation/Gait: 20'x1, RW, MinAx1 overall for balance, safety, and RW management. Pt demos step through pattern with slow brian, decreased B step length, decreased environmental awareness, unsteadiness, and increased space between RW and body. Pt requires increased verbal and tactile cues for obstacle negotiation, body approximation to RW, and motor planning Endurance: Impaired Patient/Family Education: Instructed Patient in roles of therapy. Sitting up in chair at least 1 hr and for all meals Not getting up without assistance from nursing Patient up in bed with call light in reach. Bed alarm on. DME: With Patients permission ordered no equipment via upad Order. If any questions contact [facility] DME Provider at [phone]. 01/28/2024 6 Clicks Basic Mobility PT Difficulty turning over in bed 3 Difficulty sitting down and standing up from a chair with arms 3 Difficulty moving from lying on back to sitting on the side of the bed 3 Help from another person moving to and from bed to a chair 3 Help from another person to walk in hospital room 3 Help from another person climbing 3-5 steps with a railing 1 PT 6 Clicks Score 16 6 Click Score Guidelines: 1 - Total = Requires total assistance, or cannot do at all. 2 - A lot = Requires a lot of help (maximun to moderate assistance) Can use assistive devices. 3 - A little = Requires a little help (supervision, minimal assistance) Can use assistive devices. 4 - None = Does not require any help and does the activity independently. Can use assistive devices. ASSESSMENT: Bernardino Guzman is a 83 year old yo female with diagnosis as stated above. Pt is functioning below their baseline level of mobility and has impairments including decreased cognition, safety awareness, motor planning, LE strength, endurance, and balance. These impairments lead to limitations in bed mobility, functional transfers, and ambulation. Recommend further therapy services in a Halfway Setting once medically cleared. Will continue to follow patient while in hospital as appropriate. Problems: Decreased ROM/strength Decreased functional mobility Decreased endurance Decreased balance Decreased education in exercise/precautions Decreased cognition/behavior Impaired safety awareness Rehabilitation Potential: Good Goals (to be achieved by discharge from acute care): Patient will achieve acceptable level of pain control to allow participation in therapy. Patient will increase bed mobility to close supervision Patient will perform sit to/from stand with rolling walker wit (more content not included)... [employer] [facility] 01-28-2024 Consult note Formatting of th is note is different from the original. Images from the original note were not included. SPINE TRAUMA H&P Patient Name: Bernardino Guzman Primary Care Physician: No primary care provider on file. CONSULTED BY: Trauma CONSULTED FOR: Type 2 odontoid fracture CHIEF COMPLAINT: S/p FFS HPI: Pt is an 83 yo F with PMH afib, HTN, HLD, CKD, PAD (ASA & Plavix), DM, prior CVA who presents s/p FFS after slipping at her house. Upon arrival to OSH a CT C-spine was conducted which shows a Type 2 odontoid fracture for which patient was transferred to [facility] and NSGY was consulted. Denies pain or any other symptoms. Antiplatelet/Anticoagulant: ASA & Plavix PAST MEDICAL HISTORY: No past medical history on file. PAST SURGICAL HISTORY: No past surgical history on file. FAMILY HISTORY: No family history on file. SOCIAL HISTORY: Social History Occupational History Not on file Tobacco Use Smoking status: Not on file Smokeless tobacco: Not on file Substance and Sexual Activity Alcohol use: Not on file Drug use: Not on file Sexual activity: Not on file MEDICATIONS: ALLERGIES: Not on File COMPLETE REVIEW OF SYSTEMS: ROS 06/24 systems negative other than above LABS: CBC/PT/INR 01/28/2024 3:07 AM WBC 17.0 RBC 4.77 Hgb 13.3 Hct 40.4 MCV 85 RDW 15.5 Plt 368 aPTT 41 INR 2.80 Basic Metabolic Panel 01/28/2024 3:19 AM Na 138 K 4.7 Cl 100 CO2 27 Gap 16 Glu 190 BUN 19 Cr 1.26 Ca 8.8 NEURO EXAM: Slightly confused on exam Ox2 (not place) Face grossly symmetric C-collar in place BUE: grossly full strength throughout all muscle groups BLE: grossly full strength throughout all muscle groups No Hoffmans No Clonus Sensation grossly intact and symmetric throughout PHYSICAL EXAM: Vitals: 01/28/24 0312 BP: 117/59 Pulse: 96 Resp: 16 Temp: SpO2: 97% General appearance: Slightly confused. Skin: Skin color normal. No rashes or lesions. Head: Normocephalic. No masses, lesions. Eyes: Conjunctivae not injected /corneas clear. Ears: External ears normal. Nose/Sinuses: External nose normal. Neck: C-collar in place. Lungs: No acute respiratory distress. Heart: Regular rate. RADIOLOGY: CT C-spine: Type 2 odontoid fracture SPINE CLASSIFICATION: 1. Spinal fracture level: Cervical: C2 2. Neurological level of injury: None 3. Fracture morphology: Type 2 Dens 4. Facet fracture: No BL: Bilateral injury: No 5. Neurological status: N0: Intact N+: Ongoing compression with neurological deficit: No 6. Clinical modifiers: None 7.Previous spine surgery: No 8. Previous spine trauma: No ASSESSMENT/PLAN: Pt is an 83 yo F with PMH afib, HTN, HLD, CKD, PAD (ASA & Plavix), DM, prior CVA who presents s/p FFS after slipping at her house. Upon arrival to OSH a CT C-spine was conducted which shows a Type 2 odontoid fracture for which patient was transferred to [facility] and NSGY was consulted. -No acute neurosurgical intervention -Maintain C-collar at all times -Recommend C-spine upright X-rays (including odontoid view) -Further recs pending completion of imaging Above plan was discussed with the (Chief) within 30 minutes of consult and discussed with the staff Dr. Emilia Hua PA-C Neurosurgery Pager: [phone] Split/Shared Documentation I approve the management plan for this patient and take responsibility for the plan as documented. Independent Interpretation of Tests Performed by Another Physician/MARCELO: I personally performed, reviewed, and interpreted CT C-spine with findings of Type 2 Dens fracture. Barney Hua PA-C [facility] Work Phone: 01-28-2024 History and physical note [facility] DIVISION OF ACUTE CARE SURGERY TRAUMA SURGERY HISTORY AND PHYSICAL Bernardino Guzman [id number] 01/28/24 BASIC INJURY INFORMATION: Level of activation: Category 2 Trauma Mode of transport: Ambulance: Mechanism of injury: Found down/unknown Complicating features: Not applicable Protective measures: Not applicable Date of Injury: 01/27/2024 Time of Injury: Unknown Patient origin: Transfer from outside facility ([facility]) HISTORY OF PRESENT INJURY: Bernardino Guzman is a 83 year old female w/ pmh significant for a fib on warfarin, mild dementia, CAD, CVA, HTN, and DM2 brought in by EMS from an outside hospital ([facility] [place]) following an unwitnessed fall w/ a daignosis of a Type 2 Dens Fracture. Per EMS, patient was found on floor after being down several hours. Pt at bedside is A&O x 3 but unable to recall the event. Pt unaware of LOC after the incident and does not remember if there was head impact. Pt endorses taking blood thinners. Pt denies having any pain at this time. Pt reports having a pacemaker in place but otherwise has no other medical concerns at this time. At baseline, pt uses a walker for ambulation. Per patient's paperwork, during her ED course at [facility] [place], pt did have an episode of emesis for which she got a dose of zofran. INR was therapeutic at 2.85. UA was significant for a UTI and patient was given a dose of IV recephin. CTA Neck was not done prior to transfer. Loss of consciousness: Unknown Initial interventions (prior to ED disposition): None (Select all that apply.) Hemodynamic status witnessed in ED: None applicable (Select all that apply.) PRIMARY SURVEY: Airway: Intact Breathing: Normal Breath Sounds: Breath sounds equal bilaterally. Circulation: Pulses: Normal Skin: Normal skin color, texture, and turgor. Some bruising on the upper extremities that appear chronic. Mild skin bruising midline on the sternum and the chest wall around the bra line. Disability: Pupils: PERRL GCS: Best Eyes: 4 Best Verbal: 5 Best Motor: 6 Total: 15 SECONDARY SURVEY: BP 117/59 Pulse 96 Temp 97.6 F (36.4 C) (Oral) Resp 16 Ht 5' 4 (1.626 m) Wt 105 lb (47.6 kg) SpO2 97% BMI 18.02 kg/m Neurologic: Alert and oriented, appropriate, moves all extremities. Strength symmetrical, no sensory deficits. HEENT: Head: No lacerations, bone step-offs, or abrasions; midface stable to palpation Eyes: PERRLA, conjunctiva/corneas without lesions. and EOM intact. Ears: Left TM could not be visualized due to c-collar and No hemotympanum observed on the right. Nose: Septum midline, no crepitus with motion. No bloody drainage. Throat: Oral cavity without trauma. Neck: No midline tenderness, lacerations, or wounds to the anterior neck. Mild C-spine tenderness to palpation. Chest: No crepitus or pain with palpation; no abrasions or contusions; no gross deformities. Pulmonary: Breath sounds clear, symmetrical; no wheezes, rales, or consolidation Cardiovascular: Pulses: Bilateral radial, DP and PT pulses are normal. Abdomen: Non-distended; non-tender to palpation; no scars, lacerations, or contusions Rectal: Not performed. Pelvis/Perineum: Pelvis is stable to palpation. No tenderness to palpation w/ LE ROM. Musculoskeletal: Back/Spine: Thoracolumbar spinal column non-tender and No step-off or deformity noted Extremities: ROM normal, no gross deformities or abnormalities Adjunct Studies: None Check all that apply: None PAST MEDICAL HISTORY: No past medical history on file. PAST SURGICAL HISTORY: No past surgical history on file. Patient reports pacemaker implantation. Previous radiology reports indicate patient is post hysterectomy, appendectomy, and cholecystectomy. PRE-ADMISSION MEDICATIONS: (Not in a hospital admission) No current outpatient medications Patient reports taking plavix and warfarin. Anti-platelet use: Yes, plavix. Time of last dose unknown. Anti-coagulant use: Yes, warfarin. Time of last dose unknown. ALLERGIES: Not on File. Patient reported no allergies SOCIAL HISTORY: Social History Socioeconomic History Marital status: Living status: Unknown Primary language: Australian Functional status: Unknown Impairments: Impaired mobility Assistive Devices Used: Walker FAMILY HISTORY: denies history of bleeding or clotting disorders REVIEW OF SYSTEMS: As mentioned in HPI BASIC LABS Results for orders placed or performed during the hospital encounter of 01/28/24 LACTIC ACID Result Value Ref Range Lactate 1.4 0.5 - 1.6 mmol/L CBC WITH DIFFERENTIAL Result Value Ref Range WBC 17.0 (H) 4.5 - 11.5 K/uL RBC 4.77 4.00 - 5.20 M/uL Hemoglobin 13.3 12.0 - 15.0 g/dL Hematocrit 40.4 36.0 - 46.0 % MCV 85 80 - 100 fL MCH 27.8 26.0 - 34.0 pg MCHC 32.9 32.0 - 35.9 g/dL Platelet 368 150 - 400 K/uL RDW-CV 15.5 (H) 11.5 - 14.5 % MPV 8.9 7.5 - 11.2 fL Neutrophils 93.7 (H) 31.0 - 76.0 % Neutrophil # 15.92 (H) 1.50 - 8.00 K/uL Lymphocytes 3.5 (L) 24.0 - 44.0 % Lymphocytes # 0.59 (L) 1.00 - 4.80 K/uL Monocytes 2.5 2.0 - 11.0 % Monocyte # 0.42 0.20 - 1.00 K/uL Eosinophil 0.1 0.1 - 4.0 % Eosinophil # 0.02 0.00 - 0.70 K/uL Basophils 0.3 <=1.9 % Basophil # 0.04 0.00 - 0.20 K/uL MDW 20 <=20 RADIOLOGY: No images are attached to the admission. CT HEAD: Injury found: Yes Findings: There is no evidence of acute intracranial hemorrhage or abnormal extra-axial fluid collection. No mass effect or midline shift is seen. There is no evidence of large acute territorial infarction. There is no hydrocephalus. There is a remote infarct in right basal ganglia. Mildly enlarged ventricles and sulci, consistent with age appropriate cerebral atrophy. Mild decreased attenuation of the supratentorial white matter, likely represents chronic microvascular ischemia. To the limit of CT, the posterior fossa appears unremarkable. There are atherosclerotic calcifications of anterior and posterior circulations. There is enlarged empty sella. No definite acute fracture is identified. Soft tissues are unremarkable. The visualized orbits show no abnormality. The visualized paranasal sinuses show no air-fluid level. Mastoid air cells are clear. No CT evidence of acute intracranial abnormality. Remote infarct in right basal ganglia. Mild chronic microvascular ischemia and involutional changes. Intracranial atherosclerosis. CTA Neck: Injury found: No Findings: IMPRESSION: No evidence of significant cerebrovascular injury. CT C-SPINE: Injury found: Yes Findings: Acute type II odontoid fracture with mild leftward displacement of the odontoid fragment. No widening of the predental space or central canal stenosis. CT C/A/P: Injury found: Yes Findings: No evidence of acute traumatic injury to the abdomen or pelvis is seen. Status post cholecystectomy. There are a couple cystic structures within the pancreas. These could be further evaluated with a non-emergent outpatient contrast-enhanced MRI examination as clinically indicated. There is a 1.1 cm indeterminate left renal exophytic cystic lesion. This could be further evaluated with a non-emergent outpatient ultrasound or contrast enhanced MRI examination as clinically indicated. Colonic diverticulosis with some inflammation about the sigmoid colon. The appendix is not seen and could be surgically absent. Status post hysterectomy. Prominent amount of stool in the rectum. Chondroid matrix lesion within the sacrum. Comparison with prior imaging would be helpful. In unavailable, consider follow up examination in 3-6 months to document stability. No evidence of acute traumatic injury to the chest is seen. Remote-appearing insufficiency fracture involving the superior endplate of T12. ASSESSMENT: Bernardino Guzman is a 83 year old female w/ pmh significant for a fib on warfarinn and plavix, mild dementia, CAD, CVA, HTN, and DM2 brought in by EMS from an outside hospital ([facility] [place]) following an unwitnessed fall w/ a daignosis of a Type 2 Dens Fracture. INJURIES: Type 2 Dens Fracture INCIDENTALS: PLAN: CTA Neck Neuro Analgesia: Hx of Dementia, anxiety Tylenol, Oxycodone 2.5/5 mg q4h PRN for pain control -Continue hydroxyzine, donepezil, and seroquel Resp Encourage IS Cardio Monitor Vitals. History of HTN -Continue home meds lisinopril, diltiazem, lasix, simvastatin, warfarin GI Diet: NPO Bowel Regimen: Senna at bedtime, Colace BID, Dulcolax PRN Renal BMP, Mg q24h Replace electrolytes PRN -Creatine of 1.26, will continue to monitor Endo #History of DM -Start ISS Heme/ID CBC q24h -WBC of 17, likely reactive from fall, however, UA at [facility] concerning for UTI, given one dose of ceftriaxone -Continue ceftriaxone MSK #Type 2 Dens Fracture -Orthospine consulted -Maintain C-collar - PT/OT consulted Progressive mobility Ppx SCDs, will hold off chemoppx Dispo: Trauma Ortho/Spine Teaching Physician Note: I saw and evaluated the patient. I personally obtained the abbott and critical portions of the history and physical exam. I reviewed the resident's documentation and discussed the patient with the resident. I agree with the resident's medical decision making as documented in the resident's note. Linda Shook MD [facility] Work Phone: 01-28-2024 Note [facility] DIVISION OF ACUTE CARE SURGERY TRAUMA SURGERY HISTORY AND PHYSICAL Bernardino Guzman [id number] 01/28/24 BASIC INJURY INFORMATION: Level of activation: Category 2 Trauma Mode of transport: Ambulance: Mechanism of injury: Found down/unknown Complicating features: Not applicable Protective measures: Not applicable Date of Injury: 01/27/2024 Time of Injury: Unknown Patient origin: Transfer from outside facility ([facility] [place]) HISTORY OF PRESENT INJURY: Bernardino Guzman is a 83 year old female w/ pmh significant for a fib on warfarin, mild dementia, CAD, CVA, HTN, and DM2 brought [facility] by EMS [facility] [facility] [place] following an unwitnessed fall w/ a daignosis of a Type 2 Dens Fracture. Per EMS, patient was found on floor after being down several hours. Pt at bedside is A AND O x 3 but unable to recall the event. Pt unaware of LOC after the incident and does not remember if there was head impact. Pt endorses taking blood thinners. Pt denies having any pain at this time. Pt reports having a pacemaker in place but otherwise has no other medical concerns at this time. At baseline, pt uses a walker for ambulation. Per patient's paperwork, during her ED course at [facility], pt did have an episode of emesis for which she got a dose of zofran. INR was therapeutic at 2.85. UA was significant for a UTI and patient was given a dose of IV recephin. CTA Neck was not done prior to transfer. Loss of consciousness: Unknown Initial interventions (prior to ED disposition): None (Select all that apply.) Hemodynamic status witnessed in ED: None applicable (Select all that apply.) PRIMARY SURVEY: Airway: Intact Breathing: Normal Breath Sounds: Breath sounds equal bilaterally. Circulation: Pulses: Normal Skin: Normal skin color, texture, and turgor. Some bruising on the upper extremities that appear chronic. Mild skin bruising midline on the sternum and the chest wall around the bra line. Disability: Pupils: PERRL GCS: Best Eyes: 4 Best Verbal: 5 Best Motor: 6 Total: 15 SECONDARY SURVEY: BP 117/59 Pulse 96 Temp 97.6 ???F (36.4 ???C) (Oral) Resp 16 Ht 5' 4 (1.626 m) Wt 105 lb (47.6 kg) SpO2 97% BMI 18.02 kg/m??? Neurologic: Alert and oriented, appropriate, moves all extremities. Strength symmetrical, no sensory deficits. HEENT: Head: No lacerations, bone step-offs, or abrasions; midface stable to palpation Eyes: PERRLA, conjunctiva/corneas without lesions. and EOM intact. Ears: Left TM could not be visualized due to c-collar and No hemotympanum observed on the right. Nose: Septum midline, no crepitus with motion. No bloody drainage. Throat: Oral cavity without trauma. Neck: No midline tenderness, lacerations, or wounds to the anterior neck. Mild C-spine tenderness to palpation. Chest: No crepitus or pain with palpation; no abrasions or contusions; no gross deformities. Pulmonary: Breath sounds clear, symmetrical; no wheezes, rales, or consolidation Cardiovascular: Pulses: Bilateral radial, DP and PT pulses are normal. Abdomen: Non-distended; non-tender to palpation; no scars, lacerations, or contusions Rectal: Not performed. Pelvis/Perineum: Pelvis is stable to palpation. No tenderness to palpation w/ LE ROM. Musculoskeletal: Back/Spine: Thoracolumbar spinal column non-tender and No step-off or deformity noted Extremities: ROM normal, no gross deformities or abnormalities Adjunct Studies: None Check all that apply: None PAST MEDICAL HISTORY: No past medical history on file. PAST SURGICAL HISTORY: No past surgical history on file. Patient reports pacemaker implantation. Previous radiology reports indicate patient is post hysterectomy, appendectomy, and cholecystectomy. PRE-ADMISSION MEDICATIONS: (Not in a hospital admission) No current outpatient medications Patient reports taking plavix and warfarin. Anti-platelet use: Yes, plavix. Time of last dose unknown. Anti-coagulant use: Yes, warfarin. Time of last dose unknown. ALLERGIES: Not on File. Patient reported no allergies SOCIAL HISTORY: Social History Socioeconomic History Marital status: Living status: Unknown Primary language: Australian Functional status: Unknown Impairments: Impaired mobility Assistive Devices Used: Walker FAMILY HISTORY: denies history of bleeding or clotting disorders REVIEW OF SYSTEMS: As mentioned in HPI BASIC LABS Results for orders placed or performed during the hospital encounter of 01/28/24 LACTIC ACID Result Value Ref Range Lactate 1.4 0.5 - 1.6 mmol/L CBC WITH DIFFERENTIAL Result Value Ref Range WBC 17.0 (H) 4.5 - 11.5 K/uL RBC 4.77 4.00 - 5.20 M/uL Hemoglobin 13.3 12.0 - 15.0 g/dL Hematocrit 40.4 36.0 - 46.0 % MCV 85 80 - 100 fL MCH 27.8 26.0 - 34.0 pg MCHC 32.9 32.0 - 35.9 g/dL Platelet 368 150 - 400 K/uL RDW-CV 15.5 (H) 11.5 - 14.5 % MPV 8.9 7.5 - 11.2 fL Neutrophils 93.7 (H) 31.0 - 76.0 % Neutrophil (more content not included)... [facility] History and physical note [facility] DIV[facility] OF ACUTE CARE SURGERY TRAUMA SURGERY HISTORY AND PHYSICAL Bernardino Guzman [id number] 01/28/24 BASIC INJURY INFORMATION: Level of activation: Category 2 Trauma Mode of transport: Ambulance: Mechanism of injury: Found down/unknown Complicating features: Not applicable Protective measures: Not applicable Date of Injury: 01/27/2024 Time of Injury: Unknown Patient origin: Transfer from outside facility ([facility]) HISTORY OF PRESENT INJURY: Bernardino Guzman is a 83 year old female w/ pmh significant for a fib on warfarin, mild dementia, CAD, CVA, HTN, and DM2 brought in by EMS from an outside hospital ([facility]) following an unwitnessed fall w/ a daignosis of a Type 2 Dens Fracture. Per EMS, patient was found on floor after being down several hours. Pt at bedside is A&O x 3 but unable to recall the event. Pt unaware of LOC after the incident and does not remember if there was head impact. Pt endorses taking blood thinners. Pt denies having any pain at this time. Pt reports having a pacemaker in place but otherwise has no other medical concerns at this time. At baseline, pt uses a walker for ambulation. Per patient's paperwork, during her ED course at [facility], pt did have an episode of emesis for which she got a dose of zofran. INR was therapeutic at 2.85. UA was significant for a UTI and patient was given a dose of IV recephin. CTA Neck was not done prior to transfer. Loss of consciousness: Unknown Initial interventions (prior to ED disposition): None (Select all that apply.) Hemodynamic status witnessed in ED: None applicable (Select all that apply.) PRIMARY SURVEY: Airway: Intact Breathing: Normal Breath Sounds: Breath sounds equal bilaterally. Circulation: Pulses: Normal Skin: Normal skin color, texture, and turgor. Some bruising on the upper extremities that appear chronic. Mild skin bruising midline on the sternum and the chest wall around the bra line. Disability: Pupils: PERRL GCS: Best Eyes: 4 Best Verbal: 5 Best Motor: 6 Total: 15 SECONDARY SURVEY: BP 117/59 Pulse 96 Temp 97.6 F (36.4 C) (Oral) Resp 16 Ht 5' 4 (1.626 m) Wt 105 lb (47.6 kg) SpO2 97% BMI 18.02 kg/m Neurologic: Alert and oriented, appropriate, moves all extremities. Strength symmetrical, no sensory deficits. HEENT: Head: No lacerations, bone step-offs, or abrasions; midface stable to palpation Eyes: PERRLA, conjunctiva/corneas without lesions. and EOM intact. Ears: Left TM could not be visualized due to c-collar and No hemotympanum observed on the right. Nose: Septum midline, no crepitus with motion. No bloody drainage. Throat: Oral cavity without trauma. Neck: No midline tenderness, lacerations, or wounds to the anterior neck. Mild C-spine tenderness to palpation. Chest: No crepitus or pain with palpation; no abrasions or contusions; no gross deformities. Pulmonary: Breath sounds clear, symmetrical; no wheezes, rales, or consolidation Cardiovascular: Pulses: Bilateral radial, DP and PT pulses are normal. Abdomen: Non-distended; non-tender to palpation; no scars, lacerations, or contusions Rectal: Not performed. Pelvis/Perineum: Pelvis is stable to palpation. No tenderness to palpation w/ LE ROM. Musculoskeletal: Back/Spine: Thoracolumbar spinal column non-tender and No step-off or deformity noted Extremities: ROM normal, no gross deformities or abnormalities Adjunct Studies: None Check all that apply: None PAST MEDICAL HISTORY: No past medical history on file. PAST SURGICAL HISTORY: No past surgical history on file. Patient reports pacemaker implantation. Previous radiology reports indicate patient is post hysterectomy, appendectomy, and cholecystectomy. PRE-ADMISSION MEDICATIONS: (Not in a hospital admission) No current outpatient medications Patient reports taking plavix and warfarin. Anti-platelet use: Yes, plavix. Time of last dose unknown. Anti-coagulant use: Yes, warfarin. Time of last dose unknown. ALLERGIES: Not on File. Patient reported no allergies SOCIAL HISTORY: Social History Socioeconomic History Marital status: Living status: Unknown Primary language: Australian Functional status: Unknown Impairments: Impaired mobility Assistive Devices Used: Walker FAMILY HISTORY: denies history of bleeding or clotting disorders REVIEW OF SYSTEMS: As mentioned in HPI BASIC LABS Results for orders placed or performed during the hospital encounter of 01/28/24 LACTIC ACID Result Value Ref Range Lactate 1.4 0.5 - 1.6 mmol/L CBC WITH DIFFERENTIAL Result Value Ref Range WBC 17.0 (H) 4.5 - 11.5 K/uL RBC 4.77 4.00 - 5.20 M/uL Hemoglobin 13.3 12.0 - 15.0 g/dL Hematocrit 40.4 36.0 - 46.0 % MCV 85 80 - 100 fL MCH 27.8 26.0 - 34.0 pg MCHC 32.9 32.0 - 35.9 g/dL Platelet 368 150 - 400 K/uL RDW-CV 15.5 (H) 11.5 - 14.5 % MPV 8.9 7.5 - 11.2 fL Neutrophils 93.7 (H) 31.0 - 76.0 % Neutrophil # 15.92 (H) 1.50 - 8.00 K/uL Lymphocytes 3.5 (L) 24.0 - 44.0 % Lymphocytes # 0.59 (L) 1.00 - 4.80 K/uL Monocytes 2.5 2.0 - 11.0 % Monocyte # 0.42 0.20 - 1.00 K/uL Eosinophil 0.1 0.1 - 4.0 % Eosinophil # 0.02 0.00 - 0.70 K/uL Basophils 0.3 <=1.9 % Basophil # 0.04 0.00 - 0.20 K/uL MDW 20 <=20 RADIOLOGY: No images are attached to the admission. CT HEAD: Injury found: Yes Findings: There is no evidence of acute intracranial hemorrhage or abnormal extra-axial fluid collection. No mass effect or midline shift is seen. There is no evidence of large acute territorial infarction. There is no hydrocephalus. There is a remote infarct in right basal ganglia. Mildly enlarged ventricles and sulci, consistent with age appropriate cerebral atrophy. Mild decreased attenuation of the supratentorial white matter, likely represents chronic microvascular ischemia. To the limit of CT, the posterior fossa appears unremarkable. There are atherosclerotic calcifications of anterior and posterior circulations. There is enlarged empty sella. No definite acute fracture is identified. Soft tissues are unremarkable. The visualized orbits show no abnormality. The visualized paranasal sinuses show no air-fluid level. Mastoid air cells are clear. No CT evidence of acute intracranial abnormality. Remote infarct in right basal ganglia. Mild chronic microvascular ischemia and involutional changes. Intracranial atherosclerosis. CTA Neck: Injury found: No Findings: IMPRESSION: No evidence of significant cerebrovascular injury. CT C-SPINE: Injury found: Yes Findings: Acute type II odontoid fracture with mild leftward displacement of the odontoid fragment. No widening of the predental space or central canal stenosis. CT C/A/P: Injury found: Yes Findings: No evidence of acute traumatic injury to the abdomen or pelvis is seen. Status post cholecystectomy. There are a couple cystic structures within the pancreas. These could be further evaluated with a non-emergent outpatient contrast-enhanced MRI examination as clinically indicated. There is a 1.1 cm indeterminate left renal exophytic cystic lesion. This could be further evaluated with a non-emergent outpatient ultrasound or contrast enhanced MRI examination as clinically indicated. Colonic diverticulosis with some inflammation about the sigmoid colon. The appendix is not seen and could be surgically absent. Status post hysterectomy. Prominent amount of stool in the rectum. Chondroid matrix lesion within the sacrum. Comparison with prior imaging would be helpful. In unavailable, consider follow up examination in 3-6 months to document stability. No evidence of acute traumatic injury to the chest is seen. Remote-appearing insufficiency fracture involving the superior endplate of T12. ASSESSMENT: Bernardino Guzman is a 83 year old female w/ pmh significant for a fib on warfarinn and plavix, mild dementia, CAD, CVA, HTN, and DM2 brought in by EMS from an outside hospital ([facility]) following an unwitnessed fall w/ a daignosis of a Type 2 Dens Fracture. INJURIES: Type 2 Dens Fracture INCIDENTALS: PLAN: CTA Neck Neuro Analgesia: Hx of Dementia, anxiety Tylenol, Oxycodone 2.5/5 mg q4h PRN for pain control -Continue hydroxyzine, donepezil, and seroquel Resp Encourage IS Cardio Monitor Vitals. History of HTN -Continue home meds lisinopril, diltiazem, lasix, simvastatin, warfarin GI Diet: NPO Bowel Regimen: Senna at bedtime, Colace BID, Dulcolax PRN Renal BMP, Mg q24h Replace electrolytes PRN -Creatine of 1.26, will continue to monitor Endo #History of DM -Start ISS Heme/ID CBC q24h -WBC of 17, likely reactive from fall, however, UA at [facility] concerning for UTI, given one dose of ceftriaxone -Continue ceftriaxone MSK #Type 2 Dens Fracture -Orthospine consulted -Maintain C-collar - PT/OT consulted Progressive mobility Ppx SCDs, will hold off chemoppx Dispo: Trauma Ortho/Spine Teaching Physician Note: I saw and evaluated the patient. I personally obtained the abbott and critical portions of the history and physical exam. I reviewed the resident's documentation and discussed the patient with the resident. I agree with the resident's medical decision making as documented in the resident's note. Linda Shook MD documented in this encounter [facility] 01-28-2024 Physician Emergency department Note EMERGENCY DEPARTMENT - TRAUMA/VISIT NOTE HISTORY OF PRESENT ILLNESS C/C - Ground level fall, odontoid fx Hr Generalist: not needed - patient preferred language is Australian. Bernardino Guzman is a 83 year old female with PMH of that mentioned below presenting to the ED as a CAT 2 trauma. Per reports by , pt allegedly had a ground level fall last night resulting in an odontoid fx. Transferred to [facility] for spine consult. Pt does not remember the event and denies current pain. States compliance with blood thinner. Pt denies fever, headache, dizziness, chest pain, SOB, abdominal pain, N/V, urinary burning, diarrhea, motor/sensory deficits bilaterally or auditory/visual concerns. Pt currently on AC, no known bleeding disorders/bleeding disorders in the family. Reports last tetanus was unknown. - REVIEW OF SYSTEMS --- 12-point ROS negative unless otherwise mentioned in the HPI or MDM. ----- PAST HISTORY -------- Pertinent Past History: Mild dementia, atrial fib on warfarin, CAD, CVA, HTN and DMII Pertinent Family History: No pertinent prior family history Pertinent Social History: No pertinent prior social history --- PHYSICAL EXAM --------- BP 131/61 (BP Location: right arm) Pulse 92 Temp 99 F (37.2 C) (Oral) Resp 18 Ht 5' 4 (1.626 m) Wt 105 lb (47.6 kg) SpO2 98% BMI 18.02 kg/m Primary Survey Airway: Intact and Talking Breathing: Spontaneous, Bilateral breath sounds, and Not labored Circulation: Palpable bilateral radial and Palpable bilateral DP Total Carley Coma Scale: 15 Eyes: eyes open = 4 Verbal: alert and oriented = 5 Motor: obeys commands = 6 Secondary Survey Constitutional: Nursing triage notes reviewed, Vital signs reviewed, and Alert Head: Atraumatic. No cephalohematoma. Midface is stable. No Raccoon eyes. No Parham's sign. Eyes: PERRL. Pupils are 4 mm bilaterally. EOMI. No conjunctival injection. Ears: No hemotympanum. Nose: No nasal deformity. No septal hematoma. Mouth/Throat: Airway intact. No malocclusion. No dental injury. Neck: C-collar in place. Trachea midline. Cervical midline bony tenderness, no deformities, or step-offs. Cardiovascular: Normal rate. Regular rhythm. Heart sounds normal. Peripheral pulses are 2+ in all extremities. Pulmonary/Chest: Lungs are clear bilaterally. No decreased breath sounds. No external evidence of trauma to the chest. Chest wall is stable and non-tender. No crepitus. No flail segment. No asymmetric rise. Abdominal: No distension. Soft. No tenderness to palpation. No external evidence of abdominal trauma. Genitourinary: No evidence of genital injury. Back: No midline bony tenderness, deformities, or step-offs of the thoracic or lumbar spine. No abrasions or ecchymosis EXT: Pelvis stable to compression and non tender. RUE: No deformities. Full ROM. There is no bony tenderness. LUE: No deformities. Full ROM. There is no bony tenderness. RLE: No deformities. Full ROM. There is no bony tenderness. LLE: No deformities. Full ROM. There is no bony tenderness. Neurological: Strength is 5/5 in upper and lower extremities bilaterally. Distal sensation grossly intact. MEDICAL DECISION MAKING and ED COURSE Nursing triage and assessment notes reviewed and incorporated. Independent Test Interpretation: CT scans personally reviewed and interpreted, findings of small epidural hematoma to the cervical region. Final decision-making pending radiology read. Management Decisions: I discussed this case with [employer] consultant/admitting service trauma sx and spine team, and they recommended admission to trauma floor for further care of the above Medication Management: Medications prescribed - see visit medications. Robert Hu Course: ED Course as of 01/28/24923Jan 28, 2024 0924 CTA neck: Minimally displaced type II odontoid fracture and comminuted fracture of the basion. Associated small volume epidural hematoma extending from the craniocervical junction to C3-C4 and causes abutment of the anterior cord at the cervicomedullary junction. No evidence of a soft tissue mass or lymphadenopathy in the neck or superior mediastinum. 2-3 mm nodules seen in the bilateral peripheral lung apices. [MC] ED Course User Index [MC] Robert Ribera MD MEDICAL DECISION MAKING AND PLAN: Bernardino Guzman is a 83 year old female with PMH as noted above presenting to the emergency department as a CAT 2 trauma. Upon presentation vital signs stable. All labs and imaging results per ED course. ATLS was followed in the usual fashion and ABCs were intact, as noted above in the trauma exam. The secondary survey showed the above physical exam findings. Adjunts in the trauma bay were: None. Based on the above, obtaining CTA neck r/o acute BCVI or dissection in the setting of a known odontoid fx from transfer center. CTA shows epidural hematoma to cervical region with known odontoid fx - pt remains in c-collar and aware of dx. Pt accepted to trauma floor for further care of the above. Pt remained stable while in the ED until ED disposition was made, and all questions were answered. IMPRESSION AND DISPOSITION Clinical Impression Diagnosis Comment Closed odontoid fracture, initial encounter (HCC) [S12.100A] Epidural hematoma (HCC) [S06.4XAA] Atherosclerotic cardiovascular disease [I25.10] Disposition: Admitted to Floor: Trauma Surgery Service. Report called to Dr. Shook, Trauma (01/28/24 0525) The patient has received a medical screening examination and within reasonable clinical confidence the patient was stabilized within the capabilities of the emergency department and requires admission / observation. Counseling: Spoke with the patient and discussed today s findings, in addition to providing specific details for the plan of care and expected course. They were given the opportunity to ask questions. Robert Ribera MD PGY3, Department of Emergency Medicine Associated attestation - Robert Hu MD - 01/30/2024 9:52 PM EDT ATTENDING NOTE I saw and evaluated the patient. I personally obtained the abbott and critical portions of the history and physical exam. I reviewed/revised the resident's documentation and discussed the patient with the resident. I agree with the resident's medical decision making as documented in the resident's note. Robert Hu MD [facility] 01-28-2024 Emergency department Note EMERGENCY DEPARTMENT - TRAUMA/VISIT NOTE HISTORY OF PRESENT ILLNESS C/C - Ground level fall, odontoid fx Hr Generalist: not needed - patient preferred language is Australian. Bernardino Guzman is a 83 year old female with PMH of that mentioned below presenting to the ED as a CAT 2 trauma. Per reports by FT, pt allegedly had a ground level fall last night resulting in an odontoid fx. Transferred to [facility] for spine consult. Pt does not remember the event and denies current pain. States compliance with blood thinner. Pt denies fever, headache, dizziness, chest pain, SOB, abdominal pain, N/V, urinary burning, diarrhea, motor/sensory deficits bilaterally or auditory/visual concerns. Pt currently on AC, no known bleeding disorders/bleeding disorders in the family. Reports last tetanus was unknown. - REVIEW OF SYSTEMS --- 12-point ROS negative unless otherwise mentioned in the HPI or MDM. ----- PAST HISTORY -------- Pertinent Past History: Mild dementia, atrial fib on warfarin, CAD, CVA, HTN and DMII Pertinent Family History: No pertinent prior family history Pertinent Social History: No pertinent prior social history --- PHYSICAL EXAM --------- BP 131/61 (BP Location: right arm) Pulse 92 Temp 99 F (37.2 C) (Oral) Resp 18 Ht 5' 4 (1.626 m) Wt 105 lb (47.6 kg) SpO2 98% BMI 18.02 kg/m Primary Survey Airway: Intact and Talking Breathing: Spontaneous, Bilateral breath sounds, and Not labored Circulation: Palpable bilateral radial and Palpable bilateral DP Total Carley Coma Scale: 15 Eyes: eyes open = 4 Verbal: alert and oriented = 5 Motor: obeys commands = 6 Secondary Survey Constitutional: Nursing triage notes reviewed, Vital signs reviewed, and Alert Head: Atraumatic. No cephalohematoma. Midface is stable. No Raccoon eyes. No Parham's sign. Eyes: PERRL. Pupils are 4 mm bilaterally. EOMI. No conjunctival injection. Ears: No hemotympanum. Nose: No nasal deformity. No septal hematoma. Mouth/Throat: Airway intact. No malocclusion. No dental injury. Neck: C-collar in place. Trachea midline. Cervical midline bony tenderness, no deformities, or step-offs. Cardiovascular: Normal rate. Regular rhythm. Heart sounds normal. Peripheral pulses are 2+ in all extremities. Pulmonary/Chest: Lungs are clear bilaterally. No decreased breath sounds. No external evidence of trauma to the chest. Chest wall is stable and non-tender. No crepitus. No flail segment. No asymmetric rise. Abdominal: No distension. Soft. No tenderness to palpation. No external evidence of abdominal trauma. Genitourinary: No evidence of genital injury. Back: No midline bony tenderness, deformities, or step-offs of the thoracic or lumbar spine. No abrasions or ecchymosis EXT: Pelvis stable to compression and non tender. RUE: No deformities. Full ROM. There is no bony tenderness. LUE: No deformities. Full ROM. There is no bony tenderness. RLE: No deformities. Full ROM. There is no bony tenderness. LLE: No deformities. Full ROM. There is no bony tenderness. Neurological: Strength is 5/5 in upper and lower extremities bilaterally. Distal sensation grossly intact. MEDICAL DECISION MAKING and ED COURSE Nursing triage and assessment notes reviewed and incorporated. Independent Test Interpretation: CT scans personally reviewed and interpreted, findings of small epidural hematoma to the cervical region. Final decision-making pending radiology read. Management Decisions: I discussed this case with [employer] consultant/admitting service trauma sx and spine team, and they recommended admission to trauma floor for further care of the above Medication Management: Medications prescribed - see visit medications. Robert Hu Course: ED Course as of 01/28/24923Jan 28, 2024 09 CTA neck: Minimally displaced type II odontoid fracture and comminuted fracture of the basion. Associated small volume epidural hematoma extending from the craniocervical junction to C3-C4 and causes abutment of the anterior cord at the cervicomedullary junction. No evidence of a soft tissue mass or lymphadenopathy in the neck or superior mediastinum. 2-3 mm nodules seen in the bilateral peripheral lung apices. [MC] ED Course User Index [MC] Robert Ribera MD MEDICAL DECISION MAKING AND PLAN: Bernardino Guzman is a 83 year old female with PMH as noted above presenting to the emergency department as a CAT 2 trauma. Upon presentation vital signs stable. All labs and imaging results per ED course. ATLS was followed in the usual fashion and ABCs were intact, as noted above in the trauma exam. The secondary survey showed the above physical exam findings. Adjunts in the trauma bay were: None. Based on the above, obtaining CTA neck r/o acute BCVI or dissection in the setting of a known odontoid fx from transfer center. CTA shows epidural hematoma to cervical region with known odontoid fx - pt remains in c-collar and aware of dx. Pt accepted to trauma floor for further care of the above. Pt remained stable while in the ED until ED disposition was made, and all questions were answered. IMPRESSION AND DISPOSITION Clinical Impression Diagnosis Comment Closed odontoid fracture, initial encounter (HCC) [S12.100A] Epidural hematoma (HCC) [S06.4XAA] Atherosclerotic cardiovascular disease [I25.10] Disposition: Admitted to Floor: Trauma Surgery Service. Report called to Dr. Shook, Trauma (01/28/24 0516) The patient has received a medical screening examination and within reasonable clinical confidence the patient was stabilized within the capabilities of the emergency department and requires admission / observation. Counseling: Spoke with the patient and discussed today s findings, in addition to providing specific details for the plan of care and expected course. They were given the opportunity to ask questions. Robert Ribera MD PGY3, Department of Emergency Medicine Associated attestation - Robert Hu MD - 01/30/2024 9:52 PM EDT ATTENDING NOTE I saw and evaluated the patient. I personally obtained the abbott and critical portions of the history and physical exam. I reviewed/revised the resident's documentation and discussed the patient with the resident. I agree with the resident's medical decision making as documented in the resident's note. Robert Hu MD documented in this encounter [facility] 01-28-2024 History of Present illness Narrative CAT 2 Pt is an 83 yo F presenting via [facility] from [facility] s/p fall with type 2 odontoid fracture, +thinners Pt fell from standing and does not recall the details of the fall. Pt was down for hours before family found her. Pt lives at home with her daughter Socorro and utilizes a walker. CARMELO attempted to call daughter Socorro Franklin ([phone]). No answer, CARMELO left a voicemail. EMS states family was present at OSH and was aware of pt's transfer to [facility]. Plan: Destiney Ziegler MSW, IT OPERATIONS SPECIALIST ED Mower Sharpener documented in this encounter [facility] 01-27-2024 Evaluation + Plan note Extrac azar from: Title:ED Note Author:Sukumar Suazo DO Date :01/27/24 Acute UTI (N39.0: Urinary tr act infection, site not specified) Closed head injury (S09.90XA: Unspecified injury of head, initial encounter) Closed odontoid fracture with type II morphology (S12.110A: Anterior displaced Type II dens fracture, initial encounter for closed fracture) N&V (nausea and vomiting) (R11.2: Nausea with vomiting, unspecified) Orders: ondansetron, 4 mg = 2 mL, Injection, IV Push, Once, Stop date 01/27/24 21:32:00 EDT, STAT, Start date 01/27/24 21:32:00 EDT, 01/27/24 21:32:00 EDT promethazine 12.5 mg + Sodium Chloride 0.9% intravenous solution 50 mL, Injection, IV Piggyback, Once, Stop date 01/27/24 23:11:00 EDT, STAT, Start date 01/27/24 23:11:00 EDT, 151.5 mL/hr, Infuse over 20 minute(s) ABO/Rh ABO/Rh History Check Ammonia Level Antibody Screen Basic Metabolic Panel Blood Bank ID# CBC w/ Auto Diff Creatine Kinase CT Abdomen/Pelvis w/ Contrast CT Chest w/ Contrast CT Head or Brain w/o Contrast CT Spine Cervical w/o Contrast Drug Screen Urine ED Cardiac Monitoring eGFR Ethanol Level Hepatic Function Panel Lactic Acid Lactic Acid Lipase Level NPO Diet Oxygen Therapy PT & PTT Pulse Oximetry Continuous Saline Lock Insert Troponin UA with Cult Rflx Urine Culture Future Scheduled Tests Laboratory* CBC w/ Auto Diff 03/26/23 * Comprehensive Metabolic Panel 03/26/23 [facility]12-15-2023 History of Present illness Narrative* Taty Hagen MD - 06/27/2023 3:20 PM EST Chief Complaint: Follow-up (6 month ) History Of Present Illness: Bernardino Guzman is a 83 y.o. female presenting with follow-up. She is accompanied by her daughter. Her daughter reports that the first month of Aricept use was very tough. Now her mother has stabilized a little with the medication and is able to remember a few things. Last Recorded Vitals: Vitals: 06/27/23 1507 BP: 122/72 BP Location: Left arm Patient Position: Sitting Pulse: 101 Weight: 53.5 kg (118 lb) Height: 1.549 m (5' 1 ) Repeat heart rate after patient sat in the office was 84 bpm Past Medical History: See List Past Surgical History: See List Social History: She reports that she has never smoked. She has never used smokeless tobacco. She reports current alcohol use. She reports that she does not use drugs. Family History: Family History Problem Relation Name Age of Onset Diabetes type II Mother Allergies: Patient has no known allergies. Outpatient Medications: Current Outpatient Medications Medication Instructions aspirin 81 mg, oral, Daily cholecalciferol (VITAMIN D3) 25 mcg, oral, Daily donepezil (ARICEPT) 5 mg, oral, Nightly FreeStyle Ryan 2 Sensor kit Use sensor as directed every 2 weeks furosemide (LASIX) 20 mg, oral, Every other day, as directed NovoLOG Flexpen U-100 Insulin 100 unit/mL (3 mL) pen INJECT 3 (THREE) UNITS SUBCUTANEOUSLY THREE TIMES DAILY DIRECTED simvastatin (ZOCOR) 40 mg, oral, Nightly Trulicity 1.5 mg/0.5 mL pen injector injection Inject as directed Sub-q once weekly warfarin (Coumadin) 2 mg tablet TAKE 1 TO 2 TABLETS BY MOUTH DAILY or as directed per [facility] Review of Systems All other systems reviewed and are negative. Physical Exam: Constitutional: General: Awake. Appearance: Normal and healthy appearance. Well-developed and not in distress. Neck: Vascular: No JVR. JVD normal. Pulmonary: Effort: Pulmonary effort is normal. Breath sounds: Normal breath sounds. No wheezing. No rhonchi. No rales. Chest: Chest wall: Not tender to palpatation. Comments: Left sided device pocket- healed and well approximated. No lump or hematoma Cardiovascular: PMI at left midclavicular line. Normal rate. Regular rhythm. Normal S1. Normal S2. Murmurs: There is no murmur. No gallop. No click. No rub. Pulses: Intact distal pulses. Edema: Peripheral edema absent. Abdominal: Tenderness: There is no abdominal tenderness. Musculoskeletal: Normal range of motion. General: No tenderness. Skin: General: Skin is warm and dry. Neurological: General: No focal deficit present. Mental Status: Alert and oriented to person, place and time. Last Labs: CBC - No results found for: WBC , HGB , HCT , MCV , PLT CMP - No results found for: CALCIUM , PHOS , PROT , ALBUMIN , AST , ALT , ALKPHOS , BILITOT LIPID PANEL - No results found for: CHOL , TRIG , HDL , CHHDL , LDLF , VLDL , NHDL RENAL FUNCTION PANEL - No results found for: GLUCOSE , NA , K , CL , CO2 , ANIONGAP , BUN , CREATININE , GFRMALE , CALCIUM , PHOS , ALBUMIN No results found for: BNP , HGBA1C Last Cardiology Tests: ECG: Today. Atrial fibrillation. Rapid ventricular rate. Right axis deviation. Corrected QT interval 470ms Device check today. Estimated longevity device 9 years and 3 months. All rhythms atrial fibrillation. Ventricular high rates up to 214 bpm. 25% ventricular paced Lab review: I have personally reviewed the laboratory result(s) see above Assessment/Plan Diagnoses and all orders for this visit: Pacemaker Permanent atrial fibrillation (CMS/HCC) Sinus node dysfunction (CMS/HCC) Complete heart block (CMS/HCC) Near syncope Mixed hyperlipidemia Never smoked cigarettes BMI 22.0-22.9, adult Encounter for medication review and counseling Encounter to discuss treatment options Dylan Gupta RN Chronotropic incompetence, sinus node dysfunction, junctional rhythm, and intermittent complete heart block heart block, near syncope status post pacemaker in 2018 and 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 Stable Med[employer]onic W1 DR 01 pacemaker. Chronic. Stable. Reviewed device check. Normal device function. Ordered device checks. Continue to alternate remote checks with device clinic paired with EP office visit. Permanent atrial fibrillation with rapid ventricular rate. Reviewed medications. Increase diltiazemCD to 180 mg daily. New prescription sent High-risk medication from warfarin. Continue warfarin long-term. Refill Nonsustained ventricular tachycardia. Normal LV function by echocardiogram 2017. Treatment options discussed in detail. Patient and family opted for conservative therapy in past and currently any further evaluation declined by patient. Hypertension. Stable. Chronic. Reviewed medications. Refill discussed Abnormal stress test thought to be false positive from pacer artifact and prior heart catheterization with no significant disease. Chronic. Stable. Follows with PCP Hyperlipidemia. Chronic. Stable. Reviewed medication. Takes statin. Discussed potential adverse effect of medication. Recommended blood work in past, and this was declined. Valvular heart disease with moderate mitral stenosis with mean pressure gradient 5 mmHg by echocardiogram 2017. Chronic. Stable. Follows with cardiology. Chronic kidney disease chronic. Stable. Blood work followed by PCP Dementia. On medication. Overweight AHA recommendations for exercise, diet, and behavioral modification reviewed with pt. The patient, daughter, and I discussed the mechanism of arrhythmia, pacemaker, device check, devicefunction, device clinic, atrial fibrillation, anticoagulation, heart rate control medication, dementia and potential associated medical conditions and medications, indications for and types of medications, discussion if and what medication refills needed, treatment options, risks, benefits, and imponderables. [place] [employer] lifestyle changes and behavioral modification discussed. All questions answered in detail. Counseling over 50% visit regarding above. Patient appreciative of care. [facility]: [phone]) 420-884212-15-2023 Instructions* Patient Instructions* Dylan Gupta RN - 06/27/2023 3:20 PM EST Continue same medications/treatment. Patient educated on proper medication use. Patient educated on risk factor modification. Please bring any lab results from other providers/physicians to your next appointment. Please bring all medicines, vitamins, and herbal supplements with you when you come to the office. Prescriptions will not be filled unless you are compliant with your follow up appointments or have a follow up appointment scheduled as per instruction of your physician. Refills should be requested at the time of your visit. Follow up with Komal in 6 months Continue remote checks at 3 and 9 months INCREASE diltiazem to 180mg daily I, DYLAN GUPTA RN, AM SCRIBING FOR AND IN THE PRESENCE OF DR. TATY HAGEN MD, FACC, FACP, FHPS [facility] Work Phone: [phone] Hospital Discharge instructions Patient Education 03/26/2023 14:23:00 Fall Prevention in the Home, Adult Fall Prevention in the Home, Adult Falls can cause injuries and affect people of all ages. There are many simple things that you can do to make your home safe and to help prevent falls. Ask for help when making these changes, if needed. What actions can I take to prevent falls? General instructions Use good lighting in all rooms. Replace any light bulbs that burn out, turn on lights if it is dark, and use night-lights. Place frequently used items in jxjk-qx-zucin places. Lower the shelves around your home if necessary. Set up furniture so that there are clear paths around it. Avoid moving your furniture around. Remove throw rugs and other tripping hazards from the floor. Avoid walking on wet floors. Fix any uneven floor surfaces. Add color or contrast paint or tape to grab bars and handrails in your home. Place contrasting color strips on the first and last steps of staircases. When you use a stepladder, make sure that it is completely opened and that the sides and supports are firmly locked. Have someone hold the ladder while you are using it. Do not climb a closed stepladder. Know where your pets are when moving through your home. What can I do in the bathroom? Keep the floor dry. Immediately clean up any water that is on the floor. Remove soap buildup in the tub or shower regularly. Use nonskid mats or decals on the floor of the tub or shower. Attach bath mats securely with double-sided, nonslip rug tape. If you need to sit down while you are in the shower, use a plastic, nonslip stool. Install grab bars by the toilet and in the tub and shower. Do not use towel bars as grab bars. What can I do in the bedroom? Make sure that a bedside light is easy to reach. Do not use oversized bedding that reaches the floor. Have a firm chair that has side arms to use for getting dressed. What can I do in the kitchen? Clean up any spills right away. If you need to reach for something above you, use a sturdy step stool that has a grab bar. Keep electrical cables out of the way. Do not use floor hebrew or wax that makes floors slippery. If you must use wax, make sure that it is non-skid floor wax. What can I do with my stairs? Do not leave any items on the stairs. Make sure that you have a light switch at the top and the bottom of the stairs. Have them installedif you do not have them. Make sure that there are handrails on both sides of the stairs. Fix handrails that are broken or loose. Make sure that handrails are as long as the staircases. Install non-slip stair treads on all stairs in your home. Avoid having throw rugs at the top or bottom of stairs, or secure the rugs with carpet tape to prevent them from moving. Choose a carpet design that does not hide the edge of steps on the stairs. Check any carpeting to make sure that it is firmly attached to the stairs. Fix any carpet that is loose or worn. What can I do on the outside of my home? Use bright outdoor lighting. Regularly repair the edges of walkways and driveways and fix any cracks. Remove high doorway thresholds. Trim any shrubbery on the main path into your home. Regularly check that handrails are securely fastened and in good repair. Both sides of all steps should have handrails. Install guardrails along the edges of any raised decks or porches. Clear walkways of debris and clutter, including tools and rocks. Have leaves, snow, and ice cleared regularly. Use sand or salt on walkways during winter months. In the garage, clean up any spills right away, including grease or oil spills. What other actions can I take? Wear closed-toe shoes that fit well and support your feet. Wear shoes that have rubber soles or lowheels. Use mobility aids as needed, such as canes, walkers, scooters, and crutches. Review your medicines with your health care provider. Some medicines can cause dizziness or changesin blood pressure, which increase your risk of falling. Talk with your health care provider about other ways that you can decrease your risk of falls. Thismay include working with a physical therapist or regional sales trainer to improve your strength, balance, and endurance. Where to find more information Centers for Disease Control and Prevention, [employer]: www.cdc.gov National [place] on Aging: www.royal.nih.gov Contact a health care provider if: You are afraid of falling at home. You feel weak, drowsy, or dizzy at home. You fall at home. Summary There are many simple things that you can do to make your home safe and to help prevent falls. Ways to make your home safe include removing tripping hazards and installing grab bars in the bathroom. Ask for help when making these changes in your home. This information is not intended to replace advice given to you by your health care provider. Make sure you discuss any questions you have with your health care provider. Document Revised: 04/01/2022 Document Reviewed: 01/31/2021 [facility] Patient Education 2022 [employer]. 03/26/2023 14:22:56 Weakness, Qgif-ww-Uzoy Weakness Weakness is a lack of strength. You may feel weak all over your body (generalized), or you may feelweak in one part of your body (focal). There are many potential causes of weakness. Sometimes, the cause of your weakness may not be known. Some causes of weakness can be serious, so it is important to see your doctor. Follow these instructions at home: Activity Rest as needed. Try to get enough sleep. Most adults need 7 8 hours of sleep each night. Talk to your doctor about how much sleep you need. Do exercises, such as arm curls and leg raises, for 30 minutes at least 2 days a week or as told byyour doctor. Think about working with a physical therapist or regional sales trainer to help you get stronger. General instructions Take kknu-jxr-whmiawe and prescription medicines only as told by your doctor. Eat a healthy, well-balanced diet. This includes: ?Proteins to build muscles, such as lean meats and fish. ?Fresh fruits and vegetables. ?Carbohydrates to boost energy, such as whole grains. Drink enough fluid to keep your pee (urine) pale yellow. Keep all follow-up visits. Contact a doctor if: Your weakness does not get better or it gets worse. Your weakness affects your ability to: ?Think clearly. ?Do your normal daily activities. Get help right away if: You have sudden weakness on one side of your face or body. You have chest pain. You have trouble breathing or shortness of breath. You have problems with how you see (vision). You have trouble talking or swallowing. You have trouble standing or walking. You are light-headed or faint. These symptoms may be an emergency. Get help right away. Call 911. Do not wait to see if the symptoms will go away. Do not drive yourself to the hospital. Summary Weakness is a lack of strength. You may feel weak all over your body or just in one part of your body. There are many potential causes of weakness. Sometimes, the cause of your weakness may not be known. Rest as needed, and try to get enough sleep. Most adults need 7 8 hours of sleep each night. Eat a healthy, well-balanced diet. This information is not intended to replace advice given to you by your health care provider. Make sure you discuss any questions you have with your health care provider. Document Revised: 06/02/2022 Document Reviewed: 06/02/2022 [facility] Patient Education 2022 [employer]. 03/26/2023 14:22:51 Urinary Tract Infection, Adult Urinary Tract Infection, Adult A urinary tract infection (UTI) is an infection of any part of the urinary tract. The urinary tractincludes the kidneys, ureters, bladder, and urethra. These organs make, store, and get rid of urinein the body. An upper UTI affects the ureters and kidneys. A lower UTI affects the bladder and urethra. What are the causes? Most urinary tract infections are caused by bacteria in your genital area around your urethra, where urine leaves your body. These bacteria grow and cause inflammation of your urinary tract. What increases the risk? You are more likely to develop this condition if: You have a urinary catheter that stays in place. You are not able to control when you urinate or have a bowel movement (incontinence). You are female and you: ?Use a spermicide or diaphragm for control. ?Have low estrogen levels. ?Are . You have certain genes that increase your risk. You are sexually active. You take antibiotic medicines. You have a condition that causes your flow of urine to slow down, such as: ?An enlarged prostate, if you are male. ?Blockage in your urethra. ?A kidney stone. ?A nerve condition that affects your bladder control (neurogenic bladder). ?Not getting enough to drink, or not urinating often. You have certain medical conditions, such as: ?Diabetes. ?A weak disease-fighting system (immunesystem). ?Sickle cell disease. ?Gout. ?Spinal cord injury. What are the signs or symptoms? Symptoms of this condition include: Needing to urinate right away (urgency). Frequent urination. This may include small amounts of urine each time you urinate. Pain or burning with urination. Blood in the urine. Urine that smells bad or unusual. Trouble urinating. Cloudy urine. Vaginal discharge, if you are female. Pain in the abdomen or the lower back. You may also have: Vomiting or a decreased appetite. Confusion. Irritability or tiredness. A fever or chills. Diarrhea. The first symptom in older adults may be confusion. In some cases, they may not have any symptoms until the infection has worsened. How is this diagnosed? This condition is diagnosed based on your medical history and a physical exam. You may also have other tests, including: Urine tests. Blood tests. Tests for STIs (sexually transmitted infections). If you have had more than one UTI, a cystoscopy or imaging studies may be done to determine the cause of the infections. How is this treated? Treatment for this condition includes: Antibiotic medicine. Pumr-ems-qnnnkke medicines to treat discomfort. Drinking enough water to stay hydrated. If you have frequent infections or have other conditions such as a kidney stone, you may need to see a health care provider who specializes in the urinary tract (urologist). In rare cases, urinary tract infections can cause sepsis. Sepsis is a life- threatening condition that occurs when the body responds to an infection. Sepsis is treated in the hospital with IV antibiotics, fluids, and other medicines. Follow these instructions at home: Medicines Take goqs-zgq-qdabgez and prescription medicines only as told by your health care provider. If you were prescribed an antibiotic medicine, take it as told by your health care provider. Do notstop using the antibiotic even if you start to feel better. General instructions Make sure you: ?Empty your bladder often and completely. Do not hold urine for long periods of time. ?Empty your bladder after sex. ?Wipe from front to back after urinating or having a bowel movement if you are female. Use each tissue only one time when you wipe. Drink enough fluid to keep your urine pale yellow. Keep all follow-up visits. This is important. Contact a health care provider if: Your symptoms do not get better after 1 2 days. Your symptoms go away and then return. Get help right away if: You have severe pain in your back or your lower abdomen. You have a fever or chills. You have nausea or vomiting. Summary A urinary tract infection (UTI) is an infection of any part of the urinary tract, which includes the kidneys, ureters, bladder, and urethra. Most urinary tract infections are caused by bacteria in your genital area. Treatment for this condition often includes antibiotic medicines. If you were prescribed an antibiotic medicine, take it as told by your health care provider. Do notstop using the antibiotic even if you start to feel better. Keep all follow-up visits. This is important. This information is not intended to replace advice given to you by your health care provider. Make sure you discuss any questions you have with your health care provider. Document Revised: 02/09/2021 Document Reviewed: 02/09/2021 [facility] Patient Education 2022 [employer]. Follow Up Care 03/26/2023 12:42:17 With:Apurva Tatum MD Address: [address] [place] [address]- When: Unknown [facility] 09-13-2023 Evaluation + Plan note Future Scheduled Tests Laboratory* CBC w/ Auto Diff 03/26/23 * Comprehensive Metabolic Panel 03/26/23 [facility] 09-13-2023 Evaluation + Plan note Diagnostic Tests Pending * Urine Culture 03/26/23 Future Scheduled Tests Laboratory* CBC w/ Auto Diff 03/26/23 * Comprehensive Metabolic Panel 03/26/23 [place] [facility]07-12-2023 Evaluation + Plan note Diagnostic Tests Pending * PTH Intact 01/22/23 [facility]06-26-2023 Evaluation note* Encounter Date Diagnosis Assessment Notes Treatment Notes Treatment Clinical Notes Dec, PAD (peripheral artery disease) (ICD-10 - I73.9) Bernardino is now 3 months out after recent intervention and continues to do well overall. Her left foot wound is completely healed and she denies any ischemic rest pain. She has no symptoms of claudication. She continues with her aspirin and statin occasion daily. We will continue to follow her along closely and see her again in 3 months with repeat noninvasive arterial studies. She knows to call us in the meantime with any issues or concerns whatsoever. [employer] Other 03-31-2023 History of Present illness Narrative* Maisha Yarbrough RN - 10/11/2022 10:23 AM EDT Discharge Criteria Outpatients must meet criteria 1 through 7. Up to restroom, void sufficient amount. Yes 1. Minimum 30 minutes after last dose of sedative medication, minimum 120 minutes after last dose of reversal agent. Yes 2. Systolic BP stable within 20 mmHg for 30 minutes & systolic BP between 90 & 180 or within 10 mmHg of baseline. Yes 3. Pulse between 60 and 100 or within 10 bpm of baseline. Yes 4. Spontaneous respiratory rate >/= 10 per minute. Yes 5. SaO2 >/= 95 or >/= baseline. Yes 6. Able to cough and swallow or return to baseline function. Yes 7. Alert and oriented or return to baseline mental status. Yes 8. Demonstrates controlled, coordinated movements, ambulates with steady gait, or return to baseline activity function. Yes 9. Minimal or no pain or nausea, or at a level tolerable and acceptable to patient. Yes 10. Takes and retains oral fluids as allowed. Yes 11. Procedural / perioperative site stable. Minimal or no bleeding. Yes 12. If GI endoscopy procedure, minimal or no abdominal distention or passing flatus. Yes 13. Written discharge instructions and emergency telephone number provided. Yes 14. Accompanied by a responsible adult. Yes Adult patient discharged from facility without responsible person meets above criteria plus the following: a) remains awake without stimulus for 30 minutes b) oriented appropriate for age c) all vital signs stable d) no significant risk of losing protective reflexes e) able to maintain pre-procedure mobility without assistance f) no nausea or dizziness g) transportation arrangements that do not require patient to operate motor Vehicle. Yes * Evangelina Hdz RN - 10/11/2022 9:49 AM EDT Pt takes sips of water denies nausea. Reports still sleepy . [facility] Phone: 1(132) 858-244803-31-2023 Hospital Discharge instructions* Discharge Instructions* Mario Hensley DPM - 10/11/2022 7:58 AM EDT Take Home Instructions For Outpatient Surgery 1. No Bathing-- Keep clean and dry! 2. Use meds as directed. Dizziness and nausea is common from pain meds. Eat regularly to help prevent nausea. 3. Some discomfort and restlessness is common. 4. Swelling and bruising may occur and is normal. 5. Elevate at all times, at least waist high. 6. Do Not remove the Bandage! (For any Reason)- some bleeding may be seen through the bandage. 7. No Heat or hot water bottles until 2-3 wks. Postop. 8. To keep bandage neat and in place, wear a sock or stocking day and night. 9. Call me at once if you have heavy bleeding, severe pain or any urgent problem. 10. Please call office the day after surgery, to check in. 11. Use ice 20 minutes every 2 hours to foot or ankle during the 1st 3-4 days. 12. Up for food or bathroom only until your first postop office visit. 13. Surgical shoe Must be on for all activity and best to leave on at all times, unless icing. 14. Any temp. over 101, call immediately. 15. Walker/Wheel chair to keep pressure off heel Office [phone] Dr. Hensley documented [facility] Phone: 1(919) 777-208503-27-2023 History of Present illness Narrative* Maisha Yarbrough RN - 10/07/2022 3:00 PM EDT [facility] Preadmission Testing Name: Bernardino Guzman : 1940 Patient (home) Procedure: Left Heel Debridement Date of Procedure: 10/11/2022 Surgeon: No att. providers found Ht: Wt: Wt method: Allergies: No Known Allergies There were no vitals filed for this visit. No LMP recorded. Do you take blood thinners? [x] Yes [] No Instructed to stop blood thinners prior to procedure? [x] Yes [] No [] N/A Do you have sleep apnea? [] Yes [x] No Do you have acid reflux ? [] Yes [x] No Do you have hiatal hernia? [] Yes [x] No Do you ever experience motion sickness? [] Yes [x] No Have you had a respiratory infection or sore throat in last 4 weeks before surgery? [] Yes [x] No Do you have poorly controlled asthma or COPD? Difficulty with intubation in past? [] Yes [x] No [] Yes [x] No Do you have a history of angina in the last month or symptomatic arrhythmia? [] Yes [x] No Do you have significant central nervous system disease? [] Yes [x] No Have you had an EKG, labs, or chest xray in last 12 months? If yes provide copies to anesthesia [x] Yes [] No [x] Lab [x] EKG Dr. Hagen/Kathrin [] CXR Have you had a stress test? [x] Yes [] No When[place]where: [facility] [place] it normal? [x] Yes [] No Do you or your family have a history of Malignant Hyperthermia? [] Yes [x] No Do you smoke? [] Yes [x] No Please refrain from smoking on the day of surgery. Patient instructed on: [x] NPO Status [x] Meds to Take [x] Ride Home [x]No Jewelry/Contact Lenses/Nail Chinese [] Prep/Lax/Clear Liquids [] Chlorhexidene DOS Patient Needs [] HCG [x] Blood Sugar [] PT/INR [] T&S COVID Vaccinated? [] Yes [] No PAT Call/Visit Questions Person Interviewed: [facility] Relationship to Patient: Patient, Child(ivon) Surgery Location Verified: Yes Patient reminded to bring pertinent legal medical documents: Yes NPO Status Reinforced: Yes Ride and Caregiver Arranged: Yes Patient instructed on the pre-operative, intra-operative, and post-operative process? Yes Medication instructions reviewed with patient? Yes documented in this encounterBON [facility] [employer] Phone: 1(676) 283-930703-14-2023 Evaluation note* Encounter Date Diagnosis Assessment Notes Treatment Notes Treatment Clinical Notes Sep, PAD (peripheral artery disease) (ICD-10 - I73.9) MeantOverall patient is doing pretty good after balloon angioplasty last week. She does remain with some mild rest pain in the left foot but admits to improvement since prior to the procedure. She does have some early separation of the wound edges on the left heel. She is following with Dr. Hensley, podiatric specialist at [facility]. I did touch base with his office to inform them they may go ahead with planned debridement of the left heel. We will see her back in a couple of weeks time to monitor her progress and at that time we will obtain postprocedure ABIs. She knows to call us in the meantime with any issues or concerns. Sep, Non-healing ulcer of left foot, unspecified ulcer stage (ICD-10 - L97.529) [employer] Other 02-17-2023 Hospital Discharge instructions Patient Education 08/30/2022 12:16:18 Hematoma Hematoma A hematoma is a collection of blood under the skin, in an organ, in a body space, in a joint space,or in other tissue. The blood can thicken (clot) to form a lump that you can see and feel. The lumpis often firm and may become sore and tender. Most hematomas get better in a few days to weeks. However, some hematomas may be serious and require medical care. Hematomas can range from very small tovery large. What are the causes? This condition is caused by: A blunt or penetrating injury. A leakage from a blood vessel under the skin. Some medical procedures, including surgeries, such as oral surgery, face lifts, and surgeries on the joints. Some medical conditions that cause bleeding or bruising. There may be multiple hematomas that appear in different areas of the body. What increases the risk? You are more likely to develop this condition if: You are an older adult. You use blood thinners. What are the signs or symptoms? Symptoms of this condition depend on where the hematoma is located. Common symptoms of a hematoma that is under the skin include: A firm lump on the body. Pain and tenderness in the area. Bruising. Blue, dark blue, purple-red, or yellowish skin (discoloration) may appear at the site of the hematoma if the hematoma is close to the surface of the skin. Common symptoms of a hematoma that is deep in the tissues or body spaces may be less obvious. They include: A collection of blood in the stomach (intra-abdominal hematoma). This may cause pain in the abdomen, weakness, fainting, and shortness of breath. A collection of blood in the head (intracranial hematoma). This may cause a headache or symptoms such as weakness, trouble speaking or understanding, or a change in consciousness. How is this diagnosed? This condition is diagnosed based on: Your medical history. A physical exam. Imaging tests, such as an ultrasound or CT scan. These may be needed if your health care provider suspects a hematoma in deeper tissues or body spaces. Blood tests. These may be needed if your health care provider believes that the hematoma is caused by a medical condition. How is this treated? Treatment for this condition depends on the cause, size, and location of the hematoma. Treatment may include: Doing nothing. The majority of hematomas do not need treatment as many of them go away on their ownover time. Surgery or close monitoring. This may be needed for large hematomas or hematomas that affect vital organs. Medicines. Medicines may be given if there is an underlying medical cause for the hematoma. Follow these instructions at home: Managing pain, stiffness, and swelling If directed, put ice on the affected area. ?Put ice in a plastic bag. ?Place a towel between your skin and the bag. ?Leave the ice on for 20 minutes, 2 3 times a day for the first couple of days. If directed, apply heat to the affected area after applying ice for a couple of days. Use the heat source that your health care provider recommends, such as a moist heat pack or a heating pad. ?Place a towel between your skin and the heat source. ?Leave the heat on for 20 30 minutes. ?Remove the heat if your skin turns bright red. This is especially important if you are unable to feel pain, heat, or cold. You may have a greater risk of getting burned. Raise (elevate) the affected area above the level of your heart while you are sitting or lying down. If told, wrap the affected area with an elastic bandage. The bandage applies pressure (compression)to the area, which may help to reduce swelling and promote healing. Do not wrap the bandage too tightly around the affected area. If your hematoma is on a leg or foot (lower extremity) and is painful, your health care provider may recommend crutches. Use them as told by your health care provider. General instructions Take qorq-jsl-ctlqifw and prescription medicines only as told by your health care provider. Keep all follow-up visits as told by your health care provider. This is important. Contact a health care provider if: You have a fever. The swelling or discoloration gets worse. You develop more hematomas. Get help right away if: Your pain is worse or your pain is not controlled with medicine. Your skin over the hematoma breaks or starts bleeding. Your hematoma is in your chest or abdomen and you have weakness, shortness of breath, or a change in consciousness. You have a hematoma on your scalp that is caused by a fall or injury, and you also have: ?A headache that gets worse. ?Trouble speaking or understanding speech. ?Weakness. ?Change in alertness or consciousness. Summary A hematoma is a collection of blood under the skin, in an organ, in a body space, in a joint space,or in other tissue. This condition usually does not need treatment because many hematomas go away on their own over time. Large hematomas, or those that may affect vital organs, may need surgical drainage or monitoring. If the hematoma is caused by a medical condition, medicines may be prescribed. Get help right away if your hematoma breaks or starts to bleed, you have shortness of breath, or you have a headache or trouble speaking after a fall. This information is not intended to replace advice given to you by your health care provider. Make sure you discuss any questions you have with your health care provider. Document Released: 02/11/2005 Document Revised: 11/24/2019 Document Reviewed: 12/03/2018 [facility] Patient Education 2020 [employer]. Follow Up Care 08/30/2022 09:29:47 With:Apurva Tatum Address: [address] [place] [address]- Business (1) When:09/02/2022 11:58:30 [facility]02-17-2023 Evaluation + Plan noteExtracted from: Title:ED Note Author:Juan Antonio Pacheco PA-C te:08/30/22 Hematoma of left knee region (S80.02XA: Contusion of left knee, initial encounter) Orders: oxycodone, 5 mg = 1 tab(s), Tab, Oral, Once, Stop date 08/30/22 9:37:00 EST, STAT, Start date 08/30/22 9:37:00 EST, 08/30/22 9:37:00 EST Automated Diff Basic Metabolic Panel CBC w/ Auto Diff eGFR Extra SST Tube PT & PTT XR Knee Complete 4+ Views Left Future Appointments Appointment Date:09/12/2022 01:30:00 PM Scheduled Provider:Aileen Garcia MD Location[facility] Appointment Type:Vascular Follow Up () Appointment Date:09/26/2022 01:30:00 PM Scheduled Provider:Melony CARO MD Location:[facility] [place] [facility] Type:[facility] Follow Up [facility]02-06-2023 Evaluation note* Encounter Date Diagnosis Assessment Notes Treatment Notes Treatment Clinical Notes Aug, Peripheral vascular disease, unspecified (ICD-10 - I73.9) Aug, Other specified postprocedural states (ICD-10 - Z98.890) Aug, Ischemic ulcer of left foot, limited to breakdown of skin (ICD-10 - L97.521) Aug, Other Peripheral emiliano rial occlusive disease with ischemic ulceration of the left foot. She will undergo selective diagnostic arteriogram with limited contrast to potentially CO2 and hopefully endovascular intervention for limb salvage. She would not be a good candidate for open operative reconstruction given her apparent chronic medical condition. [employer] Other 01-11-2023 Hospital Discharge instructions Patient Education 07/24/2022 13:11:13 Diverticulitis (CUSTOM) Diverticulitis Diverticulitis is infection or inflammation of small pouches (diverticula) in the colon that form due to a condition called diverticulosis. Diverticula can trap stool (feces) and bacteria, causing infection and inflammation. Diverticulitis may cause severe stomach pain and diarrhea. It may lead to tissue damage in the colon that causes bleeding. The diverticula may also burst (rupture) and cause infected stool to enter other areas of the abdomen. Complications of diverticulitis can include: Bleeding. Severe infection. Severe pain. Rupture (perforation) of the colon. Blockage (obstruction) of the colon. What are the causes? This condition is caused by stool becoming trapped in the diverticula, which allows bacteria to grow in the diverticula. This leads to inflammation and infection. What increases the risk? You are more likely to develop this condition if: You have diverticulosis. The risk for diverticulosis increases if: ?You are overweight or obese. ?You use tobacco products. ?You do not get enough exercise. You eat a diet that does not include enough fiber. High-fiber foods include fruits, vegetables, beans, nuts, and whole grains. What are the signs or symptoms? Symptoms of this condition may include: Pain and tenderness in the abdomen. The pain is normally located on the left side of the abdomen, but it may occur in other areas. Fever and chills. Bloating. Cramping. Nausea. Vomiting. Changes in bowel routines. Blood in your stool. How is this diagnosed? This condition is diagnosed based on: Your medical history. A physical exam. Tests to make sure there is nothing else causing your condition. These tests may include: ?Blood tests. ?Urine tests. ?Imaging tests of the abdomen, including X-rays, ultrasounds, MRIs, or CT scans. How is this treated? Most cases of this condition are mild and can be treated at home. Treatment may include: Taking trqj-rgi-bbxtxqr pain medicines. Following a clear liquid diet. Taking antibiotic medicines by mouth. Rest. More severe cases may need to be treated at a hospital. Treatment may include: Not eating or drinking. Taking prescription pain medicine. Receiving antibiotic medicines through an IV tube. Receiving fluids and nutrition through an IV tube. Surgery. When your condition is under control, your health care provider may recommend that you have a colonoscopy. This is an exam to look at the entire large intestine. During the exam, a lubricated, bendable tube is inserted into the anus and then passed into the rectum, colon, and other parts of the large intestine. A colonoscopy can show how severe your diverticula are and whether something else may be causing your symptoms. Follow these instructions at home: Medicines Take mdmo-krj-elnrosz and prescription medicines only as told by your health care provider. These include fiber supplements, probiotics, and stool softeners. If you were prescribed an antibiotic medicine, take it as told by your health care provider. Do notstop taking the antibiotic even if you start to feel better. Do not drive or use heavy machinery while taking prescription pain medicine. General instructions Follow a full liquid diet or another diet as directed by your health care provider. After your symptoms improve, your health care provider may tell you to change your diet. He or she may recommend that you eat a diet that contains at least 25 g (25 grams) of fiber daily. Fiber makes it easier to pass stool. Healthy sources of fiber include: ?Berries. One cup contains 4 8 grams of fiber. ?Beans or lentils. One half cup contains 5 8 grams of fiber. ?Green vegetables. One cup contains 4 grams of fiber. Exercise for at least 30 minutes, 3 times each week. You should exercise hard enough to raise your heart rate and break a sweat. Keep all follow-up visits as told by your health care provider. This is important. You may need a colonoscopy. Contact a health care provider if: Your pain does not improve. You have a hard time drinking or eating food. Your bowel movements do not return to normal. Get help right away if: Your pain gets worse. Your symptoms do not get better with treatment. Your symptoms suddenly get worse. You have a fever. You vomit more than one time. You have stools that are bloody, black, or tarry. Summary Diverticulitis is infection or inflammation of small pouches (diverticula) in the colon that form due to a condition called diverticulosis. Diverticula can trap stool (feces) and bacteria, causing infection and inflammation. You are at higher risk for this condition if you have diverticulosis and you eat a diet that does not include enough fiber. Most cases of this condition are mild and can be treated at home. More severe cases may need to be treated at a hospital. When your condition is under control, your health care provider may recommend that you have an examcalled a colonoscopy. This exam can show how severe your diverticula are and whether something elsemay be causing your symptoms. This information is not intended to replace advice given to you by your health care provider. Make sure you discuss any questions you have with your health care provider. Document Released: 04/09/2006 Document Revised: 06/12/2018 Document Reviewed: 08/02/2017 [employer] Patient Education 2020 [facility] Follow Up Care 07/20/2022 21:56:15 With:Melony CARO Address: [address] [place] [address] Business (1) When:4 weeks Comments:Acute diverticulitis With:Apurva Tatum Address: [address] [place] [address]- Business (1) When:07/31/2022 10:40:00 [facility]01-11-2023 Evaluation + Plan noteExtracted from: Title:Discharge Note Author:Avis ENRIQUEZ, Pascual Engel ate:07/24/22 Stable Discharge To, Anticipated II - Home with home health Discharge Diet(s): Low Sodium- No added salt (07/24/22 12:15:00) Prescriptions Check PT in 3 days, 0 Cipro 500 mg Tab, 500 mg= 1 tab(s), Oral, BID Flagyl 500 mg Tab, 500 mg= 1 tab(s), Oral, TID Miralax 3350 17 gram packet, 17 gm, Oral, BID [place] 325 mg-5 mg oral tablet, 1 tab(s), Oral, q6hr, PRN Zofran 4 mg Tab, 4 mg= 1 tab(s), Oral, q8hr, PRN, Not taking Home aspirin 81 mg Oral EC Tab, 81 mg= 1 tab(s), Oral, Daily atorvastatin 40 mg Tab, 40 mg= 1 tab(s), Oral, Bedtime, Not taking Dilt-XR 120 mg/24 hours oral capsule, extended release hydrALAZINE 25 mg Tab, 25 mg= 1 tab(s), Oral, Daily Levemir FlexTouch, 18 unit(s), SubCutaneous, BID, Still taking, not as prescribed: taking 20 units q am losartan 50 mg Tab, 50 mg= 1 tab(s), Oral, Daily NovoLog FlexPen, See Instructions Ocuvite oral tablet, 1 tab(s), Oral, Daily, Not taking simvastatin 40 mg Tab, 40 mg= 1 tab(s), Oral Trulicity Pen 0.75 mg/0.5 mL subcutaneous solution, 0.75 mg, SubCutaneous, qWeek Vitamin D, [address] [employer]_Unit, Oral, Not taking warfarin 2 mg Tab, 3 mg, Oral, MonTuWeThFr warfarin 2 mg Tab, 2 mg= 1 tab(s), Oral, SatSun, Still taking, not as prescribed: taking Fri & Friday With When Contact Information Apurva Tatum 07/31/2022 10:40 AM EST [address] [place] [address]- [employer] (1) Additional Instructions: Melony CARO Within [address] [place] [address] [employer] (1) Additional Instructions: Acute diverticulitis Extracted from: Title:Abdominal Pain * Author:Melony CARO MD te:07/22/22 Impression and Plan 82 years old white female with history of for A. fib for which she is on Coumadin, admitted with nausea and nonbloody emesis associated with left lower quadrant abdominal pain, CT scan showed evidence of acute noncomplicated diverticulitis in the sigmoid and descending colon, started on antibiotics on admission, symptoms resolved completely with no further nausea, vomiting or abdominal pain today. 1. Acute noncomplicated diverticulitis, patient can be discharged home from GI point of view today with outpatient Cipro and Flagyl for a total of 7 days 3. Outpatient colonoscopy will be arranged, please advise patient to follow-up with me in the clinic in the next 4 to 8 weeks Extracted from: Title:Admission H & P Author:Edgar BARROS DO Date:07/21/22 1. Sepsis (A41.9: Sepsis, un specified organism) The patient meets criteria for sepsis with heart rate as high as 130 on presentation, respiratory rate of 20, white blood cell count of 23.6 she does not appear toxic . She does admit to decreased appetite and weakness leading to the fall see below. Patient received over 30 cc/kg which would been 1860 cc. We will continue IV fluids. Patient does appear somewhat prerenal she has had decreased oral intake Ordered: acetaminophen, 650 mg = 2 tab(s), Tab, Oral, q6hr, Routine, Start date 07/21/22 3:00:00 EST, 07/21/22 2:36:00 EST morphine, 2 mg = 1 mL, Injection, IV Push, q6hr PRN Pain 8-10 for 5 day(s), Stop date 07/26/22 2:35:00 EST, Routine, Start date 07/21/22 2:36:00 EST, 07/21/22 2:36:00 EST piperacillin-tazobactam + Sodium Chloride 0.9% intravenous solution 50 mL, 3.375 gm = 1 EA, IV Piggyback, q6hrFT, Routine, Start date 07/21/22 6:00:00 EST, 100 mL/hr, Infuse over 30 minute(s), 07/21/22 6:00:00 EST Orthostatic Vitals Signs UA With Cult Reflex 2. Acute diverticulitis (K57.92: Diverticulitis of intestine, part unspecified, without perforation or abscess without bleeding) Patient was initiated on Zosyn in the emergency department we will continue this if she continues to have acceptable clinical response can defer to the day team ? Changed to simplified regimen of Cipro and Flagyl with ultimate conversion to oral administration. Patient did have significant elevation in her white cell count met septic criteria though at present she is hemodynamically stable with only mild discomfort on abdominal examination. There is no mention on a CT scan per stat read of any perforation or abscess. Follow temperature curve, await blood cultures and repeat CBC in the a.m. make Tylenol available for as needed, will use morphine for significant pain Ordered: C-Reactive Protein 3. 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 Acute influences I suspect is due to infection as well as intravascular depletion 4. Atrial fibrillation with rapid ventricular response (I48.91: Unspecified atrial fibrillation) Patient's ventricular rate is now controlled with fluids alone pain medication antibiotics we will continue diltiazem provided patient remains hemodynamically stable Ordered: warfarin, Pharmacy to dose, Tab, Oral, As Directed, Routine, Start date 07/21/22 2:38:00 EST PT 5. N&V (nausea and vomiting) (R11.2: Nausea with vomiting, unspecified) Occurred before the fall suspect secondary to above. We will make Zofran available for 6. Hyponatremia (E87.1: Hypo-osmolality and hyponatremia) Suspect secondary to GI losses. Repeat in the a.m. as it is mild and less concerned about a rapid rise. 7. Fall (W19.XXXA: Unspecified fall, initial encounter) Patient mention is during review of systems when asking her about being weak. She replied that is why I fell. Limited insight as to what precipitated the fall. It is unlikely with a pacemaker that she had bradycardia, she did present with tachycardia which could have could have some hemodynamic intolerance. Patient is prerenal with decreased oral intake I do suspect that she is intravascularly depleted though cannot get a clear history of orthostasis suspect this is a risk. As her fall occurred a few days prior and it was no acute changes on the EKG I feel the one isolated cardiac enzyme suffices. We will monitor on telemetry. She states she did strike her head denies any acute neurologic deficits after that, the nausea and vomiting began before the fall. She was alert and oriented. We will hold on additional Coumadin until we observe overnight and as a INR was not drawn that was therapeutic a few days prior we will check in a.m. and asked pharmacy to dose. Should patient have any confusion or any other concerning symptoms we will have a low threshold for imaging. Consult physical Occupational Therapy 8. Diabetes (E11.9: Type 2 diabetes mellitus without complications) Glucose 264. Patient states she takes Levemir every morning. Will write for low- dose of Levemir in the event patient tolerates decrease caloric intake. Will cover with Humalog sliding scale. We will check hemoglobin A1c Ordered: HgbA1c 9. Hypertension (I10: Essential (primary) hypertension) Patient was mildly hypertensive. We will continue Cardizem,, hydralazine once verified and if losartan is verified can resume this if she remains hemodynamically stable and renal function is stable/improved 10. Hyperlipidemia (E78.5: Hyperlipidemia, unspecified) Continue statin 11. Mild mitral regurgitation by prior echocardiogram (I34.0: Nonrheumatic mitral (valve) insufficiency) Patient has had no prior history of congestive heart failure. Echocardiogram on 08/01/2019 suggested normal ejection fraction. There was moderate left ventricular hypertrophy Especially in the septal region. Mild to moderate mitral vegetation. Right ventricular systolic pressure of 40. We will monitor volume status I believe her to be volume depleted at this point 12. Pacemaker (Z95.0: Presence of cardiac pacemaker) Monitor on telemetry 13. Peripheral vascular disease (I73.9: Peripheral vascular disease, unspecified) Patient was seen by Dr. Garcia in December 2020. 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 It was felt at that time to be extensive left popliteal disease. When asking her if she seen a vascular surgeon recently she denied this being the case. I asked for symptoms suggestive of claudication and she denied this. Continue statin. Continue antiplatelet 14. Obesity (E66.9: Obesity, unspecified) Patient would benefit from weight loss Orders: acetaminophen, 650 mg = 2 tab(s), Tab, Oral, q6hr PRN Pain, Routine, Start date 07/21/22 2:34:00 EST, 07/21/22 2:34:00 EST glucose, 50 mL, Soln-IV, IV Push, Once PRN Blood glucose, Routine, Start date 07/21/22 2:38:00 EST insulin lispro, 0-10 Units, Injection-Insulin, SubCutaneous, QIDACHS, Routine, Start date 07/21/22 7:30:00 EST ondansetron, 4 mg = 2 mL, Injection, IV Push, q6hr PRN Nausea, Routine, Start date 07/21/22 2:34:00 EST, 07/21/22 2:34:00 EST Sodium Chloride 0.9% intravenous solution 1,000 mL, 1,000 mL, IV, 75 mL/hr, Routine, Start date 07/21/22 2:34:00 EST, 13.3 hour(s), Total volume (mL): 1,000, 61.9 kg, 1.66, m2 Basic Metabolic Panel Cardiac Monitoring CBC w/ Auto Diff Clear Liquid Diet Elevate Head of Bed Hypoglycemia Protocol Responsive Patient Hypoglycemia Protocol Unresponsive Patient Notify Provider Vital Signs Notify Provider Vital Signs Occupational Therapy Evaluate Patient, Develop a Plan of Care and Implement Plan Physical Therapy Evaluate Patient, Develop a Plan of Care and Implement Plan Place in Status Precautions Resuscitation Status - Full Routine Capillary Glucose POC Vital Signs Weight Admit patient as a general inpatient with the anticipation she will require 2 midnight stay Addendum by CHAGO ENRIQUEZ, Wm Whitman on July 21, 2022 08:23:38 EST Patient with supratherapeutic INR. She is seen and evaluated. She has no pain whatsoever in her belly region. She is hungry and would like to eat. We will start her on diabetic diet and see how she does. Continue to hold Coumadin and have pharmacy to dose it appropriately. Extracted from: Title:ED Note Author:Sukumar Suazo DO Date :07/20/22 ERON (acute kidney injury) (N 17.9: Acute kidney failure, unspecified) Atrial fibrillation (I48.91: Unspecified atrial fibrillation) Diverticulitis (K57.92: Diverticulitis of intestine, part unspecified, without perforation or abscess without bleeding) N&V (nausea and vomiting) (R11.2: Nausea with vomiting, unspecified) Sepsis (A41.9: Sepsis, unspecified organism) Orders: ondansetron, 4 mg = 2 mL, Injection, IV Push, Once, Stop date 07/20/22 22:02:00 EST, STAT, Start date 07/20/22 22:02:00 EST, 07/20/22 22:02:00 EST piperacillin-tazobactam + Sodium Chloride 0.9% intravenous solution 50 mL, 4.5 gm = 1 EA, IV Piggyback, Once, Stop date 07/20/22 23:46:00 EST, STAT, Start date 07/20/22 23:46:00 EST, 100 mL/hr, Infuse over 30 minute(s), 07/20/22 23:46:00 EST Sodium Chloride 0.9% intravenous solution, 500 mL, IV, Once, Stop date 07/20/22 22:02:00 EST, STAT, Start date 07/20/22 22:02:00 EST, 500 mL/hr, Infuse over 1, hour(s) Sodium Chloride 0.9% intravenous solution 1,000 mL, 1,000 mL, IV, bolus, STAT, Start date 07/20/22 23:48:00 EST, Total volume (mL): 1,000, Bolus Dose: 1,000 mL, 61.9 kg, 1.66, m2 Add on Test Automated Diff Basic Metabolic Panel Blood Culture Charcoal Blood Culture Charcoal CBC w/ Auto Diff CT Abdomen/Pelvis w/o Contrast ED Physician consult Hospitalist for continued care eGFR Hepatic Function Panel Lactic Acid Lactic Acid Lipase Level Magnesium Level Troponin 0 Hr. UA With Cult Reflex XR Chest Single View [facility]12-12-2022 Evaluation + Plan note Diagnostic Tests Pending * Urine Culture 06/24/22 [facility]07-21-2022 Hospital Discharge instructions Patient Education 01/30/2022 23:54:21 Urinary Tract Infection, Adult, [id number] Urinary Tract Infection, Adult A urinary tract infection (UTI) is an infection of any part of the urinary tract. The urinary tractincludes: The kidneys. The ureters. The bladder. The urethra. These organs make, store, and get rid of pee (urine) in the body. What are the causes? This is caused by germs (bacteria) in your genital area. These germs grow and cause swelling (inflammation) of your urinary tract. What increases the risk? You are more likely to develop this condition if: You have a small, thin tube (catheter) to drain pee. You cannot control when you pee or poop (incontinence). You are female, and: ?You use these methods to prevent : ?A medicine that kills sperm (spermicide). ?A device that blocks sperm (diaphragm). ?You have low levels of a female hormone (estrogen). ?You are . You have genes that add to your risk. You are sexually active. You take antibiotic medicines. You have trouble peeing because of: ?A prostate that is bigger than normal, if you are male. ?A blockage in the part of your body that drains pee from the bladder (urethra). ?A kidney stone. ?A nerve condition that affects your bladder (neurogenic bladder). ?Not getting enough to drink. ?Not peeing often enough. You have other conditions, such as: ?Diabetes. ?A weak disease-fighting system (immune system). ?Sickle cell disease. ?Gout. ?Injury of the spine. What are the signs or symptoms? Symptoms of this condition include: Needing to pee right away (urgently). Peeing often. Peeing small amounts often. Pain or burning when peeing. Blood in the pee. Pee that smells bad or not like normal. Trouble peeing. Pee that is cloudy. Fluid coming from the vagina, if you are female. Pain in the belly or lower back. Other symptoms include: Throwing up (vomiting). No urge to eat. Feeling mixed up (confused). Being tired and grouchy (irritable). A fever. Watery poop (diarrhea). How is this treated? This condition may be treated with: Antibiotic medicine. Other medicines. Drinking enough water. Follow these instructions at home: Medicines Take timh-tkm-mwkjgen and prescription medicines only as told by your doctor. If you were prescribed an antibiotic medicine, take it as told by your doctor. Do not stop taking it even if you start to feel better. General instructions Make sure you: ?Pee until your bladder is empty. ?Do not hold pee for a long time. ?Empty your bladder after sex. ?Wipe from front to back after pooping if you are a female. Use each tissue one time when you wipe. Drink enough fluid to keep your pee pale yellow. Keep all follow-up visits as told by your doctor. This is important. Contact a doctor if: You do not get better after 1 2 days. Your symptoms go away and then come back. Get help right away if: You have very bad back pain. You have very bad pain in your lower belly. You have a fever. You are sick to your stomach (nauseous). You are throwing up. Summary A urinary tract infection (UTI) is an infection of any part of the urinary tract. This condition is caused by germs in your genital area. There are many risk factors for a UTI. These include having a small, thin tube to drain pee and notbeing able to control when you pee or poop. Treatment includes antibiotic medicines for germs. Drink enough fluid to keep your pee pale yellow. This information is not intended to replace advice given to you by your health care provider. Make sure you discuss any questions you have with your health care provider. Document Released: 12/16/2008 Document Revised: 06/17/2019 Document Reviewed: 01/07/2019 [facility] Patient Education 2020 [employer]. Follow Up Care 01/30/2022 19:06:44 With:Apurva Tatum Address: [address] [place] [address]- [facility] (1) When:02/02/2022 Comments:Take your antibiotics as prescribed you have completed the course. Take the additional prescriptionthat I have given you as well. You can use the pain medication, nausea medication as prescribed as needed for pain. Please follow-up with your primary care doctor next 2 to 3 days. Please return the ED for any new or worsening symptoms. [facility]07-20-2022 Evaluation + Plan noteExtracted from: Title:ED Note Author:Paul Mccall DO Date :01/30/22 Acute UTI (N39.0: Urinary tr act infection, site not specified) Orders: acetaminophen-hydrocodone, 1 EA, Tab, Oral, Once, Stop date 01/30/22 22:38:00 EDT, STAT, Start date 01/30/22 22:38:00 EDT acetaminophen-hydrocodone, 1 tab(s), Oral, q6hr for pain, 7 tab(s), Refill(s) 0 cefadroxil, 500 mg = 1 cap(s), Oral, q12hr, X 7 day(s), # 14 cap(s), Refills(s) 0 ceftriaxone + Sodium Chloride 0.9% intravenous solution 50 mL, 1,000 mg = 1 EA, IV Piggyback, Once, Stop date 01/30/22 21:15:00 EDT, STAT, Start date 01/30/22 21:15:00 EDT, 100 mL/hr, Infuse over 30 minute(s), 01/30/22 21:15:00 EDT ketorolac, 15 mg = 1 mL, Injection, IV Push, Once, Stop date 01/30/22 22:37:00 EDT, STAT, Start date 01/30/22 22:37:00 EDT, 01/30/22 22:37:00 EDT morphine, 2 mg = 1 mL, Injection, IV Push, Once, Stop date 01/30/22 21:14:00 EDT, STAT, Start date 01/30/22 21:14:00 EDT, 01/30/22 21:14:00 EDT ondansetron, 4 mg = 2 mL, Injection, IV Push, Once, Stop date 01/30/22 21:18:00 EDT, STAT, Start date 01/30/22 21:18:00 EDT, 01/30/22 21:18:00 EDT ondansetron, 4 mg = 1 tab(s), Tab-Dis, Oral, Once, Stop date 01/30/22 22:38:00 EDT, STAT, Start date 01/30/22 22:38:00 EDT, 01/30/22 22:38:00 EDT ondansetron, 4 mg = 1 tab(s), Oral, q8hr, PRN Nausea/Vomiting, # 12 tab(s), Refills(s) 0 Sodium Chloride 0.9% intravenous solution 500 mL, 500 mL, IV, 983.61 mL/hr, for 30 day(s), Stop date 03/01/22 21:13:00 EDT, STAT, Start date 01/30/22 21:14:00 EDT, 0.5 hour(s), Total volume (mL): 500, 69.6 kg, 1.76, m2 Automated Diff Basic Metabolic Panel CBC w/ Auto Diff eGFR Hepatic Function Panel Lipase Level Morphology PT & PTT UA With Cult Reflex Urine Culture Diagnostic Tests Pending * [facility]rine [facility]30[facility] No data available for this section [facility] Future Appointments Appointment Date:05/23/2022 02:00:00 PM Scheduled Provider:Farida Dave Location:[facility] Appointment Type:URO [facility] Future Appointments Appointment Date:09/26/2022 01:30:00 PM Scheduled Provider:Melony CARO MD Location:[facility] App[facility] Type:[facility] Follow Up Diagnostic Tests Pending * PTH Intact 09/13/22 [facility] Future Appointments Appointment Date:12/05/2022 03:00:00 PM Scheduled Provider:Stacey Jones CNP Location:[facility] Appointment Type:[facility] Follow Up [facility] Evaluation + Plan note Future Appointments Appointment Date:12/05/2022 03:00:00 PM Scheduled Provider:Stacey Jones CNP Location:[facility] Appointment Type:[facility] Follow Up Diagnostic Tests Pending * Enteric Panel by PCR 09/26/22 [facility] information [facility] Work Phone: Evaluation note* Diagnosis Ulcer of left heel, limited to breakdown of skin (HCC) documented in this encounter [facility] Work Phone: evaluation note* Diagnosis Pacemaker- Primary Cardiac pacemaker in situ Permanent atrial fibrillation (CMS/HCC) Atrial fibrillation Sinus node dysfunction (CMS/HCC) Complete heart block (CMS/HCC) Atrioventricular block, complete Near syncope Mixed hyperlipidemia Never smoked cigarettes BMI 22.0-22.9, adult Encounter for medication review and counseling Encounter to discuss treatment options documented in this encounter [facility] Work Phone: Evaluation note* Diagnosis Cardiac pacemaker in situ Syncope and collapse Sinoatrial node dysfunction (CMS/HCC) Sinoatrial node dysfunction documented in this encounter [facility] Work Phone: Evaluation note* Diagnosis Pacemaker Cardiac pacemaker in situ documented in this encounter [facility] Work Phone: Evaluation note* Diagnosis Pacemaker Cardiac pacemaker in situ documented in this encounter [facility] Work Phone: Evaluation note* Diagnosis Dens fracture (HCC)- Primary Closed fracture of second cervical vertebra without mention of spinal cord injury Closed odontoid fracture, initial encounter ([facility]) Epidural hematoma (HCC) 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 Unspecified atrial fibrillation (HCC) Unspecified right bundle-branch block Left anterior fascicular block Left bundle branch hemiblock Bifascicular block Other bilateral bundle branch block Abnormal electrocardiogram (ECG) (EKG) Presence of cardiac pacemaker Cardiac pacemaker in situ Closed odontoid fracture, initial encounter ([facility]) Fall Un[facility] Closed odontoid fracture, initial encounter ([facility]) [facility] Diagnosis Closed odontoid fracture, initial encounter ([facility])- Primary Closed odontoid fracture, initial encounter ([facility]) [facility]* Diagnosis Onset Date Resolution Status Bilateral lower extremity edema acute Carotid stenosis, bilateral acute [facility] Work Phone: Evaluation note* Diagnosis Onset Date Resolution Status Bilateral lower extremity edema acute Carotid stenosis, bilateral acute Bilateral lower extremity edema acute Carotid stenosis, bilateral acute PAD (peripheral artery disease) [facility] Work Phone: Evaluation note* Diagnosis Closed odontoid fracture, initial encounter ([facility]) [facility] Diagnosis Closed odontoid fracture, initial encounter (HCC)- Primary Closed odontoid fracture, initial encounter (HCC) [facility] Diagnosis Pacemaker Cardiac pacemaker in situ Sinus node dysfunction (Multi) documented in this encounter [facility] Work Phone: Evaluation note* Diagnosis Pacemaker- Primary Cardiac pacemaker in situ Sinus node dysfunction (Multi) SOB (shortness of breath) on exertion Shortness of breath Pure hypercholesterolemia Permanent atrial fibrillation (Multi) Atrial fibrillation Mixed hyperlipidemia Hypertension, unspecified type Complete heart block Atrioventricular block, complete documented in this encounter [facility] Work Phone: Evaluation note* Diagnosis Permanent atrial fibrillation (Multi) Atrial fibrillation Pacemaker Cardiac pacemaker in situ documented in this encounter [facility] Work Phone: Evaluation note* Diagnosis Pacemaker Cardiac pacemaker in situ Sinus node dysfunction (Multi) documented in this encounter [facility] Work Phone: Evaluation note* Diagnosis Pacemaker Cardiac pacemaker in situ Sinus node dysfunction (Multi) documented in this encounter [facility] Work Phone: History general Narrative - Reported* Type Description Date Medical History htn Medical History dm Medical History kidney disease- stage 3 Medical History PAD Medical History Macular degeneration Medical History Atrial fibrillation Medical History Hyperlipidemia Medical History [ ] Surgical History Harold right greater saphenous vein, 02/2015 Surgical History Right above knee gor e ari femoral popliteal bypass graft with intraoperative arteriograms Surgical History Right above knee pop liteal to below knee peroneal composite vein grafts Surgical History Right popliteal artery vein pat ch graft Surgical History Rt fem endart & patc h graft; Revision of Rt fem-pop bypass 05/30/2017 Surgical History Pacemaker 02/19/2018 Surgical History Angio 03/26/2018 Surgical History [ ] Hospitalization History See Above [facility] [facility] Other Histbry general Narrative - Reported* Type Description Date Medical History htn Medical History dm Medical History kidney disease- stage 3 Medical History PAD Medical History Macular degeneration Medical History Atrial fibrillation Medical History Hyperlipidemia Medical History [ ] Surgical History Harold right greater saphenous vein, 02/2015 Surgical History Right above knee gor e ari femoral popliteal bypass graft with intraoperative arteriograms Surgical History Right above knee pop liteal to below knee peroneal composite vein grafts Surgical History Right popliteal artery vein pat ch graft Surgical History Rt fem endart & patc h graft; Revision of Rt fem-pop bypass 05/30/2017 Surgical History Pacemaker 02/19/2018 Surgical History Angio 03/26/2018 Surgical History stent in left knee 10/2022 Surgical History angio left leg 09/2022 Hospitalization History See Above Hospitalization History UTI- 1 week- [facility] 11/2022 [employer] [facility] Other History of Present illness Narrative* She is here for electrophysiology evaluation * The patient and daughter are here to discuss pacemaker and arrhythmia. * She feels all right. Sometimes she is a little weak and wobbly when she walks. * The patient denies any lightheadedness, near syncope, syncope, palpitation, chest discomfort, dyspnea, BARNETT with mild exertion, PND, or edema. * The device site continues to be well-healed and unchanged. The patient denies any redness, swelling, or drainage of the site. * See ROS, PMH, FMH, and surgical history for details. * The patient denies any recent hospitalization, procedure, or urgent care visit. * Personal review of ECG and cardiac data reviewed since last office visit. * Outside records: * Office visit Komal Sousa NP November 2021 * Device check August 2021 * Office visit with me May 2021 * Device Check: Today. Medtronic W1 DR [employer]a pacemaker.. Greater than 9.7 years longevity. 0.02% atrial pacing. 17.1 % ventricular pacing. 0 VT. All rhythms atrial fibrillation since November 2020. This was discussed with the patient and family in detail again. No change in symptoms. * ECG: Today. Atrial fibrillation. Left axis deviation. Corrected QT interval 480 ms. Appropriate pacing and sensing ; occasional fusion beat noted. Right bundle branch block. 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 Chronic. Stable. Reviewed device check. Normal device function. Ordered device check. Continue to alternate remote checks with device clinic paired with EP office visit. * Permanent atrial fibrillation stable. Overall rate controlled. Reviewed medications. Continue medications. Refills * High-risk medication from warfarin. Continue warfarin long-term. Refill * Nonsustained ventricular tachycardia. Normal LV function by echocardiogram 2017. Treatment options discussed in detail. Patient and family opted for conservative therapy in past. Any further evaluation declined by patient. * Hypertension. Stable. Chronic. Reviewed medications. Refill * Abnormal stress test thought to be false positive from pacer artifact and prior heart catheterization with no significant disease. Chronic. Stable. Follows with PCP * Hyperlipidemia. Chronic. Stable. Reviewed medication. Takes statin. Discussed potential adverse effect of medication. Recommended blood work and declined * Valvular heart disease with moderate mitral stenosis with mean pressure gradient 5 mmHg by echocardiogram 2017. Chronic. Stable. Follows with cardiology. * Chronic kidney disease chronic. Stable. Blood work followed by PCP * Overweight * AHA recommendations for exercise, diet, and behavioral modification reviewed with pt. * The patient, daughter, and I discussed the mechanism of arrhythmia, pacemaker, device check, devicefunction, device clinic, atrial fibrillation, permanent atrial fibrillation, anticoagulation, medications, indications for and types of medications, discussion if and what medication refills needed, treatment options, risks, benefits, and imponderables. [employer] lifestyle changes and behavioral modification discussed. All questions answered in detail. Counseling over 50% visit regarding above. Patient appreciative of care. * Extended time discussion regarding atrial fibrillation types, symptoms, prognosis, and follow-up. [facility] DO Work Phone: Hospital Discharge instructions No data available for this section [facility] Additional Instructions See Mynx brochure for care of puncture site and restrictions for next 3 days. If you notice any bleeding or bulging area to the right groin, hold firm pressure and call 911. Notify the physician if your foot becomes cold, pale and numb. Start Plavix tomorrow, as you were given a dose today in the hospital.[facility] Work Phone: Progress note No data available for this section [facility] Narrative* Imaging (Routine) - Pending Review Specialty Diagnoses / Procedures Referred By Lior t Referred To Contact Cardiology Diagnoses Permanent atrial fibrillation (Multi) Pacemaker Procedures Cardiac Device Check - In Clinic Komal Ventura, WALLPAPER SCRAPER-WESTERN PHILOSOPHY PROFESSOR Phone: tel: fax: Referral ID Status Reason Start Date Expiration Date Visits Requested Visits Authorized [id number] Pending Review Perform Procedure 12/30/2023 12/29/2024 1 1 [facility] Work Phone: Reason for visit Narrative* Imaging (Routine) - Pending Review Specialty Diagnoses / Procedures Referred By Lior t Referred To Contact Cardiology Diagnoses Pacemaker Sinus node dysfunction (Multi) Procedures Cardiac Device Check - Remote Taty Hagen MD [address] [place] [address] Phone: tel: fax: Referral ID Status Reason Start Date Expiration Date Visits Requested Visits Authorized [id number] Pending Review Perform Procedure 04/06/2024 04/06/2025 1 1 [facility] Work Phone: Summary Purpose Family History No Family History Records FoundUnknown Family Member Name Dates Details Family history of diabetes m ellitus: Mother(V18.0, Z83.3) Status:Active Unknown Family Member Name Dates Details Family history of diabetes m ellitus: Mother(V18.0, Z83.3) Status:Active Unknown Family Member Name Dates Details Family history of diabetes m ellitus: Mother(V18.0, Z83.3) Status:Active Unknown Family Member Name Dates Details Family history of diabetes m ellitus: Mother(V18.0, Z83.3) Status:Active Unknown Family Member Name Dates Details Family history of diabetes m ellitus: Mother(V18.0, Z83.3) Status:Active Unknown Family Member Name Dates Details Family history of diabetes m ellitus: Mother(V18.0, Z83.3) Status:Active Unknown Family Member Name Dates Details Family history of diabetes m ellitus: Mother(V18.0, Z83.3) Status:Active Unknown Family Member Name Dates Details Family history of diabetes m ellitus: Mother(V18.0, Z83.3) Status:Active Unknown Family Member Name Dates Details Family history of diabetes m ellitus: Mother(V18.0, Z83.3) Status:Active Unknown Family Member Name Dates Details Family history of diabetes m ellitus: Mother(V18.0, Z83.3) Status:Active Unknown Family Member Name Dates Details Family history of diabetes m ellitus: Mother(V18.0, Z83.3) Status:Active Unknown Family Member Name Dates Details Family history of diabetes m ellitus: Mother(V18.0, Z83.3) Status:Active Unknown Family Member Name Dates Details Family history of diabetes m ellitus: Mother(V18.0, Z83.3) Status:Active Unknown Family Member Name Dates Details Family history of diabetes m ellitus: Mother(V18.0, Z83.3) Status:Active Unknown Family Member Name Dates Details Family history of diabetes m ellitus: Mother(V18.0, Z83.3) Status:Active Unknown Family Member Name Dates Details Family history of diabetes m ellitus: Mother(V18.0, Z83.3) Status:Active Unknown Family Member Name Dates Details Family history of diabetes m ellitus: Mother(V18.0, Z83.3) Status:Active Unknown Family Member Name Dates Details Family history of diabetes m ellitus: Mother(V18.0, Z83.3) Status:Active Unknown Family Member Name Dates Details Family history of diabetes m ellitus: Mother(V18.0, Z83.3) Status:Active Unknown Family Member Name Dates Details Family history of diabetes m ellitus: Mother(V18.0, Z83.3) Status:Active Unknown Family Member Name Dates Details Family history of diabetes m ellitus: Mother(V18.0, Z83.3) Status:Active Unknown Family Member Name Dates Details Family history of diabetes m ellitus: Mother(V18.0, Z83.3) Status:Active Unknown Family Member Name Dates Details Family history of diabetes m ellitus: Mother(V18.0, Z83.3) Status:Active Unknown Family Member Name Dates Details Family history of diabetes m ellitus: Mother(V18.0, Z83.3) Status:Active Unknown Family Member Name Dates Details Family history of diabetes m ellitus: Mother(V18.0, Z83.3) Status:Active Unknown Family Member Name Dates Details Family history of diabetes m ellitus: Mother(V18.0, Z83.3) Status:Active Unknown Family Member Name Dates Details Family history of diabetes m ellitus: Mother(V18.0, Z83.3) Status:Active Unknown Family Member Name Dates Details Family history of diabetes m ellitus: Mother(V18.0, Z83.3) Status:Active Relationship Condition Age at Onset Recorded Date/T taisha brother Diabetes mellitus Unknown father Malignant neoplasm Unknown Unknown mother Heart disease Unknown sister Diabetes mellitus Unknown Advance Directives No Advanced Directives Records Found Advance Directive Response Recorded Date/ Time Advance Directives No May 14, 2017 10:52am Advance Directive Response Recorded Date/ Time Advance Directives No May 14, 2017 11:52am Date Activated Date Inactivated Comments 01/28/2024 6:56 AM Question Answer Comments Documentation of decision pr ocess for this code status: Patient and surrogate unable or unavailable to discuss. Defaulting to the previously documented code status. Documents on File Type Date Recorded Patient Collar Worker Expl anation Living Will 01/29/2024 LIVING WILL Date Activated Date Inactivated Comments 02/02/2024 12:12 AM system has re stored the code status that was in effect prior to admission, and was in effect at discharge Date Activated Date Inactivated Comments 01/29/2024 11:34 AM 02/02/2024 12:12 AM Protocol i s activated when the patient experiences cardiac or respiratory arrest. (All necessary treatments and interventions can be initiated prior to arrest.) Question Answer Comments Documentation of decision pr ocess for this code status: Discussed with patient or surrogate. This is the code status chosen by the patient/surrogate. Date Activated Date Inactivated Comments 01/28/2024 6:56 AM 01/29/2024 11:34 AM Question Answer Comments Documentation of decision pr ocess for this code status: Patient and surrogate unable or unavailable to discuss. Defaulting to the previously documented code status. Documents on File Type Date Recorded Patient Collar Worker Expl anation Living Will 02/06/2024 Healthcare Power of Industrial Hygiene Manager 02/06/2024 Living Will 01/29/2024 LIVING WILL Date Activated Date Inactivated Comments 02/02/2024 12:12 AM system has re stored the code status that was in effect prior to admission, and was in effect at discharge Date Activated Date Inactivated Comments 01/29/2024 11:34 AM 02/02/2024 12:12 AM Protocol i s activated when the patient experiences cardiac or respiratory arrest. (All necessary treatments and interventions can be initiated prior to arrest.) Question Answer Comments Documentation of decision pr ocess for this code status: Discussed with patient or surrogate. This is the code status chosen by the patient/surrogate. Date Activated Date Inactivated Comments 01/28/2024 6:56 AM 01/29/2024 11:34 AM Question Answer Comments Documentation of decision pr ocess for this code status: Patient and surrogate unable or unavailable to discuss. Defaulting to the previously documented code status. Documents on File Type Date Recorded Patient Collar Worker Expl anation Living Will 02/06/2024 Healthcare Power of Industrial Hygiene Manager 02/06/2024 Living Will 01/29/2024 LIVING WILL Chief Complaint Patient here for 4 month follow-up.* Patient is here today for a scheduled follow up * Chief complaint: I occasionally have some stabbing pain in my chest. * History: The patient is a 81-year-old female who is followed for sinus node dysfunction status post dual-chamber pacemaker implant on January 21, 2018. 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 Additionally she is followed for permanent atrial fibrillation on rate control strategy with diltiazem and anticoagulated with warfarin,hypertension, and dyslipidemia. She states she occasionally experiences a fleeting stabbing chest pain which occur predominantly on the right side of her chest and are not associated with activity. She denies any associated symptoms including shortness of breath, diaphoresis, fatigue, or palpitations. She is accompanied by her daughter for today's office visit. * Physical exam: * Neurological: Alert and oriented X3. Cooperative and a pleasant demeanor. Normal power x4 extremities. * HEENT: Carotid upstrokes are 2+/4 bilaterally. No carotid bruits noted. No jugular vein distention noted at 90 degrees. * Cardiac: Regular S1 and S2. No S3, or S4. No murmurs or rubs noted. * Lungs: Clear to auscultation posterior laterally. Respirations are regular and non-labored. * Abdomen: Soft with active bowel sounds X4 quads. No hepatosplenomegaly noted. No palpable masses noted. * Extremities: Lower extremities are warm, dry, and intact. Trace to 1+ right lower extremity edema noted and no left lower extremity edema noted. DPs are 2+ bilaterally. * Left subclavian pacemaker pocket is well healed without redness, swelling, or drainage * Labs and testing: Twelve-lead EKG reveals atrial fibrillation with controlled ventricular response with a ventricular rate of 89 bpm. QRS duration is 130 ms, QT 378 ms, QTC 459 ms. Right bundle branch block is noted. No acute ischemic changes are noted. Pacemaker interrogation dated November 27, 2021 reveals ventricular pacing at 18.88%. The A. fib burden is 100%. No ventricular arrhythmic events are noted. Estimated battery longevity is 10 years and 7 months. Review of INRs: November 16, 2021 2.4, November 05, 2021 3.9, October 17, 2021 2.5. * Clinical impressions: * 1. 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 * 2. Normal left ventricular function per 2D echocardiogram dated May 07, 2017. * 3. Valvular heart disease consisting of mild aortic valve thickening, moderate to severe mitral valve thickening, moderate mitral stenosis, moderate reduction in anterior and posterior mitral valve leaflet mobility, mild TR and trace WI. * 4. Pulmonary hypertension with a right ventricular systolic pressure 43.4 mmHg. * 5. Mild coronary disease per left heart catheterization dated March 25, 2016 consisting of 25% mid LAD, 30 to 45% mid RCA, and 30% PLV B stenosis with recommendation for medical management. * 6. Peripheral arterial disease status post stent. * 7. Diabetes mellitus. * 8. Chronic kidney disease. * 9. Permanent atrial fibrillation on rate control strategy with diltiazem and anticoagulated with warfarin. * 10. Nonsustained ventricular tachycardia per device interrogation dated May 27, 2019 with no documented clinical recurrence. * Recommendations: * 1. Continue current medications as prescribed. * 2. Obtain pacemaker checks as scheduled. The next check is a remote check on March 04, 2022 followed by an in clinic check on May 28, 2022 at 2 PM. * 3. Follow-up in office with Dr. Hagen on May 28, 2022 at 3 PM as scheduled or sooner if needed. * 4. Continue lifestyle modifications as discussed. * Evaluation and note by Komal Ventura, BECKY * Please excuse any errors in grammar or translation related to this dictation. Voice recognition software was utilized to prepare this document. Patient here for 1 year follow up with [facility] Chief Complaint and Reason for Visit Chief Complaint PAD with Ulcer Chief Complaint PAD with Ulcer i70.212 Chief Complaint PAD with Ulcer i70.212 PVD Chief Complaint I70.213 Chief Complaint Hosp f/u from [facility] Chief Complaint Hosp f/u from [facility] 2 WK F/U CAROTID U/S 12:30A Reason for Visit Bilateral lower extr emity edema Carotid stenosis, bilateral Chief Complaint Hosp f/u from [facility] carotid 2 WK F/U CAROTID U/S 12:30A Reason for Visit Bilateral lower extr emity edema Carotid stenosis, bilateral Bilateral lower extremity edema Carotid stenosis, bilateral PAD (peripheral artery disease) Chief Complaint Hosp f/u from [facility] carotid 2 WK F/U CAROTID U/S 12:30A I70.213 R60.0 GO OVER PVR'S, VENOUS DUPLEX Reason for Visit Bilateral lower extr emity edema Carotid stenosis, bilateral Bilateral lower extremity edema Carotid stenosis, bilateral PAD (peripheral artery disease) Reason for Referral Specialty Diagnoses / Procedures Referred By Claudiaac t Referred To Contact Cardiology Diagnoses Pacemaker Sinus node dysfunction ([facility]) Procedures Cardiac Device Check - Remote Taty Hagen MD [address] [facility] Medical Office [facility], [address] [address] Referral ID Status Reason Start Date Expiration Date Visits Requested Visits Authorized [id number] Pending Review Perform Procedure 04/06/2024 04/06/2025 1 1 Specialty Diagnoses / Procedures Referred By Claudiaac t Referred To Contact Radiology Diagnoses Closed odontoid fracture, initial encounter ([facility]) Procedures XR C-SPINE AP/LAT/OBLS/ODO 5 VIEWS Guillermina Troncoso PA-C [address] [facility] [place] [address] [facility] DIAGNOSTIC RADIOLOGY [address] [facility] [place] [address] Referral ID Status Reason Start Date Expiration Date Visits Re quested Visits Authorized [id number] Closed 02/17/2024 02/16/2025 1 1 Specialty Diagnoses / Procedures Referred By Contac t Referred To Contact Cardiology Diagnoses Cardiac pacemaker in situ Syncope and collapse Sinoatrial node dysfunction (CMS/HCC) Procedures Cardiac device check - In Clinic Taty Hagen MD [address] [facility], [address] [address] Referral ID Status Reason Start Date Expiration Date Visits Requested Visits Authorized [id number] Pending Review Perform Procedure 04/01/2023 09/28/2023 1 1 Specialty Diagnoses / Procedures Referred By Contac t Referred To Contact Diagnoses Permanent atrial fibrillation (CMS/HCC) Procedures ECG 12 Lead Taty Hagen MD [address] [facility], [address] [address] Referral ID Status Reason Start Date Expiration Date V isits Requested Visits Authorized [id number] Pending Review 06/27/2023 06/26/2024 1 1 Referral ID Status Reason Start Date Expiration Date V isits Requested Visits Authorized [id number] Pending Review 06/27/2023 06/26/2024 1 1 Specialty Diagnoses / Procedures Referred By Contac t Referred To Contact Cardiology Diagnoses Pacemaker Procedures Cardiac Device Check - Remote Taty Hagen MD [address] [facility], [address] [address] Referral ID Status Reason Start Date Expiration Date Visits Requested Visits Authorized [id number] Pending Review Perform Procedure 3 06/26/2024 52 52 Specialty Diagnoses / Procedures Referred By Contac t Referred To Contact Cardiology Diagnoses Pacemaker Procedures Cardiac Device Check - In Clinic Taty Hagen MD [address] [facility], [address] [address] Referral ID Status Reason Start Date Expiration Date Visits Requested Visits Authorized [id number] Pending Review Perform Procedure 3 06/26/2024 52 52 Additional Source Comments INFORMATION SOURCE (unrecogn ized section and content) DATE CREATED AUTHOR 08/03/2018 [facility] DATE CREATED AUTHOR AUTHOR'S ORGANIZ ATION 05/01/2020 [facility] DATE CREATED AUTHOR AUTHOR'S ORGANIZ ATION 05/29/2022 [facility] [place] DATE CREATED AUTHOR AUTHOR'S ORGANIZ ATION 05/30/2022 [facility] DATE CREATED AUTHOR AUTHOR'S ORGANIZ ATION 10/18/2022 [facility] DATE CREATED AUTHOR AUTHOR'S ORGANIZ ATION 04/06/2023 [facility] DATE CREATED AUTHOR AUTHOR'S ORGANIZ ATION 11/20/[address] [facility] EPIC DATE CREATED AUTHOR AUTHOR'S ORGANIZ ATION 12/12/2023 [facility] DATE CREATED AUTHOR AUTHOR'S ORGANIZ ATION 12/13/2023 [facility] DATE CREATED AUTHOR AUTHOR'S ORGANIZ ATION 01/31/2024 [facility] DATE CREATED AUTHOR AUTHOR'S ORGANIZ ATION 02/02/2024 [facility] DATE CREATED AUTHOR AUTHOR'S ORGANIZ ATION 03/31/2024 [facility] DATE CREATED AUTHOR AUTHOR'S ORGANIZ ATION 04/06/2024 [facility] DATE CREATED AUTHOR AUTHOR'S ORGANIZ ATION 04/10/2024 [facility] DATE CREATED AUTHOR AUTHOR'S ORGANIZ ATION 07/02/2024 [facility] DATE CREATED AUTHOR AUTHOR'S ORGANIZ ATION 01/10/2025 [facility] Care Team (unrecognized sect ion and content) Team Status: Active Member Role Status Dates Apurva Tatum MD Primary Care Provider Active Team Status: Inactive Member Role Status Dates Apurva Tatum MD Primary Care Provider Active Josh Mauro MD Attending Provider Active Playground Official Relationship Specialty Start Date End Date Apurva Tatum MD [address] [place] [address] PCP - General Family Medicine 10/07/22 Playground Official Relationship Specialty Start Date End Date Apurva Tatum MD [address] [place] [address] PCP - General Family Medicine 10/07/22 Playground Official Relationship Specialty Start Date End Date Apurva Tatum MD [address] [place] [address] PCP - General Family Medicine 10/07/22 Playground Official Relationship Specialty Start Date End Date Apurva Tatum MD [address] [place] [address] PCP - General 05/29/21 Taty Hagen MD [address] [facility], [address] [place] [address] Consulting Physician Cardiology 06/27/23 Playground Official Relationship Specialty Start Date End Date Apurva Tatum MD [address] [place] [address] PCP - General 05/29/21 Taty Hagen MD [facility] [address] [facility], [address] [place] [address] Consulting Physician Cardiology 06/27/23 Playground Official Relationship Specialty Start Date End Date Apurva Tatum MD [address] [place] [address] PCP - General 05/29/21 Taty Hagen MD [address] [place] [address] Consulting Physician Cardiology 06/27/23 Playground Official Relationship Specialty Start Date End Date Apurva Tatum MD [address] [place] [address] PCP - General 05/29/21 Taty Hagen MD [address] [place] [address] Consulting Physician Cardiology 06/27/23 Komal Ventura, WALLPAPER SCRAPER-WESTERN PHILOSOPHY PROFESSOR [address] [facility] Office [address], [address] [place] [address] Nurse Practitioner Cardiology 12/19/23 Playground Official Relationship Specialty Start Date End Date Apurva Tatum MD [address] [place] [address] PCP - General Family Medicine 01/28/24 Playground Official Relationship Specialty Start Date End Date Apurva Tatum MD [address] [place] [address] PCP - General Family Medicine 01/28/24 Playground Official Relationship Specialty Start Date End Date Apurva Tatum MD [address] [place] [address] PCP - General Family Medicine 01/28/24 Playground Official Relationship Specialty Start Date End Date Apurva Tatum MD [address] [place] [address] PCP - General Family Medicine 01/28/24 Playground Official Relationship Specialty Start Date End Date Apurva Tatum MD [address] [place] [address] PCP - General Family Medicine 01/28/24 Playground Official Relationship Specialty Start Date End Date Apurva Tatum MD [address] [place] [address] PCP - General Family Medicine 01/28/24 Team Status: Inactive Member Role Status Dates Apurva Tatum MD Primary Care Provider Active Start: March 08, 2024 End: March 08, 2024 Josh Mauro MD Attending Provider Active S tart: March 08, 2024 End: March 08, 2024 Team Status: Inactive Member Role Status Dates Apurva Tatum MD Primary Care Provider Active Start: March 23, 2024 End: March 23, 2024 Josh Mauro MD Attending Provider Active S tart: March 23, 2024 End: March 23, 2024 Playground Official Relationship Specialty Start Date End Date Apurva Tatum MD [address] [place] [address] PCP - General Family Medicine 01/28/24 Negrito Maya MD [address] [place] [address] Physician Orthopaedic Surgery 03/20/24 Playground Official Relationship Specialty Start Date End Date Apurva Tatum MD [address] [place] [address] PCP - General Family Medicine 01/28/24 Negrito Maya MD [address] [place] [address] Physician Orthopaedic Surgery 03/20/24 Team Status: Inactive Member Role Status Dates Apurva Tatum MD Primary Care Provider Active Start: April 09, 2024 End: April 09, 2024 Josh Mauro MD Attending Provider Active S tart: April 09, 2024 End: April 09, 2024 Team Status: Inactive Member Role Status Dates Apurva Tatum MD Primary Care Provider Active Start: April 13, 2024 End: April 13, 2024 Josh Mauro MD Attending Provider Active S tart: April 13, 2024 End: April 13, 2024 Playground Official Relationship Specialty Start Date End Date Apurva Tatum MD [address] [place] [address] PCP - General 05/29/21 Taty Hagen MD [address] [place] [address], [facility] [address] [place] [address] Timber Spotter Electrophysiology 06/18/24 Playground Official Relationship Specialty Start Date End Date Apurva Tatum MD [address] [place] [address] PCP - General 05/29/21 Taty Hagen MD [facility] [address] [facility], [facility] [address] [place] [address] Timber Spotter Electrophysiology 06/18/24 Playground Official Relationship Specialty Start Date End Date Apurva Tatum MD [address] [place] [address] PCP - General 05/29/21 Taty Hagen MD [address] [place] [address], [facility] [address] [place] [address] Timber Spotter Electrophysiology 06/18/24 Playground Official Relationship Specialty Start Date End Date Apurva Tatum MD [address] [place] [address] PCP - General 05/29/21 Taty Hagen MD [address] [place] [address], [facility] [address] [place] [address] Timber Spotter Electrophysiology 06/18/24 Goals (unrecognized section and content) Goals may be documented in a n alternate section REASON FOR VISIT (unrecogniz ed section and content) Specialty Diagnoses / Procedures Referred By Contac t Referred To Contact Diagnoses Ulcer of left heel, limited to breakdown of skin (HCC) Ulcer of left heel, limited to breakdown of skin (HCC) [L97.421] Procedures WI DEBRIDEMENT SUBCUTANEOUS TISSUE 20 SQ CM/< LEFT HEEL WOUND DEBRIDEMENT AND EPIFIX APPLICATION Mario Hensley, DPM [address] [facility], [place] [address] [facility] [address] [place] [address] Referral ID Status Reason Start Date Expiration Date Visits Re quested Visits Authorized [id number] 1 1 Reason Comments Follow-up 6 month Specialty Diagnoses / Procedures Referred By Contac t Referred To Contact Diagnoses Permanent atrial fibrillation (CMS/HCC) Procedures ECG 12 Lead Taty Hagen MD [address] [facility], [address] [address] Referral ID Status Reason Start Date Expiration Date V isits Requested Visits Authorized [id number] Pending Review 06/27/2023 06/26/2024 1 1 Specialty Diagnoses / Procedures Referred By Contac t Referred To Contact Cardiology Diagnoses Cardiac pacemaker in situ Syncope and collapse Sinoatrial node dysfunction (CMS/HCC) Procedures Cardiac device check - In Clinic Taty Hagen MD [address] [address] Referral ID Status Reason Start Date Expiration Date Visits Requested Visits Authorized [id number] Pending Review Perform Procedure 04/01/2023 09/28/2023 1 1 Specialty Diagnoses / Procedures Referred By Contac t Referred To Contact Cardiology Diagnoses Pacemaker Procedures Cardiac Device Check - Remote Taty Hagen MD [address] [facility], [address] [address] Referral ID Status Reason Start Date Expiration Date Visits Requested Visits Authorized [id number] Pending Review Perform Procedure 06/26/2024 52 52 Specialty Diagnoses / Procedures Referred By Contac t Referred To Contact Cardiology Diagnoses Pacemaker Procedures Cardiac Device Check - In Clinic Taty Hagen MD [address] [facility], [address] [address] Referral ID Status Reason Start Date Expiration Date Visits Requested Visits Authorized [id number] Pending Review Perform Procedure 3 06/26/2024 52 52 Reason Comments Trauma/complex Medical Situation Specialty Diagnoses / Procedures Referred By Contac t Referred To Contact Emergency Medicine Diagnoses Unspecified displaced fracture of second cervical vertebra, initial encounter for closed fracture Epidural hemorrhage with loss of consciousness status unknown, initial encounter TRAUMA- Fall Procedures NA [facility] [address] [place] [id number] Phone: [phone] [facility] [address] [place] [id number] Phone: [phone] Referral ID Status Reason Start Date Expiration Date Visits Re quested Visits Authorized [id number] 3 3 Specialty Diagnoses / Procedures Referred By Contac t Referred To Contact Radiology Diagnoses Closed odontoid fracture, initial encounter ([facility]) Procedures XR C-SPINE AP/LAT/OBLS/ODO 5 VIEWS Guillermina Troncoso PA-C [address] [place] [address] [place] [address] [facility]IOLOGY [address] [place] [address] [place] [address] Referral ID Status Reason Start Date Expiration Date Visits Re quested Visits Authorized [id number] Closed 02/17/2024 02/16/2025 1 1 Reason Comments Joint Pain Referral ID Status Reason Start Date Expiration Date Visits Re quested Visits Authorized [id number] Closed 03/25/2024 03/25/2025 1 1 Specialty Diagnoses / Procedures Referred By Contac t Referred To Contact Cardiology Diagnoses Pacemaker Sinus node dysfunction (Multi) Procedures Cardiac Device Check - Remote Taty Hagen MD [address] [facility] Medical [facility], [address] [place] [address] Referral ID Status Reason Start Date Expiration Date Visits Requested Visits Authorized [id number] Pending Review Perform Procedure 04/06/2024 04/06/2025 1 1 Reason Comments Follow-up 6 month with device check Continuous Active and Recently Administ ered Medications (unrecognized section and content) Medication Order 10/09/2022 10/10/2022 10/11/2022 lactated ringers IV soln infusion IntraVENous, at 100 mL/hr, CONTINUOUS, Starting on Fri10/11/22 at 0715 0702 (New Bag - Prov ider: Maisha Yarbrough RN)0805 (NoRateChange - Provider: NILESH Trevino CRNA)0837 (Rate/Dose Change - Provider: NILESH Trevino CRNA) PRN Medication Order 10/09/2022 10/10/2022 10/11/2022 bupivacaine (PF) (MARCAINE) 0.5 % injection (CANCELED) PRN, Starting on Fri10/11/22 at 0824, Until Fri10/11/22 at 0842, Intra-op 0824 (Given - Provid er: NORM LarkinM - Comment: used as local anesthetic per Dr. Hensley. 4.5mL used and mixed with 4.5 of Lidocaine 2%.) lidocaine 2 % injection (CANCELED) PRN, Starting on Fri10/11/22 at 0825, Until Fri10/11/22 at 0842, Intra-op 0825 (Given - Provid er: NORM LarkinM - Comment: used as local anesthetic per Dr. Hensley. 4.5mL used and mixed with 4.5 of Marcaine 0.5%) sod chloride IRR soln 0.9 % 100 mL with gentamicin (GARAMYCIN) 80 mg (CANCELED) PRN, Starting on Fri10/11/22 at 0832, Intra-op 0832 (Given - Provid er: NORM LarkinM - Comment: used as irrigation during procedure per Dr. Hensley) Scheduled Medication Order 02/03/2024 02/04/2024 02/05/2024 acetaminophen (TYLENOL) tablet 1,000 mg, Oral, EVERY 8 HOURS, First dose (after last modification) on Fri01/30/24 at 2330, Until Discontinued 0058 (Given - Provider: Carolina Knapp RN)0930 (Hold/Not Given - Provider: Shama Kaminski RN - Reason: Patient refused)171 (Given - Provider: Shama Kaminski RN) 0130 (Hold/Not Given - Provider: Korin Eubanks RN - Reason: Patient sleeping)0855 (Given - Provider: Dandre Peterson RN)172 (Given - Provider: Jackie Caldera) 0130 (Hold/Not Given - Provider: Korin Eubanks RN - Reason: Patient sleeping)1010 (Given - Provider: Omaira Gresham RN)1730 (Due - Provider: Corwin Acosta [facility]) cholecalciferol (VITAMIN D3) tablet 1,000 Units (25 mcg), Oral, DAILY, First dose on Fri01/28/24 at 0900, Until Discontinued 0814 (Given - Provider: Shama Kaminski RN) 0855 (Given - Provider: Dandre Peterson RN) 1010 (Given - Provider: Omaira Gresham RN) citalopram (CeleXA) TABS 20 mg, Oral, DAILY, First dose (after last modification) on Fri02/03/24 at 0900, Until Discontinued 0814 (Given - Provider: Shama Kaminski RN) 0856 (Given - Provider: Dandre Peterson, RN) 1055 (Given - Provider: Omaira Gresham RN) diltiazem (CARDIZEM CD) 24 hour capsule 120 mg, Oral, AT BEDTIME, First dose on Fri01/28/24 at 2200, Until Discontinued 2020 (Given - Provider: Korin Eubanks RN) 202 (Given - Provider: Korin Eubanks RN) 2200 (Due) enoxaparin (LOVENOX) 60 MG/0.6ML injection 50 mg 50 mg (rounded from 47.6 mg = 1 mg/kg 47.6 kg), Subcutaneous, 2 TIMES DAILY, First dose on Fri02/05/24 at 0930, Until Discontinued 1010 (Given - Provider: Omaira Gresham RN)2100 (Due) furosemide (LASIX) tablet 20 mg, Oral, EVERY 48 HOURS, First dose on Fri01/28/24 at 0727, Until Discontinued 0814 (Given - Provider: Shama Kaminski RN - Comment: BP 169/70HR 99) 1010 (Given - Provider: Omaira Gresham RN) insulin lispro (HumaLOG) 100 UNIT/ML injection 1-7 Units, Subcutaneous, 3 TIMES DAILY BEFORE MEALS, First dose on Fri01/31/24 at 0800, Until Discontinued 0755 (Hold/Not Given - Provider: Shama Kaminski RN - Reason: Not indicated - Comment: BS 119)1208 (Given - Provider: Shama Kaminski RN - Comment: 161)1716 (Given - Provider: Shama Kaminski RN - Comment: BS 194) 0800 (Hold/Not Given - Provider: Dandre Peterson RN - Reason: Not indicated)1148 (Given - Provider: Dandre Peterson RN)1700 (Hold/Not Given - Provider: Dandre Peterson RN - Reason: Not indicated) 0800 (Hold/Not Given - Provider: Omaira Gresham RN - Reason: Not indicated)1213 (Given - Provider: Omaira Gresham RN)1700 (Hold/Not Given - Provider: Omaira Gresham RN - Reason: Not indicated) lisinopril (ZESTRIL) tablet 2.5 mg, Oral, DAILY, First dose on Fri01/28/24 at 0900, Until Discontinued 813 (Given - Provider: Shama Kaminski RN - Comment: BP 169/70HR 99) 0856 (Given - Provider: Dandre Peterson RN) 1055 (Given - Provider: Omaira Gresham RN) melatonin tablet 3 mg, Oral, AT BEDTIME, First dose on Fri01/28/24 at 2200, Until Discontinued 2020 (Given - Provider: Korin Eubanks, JARED) 2027 (Given - Provider: Korin Eubanks, JARED) 0 (Due) Normal consistency supplement Oral, 3 TIMES DAILY WITH MEALS, First dose on Fri01/29/24 at 0800, Until Discontinued, Normal Consistency Supplement: Boost GC Max-Vanilla 0800 (Given - Provider: Shama Kaminski RN)1200 (Given - Provider: Shama Kaminski RN)1700 (Given - Provider: Shama Kaminski RN) 0800 (Hold/Not Given - Provider: Dandre Peterson RN - Reason: Patient refused)1148 (Given - Provider: Dandre Peterson, RN)1700 (Given - Provider: Dandre Peterson, RN) 1010 (Given - Provider: Omaira Gresham, JARED)1213 (Given - Provider: Omaira Gresham, JARED)1700 (Due) polyethylene glycol (MIRALAX) 17 g packet 17 g, Oral, DAILY, First dose on Fri01/31/24 at 0900, Until Discontinued 0814 (Given - Provider: Shama Kaminski, RN) 0900 (Hold/Not Given - Provider: Dandre Peterson, JARED - Reason: Not indicated) 1010 (Given - Provider: Omaira Gresham, RN) pravastatin (PRAVACHOL) tablet 80 mg, Oral, DAILY, First dose on Fri01/28/24 at 0900, Until Discontinued 0814 (Given - Provider: Shama Kaminski RN) 0855 (Given - Provider: Dandre Peterson, RN) 1055 (Given - Provider: Omaira Gresham, JARED) senna (SENOKOT) tablet 8.6 mg, Oral, AT BEDTIME, First dose on Fri02/03/24 at 2200, Until Discontinued 2020 (Given - Provider: Korin Eubanks RN) 2027 (Given - Provider: Korin Eubanks RN) 2200 (Due) vitamin B-12 (CYANOCOBALAMIN) tablet 1,000 mcg, Oral, DAILY, First dose on Fri01/31/24 at 0900, Until Discontinued 0814 (Given - Provider: Shama Kaminski RN) 0855 (Given - Provider: Dandre Peterson RN) 1055 (Given - Provider: Omaira Gresham, JARED) warfarin (COUMADIN) tablet 2 mg, Oral, DAILY WARFARIN, First dose (after last modification) on Fri02/04/24 at 1700, Until Discontinued 172 (Given - Provider: Jackie Caldera) 1700 (Due) PRN Medication Order 02/03/2024 02/04/2024 02/05/2024 dextrose (GLUTOSE) 40 % oral gel(Linked Group 1) 15 g of glucose, Buccal, PRN, Starting on Fri01/30/24 at 1708, Until Discontinued, blood glucose between 50 - 69 mg/dL, and with no IV access, alert and able to swallow. dextrose (GLUTOSE) 40 % oral gel(Linked Group 1) 30 g of glucose, Buccal, PRN, Starting on Fri01/30/24 at 1708, Until Discontinued, blood glucose of 49mg/dL or less, and with no IV access, alert and able to swallow. dextrose 10 % iv infusion(Linked Group 1) 125 mL, Intravenous, at 999 mL/hr, PRN, Starting on Fri01/30/24 at 1708, Until Discontinued, For blood glucose less than 70 mg/dL, with IV access and with loss of consciousness or unable to swallow or NPO glucagon (GLUCAGEN) 1 MG injection(Linked Group 1) 1 mg, Subcutaneous, PRN, Starting on Fri01/30/24 at 1708, Until Discontinued, For blood glucose less than 70 mg/dL and with no IV access with loss of consciousness or alert and unable to swallow. ondansetron (ZOFRAN-ODT) disintegrating tablet 4 mg, Oral, EVERY 6 HOURS PRN, Starting on Fri01/30/24 at 1201, Until Discontinued, Nausea Linked Groups Order Group 1: dextrose 10 % iv infusionJump to med 125 mL, Intravenous, at 999 mL/hr, PRN, Starting on Fri01/30/24 at 1708, Until Discontinued, For blood glucose less than 70 mg/dL, with IV access and with loss of consciousness or unable to swallow or NPO Or glucagon (GLUCAGEN) 1 MG injectionJump to med 1 mg, Subcutaneous, PRN, Starting on Fri01/30/24 at 1708, Until Discontinued, For blood glucose less than 70 mg/dL and with no IV access with loss of consciousness or alert and unable to swallow. Or dextrose (GLUTOSE) 40 % oral gelJump to med 15 g of glucose, Buccal, PRN, Starting on Fri01/30/24 at 1708, Until Discontinued, blood glucose between 50 - 69 mg/dL, and with no IV access, alert and able to swallow. Or dextrose (GLUTOSE) 40 % oral gelJump to med 30 g of glucose, Buccal, PRN, Starting on Fri01/30/24 at 1708, Until Discontinued, blood glucose of 49mg/dL or less, and with no IV access, alert and able to swallow. FOR RECORDS PERTAINING TO PATIENTS WHO ARE OR HAVE BEEN ENROLLED IN A CHEMICAL DEPENDENCY/SUBSTANCEABUSE PROGRAM, SOME INFORMATION MAY BE OMITTED. This clinical summary was aggregated from multiple sources. Caution should be exercised in using it in the provision of clinical care. This summary normalizes information from multiple sources, and as a consequence, information in this document may materially change the coding, format and clinical context of patient data. In addition, data may be omitted in some cases. CLINICAL DECISIONS SHOULD BE BASED ON THE PRIMARY CLINICAL RECORDS. [facility]. provides no warranty or guarantee of the accuracy or completeness of information in this document.
[2025-01-13 22:33] LABS: Hematocrit 37.7 % (36.0-48.0); Hemoglobin 12.7 g/dL (12.0-16.0); Immature Granulocytes Abs Auto 0.05 10^3/uL (0.00-0.03); Immature Granulocytes Pct Auto 0.5 % (0.0-0.5); Lymphocytes Absolute Auto 1.3 10^3/uL (1.2-3.8); Mean Corpuscular HGB Conc 33.7 g/dL (29.9-35.2); Mean Corpuscular Hemoglobin 28.6 pg (26.7-34.0); Mean Corpuscular Volume 84.9 fL (81.0-99.0); Platelet Count 305 10^3/uL (150-450); Red Blood Count 4.44 10^6/uL (4.20-5.40); White Blood Count 10.0 10^3/uL (4.0-11.0)
--- NOTE | 2025-01-13 22:36 | ED.SYNCOPE1 ---
HPI - Syncope General Chief Complaint: Syncope Stated Complaint: WEAKNESS, VOMITING Time Seen by Provider: 01/13/25 21:56 Source: other Source comment: Report from facility and EMS Mode of arrival: ambulance History of Present Illness HPI narrative: This 84-year-old female with a history of dementia is transferred from the [facility] where she resides after she had a syncopal event after having a large bowel movement. The patient did not fall. There was no injury reported. The patient has no complaints. She states she is hungry and wants a BLT. Her family arrived shortly after she did. They states she is in her usual state of health and at her baseline. The patient is complaining that she has not been given any food all day. Related Data Home Medications ?Medication ?Instructions ?Recorded ?Confirmed acetaminophen 500 mg capsule 1,000 mg PO .Q8HRS PRN fever or 04/23/24 04/23/24 pain cholecalciferol (vitamin D3) 25 25 mcg PO DAILY 04/23/24 04/23/24 mcg (1,000 unit) capsule citalopram 20 mg tablet (Celexa) 20 mg PO DAILY 04/23/24 04/23/24 cyanocobalamin (vitamin B-12) 1,000 mcg PO DAILY 04/23/24 04/23/24 1,000 mcg capsule hydroxyzine HCl 10 mg tablet 10 mg PO Q8H PRN Restless 04/23/24 04/23/24 insulin lispro 100 unit/mL 1 sliding scale dose subcut 04/23/24 04/23/24 subcutaneous cartridge (Humalog USEASDIRECTD U-100 Insulin) loperamide 2 mg capsule (Imodium 2 mg PO Q12H PRN loose stool 04/23/24 04/23/24 A-D) sennosides 8.6 mg capsule (senna) 8.6 mg PO DAILY PRN constipation 04/23/24 04/23/24 simvastatin 40 mg tablet 40 mg PO .QHS 04/23/24 04/23/24 trazodone 50 mg tablet 50 mg PO DAILY 04/23/24 04/23/24 warfarin 2.5 mg tablet 2.5 mg PO DAILY 04/23/24 04/23/24 Previous Rx's ?Medication ?Instructions ?Recorded canagliflozin 100 mg tablet 100 mg PO QD #30 tabs 04/27/24 (Invokana) diltiazem HCl 180 mg 180 mg PO QD #30 caps 04/27/24 capsule,extended release 24 hr food supplemt, lactose-reduced 1 ea PO BID #5,688 mL 04/27/24 (Ensure Active Protein-Muscle oral liquid) furosemide 40 mg tablet (Lasix) 40 mg PO QAM #30 tabs 04/27/24 Allergies Allergy/AdvReac Type Severity Reaction Status Date / Time No Known Drug Allergies Allergy Verified 04/23/24 09:05 Review of Systems ROS Status of ROS 10 or more systems reviewed and unremarkable except as noted in history and below [facility] Medical History (Updated 01/13/25 @ 22:56 by Shari Ramos MD) Vitamin B12 deficiency ?E53.8 - Deficiency of other specified B group vitamins (ICD-10) Vitamin D deficiency ?E55.9 - Vitamin D deficiency, unspecified (ICD-10) Constipation ?K59.00 - Constipation, unspecified (ICD-10) Leukocytosis ?D72.829 - Elevated white blood cell count, unspecified (ICD-10) Acute combined systolic (congestive) and diastolic (congestive) heart failure ?I50.41 - Acute combined systolic (congestive) and diastolic (congestive) heart failure (ICD-10) Pleural effusion ?J90 - Pleural effusion, not elsewhere classified (ICD-10) Hyponatremia ?E87.1 - Hypo-osmolality and hyponatremia (ICD-10) Anemia in chronic kidney disease ?N18.9 - Chronic kidney disease, unspecified (ICD-10) ?D63.1 - Anemia in chronic kidney disease (ICD-10) Depression with anxiety ?F41.8 - Other specified anxiety disorders (ICD-10) Acute on chronic diastolic (congestive) heart failure ?I50.33 - Acute on chronic diastolic (congestive) heart failure (ICD-10) Atrial fibrillation ?I48.91 - Unspecified atrial fibrillation (ICD-10) Accidental fall ?W19.XXXA - Unspecified fall, initial encounter (ICD-10) Supratherapeutic INR ?R79.1 - Abnormal coagulation profile (ICD-10) Volume overload ?E87.70 - Fluid overload, unspecified (ICD-10) Congestive heart failure ?I50.9 - Heart failure, unspecified (ICD-10) Pacemaker ?Z95.0 - Presence of cardiac pacemaker (ICD-10) History of CVA (cerebrovascular accident) ?Z86.73 - Personal history of transient ischemic attack (TIA), and cerebral infarction without residual deficits (ICD-10) Hypertension ?I10 - Essential (primary) hypertension (ICD-10) Hyperlipidemia ?E78.5 - Hyperlipidemia, unspecified (ICD-10) Depression ?F32.A - Depression, unspecified (ICD-10) Dementia ?F03.90 - Unspecified dementia, unspecified severity, without behavioral disturbance, psychotic disturbance, mood disturbance, and anxiety (ICD-10) PAD (peripheral artery disease) ?I73.9 - Peripheral vascular disease, unspecified (ICD-10) CKD stage 3 secondary to diabetes ?E11.22 - Type 2 diabetes mellitus with diabetic chronic kidney disease (ICD-10) ?N18.30 - Chronic kidney disease, stage 3 unspecified (ICD-10) Type 2 diabetes mellitus ?E11.9 - Type 2 diabetes mellitus without complications (ICD-10) On Coumadin for atrial fibrillation ?I48.91 - Unspecified atrial fibrillation (ICD-10) ?Z79.01 - senior living (current) use of anticoagulants (ICD-10) Permanent atrial fibrillation ?I48.21 - Permanent atrial fibrillation (ICD-10) Surgical History (Updated 04/23/24 @ 14:09 by Tracie Urbano RN) H/O: hysterectomy ?Z90.710 - Acquired absence of both cervix and uterus (ICD-10) Family History (Updated 04/23/24 @ 12:59 by Tracie Urbano RN) Sister Family history of hypertension Mother Family history of diabetes mellitus Social History (Updated 04/23/24 @ 12:59 by Tracie Urbano RN) Within the past year, how often did you have a drink containing alcohol: never Score interpretation: A score less than 3 is consistent with normal alcohol consumption. Smoking status: Never smoker Non-prescribed substance use: denies use Highest level of school completed/degree received: GED or equivalent Little interest or pleasure in doing things: not at all Feeling down, depressed, or hopeless: not at all Exam Narrative Exam Narrative: Vital signs and Nursing Notes reviewed: Patient has a normal pulse, normal blood pressure, she is not hypoxic with pulse ox of 100% on room air General: Awake, alert, oriented, no acute distress, lying comfortably on the stretcher-patient asked me several times why she is here. No distress noted. HEENT: Normocephalic atraumatic, mucous membranes are moist and pink, eyes are clear, normal conjunctiva, vision is grossly intact, posterior pharynx is normal in appearance. Neck: Supple, no meningeal signs, no JVD Chest: Lungs are clear to auscultation with good air entry, there is no wheezing rhonchi or rales appreciated no accessory muscle use, patient is speaking in complete sentences-no chest wall tenderness to palpation CVS: Regular rate and rhythm S1-S2, no murmurs rubs or gallops, pulses are brisk and equal bilaterally ABD: Soft, nondistended, nontender, no rebound guarding or rigidity, bowel sounds are normal, no pulsatile masses appreciated Extremities: Moving all extremities, no lower extremity tenderness or swelling noted, negative Homans' sign, pulses are brisk and equal bilaterally Skin: Normal in appearance without rash,pallor, petechiae or purpura Neuro: No focal deficits, memory loss otherwise normal neuroexam. Constitutional Vital Signs, click to edit/add: Last Vital Signs Pulse 74 01/13/25 21:50 Resp 16 01/13/25 21:50 BP 138/70 01/13/25 21:50 Pulse Ox 100 01/13/25 21:50 O2 Del Method Room Air 01/13/25 21:50 Course Vital Signs Vital signs: Vital Signs Pulse Rate 74 01/13/25 21:50 Respiratory Rate 16 01/13/25 21:50 Blood Pressure 138/70 01/13/25 21:50 Pulse Oximetry 100 01/13/25 21:50 Oxygen Delivery Method Room Air 01/13/25 21:50 Pulse Rate 74 01/13/25 21:50 Respiratory Rate 16 01/13/25 21:50 Blood Pressure 138/70 01/13/25 21:50 Pulse Oximetry 100 01/13/25 21:50 Oxygen Delivery Method Room Air 01/13/25 21:50 MDM - Syncope MDM Narrative Medical decision making narrative: This 84-year-old female is brought to the emergency department from the [place] by EMS after she had a syncopal event after having a large bowel movement. The patient was being assisted by the staff at that time and there was no fall or injury. Apparently she was on the toilet and just became briefly unresponsive. On arrival she is awake alert and that her baseline. Her vital signs are stable. EKG is in atrial fibrillation at 78 bpm. Her physical exam is benign. Her only complaint is that she is hungry. A cardiac workup was ordered. She has a normal white count and hemoglobin. Electrolytes are normal with a mildly elevated glucose at 210. Troponin is normal. The patient's family feels comfortable taking her back to the [facility] by private vehicle. Lab Data Attestation: I reviewed the patient's lab results. Labs: Lab Results 01/13/25 Range/Units 22:25 WBC 10.0 (4.0-11.0) 10^3/uL RBC 4.44 (4.20-5.40) 10^6/uL Hgb 12.7 (12.0-16.0) g/dL Hct 37.7 (36.0-48.0) % MCV 84.9 (81.0-99.0) fL MCH 28.6 (26.7-34.0) pg MCHC 33.7 (29.9-35.2) g/dL RDW 15.2 H (11.0-15.0) % Plt Count 305 (150-450) 10^3/uL MPV 10.7 (9.5-13.5) fL Neut % (Auto) 78.3 H (43.0-75.0) % Lymph % (Auto) 13.2 L (20.5-60.0) % Cameron % (Auto) 6.5 (1.7-12.0) % Eos % (Auto) 0.8 L (0.9-7.0) % Baso % (Auto) 0.7 (0.2-2.0) % Neut # (Auto) 7.8 H (1.4-6.5) 10^3/uL Lymph # (Auto) 1.3 (1.2-3.8) 10^3/uL Cameron # (Auto) 0.7 (0.3-0.8) 10^3/uL Eos # (Auto) 0.1 (0.0-0.7) 10^3/uL Baso # (Auto) 0.1 (0.0-0.1) 10^3/uL Abs Immat Gran (auto) 0.05 H (0.00-0.03) 10^3/uL Imm/Tot Granulo (auto) 0.5 (0.0-0.5) % Sodium 140 (136-145) mmol/L Potassium 3.2 L (3.5-5.1) mmol/L Chloride 99 (98-107) mmol/L Carbon Dioxide 36.4 H (21.0-32.0) mmol/L Anion Gap 7.8 BUN 13.0 (7.0-18.0) mg/dL Creatinine 1.28 H (0.55-1.02) mg/dL Est GFR ( Amer) 48 L (>=60 mL/min/1.73m^2) Est GFR (Non-Af Amer) 40 L (>=60 mL/min/1.73m^2) BUN/Creatinine Ratio 10.2 Glucose 210 H (74-106) mg/dL Calcium 8.5 (8.5-10.1) mg/dL Total Bilirubin 0.4 (0.2-1.0) mg/dL AST 17 (15-37) U/L ALT 16 (14-59) U/L Alkaline Phosphatase 64 (46-116) U/L Troponin I High Sens 15.7 (4.0-51.3) pg/mL Total Protein 5.6 L (6.4-8.2) g/dL Albumin 2.4 L (3.4-5.0) g/dL Globulin 3.2 g/dL Albumin/Globulin Ratio 0.8 ECG Data Attestation: I personally reviewed and interpreted this ECG as follows: (EKG interpretation atrial fibrillation at 78 bpm, right bundle branch block, left axis deviation, pacer spikes present, no acute ST segment elevation) Discharge Plan Discharge Chief Complaint: Syncope Clinical Impression: Vasovagal syncope Patient Disposition: Home, Self-Care Time of Disposition Decision: 22:55 Condition: Good Prescriptions / Home Meds: No Action loperamide [Imodium A-D] 2 mg capsule 2 mg PO Q12H PRN (Reason: loose stool) senna 8.6 mg capsule 8.6 mg PO DAILY PRN (Reason: constipation) simvastatin 40 mg tablet 40 mg PO .QHS trazodone 50 mg tablet 50 mg PO DAILY cyanocobalamin (vitamin B-12) 1,000 mcg capsule 1,000 mcg PO DAILY warfarin 2.5 mg tablet 2.5 mg PO DAILY acetaminophen 500 mg capsule 1,000 mg PO .Q8HRS PRN (Reason: fever or pain) citalopram [Celexa] 20 mg tablet 20 mg PO DAILY cholecalciferol (vitamin D3) 25 mcg (1,000 unit) capsule 25 mcg PO DAILY Humalog U-100 Insulin 100 unit/mL cartridge 1 sliding scale dose subcut USEASDIRECTD hydroxyzine HCl 10 mg tablet 10 mg PO Q8H PRN (Reason: Restless) Invokana 100 mg Tablet 100 mg PO QD Qty: 30 11RF diltiazem HCl 180 mg Capsule,Extended Release 24hr 180 mg PO QD Qty: 30 11RF Ensure Active Protein-Muscle Liquid 1 ea PO BID Qty: 5688 11RF furosemide [Lasix] 40 mg tablet 40 mg PO QAM Qty: 30 11RF Print Language: Ecuadorean Instructions: Syncope in Older Adults (ED) Referrals: RIKKI PINEDO DO [Primary Care Provider, Family Practice] - 1 week
[2025-01-13 22:49] LABS: Alanine Aminotransferase 16 U/L (14-59); Albumin Globulin Ratio 0.8; Albumin Level 2.4 g/dL (3.4-5.0); Alkaline Phosphatase 64 U/L (46-116); Anion Gap 7.8; Aspartate Amino Transferase 17 U/L (15-37); Blood Urea Nitrogen 13.0 mg/dL (7.0-18.0); Calcium 8.5 mg/dL (8.5-10.1); Carbon Dioxide 36.4 mmol/L (21.0-32.0); Chloride 99 mmol/L (98-107); Estimated GFR (African America 48 (>=60 mL/min/1.73m^2); Estimated GFR (Non-African Ame 40 (>=60 mL/min/1.73m^2); Globulin 3.2 g/dL; Glucose 210 mg/dL (74-106); Potassium 3.2 mmol/L (3.5-5.1); Sodium 140 mmol/L (136-145); Total Protein 5.6 g/dL (6.4-8.2)
--- NOTE | 2025-01-13 23:13 | PC.NURSE ---
i gave this patient's daughter verbal and written discharge orders for this patient. this patient's daughter voices yes to understanding these. at time of discharge this patient's daughter and son voices no concerns or needs for this patient. this patient shows no signs of distress. this patient's daughter will transport this patient back to the [place]. I did call the [place] of this patient coming back to them
== END 2025-01-13 23:12 | disposition home or self-care (01) ==
PROVIDERS: Emergency Provider Emergency Medicine; PCP Family Medicine
DX: R55 Syncope and collapse (principal); F03.90 Unspecified dementia, unspecified severity, without behavioral disturbance, psychotic disturbance, mood disturbance, and anxiety; Z90.710 Acquired absence of both cervix and uterus
CPT/HCPCS: 36415; 80053; 84484; 85025; 93005; 99283